=== PATIENT | male | born 1955 | race Caucasian/White ===

== ENCOUNTER 2017-02-11 16:11 | Emergency (ER) | payer SELFPAY ==
[~2017-02-11] VITALS: Ht 182.9 cm; Wt 65.8 kg
[~2017-02-11 16:11] MED LIST: ENOX40DI3 SQ; FOLI1TAB16 PO; HYDR-2762 PO; METO25TA4 PO; THIA100T22 PO
--- NOTE | 2017-02-11 17:16 | PHYS DOC ---
Past Medical History Past Medical History: Hypertension, Other Additional Past Medical Histor: CHRONIC BACK PAIN Past Surgical History: No Surgical History Alcohol Use: Occasionally Drug Use: None Adult General Chief Complaint Chief Complaint: SUTURE/STAPLE REMOVAL HPI HPI Patient is a 61 year old M who presents with staple removal status post left hip surgery. Patient states he was admitted last Saturday for left hip surgery status post fall while helping his dad fix a car. Patient has 2 incisions on his left hip with a total of [address] Patient denies any drainage from incisions. Patient denies any fevers. Patient denies any symptoms. Patient states he is able to ambulate with minimal pain. Patient states she's had no postoperative complications. Review of Systems Review of Systems GEN: Denies fevers, chills, sweats HEENT: Denies blurred vision, sore throat CV: Denies chest pain RESP: Denies shortness of air, cough GI: Denies n/v/d NEURO: Denies confusion, dizziness MSK: Denies weakness, joint pain/swelling Allergies Allergies Allergies Coded Allergies Type Severity Reaction Last Updated Verified lisinopril Allergy Severe Swelling 01/27/17 Yes Physical Exam Physical Exam GEN.: No apparent distress. Alert and oriented. HEENT: Head is normocephalic, atraumatic NECK: Supple. LUNGS: CTAB. HEART: RRR, S1, S2 present. Peripheral pulses intact ABDOMEN: Soft, nontender. Positive bowel sounds. EXTREMITIES: Without any cyanosis. 2 incisions to the left hip with a total of [address], incisions look clean/dry/intact and no signs of infection at this time del are able to be removed NEUROLOGIC: Normal speech, normal tone PSYCHIATRIC: Normal affect, normal mood. SKIN: No ulcerations Current Patient Data Vital Signs Vital Signs Date Time Temp Pulse Resp B/P (MAP) Pulse Ox O2 Delivery O2 Flow Rate FiO2 02/11/17 16:30 98.4 89 18 200/102 (134) 98 Room Air 98.4 EKG EKG [] Radiology/Procedures Radiology/Procedures Total of 7 del removed from 2 incisions of left hip with no Occasions and no signs of infection[] Course & Med Decision Making Course & Med Decision Making Pertinent Labs and Imaging studies reviewed. (See chart for details) MDM: After reviewing the chart, CC/HPI/PMH, physical exam, I do not believe the patient has a severe postop wound infection or wound dehiscence preventing the del being removed. Patient incision has healed enough to have the del removed. Recommended patient follow with PCP and orthopedics for further evaluation and management. Additional verbal discharge instructions were provided to the patient and that if symptoms get worse or any new symptoms arise that are worrisome to the patient he is to return to the emergency room immediately [] Dragon Disclaimer Dragon Disclaimer This electronic medical record was generated, in whole or in part, using a voice recognition dictation system. Departure Departure Impression: Primary Impression: Removal of staple Disposition: HOME, SELF-CARE Condition: IMPROVED Referrals: DIONE ARREDONDO (PCP) Patient Instructions: Wound Care, [id number] Additional Instructions: Please follow up with your family physician in the next one to 2 days ESTELA VARGAS DO Feb 11, 2017 17:16
[2017-02-11 17:23] VITALS: BP 169/106
== END 2017-02-11 17:30 | disposition home or self-care (01) ==
LOC: ER 16:11
DX: Z48.02 Encounter for removal of sutures (principal); I10 Essential (primary) hypertension; G89.29 Other chronic pain; Z88.8 Allergy status to other drugs, medicaments and biological substances
CPT/HCPCS: 99281

== ENCOUNTER 2018-09-10 03:19 | Inpatient (IN) | payer OTHER ==
[~2018-09-10] VITALS: Ht 182.9 cm; Wt 71.5 kg
[2018-09-10] VITALS (7 sets, daily range): BP systolic 108–161; BP diastolic 62–92
[~2018-09-10 03:19] MED LIST changes: -HYDR-2762 PO; +HYDR-2765 PO
[2018-09-10 03:49] LABS: BASO # 0.2 x10^3/uL (0.0-0.2); BASO % 2 % (0-3); EOS % 1 % (0-3); HEMATOCRIT 25.6 % (39.0-53.0); HEMOGLOBIN 7.8 g/dL (13.0-17.5); LYMPH # 1.9 x10^3/uL (1.0-4.8); LYMPH % 25 % (24-48); MEAN CORPUSCULAR HEMOGLOBIN 19 pg (25-35); MEAN CORPUSCULAR HGB CONC 31 g/dL (31-37); MEAN CORPUSCULAR VOLUME 62 fL (79-100); MONO % 14 % (0-9); NEUT # 4.4 x10^3uL (1.8-7.7); NEUT % 58 % (31-73); PLATELET COUNT 229 x10^3/uL (140-400); RED BLOOD COUNT 4.14 x10^6/uL (4.30-5.70); RED CELL DISTRIBUTION WIDTH 21.7 % (11.5-14.5); WHITE BLOOD COUNT 7.5 x10^3/uL (4.0-11.0)
[2018-09-10 03:59] LABS: PROTHROMBIN TIME PATIENT 18.5 SEC (11.7-14.0)
[2018-09-10] MEDS ORDERED: ASPIRIN 325 MG TABLET PO ONE (04:00)
[2018-09-10] MEDS ORDERED: IV NORMAL SALINE 1000ML BAG 1,000 ML IV ONE (04:00)
[2018-09-10 04:10] LABS: ALBUMIN/GLOBULIN RATIO 0.7 (1.0-1.7); CALCIUM 8.7 mg/dL (8.5-10.1); CREATININE 1.3 mg/dL (0.7-1.3); GFR 55.9; MAGNESIUM 1.6 mg/dL (1.8-2.4); TOTAL BILIRUBIN 1.8 mg/dL (0.2-1.0); TOTAL PROTEIN 7.2 g/dL (6.4-8.2)
[2018-09-10] MEDS ORDERED: ONDANSETRON PF 4 MG/2 ML VIAL. IV PRN (04:15)
[2018-09-10 04:18] LABS: CREATINE KINASE 59 U/L (39-308)
[2018-09-10 04:23] LABS: POTASSIUM 2.4 mmol/L (3.5-5.1)
[2018-09-10] MEDS ORDERED: dilTIAZem INJ 125 MG in IV DEXTROSE 5% 100ML 100 ML IV ONE (04:30)
[2018-09-10] MEDS ORDERED: dilTIAZem IV PUSH 25 MG/5 ML VIAL IVP ONE (04:30)
--- NOTE | 2018-09-10 04:40 | PHYS DOC ---
Past Medical History Past Medical History: Hypertension, Other Additional Past Medical Histor: CHRONIC BACK PAIN Past Surgical History: No Surgical History Alcohol Use: Occasionally Drug Use: None Adult General Chief Complaint Chief Complaint: CHEST PAIN HPI HPI Patient is a 63 year old male who presents with palpitations. Patient states the past 2 weeks he has been having sensation of an abnormal heartbeat. He is unsure the exact moment when these palpitations started and has never had similar symptoms before. Nothing has improved his symptoms. Symptoms are worsened with exertion. Patient denies any chest pain, nausea, vomiting, diaphoresis or abdominal pain. [] Review of Systems Review of Systems Constitutional: Denies fever or chills [] Eyes: Denies redness, or eye pain [] HENT: Denies nasal congestion or sore throat [] Respiratory: Reports exertional dyspnea, denies cough[] Cardiovascular: Reports abnormal heartbeat, denies chest pain[] GI: Denies abdominal pain, nausea, vomiting[] : Denies dysuria or hematuria [] Musculoskeletal: Denies back pain or joint pain, denies edema [] Integument: Denies rash or skin lesions [] Neurologic: Denies headache, focal weakness [] Complete systems were reviewed and found to be within normal limits, except as documented in this note. Current Medications Current Medications Current Medications Medications (Trade) Dose Ordered Sig/[facility] Start Time Stop Time Status Last Admin Dose Admin Aspirin (Luc Aspirin) 325 mg 1X ONCE 09/10/18 04:00 09/10/18 04:01 DC 09/10/18 04:13 325 MG Sodium Chloride 1,000 ml @ 1,000 mls/hr 1X ONCE 09/10/18 04:00 09/10/18 04:59 DC 09/10/18 04:15 1,000 MLS/HR Allergies Allergies Allergies Coded Allergies Type Severity Reaction Last Updated Verified lisinopril Allergy Severe Swelling 01/27/17 Yes Physical Exam Physical Exam Constitutional: No acute distress, non-toxic appearance. [] HENT: Normocephalic, atraumatic. [] Eyes: EOMI, conjunctiva normal, no discharge. [] Neck: Normal range of motion, supple. [] Cardiovascular: Irregularly irregular, tachycardic [] Lungs & Thorax: Bilateral breath sounds clear to auscultation [] Abdomen: Soft, no tenderness. [] Skin: Warm, dry, no erythema, no rash, jaundice. [] Back: No tenderness, no CVA tenderness. [] Extremities: No cyanosis, no clubbing, ROM intact, no edema. [] Neurologic: Alert and oriented X 3, no focal deficits noted. [] Psychologic: Affect normal, mood normal. [] Current Patient Data Vital Signs Vital Signs Date Time Temp Pulse Resp B/P (MAP) Pulse Ox O2 Delivery O2 Flow Rate FiO2 09/10/18 03:30 98.7 180 119/93 (102) 100 Room Air 98.7 Lab Values Laboratory Tests Test 09/10/18 03:39 White Blood Count 7.5 x10^3/uL (4.0-11.0) Red Blood Count 4.14 x10^6/uL (4.30-5.70) L Hemoglobin 7.8 g/dL (13.0-17.5) L Hematocrit 25.6 % (39.0-53.0) L Mean Corpuscular Volume 62 fL (79-100) L Mean Corpuscular Hemoglobin 19 pg (25-35) L Mean Corpuscular Hemoglobin Concent 31 g/dL (31-37) Red Cell Distribution Width 21.7 % (11.5-14.5) H Platelet Count 229 x10^3/uL (140-400) Neutrophils (%) (Auto) 58 % (31-73) Lymphocytes (%) (Auto) 25 % (24-48) Monocytes (%) (Auto) 14 % (0-9) H Eosinophils (%) (Auto) 1 % (0-3) Basophils (%) (Auto) 2 % (0-3) Neutrophils # (Auto) 4.4 x10^3uL (1.8-7.7) Lymphocytes # (Auto) 1.9 x10^3/uL (1.0-4.8) Monocytes # (Auto) 1.0 x10^3/uL (0.0-1.1) Eosinophils # (Auto) 0.0 x10^3/uL (0.0-0.7) Basophils # (Auto) 0.2 x10^3/uL (0.0-0.2) Platelet Estimate Adequate (ADEQUATE) Polychromasia Slight Hypochromasia Marked Poikilocytosis Mod Anisocytosis Mod Microcytosis Marked Target Cells Few Ovalocytes Mod Acanthocytes (Spur Cells) Occ Prothrombin Time 18.5 SEC (11.7-14.0) H Prothrombin Time INR 1.6 (0.8-1.1) H Sodium Level 134 mmol/L (136-145) L Potassium Level 2.4 mmol/L (3.5-5.1) *L Chloride Level 89 mmol/L (98-107) L Carbon Dioxide Level 37 mmol/L (21-32) H Anion Gap 8 (6-14) Blood Urea Nitrogen 26 mg/dL (8-26) Creatinine 1.3 mg/dL (0.7-1.3) Estimated GFR (Cockcroft-Gault) 55.9 BUN/Creatinine Ratio 20 (6-20) Glucose Level 115 mg/dL (70-99) H Calcium Level 8.7 mg/dL (8.5-10.1) Magnesium Level 1.6 mg/dL (1.8-2.4) L Total Bilirubin 1.8 mg/dL (0.2-1.0) H Aspartate Amino Transferase (AST) 74 U/L (15-37) H Alanine Aminotransferase (ALT) 103 U/L (16-63) H Alkaline Phosphatase 84 U/L (46-116) Creatine Kinase 59 U/L (39-308) Creatine Kinase MB (Mass) 0.7 ng/mL (0.0-3.6) Creatine Kinase MB Relative Index % (0-4) Troponin I Quantitative 0.034 ng/mL (0.000-0.055) IK-Raq-C-Type Natriuretic Peptide 67895 pg/mL (0-124) H Total Protein 7.2 g/dL (6.4-8.2) Albumin 3.0 g/dL (3.4-5.0) L Albumin/Globulin Ratio 0.7 (1.0-1.7) L Lipase 295 U/L (73-393) Laboratory Tests 09/10/18 03:39 Laboratory Tests 09/10/18 03:39 EKG EKG @0325 Afib RVR at 142, occasional PVC, NO ST elevation, Compared to prior EKG from 01/27/17 which noted sinus tachycardia at 102bpm. Radiology/Procedures Radiology/Procedures Two-view chest x-ray Preliminary read by ER physician: No acute pulmonary process, possible fibrotic changes.[] Course & Med Decision Making Course & Med Decision Making 67-year-old male presented to the hospital for palpitations. Patient states that he has been having these symptoms for 2 weeks. Initial heart rate was in the 140s and irregular. Denies any history of atrial fibrillation in the past. Pertinent Labs and Imaging studies reviewed. Chest x-ray showed no focal pulmonary process. Labs demonstrated hypo-kalemia, hypomagnesemia, anemia. Atraumatic treatment with interval improvement. Patient requiring admission for further evaluation and treatment. Discussed with Dr. Allen who is in agreement with admission. Discussed findings and plan with patient and family, who acknowledge understanding and agreement.(See chart for details) [] Dragon Disclaimer Dragon Disclaimer This electronic medical record was generated, in whole or in part, using a voice recognition dictation system. Departure Departure Impression: Primary Impression: Atrial fibrillation with RVR Additional Impressions: Hypomagnesemia Hypokalemia Anemia Disposition: ADMITTED INPATIENT Admitting Physician: Other (Tiffany) Condition: GUARDED Referrals: DIONE ARREDONDO (PCP) Critical Care Time Critical care time was 30 minutes which includes time at bedside, spent in discussion of patient's care with specialists and/or family members, with interpretation of laboratory and/or radiological studies and is exclusive of procedures. Problem Qualifiers Additional Impressions: Anemia Anemia type: unspecified type Qualified Codes: D64.9 - Anemia, unspecified REJI GUZMAN DO Sep 10, 2018 04:40
[2018-09-10] MEDS ORDERED: POTASSIUM CHLORIDE 20 MEQ TABLET.ER. PO ONE ×3 (05:00→15:00)
[2018-09-10] MEDS ORDERED: MAGNESIUM SULFATE 2GM 50 ML IV ONE (05:00)
--- NOTE | 2018-09-10 05:01 | RAD ---
CHEST PA LATERAL Technique: PA and lateral views of the chest were obtained. Clinical History: palpitations Comparison: None. Findings: The heart is top normal in size. The pulmonary vessels appear normal. There is patchy reticular opacities throughout the lungs. The pleural margins are clear. Impression: Diffuse reticular opacities likely chronic pulmonary fibrosis. Comparison to an old chest x-ray may be helpful. Electronically signed by: Jonathan Gamino III, MD (09/10/2018 4:58 AM) [facility]
[2018-09-10 05:20] LABS: PLT ESTIMATE ADEQUATE (ADEQUATE); POLYCHROMASIA SLIGHT
[2018-09-10 05:21] LABS: ACANTHOCYTES OCC; ANISOCYTOSIS MOD; HYPOCHROMIA MARKED; MICROCYTOSIS MARKED; OVALOCYTES MOD; POIKILOCYTOSIS MOD; TARGET CELLS FEW
[2018-09-10 05:35] LABS: FECAL OB PT NEGATIVE (NEG)
--- NOTE | 2018-09-10 07:48 | EKG ---
[facility] [address] [place] [address] Test Date: 2018-09-10 Test Time: 03:25:27 Pat Name: KEN LYMAN Department: Room: 252 1 Gender: M Chief Cook: : [id number] Requested By: REJI GUZMAN Order Number: [id number] Reading MD: Mike Ahuja MD Measurements Intervals [place] Rate: 142 P: CA: QRS: 26 QRSD: 140 T: 15 QT: 318 QTc: 496 Interpretive Statements ATRIAL FIBRILLATION WITH RVR NON-SPECIFIC ST/T CHANGES PVC'S Electronically Signed On 09-11-2018 9:36:11 CDT by Mike Ahuja MD
[2018-09-10] MEDS: diphenhydrAMINE HCL 25 MG CAPSULE PO PRN ×2 (07:53→22:14)
[2018-09-10 09:27] LABS: BARBITURATES NEG (NEG); BENZODIAZEPINES NEG (NEG); CANNABINOIDS NEG (NEG); COCAINE NEG (NEG); METHADONE NEG (NEG); OPIATES NEG (NEG); PHENCYCLIDINE NEG (NEG)
[2018-09-10 09:28] LABS: AMPHETAMINE/METHAMPHETAMINE NEG (NEG)
--- NOTE | 2018-09-10 10:18 | PDOC2 ---
CARDIAC CONSULT DATE OF CONSULT Date of Consult DATE: 09/10/18 TIME: 10:11 REASON FOR CONSULT Reason for Consult: AFIB with RVR REFERRING PHYSICIAN Referring Physician: Dr. Calhoun SOURCE Source: Chart review, Patient HISTORY OF PRESENT ILLNESS HISTORY OF PRESENT ILLNESS This is a 63 yo male, with a history of hypertension, who presented secondary to itching. Patient reports his entire body has been itching for the last couple of weeks. No rash. Nothing has relieved or improved itching. Was noted in AFIB with RVR upon arrival to the ED. Denies any recent chest pain, palpitations, dizziness, diaphoresis, SOA, or nausea/vomiting. Reports feeling well aside from the itching. No known prior history of AFIB, but does not routinely follow with PCP. Was previously on antiHTN therapy, but ran out and quit taking. PAST MEDICAL HISTORY Cardiovascular: HTN Pulmonary: No pertinent hx CENTRAL NERVOUS SYSTEM: Other (no pertinent positives) GI: No pertinent hx Heme/Onc: No pertinent hx Hepatobiliary: No pertinent hx Psych: No pertinent hx Musculoskeletal: low back pain Rheumatologic: No pertinent hx Infectious disease: No pertinent hx ENT: No pertinent hx Renal/: No pertinent hx Endocrine: No pertinent hx Dermatology: No pertinent hx PAST SURGICAL HISTORY Past Surgical History: Other (Closed reduction and intramedullary nailing of left intertrochanteric hip fracture) FAMILY HISTORY Family History: Other (AFIB- brother ) SOCIAL HISTORY Smoke: 1 pack per day ALCOHOL: other (long-stading h/o ETOH (7-8 beers per day) Quit last year) Drugs: None Lives: with Family CURRENT MEDICATIONS CURRENT MEDICATIONS Current Medications Medications (Trade) Dose Ordered Sig/Debbie Route PRN Reason Start Time Stop Time Status Last Admin Dose Admin Aspirin (Luc Aspirin) 325 mg 1X ONCE PO 09/10/18 04:00 09/10/18 04:01 DC 09/10/18 04:13 Sodium Chloride 1,000 ml @ 1,000 mls/hr 1X ONCE IV 09/10/18 04:00 09/10/18 04:59 DC 09/10/18 04:15 Diltiazem HCl (Cardizem Iv Push) 20 mg 1X ONCE IVP 09/10/18 04:30 09/10/18 04:31 DC 09/10/18 04:14 Diltiazem HCl 125 mg/Dextrose 125 ml @ 5 mls/hr 1X ONCE IV 09/10/18 04:30 09/11/18 05:29 09/10/18 04:15 Potassium Chloride (Klor-Con) 40 meq 1X ONCE PO 09/10/18 05:00 09/10/18 05:01 DC 09/10/18 04:49 Magnesium Sulfate 50 ml @ 25 mls/hr 1X ONCE IV 09/10/18 05:00 09/10/18 06:59 DC 09/10/18 04:50 Diphenhydramine HCl (Benadryl) 25 mg PRN Q6HRS PRN PO ITCHING 09/10/18 07:45 09/10/18 07:53 ALLERGIES ALLERGIES: Coded Allergies: lisinopril (Verified Allergy, Severe, Swelling, 01/27/17) ANGIOEDEMA ROS Review of System 14 point ROS conducted with pertinent positives noted above in HPI. PHYSICAL EXAM General: Alert, Oriented X3, Cooperative, No acute distress HEENT: Atraumatic Lungs: Clear to auscultation Heart: Other (IRR; tele AFIB- rate 85-110) Abdomen: Soft, No tenderness Extremities: No edema, Normal pulses Skin: No breakdown, No significant lesion Neuro: Normal speech, Sensation intact Psych/Mental Status: Mental status NL, Mood NL MUSCULOSKELETAL: Osteoarthritic changes both hands VITALS VITALS Vital Signs Date Time Temp Pulse Resp B/P (MAP) Pulse Ox O2 Delivery O2 Flow Rate FiO2 09/10/18 08:00 Room Air 09/10/18 06:40 104 121/62 (81) 09/10/18 06:10 98.2 16 94 98.2 LABS Lab: Laboratory Tests Test 09/10/18 03:39 09/10/18 05:20 09/10/18 07:00 09/10/18 09:00 White Blood Count 7.5 x10^3/uL (4.0-11.0) Red Blood Count 4.14 x10^6/uL (4.30-5.70) Hemoglobin 7.8 g/dL (13.0-17.5) Hematocrit 25.6 % (39.0-53.0) Mean Corpuscular Volume 62 fL (79-100) Mean Corpuscular Hemoglobin 19 pg (25-35) Mean Corpuscular Hemoglobin Concent 31 g/dL (31-37) Red Cell Distribution Width 21.7 % (11.5-14.5) Platelet Count 229 x10^3/uL (140-400) Neutrophils (%) (Auto) 58 % (31-73) Lymphocytes (%) (Auto) 25 % (24-48) Monocytes (%) (Auto) 14 % (0-9) Eosinophils (%) (Auto) 1 % (0-3) Basophils (%) (Auto) 2 % (0-3) Neutrophils # (Auto) 4.4 x10^3uL (1.8-7.7) Lymphocytes # (Auto) 1.9 x10^3/uL (1.0-4.8) Monocytes # (Auto) 1.0 x10^3/uL (0.0-1.1) Eosinophils # (Auto) 0.0 x10^3/uL (0.0-0.7) Basophils # (Auto) 0.2 x10^3/uL (0.0-0.2) Platelet Estimate Adequate (ADEQUATE) Polychromasia Slight Hypochromasia Marked Poikilocytosis Mod Anisocytosis Mod Microcytosis Marked Target Cells Few Ovalocytes Mod Acanthocytes Occ Prothrombin Time 18.5 SEC (11.7-14.0) Prothromb Time International Ratio 1.6 (0.8-1.1) Sodium Level 134 mmol/L (136-145) Potassium Level 2.4 mmol/L (3.5-5.1) Chloride Level 89 mmol/L (98-107) Carbon Dioxide Level 37 mmol/L (21-32) Anion Gap 8 (6-14) Blood Urea Nitrogen 26 mg/dL (8-26) Creatinine 1.3 mg/dL (0.7-1.3) Estimated GFR (Cockcroft-Gault) 55.9 BUN/Creatinine Ratio 20 (6-20) Glucose Level 115 mg/dL (70-99) Calcium Level 8.7 mg/dL (8.5-10.1) Magnesium Level 1.6 mg/dL (1.8-2.4) Total Bilirubin 1.8 mg/dL (0.2-1.0) Aspartate Amino Transf (AST/SGOT) 74 U/L (15-37) Alanine Aminotransferase (ALT/SGPT) 103 U/L (16-63) Alkaline Phosphatase 84 U/L (46-116) Creatine Kinase 59 U/L (39-308) Creatine Kinase MB (Mass) 0.7 ng/mL (0.0-3.6) Creatine Kinase MB Relative Index % (0-4) Troponin I Quantitative 0.034 ng/mL (0.000-0.055) 0.045 ng/mL (0.000-0.055) UX-Vmj-Z-Type Natriuretic Peptide 39316 pg/mL (0-124) Total Protein 7.2 g/dL (6.4-8.2) Albumin 3.0 g/dL (3.4-5.0) Albumin/Globulin Ratio 0.7 (1.0-1.7) Lipase 295 U/L (73-393) Stool Occult Blood Negative (NEG) Urine Opiates Screen Neg (NEG) Urine Methadone Screen Neg (NEG) Urine Barbiturates Neg (NEG) Urine Phencyclidine Screen Neg (NEG) Urine Amphetamine/Methamphetamine Neg (NEG) Urine Benzodiazepines Screen Neg (NEG) Urine Cocaine Screen Neg (NEG) Urine Cannabinoids Screen Neg (NEG) Urine Ethyl Alcohol Neg (NEG) ASSESSMENT/PLAN ASSESSMENT/PLAN 1. AFIB with RVR; rate fairly well controlled on Cardizem gtt. 2. Hypertension; controlled on CCB 3. Severe hypokalemia; replaced 4. Hypokalemia 5. Anemia; hgb 7.4 6. Elevated LFTs; ? liver disease 7. Persistent itching; no rash 8. Elevated NT Pro BNP; CXR without congestion. No JVD 9. Tobaccoism; discussed and encouraged cessation Recommendations Echo to assess LV systolic function Lipids, TSH. Recheck K and Mg- replace as warranted Covert Cardizem to oral unless significant LV dysfunction is noted on TTE. titrate off gtt. [id number] score 1 correlating with a 0.6% risk for stroke Will add ASA for stroke prevention for now give anemia Further recommendations pending above MAYO BUSTOS APRN Sep 10, 2018 10:18
[2018-09-10 10:56] LABS: CALCIUM 8.2 mg/dL (8.5-10.1); CREATININE 1.3 mg/dL (0.7-1.3); GFR 55.9
[2018-09-10 11:01] LABS: CHOLESTEROL/HDL RATIO 3.3
[2018-09-10 11:01] LABS: POTASSIUM 2.6 mmol/L (3.5-5.1)
--- NOTE | 2018-09-10 11:49 | CARD ---
MR#: [id number] Date of Study: 09/10/2018 Ordering Physician: MAYO BUSTOS, Referring Physician: NNEKA MACIEL Tech: Shelli Juarez RDCS APPROVED REPORT EXAM: Two-dimensional and M-mode echocardiogram with Doppler and color Doppler. Other Information Quality : Good INDICATION Atrial Fibrillation 2D DIMENSIONS RVDd4.0 (2.9-3.5cm)Left Atrium(2D)4.5 (1.6-4.0cm) IVSd1.2 (0.7-1.1cm)Aortic Root(2D)3.4 (2.0-3.7cm) LVDd4.7 (3.9-5.9cm)LVOT Diameter2.1 (1.8-2.4cm) PWd1.1 (0.7-1.1cm)LVDs4.2 (2.5-4.0cm) FS (%) 25.0 %SV25.3 ml Aortic Valve AoV Peak Peyman.140.2cm/sAoV VTI19.3cm AO Peak GR.7.9mmHgLVOT VTI 13.16cm AO Mean GR.4mmHg Mitral Valve MV E Biziglgn67.4cm/sMV DECEL [id number] TDI Lateral E' P. V10.36cm/sMedial E' P. V3.86cm/s E/Lateral E'9.3E/Medial E'25.0 Tricuspid Valve TR P. [id number]/sRAP [id number] TR Peak Gr.[id number] LEFT VENTRICLE The left ventricle is normal size. There is normal left ventricular wall thickness. Left ventricle sy stolic function is low normal. The Ejection Fraction is estimated at 50%. Septal motion consistent wi th conduction abnormality. RIGHT VENTRICLE The right ventricle is normal size. The right ventricular systolic function is normal. ATRIA The left atrium is mildly dilated. The right atrium is mildly dilated. The interatrial septum is inta ct with no evidence for an atrial septal defect or patent foramen ovale as noted on 2-D or Doppler im aging. AORTIC VALVE The aortic valve is calcified but opens well. Doppler and Color Flow revealed no significant aortic r egurgitation. There is no significant aortic valvular stenosis. MITRAL VALVE The mitral valve is calcified but opens well. Mitral annular calcification is mild. There is no evide nce of mitral valve prolapse. There is no mitral valve stenosis. Doppler and Color-flow revealed mild to moderate mitral regurgitation. TRICUSPID VALVE The tricuspid valve is normal in structure and function. Doppler and Color Flow revealed mild tricusp id regurgitation. There is moderate pulmonary hypertension. The PA pressure was estimated at 40 mmHg. There is no tricuspid valve stenosis. PULMONIC VALVE The pulmonary valve is normal in structure and function. Doppler and Color Flow revealed mild pulmoni c valvular regurgitation. There is no pulmonic valvular stenosis. GREAT VESSELS The aortic root is normal in size. The ascending aorta is normal in size. The IVC is dilated and lake apses >50% with inspiration. PERICARDIAL EFFUSION There is no evidence of significant pericardial effusion. Critical Notification Critical Value: No <Conclusion> The left ventricle is normal size. Left ventricle systolic function is low normal. The Ejection Fraction is estimated at 50%. Septal motion consistent with conduction abnormality. There is no significant aortic valvular stenosis. Doppler and Color Flow revealed no significant aortic regurgitation. Doppler and Color-flow revealed mild to moderate mitral regurgitation. Doppler and Color Flow revealed mild tricuspid regurgitation. There is moderate pulmonary hypertension. The PA pressure was estimated at 40 mmHg. Signed by : Robin Adam MD Electronically Approved : 09/10/2018 11:48:42
[2018-09-10] MEDS ORDERED: hydrOXYzine 10 MG TABLET PO PRN (12:15)
--- NOTE | 2018-09-10 12:15 | NUR ---
Paged primary physician who arrived on unit. Advised concern regarding pt wanting to leave AMA. Primary physician went in room to speak to pt at bedside.
[2018-09-10] MEDS: CALCIUM CARBONATE 500 MG TAB.CHEW PO PRN ×2 (12:22→14:14)
[2018-09-10] MEDS: hydrOXYzine PAMOATE 25 MG CAPSULE PO PRN (12:38)
[2018-09-10] MEDS ORDERED: LIDO:MAALOX 1:1 20 ML SINGLE DOSE. PO PRN (14:15)
--- NOTE | 2018-09-10 14:23 | NUR ---
SS following for discharge planning. SS reviewed pt chart. Pt is from home with room air. SS received referral regarding "poor hygiene and lack of resources." Pt has [facility] Plan. Anh from [facility] meeting with pt to discuss home healthcare services at home. SS will continue to follow for discharge planning.
--- NOTE | 2018-09-10 19:44 | PDOC1 ---
History and Physical Date of Admission Date of Admission 09/10/2018 Identification/Chief Complaint Chief Complaint I am itchy and have reflux Source Source: Caregiver, Patient History of Present Illness History of Present Illness Patient is a 63 year old male with past medical history of hypertension who comes to the ER with severe pruritus who was found to have atrial fibrillation with RVR. The patient does not give hsitory fo chest pain no palpitations, no shortness of breath. No recent infections, no pleuritic pain, no chest pain, no fever or chills. Patient does not have history of syncopal episodes he has not had neurolgoical deficits and has not had loss of consciousness. Patient is being admitted for evaluation of new onset atrial fibrillation. Past Medical History Cardiovascular: HTN Pulmonary: No pertinent hx CENTRAL NERVOUS SYSTEM: Other (no pertinent positives) GI: No pertinent hx Heme/Onc: No pertinent hx Hepatobiliary: No pertinent hx Psych: No pertinent hx Rheumatologic: No pertinent hx Infectious disease: No pertinent hx ENT: No pertinent hx Renal/: No pertinent hx Endocrine: No pertinent hx Dermatology: No pertinent hx Past Surgical History Past Surgical History: Other (Closed reduction and intramedullary nailing of left intertrochanteric hip fracture) Family History Family History: Other (AFIB- brother ) Social History Smoke: 1 pack per day ALCOHOL: other (long-stading h/o ETOH (7-8 beers per day) Quit last year) Drugs: None Current Problem List Problem List Problems Medical Problems: (1) Anemia Status: Acute (2) Hypokalemia Status: Acute (3) Hypomagnesemia Status: Acute Current Medications Current Medications Current Medications Medications (Trade) Dose Ordered Sig/Debbie Start Time Stop Time Status Last Admin Dose Admin Aspirin (Luc Aspirin) 325 mg 1X ONCE 09/10/18 04:00 09/10/18 04:01 DC 09/10/18 04:13 325 MG Aspirin (Ecotrin) 81 mg [id number] 09/11/18 08:00 Calcium Carbonate/ Glycine (Tums) 500 mg PRN Q2HRS PRN 09/10/18 12:15 09/10/18 14:14 500 MG Diltiazem HCl (Cardizem 24hr Cd) 240 mg DAILY 09/10/18 12:00 09/10/18 11:33 240 MG Diltiazem HCl (Cardizem Iv Push) 20 mg 1X ONCE 09/10/18 04:30 09/10/18 04:31 DC 09/10/18 04:14 20 MG Diltiazem HCl 125 mg/Dextrose 125 ml @ 5 mls/hr 1X ONCE 09/10/18 04:30 09/11/18 05:29 09/10/18 04:15 5 MLS/HR Diphenhydramine HCl (Benadryl) 25 mg PRN Q6HRS PRN 09/10/18 07:45 09/10/18 07:53 25 MG Hydroxyzine Pamoate (Vistaril) 25 mg PRN Q8HRS PRN 09/10/18 12:22 09/10/18 12:38 25 MG Hydroxyzine HCl (Atarax) 25 mg PRN Q8HRS PRN 09/10/18 12:15 09/10/18 12:22 DC Magnesium Sulfate 50 ml @ 25 mls/hr 1X ONCE 09/10/18 05:00 09/10/18 06:59 DC 09/10/18 04:50 25 MLS/HR Multi-Ingredient Mouthwash/Gargle (Gi Cocktail) 20 ml PRN QID PRN 09/10/18 14:15 09/10/18 15:12 20 ML Ondansetron HCl (Zofran) 4 mg PRN Q8HRS PRN 09/10/18 04:15 09/11/18 04:14 Pantoprazole Sodium (PROTONIX VIAL for IV PUSH) 40 mg BID 09/10/18 21:00 Potassium Chloride (Klor-Con) 40 meq 1X ONCE 09/10/18 15:00 09/10/18 15:01 DC 09/10/18 15:11 40 MEQ Sodium Chloride 1,000 ml @ 1,000 mls/hr 1X ONCE 09/10/18 04:00 09/10/18 04:59 DC 09/10/18 04:15 1,000 MLS/HR Allergies Allergies Allergies Coded Allergies Type Severity Reaction Last Updated Verified lisinopril Allergy Severe Swelling 01/27/17 Yes ROS Review of System CONSTITUTIONAL: No fever or chills EYES: No recent changes SKIN: No rash or itching CARDIOVASCULAR: No chest pain, syncope, palpitations, or edema RESPIRATORY: No SOB or cough GASTROINTESTINAL: No nausea, vomiting or abdominal pain NEUROLOGICAL: No headaches or weakness ENDOCRINE: No cold or heat intolerance + pruritus GENITOURINARY: No urgency or frequency of urination MUSCULOSKELETAL: No back pain or joint pain LYMPHATICS: No enlarged lymph nodes PSYCHIATRIC: No anxiety or depression Physical Exam Physical Exam GEN.: No apparent distress. Alert and oriented. HEENT: Head is normocephalic, atraumatic NECK: Supple. LUNGS: Clear to auscultation. HEART: Irregular RR, S1, S2 present. Peripheral pulses intact ABDOMEN: Soft, nontender. Positive bowel sounds. EXTREMITIES: Without any cyanosis. NEUROLOGIC: Normal speech, normal tone PSYCHIATRIC: Normal affect, normal mood. SKIN: No ulcerations Vitals Vitals Vital Signs Date Time Temp Pulse Resp B/P (MAP) Pulse Ox O2 Delivery O2 Flow Rate FiO2 09/10/18 14:51 97.5 100 16 108/83 (91) 97 Room Air 97.5 Labs Labs Laboratory Tests Test 09/10/18 03:39 09/10/18 05:20 09/10/18 07:00 09/10/18 09:00 White Blood Count 7.5 x10^3/uL (4.0-11.0) Red Blood Count 4.14 x10^6/uL (4.30-5.70) Hemoglobin 7.8 g/dL (13.0-17.5) Hematocrit 25.6 % (39.0-53.0) Mean Corpuscular Volume 62 fL (79-100) Mean Corpuscular Hemoglobin 19 pg (25-35) Mean Corpuscular Hemoglobin Concent 31 g/dL (31-37) Red Cell Distribution Width 21.7 % (11.5-14.5) Platelet Count 229 x10^3/uL (140-400) Neutrophils (%) (Auto) 58 % (31-73) Lymphocytes (%) (Auto) 25 % (24-48) Monocytes (%) (Auto) 14 % (0-9) Eosinophils (%) (Auto) 1 % (0-3) Basophils (%) (Auto) 2 % (0-3) Neutrophils # (Auto) 4.4 x10^3uL (1.8-7.7) Lymphocytes # (Auto) 1.9 x10^3/uL (1.0-4.8) Monocytes # (Auto) 1.0 x10^3/uL (0.0-1.1) Eosinophils # (Auto) 0.0 x10^3/uL (0.0-0.7) Basophils # (Auto) 0.2 x10^3/uL (0.0-0.2) Platelet Estimate Adequate (ADEQUATE) Polychromasia Slight Hypochromasia Marked Poikilocytosis Mod Anisocytosis Mod Microcytosis Marked Target Cells Few Ovalocytes Mod Acanthocytes Occ Prothrombin Time 18.5 SEC (11.7-14.0) Prothromb Time International Ratio 1.6 (0.8-1.1) Sodium Level 134 mmol/L (136-145) Potassium Level 2.4 mmol/L (3.5-5.1) Chloride Level 89 mmol/L (98-107) Carbon Dioxide Level 37 mmol/L (21-32) Anion Gap 8 (6-14) Blood Urea Nitrogen 26 mg/dL (8-26) Creatinine 1.3 mg/dL (0.7-1.3) Estimated GFR (Cockcroft-Gault) 55.9 BUN/Creatinine Ratio 20 (6-20) Glucose Level 115 mg/dL (70-99) Calcium Level 8.7 mg/dL (8.5-10.1) Magnesium Level 1.6 mg/dL (1.8-2.4) Total Bilirubin 1.8 mg/dL (0.2-1.0) Aspartate Amino Transf (AST/SGOT) 74 U/L (15-37) Alanine Aminotransferase (ALT/SGPT) 103 U/L (16-63) Alkaline Phosphatase 84 U/L (46-116) Creatine Kinase 59 U/L (39-308) Creatine Kinase MB (Mass) 0.7 ng/mL (0.0-3.6) Creatine Kinase MB Relative Index % (0-4) Troponin I Quantitative 0.034 ng/mL (0.000-0.055) 0.045 ng/mL (0.000-0.055) SJ-Rey-K-Type Natriuretic Peptide 34315 pg/mL (0-124) Total Protein 7.2 g/dL (6.4-8.2) Albumin 3.0 g/dL (3.4-5.0) Albumin/Globulin Ratio 0.7 (1.0-1.7) Lipase 295 U/L (73-393) Stool Occult Blood Negative (NEG) Triglycerides Level 46 mg/dL (0-150) Cholesterol Level 53 mg/dL (0-200) LDL Cholesterol, Calculated 28 mg/dL (0-100) VLDL Cholesterol, Calculated 9 mg/dL (0-40) Non-HDL Cholesterol Calculated 37 mg/dL (0-129) HDL Cholesterol 16 mg/dL (40-60) Cholesterol/HDL Ratio 3.3 Urine Opiates Screen Neg (NEG) Urine Methadone Screen Neg (NEG) Urine Barbiturates Neg (NEG) Urine Phencyclidine Screen Neg (NEG) Urine Amphetamine/Methamphetamine Neg (NEG) Urine Benzodiazepines Screen Neg (NEG) Urine Cocaine Screen Neg (NEG) Urine Cannabinoids Screen Neg (NEG) Urine Ethyl Alcohol Neg (NEG) Test 09/10/18 09:55 Sodium Level 134 mmol/L (136-145) Potassium Level 2.6 mmol/L (3.5-5.1) Chloride Level 90 mmol/L (98-107) Carbon Dioxide Level 35 mmol/L (21-32) Anion Gap 9 (6-14) Blood Urea Nitrogen 24 mg/dL (8-26) Creatinine 1.3 mg/dL (0.7-1.3) Estimated GFR (Cockcroft-Gault) 55.9 Glucose Level 116 mg/dL (70-99) Calcium Level 8.2 mg/dL (8.5-10.1) Magnesium Level 2.0 mg/dL (1.8-2.4) Troponin I Quantitative 0.040 ng/mL (0.000-0.055) Thyroid Stimulating Hormone (TSH) 0.932 uIU/mL (0.358-3.74) Laboratory Tests Test 09/10/18 03:39 09/10/18 05:20 09/10/18 07:00 09/10/18 09:00 White Blood Count 7.5 x10^3/uL (4.0-11.0) Red Blood Count 4.14 x10^6/uL (4.30-5.70) Hemoglobin 7.8 g/dL (13.0-17.5) Hematocrit 25.6 % (39.0-53.0) Mean Corpuscular Volume 62 fL (79-100) Mean Corpuscular Hemoglobin 19 pg (25-35) Mean Corpuscular Hemoglobin Concent 31 g/dL (31-37) Red Cell Distribution Width 21.7 % (11.5-14.5) Platelet Count 229 x10^3/uL (140-400) Neutrophils (%) (Auto) 58 % (31-73) Lymphocytes (%) (Auto) 25 % (24-48) Monocytes (%) (Auto) 14 % (0-9) Eosinophils (%) (Auto) 1 % (0-3) Basophils (%) (Auto) 2 % (0-3) Neutrophils # (Auto) 4.4 x10^3uL (1.8-7.7) Lymphocytes # (Auto) 1.9 x10^3/uL (1.0-4.8) Monocytes # (Auto) 1.0 x10^3/uL (0.0-1.1) Eosinophils # (Auto) 0.0 x10^3/uL (0.0-0.7) Basophils # (Auto) 0.2 x10^3/uL (0.0-0.2) Platelet Estimate Adequate (ADEQUATE) Polychromasia Slight Hypochromasia Marked Poikilocytosis Mod Anisocytosis Mod Microcytosis Marked Target Cells Few Ovalocytes Mod Acanthocytes Occ Prothrombin Time 18.5 SEC (11.7-14.0) Prothromb Time International Ratio 1.6 (0.8-1.1) Sodium Level 134 mmol/L (136-145) Potassium Level 2.4 mmol/L (3.5-5.1) Chloride Level 89 mmol/L (98-107) Carbon Dioxide Level 37 mmol/L (21-32) Anion Gap 8 (6-14) Blood Urea Nitrogen 26 mg/dL (8-26) Creatinine 1.3 mg/dL (0.7-1.3) Estimated GFR (Cockcroft-Gault) 55.9 BUN/Creatinine Ratio 20 (6-20) Glucose Level 115 mg/dL (70-99) Calcium Level 8.7 mg/dL (8.5-10.1) Magnesium Level 1.6 mg/dL (1.8-2.4) Total Bilirubin 1.8 mg/dL (0.2-1.0) Aspartate Amino Transf (AST/SGOT) 74 U/L (15-37) Alanine Aminotransferase (ALT/SGPT) 103 U/L (16-63) Alkaline Phosphatase 84 U/L (46-116) Creatine Kinase 59 U/L (39-308) Creatine Kinase MB (Mass) 0.7 ng/mL (0.0-3.6) Creatine Kinase MB Relative Index % (0-4) Troponin I Quantitative 0.034 ng/mL (0.000-0.055) 0.045 ng/mL (0.000-0.055) TQ-Quf-F-Type Natriuretic Peptide 99184 pg/mL (0-124) Total Protein 7.2 g/dL (6.4-8.2) Albumin 3.0 g/dL (3.4-5.0) Albumin/Globulin Ratio 0.7 (1.0-1.7) Lipase 295 U/L (73-393) Stool Occult Blood Negative (NEG) Triglycerides Level 46 mg/dL (0-150) Cholesterol Level 53 mg/dL (0-200) LDL Cholesterol, Calculated 28 mg/dL (0-100) VLDL Cholesterol, Calculated 9 mg/dL (0-40) Non-HDL Cholesterol Calculated 37 mg/dL (0-129) HDL Cholesterol 16 mg/dL (40-60) Cholesterol/HDL Ratio 3.3 Urine Opiates Screen Neg (NEG) Urine Methadone Screen Neg (NEG) Urine Barbiturates Neg (NEG) Urine Phencyclidine Screen Neg (NEG) Urine Amphetamine/Methamphetamine Neg (NEG) Urine Benzodiazepines Screen Neg (NEG) Urine Cocaine Screen Neg (NEG) Urine Cannabinoids Screen Neg (NEG) Urine Ethyl Alcohol Neg (NEG) Test 09/10/18 09:55 Sodium Level 134 mmol/L (136-145) Potassium Level 2.6 mmol/L (3.5-5.1) Chloride Level 90 mmol/L (98-107) Carbon Dioxide Level 35 mmol/L (21-32) Anion Gap 9 (6-14) Blood Urea Nitrogen 24 mg/dL (8-26) Creatinine 1.3 mg/dL (0.7-1.3) Estimated GFR (Cockcroft-Gault) 55.9 Glucose Level 116 mg/dL (70-99) Calcium Level 8.2 mg/dL (8.5-10.1) Magnesium Level 2.0 mg/dL (1.8-2.4) Troponin I Quantitative 0.040 ng/mL (0.000-0.055) Thyroid Stimulating Hormone (TSH) 0.932 uIU/mL (0.358-3.74) VTE Prophylaxis Ordered VTE Prophylaxis Devices: No VTE Pharmacological Prophylaxi: Yes Assessment/Plan Assessment/Plan AFIB with RVR; currently on Cardizem drip Generalized pruritus with no evidence of skin lesions History of essential Hypertension patient not taking medication at the present time. elecdtrolyte disturbances with severe hypokalemia; replaced Microcytic anemia, iron deficiency? Gi losses. given his smoking history would not be surprised he may have an underlying malignancy Tobacco abuse greater than 50 pack year history of smoking, counseling done less than 10 minutes. Plan: patient will continue with cardizem will have cardiology evaluation tobacco cessation discussed ppi atarax for pruritus will do iron panel in the am hemoccNNEKA Willingham MD Sep 10, 2018 19:44
[2018-09-10] MEDS: PANTOPRAZOLE IV PUSH 40 MG VIAL. IVP SCH (21:00)
[2018-09-11] VITALS (11 sets, daily range): BP systolic 97–137; BP diastolic 66–83
[2018-09-11 05:12] LABS: BASO # 0.1 x10^3/uL (0.0-0.2); BASO % 1 % (0-3); EOS % 0 % (0-3); HEMATOCRIT 22.5 % (39.0-53.0); LYMPH # 0.8 x10^3/uL (1.0-4.8); LYMPH % 7 % (24-48); MEAN CORPUSCULAR HEMOGLOBIN 19 pg (25-35); MEAN CORPUSCULAR HGB CONC 30 g/dL (31-37); MEAN CORPUSCULAR VOLUME 61 fL (79-100); MONO # 0.3 x10^3/uL (0.0-1.1); MONO % 2 % (0-9); NEUT # 10.7 x10^3uL (1.8-7.7); NEUT % 91 % (31-73); PLATELET COUNT 242 x10^3/uL (140-400); RED BLOOD COUNT 3.68 x10^6/uL (4.30-5.70); RED CELL DISTRIBUTION WIDTH 21.4 % (11.5-14.5); WHITE BLOOD COUNT 11.9 x10^3/uL (4.0-11.0)
[2018-09-11 05:13] LABS: ALBUMIN 2.8 g/dL (3.4-5.0); ALBUMIN/GLOBULIN RATIO 0.8 (1.0-1.7); CALCIUM 8.3 mg/dL (8.5-10.1); CREATININE 1.4 mg/dL (0.7-1.3); GFR 51.4; POTASSIUM 3.3 mmol/L (3.5-5.1); TOTAL BILIRUBIN 2.2 mg/dL (0.2-1.0); TOTAL PROTEIN 6.5 g/dL (6.4-8.2)
[2018-09-11 05:26] LABS: HEMOGLOBIN 6.8 g/dL (13.0-17.5)
--- NOTE | 2018-09-11 05:29 | NUR ---
Pt was disoriented and confused periodically throughout shift, removing telemetry and gown multiple times. Pts HR accelerated up to 160 (Afib RVR), appeared very anxious and non compliant with commands and education. Oxygen at 3L NC was applied, pts respirations reached mid 40's, also removing cannula repeatedly throughout shift. Critical hgb 6.8 called by lab, will page attending physician and await orders.
[2018-09-11] MEDS: CALCIUM CARBONATE 500 MG TAB.CHEW PO PRN (08:57)
[2018-09-11] MEDS: PANTOPRAZOLE IV PUSH 40 MG VIAL. IVP SCH ×2 (08:58→21:29)
[2018-09-11] MEDS: ASPIRIN ENTERIC COATED 81 MG TABLET.DR. PO SCH (08:58)
--- NOTE | 2018-09-11 10:09 | PDOC ---
CARDIO Progress Notes Date and Time Date of Service 09/11/18 Time of Evaluation 0920 Subjective Subjective: No Chest Pain, No shortness of breath, No Palpitations Vitals Vitals Vital Signs Date Time Temp Pulse Resp B/P (MAP) Pulse Ox O2 Delivery O2 Flow Rate FiO2 09/11/18 08:58 121 137/69 09/11/18 08:00 Room Air 09/11/18 07:00 97.8 22 95 97.8 09/11/18 02:05 3.0 Weight Weight [ ] Input and Output Intake and Output Intake and Output 09/11/18 06:59 Intake Total 1356.25 ml Output Total 500 ml Balance 856.25 ml Intake Oral 1280 ml IV Total 76.25 ml Output Urine Total 500 ml # Voids 2 Laboratory Labs Laboratory Tests Test 09/11/18 04:25 White Blood Count 11.9 x10^3/uL (4.0-11.0) Red Blood Count 3.68 x10^6/uL (4.30-5.70) Hemoglobin 6.8 g/dL (13.0-17.5) Hematocrit 22.5 % (39.0-53.0) Mean Corpuscular Volume 61 fL (79-100) Mean Corpuscular Hemoglobin 19 pg (25-35) Mean Corpuscular Hemoglobin Concent 30 g/dL (31-37) Red Cell Distribution Width 21.4 % (11.5-14.5) Platelet Count 242 x10^3/uL (140-400) Neutrophils (%) (Auto) 91 % (31-73) Lymphocytes (%) (Auto) 7 % (24-48) Monocytes (%) (Auto) 2 % (0-9) Eosinophils (%) (Auto) 0 % (0-3) Basophils (%) (Auto) 1 % (0-3) Neutrophils # (Auto) 10.7 x10^3uL (1.8-7.7) Lymphocytes # (Auto) 0.8 x10^3/uL (1.0-4.8) Monocytes # (Auto) 0.3 x10^3/uL (0.0-1.1) Eosinophils # (Auto) 0.0 x10^3/uL (0.0-0.7) Basophils # (Auto) 0.1 x10^3/uL (0.0-0.2) Sodium Level 132 mmol/L (136-145) Potassium Level 3.3 mmol/L (3.5-5.1) Chloride Level 92 mmol/L (98-107) Carbon Dioxide Level 31 mmol/L (21-32) Anion Gap 9 (6-14) Blood Urea Nitrogen 22 mg/dL (8-26) Creatinine 1.4 mg/dL (0.7-1.3) Estimated GFR (Cockcroft-Gault) 51.4 BUN/Creatinine Ratio 16 (6-20) Glucose Level 131 mg/dL (70-99) Calcium Level 8.3 mg/dL (8.5-10.1) Iron Level 16 ug/dL (65-175) Total Iron Binding Capacity 363 ug/dL (250-450) Iron Saturation 4 % (15-34) Total Bilirubin 2.2 mg/dL (0.2-1.0) Aspartate Amino Transf (AST/SGOT) 62 U/L (15-37) Alanine Aminotransferase (ALT/SGPT) 78 U/L (16-63) Alkaline Phosphatase 81 U/L (46-116) Total Protein 6.5 g/dL (6.4-8.2) Albumin 2.8 g/dL (3.4-5.0) Albumin/Globulin Ratio 0.8 (1.0-1.7) Physical Exam HEENT: Neck Supple W Full Motion Chest: Symmetric LUNGS: Clear to Auscultation Heart: S1S2, irregularly irregular (AFIB; rate intermittently elevated) Abdomen: Soft N/T Extremities: No Edema Neurology: alert, oriented, follow commands Assessment Assessment 1. AFIB with RVR; rate better controlled on oral Cardizem. Echo showed low normal LV systolic function with an EF of 50% 2. Hypertension; controlled 3. Hypokalemia 4. Anemia; hgb 6.8 today. transfused as warranted 5. Elevated LFTs, coagulopathy ? liver disease 6. Persistent itching; no rash. resolved 7. Elevated NT Pro BNP; CXR without congestion. No JVD 8. Tobaccoism; reinforced cessation Recommendations Replace K, monitor lytes Increase Cardizem for better rate control ASA for stroke prophylaxis given anemia, coagulopathy Consider further ischemic workup on an outpatient basis. MAYO BUSTOS APRN Sep 11, 2018 10:09
[2018-09-11] MEDS ORDERED: POTASSIUM CHLORIDE 20 MEQ TABLET.ER. PO ONE (11:00)
[2018-09-11] MEDS ORDERED: dilTIAZem HCL 30 MG TABLET PO ONE (11:00)
[2018-09-11] MEDS: hydrOXYzine PAMOATE 25 MG CAPSULE PO PRN (11:53)
--- NOTE | 2018-09-11 14:24 | PDOC ---
PROGRESS NOTES Chief Complaint Chief Complaint AFIB with RVR; currently on Cardizem drip Generalized pruritus with no evidence of skin lesions History of essential Hypertension patient not taking medication at the present time. electrolyte disturbances with severe hypokalemia; replaced Microcytic anemia, iron deficiency? GI losses. given his smoking history would not be surprised he may have an underlying malignancy, will consult GI Tobacco abuse greater than 50 pack year history of smoking, counseling done less than 10 minutes. Plan: continue with rate control will consult GI will transfuse one unti of prbcs History of Present Illness History of Present Illness Patient laying in bed in no apparent distress. The patient denies any dyspnea no chest pain or palpitations have been reported. Patient continues to have uncontrolled rate medications being adjusted by her community health consultant. Today his hemoglobin was less than 7 he will required 1 unit of packed red blood cells. Plan of care Splane detail to the patient and to his brother at bedside Vitals Vitals Vital Signs Date Time Temp Pulse Resp B/P (MAP) Pulse Ox O2 Delivery O2 Flow Rate FiO2 09/11/18 14:01 97.7 83 20 108/67 97.7 09/11/18 11:00 97 09/11/18 08:00 Room Air 09/11/18 02:05 3.0 Physical Exam General: Alert, Oriented X3, Cooperative, No acute distress Heart: Other (IRR; tele AFIB- rate 85-110) Lungs: Clear Abdomen: Soft, No tenderness Extremities: No edema, Normal pulses Skin: No breakdown, No significant lesion Labs LABS Laboratory Tests Test 09/11/18 04:25 White Blood Count 11.9 x10^3/uL (4.0-11.0) Red Blood Count 3.68 x10^6/uL (4.30-5.70) Hemoglobin 6.8 g/dL (13.0-17.5) Hematocrit 22.5 % (39.0-53.0) Mean Corpuscular Volume 61 fL (79-100) Mean Corpuscular Hemoglobin 19 pg (25-35) Mean Corpuscular Hemoglobin Concent 30 g/dL (31-37) Red Cell Distribution Width 21.4 % (11.5-14.5) Platelet Count 242 x10^3/uL (140-400) Neutrophils (%) (Auto) 91 % (31-73) Lymphocytes (%) (Auto) 7 % (24-48) Monocytes (%) (Auto) 2 % (0-9) Eosinophils (%) (Auto) 0 % (0-3) Basophils (%) (Auto) 1 % (0-3) Neutrophils # (Auto) 10.7 x10^3uL (1.8-7.7) Lymphocytes # (Auto) 0.8 x10^3/uL (1.0-4.8) Monocytes # (Auto) 0.3 x10^3/uL (0.0-1.1) Eosinophils # (Auto) 0.0 x10^3/uL (0.0-0.7) Basophils # (Auto) 0.1 x10^3/uL (0.0-0.2) Sodium Level 132 mmol/L (136-145) Potassium Level 3.3 mmol/L (3.5-5.1) Chloride Level 92 mmol/L (98-107) Carbon Dioxide Level 31 mmol/L (21-32) Anion Gap 9 (6-14) Blood Urea Nitrogen 22 mg/dL (8-26) Creatinine 1.4 mg/dL (0.7-1.3) Estimated GFR (Cockcroft-Gault) 51.4 BUN/Creatinine Ratio 16 (6-20) Glucose Level 131 mg/dL (70-99) Calcium Level 8.3 mg/dL (8.5-10.1) Iron Level 16 ug/dL (65-175) Total Iron Binding Capacity 363 ug/dL (250-450) Iron Saturation 4 % (15-34) Total Bilirubin 2.2 mg/dL (0.2-1.0) Aspartate Amino Transf (AST/SGOT) 62 U/L (15-37) Alanine Aminotransferase (ALT/SGPT) 78 U/L (16-63) Alkaline Phosphatase 81 U/L (46-116) Total Protein 6.5 g/dL (6.4-8.2) Albumin 2.8 g/dL (3.4-5.0) Albumin/Globulin Ratio 0.8 (1.0-1.7) Assessment and Plan Assessmemt and Plan Problems Medical Problems: (1) Anemia Status: Acute (2) Hypokalemia Status: Acute (3) Hypomagnesemia Status: Acute Comment Review of Relevant I have reviewed the following items daysi (where applicable) has been applied. Labs Laboratory Tests Test 09/10/18 03:39 09/10/18 05:20 09/10/18 07:00 09/10/18 09:00 White Blood Count 7.5 x10^3/uL (4.0-11.0) Red Blood Count 4.14 x10^6/uL (4.30-5.70) Hemoglobin 7.8 g/dL (13.0-17.5) Hematocrit 25.6 % (39.0-53.0) Mean Corpuscular Volume 62 fL (79-100) Mean Corpuscular Hemoglobin 19 pg (25-35) Mean Corpuscular Hemoglobin Concent 31 g/dL (31-37) Red Cell Distribution Width 21.7 % (11.5-14.5) Platelet Count 229 x10^3/uL (140-400) Neutrophils (%) (Auto) 58 % (31-73) Lymphocytes (%) (Auto) 25 % (24-48) Monocytes (%) (Auto) 14 % (0-9) Eosinophils (%) (Auto) 1 % (0-3) Basophils (%) (Auto) 2 % (0-3) Neutrophils # (Auto) 4.4 x10^3uL (1.8-7.7) Lymphocytes # (Auto) 1.9 x10^3/uL (1.0-4.8) Monocytes # (Auto) 1.0 x10^3/uL (0.0-1.1) Eosinophils # (Auto) 0.0 x10^3/uL (0.0-0.7) Basophils # (Auto) 0.2 x10^3/uL (0.0-0.2) Platelet Estimate Adequate (ADEQUATE) Polychromasia Slight Hypochromasia Marked Poikilocytosis Mod Anisocytosis Mod Microcytosis Marked Target Cells Few Ovalocytes Mod Acanthocytes Occ Prothrombin Time 18.5 SEC (11.7-14.0) Prothromb Time International Ratio 1.6 (0.8-1.1) Sodium Level 134 mmol/L (136-145) Potassium Level 2.4 mmol/L (3.5-5.1) Chloride Level 89 mmol/L (98-107) Carbon Dioxide Level 37 mmol/L (21-32) Anion Gap 8 (6-14) Blood Urea Nitrogen 26 mg/dL (8-26) Creatinine 1.3 mg/dL (0.7-1.3) Estimated GFR (Cockcroft-Gault) 55.9 BUN/Creatinine Ratio 20 (6-20) Glucose Level 115 mg/dL (70-99) Calcium Level 8.7 mg/dL (8.5-10.1) Magnesium Level 1.6 mg/dL (1.8-2.4) Total Bilirubin 1.8 mg/dL (0.2-1.0) Aspartate Amino Transf (AST/SGOT) 74 U/L (15-37) Alanine Aminotransferase (ALT/SGPT) 103 U/L (16-63) Alkaline Phosphatase 84 U/L (46-116) Creatine Kinase 59 U/L (39-308) Creatine Kinase MB (Mass) 0.7 ng/mL (0.0-3.6) Creatine Kinase MB Relative Index % (0-4) Troponin I Quantitative 0.034 ng/mL (0.000-0.055) 0.045 ng/mL (0.000-0.055) AY-Dku-C-Type Natriuretic Peptide 52080 pg/mL (0-124) Total Protein 7.2 g/dL (6.4-8.2) Albumin 3.0 g/dL (3.4-5.0) Albumin/Globulin Ratio 0.7 (1.0-1.7) Lipase 295 U/L (73-393) Stool Occult Blood Negative (NEG) Triglycerides Level 46 mg/dL (0-150) Cholesterol Level 53 mg/dL (0-200) LDL Cholesterol, Calculated 28 mg/dL (0-100) VLDL Cholesterol, Calculated 9 mg/dL (0-40) Non-HDL Cholesterol Calculated 37 mg/dL (0-129) HDL Cholesterol 16 mg/dL (40-60) Cholesterol/HDL Ratio 3.3 Urine Opiates Screen Neg (NEG) Urine Methadone Screen Neg (NEG) Urine Barbiturates Neg (NEG) Urine Phencyclidine Screen Neg (NEG) Urine Amphetamine/Methamphetamine Neg (NEG) Urine Benzodiazepines Screen Neg (NEG) Urine Cocaine Screen Neg (NEG) Urine Cannabinoids Screen Neg (NEG) Urine Ethyl Alcohol Neg (NEG) Test 09/10/18 09:55 09/11/18 04:25 Sodium Level 134 mmol/L (136-145) 132 mmol/L (136-145) Potassium Level 2.6 mmol/L (3.5-5.1) 3.3 mmol/L (3.5-5.1) Chloride Level 90 mmol/L (98-107) 92 mmol/L (98-107) Carbon Dioxide Level 35 mmol/L (21-32) 31 mmol/L (21-32) Anion Gap 9 (6-14) 9 (6-14) Blood Urea Nitrogen 24 mg/dL (8-26) 22 mg/dL (8-26) Creatinine 1.3 mg/dL (0.7-1.3) 1.4 mg/dL (0.7-1.3) Estimated GFR (Cockcroft-Gault) 55.9 51.4 Glucose Level 116 mg/dL (70-99) 131 mg/dL (70-99) Calcium Level 8.2 mg/dL (8.5-10.1) 8.3 mg/dL (8.5-10.1) Magnesium Level 2.0 mg/dL (1.8-2.4) Troponin I Quantitative 0.040 ng/mL (0.000-0.055) Thyroid Stimulating Hormone (TSH) 0.932 uIU/mL (0.358-3.74) White Blood Count 11.9 x10^3/uL (4.0-11.0) Red Blood Count 3.68 x10^6/uL (4.30-5.70) Hemoglobin 6.8 g/dL (13.0-17.5) Hematocrit 22.5 % (39.0-53.0) Mean Corpuscular Volume 61 fL (79-100) Mean Corpuscular Hemoglobin 19 pg (25-35) Mean Corpuscular Hemoglobin Concent 30 g/dL (31-37) Red Cell Distribution Width 21.4 % (11.5-14.5) Platelet Count 242 x10^3/uL (140-400) Neutrophils (%) (Auto) 91 % (31-73) Lymphocytes (%) (Auto) 7 % (24-48) Monocytes (%) (Auto) 2 % (0-9) Eosinophils (%) (Auto) 0 % (0-3) Basophils (%) (Auto) 1 % (0-3) Neutrophils # (Auto) 10.7 x10^3uL (1.8-7.7) Lymphocytes # (Auto) 0.8 x10^3/uL (1.0-4.8) Monocytes # (Auto) 0.3 x10^3/uL (0.0-1.1) Eosinophils # (Auto) 0.0 x10^3/uL (0.0-0.7) Basophils # (Auto) 0.1 x10^3/uL (0.0-0.2) BUN/Creatinine Ratio 16 (6-20) Iron Level 16 ug/dL (65-175) Total Iron Binding Capacity 363 ug/dL (250-450) Iron Saturation 4 % (15-34) Total Bilirubin 2.2 mg/dL (0.2-1.0) Aspartate Amino Transf (AST/SGOT) 62 U/L (15-37) Alanine Aminotransferase (ALT/SGPT) 78 U/L (16-63) Alkaline Phosphatase 81 U/L (46-116) Total Protein 6.5 g/dL (6.4-8.2) Albumin 2.8 g/dL (3.4-5.0) Albumin/Globulin Ratio 0.8 (1.0-1.7) Laboratory Tests Test 09/11/18 04:25 White Blood Count 11.9 x10^3/uL (4.0-11.0) Red Blood Count 3.68 x10^6/uL (4.30-5.70) Hemoglobin 6.8 g/dL (13.0-17.5) Hematocrit 22.5 % (39.0-53.0) Mean Corpuscular Volume 61 fL (79-100) Mean Corpuscular Hemoglobin 19 pg (25-35) Mean Corpuscular Hemoglobin Concent 30 g/dL (31-37) Red Cell Distribution Width 21.4 % (11.5-14.5) Platelet Count 242 x10^3/uL (140-400) Neutrophils (%) (Auto) 91 % (31-73) Lymphocytes (%) (Auto) 7 % (24-48) Monocytes (%) (Auto) 2 % (0-9) Eosinophils (%) (Auto) 0 % (0-3) Basophils (%) (Auto) 1 % (0-3) Neutrophils # (Auto) 10.7 x10^3uL (1.8-7.7) Lymphocytes # (Auto) 0.8 x10^3/uL (1.0-4.8) Monocytes # (Auto) 0.3 x10^3/uL (0.0-1.1) Eosinophils # (Auto) 0.0 x10^3/uL (0.0-0.7) Basophils # (Auto) 0.1 x10^3/uL (0.0-0.2) Sodium Level 132 mmol/L (136-145) Potassium Level 3.3 mmol/L (3.5-5.1) Chloride Level 92 mmol/L (98-107) Carbon Dioxide Level 31 mmol/L (21-32) Anion Gap 9 (6-14) Blood Urea Nitrogen 22 mg/dL (8-26) Creatinine 1.4 mg/dL (0.7-1.3) Estimated GFR (Cockcroft-Gault) 51.4 BUN/Creatinine Ratio 16 (6-20) Glucose Level 131 mg/dL (70-99) Calcium Level 8.3 mg/dL (8.5-10.1) Iron Level 16 ug/dL (65-175) Total Iron Binding Capacity 363 ug/dL (250-450) Iron Saturation 4 % (15-34) Total Bilirubin 2.2 mg/dL (0.2-1.0) Aspartate Amino Transf (AST/SGOT) 62 U/L (15-37) Alanine Aminotransferase (ALT/SGPT) 78 U/L (16-63) Alkaline Phosphatase 81 U/L (46-116) Total Protein 6.5 g/dL (6.4-8.2) Albumin 2.8 g/dL (3.4-5.0) Albumin/Globulin Ratio 0.8 (1.0-1.7) Medications Current Medications Aspirin (Luc Aspirin) 325 mg 1X ONCE PO Last administered on 09/10/18at 04:13 ; Start 09/10/18 at 04:00; Stop 09/10/18 at 04:01; Status DC Sodium Chloride 1,000 ml @ 1,000 mls/hr 1X ONCE IV Last administered on at 04:15; Start 09/10/18 at 04:00; Stop 09/10/18 at 04:59; Status DC Diltiazem HCl (Cardizem Iv Push) 20 mg 1X ONCE IVP Last administered on 04:14; Start 09/10/18 at 04:30; Stop 09/10/18 at 04:31; Status DC Diltiazem HCl 125 mg/Dextrose 125 ml @ 5 mls/hr 1X ONCE IV Last administered on 09/10/18 04:15; Start 09/10/18 at 04:30; Stop 09/11/18 at 05:29; Status DC Ondansetron HCl (Zofran) 4 mg PRN Q8HRS PRN IV NAUSEA/VOMITING 1ST CHOICE; Start 09/10/18 at 04:15; Stop 09/11/18 at 04:15; Status DC Potassium Chloride (Klor-Con) 40 meq 1X ONCE PO Last administered on 09/10/18 04:49; Start 09/10/18 at 05:00; Stop 09/10/18 at 05:01; Status DC Magnesium Sulfate 50 ml @ 25 mls/hr 1X ONCE IV Last administered on 09/10/18at 04:50; Start 09/10/18 at 05:00; Stop 09/10/18 at 06:59; Status DC Diphenhydramine HCl (Benadryl) 25 mg PRN Q6HRS PRN PO ITCHING, 1ST CHOICE Last administered on 09/10/18 22:14; Start 09/10/18 at 07:45 Aspirin (Ecotrin) 81 mg DAILYWBKFT PO Last administered on 09/11/18at 08:58; Start 09/11/18 at 08:00 Diltiazem HCl (Cardizem 24hr Cd) 240 mg DAILY PO Last administered on 09/11/18 08:58; Start 09/10/18 at 12:00; Stop 09/11/18 at 10:07; Status DC Potassium Chloride (Klor-Con) 40 meq 1X ONCE PO Last administered on 09/10/18 11:33; Start 09/10/18 at 11:15; Stop 09/10/18 at 11:16; Status DC Potassium Chloride (Klor-Con) 40 meq 1X ONCE PO Last administered on 09/10/18at 15:11; Start 09/10/18 at 15:00; Stop 09/10/18 at 15:01; Status DC Hydroxyzine HCl (Atarax) 25 mg PRN Q8HRS PRN PO ITCHING; Start 09/10/18 at 12:15 ; Stop 09/10/18 at 12:22; Status DC Calcium Carbonate/ Glycine (Tums) 500 mg PRN Q2HRS PRN PO INDIGESTION Last administered on 09/11/18 08:57; Start 09/10/18 at 12:15 Hydroxyzine Pamoate (Vistaril) 25 mg PRN Q8HRS PRN PO ITCHING, 2ND CHOICE Last administered on 09/11/18at 11:53; Start 09/10/18 at 12:22 Pantoprazole Sodium (PROTONIX VIAL for IV PUSH) 40 mg BID IVP Last administered on 09/11/18 08:58; Start 09/10/18 at 21:00 Multi-Ingredient Mouthwash/Gargle (Gi Cocktail) 20 ml PRN QID PRN PO CHEST PAIN Last administered on 09/10/18at 15:12; Start 09/10/18 at 14:15 Diltiazem HCl (Cardizem) 60 mg 1X ONCE PO Last administered on 09/11/18at 11:17 ; Start 09/11/18 at 11:00; Stop 09/11/18 at 11:01; Status DC Diltiazem HCl (Cardizem 24hr Cd) 300 mg DAILY PO ; Start 09/12/18 at 09:00 Potassium Chloride (Klor-Con) 40 meq 1X ONCE PO Last administered on 09/11/18 11:17; Start 09/11/18 at 11:00; Stop 09/11/18 at 11:01; Status DC Active Scripts Active Enoxaparin Sodium 40 Mg/0.4 Ml Disp.syrin 40 Mg SQ DAILY16 20 Days Vitamin B-1 (Thiamine Mononitrate) 100 Mg Tablet 100 Mg PO DAILY Metoprolol Tartrate 25 Mg Tablet 25 Mg PO BID Hydrocodone-Apap 7.5-325 (Hydrocodone Bit/Acetaminophen) 1 Each Tablet 1 Tab PO PRN Q3HRS PRN Folic Acid 1 Mg Tablet 1 Mg PO DAILY Vitals/I & O Vital Sign - Last 24 Hours 09/10/18 09/10/18 09/10/18 09/10/18 14:51 19:27 20:00 22:14 Temp 97.5 97.7 100.9 97.5 97.7 100.9 Pulse 100 96 131 Resp 16 16 40 B/P (MAP) 108/83 (91) 121/74 (90) 161/92 (115) Pulse Ox 97 92 97 O2 Delivery Room Air Room Air Room Air Nasal Cannula O2 Flow Rate 3.0 09/11/18 09/11/18 09/11/18 09/11/18 02:05 07:00 08:00 08:58 Temp 98.4 97.8 98.4 97.8 Pulse 110 121 121 Resp 28 22 B/P (MAP) 133/81 (98) 137/69 (91) 137/69 Pulse Ox 97 95 O2 Delivery Nasal Cannula Room Air O2 Flow Rate 3.0 09/11/18 09/11/18 09/11/18 09/11/18 11:00 11:17 11:47 12:03 Temp 97.7 98.0 97.5 97.7 98.0 97.5 Pulse 111 109 98 100 Resp 22 B/P (MAP) 126/68 (87) 126/68 120/73 116/79 Pulse Ox 97 09/11/18 09/11/18 13:01 14:01 Temp 98.0 97.7 98.0 97.7 Pulse 85 83 Resp 20 20 B/P (MAP) 97/66 108/67 Intake and Output 09/10/18 09/10/18 09/11/18 15:00 23:00 07:00 Intake Total 14 ml 862.25 ml 480 ml Output Total 300 ml 200 ml Balance -286 ml 662.25 ml 480 ml NNEKA MACIEL MD Sep 11, 2018 14:24
--- NOTE | 2018-09-11 14:51 | PDOC2 ---
GI CONSULT Reason For Consult: ALLI HPI: HPI: 63 y/o male who came to the ER for eval of pruritus, SOA, and dizziness x 2 weeks, admitted for A Fib RVR. D/w Dr. Tiffany AGUILAR asked to see re: ALLI. The patient is watching the [employer] game this afternoon and doesn't offer much history. Denies hematemesis, hematochezia, and melena. No n/v, abd pain, diarrhea, or constipation. No change in appetite or weight loss. Asked about heartburn - he said he had a stomach scope when he was 22 and they told him to take Mylanta but doesn't take anything regularly. No dysphagia. No previous colonoscopy. Reviewed chart - h/o hepatic steatosis and cholelithiasis on US in 2017. Also +Hep C at that time (which he didn't mention). "I take ibuprofen when I have a headache." PMH: PMH: HTN, cholelithiasis, Hep C left hip surgery FH: Family History: Cancer (lung - mother) Social History: Smoke: 1 pack per day ALCOHOL: other (heavy in the past, sober x 1 y ear) Drugs: None ROS: GEN: Denies fevers, chills, sweats HEENT: Denies blurred vision, sore throat CV: Denies chest pain RESP: +SOA GI: Per HPI : Denies hematuria, dysuria ENDO: Denies weight changes NEURO: +dizziness MSK: Denies weakness, joint pain/swelling SKIN: +pruritus Vitals: Vitals: Vital Signs Date Time Temp Pulse Resp B/P (MAP) Pulse Ox O2 Delivery O2 Flow Rate FiO2 09/11/18 14:01 97.7 83 20 108/67 97.7 09/11/18 11:00 97 09/11/18 08:00 Room Air 09/11/18 02:05 3.0 Labs: Labs: Laboratory Tests Test 09/11/18 04:25 White Blood Count 11.9 x10^3/uL (4.0-11.0) Red Blood Count 3.68 x10^6/uL (4.30-5.70) Hemoglobin 6.8 g/dL (13.0-17.5) Hematocrit 22.5 % (39.0-53.0) Mean Corpuscular Volume 61 fL (79-100) Mean Corpuscular Hemoglobin 19 pg (25-35) Mean Corpuscular Hemoglobin Concent 30 g/dL (31-37) Red Cell Distribution Width 21.4 % (11.5-14.5) Platelet Count 242 x10^3/uL (140-400) Neutrophils (%) (Auto) 91 % (31-73) Lymphocytes (%) (Auto) 7 % (24-48) Monocytes (%) (Auto) 2 % (0-9) Eosinophils (%) (Auto) 0 % (0-3) Basophils (%) (Auto) 1 % (0-3) Neutrophils # (Auto) 10.7 x10^3uL (1.8-7.7) Lymphocytes # (Auto) 0.8 x10^3/uL (1.0-4.8) Monocytes # (Auto) 0.3 x10^3/uL (0.0-1.1) Eosinophils # (Auto) 0.0 x10^3/uL (0.0-0.7) Basophils # (Auto) 0.1 x10^3/uL (0.0-0.2) Sodium Level 132 mmol/L (136-145) Potassium Level 3.3 mmol/L (3.5-5.1) Chloride Level 92 mmol/L (98-107) Carbon Dioxide Level 31 mmol/L (21-32) Anion Gap 9 (6-14) Blood Urea Nitrogen 22 mg/dL (8-26) Creatinine 1.4 mg/dL (0.7-1.3) Estimated GFR (Cockcroft-Gault) 51.4 BUN/Creatinine Ratio 16 (6-20) Glucose Level 131 mg/dL (70-99) Calcium Level 8.3 mg/dL (8.5-10.1) Iron Level 16 ug/dL (65-175) Total Iron Binding Capacity 363 ug/dL (250-450) Iron Saturation 4 % (15-34) Total Bilirubin 2.2 mg/dL (0.2-1.0) Aspartate Amino Transf (AST/SGOT) 62 U/L (15-37) Alanine Aminotransferase (ALT/SGPT) 78 U/L (16-63) Alkaline Phosphatase 81 U/L (46-116) Total Protein 6.5 g/dL (6.4-8.2) Albumin 2.8 g/dL (3.4-5.0) Albumin/Globulin Ratio 0.8 (1.0-1.7) Allergies: Coded Allergies: lisinopril (Verified Allergy, Severe, Swelling, 01/27/17) ANGIOEDEMA Medications: Current Medications Medications (Trade) Dose Ordered Sig/Debbie Route PRN Reason Start Time Stop Time Status Last Admin Dose Admin Aspirin (Ecotrin) 81 mg DAILYWBKFT PO 09/11/18 08:00 09/11/18 08:58 Potassium Chloride (Klor-Con) 40 meq 1X ONCE PO 09/10/18 15:00 09/10/18 15:01 DC 09/10/18 15:11 Pantoprazole Sodium (PROTONIX VIAL for IV PUSH) 40 mg BID IVP 09/10/18 21:00 09/11/18 08:58 Diltiazem HCl (Cardizem) 60 mg 1X ONCE PO 09/11/18 11:00 09/11/18 11:01 DC 09/11/18 11:17 Potassium Chloride (Klor-Con) 40 meq 1X ONCE PO 09/11/18 11:00 09/11/18 11:01 DC 09/11/18 11:17 Imaging: Imaging: CXR Impression: Diffuse reticular opacities likely chronic pulmonary fibrosis. Comparison to an old chest x-ray may be helpful. Echo <Conclusion> The left ventricle is normal size. Left ventricle systolic function is low normal. The Ejection Fraction is estimated at 50%. Septal motion consistent with conduction abnormality. There is no significant aortic valvular stenosis. Doppler and Color Flow revealed no significant aortic regurgitation. Doppler and Color-flow revealed mild to moderate mitral regurgitation. Doppler and Color Flow revealed mild tricuspid regurgitation. There is moderate pulmonary hypertension. The PA pressure was estimated at 40 mmHg. PE: GEN: NAD HEENT: Atraumatic, PERRL LUNGS: diminished anteriorly HEART: irregular ABD: NABS, S/ND/NT EXTREMITY: No edema SKIN: No rashes NEURO/PSYCH: A & O 3, distracted by tv A/P: A/P: Pruritus A Fib RVR ALLI - borderline microcytic anemia here in 2017, worse now, transfusing ?GERD - told to take Mylanta after 'scope at age 22 CRC screen - none Abnormal LFTs, coagulopathy Cholelithiasis, hepatic steatosis Hep C H/o alcohol abuse - now sober -- Agree w/ PPI - can change to PO since eating. Add iron. Would benefit from 'scopes - will review timing w/ Dr. Esteban. ?additional liver imaging JASIEL WALSH Sep 11, 2018 14:51
[2018-09-11] MEDS: FERROUS SULFATE ORAL 300 MG/5 ML SOLUTION. PO SCH (17:47)
[2018-09-12 03:55] VITALS: BP 132/87
[2018-09-12 05:07] LABS: BASO # 0.1 x10^3/uL (0.0-0.2); BASO % 1 % (0-3); EOS # 0.1 x10^3/uL (0.0-0.7); EOS % 1 % (0-3); HEMATOCRIT 26.8 % (39.0-53.0); HEMOGLOBIN 8.3 g/dL (13.0-17.5); LYMPH # 1.1 x10^3/uL (1.0-4.8); LYMPH % 13 % (24-48); MEAN CORPUSCULAR HEMOGLOBIN 20 pg (25-35); MEAN CORPUSCULAR HGB CONC 31 g/dL (31-37); MEAN CORPUSCULAR VOLUME 65 fL (79-100); MONO # 0.4 x10^3/uL (0.0-1.1); MONO % 5 % (0-9); NEUT # 6.9 x10^3uL (1.8-7.7); NEUT % 81 % (31-73); PLATELET COUNT 231 x10^3/uL (140-400); RED BLOOD COUNT 4.12 x10^6/uL (4.30-5.70); RED CELL DISTRIBUTION WIDTH 24.7 % (11.5-14.5); WHITE BLOOD COUNT 8.6 x10^3/uL (4.0-11.0)
[2018-09-12] MEDS: hydrOXYzine PAMOATE 25 MG CAPSULE PO PRN (05:47)
[2018-09-12 07:27] VITALS: BP 128/97
[2018-09-12] MEDS: diphenhydrAMINE HCL 25 MG CAPSULE PO PRN (08:06)
[2018-09-12] MEDS: FERROUS SULFATE ORAL 300 MG/5 ML SOLUTION. PO SCH ×2 (08:12→17:44)
[2018-09-12] MEDS: ASPIRIN ENTERIC COATED 81 MG TABLET.DR. PO SCH (08:14)
[2018-09-12] MEDS: PANTOPRAZOLE IV PUSH 40 MG VIAL. IVP SCH (08:15)
--- NOTE | 2018-09-12 08:15 | PDOC ---
PROGRESS NOTES Chief Complaint Chief Complaint AFIB with RVR; currently on Cardizem drip Generalized pruritus with no evidence of skin lesions History of essential Hypertension patient not taking medication at the present time. electrolyte disturbances with severe hypokalemia Microcytic anemia, iron deficiency? GI losses Tobacco abuse greater than 50 pack year history of smoking, counseling done less than 10 minutes. Hep C antibody positive History of Present Illness History of Present Illness Admitted with Afib with RVR, found with large transaminitis and elevated cr. Hep C antibody positive. Required 1 u PRBC 09/11/18. Patient laying in bed in no apparent distress. The patient denies any dyspnea no chest pain or palpitations have been reported. 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 Plan: continue with rate control will consult GI will transfuse one unti of prbcs Vitals Vitals Vital Signs Date Time Temp Pulse Resp B/P (MAP) Pulse Ox O2 Delivery O2 Flow Rate FiO2 09/12/18 07:27 97.9 112 24 128/97 (107) 94 Room Air 97.9 Physical Exam General: Alert, Oriented X3, Cooperative, No acute distress Heart: Other (IRR; tele AFIB- rate 85-110) Lungs: Clear Abdomen: Soft, No tenderness Extremities: No edema, Normal pulses Skin: No breakdown, No significant lesion Labs LABS Laboratory Tests Test 09/12/18 04:30 White Blood Count 8.6 x10^3/uL (4.0-11.0) Red Blood Count 4.12 x10^6/uL (4.30-5.70) Hemoglobin 8.3 g/dL (13.0-17.5) Hematocrit 26.8 % (39.0-53.0) Mean Corpuscular Volume 65 fL (79-100) Mean Corpuscular Hemoglobin 20 pg (25-35) Mean Corpuscular Hemoglobin Concent 31 g/dL (31-37) Red Cell Distribution Width 24.7 % (11.5-14.5) Platelet Count 231 x10^3/uL (140-400) Neutrophils (%) (Auto) 81 % (31-73) Lymphocytes (%) (Auto) 13 % (24-48) Monocytes (%) (Auto) 5 % (0-9) Eosinophils (%) (Auto) 1 % (0-3) Basophils (%) (Auto) 1 % (0-3) Neutrophils # (Auto) 6.9 x10^3uL (1.8-7.7) Lymphocytes # (Auto) 1.1 x10^3/uL (1.0-4.8) Monocytes # (Auto) 0.4 x10^3/uL (0.0-1.1) Eosinophils # (Auto) 0.1 x10^3/uL (0.0-0.7) Basophils # (Auto) 0.1 x10^3/uL (0.0-0.2) Assessment and Plan Assessmemt and Plan Problems Medical Problems: (1) Anemia Status: Acute (2) Hypokalemia Status: Acute (3) Hypomagnesemia Status: Acute Comment Review of Relevant I have reviewed the following items daysi (where applicable) has been applied. Labs Laboratory Tests Test 09/10/18 09:00 09/10/18 09:55 09/11/18 04:25 09/12/18 04:30 Urine Opiates Screen Neg (NEG) Urine Methadone Screen Neg (NEG) Urine Barbiturates Neg (NEG) Urine Phencyclidine Screen Neg (NEG) Urine Amphetamine/Methamphetamine Neg (NEG) Urine Benzodiazepines Screen Neg (NEG) Urine Cocaine Screen Neg (NEG) Urine Cannabinoids Screen Neg (NEG) Urine Ethyl Alcohol Neg (NEG) Sodium Level 134 mmol/L (136-145) 132 mmol/L (136-145) Potassium Level 2.6 mmol/L (3.5-5.1) 3.3 mmol/L (3.5-5.1) Chloride Level 90 mmol/L (98-107) 92 mmol/L (98-107) Carbon Dioxide Level 35 mmol/L (21-32) 31 mmol/L (21-32) Anion Gap 9 (6-14) 9 (6-14) Blood Urea Nitrogen 24 mg/dL (8-26) 22 mg/dL (8-26) Creatinine 1.3 mg/dL (0.7-1.3) 1.4 mg/dL (0.7-1.3) Estimated GFR (Cockcroft-Gault) 55.9 51.4 Glucose Level 116 mg/dL (70-99) 131 mg/dL (70-99) Calcium Level 8.2 mg/dL (8.5-10.1) 8.3 mg/dL (8.5-10.1) Magnesium Level 2.0 mg/dL (1.8-2.4) Troponin I Quantitative 0.040 ng/mL (0.000-0.055) Thyroid Stimulating Hormone (TSH) 0.932 uIU/mL (0.358-3.74) White Blood Count 11.9 x10^3/uL (4.0-11.0) 8.6 x10^3/uL (4.0-11.0) Red Blood Count 3.68 x10^6/uL (4.30-5.70) 4.12 x10^6/uL (4.30-5.70) Hemoglobin 6.8 g/dL (13.0-17.5) 8.3 g/dL (13.0-17.5) Hematocrit 22.5 % (39.0-53.0) 26.8 % (39.0-53.0) Mean Corpuscular Volume 61 fL (79-100) 65 fL (79-100) Mean Corpuscular Hemoglobin 19 pg (25-35) 20 pg (25-35) Mean Corpuscular Hemoglobin Concent 30 g/dL (31-37) 31 g/dL (31-37) Red Cell Distribution Width 21.4 % (11.5-14.5) 24.7 % (11.5-14.5) Platelet Count 242 x10^3/uL (140-400) 231 x10^3/uL (140-400) Neutrophils (%) (Auto) 91 % (31-73) 81 % (31-73) Lymphocytes (%) (Auto) 7 % (24-48) 13 % (24-48) Monocytes (%) (Auto) 2 % (0-9) 5 % (0-9) Eosinophils (%) (Auto) 0 % (0-3) 1 % (0-3) Basophils (%) (Auto) 1 % (0-3) 1 % (0-3) Neutrophils # (Auto) 10.7 x10^3uL (1.8-7.7) 6.9 x10^3uL (1.8-7.7) Lymphocytes # (Auto) 0.8 x10^3/uL (1.0-4.8) 1.1 x10^3/uL (1.0-4.8) Monocytes # (Auto) 0.3 x10^3/uL (0.0-1.1) 0.4 x10^3/uL (0.0-1.1) Eosinophils # (Auto) 0.0 x10^3/uL (0.0-0.7) 0.1 x10^3/uL (0.0-0.7) Basophils # (Auto) 0.1 x10^3/uL (0.0-0.2) 0.1 x10^3/uL (0.0-0.2) BUN/Creatinine Ratio 16 (6-20) Iron Level 16 ug/dL (65-175) Total Iron Binding Capacity 363 ug/dL (250-450) Iron Saturation 4 % (15-34) Total Bilirubin 2.2 mg/dL (0.2-1.0) Aspartate Amino Transf (AST/SGOT) 62 U/L (15-37) Alanine Aminotransferase (ALT/SGPT) 78 U/L (16-63) Alkaline Phosphatase 81 U/L (46-116) Total Protein 6.5 g/dL (6.4-8.2) Albumin 2.8 g/dL (3.4-5.0) Albumin/Globulin Ratio 0.8 (1.0-1.7) Hepatitis C IgG Antibody Reactive (Nonreactive) Laboratory Tests Test 09/12/18 04:30 White Blood Count 8.6 x10^3/uL (4.0-11.0) Red Blood Count 4.12 x10^6/uL (4.30-5.70) Hemoglobin 8.3 g/dL (13.0-17.5) Hematocrit 26.8 % (39.0-53.0) Mean Corpuscular Volume 65 fL (79-100) Mean Corpuscular Hemoglobin 20 pg (25-35) Mean Corpuscular Hemoglobin Concent 31 g/dL (31-37) Red Cell Distribution Width 24.7 % (11.5-14.5) Platelet Count 231 x10^3/uL (140-400) Neutrophils (%) (Auto) 81 % (31-73) Lymphocytes (%) (Auto) 13 % (24-48) Monocytes (%) (Auto) 5 % (0-9) Eosinophils (%) (Auto) 1 % (0-3) Basophils (%) (Auto) 1 % (0-3) Neutrophils # (Auto) 6.9 x10^3uL (1.8-7.7) Lymphocytes # (Auto) 1.1 x10^3/uL (1.0-4.8) Monocytes # (Auto) 0.4 x10^3/uL (0.0-1.1) Eosinophils # (Auto) 0.1 x10^3/uL (0.0-0.7) Basophils # (Auto) 0.1 x10^3/uL (0.0-0.2) Medications Current Medications Aspirin (SafetyPay Aspirin) 325 mg 1X ONCE PO Last administered on 09/10/18at 04:13 ; Start 09/10/18 at 04:00; Stop 09/10/18 at 04:01; Status DC Sodium Chloride 1,000 ml @ 1,000 mls/hr 1X ONCE IV Last administered on at 04:15; Start 09/10/18 at 04:00; Stop 09/10/18 at 04:59; Status DC Diltiazem HCl (Cardizem Iv Push) 20 mg 1X ONCE IVP Last administered on at 04:14; Start 09/10/18 at 04:30; Stop 09/10/18 at 04:31; Status DC Diltiazem HCl 125 mg/Dextrose 125 ml @ 5 mls/hr 1X ONCE IV Last administered on 09/10/18at 04:15; Start 09/10/18 at 04:30; Stop 09/11/18 at 05:29; Status DC Ondansetron HCl (Zofran) 4 mg PRN Q8HRS PRN IV NAUSEA/VOMITING 1ST CHOICE; Start 09/10/18 at 04:15; Stop 09/11/18 at 04:15; Status DC Potassium Chloride (Klor-Con) 40 meq 1X ONCE PO Last administered on 09/10/18at 04:49; Start 09/10/18 at 05:00; Stop 09/10/18 at 05:01; Status DC Magnesium Sulfate 50 ml @ 25 mls/hr 1X ONCE IV Last administered on 09/10/18at 04:50; Start 09/10/18 at 05:00; Stop 09/10/18 at 06:59; Status DC Diphenhydramine HCl (Benadryl) 25 mg PRN Q6HRS PRN PO ITCHING, 1ST CHOICE Last administered on 09/12/18 08:06; Start 09/10/18 at 07:45 Aspirin (Ecotrin) 81 mg DAILYWBKFT PO Last administered on 09/11/18 08:58; Start 09/11/18 at 08:00 Diltiazem HCl (Cardizem 24hr Cd) 240 mg DAILY PO Last administered on 09/11/18 08:58; Start 09/10/18 at 12:00; Stop 09/11/18 at 10:07; Status DC Potassium Chloride (Klor-Con) 40 meq 1X ONCE PO Last administered on 09/10/18 11:33; Start 09/10/18 at 11:15; Stop 09/10/18 at 11:16; Status DC Potassium Chloride (Klor-Con) 40 meq 1X ONCE PO Last administered on 09/10/18 15:11; Start 09/10/18 at 15:00; Stop 09/10/18 at 15:01; Status DC Hydroxyzine HCl (Atarax) 25 mg PRN Q8HRS PRN PO ITCHING; Start 09/10/18 at 12:15 ; Stop 09/10/18 at 12:22; Status DC Calcium Carbonate/ Glycine (Tums) 500 mg PRN Q2HRS PRN PO INDIGESTION Last administered on 09/11/18 08:57; Start 09/10/18 at 12:15 Hydroxyzine Pamoate (Vistaril) 25 mg PRN Q8HRS PRN PO ITCHING, 2ND CHOICE Last administered on 09/12/18 05:47; Start 09/10/18 at 12:22 Pantoprazole Sodium (PROTONIX VIAL for IV PUSH) 40 mg BID IVP Last administered on 09/11/18 21:29; Start 09/10/18 at 21:00 Multi-Ingredient Mouthwash/Gargle (Gi Cocktail) 20 ml PRN QID PRN PO CHEST PAIN Last administered on 09/10/18 15:12; Start 09/10/18 at 14:15 Diltiazem HCl (Cardizem) 60 mg 1X ONCE PO Last administered on 4/4/19at 11:17 ; Start 09/11/18 at 11:00; Stop 09/11/18 at 11:01; Status DC Diltiazem HCl (Cardizem 24hr Cd) 300 mg DAILY PO ; Start 09/12/18 at 09:00 Potassium Chloride (Klor-Con) 40 meq 1X ONCE PO Last administered on 09/11/18at 11:17; Start 09/11/18 at 11:00; Stop 09/11/18 at 11:01; Status DC Ferrous Sulfate (Iron Oral Solution) 300 mg BIDWMEALS PO Last administered on at 17:47; Start 09/11/18 at 17:00 Active Scripts Active Enoxaparin Sodium 40 Mg/0.4 Ml Disp.syrin 40 Mg SQ DAILY16 20 Days Vitamin B-1 (Thiamine Mononitrate) 100 Mg Tablet 100 Mg PO DAILY Metoprolol Tartrate 25 Mg Tablet 25 Mg PO BID Hydrocodone-Apap 7.5-325 (Hydrocodone Bit/Acetaminophen) 1 Each Tablet 1 Tab PO PRN Q3HRS PRN Folic Acid 1 Mg Tablet 1 Mg PO DAILY Vitals/I & O Vital Sign - Last 24 Hours 09/11/18 09/11/18 09/11/18 09/11/18 08:58 11:00 11:17 11:47 Temp 97.7 98.0 97.7 98.0 Pulse 121 111 109 98 Resp 22 B/P (MAP) 137/69 126/68 (87) 126/68 120/73 Pulse Ox 97 09/11/18 09/11/18 09/11/18 09/11/18 12:03 13:01 14:01 15:00 Temp 97.5 98.0 97.7 98.0 97.5 98.0 97.7 98.0 Pulse 100 85 83 83 Resp 22 20 20 20 B/P (MAP) 116/79 97/66 108/67 102/66 (78) Pulse Ox 91 09/11/18 09/11/18 09/11/18 09/11/18 15:38 19:49 20:00 22:49 Temp 98.0 97.9 97.3 98.0 97.9 97.3 Pulse 83 89 84 Resp 20 24 22 B/P (MAP) 102/66 109/78 (88) 131/83 (99) Pulse Ox 96 95 O2 Delivery Room Air Room Air Room Air 09/12/18 09/12/18 03:55 07:27 Temp 97.6 97.9 97.6 97.9 Pulse 94 112 Resp 22 24 B/P (MAP) 132/87 (102) 128/97 (107) Pulse Ox 94 94 O2 Delivery Room Air Room Air Intake and Output 09/11/18 09/11/18 09/12/18 15:00 23:00 07:00 Intake Total 400 ml 240 ml 240 ml Output Total 450 ml Balance 400 ml -210 ml 240 ml Images Echo - The left ventricle is normal size. Left ventricle systolic function is low normal. The Ejection Fraction is estimated at 50%. Septal motion consistent with conduction abnormality. There is no significant aortic valvular stenosis. Doppler and Color Flow revealed no significant aortic regurgitation. Doppler and Color-flow revealed mild to moderate mitral regurgitation. Doppler and Color Flow revealed mild tricuspid regurgitation. There is moderate pulmonary hypertension. The PA pressure was estimated at 40 mmHg. REESE HENAO MD Sep 12, 2018 08:15
[2018-09-12 08:53] LABS: ALBUMIN/GLOBULIN RATIO 0.8 (1.0-1.7); CALCIUM 8.6 mg/dL (8.5-10.1); TOTAL PROTEIN 6.9 g/dL (6.4-8.2)
[2018-09-12 08:54] LABS: CREATININE 1.4 mg/dL (0.7-1.3); GFR 51.4; TOTAL BILIRUBIN 2.2 mg/dL (0.2-1.0)
--- NOTE | 2018-09-12 09:09 | PDOC ---
CARDIO Progress Notes Date and Time Date of Service 09/12/2018 Time of Evaluation 0850 Subjective Subjective: No Chest Pain, No shortness of breath, No Palpitations Vitals Vitals Vital Signs Date Time Temp Pulse Resp B/P (MAP) Pulse Ox O2 Delivery O2 Flow Rate FiO2 09/12/18 08:14 111 128/97 09/12/18 07:27 97.9 24 94 Room Air 97.9 Weight Weight [ ] Input and Output Intake and Output Intake and Output 09/12/18 07:00 Intake Total 880 ml Output Total 450 ml Balance 430 ml Intake Oral 880 ml Output Urine Total 450 ml # Voids 3 Laboratory Labs Laboratory Tests Test 09/12/18 04:30 White Blood Count 8.6 x10^3/uL (4.0-11.0) Red Blood Count 4.12 x10^6/uL (4.30-5.70) Hemoglobin 8.3 g/dL (13.0-17.5) Hematocrit 26.8 % (39.0-53.0) Mean Corpuscular Volume 65 fL (79-100) Mean Corpuscular Hemoglobin 20 pg (25-35) Mean Corpuscular Hemoglobin Concent 31 g/dL (31-37) Red Cell Distribution Width 24.7 % (11.5-14.5) Platelet Count 231 x10^3/uL (140-400) Neutrophils (%) (Auto) 81 % (31-73) Lymphocytes (%) (Auto) 13 % (24-48) Monocytes (%) (Auto) 5 % (0-9) Eosinophils (%) (Auto) 1 % (0-3) Basophils (%) (Auto) 1 % (0-3) Neutrophils # (Auto) 6.9 x10^3uL (1.8-7.7) Lymphocytes # (Auto) 1.1 x10^3/uL (1.0-4.8) Monocytes # (Auto) 0.4 x10^3/uL (0.0-1.1) Eosinophils # (Auto) 0.1 x10^3/uL (0.0-0.7) Basophils # (Auto) 0.1 x10^3/uL (0.0-0.2) Sodium Level 130 mmol/L (136-145) Potassium Level 3.0 mmol/L (3.5-5.1) Chloride Level 93 mmol/L (98-107) Carbon Dioxide Level 27 mmol/L (21-32) Anion Gap 10 (6-14) Blood Urea Nitrogen 17 mg/dL (8-26) Creatinine 1.4 mg/dL (0.7-1.3) Estimated GFR (Cockcroft-Gault) 51.4 BUN/Creatinine Ratio 12 (6-20) Glucose Level 150 mg/dL (70-99) Calcium Level 8.6 mg/dL (8.5-10.1) Total Bilirubin 2.2 mg/dL (0.2-1.0) Aspartate Amino Transf (AST/SGOT) 52 U/L (15-37) Alanine Aminotransferase (ALT/SGPT) 471 U/L (16-63) Alkaline Phosphatase 73 U/L (46-116) Total Protein 6.9 g/dL (6.4-8.2) Albumin 3.0 g/dL (3.4-5.0) Albumin/Globulin Ratio 0.8 (1.0-1.7) Physical Exam HEENT: Neck Supple W Full Motion Chest: Symmetric LUNGS: Clear to Auscultation Heart: S1S2, irregularly irregular (AFIB; rate intermittently elevated) Abdomen: Soft N/T Extremities: No Edema, No Calf Tenderness Neurology: alert, oriented, follow commands Assessment Assessment 1. AFIB with RVR: recurrent RVR 2. Hypertension; controlled 3. Hypokalemia 4. Anemia; hgb 8.3 post transfusion 5. Elevated LFTs, coagulopathy 1.6 with past ETOH use and Hep C 6. Suspect COPD with continued tobaccoism: moderate pulmonary hypertension 7. CKD#? Recommendations Replace K, monitor lytes Dig x1. BP normotensive. Will lower cardizem and introduce metoprolol. ASA for stroke prophylaxis, not a candidate for correction anticoagulation with notable liver disease, anemia and coagulopathy Consider further ischemic workup on an outpatient basis. Smoking cessation Check UA MARY JANE [employer]QU[employer]MENT REPA[employer]ER Sep 12, 2018 09:09
[2018-09-12] MEDS ORDERED: MINERAL OIL/PETROLATUM TOPICAL CREAM 113GM JAR. TP PRN (09:15)
[2018-09-12] MEDS ORDERED: DIGOXIN IV 500 MCG/2 ML AMPUL. IV ONE (09:15)
[2018-09-12] MEDS ORDERED: HYDROCORTISONE 1% TOPICAL OINTMENT 30GM TUBE. TP PRN (09:15)
[2018-09-12] MEDS: METOPROLOL TART IMMED RELEASE 25 MG TABLET. PO SCH ×2 (10:06→21:06)
[2018-09-12] MEDS: POTASSIUM CHLORIDE 20 MEQ TABLET.ER. PO SCH (10:06)
[2018-09-12 10:40] VITALS: BP 144/82
--- NOTE | 2018-09-12 11:13 | PDOC ---
Subjective: Subjective: I asked if he was doing okay and he said "I guess not because they keep telling me things are wrong with me" and puts his head back under the sheet. Objective: Vital Signs: Vital Signs Date Time Temp Pulse Resp B/P (MAP) Pulse Ox O2 Delivery O2 Flow Rate FiO2 09/12/18 10:40 97.4 96 22 144/82 (102) 97 Room Air 97.4 Labs: Laboratory Tests Test 09/12/18 04:30 White Blood Count 8.6 x10^3/uL Red Blood Count 4.12 x10^6/uL Hemoglobin 8.3 g/dL Hematocrit 26.8 % Mean Corpuscular Volume 65 fL Mean Corpuscular Hemoglobin 20 pg Mean Corpuscular Hemoglobin Concent 31 g/dL Red Cell Distribution Width 24.7 % Platelet Count 231 x10^3/uL Neutrophils (%) (Auto) 81 % Lymphocytes (%) (Auto) 13 % Monocytes (%) (Auto) 5 % Eosinophils (%) (Auto) 1 % Basophils (%) (Auto) 1 % Neutrophils # (Auto) 6.9 x10^3uL Lymphocytes # (Auto) 1.1 x10^3/uL Monocytes # (Auto) 0.4 x10^3/uL Eosinophils # (Auto) 0.1 x10^3/uL Basophils # (Auto) 0.1 x10^3/uL Sodium Level 130 mmol/L Potassium Level 3.0 mmol/L Chloride Level 93 mmol/L Carbon Dioxide Level 27 mmol/L Anion Gap 10 Blood Urea Nitrogen 17 mg/dL Creatinine 1.4 mg/dL Estimated GFR (Cockcroft-Gault) 51.4 BUN/Creatinine Ratio 12 Glucose Level 150 mg/dL Calcium Level 8.6 mg/dL Magnesium Level 2.0 mg/dL Total Bilirubin 2.2 mg/dL Aspartate Amino Transf (AST/SGOT) 52 U/L Alanine Aminotransferase (ALT/SGPT) 471 U/L Alkaline Phosphatase 73 U/L Total Protein 6.9 g/dL Albumin 3.0 g/dL Albumin/Globulin Ratio 0.8 PE: GEN: NAD LUNGS: room air HEART: irregular - on the monitor as he remains under the sheets NEURO/PSYCH: A & O 3 A/P: Pruritus, A Fib RVR (on ASA), NATHANIEL ALLI - no obvious bleeding, Hgb improved w/ transfusion, now on PO iron and PPI Abnormal LFTs, coagulopathy, hypoalbuminemia H/o alcohol abuse and +Hep C Ab, hepatic steatosis -- Await Hep C PCR. 'Scopes eventually - can pursue as outpt. JASIEL WALSH Sep 12, 2018 11:13
--- NOTE | 2018-09-12 14:17 | NUR ---
SS following up with discharge planning. SS met with pt and family in room and witnessed signing of living will. SS discussed home healthcare with pt. Pt agreeable to home healthcare at discharge. Pt reported having no preference of company. SS contacted home health agencies and was notified that [facility], ; fax [phone], takes [employer]. SS will await discharge orders for home healthcare and will proceed accordingly.
[2018-09-12 15:00] VITALS: BP 133/79
--- NOTE | 2018-09-12 15:00 | NUR ---
SS following up with discharge planning. SS phoned and faxed clinical to [facility], ; fax [phone]. SS will await discharge orders for home healthcare and will fax once received
[2018-09-12] MEDS: CALCIUM CARBONATE 500 MG TAB.CHEW PO PRN ×2 (16:28→16:29)
[2018-09-12 19:30] VITALS: BP 128/90
[2018-09-12 22:31] VITALS: BP 110/77
[2018-09-13 02:56] VITALS: BP 120/73
[2018-09-13 07:22] VITALS: BP 148/89
[2018-09-13] MEDS ORDERED: PANTOPRAZOLE 40 MG TABLET.DR. PO SCH (07:30)
--- NOTE | 2018-09-13 07:59 | PDOC ---
PROGRESS NOTES Chief Complaint Chief Complaint AFIB with RVR; currently on Cardizem drip Generalized pruritus with no evidence of skin lesions History of essential Hypertension patient not taking medication at the present time. electrolyte disturbances with severe hypokalemia Microcytic anemia, iron deficiency? GI losses Tobacco abuse greater than 50 pack year history of smoking, counseling done less than 10 minutes. Hep C antibody positive History of Present Illness History of Present Illness Admitted with Afib with RVR, found with large transaminitis and elevated cr. Hep C antibody positive. Required 1 u PRBC 09/11/18. Patient laying in bed in no apparent distress. The patient denies any dyspnea no chest pain or palpitations have been reported. Patient continues to have uncontrolled rate medications being adjusted by her internal audit consultant. Had rate down in 80s after restarting metoprolol yesterday, did get digoxin x1. K finally near normal Plan: continue with rate control - dual BB and CCB outpatient GI outpatient - f/u Hep C PCR results Home with home health for gait instability, and meds Vitals Vitals Vital Signs Date Time Temp Pulse Resp B/P (MAP) Pulse Ox O2 Delivery O2 Flow Rate FiO2 09/13/18 07:22 97.5 68 18 148/89 (108) 94 Room Air 97.5 Physical Exam General: Alert, Oriented X3, Cooperative, No acute distress Heart: Other (IRR; tele AFIB- rate 85-110) Lungs: Clear Abdomen: Soft, No tenderness Extremities: No edema, Normal pulses Skin: No breakdown, No significant lesion Assessment and Plan Assessmemt and Plan Problems Medical Problems: (1) Anemia Status: Acute (2) Hypokalemia Status: Acute (3) Hypomagnesemia Status: Acute Comment Review of Relevant I have reviewed the following items daysi (where applicable) has been applied. Labs Laboratory Tests Test 09/12/18 04:30 White Blood Count 8.6 x10^3/uL (4.0-11.0) Red Blood Count 4.12 x10^6/uL (4.30-5.70) Hemoglobin 8.3 g/dL (13.0-17.5) Hematocrit 26.8 % (39.0-53.0) Mean Corpuscular Volume 65 fL (79-100) Mean Corpuscular Hemoglobin 20 pg (25-35) Mean Corpuscular Hemoglobin Concent 31 g/dL (31-37) Red Cell Distribution Width 24.7 % (11.5-14.5) Platelet Count 231 x10^3/uL (140-400) Neutrophils (%) (Auto) 81 % (31-73) Lymphocytes (%) (Auto) 13 % (24-48) Monocytes (%) (Auto) 5 % (0-9) Eosinophils (%) (Auto) 1 % (0-3) Basophils (%) (Auto) 1 % (0-3) Neutrophils # (Auto) 6.9 x10^3uL (1.8-7.7) Lymphocytes # (Auto) 1.1 x10^3/uL (1.0-4.8) Monocytes # (Auto) 0.4 x10^3/uL (0.0-1.1) Eosinophils # (Auto) 0.1 x10^3/uL (0.0-0.7) Basophils # (Auto) 0.1 x10^3/uL (0.0-0.2) Sodium Level 130 mmol/L (136-145) Potassium Level 3.0 mmol/L (3.5-5.1) Chloride Level 93 mmol/L (98-107) Carbon Dioxide Level 27 mmol/L (21-32) Anion Gap 10 (6-14) Blood Urea Nitrogen 17 mg/dL (8-26) Creatinine 1.4 mg/dL (0.7-1.3) Estimated GFR (Cockcroft-Gault) 51.4 BUN/Creatinine Ratio 12 (6-20) Glucose Level 150 mg/dL (70-99) Calcium Level 8.6 mg/dL (8.5-10.1) Magnesium Level 2.0 mg/dL (1.8-2.4) Total Bilirubin 2.2 mg/dL (0.2-1.0) Aspartate Amino Transf (AST/SGOT) 52 U/L (15-37) Alanine Aminotransferase (ALT/SGPT) 471 U/L (16-63) Alkaline Phosphatase 73 U/L (46-116) Total Protein 6.9 g/dL (6.4-8.2) Albumin 3.0 g/dL (3.4-5.0) Albumin/Globulin Ratio 0.8 (1.0-1.7) Medications Current Medications Aspirin (Luc Aspirin) 325 mg 1X ONCE PO Last administered on 4/3/19at 04:13 ; Start 09/10/18 at 04:00; Stop 09/10/18 at 04:01; Status DC Sodium Chloride 1,000 ml @ 1,000 mls/hr 1X ONCE IV Last administered on at 04:15; Start 09/10/18 at 04:00; Stop 09/10/18 at 04:59; Status DC Diltiazem HCl (Cardizem Iv Push) 20 mg 1X ONCE IVP Last administered on at 04:14; Start 09/10/18 at 04:30; Stop 09/10/18 at 04:31; Status DC Diltiazem HCl 125 mg/Dextrose 125 ml @ 5 mls/hr 1X ONCE IV Last administered on 09/10/18at 04:15; Start 09/10/18 at 04:30; Stop 09/11/18 at 05:29; Status DC Ondansetron HCl (Zofran) 4 mg PRN Q8HRS PRN IV NAUSEA/VOMITING 1ST CHOICE; Start 09/10/18 at 04:15; Stop 09/11/18 at 04:15; Status DC Potassium Chloride (Klor-Con) 40 meq 1X ONCE PO Last administered on 09/10/18at 04:49; Start 09/10/18 at 05:00; Stop 09/10/18 at 05:01; Status DC Magnesium Sulfate 50 ml @ 25 mls/hr 1X ONCE IV Last administered on 09/10/18at 04:50; Start 09/10/18 at 05:00; Stop 09/10/18 at 06:59; Status DC Diphenhydramine HCl (Benadryl) 25 mg PRN Q6HRS PRN PO ITCHING, 1ST CHOICE Last administered on 09/12/18 08:06; Start 09/10/18 at 07:45 Aspirin (Ecotrin) 81 mg DAILYWBKFT PO Last administered on 09/12/18at 08:14; Start 09/11/18 at 08:00 Diltiazem HCl (Cardizem 24hr Cd) 240 mg DAILY PO Last administered on 09/11/18at 08:58; Start 09/10/18 at 12:00; Stop 09/11/18 at 10:07; Status DC Potassium Chloride (Klor-Con) 40 meq 1X ONCE PO Last administered on 09/10/18 11:33; Start 09/10/18 at 11:15; Stop 09/10/18 at 11:16; Status DC Potassium Chloride (Klor-Con) 40 meq 1X ONCE PO Last administered on 09/10/18 15:11; Start 09/10/18 at 15:00; Stop 09/10/18 at 15:01; Status DC Hydroxyzine HCl (Atarax) 25 mg PRN Q8HRS PRN PO ITCHING; Start 09/10/18 at 12:15 ; Stop 09/10/18 at 12:22; Status DC Calcium Carbonate/ Glycine (Tums) 500 mg PRN Q2HRS PRN PO INDIGESTION Last administered on 09/12/18 16:29; Start 09/10/18 at 12:15 Hydroxyzine Pamoate (Vistaril) 25 mg PRN Q8HRS PRN PO ITCHING, 2ND CHOICE Last administered on 09/12/18 05:47; Start 09/10/18 at 12:22 Pantoprazole Sodium (PROTONIX VIAL for IV PUSH) 40 mg BID IVP Last administered on 09/12/18 08:15; Start 09/10/18 at 21:00; Stop 09/12/18 at 11:12; Status DC Multi-Ingredient Mouthwash/Gargle (Gi Cocktail) 20 ml PRN QID PRN PO CHEST PAIN Last administered on 09/10/18 15:12; Start 09/10/18 at 14:15 Diltiazem HCl (Cardizem) 60 mg 1X ONCE PO Last administered on 09/11/18 11:17 ; Start 09/11/18 at 11:00; Stop 09/11/18 at 11:01; Status DC Diltiazem HCl (Cardizem 24hr Cd) 300 mg DAILY PO Last administered on 09/12/18 08:14; Start 09/12/18 at 09:00; Stop 09/12/18 at 09:04; Status DC Potassium Chloride (Klor-Con) 40 meq 1X ONCE PO Last administered on 09/11/18 11:17; Start 09/11/18 at 11:00; Stop 09/11/18 at 11:01; Status DC Ferrous Sulfate (Iron Oral Solution) 300 mg BIDWMEALS PO Last administered on at 17:44; Start 09/11/18 at 17:00 Potassium Chloride (Klor-Con) 40 meq DAILY PO Last administered on 09/12/18at 10: 06; Start 09/12/18 at 10:00 Digoxin (Lanoxin) 500 mcg 1X ONCE IV Last administered on 09/12/18at 10:08; Start 09/12/18 at 09:15; Stop 09/12/18 at 09:16; Status DC Metoprolol Tartrate (Lopressor) 25 mg BID PO Last administered on 09/12/18at 21: 06; Start 09/12/18 at 10:00 Diltiazem HCl (Cardizem 24hr Cd) 240 mg DAILY PO ; Start 09/13/18 at 09:00 Multi-Ingred Cream/Lotion/Oil/ Oint (Hydrocerin Cream) 1 suad PRN Q1HR PRN TP DRY SKIN / SCALING; Start 09/12/18 at 09:15 Hydrocortisone (Cortaid) 1 suad PRN DAILY PRN TP itching; Start 09/12/18 at 09:15 Pantoprazole Sodium (Protonix) 40 mg DAILYAC PO ; Start 09/13/18 at 07:30 Active Scripts Active Enoxaparin Sodium 40 Mg/0.4 Ml Disp.syrin 40 Mg SQ DAILY16 20 Days Vitamin B-1 (Thiamine Mononitrate) 100 Mg Tablet 100 Mg PO DAILY Metoprolol Tartrate 25 Mg Tablet 25 Mg PO BID Hydrocodone-Apap 7.5-325 (Hydrocodone Bit/Acetaminophen) 1 Each Tablet 1 Tab PO PRN Q3HRS PRN Folic Acid 1 Mg Tablet 1 Mg PO DAILY Vitals/I & O Vital Sign - Last 24 Hours 09/12/18 09/12/18 09/12/18 09/12/18 08:00 08:14 10:06 10:08 Pulse 111 111 111 B/P (MAP) 128/97 128/97 128/97 O2 Delivery Room Air 09/12/18 09/12/18 09/12/18 09/12/18 10:40 15:00 19:30 19:50 Temp 97.4 97.9 98.1 97.4 97.9 98.1 Pulse 96 85 77 Resp 22 20 20 B/P (MAP) 144/82 (102) 133/79 (97) 128/90 (103) Pulse Ox 97 98 95 O2 Delivery Room Air Room Air Room Air Room Air 09/12/18 09/12/18 09/13/18 09/13/18 21:06 22:31 02:56 07:22 Temp 97.7 97.5 97.5 97.7 97.5 97.5 Pulse 77 74 72 68 Resp 18 18 18 B/P (MAP) 103/73 110/77 (88) 120/73 (89) 148/89 (108) Pulse Ox 98 94 94 O2 Delivery Room Air Room Air Room Air Intake and Output 09/12/18 09/12/18 09/13/18 15:00 23:00 07:00 Intake Total 60 ml 680 ml Output Total 400 ml Balance 60 ml -400 ml 680 ml REESE HENAO MD Sep 13, 2018 07:59
[2018-09-13 08:19] LABS: BILIRUBIN,URINE NEGATIVE (NEG); CLARITY,URINE CLEAR; COLOR,URINE YELLOW; NITRITE,URINE NEGATIVE (NEG); PROTEIN,URINE NEGATIVE (NEG-TRACE)
[2018-09-13] MEDS: ASPIRIN ENTERIC COATED 81 MG TABLET.DR. PO SCH (08:22)
[2018-09-13] MEDS: METOPROLOL TART IMMED RELEASE 25 MG TABLET. PO SCH (08:23)
[2018-09-13 08:24] VITALS: BP 148/89
[2018-09-13] MEDS: POTASSIUM CHLORIDE 20 MEQ TABLET.ER. PO SCH (08:24)
[2018-09-13] MEDS: FERROUS SULFATE ORAL 300 MG/5 ML SOLUTION. PO SCH (08:24)
[2018-09-13 08:27] LABS: BACTERIA,URINE 0 /HPF (0-FEW); RBC,URINE 0 /HPF (0-2); WBC,URINE OCC /HPF (0-4)
[2018-09-13] MEDS: diphenhydrAMINE HCL 25 MG CAPSULE PO PRN (08:27)
[2018-09-13 09:05] LABS: BASO # 0.1 x10^3/uL (0.0-0.2); BASO % 1 % (0-3); EOS # 0.1 x10^3/uL (0.0-0.7); EOS % 2 % (0-3); HEMATOCRIT 27.9 % (39.0-53.0); HEMOGLOBIN 8.6 g/dL (13.0-17.5); LYMPH # 1.6 x10^3/uL (1.0-4.8); LYMPH % 21 % (24-48); MEAN CORPUSCULAR HEMOGLOBIN 20 pg (25-35); MEAN CORPUSCULAR HGB CONC 31 g/dL (31-37); MEAN CORPUSCULAR VOLUME 66 fL (79-100); MONO # 0.7 x10^3/uL (0.0-1.1); MONO % 9 % (0-9); NEUT # 5.1 x10^3uL (1.8-7.7); NEUT % 67 % (31-73); PLATELET COUNT 284 x10^3/uL (140-400); RED BLOOD COUNT 4.22 x10^6/uL (4.30-5.70); RED CELL DISTRIBUTION WIDTH 25.2 % (11.5-14.5); WHITE BLOOD COUNT 7.7 x10^3/uL (4.0-11.0)
[2018-09-13 09:17] LABS: ALBUMIN 3.1 g/dL (3.4-5.0); ALBUMIN/GLOBULIN RATIO 0.7 (1.0-1.7); CALCIUM 8.5 mg/dL (8.5-10.1); CREATININE 1.6 mg/dL (0.7-1.3); POTASSIUM 3.7 mmol/L (3.5-5.1); TOTAL PROTEIN 7.3 g/dL (6.4-8.2)
[2018-09-13] MEDS ORDERED: Pantoprazole PO (11:42)
[2018-09-13] MEDS ORDERED: METO25TA4 PO (11:42)
[2018-09-13] MEDS ORDERED: POTA20TA4 PO (11:42)
[2018-09-13] MEDS ORDERED: DILTIAZEM HCL PO (11:42)
[2018-09-13] MEDS ORDERED: ASPI-612 PO (11:42)
[2018-09-13] MEDS ORDERED: HYDR25CA75 PO (11:42)
--- NOTE | 2018-09-13 11:44 | SNU/HH DC ---
DISCHARGE WITH HOME HEALTH DISCHARGE INFORMATION: Discharge Date: Sep 13, 2018 Final Diagnosis: Problems Medical Problems: (1) Anemia Status: Acute (2) Hypokalemia Status: Acute (3) Hypomagnesemia Status: Acute Condition on Discharge: Stable CODE STATUS: Code Status: Full HOME HEALTH: Face to Face: I certify this patient is under my care and that I, or a nurse practitioner or physician's electrician station assistant working with me, had a face to face encounter that meets the physician face to face encounter requirements with this patient on 09/13/18. Medical Complications: HTN, Other (AFIB, CAD, Liver dz) Assisted For: Assess Cardiopulm Status, Assess & Educate Safety, Bowel/ Bladder Training, Medication Management RN For Eval/Treatment: Yes Physical Therapy For: Evalulation/Treatment Occupational Therapy For: Evaluation/Treatment KIT ASSEMBLER For: Community Resources Pt Meets Homebound Status: Extreme weakness w/ amb. POST DISCHARGE ORDERS: Activity Instructions for Disc: No restrictions, Activity as tolerated Weight Bearing Status after Di: No restrictions DIET AFTER DISCHARGE: Cardiac CHECKS AFTER DISCHARGE: Checks after discharge: Check blood press - daily FOLLOW-UP: Follow up with: Dr. Adam in 4 weeks Follow Up With: PCP 1-2 weeks TREATMENT/EQUIPMENT ORDERS: Adaptive Equipment Issued: None CERTIFICATION STATEMENT: Certification Statement: Certification Statement: Based on the above finding, I certify that this patient is confined to the home and needs intermittent intermediate care, physical therapy and/or speech therapy, or continues to need occupational therapy.~ This patient is under my care, and I have initiated the establishment of the plan of care.~ This patient will be followed by myself or a community physician who will periodically review the plan of care. Home Meds Active Scripts Potassium Chloride (KLOR-CON M20) 20 Meq Tab.er.prt, 40 MEQ PO DAILY for Hypokalemia for 30 Days, #60 TAB.SR 2 Refills Prov:REESE HENAO MD 09/13/18 [Pantoprazole] 40 [address]T.DR [place] Conflict Check, 40 MG PO DAILYAC for GERD for 30 Days, #30 2 Refills Prov:REESE HENAO MD 09/13/18 Hydroxyzine Pamoate (HYDROXYZINE PAMOATE) 25 Mg Capsule, 25 MG PO PRN Q8HRS PRN for ITCHING for 30 Days, #90 CAP 2 Refills Prov:REESE HENAO MD 09/13/18 Aspirin (ASPIRIN EC) 81 Mg Tablet.dr, 81 MG PO DAILYWBKFT for Afib for 30 Days, #30 TAB.SR 11 Refills Prov:REESE HENAO MD 09/13/18 [dilTIAZem HCL] 240 MG CAP.ER.24H No Conflict Check, 240 MG PO DAILY for AFIB for 30 Days, #30 CAP.SR 2 Refills Prov:REESE HENAO MD 09/13/18 Metoprolol Tartrate (METOPROLOL TARTRATE) 25 Mg Tablet, 25 MG PO BID for Afib for 30 Days, #60 TAB 2 Refills Prov:REESE HENAO MD 09/13/18 Thiamine Mononitrate (VITAMIN B-1) 100 Mg Tablet, 100 MG PO DAILY, #30 TAB Prov:DANIEL WOO MD 02/07/17 Hydrocodone Bit/Acetaminophen (HYDROCODONE-APAP 7.5-325 ) 1 Each Tablet, 1 TAB PO PRN Q3HRS PRN for PAIN, #20 TAB Prov:DANIEL WOO MD 02/07/17 Folic Acid (FOLIC ACID) 1 Mg Tablet, 1 MG PO DAILY, #30 TAB Prov:DANIEL WOO MD 02/07/17 Discontinued Scripts Enoxaparin Sodium (ENOXAPARIN SODIUM) 40 Mg/0.4 Ml Disp.syrin, 40 MG SQ DAILY16 for 20 Days, DIS.SYR Prov:DANIEL WOO MD 02/07/17 REESE HENAO MD Sep 13, 2018 11:44
--- NOTE | 2018-09-13 11:51 | PDOC3 ---
Discharge Summary Visit Information Date of Admission: Sep 10, 2018 Date of Discharge: Sep 13, 2018 Admitting Diagnosis: Afib with RVR, symptomatic Anemia Final Diagnosis Problems Medical Problems: (1) Anemia Status: Acute (2) Hypokalemia Status: Acute (3) Hypomagnesemia Status: Acute Brief Hospital Course Allergies Allergies Coded Allergies Type Severity Reaction Last Updated Verified lisinopril Allergy Severe Swelling 01/27/17 Yes Vital Signs Vital Signs Date Time Temp Pulse Resp B/P (MAP) Pulse Ox O2 Delivery O2 Flow Rate FiO2 09/13/18 08:24 68 148/89 09/13/18 08:00 Room Air 3.0 09/13/18 07:22 97.5 18 94 97.5 Lab Results Laboratory Tests Test 09/12/18 04:30 09/13/18 08:00 09/13/18 08:40 White Blood Count 8.6 x10^3/uL (4.0-11.0) 7.7 x10^3/uL (4.0-11.0) Red Blood Count 4.12 x10^6/uL (4.30-5.70) 4.22 x10^6/uL (4.30-5.70) Hemoglobin 8.3 g/dL (13.0-17.5) 8.6 g/dL (13.0-17.5) Hematocrit 26.8 % (39.0-53.0) 27.9 % (39.0-53.0) Mean Corpuscular Volume 65 fL (79-100) 66 fL (79-100) Mean Corpuscular Hemoglobin 20 pg (25-35) 20 pg (25-35) Mean Corpuscular Hemoglobin Concent 31 g/dL (31-37) 31 g/dL (31-37) Red Cell Distribution Width 24.7 % (11.5-14.5) 25.2 % (11.5-14.5) Platelet Count 231 x10^3/uL (140-400) 284 x10^3/uL (140-400) Neutrophils (%) (Auto) 81 % (31-73) 67 % (31-73) Lymphocytes (%) (Auto) 13 % (24-48) 21 % (24-48) Monocytes (%) (Auto) 5 % (0-9) 9 % (0-9) Eosinophils (%) (Auto) 1 % (0-3) 2 % (0-3) Basophils (%) (Auto) 1 % (0-3) 1 % (0-3) Neutrophils # (Auto) 6.9 x10^3uL (1.8-7.7) 5.1 x10^3uL (1.8-7.7) Lymphocytes # (Auto) 1.1 x10^3/uL (1.0-4.8) 1.6 x10^3/uL (1.0-4.8) Monocytes # (Auto) 0.4 x10^3/uL (0.0-1.1) 0.7 x10^3/uL (0.0-1.1) Eosinophils # (Auto) 0.1 x10^3/uL (0.0-0.7) 0.1 x10^3/uL (0.0-0.7) Basophils # (Auto) 0.1 x10^3/uL (0.0-0.2) 0.1 x10^3/uL (0.0-0.2) Sodium Level 130 mmol/L (136-145) 130 mmol/L (136-145) Potassium Level 3.0 mmol/L (3.5-5.1) 3.7 mmol/L (3.5-5.1) Chloride Level 93 mmol/L (98-107) 93 mmol/L (98-107) Carbon Dioxide Level 27 mmol/L (21-32) 27 mmol/L (21-32) Anion Gap 10 (6-14) 10 (6-14) Blood Urea Nitrogen 17 mg/dL (8-26) 17 mg/dL (8-26) Creatinine 1.4 mg/dL (0.7-1.3) 1.6 mg/dL (0.7-1.3) Estimated GFR (Cockcroft-Gault) 51.4 44.0 BUN/Creatinine Ratio 12 (6-20) 11 (6-20) Glucose Level 150 mg/dL (70-99) 116 mg/dL (70-99) Calcium Level 8.6 mg/dL (8.5-10.1) 8.5 mg/dL (8.5-10.1) Magnesium Level 2.0 mg/dL (1.8-2.4) Total Bilirubin 2.2 mg/dL (0.2-1.0) 2.0 mg/dL (0.2-1.0) Aspartate Amino Transf (AST/SGOT) 52 U/L (15-37) 51 U/L (15-37) Alanine Aminotransferase (ALT/SGPT) 471 U/L (16-63) 71 U/L (16-63) Alkaline Phosphatase 73 U/L (46-116) 82 U/L (46-116) Total Protein 6.9 g/dL (6.4-8.2) 7.3 g/dL (6.4-8.2) Albumin 3.0 g/dL (3.4-5.0) 3.1 g/dL (3.4-5.0) Albumin/Globulin Ratio 0.8 (1.0-1.7) 0.7 (1.0-1.7) Urine Collection Type Unknown Urine Color Yellow Urine Clarity Clear Urine pH 8.0 Urine Specific [place] 1.010 Urine Protein Negative mg/dL (NEG-TRACE) Urine Glucose (UA) Negative mg/dL (NEG) Urine Ketones (Stick) Negative mg/dL (NEG) Urine Blood Negative (NEG) Urine Nitrite Negative (NEG) Urine Bilirubin Negative (NEG) Urine Urobilinogen Dipstick 2.0 mg/dL (0.2 mg/dL) Urine Leukocyte Esterase Negative (NEG) Urine RBC 0 /HPF (0-2) Urine WBC Occ /HPF (0-4) Urine Bacteria 0 /HPF (0-FEW) Laboratory Tests Test 09/13/18 08:00 09/13/18 08:40 Urine Collection Type Unknown Urine Color Yellow Urine Clarity Clear Urine pH 8.0 Urine Specific [place] 1.010 Urine Protein Negative mg/dL (NEG-TRACE) Urine Glucose (UA) Negative mg/dL (NEG) Urine Ketones (Stick) Negative mg/dL (NEG) Urine Blood Negative (NEG) Urine Nitrite Negative (NEG) Urine Bilirubin Negative (NEG) Urine Urobilinogen Dipstick 2.0 mg/dL (0.2 mg/dL) Urine Leukocyte Esterase Negative (NEG) Urine RBC 0 /HPF (0-2) Urine WBC Occ /HPF (0-4) Urine Bacteria 0 /HPF (0-FEW) White Blood Count 7.7 x10^3/uL (4.0-11.0) Red Blood Count 4.22 x10^6/uL (4.30-5.70) Hemoglobin 8.6 g/dL (13.0-17.5) Hematocrit 27.9 % (39.0-53.0) Mean Corpuscular Volume 66 fL (79-100) Mean Corpuscular Hemoglobin 20 pg (25-35) Mean Corpuscular Hemoglobin Concent 31 g/dL (31-37) Red Cell Distribution Width 25.2 % (11.5-14.5) Platelet Count 284 x10^3/uL (140-400) Neutrophils (%) (Auto) 67 % (31-73) Lymphocytes (%) (Auto) 21 % (24-48) Monocytes (%) (Auto) 9 % (0-9) Eosinophils (%) (Auto) 2 % (0-3) Basophils (%) (Auto) 1 % (0-3) Neutrophils # (Auto) 5.1 x10^3uL (1.8-7.7) Lymphocytes # (Auto) 1.6 x10^3/uL (1.0-4.8) Monocytes # (Auto) 0.7 x10^3/uL (0.0-1.1) Eosinophils # (Auto) 0.1 x10^3/uL (0.0-0.7) Basophils # (Auto) 0.1 x10^3/uL (0.0-0.2) Sodium Level 130 mmol/L (136-145) Potassium Level 3.7 mmol/L (3.5-5.1) Chloride Level 93 mmol/L (98-107) Carbon Dioxide Level 27 mmol/L (21-32) Anion Gap 10 (6-14) Blood Urea Nitrogen 17 mg/dL (8-26) Creatinine 1.6 mg/dL (0.7-1.3) Estimated GFR (Cockcroft-Gault) 44.0 BUN/Creatinine Ratio 11 (6-20) Glucose Level 116 mg/dL (70-99) Calcium Level 8.5 mg/dL (8.5-10.1) Total Bilirubin 2.0 mg/dL (0.2-1.0) Aspartate Amino Transf (AST/SGOT) 51 U/L (15-37) Alanine Aminotransferase (ALT/SGPT) 71 U/L (16-63) Alkaline Phosphatase 82 U/L (46-116) Total Protein 7.3 g/dL (6.4-8.2) Albumin 3.1 g/dL (3.4-5.0) Albumin/Globulin Ratio 0.7 (1.0-1.7) Brief Hospital Course Mr Whitney is a 63yo M w/ PMHx HTN admitted with Afib with RVR, found with large transaminitis and elevated cr. Hep C antibody positive. Required 1 u PRBC . Patient laying in bed in no apparent distress. The patient denies any dyspnea no chest pain or palpitations have been reported. Patient continues to have uncontrolled rate medications being adjusted by her applications development consultant. Had rate down in 80s after restarting metoprolol yesterday, did get digoxin x1. K finally near normal Assessment: AFIB with RVR; currently on Cardizem drip Generalized pruritus with no evidence of skin lesions History of essential Hypertension patient not taking medication at the present time. electrolyte disturbances with severe hypokalemia Microcytic anemia, iron deficiency? GI losses Tobacco abuse greater than 50 pack year history of smoking, counseling done less than 10 minutes. Hep C antibody positive Plan: continue with rate control - dual BB and CCB outpatient GI outpatient - f/u Hep C PCR results Home with home health for gait instability, and meds Greater than 30 minutes spent on discharge Discharge Information Condition at Discharge: Improved Follow Up: Weeks (2) Disposition/Orders: D/C to Home w/ HH ([facility]) Scheduled Aspirin (Aspirin Ec) 81 Mg Tablet.dr, 81 MG PO DAILYWBK for Afib for 30 Days, #30 Ref 11 Prescribed by: REESE HENAO MD on 09/13/18 1142 Folic Acid (Folic Acid) 1 Mg Tablet, 1 MG PO DAILY, #30 Prescribed by: DANIEL WOO MD on 02/07/17 1141 Metoprolol Tartrate (Metoprolol Tartrate) 25 Mg Tablet, 25 MG PO BID for Afib for 30 Days, #60 Ref 2 Prescribed by: REESE HENAO MD on 09/13/18 1142 Potassium Chloride (Klor-Con M20) 20 Meq Tab.er.prt, 40 MEQ PO DAILY for Hypokalemia for 30 Days, #60 Ref 2 Prescribed by: REESE HENAO MD on 09/13/18 1142 Thiamine Mononitrate (Vitamin B-1) 100 Mg Tablet, 100 MG PO DAILY, #30 Prescribed by: DANIEL WOO MD on 02/07/17 1141 [Diltiazem Hcl] 240 MG CAP.ER.24H, 240 MG PO DAILY for AFIB for 30 Days, #30 Ref 2 Prescribed by: REESE HENAO MD on 09/13/18 1142 [Pantoprazole] 40 MG TABLET.DR, 40 MG PO DAILYAC for GERD for 30 Days, #30 Ref 2 Prescribed by: REESE HENAO MD on 09/13/18 1142 Scheduled PRN Hydrocodone Bit/Acetaminophen (Hydrocodone-Apap 7.5-325 ) 1 Each Tablet, 1 TAB PO PRN Q3HRS PRN for PAIN, #20 Prescribed by: DANIEL WOO MD on 02/07/17 1141 Hydroxyzine Pamoate (Hydroxyzine Pamoate) 25 Mg Capsule, 25 MG PO PRN Q8HRS PRN for ITCHING for 30 Days, #90 Ref 2 Prescribed by: REESE HENAO MD on 09/13/18 1142 Discontinued Medications Enoxaparin Sodium (Enoxaparin Sodium) 40 Mg/0.4 Ml Disp.syrin, 40 MG SQ DAILY16 for 20 Days Prescribed by: DANIEL WOO MD on 02/07/17 1151 REESE HENAO MD Sep 13, 2018 11:51
--- NOTE | 2018-09-13 12:00 | NUR ---
Discharge Instructions reviewed with patient. Patient verbalizes understanding, prescriptions called in to pharmacy.
--- NOTE | 2018-09-13 13:16 | PDOC ---
PROGRESS NOTES Subjective Subjective Patient seen and examined The patient is more comfortable today. Objective Objective Vital Signs Date Time Temp Pulse Resp B/P (MAP) Pulse Ox O2 Delivery O2 Flow Rate FiO2 09/13/18 08:24 68 148/89 09/13/18 08:00 Room Air 3.0 09/13/18 07:22 97.5 18 94 97.5 Intake and Output 09/13/18 07:00 Intake Total 740 ml Output Total 400 ml Balance 340 ml Intake Oral 740 ml Output Urine Total 400 ml # Voids 4 Physical Exam Abdomen: Normal bowel sounds Heart: Other (irregularly irregular) General: No acute distress Lungs: Clear to auscultation Assessment Assessment Problems Medical Problems: (1) Anemia Status: Acute (2) Hypokalemia Status: Acute (3) Hypomagnesemia Status: Acute Atrial fibrillation. The patient aspirated under better control with beta blockers plus calcium channel blockers. Continue aspirin. The patient is a poor candidate for long-term anticoagulation. Hypertension. Controlled. Hypokalemia. Replaced. Anemia. Improved post transfusion. Hemoglobin yesterday of 8.3. Comment Review of Relevant I have reviewed the following items daysi (where applicable) has been applied. Labs Laboratory Tests Test 09/12/18 04:30 09/13/18 08:00 09/13/18 08:40 White Blood Count 8.6 x10^3/uL (4.0-11.0) 7.7 x10^3/uL (4.0-11.0) Red Blood Count 4.12 x10^6/uL (4.30-5.70) 4.22 x10^6/uL (4.30-5.70) Hemoglobin 8.3 g/dL (13.0-17.5) 8.6 g/dL (13.0-17.5) Hematocrit 26.8 % (39.0-53.0) 27.9 % (39.0-53.0) Mean Corpuscular Volume 65 fL (79-100) 66 fL (79-100) Mean Corpuscular Hemoglobin 20 pg (25-35) 20 pg (25-35) Mean Corpuscular Hemoglobin Concent 31 g/dL (31-37) 31 g/dL (31-37) Red Cell Distribution Width 24.7 % (11.5-14.5) 25.2 % (11.5-14.5) Platelet Count 231 x10^3/uL (140-400) 284 x10^3/uL (140-400) Neutrophils (%) (Auto) 81 % (31-73) 67 % (31-73) Lymphocytes (%) (Auto) 13 % (24-48) 21 % (24-48) Monocytes (%) (Auto) 5 % (0-9) 9 % (0-9) Eosinophils (%) (Auto) 1 % (0-3) 2 % (0-3) Basophils (%) (Auto) 1 % (0-3) 1 % (0-3) Neutrophils # (Auto) 6.9 x10^3uL (1.8-7.7) 5.1 x10^3uL (1.8-7.7) Lymphocytes # (Auto) 1.1 x10^3/uL (1.0-4.8) 1.6 x10^3/uL (1.0-4.8) Monocytes # (Auto) 0.4 x10^3/uL (0.0-1.1) 0.7 x10^3/uL (0.0-1.1) Eosinophils # (Auto) 0.1 x10^3/uL (0.0-0.7) 0.1 x10^3/uL (0.0-0.7) Basophils # (Auto) 0.1 x10^3/uL (0.0-0.2) 0.1 x10^3/uL (0.0-0.2) Sodium Level 130 mmol/L (136-145) 130 mmol/L (136-145) Potassium Level 3.0 mmol/L (3.5-5.1) 3.7 mmol/L (3.5-5.1) Chloride Level 93 mmol/L (98-107) 93 mmol/L (98-107) Carbon Dioxide Level 27 mmol/L (21-32) 27 mmol/L (21-32) Anion Gap 10 (6-14) 10 (6-14) Blood Urea Nitrogen 17 mg/dL (8-26) 17 mg/dL (8-26) Creatinine 1.4 mg/dL (0.7-1.3) 1.6 mg/dL (0.7-1.3) Estimated GFR (Cockcroft-Gault) 51.4 44.0 BUN/Creatinine Ratio 12 (6-20) 11 (6-20) Glucose Level 150 mg/dL (70-99) 116 mg/dL (70-99) Calcium Level 8.6 mg/dL (8.5-10.1) 8.5 mg/dL (8.5-10.1) Magnesium Level 2.0 mg/dL (1.8-2.4) Total Bilirubin 2.2 mg/dL (0.2-1.0) 2.0 mg/dL (0.2-1.0) Aspartate Amino Transf (AST/SGOT) 52 U/L (15-37) 51 U/L (15-37) Alanine Aminotransferase (ALT/SGPT) 471 U/L (16-63) 71 U/L (16-63) Alkaline Phosphatase 73 U/L (46-116) 82 U/L (46-116) Total Protein 6.9 g/dL (6.4-8.2) 7.3 g/dL (6.4-8.2) Albumin 3.0 g/dL (3.4-5.0) 3.1 g/dL (3.4-5.0) Albumin/Globulin Ratio 0.8 (1.0-1.7) 0.7 (1.0-1.7) Urine Collection Type Unknown Urine Color Yellow Urine Clarity Clear Urine pH 8.0 Urine Specific [place] 1.010 Urine Protein Negative mg/dL (NEG-TRACE) Urine Glucose (UA) Negative mg/dL (NEG) Urine Ketones (Stick) Negative mg/dL (NEG) Urine Blood Negative (NEG) Urine Nitrite Negative (NEG) Urine Bilirubin Negative (NEG) Urine Urobilinogen Dipstick 2.0 mg/dL (0.2 mg/dL) Urine Leukocyte Esterase Negative (NEG) Urine RBC 0 /HPF (0-2) Urine WBC Occ /HPF (0-4) Urine Bacteria 0 /HPF (0-FEW) Laboratory Tests Test 09/13/18 08:00 09/13/18 08:40 Urine Collection Type Unknown Urine Color Yellow Urine Clarity Clear Urine pH 8.0 Urine Specific [place] 1.010 Urine Protein Negative mg/dL (NEG-TRACE) Urine Glucose (UA) Negative mg/dL (NEG) Urine Ketones (Stick) Negative mg/dL (NEG) Urine Blood Negative (NEG) Urine Nitrite Negative (NEG) Urine Bilirubin Negative (NEG) Urine Urobilinogen Dipstick 2.0 mg/dL (0.2 mg/dL) Urine Leukocyte Esterase Negative (NEG) Urine RBC 0 /HPF (0-2) Urine WBC Occ /HPF (0-4) Urine Bacteria 0 /HPF (0-FEW) White Blood Count 7.7 x10^3/uL (4.0-11.0) Red Blood Count 4.22 x10^6/uL (4.30-5.70) Hemoglobin 8.6 g/dL (13.0-17.5) Hematocrit 27.9 % (39.0-53.0) Mean Corpuscular Volume 66 fL (79-100) Mean Corpuscular Hemoglobin 20 pg (25-35) Mean Corpuscular Hemoglobin Concent 31 g/dL (31-37) Red Cell Distribution Width 25.2 % (11.5-14.5) Platelet Count 284 x10^3/uL (140-400) Neutrophils (%) (Auto) 67 % (31-73) Lymphocytes (%) (Auto) 21 % (24-48) Monocytes (%) (Auto) 9 % (0-9) Eosinophils (%) (Auto) 2 % (0-3) Basophils (%) (Auto) 1 % (0-3) Neutrophils # (Auto) 5.1 x10^3uL (1.8-7.7) Lymphocytes # (Auto) 1.6 x10^3/uL (1.0-4.8) Monocytes # (Auto) 0.7 x10^3/uL (0.0-1.1) Eosinophils # (Auto) 0.1 x10^3/uL (0.0-0.7) Basophils # (Auto) 0.1 x10^3/uL (0.0-0.2) Sodium Level 130 mmol/L (136-145) Potassium Level 3.7 mmol/L (3.5-5.1) Chloride Level 93 mmol/L (98-107) Carbon Dioxide Level 27 mmol/L (21-32) Anion Gap 10 (6-14) Blood Urea Nitrogen 17 mg/dL (8-26) Creatinine 1.6 mg/dL (0.7-1.3) Estimated GFR (Cockcroft-Gault) 44.0 BUN/Creatinine Ratio 11 (6-20) Glucose Level 116 mg/dL (70-99) Calcium Level 8.5 mg/dL (8.5-10.1) Total Bilirubin 2.0 mg/dL (0.2-1.0) Aspartate Amino Transf (AST/SGOT) 51 U/L (15-37) Alanine Aminotransferase (ALT/SGPT) 71 U/L (16-63) Alkaline Phosphatase 82 U/L (46-116) Total Protein 7.3 g/dL (6.4-8.2) Albumin 3.1 g/dL (3.4-5.0) Albumin/Globulin Ratio 0.7 (1.0-1.7) Medications Current Medications Aspirin (Luc Aspirin) 325 mg 1X ONCE PO Last administered on 09/10/18at 04:13 ; Start 09/10/18 at 04:00; Stop 09/10/18 at 04:01; Status DC Sodium Chloride 1,000 ml @ 1,000 mls/hr 1X ONCE IV Last administered on at 04:15; Start 09/10/18 at 04:00; Stop 09/10/18 at 04:59; Status DC Diltiazem HCl (Cardizem Iv Push) 20 mg 1X ONCE IVP Last administered on at 04:14; Start 09/10/18 at 04:30; Stop 09/10/18 at 04:31; Status DC Diltiazem HCl 125 mg/Dextrose 125 ml @ 5 mls/hr 1X ONCE IV Last administered on 09/10/18at 04:15; Start 09/10/18 at 04:30; Stop 09/11/18 at 05:29; Status DC Ondansetron HCl (Zofran) 4 mg PRN Q8HRS PRN IV NAUSEA/VOMITING 1ST CHOICE; Start 09/10/18 at 04:15; Stop 09/11/18 at 04:15; Status DC Potassium Chloride (Klor-Con) 40 meq 1X ONCE PO Last administered on 09/10/18at 04:49; Start 09/10/18 at 05:00; Stop 09/10/18 at 05:01; Status DC Magnesium Sulfate 50 ml @ 25 mls/hr 1X ONCE IV Last administered on 09/10/18 04:50; Start 09/10/18 at 05:00; Stop 09/10/18 at 06:59; Status DC Diphenhydramine HCl (Benadryl) 25 mg PRN Q6HRS PRN PO ITCHING, 1ST CHOICE Last administered on 09/13/18 08:27; Start 09/10/18 at 07:45 Aspirin (Ecotrin) 81 mg DAILYWBKFT PO Last administered on 09/13/18 08:22; Start 09/11/18 at 08:00 Diltiazem HCl (Cardizem 24hr Cd) 240 mg DAILY PO Last administered on 09/11/18 08:58; Start 09/10/18 at 12:00; Stop 09/11/18 at 10:07; Status DC Potassium Chloride (Klor-Con) 40 meq 1X ONCE PO Last administered on 09/10/18 11:33; Start 09/10/18 at 11:15; Stop 09/10/18 at 11:16; Status DC Potassium Chloride (Klor-Con) 40 meq 1X ONCE PO Last administered on 09/10/18 15:11; Start 09/10/18 at 15:00; Stop 09/10/18 at 15:01; Status DC Hydroxyzine HCl (Atarax) 25 mg PRN Q8HRS PRN PO ITCHING; Start 09/10/18 at 12:15 ; Stop 09/10/18 at 12:22; Status DC Calcium Carbonate/ Glycine (Tums) 500 mg PRN Q2HRS PRN PO INDIGESTION Last administered on 09/12/18 16:29; Start 09/10/18 at 12:15 Hydroxyzine Pamoate (Vistaril) 25 mg PRN Q8HRS PRN PO ITCHING, 2ND CHOICE Last administered on 09/12/18 05:47; Start 09/10/18 at 12:22 Pantoprazole Sodium (PROTONIX VIAL for IV PUSH) 40 mg BID IVP Last administered on 09/12/18 08:15; Start 09/10/18 at 21:00; Stop 09/12/18 at 11:12; Status DC Multi-Ingredient Mouthwash/Gargle (Gi Cocktail) 20 ml PRN QID PRN PO CHEST PAIN Last administered on 09/10/18 15:12; Start 09/10/18 at 14:15 Diltiazem HCl (Cardizem) 60 mg 1X ONCE PO Last administered on 09/11/18 11:17 ; Start 09/11/18 at 11:00; Stop 09/11/18 at 11:01; Status DC Diltiazem HCl (Cardizem 24hr Cd) 300 mg DAILY PO Last administered on 09/12/18 08:14; Start 09/12/18 at 09:00; Stop 09/12/18 at 09:04; Status DC Potassium Chloride (Klor-Con) 40 meq 1X ONCE PO Last administered on 09/11/18 11:17; Start 09/11/18 at 11:00; Stop 09/11/18 at 11:01; Status DC Ferrous Sulfate (Iron Oral Solution) 300 mg BIDWMEALS PO Last administered on 08:24; Start 09/11/18 at 17:00 Potassium Chloride (Klor-Con) 40 meq DAILY PO Last administered on 09/13/18 08: 24; Start 09/12/18 at 10:00 Digoxin (Lanoxin) 500 mcg 1X ONCE IV Last administered on 09/12/18 10:08; Start 09/12/18 at 09:15; Stop 09/12/18 at 09:16; Status DC Metoprolol Tartrate (Lopressor) 25 mg BID PO Last administered on 09/13/18 08: 23; Start 09/12/18 at 10:00 Diltiazem HCl (Cardizem 24hr Cd) 240 mg DAILY PO Last administered on 09/13/18at 08:24; Start 09/13/18 at 09:00 Multi-Ingred Cream/Lotion/Oil/ Oint (Hydrocerin Cream) 1 suad PRN Q1HR PRN TP DRY SKIN / SCALING; Start 09/12/18 at 09:15 Hydrocortisone (Cortaid) 1 suad PRN DAILY PRN TP itching; Start 09/12/18 at 09:15 Pantoprazole Sodium (Protonix) 40 mg DAILYAC PO Last administered on 09/13/18at 08:24; Start 09/13/18 at 07:30 Active Scripts Active Klor-Con M20 (Potassium Chloride) 20 Meq Tab.er.prt 40 Meq PO DAILY 30 Days [Pantoprazole] 40 MG Tablet. 40 Mg PO DAILYAC 30 Days Hydroxyzine Pamoate 25 Mg Capsule 25 Mg PO PRN Q8HRS PRN 30 Days Aspirin Ec (Aspirin) 81 Mg Tablet.dr 81 Mg PO DAILYWBKFT 30 Days [Diltiazem Hcl] 240 MG Cap.er.24h 240 Mg PO DAILY 30 Days Metoprolol Tartrate 25 Mg Tablet 25 Mg PO BID 30 Days Vitamin B-1 (Thiamine Mononitrate) 100 Mg Tablet 100 Mg PO DAILY Hydrocodone-Apap 7.5-325 (Hydrocodone Bit/Acetaminophen) 1 Each Tablet 1 Tab PO PRN Q3HRS PRN Folic Acid 1 Mg Tablet 1 Mg PO DAILY Vitals/I & O Vital Sign - Last 24 Hours 09/12/18 09/12/18 09/12/18 09/12/18 15:00 19:30 19:50 21:06 Temp 97.9 98.1 97.9 98.1 Pulse 85 77 77 Resp 20 20 B/P (MAP) 133/79 (97) 128/90 (103) 103/73 Pulse Ox 98 95 O2 Delivery Room Air Room Air Room Air 09/12/18 09/13/18 09/13/18 09/13/18 22:31 02:56 07:22 08:00 Temp 97.7 97.5 97.5 97.7 97.5 97.5 Pulse 74 72 68 Resp 18 18 18 B/P (MAP) 110/77 (88) 120/73 (89) 148/89 (108) Pulse Ox 98 94 94 O2 Delivery Room Air Room Air Room Air Room Air O2 Flow Rate 3.0 09/13/18 09/13/18 08:23 08:24 Pulse 68 68 B/P (MAP) 148/89 148/89 Intake and Output 09/12/18 09/12/18 09/13/18 15:00 23:00 07:00 Intake Total 60 ml 680 ml Output Total 400 ml Balance 60 ml -400 ml 680 ml LULU BOWLES MD Sep 13, 2018 13:16
[2018-09-14 11:08] LABS: HCV ULTRA QUANT PCR 24700 IU/mL (.)
[2018-10-18] MEDS ORDERED: LACT1CAP19 PO (11:39)
[2018-10-18] MEDS ORDERED: AMOX1TAB11 PO (11:39)
[2018-10-18] MEDS ORDERED: ALBU2.5V8 NEB (11:39)
== END 2018-09-13 12:00 | disposition home health service (06) | DRG 309 ==
LOC: ER 03:19 → 2 SOUTH 04:10
PROVIDERS: ADMIT Internal Medicine; ATTEND Internal Medicine
PROC: 30233N1 Transfusion of Nonautologous Red Blood Cells into Peripheral Vein, Percutaneous Approach (ICD-10-PCS; principal; 2018-09-10)
DX: I48.91 Unspecified atrial fibrillation (principal); N17.9 Acute kidney failure, unspecified; D68.9 Coagulation defect, unspecified; E44.0 Moderate protein-calorie malnutrition; E87.6 Hypokalemia; R74.0 Nonspecific elevation of levels of transaminase and lactic acid dehydrogenase [LDH]; J84.10 Pulmonary fibrosis, unspecified; D50.9 Iron deficiency anemia, unspecified; L29.9 Pruritus, unspecified; Z88.8 Allergy status to other drugs, medicaments and biological substances; E83.42 Hypomagnesemia; F17.210 Nicotine dependence, cigarettes, uncomplicated; F10.10 Alcohol abuse, uncomplicated; I10 Essential (primary) hypertension; G89.29 Other chronic pain; K80.20 Calculus of gallbladder without cholecystitis without obstruction; K21.9 Gastro-esophageal reflux disease without esophagitis; K76.0 Fatty (change of) liver, not elsewhere classified; Z80.1 Family history of malignant neoplasm of trachea, bronchus and lung; Z87.81 Personal history of (healed) traumatic fracture; Z71.6 Tobacco abuse counseling
CPT/HCPCS: 36415; 71046; 80048; 80053; 80061; 80307; 81001; 82274; 82553; 83540; 83550; 83690; 83735; 83880; 84443; 84484; 85025; 85610; 86803; 86850; 86900; 86901; 86920; 87521; 93005; 93306; 96365; 96368; 96375; C9113; J1160; J3475; J3490; J7030; P9016; Q0163; Q0177; 99285-25

== ENCOUNTER 2018-10-06 05:54 | Inpatient (IN) | payer OTHER ==
[~2018-10-06] VITALS: Ht 182.9 cm; Wt 69.5 kg
[2018-10-06] VITALS (14 sets, daily range): BP systolic 90–133; BP diastolic 66–100
[~2018-10-06 05:54] MED LIST changes: +ASPI-612 PO; +DILTIAZEM HCL PO; +HYDR25CA75 PO; +POTA20TA4 PO; +Pantoprazole PO
[2018-10-06] MEDS ORDERED: fentaNYL PF VIAL 100 MCG/2 ML VIAL IV PRN (06:15)
[2018-10-06 06:17] LABS: BASO # 0.2 x10^3/uL (0.0-0.2); BASO % 2 % (0-3); EOS # 0.1 x10^3/uL (0.0-0.7); EOS % 1 % (0-3); HEMATOCRIT 31.3 % (39.0-53.0); HEMOGLOBIN 9.6 g/dL (13.0-17.5); LYMPH # 2.2 x10^3/uL (1.0-4.8); LYMPH % 22 % (24-48); MEAN CORPUSCULAR HEMOGLOBIN 20 pg (25-35); MEAN CORPUSCULAR HGB CONC 31 g/dL (31-37); MEAN CORPUSCULAR VOLUME 65 fL (79-100); MONO # 0.7 x10^3/uL (0.0-1.1); MONO % 7 % (0-9); NEUT # 7.1 x10^3uL (1.8-7.7); NEUT % 69 % (31-73); PLATELET COUNT 267 x10^3/uL (140-400); RED BLOOD COUNT 4.82 x10^6/uL (4.30-5.70); RED CELL DISTRIBUTION WIDTH 25.6 % (11.5-14.5); WHITE BLOOD COUNT 10.3 x10^3/uL (4.0-11.0)
--- NOTE | 2018-10-06 06:23 | PHYS DOC ---
Past Medical History Past Medical History: A-Fib, Hypertension, Other Additional Past Medical Histor: CHRONIC BACK PAIN Past Surgical History: No Surgical History Smoking: Cigarettes Alcohol Use: Occasionally Drug Use: None Adult General Chief Complaint Chief Complaint: RAPID HEART RATE HPI HPI 63-year-old male presents with report of generalized malaise and weakness over the last 24 hours. Patient reports some associated nausea early this morning. Patient also reports some dyspnea with exertion. Patient called EMS for transport to [facility] area EMS notes patient's heart rate significantly elevated up into the 160s to 180s. Patient does have a history of recently diagnosed A. fib RVR. Denies leg swelling or calf tenderness. Denies pleuritic pain. Review of Systems Review of Systems Constitutional: Denies fever or chills [] Eyes: Denies change in visual acuity, redness, or eye pain [] HENT: Denies nasal congestion or sore throat [] Respiratory: Denies cough; reports dyspnea with exertion Cardiovascular: Denies chest pain; reports palpitations GI: Denies abdominal pain; Reports nausea and vomiting : Denies dysuria or hematuria [] Musculoskeletal: Denies back pain or joint pain [] Integument: Denies rash or skin lesions [] Neurologic: Denies headache, focal weakness or sensory changes [] Complete systems were reviewed and found to be within normal limits, except as documented in this note. Current Medications Current Medications Allergies Allergies Allergies Coded Allergies Type Severity Reaction Last Updated Verified lisinopril Allergy Severe Swelling 01/27/17 Yes Physical Exam Physical Exam Constitutional: Well developed, well nourished, no acute distress, pallor HENT: Normocephalic, atraumatic, oropharynx moist Eyes: Conjunctiva normal, no discharge. [] Neck: Normal range of motion, no tenderness, supple Cardiovascular: Tachycardia, irregular Lungs & Thorax: Bilateral breath sounds clear to auscultation [] Abdomen: Soft, no tenderness Skin: Warm, dry, no erythema, no rash, pallor Back: No tenderness, no CVA tenderness. [] Extremities: No tenderness, ROM intact, no edema. [] Neurologic: Alert and oriented X 3, no focal deficits noted. [] Psychologic: Affect normal, judgement normal, mood normal. [] Current Patient Data Vital Signs Vital Signs Date Time Temp Pulse Resp B/P (MAP) Pulse Ox O2 Delivery O2 Flow Rate FiO2 10/06/18 06:00 97.8 184 20 147/101 (116) 98 Room Air 97.8 Lab Values Laboratory Tests Test 10/06/18 06:06 White Blood Count 10.3 x10^3/uL (4.0-11.0) Red Blood Count 4.82 x10^6/uL (4.30-5.70) Hemoglobin 9.6 g/dL (13.0-17.5) L Hematocrit 31.3 % (39.0-53.0) L Mean Corpuscular Volume 65 fL (79-100) L Mean Corpuscular Hemoglobin 20 pg (25-35) L Mean Corpuscular Hemoglobin Concent 31 g/dL (31-37) Red Cell Distribution Width 25.6 % (11.5-14.5) H Platelet Count 267 x10^3/uL (140-400) Neutrophils (%) (Auto) 69 % (31-73) Lymphocytes (%) (Auto) 22 % (24-48) L Monocytes (%) (Auto) 7 % (0-9) Eosinophils (%) (Auto) 1 % (0-3) Basophils (%) (Auto) 2 % (0-3) Neutrophils # (Auto) 7.1 x10^3uL (1.8-7.7) Lymphocytes # (Auto) 2.2 x10^3/uL (1.0-4.8) Monocytes # (Auto) 0.7 x10^3/uL (0.0-1.1) Eosinophils # (Auto) 0.1 x10^3/uL (0.0-0.7) Basophils # (Auto) 0.2 x10^3/uL (0.0-0.2) Platelet Estimate Pending Sodium Level 131 mmol/L (136-145) L Potassium Level 3.9 mmol/L (3.5-5.1) Chloride Level 95 mmol/L (98-107) L Carbon Dioxide Level 24 mmol/L (21-32) Anion Gap 12 (6-14) Blood Urea Nitrogen 29 mg/dL (8-26) H Creatinine 1.4 mg/dL (0.7-1.3) H Estimated GFR (Cockcroft-Gault) 51.4 BUN/Creatinine Ratio 21 (6-20) H Glucose Level 126 mg/dL (70-99) H Calcium Level 9.4 mg/dL (8.5-10.1) Magnesium Level 1.8 mg/dL (1.8-2.4) Total Bilirubin 1.6 mg/dL (0.2-1.0) H Aspartate Amino Transferase (AST) 37 U/L (15-37) Alanine Aminotransferase (ALT) 30 U/L (16-63) Alkaline Phosphatase 109 U/L (46-116) Creatine Kinase 47 U/L (39-308) Creatine Kinase MB (Mass) 1.8 ng/mL (0.0-3.6) Creatine Kinase MB Relative Index % (0-4) Troponin I Quantitative < 0.017 ng/mL (0.000-0.055) KO-Rqm-[id number]-Type Natriuretic Peptide 7941 pg/mL (0-124) H Total Protein 8.8 g/dL (6.4-8.2) H Albumin 3.9 g/dL (3.4-5.0) Albumin/Globulin Ratio 0.8 (1.0-1.7) L Lipase 176 U/L (73-393) Laboratory Tests 10/06/18 06:06 Laboratory Tests 10/06/18 06:06 EKG EKG @0605 SVT vs AFib RVR at 172bpm, NO ST elevation, nonspecific t wave inversion aVL Radiology/Procedures Radiology/Procedures PROCEDURE: PORTABLE CHEST 1V Indication:palpitations and chest pain TECHNIQUE:Portable AP chest X-ray COMPARISON:09/10/2018 FINDINGS: Heart is top normal in size. Diffuse bilateral interstitial opacities are seen. No pneumothorax or effusion. Visualized bony thorax within normal limits. IMPRESSION: Bilateral coarse interstitial opacities may secondary to chronic interstitial changes, interstitial pulmonary edema or atypical/viral infection. Electronically signed by: Josué Glover DO (10/06/2018 6:25 AM) [facility] Course & Med Decision Making Course & Med Decision Making Pertinent Labs and Imaging studies reviewed. (See chart for details) Patient presents with report of dyspnea with exertion with associated palpitations. Patient also with some nausea and vomiting. Patient noted to be in A. fib RVR upon arrival. History of similar. Cardizem bolus and drip initiated. Labs obtained and posted to chart. H/H improved from prior. Creat at baseline. Chest x-ray with findings consistent for fibrosis which is likely chronic in nature. Patient requiring admission for further evaluation and treatment. Discussed with Dr. Delatorre (hospitalist) who is in agreement with admission. Discussed findings and plan with patient, who acknowledges understanding and agreement. Dragon Disclaimer Dragon Disclaimer This electronic medical record was generated, in whole or in part, using a voice recognition dictation system. Departure Departure Impression: Primary Impression: Atrial fibrillation with RVR Disposition: ADMITTED INPATIENT Admitting Physician: Sujey Delatorre Condition: GUARDED Referrals: DIONE ARREDONDO (PCP) Critical Care Time Critical care time was 30 minutes which includes time at bedside, spent in discussion of patient's care with specialists and/or family members, with interpretation of laboratory and/or radiological studies and is exclusive of procedures. REJI GUZMAN DO Oct 06, 2018 06:23
--- NOTE | 2018-10-06 06:28 | RAD ---
Indication:palpitations and chest pain TECHNIQUE:Portable AP chest X-ray COMPARISON:09/10/2018 FINDINGS: Heart is top normal in size. Diffuse bilateral interstitial opacities are seen. No pneumothorax or effusion. Visualized bony thorax within normal limits. IMPRESSION: Bilateral coarse interstitial opacities may secondary to chronic interstitial changes, interstitial pulmonary edema or atypical/viral infection. Electronically signed by: Josué Glover DO (10/06/2018 6:25 AM) [facility]
[2018-10-06] MEDS: ONDANSETRON PF 4 MG/2 ML VIAL. IV PRN ×2 (06:29→16:04)
[2018-10-06 06:30] LABS: CALCIUM 9.4 mg/dL (8.5-10.1); CREATININE 1.4 mg/dL (0.7-1.3); GFR 51.4; POTASSIUM 3.9 mmol/L (3.5-5.1)
[2018-10-06] MEDS ORDERED: IV NORMAL SALINE 1000ML BAG 1,000 ML IV ONE (06:30)
[2018-10-06] MEDS ORDERED: dilTIAZem IV PUSH 25 MG/5 ML VIAL IVP ONE (06:30)
[2018-10-06] MEDS ORDERED: ASPIRIN 325 MG TABLET PO ONE (06:30)
[2018-10-06 06:39] LABS: ALBUMIN 3.9 g/dL (3.4-5.0); ALBUMIN/GLOBULIN RATIO 0.8 (1.0-1.7); MAGNESIUM 1.8 mg/dL (1.8-2.4); TOTAL BILIRUBIN 1.6 mg/dL (0.2-1.0); TOTAL PROTEIN 8.8 g/dL (6.4-8.2)
[2018-10-06 06:44] LABS: CREATINE KINASE 47 U/L (39-308)
[2018-10-06] MEDS ORDERED: dilTIAZem INJ 125 MG in IV DEXTROSE 5% 100ML 100 ML IV ONE (07:00)
--- NOTE | 2018-10-06 07:20 | EKG ---
[facility] [address] [place] [id number] Test Date: 2018-10-06 Test Time: 06:05:07 Pat Name: KEN LYMAN Department: Room: 252 1 Gender: M [employer] App[employer]: : [id number] Requested By: REJI GUZMAN Order Number: [id number] Reading MD: Robin Adam Measurements Intervals [place] Rate: 172 P: [place]: QRS: 31 QRSD: 84 T: 83 QT: 290 QTc: 500 Interpretive Statements ATRIAL FIBRILLATION WITH RVR NONSPECIFIC ST-T WAVE CHANGES Electronically Signed On 10-10-2018 9:16:03 CDT by Robin Adam
--- NOTE | 2018-10-06 07:58 | PDOC1 ---
History and Physical Date of Admission: Date of Admission DATE: 10/06/18 TIME: 07:55 Chief Complaint: Chief Complain: Abdominal pain History of Present Illness: HPI: Mr Whitney is a 63yo M w/ PMHx HTN admitted with Afib with RVR report of generalized malaise and weakness over the last 24 hours. Patient reports some associated nausea early this morning. Patient also reports some dyspnea with exertion. Patient called EMS for transport to Hospital area EMS notes patient's heart rate significantly elevated up into the 160s to 180s. Patient does have a history of recently diagnosed A. fib RVR. Found with large transaminitis and elevated cr last visit. Hep C viral titer positive. Required 1 u PRBC 09/11/18. Past Medical/Surgical History: PMH/PSH: PMHx - HTN, afib Past Surgical History: Other (Closed reduction and intramedullary nailing of left intertrochanteric hip fracture) Allergies: Allergies: Coded Allergies: lisinopril (Verified Allergy, Severe, Swelling, 01/27/17) ANGIOEDEMA Family History: Family History: AFIB- brother Social History: Social Hisoty: Smoke: 1 pack per day ALCOHOL: other (long-stading h/o ETOH (7-8 beers per day) Quit last year) Drugs: None Current Medications: Current Medications Current Medications Aspirin (Luc Aspirin) 325 mg 1X ONCE PO Last administered on 10/06/18at 06:30; Start 10/06/18 at 06:30; Stop 10/06/18 at 06:31; Status DC Sodium Chloride 1,000 ml @ 1,000 mls/hr 1X ONCE IV Last administered on 10/06/18at 06:29; Start 10/06/18 at 06:30; Stop 10/06/18 at 07:29; Status DC Diltiazem HCl (Cardizem Iv Push) 20 mg 1X ONCE IVP Last administered on 10/06/18at 06:30; Start 10/06/18 at 06:30; Stop 10/06/18 at 06:31; Status DC Diltiazem HCl 125 mg/Dextrose 125 ml @ 5 mls/hr 1X ONCE IV Last administered on 10/06/18at 06:30; Start 10/06/18 at 07:00; Stop 10/07/18 at 07:59 Ondansetron HCl (Zofran) 4 mg PRN Q8HRS PRN IV NAUSEA/VOMITING 1ST CHOICE Last administered on 10/06/18at 06:29; Start 10/06/18 at 06:15; Stop 10/07/18 at 06:14 Fentanyl Citrate (Fentanyl 2ml Vial) 50 mcg PRN Q2HRS PRN IV SEVERE PAIN; Start 10/06/18 at 06:15 Active Scripts Active Klor-Con M20 (Potassium Chloride) 20 Meq Tab.er.prt 40 Meq PO DAILY 30 Days [Pantoprazole] 40 MG Tablet.dr 40 Mg PO DAILYAC 30 Days Hydroxyzine Pamoate 25 Mg Capsule 25 Mg PO PRN Q8HRS PRN 30 Days Aspirin Ec (Aspirin) 81 Mg Tablet.dr 81 Mg PO DAILYWBKFT 30 Days [Diltiazem Hcl] 240 MG Cap.er.24h 240 Mg PO DAILY 30 Days Metoprolol Tartrate 25 Mg Tablet 25 Mg PO BID 30 Days Vitamin B-1 (Thiamine Mononitrate) 100 Mg Tablet 100 Mg PO DAILY Hydrocodone-Apap 7.5-325 (Hydrocodone Bit/Acetaminophen) 1 Each Tablet 1 Tab PO PRN Q3HRS PRN Folic Acid 1 Mg Tablet 1 Mg PO DAILY ROS: Review of Systems Review of System REVIEW OF SYSTEMS: GENERAL: Denies weakness SKIN: No bruising, hair changes or rashes. EYES: No blurred, double or loss of vision. NOSE AND THROAT: No history of nosebleeds, hoarseness or sore throat. HEART: History of palpitations, chest pain and shortness of breath on exertion. LUNGS: Denies cough, hemoptysis, wheezing or shortness of breath. GASTROINTESTINAL: Denies changes in appetite, nausea, vomiting, diarrhea or constipation. Does have reflux GENITOURINARY: No history of frequency, urgency, hesitancy or nocturia. NEUROLOGIC: Denies history of numbness, tingling, tremor or weakness. PSYCHIATRIC: No history of panic, anxiety or depression. ENDOCRINE: No history of heat or cold intolerance, polyuria or polydipsia. EXTREMITIES: Denies muscle weakness, joint pain, pain on walking or stiffness. Physical Exam: Vital Signs: Vital Signs Date Time Temp Pulse Resp B/P (MAP) Pulse Ox O2 Delivery O2 Flow Rate FiO2 10/06/18 07:07 106 26 134/97 (109) 96 Nasal Cannula 2.0 10/06/18 06:00 97.8 97.8 Physcial Exam: GEN.: No apparent distress. Alert and oriented. HEENT: Head is normocephalic, atraumatic NECK: Supple, no JVD LUNGS: Clear to auscultation without rhonchi or wheezing HEART: RRR, S1, S2 present. Peripheral pulses intact ABDOMEN: Soft, nontender. Positive bowel sounds no organomegaly EXTREMITIES: Without any cyanosis, clubbing, or edema. Pedal pulses intact NEUROLOGIC: Normal speech, normal tone. A&O x 3 PSYCHIATRIC: Normal affect, normal mood. Stable SKIN: No ulcerations or rashes Labs: Labs: Laboratory Tests Test 10/06/18 06:06 White Blood Count 10.3 x10^3/uL (4.0-11.0) Red Blood Count 4.82 x10^6/uL (4.30-5.70) Hemoglobin 9.6 g/dL (13.0-17.5) Hematocrit 31.3 % (39.0-53.0) Mean Corpuscular Volume 65 fL (79-100) Mean Corpuscular Hemoglobin 20 pg (25-35) Mean Corpuscular Hemoglobin Concent 31 g/dL (31-37) Red Cell Distribution Width 25.6 % (11.5-14.5) Platelet Count 267 x10^3/uL (140-400) Neutrophils (%) (Auto) 69 % (31-73) Lymphocytes (%) (Auto) 22 % (24-48) Monocytes (%) (Auto) 7 % (0-9) Eosinophils (%) (Auto) 1 % (0-3) Basophils (%) (Auto) 2 % (0-3) Neutrophils # (Auto) 7.1 x10^3uL (1.8-7.7) Lymphocytes # (Auto) 2.2 x10^3/uL (1.0-4.8) Monocytes # (Auto) 0.7 x10^3/uL (0.0-1.1) Eosinophils # (Auto) 0.1 x10^3/uL (0.0-0.7) Basophils # (Auto) 0.2 x10^3/uL (0.0-0.2) Prothrombin Time 17.0 SEC (11.7-14.0) Prothromb Time International Ratio 1.4 (0.8-1.1) Sodium Level 131 mmol/L (136-145) Potassium Level 3.9 mmol/L (3.5-5.1) Chloride Level 95 mmol/L (98-107) Carbon Dioxide Level 24 mmol/L (21-32) Anion Gap 12 (6-14) Blood Urea Nitrogen 29 mg/dL (8-26) Creatinine 1.4 mg/dL (0.7-1.3) Estimated GFR (Cockcroft-Gault) 51.4 BUN/Creatinine Ratio 21 (6-20) Glucose Level 126 mg/dL (70-99) Calcium Level 9.4 mg/dL (8.5-10.1) Magnesium Level 1.8 mg/dL (1.8-2.4) Total Bilirubin 1.6 mg/dL (0.2-1.0) Aspartate Amino Transf (AST/SGOT) 37 U/L (15-37) Alanine Aminotransferase (ALT/SGPT) 30 U/L (16-63) Alkaline Phosphatase 109 U/L (46-116) Creatine Kinase 47 U/L (39-308) Creatine Kinase MB (Mass) 1.8 ng/mL (0.0-3.6) Creatine Kinase MB Relative Index % (0-4) Troponin I Quantitative < 0.017 ng/mL (0.000-0.055) DS-Nok-K-Type Natriuretic Peptide 7941 pg/mL (0-124) Total Protein 8.8 g/dL (6.4-8.2) Albumin 3.9 g/dL (3.4-5.0) Albumin/Globulin Ratio 0.8 (1.0-1.7) Lipase 176 U/L (73-393) Laboratory Tests Test 10/06/18 06:06 White Blood Count 10.3 x10^3/uL (4.0-11.0) Red Blood Count 4.82 x10^6/uL (4.30-5.70) Hemoglobin 9.6 g/dL (13.0-17.5) Hematocrit 31.3 % (39.0-53.0) Mean Corpuscular Volume 65 fL (79-100) Mean Corpuscular Hemoglobin 20 pg (25-35) Mean Corpuscular Hemoglobin Concent 31 g/dL (31-37) Red Cell Distribution Width 25.6 % (11.5-14.5) Platelet Count 267 x10^3/uL (140-400) Neutrophils (%) (Auto) 69 % (31-73) Lymphocytes (%) (Auto) 22 % (24-48) Monocytes (%) (Auto) 7 % (0-9) Eosinophils (%) (Auto) 1 % (0-3) Basophils (%) (Auto) 2 % (0-3) Neutrophils # (Auto) 7.1 x10^3uL (1.8-7.7) Lymphocytes # (Auto) 2.2 x10^3/uL (1.0-4.8) Monocytes # (Auto) 0.7 x10^3/uL (0.0-1.1) Eosinophils # (Auto) 0.1 x10^3/uL (0.0-0.7) Basophils # (Auto) 0.2 x10^3/uL (0.0-0.2) Prothrombin Time 17.0 SEC (11.7-14.0) Prothromb Time International Ratio 1.4 (0.8-1.1) Sodium Level 131 mmol/L (136-145) Potassium Level 3.9 mmol/L (3.5-5.1) Chloride Level 95 mmol/L (98-107) Carbon Dioxide Level 24 mmol/L (21-32) Anion Gap 12 (6-14) Blood Urea Nitrogen 29 mg/dL (8-26) Creatinine 1.4 mg/dL (0.7-1.3) Estimated GFR (Cockcroft-Gault) 51.4 BUN/Creatinine Ratio 21 (6-20) Glucose Level 126 mg/dL (70-99) Calcium Level 9.4 mg/dL (8.5-10.1) Magnesium Level 1.8 mg/dL (1.8-2.4) Total Bilirubin 1.6 mg/dL (0.2-1.0) Aspartate Amino Transf (AST/SGOT) 37 U/L (15-37) Alanine Aminotransferase (ALT/SGPT) 30 U/L (16-63) Alkaline Phosphatase 109 U/L (46-116) Creatine Kinase 47 U/L (39-308) Creatine Kinase MB (Mass) 1.8 ng/mL (0.0-3.6) Creatine Kinase MB Relative Index % (0-4) Troponin I Quantitative < 0.017 ng/mL (0.000-0.055) IA-Hdl-R-Type Natriuretic Peptide 7941 pg/mL (0-124) Total Protein 8.8 g/dL (6.4-8.2) Albumin 3.9 g/dL (3.4-5.0) Albumin/Globulin Ratio 0.8 (1.0-1.7) Lipase 176 U/L (73-393) Images: Images CXR - Bilateral coarse interstitial opacities may secondary to chronic interstit ial changes, interstitial pulmonary edema or atypical/viral infection. Assessment/Plan Assessment/Plan Assessment/Plan: AFIB with RVR; currently on Cardizem drip - will convert to oral. Consult cardiology Generalized pruritus with no evidence of skin lesions - likely from Hep C History of essential Hypertension - back on meds now Acute encephalopathy - was confused, possibly is hepatic, will give lactulose Microcytic anemia, iron deficiency? GI losses - consult GI Tobacco abuse greater than 50 pack year history of smoking, counseling done less than 10 minutes. Hep C - viral titer 06945 last check, will consult GI FEN - Cardiac diet PPX - protonix, Heparin FULL CODE Inpatient for recurrent afib, now with worsening abdominal pain and confusion, in for at least 2 midnights REESE HENAO MD Oct 06, 2018 07:58
[2018-10-06 08:06] LABS: ANISOCYTOSIS MOD; PLT ESTIMATE ADEQUATE (ADEQUATE)
[2018-10-06 08:07] LABS: OVALOCYTES FEW; POLYCHROMASIA OCCASIONAL; TARGET CELLS OCC
--- NOTE | 2018-10-06 09:22 | PDOC2 ---
CARDIAC CONSULT DATE OF CONSULT Date of Consult DATE: 10/06/18 TIME: 09:14 REASON FOR CONSULT Reason for Consult: AFIB with RVR REFERRING PHYSICIAN Referring Physician: Dr. Calhoun SOURCE Source: Chart review, Patient HISTORY OF PRESENT ILLNESS HISTORY OF PRESENT ILLNESS This is a 63 yo male, with a history of hypertension and newly diagnosed AFIB, who presented secondary to AFIB with RVR. Patient reported generalized weakness/fatigue and nausea the morning of arrival. EMS was called and noted patient's heart rate to be elevated in the 160's. Was brought in for further evaluation and treatment. Patient is a poor historian. Appears somewhat confused. Initially told me that he has been complaint with medications and that has been setting them up for him. Told the RN that his provider told him to stop taking his mediations about a week ago. Went back to further clarify this and patient reports he hasn't been taking any medication whatsoever. HH has been setting up his dad's medications (his dad is in rehab facility and has been for some time). Discussed that he was started and discharged home on multiple medication last admission when he was diagnosed with AFIB. Patient reports he may have taken some medication for a short period of time, but does not take any medications now. He denies any chest pain, palpitations, dizziness, diaphoresis, SOA, or nausea/vomiting. Does c/o itching all over, especially his back. H/o ETOH abuse and hepatitic C. Per chart review, patient was discharged home with last admission, which was earlier this month. PAST MEDICAL HISTORY Past Medical History Cardiovascular: HTN, AFIB Pulmonary: No pertinent hx CENTRAL NERVOUS SYSTEM: Other (no pertinent positives) GI: No pertinent hx Heme/Onc: No pertinent hx Hepatobiliary: Hepatitis C Psych: No pertinent hx Musculoskeletal: low back pain Rheumatologic: No pertinent hx Infectious disease: No pertinent hx ENT: No pertinent hx Renal/: No pertinent hx Endocrine: No pertinent hx Dermatology: No pertinent hx PAST SURGICAL HISTORY Past Surgical History Other (Closed reduction and intramedullary nailing of left intertrochanteric hip fracture) FAMILY HISTORY Family History AFIB (brother) SOCIAL HISTORY Social History Smoke: 1 pack per day ALCOHOL: other (long-standing h/o ETOH (7-8 beers per day) Quit last year) Drugs: None Lives: with Family CURRENT MEDICATIONS CURRENT MEDICATIONS Current Medications Medications (Trade) Dose Ordered Sig/Debbie Route PRN Reason Start Time Stop Time Status Last Admin Dose Admin Aspirin (Luc Aspirin) 325 mg 1X ONCE PO 10/06/18 06:30 10/06/18 06:31 DC 10/06/18 06:30 Sodium Chloride 1,000 ml @ 1,000 mls/hr 1X ONCE IV 10/06/18 06:30 10/06/18 07:29 DC 10/06/18 06:29 Diltiazem HCl (Cardizem Iv Push) 20 mg 1X ONCE IVP 10/06/18 06:30 10/06/18 06:31 DC 10/06/18 06:30 Diltiazem HCl 125 mg/Dextrose 125 ml @ 5 mls/hr 1X ONCE IV 10/06/18 07:00 10/07/18 07:59 10/06/18 06:30 Ondansetron HCl (Zofran) 4 mg PRN Q8HRS PRN IV NAUSEA/VOMITING 1ST CHOICE 10/06/18 06:15 10/07/18 06:14 10/06/18 06:29 ALLERGIES ALLERGIES: Coded Allergies: lisinopril (Verified Allergy, Severe, Swelling, 01/27/17) ANGIOEDEMA ROS Review of System 14 point ROS conducted with pertinent positives noted above in HPI. PHYSICAL EXAM PHYSICAL EXAM General: Alert, Oriented X3, Cooperative, No acute distress HEENT: Atraumatic Lungs: diminished bases Heart: Other (IRR; tele AFIB- rate 90-120) Abdomen: Soft, No tenderness Extremities: No edema, Normal pulses Skin: No breakdown, No significant lesion Neuro: Normal speech, Sensation intact Psych/Mental Status: Mental status NL, Mood NL MUSCULOSKELETAL: Osteoarthritic changes both hands VITALS VITALS Vital Signs Date Time Temp Pulse Resp B/P (MAP) Pulse Ox O2 Delivery O2 Flow Rate FiO2 10/06/18 07:07 106 26 134/97 (109) 96 Nasal Cannula 2.0 10/06/18 06:00 97.8 97.8 LABS Lab: Laboratory Tests Test 10/06/18 06:06 White Blood Count 10.3 x10^3/uL (4.0-11.0) Red Blood Count 4.82 x10^6/uL (4.30-5.70) Hemoglobin 9.6 g/dL (13.0-17.5) Hematocrit 31.3 % (39.0-53.0) Mean Corpuscular Volume 65 fL (79-100) Mean Corpuscular Hemoglobin 20 pg (25-35) Mean Corpuscular Hemoglobin Concent 31 g/dL (31-37) Red Cell Distribution Width 25.6 % (11.5-14.5) Platelet Count 267 x10^3/uL (140-400) Neutrophils (%) (Auto) 69 % (31-73) Lymphocytes (%) (Auto) 22 % (24-48) Monocytes (%) (Auto) 7 % (0-9) Eosinophils (%) (Auto) 1 % (0-3) Basophils (%) (Auto) 2 % (0-3) Neutrophils # (Auto) 7.1 x10^3uL (1.8-7.7) Lymphocytes # (Auto) 2.2 x10^3/uL (1.0-4.8) Monocytes # (Auto) 0.7 x10^3/uL (0.0-1.1) Eosinophils # (Auto) 0.1 x10^3/uL (0.0-0.7) Basophils # (Auto) 0.2 x10^3/uL (0.0-0.2) Platelet Estimate Adequate (ADEQUATE) Polychromasia Occasional Anisocytosis Mod Target Cells Occ Ovalocytes Few Prothrombin Time 17.0 SEC (11.7-14.0) Prothromb Time International Ratio 1.4 (0.8-1.1) Sodium Level 131 mmol/L (136-145) Potassium Level 3.9 mmol/L (3.5-5.1) Chloride Level 95 mmol/L (98-107) Carbon Dioxide Level 24 mmol/L (21-32) Anion Gap 12 (6-14) Blood Urea Nitrogen 29 mg/dL (8-26) Creatinine 1.4 mg/dL (0.7-1.3) Estimated GFR (Cockcroft-Gault) 51.4 BUN/Creatinine Ratio 21 (6-20) Glucose Level 126 mg/dL (70-99) Calcium Level 9.4 mg/dL (8.5-10.1) Magnesium Level 1.8 mg/dL (1.8-2.4) Total Bilirubin 1.6 mg/dL (0.2-1.0) Aspartate Amino Transf (AST/SGOT) 37 U/L (15-37) Alanine Aminotransferase (ALT/SGPT) 30 U/L (16-63) Alkaline Phosphatase 109 U/L (46-116) Creatine Kinase 47 U/L (39-308) Creatine Kinase MB (Mass) 1.8 ng/mL (0.0-3.6) Creatine Kinase MB Relative Index % (0-4) Troponin I Quantitative < 0.017 ng/mL (0.000-0.055) YO-Rvf-F-Type Natriuretic Peptide 7941 pg/mL (0-124) Total Protein 8.8 g/dL (6.4-8.2) Albumin 3.9 g/dL (3.4-5.0) Albumin/Globulin Ratio 0.8 (1.0-1.7) Lipase 176 U/L (73-393) ECHOCARDIOGRAM ECHOCARDIOGRAM <Conclusion> The left ventricle is normal size. Left ventricle systolic function is low normal. The Ejection Fraction is estimated at 50%. Septal motion consistent with conduction abnormality. There is no significant aortic valvular stenosis. Doppler and Color Flow revealed no significant aortic regurgitation. Doppler and Color-flow revealed mild to moderate mitral regurgitation. Doppler and Color Flow revealed mild tricuspid regurgitation. There is moderate pulmonary hypertension. The PA pressure was estimated at 40 mmHg. DATE: 09/10/18 1148 ASSESSMENT/PLAN ASSESSMENT/PLAN 1. AFIB with RVR; rate better controlled on Cardizem gtt 2. Hypertension 3. Anemia 4. Coagulopathy 1.4 with past ETOH use and Hep C 5. Suspect COPD with continued tobaccoism: moderate pulmonary hypertension 6. NATHANIEL on CKD? 7. Metabolic encephalopathy Recommendations Resume metoprolol and Cardizem. Titrate off Cardizem gtt as able ASA for stroke prophylaxis, overall poor candidate for intermediate project manager anticoagulation with notable liver disease, anemia and coagulopathy Consider further ischemic workup on an outpatient basis. Smoking cessation discussed and encouraged MAYO BUSTOS APRN Oct 06, 2018 09:22
[2018-10-06] MEDS ORDERED: GABA300C18 PO (09:46)
[2018-10-06] MEDS ORDERED: CYCL10TA2 PO (09:46)
[2018-10-06] MEDS ORDERED: CALC300T5 PO (09:56)
--- NOTE | 2018-10-06 10:36 | NUR ---
LEIDA reviewed pt's medical chart and evaluated for potential dc needs. Pt is from home with family and was admitted for AFIB RVR. 's note indicated pt will need home health upon dc for gait. LEX will order PT/OT. LEIDA will await PT/OT notes to determine if pt qualifies for home health. If pt qualifies, LEIDA will meet with pt to discuss home health options and arrange services.
[2018-10-06] MEDS ORDERED: LACTULOSE 20 GM/30 ML SOLUTION. PO PRN (11:00)
[2018-10-06] MEDS ORDERED: PANTOPRAZOLE 40 MG TABLET.DR. PO SCH (11:00)
[2018-10-06] MEDS ORDERED: hydrOXYzine PAMOATE 25 MG CAPSULE PO PRN (11:00)
[2018-10-06] MEDS: IPRATRPIUM/ALBUTEROL 0.5/2.5MG 3 ML NEBU. NEB SCH ×3 (12:00→19:21)
[2018-10-06] MEDS: CALCIUM CARBONATE 500 MG TAB.CHEW PO PRN ×2 (12:53→21:58)
[2018-10-06] MEDS: THIAMINE 100 MG TABLET. PO SCH (12:53)
[2018-10-06] MEDS: PANTOPRAZOLE IV PUSH 40 MG VIAL. IVP SCH (12:54)
[2018-10-06] MEDS: FOLIC ACID 1 MG TABLET. PO SCH (12:54)
[2018-10-06] MEDS: METOPROLOL TART IMMED RELEASE 25 MG TABLET. PO SCH ×2 (12:55→20:53)
--- NOTE | 2018-10-06 14:43 | PDOC2 ---
GI CONSULT Reason For Consult: Hepatitis C positive viral titer, pt aware HPI: HPI: 63 y/o male who we saw earlier this month re: ALLI. Was started on PPI and iron (neither continued apparently) and recommended outpt 'scopes. At that time, Hep C confirmed and we are asked to see re: this now. He repeatedly says he doesn't know how he got Hep C. He tells me he came to the hospital with "stomach problems." He can't remember the last time he ate or what he, but probably something on Saturday. On Saturday, he just felt sick. He is tolerating a few sips of liquids today. Denies dysphagia, vomiting, abd pain, diarrhea, constipation, hematochezia, and melena. Assumes weight loss during this time. This time tells me long h/o reflux that is "pretty bad after I eat" - takes Tums or Rolaids PRN. When we saw him before, he said someone told him to take Mylanta when he was 22 after having a stomach scope. Still takes ibuprofen PRN - can't tell me why. Previous imaging (from 2016) shows hepatic steatosis and cholelithiasis. No previous colonoscopy. PMH: PMH: HTN, A Fib, cholelithiasis, Hep C, ALLI, CKD left hip surgery FH: Family History: Cancer Social History: Smoke: 1 pack per day ALCOHOL: other (heavy in the past, ?sober now) Drugs: None ROS: A bit difficult to obtain. GEN: Denies fevers, chills, sweats HEENT: Denies blurred vision, sore throat CV: Denies chest pain RESP: Denies shortness of air, cough GI: Per HPI : Denies hematuria, dysuria ENDO: +weight loss NEURO: Denies confusion, dizziness MSK: Denies weakness, joint pain/swelling SKIN: Denies jaundice, pruritus Vitals: Vitals: Vital Signs Date Time Temp Pulse Resp B/P (MAP) Pulse Ox O2 Delivery O2 Flow Rate FiO2 10/06/18 12:55 110 115/98 10/06/18 11:00 97.4 20 97 Nasal Cannula 2.0 97.4 Labs: Labs: Laboratory Tests Test 10/06/18 06:06 10/06/18 09:10 10/06/18 12:15 White Blood Count 10.3 x10^3/uL (4.0-11.0) Red Blood Count 4.82 x10^6/uL (4.30-5.70) Hemoglobin 9.6 g/dL (13.0-17.5) Hematocrit 31.3 % (39.0-53.0) Mean Corpuscular Volume 65 fL (79-100) Mean Corpuscular Hemoglobin 20 pg (25-35) Mean Corpuscular Hemoglobin Concent 31 g/dL (31-37) Red Cell Distribution Width 25.6 % (11.5-14.5) Platelet Count 267 x10^3/uL (140-400) Neutrophils (%) (Auto) 69 % (31-73) Lymphocytes (%) (Auto) 22 % (24-48) Monocytes (%) (Auto) 7 % (0-9) Eosinophils (%) (Auto) 1 % (0-3) Basophils (%) (Auto) 2 % (0-3) Neutrophils # (Auto) 7.1 x10^3uL (1.8-7.7) Lymphocytes # (Auto) 2.2 x10^3/uL (1.0-4.8) Monocytes # (Auto) 0.7 x10^3/uL (0.0-1.1) Eosinophils # (Auto) 0.1 x10^3/uL (0.0-0.7) Basophils # (Auto) 0.2 x10^3/uL (0.0-0.2) Platelet Estimate Adequate (ADEQUATE) Polychromasia Occasional Anisocytosis Mod Target Cells Occ Ovalocytes Few Prothrombin Time 17.0 SEC (11.7-14.0) Prothromb Time International Ratio 1.4 (0.8-1.1) Sodium Level 131 mmol/L (136-145) Potassium Level 3.9 mmol/L (3.5-5.1) Chloride Level 95 mmol/L (98-107) Carbon Dioxide Level 24 mmol/L (21-32) Anion Gap 12 (6-14) Blood Urea Nitrogen 29 mg/dL (8-26) Creatinine 1.4 mg/dL (0.7-1.3) Estimated GFR (Cockcroft-Gault) 51.4 BUN/Creatinine Ratio 21 (6-20) Glucose Level 126 mg/dL (70-99) Calcium Level 9.4 mg/dL (8.5-10.1) Magnesium Level 1.8 mg/dL (1.8-2.4) Total Bilirubin 1.6 mg/dL (0.2-1.0) Aspartate Amino Transf (AST/SGOT) 37 U/L (15-37) Alanine Aminotransferase (ALT/SGPT) 30 U/L (16-63) Alkaline Phosphatase 109 U/L (46-116) Creatine Kinase 47 U/L (39-308) Creatine Kinase MB (Mass) 1.8 ng/mL (0.0-3.6) Creatine Kinase MB Relative Index % (0-4) Troponin I Quantitative < 0.017 ng/mL (0.000-0.055) 0.019 ng/mL (0.000-0.055) 0.022 ng/mL (0.000-0.055) SK-Xim-C-Type Natriuretic Peptide 7941 pg/mL (0-124) Total Protein 8.8 g/dL (6.4-8.2) Albumin 3.9 g/dL (3.4-5.0) Albumin/Globulin Ratio 0.8 (1.0-1.7) Lipase 176 U/L (73-393) Allergies: Coded Allergies: lisinopril (Verified Allergy, Severe, Swelling, 01/27/17) ANGIOEDEMA Medications: Current Medications Medications (Trade) Dose Ordered Sig/Debbie Route PRN Reason Start Time Stop Time Status Last Admin Dose Admin Aspirin (Luc Aspirin) 325 mg 1X ONCE PO 10/06/18 06:30 10/06/18 06:31 DC 10/06/18 06:30 Sodium Chloride 1,000 ml @ 1,000 mls/hr 1X ONCE IV 10/06/18 06:30 10/06/18 07:29 DC 10/06/18 06:29 Diltiazem HCl (Cardizem Iv Push) 20 mg 1X ONCE IVP 10/06/18 06:30 10/06/18 06:31 DC 10/06/18 06:30 Diltiazem HCl 125 mg/Dextrose 125 ml @ 5 mls/hr 1X ONCE IV 10/06/18 07:00 10/07/18 07:59 10/06/18 06:30 Ondansetron HCl (Zofran) 4 mg PRN Q8HRS PRN IV NAUSEA/VOMITING 1ST CHOICE 10/06/18 06:15 10/07/18 06:14 10/06/18 06:29 Calcium Carbonate/ Glycine (Tums) 500 mg PRN AFTMEALHC PRN PO INDIGESTION 10/06/18 10:15 10/06/18 12:53 Folic Acid (Folic Acid) 1 mg DAILY PO 10/06/18 11:00 10/06/18 12:54 Metoprolol Tartrate (Lopressor) 25 mg BID PO 10/06/18 11:00 10/06/18 12:55 Thiamine Mononitrate (Vitamin B-1) 100 mg DAILY PO 10/06/18 11:00 10/06/18 12:53 Pantoprazole Sodium (PROTONIX VIAL for IV PUSH) 40 mg DAILYAC IVP 10/06/18 11:30 10/06/18 12:54 Diltiazem HCl (Cardizem 24hr Cd) 240 mg DAILY PO 10/06/18 12:00 10/06/18 12:55 Imaging: Imaging: CXR 10/06 IMPRESSION: Bilateral coarse interstitial opacities may secondary to chronic interstitial changes, interstitial pulmonary edema or atypical/viral infection. PE: GEN: NAD HEENT: Atraumatic, PERRL LUNGS: CTAB HEART: tachycardic ABD: NABS, S/ND, epigastric discomfort EXTREMITY: No edema SKIN: No rashes, no jaundice NEURO/PSYCH: maybe some confusion A/P: A/P: Nausea/dyspepsia, A Fib RVR, ?confusion GERD ALLI Hep C, coagulopathy, hepatic steatosis CKD CRC screen - none Cholelithiasis NSAID use -- Did have some epigastric discomfort on exam. Agree w/ PPI - can change to PO as able. Will review further Hep C workup w/ Dr. Esteban - ?repeat US, etc. ?able to order genotype as inpt Outpt 'scopes as discussed last admission. JASIEL WALSH Oct 06, 2018 14:43
[2018-10-06] MEDS ORDERED: METOPROLOL TART IMMED RELEASE 25 MG TABLET. PO SCH (21:00)
[2018-10-07 03:35] VITALS: BP 104/69
[2018-10-07 07:00] VITALS: BP 139/91
[2018-10-07] MEDS: IPRATRPIUM/ALBUTEROL 0.5/2.5MG 3 ML NEBU. NEB SCH ×2 (07:57→11:48)
[2018-10-07] MEDS ORDERED: ASPIRIN ENTERIC COATED 81 MG TABLET.DR. PO SCH (08:00)
[2018-10-07] MEDS: PANTOPRAZOLE IV PUSH 40 MG VIAL. IVP SCH (08:16)
[2018-10-07] MEDS: THIAMINE 100 MG TABLET. PO SCH (08:16)
[2018-10-07] MEDS: METOPROLOL TART IMMED RELEASE 25 MG TABLET. PO SCH (08:18)
[2018-10-07] MEDS: FOLIC ACID 1 MG TABLET. PO SCH (08:18)
--- NOTE | 2018-10-07 09:44 | PDOC ---
Subjective: Subjective: Feels good today - ate pancakes and eggs for breakfast. Objective: Vital Signs: Vital Signs Date Time Temp Pulse Resp B/P (MAP) Pulse Ox O2 Delivery O2 Flow Rate FiO2 10/07/18 08:18 96 139/91 10/07/18 08:00 Room Air 10/07/18 07:58 98 10/07/18 07:00 97.9 20 97.9 10/06/18 11:00 2.0 Labs: Laboratory Tests Test 10/06/18 12:15 Troponin I Quantitative 0.022 ng/mL PE: GEN: NAD - more perky today LUNGS: CTAB HEART: RR ABD: S/ND/NT NEURO/PSYCH: A & O x 3 A/P: Nausea/dyspepsia, h/o GERD - better, tolerating PO, on PPI ALLI Hep C, coagulopathy, hepatic steatosis A Fib -- ?EGD prior to DC - now off IV Cardizem - otherwise pursue outpt 'scopes and follow-up to discuss Hep C treatment (though non-compliant, poor candidate). Continue PPI - change to PO. JASIEL WALSH Oct 07, 2018 09:44
[2018-10-07 11:00] VITALS: BP 131/87
[2018-10-07] MEDS: CALCIUM CARBONATE 500 MG TAB.CHEW PO PRN ×2 (11:54→11:55)
--- NOTE | 2018-10-07 12:25 | PDOC3 ---
Discharge Summary Visit Information Date of Admission: Oct 06, 2018 Date of Discharge: Oct 07, 2018 Admitting Diagnosis: Afib with RVR, Encephalopathy Final Diagnosis Afib with RVR Brief Hospital Course Allergies Allergies Coded Allergies Type Severity Reaction Last Updated Verified lisinopril Allergy Severe Swelling 01/27/17 Yes Vital Signs Vital Signs Date Time Temp Pulse Resp B/P (MAP) Pulse Ox O2 Delivery O2 Flow Rate FiO2 10/07/18 11:48 99 Room Air 10/07/18 08:18 96 139/91 10/07/18 07:00 97.9 20 97.9 10/06/18 11:00 2.0 Lab Results Laboratory Tests Test 10/06/18 06:06 10/06/18 09:10 10/06/18 12:15 White Blood Count 10.3 x10^3/uL (4.0-11.0) Red Blood Count 4.82 x10^6/uL (4.30-5.70) Hemoglobin 9.6 g/dL (13.0-17.5) Hematocrit 31.3 % (39.0-53.0) Mean Corpuscular Volume 65 fL (79-100) Mean Corpuscular Hemoglobin 20 pg (25-35) Mean Corpuscular Hemoglobin Concent 31 g/dL (31-37) Red Cell Distribution Width 25.6 % (11.5-14.5) Platelet Count 267 x10^3/uL (140-400) Neutrophils (%) (Auto) 69 % (31-73) Lymphocytes (%) (Auto) 22 % (24-48) Monocytes (%) (Auto) 7 % (0-9) Eosinophils (%) (Auto) 1 % (0-3) Basophils (%) (Auto) 2 % (0-3) Neutrophils # (Auto) 7.1 x10^3uL (1.8-7.7) Lymphocytes # (Auto) 2.2 x10^3/uL (1.0-4.8) Monocytes # (Auto) 0.7 x10^3/uL (0.0-1.1) Eosinophils # (Auto) 0.1 x10^3/uL (0.0-0.7) Basophils # (Auto) 0.2 x10^3/uL (0.0-0.2) Platelet Estimate Adequate (ADEQUATE) Polychromasia Occasional Anisocytosis Mod Target Cells Occ Ovalocytes Few Prothrombin Time 17.0 SEC (11.7-14.0) Prothromb Time International Ratio 1.4 (0.8-1.1) Sodium Level 131 mmol/L (136-145) Potassium Level 3.9 mmol/L (3.5-5.1) Chloride Level 95 mmol/L (98-107) Carbon Dioxide Level 24 mmol/L (21-32) Anion Gap 12 (6-14) Blood Urea Nitrogen 29 mg/dL (8-26) Creatinine 1.4 mg/dL (0.7-1.3) Estimated GFR (Cockcroft-Gault) 51.4 BUN/Creatinine Ratio 21 (6-20) Glucose Level 126 mg/dL (70-99) Calcium Level 9.4 mg/dL (8.5-10.1) Magnesium Level 1.8 mg/dL (1.8-2.4) Total Bilirubin 1.6 mg/dL (0.2-1.0) Aspartate Amino Transf (AST/SGOT) 37 U/L (15-37) Alanine Aminotransferase (ALT/SGPT) 30 U/L (16-63) Alkaline Phosphatase 109 U/L (46-116) Creatine Kinase 47 U/L (39-308) Creatine Kinase MB (Mass) 1.8 ng/mL (0.0-3.6) Creatine Kinase MB Relative Index % (0-4) Troponin I Quantitative < 0.017 ng/mL (0.000-0.055) 0.019 ng/mL (0.000-0.055) 0.022 ng/mL (0.000-0.055) GF-Fkk-U-Type Natriuretic Peptide 7941 pg/mL (0-124) Total Protein 8.8 g/dL (6.4-8.2) Albumin 3.9 g/dL (3.4-5.0) Albumin/Globulin Ratio 0.8 (1.0-1.7) Lipase 176 U/L (73-393) Brief Hospital Course Mr Whitney is a 63yo M w/ PMHx HTN admitted with Afib with RVR report of generalized malaise and weakness over the last 24 hours. Patient reports some associated nausea early this morning. Patient also reports some dyspnea with exertion. Patient called EMS for transport to Hospital area EMS notes patient's heart rate significantly elevated up into the 160s to 180s. Patient does have a history of recently diagnosed A. fib RVR. He was very confused initially, improved after lactulose dosing and bowel movements. Was seen by GI for his abdominal pain, constipation, hep c positive. Found with large transaminitis and elevated cr last visit. Hep C viral titer positive. Required 1 u PRBC 09/11/18. Seen by cardiology as well and converted back to his oral regimen for afib, rate controlled on BB and CCB, ASA only for stroke PPX as he just had a blood transfusion. Greater than 30 minutes spent on discharge. GEN.: No apparent distress. Alert and oriented. HEENT: Head is normocephalic, atraumatic NECK: Supple, no JVD LUNGS: Clear to auscultation without rhonchi or wheezing HEART: RRR, S1, S2 present. Peripheral pulses intact ABDOMEN: Soft, nontender. Positive bowel sounds no organomegaly EXTREMITIES: Without any cyanosis, clubbing, or edema. Pedal pulses intact NEUROLOGIC: Normal speech, normal tone. A&O x 3 PSYCHIATRIC: Normal affect, normal mood. Stable SKIN: No ulcerations or rashes Discharge Information Condition at Discharge: Improved Follow Up: Weeks (2) Disposition/Orders: D/C to Home w/ HH Scheduled Aspirin (Aspirin Ec) 81 Mg Tablet.dr, 81 MG PO DAILYWBKFT for Afib for 30 Days, #30 Ref 11 Prescribed by: RESEE HENAO MD on 09/13/18 1142 Last Action: Continued on 10/06/18 1032 by SANTOS BORRERO Cyclobenzaprine Hcl (Cyclobenzaprine Hcl) 10 Mg Tablet, 1 TAB PO QHS for pain, #30 (Reported) Entered as Reported by: DOC COPPOLA on 10/06/18 0946 Last Action: New Order on 10/06/18 09 by DOC COPPOLA Folic Acid (Folic Acid) 1 Mg Tablet, 1 MG PO DAILY, #30 Prescribed by: DANIEL WOO MD on 02/07/17 1141 Last Action: Continued on 10/06/18 1048 by REESE HENAO MD Gabapentin (Gabapentin ) 300 Mg Capsule, 300 MG PO TID for NEUROGENIC PAIN, (Reported) Entered as Reported by: DOC COPPOLA on 10/06/18945 Last Action: New Order on 10/06/18945 by DOC COPPOLA Metoprolol Tartrate (Metoprolol Tartrate) 25 Mg Tablet, 25 MG PO BID for Afib for 30 Days, #60 Ref 2 Prescribed by: REESE HENAO MD on 09/13/18 114 Last Action: Continued on 10/06/181047 by REESE HENAO MD Potassium Chloride (Klor-Con M20) 20 Meq Tab.er.prt, 40 MEQ PO DAILY for Hypokalemia for 30 Days, #60 Ref 2 Prescribed by: REESE HENAO MD on 09/13/18 1142 Thiamine Mononitrate (Vitamin B-1) 100 Mg Tablet, 100 MG PO DAILY, #30 Prescribed by: DANIEL WOO MD on 02/07/17 1141 Last Action: Converted on 10/06/181047 by REESE HENAO MD [Diltiazem Hcl] 240 MG CAP.ER.24H, 240 MG PO DAILY for AFIB for 30 Days, #30 Ref 2 Prescribed by: REESE HENAO MD on 09/13/18 1142 [Pantoprazole] 40 MG TABLET.DR, 40 MG PO DAILYAC for GERD for 30 Days, #30 Ref 2 Prescribed by: REESE HENAO MD on 09/13/18 1142 Last Action: Converted on 10/06/181047 by REESE HENAO MD Scheduled PRN Calcium Carbonate (Tums) 300 Mg Tab.chew, 300 MG PO TIDAC PRN for GI SYMPTOMS, (Reported) Entered as Reported by: DOC COPPOLA on 10/06/1856 Last Action: Converted on 10/06/18 1002 by SANTOS BORRERO Hydrocodone Bit/Acetaminophen (Hydrocodone-Apap 7.5-325 ) 1 Each Tablet, 1 TAB PO PRN Q3HRS PRN for PAIN, #20 Prescribed by: DANIEL WOO MD on 02/07/17 1141 Hydroxyzine Pamoate (Hydroxyzine Pamoate) 25 Mg Capsule, 25 MG PO PRN Q8HRS PRN for ITCHING for 30 Days, #90 Ref 2 Prescribed by: REESE HENAO MD on 09/13/18 1142 Last Action: Converted on 10/06/18 1048 by MD JULIANO ATKINS CHRISTOPHER S MD Oct 07, 2018 12:25
[2018-10-07] MEDS ORDERED: LACT20SO PO (12:27)
--- NOTE | 2018-10-07 12:30 | SNU/HH DC ---
DISCHARGE WITH HOME HEALTH DISCHARGE INFORMATION: Condition on Discharge: Stable CODE STATUS: Code Status: Full HOME HEALTH: Face to Face: I certify this patient is under my care and that I, or a nurse practitioner or physician's portfolio assistant working with me, had a face to face encounter that meets the physician face to face encounter requirements with this patient on 10/07/18. Medical Complications: COPD, Other (Afib, cirrhosis) RN For Eval/Treatment: Yes Physical Therapy For: Evalulation/Treatment Occupational Therapy For: Evaluation/Treatment Home Health Aide For: Self-care Pt Meets Homebound Status: Extreme weakness w/ amb., Poor cognition POST DISCHARGE ORDERS: Activity Instructions for Disc: Activity as tolerated Weight Bearing Status after Di: As tolerated DIET AFTER DISCHARGE: Cardiac CHECKS AFTER DISCHARGE: Checks after discharge: Check blood press - daily, Check your Temp as needed FOLLOW-UP: Follow up with: Dr. Dickey in 4 weeks Follow Up With: Primary Care Physician in 1-2 weeks TREATMENT/EQUIPMENT ORDERS: Adaptive Equipment Issued: None CERTIFICATION STATEMENT: Certification Statement: Certification Statement: Based on the above finding, I certify that this patient is confined to the home and needs intermittent prison care, physical therapy and/or speech therapy, or continues to need occupational therapy.~ This patient is under my care, and I have initiated the establishment of the plan of care.~ This patient will be followed by myself or a community physician who will periodically review the plan of care. Home Meds Active Scripts Lactulose (LACTULOSE) 20 Gm/30 Ml Solution, 20 GM PO PRN TID PRN for CONSTIPATION for 30 Days, #1 MISC Prov:REESE HENAO MD 10/07/18 Potassium Chloride (KLOR-CON M20) 20 Meq Tab.er.prt, 40 MEQ PO DAILY for Hypokalemia for 30 Days, #60 TAB.SR 2 Refills Prov:REESE HENAO MD 09/13/18 [Pantoprazole] 40 MG [address]T.DR Harrington Conflict Check, 40 MG PO DAILYAC for GERD for 30 Days, #30 2 Refills Prov:REESE HENAO MD 09/13/18 Hydroxyzine Pamoate (HYDROXYZINE PAMOATE) 25 Mg Capsule, 25 MG PO PRN Q8HRS PRN for ITCHING for 30 Days, #90 CAP 2 Refills Prov:REESE HENAO MD 09/13/18 Aspirin (ASPIRIN EC) 81 Mg Tablet.dr, 81 MG PO DAILYWBKFT for Afib for 30 Days, #30 TAB.SR 11 Refills Prov:REESE HENAO MD 09/13/18 [dilTIAZem HCL] 240 MG CAP.ER.24H No Conflict Check, 240 MG PO DAILY for AFIB for 30 Days, #30 CAP.SR 2 Refills Prov:REESE HENAO MD 09/13/18 Metoprolol Tartrate (METOPROLOL TARTRATE) 25 Mg Tablet, 25 MG PO BID for Afib for 30 Days, #60 TAB 2 Refills Prov:REESE HENAO MD 09/13/18 Thiamine Mononitrate (VITAMIN B-1) 100 Mg Tablet, 100 MG PO DAILY, #30 TAB Prov:DANIEL WOO MD 02/07/17 Hydrocodone Bit/Acetaminophen (HYDROCODONE-APAP 7.5-325 ) 1 Each Tablet, 1 TAB PO PRN Q3HRS PRN for PAIN, #20 TAB Prov:DANIEL WOO MD 02/07/17 Folic Acid (FOLIC ACID) 1 Mg Tablet, 1 MG PO DAILY, #30 TAB Prov:DANIEL WOO MD 02/07/17 Reported Medications Calcium Carbonate (TUMS) 300 Mg Tab.chew, 300 MG PO TIDAC PRN for GI SYMPTOMS, TAB.CHEW 10/06/18 Cyclobenzaprine Hcl (CYCLOBENZAPRINE HCL) 10 Mg Tablet, 1 TAB PO QHS for pain, #30 TAB 10/06/18 Gabapentin (GABAPENTIN ) 300 Mg Capsule, 300 MG PO TID for NEUROGENIC PAIN, CAP 10/06/18 REESE HENAO MD Oct 07, 2018 12:30
--- NOTE | 2018-10-07 13:09 | NUR ---
Discharge Note: KEN LYMAN [address] Discharge instructions and discharge home medications reviewed with Patient and a copy given. All questions have been answered and understanding verbalized.
[2018-10-08] MEDS ORDERED: PANTOPRAZOLE 40 MG TABLET.DR. PO SCH (07:30)
--- NOTE | 2018-10-08 08:12 | NUR ---
Post dc note: LEIDA faxed home health orders to [facility]
[2018-10-18] MEDS ORDERED: AMOX1TAB11 PO (11:39)
[2018-10-18] MEDS ORDERED: ALBU2.5V8 NEB (11:39)
[2018-10-18] MEDS ORDERED: LACT1CAP19 PO (11:39)
== END 2018-10-07 13:00 | disposition home health service (06) | DRG 71 ==
LOC: ER 05:54 → 2 SOUTH 06:13
PROVIDERS: ADMIT Internal Medicine; ATTEND Internal Medicine
DX: G93.41 Metabolic encephalopathy (principal); D68.9 Coagulation defect, unspecified; I48.91 Unspecified atrial fibrillation; I12.9 Hypertensive chronic kidney disease with stage 1 through stage 4 chronic kidney disease, or unspecified chronic kidney disease; J44.9 Chronic obstructive pulmonary disease, unspecified; B19.20 Unspecified viral hepatitis C without hepatic coma; F17.210 Nicotine dependence, cigarettes, uncomplicated; K21.9 Gastro-esophageal reflux disease without esophagitis; K76.0 Fatty (change of) liver, not elsewhere classified; K80.20 Calculus of gallbladder without cholecystitis without obstruction; D64.9 Anemia, unspecified; K59.00 Constipation, unspecified; Z91.19 Patient's noncompliance with other medical treatment and regimen; N18.9 Chronic kidney disease, unspecified; F10.10 Alcohol abuse, uncomplicated; G89.29 Other chronic pain
CPT/HCPCS: 36415; 71045; 80053; 82553; 83690; 83735; 83880; 84484; 85025; 85610; 93005; 94640; 94760; 96361; 96374; C9113; J2405; J3490; J7030; J7620; Q0177; 99285-25

== ENCOUNTER 2018-10-10 21:38 | Inpatient (IN) | payer OTHER ==
[~2018-10-10] VITALS: Ht 177.8 cm; Wt 67.6 kg
[~2018-10-10 21:38] MED LIST changes: +CALC300T5 PO; +CYCL10TA2 PO; +GABA300C18 PO; +LACT20SO PO
[2018-10-10] MEDS ORDERED: IV NORMAL SALINE 1000ML BAG 1,000 ML IV ONE ×2 (22:00)
[2018-10-10] MEDS ORDERED: PIP/TAZO PER PHARMACY MC PRN ×2 (22:00→22:45)
[2018-10-10 22:09] LABS: BASE EXCESS ABG -21 mmol/L (-3-3); HCO3 ABG 5 mmol/L (21-28); PO2 ABG 134 mmHg (65-108); SAT O2 ABG 98 % (92-99)
[2018-10-10] MEDS ORDERED: PIPERACILLIN/TAZOBACTAM 3.375 GM in IV NORMAL SALINE 50ML 50 ML IV ONE (22:15)
[2018-10-10 22:16] LABS: BILIRUBIN,URINE SMALL (NEG); CLARITY,URINE CLEAR; COLOR,URINE AMBER; NITRITE,URINE NEGATIVE (NEG); PH,URINE 5.5; PROTEIN,URINE 100 mg/dL (NEG-TRACE)
[2018-10-10 22:21] LABS: PCO2 ABG < 15 mmHg (35-46)
[2018-10-10 22:22] LABS: BARBITURATES NEG (NEG); BENZODIAZEPINES NEG (NEG); CANNABINOIDS NEG (NEG); COCAINE NEG (NEG); METHADONE NEG (NEG); OPIATES NEG (NEG); PHENCYCLIDINE NEG (NEG)
[2018-10-10 22:23] LABS: AMPHETAMINE/METHAMPHETAMINE NEG (NEG)
[2018-10-10] MEDS ORDERED: CALCIUM GLUCONATE 1,000 MG/10 ML VIAL. IVP ONE (22:30)
[2018-10-10] MEDS ORDERED: SODIUM BICARB ADULT 8.4% 50 MEQ/50 ML DISP.SYRIN. IV ONE (22:30)
[2018-10-10 22:31] LABS: BACTERIA,URINE 0 /HPF (0-FEW); HYALINE CASTS, URINE MANY /HPF; SQUAMOUS EPITHELIAL CELL,UR OCC /LPF; WBC,URINE OCC /HPF (0-4)
[2018-10-10 22:43] LABS: BASO % 0 % (0-3); EOS # 0.1 x10^3/uL (0.0-0.7); EOS % 1 % (0-3); HEMATOCRIT 23.4 % (39.0-53.0); LYMPH % 7 % (24-48); MEAN CORPUSCULAR HEMOGLOBIN 20 pg (25-35); MEAN CORPUSCULAR HGB CONC 28 g/dL (31-37); MEAN CORPUSCULAR VOLUME 72 fL (79-100); MONO # 1.5 x10^3/uL (0.0-1.1); MONO % 11 % (0-9); NEUT # 11.9 x10^3uL (1.8-7.7); NEUT % 81 % (31-73); PLATELET COUNT 141 x10^3/uL (140-400); RED BLOOD COUNT 3.26 x10^6/uL (4.30-5.70); RED CELL DISTRIBUTION WIDTH 27.3 % (11.5-14.5); WHITE BLOOD COUNT 14.7 x10^3/uL (4.0-11.0)
[2018-10-10 22:46] LABS: FECAL OB PT POSITIVE (NEG)
[2018-10-10 22:51] LABS: HEMOGLOBIN 6.5 g/dL (13.0-17.5); PROTHROMBIN TIME PATIENT 52.5 SEC (11.7-14.0)
[2018-10-10 23:09] LABS: ALBUMIN 2.7 g/dL (3.4-5.0); ALBUMIN/GLOBULIN RATIO 0.9 (1.0-1.7); CALCIUM 7.7 mg/dL (8.5-10.1); CREATININE 3.6 mg/dL (0.7-1.3); GFR 17.3; POTASSIUM 5.1 mmol/L (3.5-5.1); TOTAL BILIRUBIN 2.9 mg/dL (0.2-1.0); TOTAL PROTEIN 5.8 g/dL (6.4-8.2)
[2018-10-10] MEDS ORDERED: PHYTONADIONE (VIT K1) IV 10 MG in IV DEXTROSE 5% 50 ML IV ONE (23:30)
[2018-10-10 23:32] LABS: % BANDS 9 % (0-9); % LYMPHS 7 % (24-48); % MONOS 4 % (0-10); % SEGS 80 % (35-66); NUCLEATED RBC 6
[2018-10-10] MEDS: PANTOPRAZOLE SODIUM IV DRIP 80 MG in IV NORMAL SALINE 100ML 100 ML IV SCH (23:33)
[2018-10-10 23:43] LABS: ANISOCYTOSIS MARKED; BURR CELLS MANY; HYPOCHROMIA MOD; MICROCYTOSIS MOD; OVALOCYTES FEW; PLT ESTIMATE ADEQUATE (ADEQUATE); POLYCHROMASIA SLIGHT; SCHISTOCYTES FEW
[2018-10-10] MEDS: OCTREOTIDE 500 MCG in IV NORMAL SALINE 100ML 100 ML IV PRN (23:45)
--- NOTE | 2018-10-10 23:47 | RAD ---
PQRS Compliance statement: One or more of the following individualized dose reduction techniques were utilized for this examination: 1. Automated exposure control. 2. Adjustment of the mA and/or kV according to patient size. 3. Use of iterative reconstruction technique. Indication:,. Head and neck pain. TECHNIQUE: CT head without IV contrast COMPARISON: None FINDINGS: No pathologic extra-axial or intra-axial fluid collection. Moderate diffuse atrophy with ex vacuo dilation of the ventricles. The basal cisterns are within normal limits. No acute intracranial bleed. Confluent low-attenuation is seen in the periventricular and deep white matter. No large scalp hematoma. No acute fractures. Visualized paranasal sinuses and mastoid air cells are clear. Impression: 1. No acute intracranial bleed or acute calvarial fracture. 2. Moderate atrophy with white matter changes likely secondary to chronic microvascular ischemic disease. Indication:Trauma. Head and neck pain. TECHNIQUE: CT of the cervical spine without IV contrast with multiplanar reformats. COMPARISON:None FINDINGS: The cervical spine is in normal anatomic alignment. Atlantoaxial joint interval is preserved. No compression deformity. Facet joints are in normal anatomic alignment with multilevel facet arthropathy. No acute fractures. Intervertebral disc space narrowing is seen in the C5-C6 and C6-7 level. Noncontrast soft tissues through the neck are within normal limits. IMPRESSION: 1. No acute fractures. 2. Degenerative disc disease with associated facet arthropathy. Electronically signed by: Josué Glover DO (10/10/2018 11:44 PM) [facility]
[2018-10-10 23:53] LABS: ACETAMIN 2.7 mcg/ml (10-30)
[2018-10-10] MEDS ORDERED: SODIUM BICARBONATE VIAL 50 MEQ in IV DEXTROSE 5% 1,000 ML IV ONE (23:55)
[2018-10-11] VITALS (32 sets, daily range): BP systolic 92–136; BP diastolic 53–98
--- NOTE | 2018-10-11 00:09 | RAD ---
PQRS Compliance statement: One or more of the following individualized dose reduction techniques were utilized for this examination: 1. Automated exposure control. 2. Adjustment of the mA and/or kV according to patient size. 3. Use of iterative reconstruction technique. Indication:rectal bleed; severe septic shock TECHNIQUE: CT abdomen and pelvis without IV contrast with multiplanar reformats. COMPARISON: None FINDINGS: Limited evaluation of solid abdominal and pelvic organs due to lack of IV contrast. Heart is moderately enlarged in size. Small amount of right lesion. Consolidation is seen in the right lung base. Noncontrast appearance of the liver, spleen, pancreas, adrenals within normal limits. Gallstones noted. No pericholecystic fluid. No nephrolithiasis or hydronephrosis. Couple of low attenuating lesions in the right kidney, the largest measuring 6.2 x 4.7 cm. No enlarged retroperitoneal or pelvic adenopathy. Scattered atherosclerotic plaque in the aorta. No free pelvic fluid or ascites. No bowel obstruction. Significant circumferential wall thickening is seen of the cecum measuring approximately 3 cm. Circumferential wall thickening is seen of the rectum measuring approximately 1.7 cm. Left groin catheter is seen with soft tissue emphysema in the inguinal region. No pneumoperitoneum or pneumatosis intestinalis. Urinary bladder is decompressed with Rodriguez catheter. Prostate is nonenlarged. Most likely a chronic fracture is seen of the left 10th rib. Mildly displaced fractures of the right transverse processes of the L2, L3, L4 vertebral bodies. Small sliding hiatal hernia. IMPRESSION: Limited evaluation of solid abdominal and pelvic organs due to lack of IV contrast. 1. Circumferential wall thickening of the cecum and rectum suggests focal colitis. Underlying mass not ruled out. Colonoscopy recommended. No bowel obstruction. 2. Consolidation in the right lower lobe may be secondary to passive atelectasis from the adjacent small bowel pleural effusion or pneumonia. 3. Bilateral renal lesions most likely simple cysts. Nonemergent ultrasound of the kidneys recommended. 4. Fractures of the right transverse processes of the L2-L4 vertebral bodies, age indeterminate. Clinically correlate with focal tenderness. 5. Left groin emphysema may be secondary to placement of the intravenous catheter. Clinically correlate with signs of infection. 5. Cholelithiasis. Electronically signed by: Josué Glover DO (10/11/2018 12:06 AM) [facility]
[2018-10-11 01:40] LABS: HCO3 ABG 7 mmol/L (21-28); PCO2 ABG 19 mmHg (35-46); PO2 ABG 125 mmHg (65-108)
[2018-10-11 01:41] LABS: BASE EXCESS ABG -19 mmol/L (-3-3); FIO2 ABG 40%; SAT O2 ABG 97 % (92-99)
--- NOTE | 2018-10-11 02:00 | NUR ---
ICU RNs x2 went to get patient from ER. Patient transferred via gurney to room 105. Patient attached to ICU monitors and situated. Patient on 5 L NC, afib on monitor, no complaints of pain, wheezy lungs, bowel movement upon arrival--bloody and small, Central line and [address] and patent. Blood picked up from blood bank and hung--currently running. Attempted to orient patient to unit routines, call light, tv controls, bed controls, activity (BR), and diet (NPO). Will continue to monitor patient.
--- NOTE | 2018-10-11 03:14 | PHYS DOC ---
Past Medical History Past Medical History: A-Fib, Alcoholism, Hypertension, Other Additional Past Medical Histor: CHRONIC BACK PAIN Past Surgical History: No Surgical History Additional Past Surgical Histo: UNABLE TO ASSESS Alcohol Use: Heavy Drug Use: None Adult General Chief Complaint Chief Complaint: SHORTNESS OF BREATH HPI HPI Patient is a 63 year old male who is brought in by any bloods after being found down Call for a lift assist by a neighbor patient was altered hypotensive, HYPOGLYCEMIC COULD NOT RECORD A BLOOD SUGAR, THEY CORRECTED THAT WAS 110 ON REPEAT. Patient states that he has just been feeling weak the last couple of days a little bit nauseous here and there no vomiting denies abdominal pain he was in the hospital for A. fib with RVR a few days ago and actually amazingly his labs actually look pretty good at that time Patient denies chest pain he says he might of hit his head when he fell down he remembers feeling weak He says he last drank about 3 days ago however then later he told me that he last drank several months ago so I don't feel that the history is very reliable Review of Systems Review of Systems Limited by the clinical acuity and mild change in mental status Current Medications Current Medications Current Medications Medications (Trade) Dose Ordered Sig/Debbie Start Time Stop Time Status Last Admin Dose Admin Calcium Gluconate (Calcium Gluconate) 1,000 mg 1X ONCE 10/10/18 22:30 10/10/18 22:31 DC 10/10/18 22:43 1,000 MG Piperacillin Sod/ Tazobactam Sod (Zosyn Per Pharmacy) 1 each PRN DAILY PRN 10/10/18 22:00 10/10/18 22:33 DC Piperacillin Sod/ Tazobactam Sod 3.375 gm/Sodium Chloride 50 ml @ 100 mls/hr 1X ONCE 10/10/18 22:15 10/10/18 22:44 DC 10/10/18 22:44 100 MLS/HR Sodium Bicarbonate (Sodium Bicarb Adult 8.4% Syr) 50 meq 1X ONCE 10/10/18 22:30 10/10/18 22:31 DC 10/10/18 22:43 50 MEQ Sodium Chloride 1,000 ml @ 1,000 mls/hr 1X ONCE 10/10/18 22:00 10/10/18 22:59 DC 10/10/18 22:42 1,000 MLS/HR Allergies Allergies Allergies Coded Allergies Type Severity Reaction Last Updated Verified lisinopril Allergy Severe Swelling 01/27/17 Yes Physical Exam Physical Exam Constitutional: Ill-appearing mottled skin signs HENT: Normocephalic, contusion on the forehead, bilateral external ears normal, oropharynx moist, no oral exudates, nose normal. [] Eyes: PERRLA, EOMI, conjunctiva normal, no discharge. [] Neck: Normal range of motion, no tenderness, supple, no stridor. [] Cardiovascular:Heart rate regular rhythm, difficult to assess for murmurs due to respiratory effort Lungs & Thorax: Bilateral breath sounds clear to auscultation []tachypnea does have some use of accessory muscles however no obvious wheezing was noted some faint rhonchi at the right lung base Abdomen: Bowel sounds normal, soft, no tenderness noted mottled skin signs Back: No tenderness, no CVA tenderness. [] Extremities: No tenderness, no cyanosis, no clubbing, ROM intact, 1+ edema bilaterally Neurologic: Alert and oriented X 2, normal extremities follows commands eyes open to voice pupils are equal round and reactive to light Psychologic: Difficult to assess Current Patient Data Vital Signs Vital Signs Date Time Temp Pulse Resp B/P (MAP) Pulse Ox O2 Delivery O2 Flow Rate FiO2 10/10/18 22:22 53 48 121/63 (82) 92 Nasal Cannula 5.0 10/10/18 21:38 93.6 93.6 Lab Values Laboratory Tests Test 10/10/18 21:07 10/10/18 21:57 10/10/18 22:30 Urine Collection Type Unknown Urine Color Barbara Urine Clarity Clear Urine pH 5.5 Urine Specific [place] 1.020 Urine Protein 100 mg/dL (NEG-TRACE) Urine Glucose (UA) Negative mg/dL (NEG) Urine Ketones (Stick) Trace mg/dL (NEG) Urine Blood Small (NEG) Urine Nitrite Negative (NEG) Urine Bilirubin Small (NEG) Urine Urobilinogen Dipstick 1.0 mg/dL (0.2 mg/dL) Urine Leukocyte Esterase Negative (NEG) Urine RBC 3-5 /HPF (0-2) Urine WBC Occ /HPF (0-4) Urine Squamous Epithelial Cells Occ /LPF Urine Bacteria 0 /HPF (0-FEW) Urine Hyaline Casts Many /HPF Urine Mucus Marked /LPF Urine Opiates Screen Neg (NEG) Urine Methadone Screen Neg (NEG) Urine Barbiturates Neg (NEG) Urine Phencyclidine Screen Neg (NEG) Urine Amphetamine/Methamphetamine Neg (NEG) Urine Benzodiazepines Screen Neg (NEG) Urine Cocaine Screen Neg (NEG) Urine Cannabinoids Screen Neg (NEG) Urine Ethyl Alcohol Neg (NEG) Stool Occult Blood Positive (NEG) O2 Saturation 98 % (92-99) Arterial Blood pH 7.18 (7.35-7.45) *L Arterial Blood pCO2 at Patient Temp < 15 mmHg (35-46) *L Arterial Blood pO2 at Patient Temp 134 mmHg (65-108) H Arterial Blood HCO3 5 mmol/L (21-28) L Arterial Blood Base Excess -21 mmol/L (-3-3) L White Blood Count 14.7 x10^3/uL (4.0-11.0) H Red Blood Count 3.26 x10^6/uL (4.30-5.70) L Hemoglobin 6.5 g/dL (13.0-17.5) *L Hematocrit 23.4 % (39.0-53.0) L Mean Corpuscular Volume 72 fL (79-100) #L Mean Corpuscular Hemoglobin 20 pg (25-35) L Mean Corpuscular Hemoglobin Concent 28 g/dL (31-37) L Red Cell Distribution Width 27.3 % (11.5-14.5) H Platelet Count 141 x10^3/uL (140-400) Neutrophils (%) (Auto) 81 % (31-73) H Lymphocytes (%) (Auto) 7 % (24-48) L Monocytes (%) (Auto) 11 % (0-9) H Eosinophils (%) (Auto) 1 % (0-3) Basophils (%) (Auto) 0 % (0-3) Neutrophils # (Auto) 11.9 x10^3uL (1.8-7.7) H Lymphocytes # (Auto) 1.0 x10^3/uL (1.0-4.8) Monocytes # (Auto) 1.5 x10^3/uL (0.0-1.1) H Eosinophils # (Auto) 0.1 x10^3/uL (0.0-0.7) Basophils # (Auto) 0.0 x10^3/uL (0.0-0.2) Segmented Neutrophils % 80 % (35-66) H Band Neutrophils % 9 % (0-9) Lymphocytes % 7 % (24-48) L Monocytes % 4 % (0-10) Nucleated Red Blood Cells 6 Platelet Estimate Adequate (ADEQUATE) Polychromasia Slight Hypochromasia Mod Anisocytosis Marked Microcytosis Mod Ovalocytes Few Nicol Cells Many Schistocytes Few Prothrombin Time 52.5 SEC (11.7-14.0) H Prothrombin Time INR 5.8 (0.8-1.1) *H Sodium Level 136 mmol/L (136-145) Potassium Level 5.1 mmol/L (3.5-5.1) Chloride Level 101 mmol/L (98-107) Carbon Dioxide Level 10 mmol/L (21-32) *L Anion Gap 25 (6-14) H Blood Urea Nitrogen 49 mg/dL (8-26) H Creatinine 3.6 mg/dL (0.7-1.3) H Estimated GFR (Cockcroft-Gault) 17.3 BUN/Creatinine Ratio 14 (6-20) Glucose Level 129 mg/dL (70-99) H Lactic Acid Level 14.9 mmol/L (0.4-2.0) *H Calcium Level 7.7 mg/dL (8.5-10.1) L Magnesium Level 2.1 mg/dL (1.8-2.4) Total Bilirubin 2.9 mg/dL (0.2-1.0) H Aspartate Amino Transferase (AST) 4514 U/L (15-37) H Alanine Aminotransferase (ALT) 1550 U/L (16-63) H Alkaline Phosphatase 104 U/L (46-116) Creatine Kinase 210 U/L (39-308) Troponin I Quantitative 0.073 ng/mL (0.000-0.055) XY-Rjb-X-Type Natriuretic Peptide 3776 pg/mL (0-124) H Total Protein 5.8 g/dL (6.4-8.2) L Albumin 2.7 g/dL (3.4-5.0) L Albumin/Globulin Ratio 0.9 (1.0-1.7) L Lipase 408 U/L (73-393) H Procalcitonin 0.88 ng/mL (0.00-0.10) H Acetaminophen Level 2.7 mcg/ml (10-30) L Acetaminophen Last Dose Date Unk Acetaminophen Last Dose Time Unk Ethyl Alcohol Level < 10 mg/dL (0-10) Laboratory Tests 10/10/18 22:30 Laboratory Tests 10/10/18 22:30 EKG EKG []EKG shows a normal sinus rhythm rate of 51 there are peaked T waves in the lateral leads also some ST depressions there QT interval was prolonged at [address] elevation was noted. Radiology/Procedures Radiology/Procedures [] COMPARISON: None FINDINGS: No pathologic extra-axial or intra-axial fluid collection. Moderate diffuse atrophy with ex vacuo dilation of the ventricles. The basal cisterns are within normal limits. No acute intracranial bleed. Confluent low-attenuation is seen in the periventricular and deep white matter. No large scalp hematoma. No acute fractures. Visualized paranasal sinuses and mastoid air cells are clear. Impression: 1. No acute intracranial bleed or acute calvarial fracture. 2. Moderate atrophy with white matter changes likely secondary to chronic microvascular ischemic disease. Indication:Trauma. Head and neck pain. TECHNIQUE: CT of the cervical spine without IV contrast with multiplanar reformats. COMPARISON:None FINDINGS: The cervical spine is in normal anatomic alignment. Atlantoaxial joint interval is preserved. No compression deformity. Facet joints are in normal anatomic alignment with multilevel facet arthropathy. No acute fractures. Intervertebral disc space narrowing is seen in the C5-C6 and C6-7 level. Noncontrast soft tissues through the neck are within normal limits. IMPRESSION: 1. No acute fractures. 2. Degenerative disc disease with associated facet arthropathy. Electronically signed by: Josué Glover DO (10/10/2018 11:44 PM) [facility] DICTATED and SIGNED BY: JOSUÉ GLOVER DO DATE: 10/10/18 4060 Impressions: IMPRESSION: Limited evaluation of solid abdominal and pelvic organs due to lack of IV contrast. 1. Circumferential wall thickening of the cecum and rectum suggests focal colitis. Underlying mass not ruled out. Colonoscopy recommended. No bowel obstruction. 2. Consolidation in the right lower lobe may be secondary to passive atelectasis from the adjacent small bowel pleural effusion or pneumonia. 3. Bilateral renal lesions most likely simple cysts. Nonemergent ultrasound of the kidneys recommended. 4. Fractures of the right transverse processes of the L2-L4 vertebral bodies, age indeterminate. Clinically correlate with focal tenderness. 5. Left groin emphysema may be secondary to placement of the intravenous catheter. Clinically correlate with signs of infection. 5. Cholelithiasis. Electronically signed by: Josué Glover DO (10/11/2018 12:06 AM) [facility] My dictation of the chest x-ray: INTERSTITIAL PATTERN V CHF Course & Med Decision Making Course & Med Decision Making Pertinent Labs and Imaging studies reviewed. (See chart for details) []History of A. fib hepatitis C alcoholism hypertension Presenting with acute critical illness initially was hypotensive hypoglycemic hypothermic Found to have severe metabolic acidosis lactic acid 14.9 hemoglobin 6.5 severe elevation of LFTs acute kidney injury bump in the troponin Did have evidence of some GI bleed had some red dark red stool in the emergency room approximately 200 MLS per the nursing staff no vomiting patient denies any abdominal pain. CT scan did show some evidence of basilar pneumonia. Treatment in ER patient receives 30 mL per kilo of fluid resuscitation broad- spectrum antibiotics Vanco and Zosyn, Protonix drip of octreotide drip blood transfusion 1 unit of packed red blood cells with repeat CBC ordered FFP vitamin K ordered for the coagulopathy likely related to the acute hepatic failure. At this point the etiology of the whole picture of the reason for the shock is not entirely clear septic shock is to. There acute hepatic failure is up there is a possibility patient said he has not drink alcohol in a few days. CT scan abdomen and pelvis was performed noted the cecal wall thickening however no other obvious evidence of surgical pathology this was a noncontrast CT due to renal failure I considered mesenteric ischemia however at this point time patient needs fluid resuscitation post monitoring etc. Discussed with Dr. Newell who recommended GI an ID consultation and admission to the ICU etc. Discussed with Dr. DELATORRE and we reviewed the blood gas reviewed the lab results were reviewed the clinical course to date at 12:30 AM, he felt that fluid resuscitation antibiotics blood transfusion, monitoring respiratory status in the ICU all seemed reasonable. ER clinical course: Initially patient was breathing 45-50 times a minute did have mottled skin findings and was presenting with mild altered mental status. After fluid resuscitation is skin findings improved significantly he became more alert. His respiratory rate did go down to approximately 25-30 was looking much better he did have mild increase in respiratory effort overall but it was getting better while he was in the emergency room repeat blood gas was essentia lly unchanged may be trending very slightly in the right direction.. At this point everything is okay to keep him in THE ICU, bicarbonate drip, FIX THE acidosis ETC. Lactic acid could be from septic shock could also be from profound hypovolemia from GI bleeding or other source of ischemia Critical care time was 65 minutes exclusive of procedures. Indication: Vascular access Consent: EMERGENCY PROCEDURE. Procedure: The patient was positioned appropriately and the skin over the LEFT FEMORAL VEIN was prepped and draped in a sterile fashion. Local anesthesia was used. Ultrasound guidance utilized. A large bore needle was used to identify the vein. A guide wire was then inserted into the vein through the needle. A triple lumen catheter was then inserted into the vessel over the guide wire using the Seldinger technique. All ports showed good, free flowing blood return and were flushed with saline solution. The catheter was then securely fastened to the skin with sutures and covered with a sterile dressing. The patient tolerated the procedure well. Complications: none. EMERGENT PROCEDURE initially due to lack of access inpatient severe critical illness Dragon Disclaimer Dragon Disclaimer This electronic medical record was generated, in whole or in part, using a voice recognition dictation system. Departure Departure Impression: Primary Impression: Lactic acidosis Additional Impressions: Liver failure Pneumonia Renal failure Disposition: ADMITTED INPATIENT Admitting Physician: Umberto Garcia Condition: CRITICAL Date and Time of Reassessment Date: October 11, 2018 Time: 00:30 Fluid Challenge Is the fluid challenge complet: Yes (tHANK YOU) Blood Culture TIme: 22:30 Time Antibiotics Given: 22:44 Vital Signs Vital Signs: Vital Signs Date Time Temp Pulse Resp B/P (MAP) Pulse Ox O2 Delivery O2 Flow Rate FiO2 10/10/18 22:22 53 48 121/63 (82) 92 Nasal Cannula 5.0 10/10/18 21:38 93.6 93.6 Temperature Source: Axillary Respirations Respiratory Effort: Accessory muscles, Labored Respiratory Pattern: Tachypnea Cardiovascular Pulse Rhythm: Regular Heart: Nml rate, reg. rhythm Lung Sounds Breath Sounds: Clear Capillary Refil Capillary Refill: Rt Hand < 3 seconds Peripheral Pulse Pulse Location: Radial Pulse Strength: Normal (2+) Pulse Assessment Method: NIBP Integumentary Skin: Warm, Dry (RR DOWN TO 30, IMPROVED SKIN SIGNS NO LONGER MOTTLED. PT IS MORE ALERT. ) Skin Moisture: Dry Problem Qualifiers LILLY GAO MD October 11, 2018 03:14
--- NOTE | 2018-10-11 05:03 | NUR ---
Critical lactic acid of 13.3 called by lab at 0445. Dr. Reece christensend, page returned at [phone]. Updated on patient condition and low u/o. Orders received to consult nephrology and call back after labs result this morning.
[2018-10-11] MEDS ORDERED: PIPERACILLIN/TAZOBACTAM 2.25 GM in IV NORMAL SALINE 50ML 50 ML IV SCH (06:00)
[2018-10-11 06:04] LABS: BASO % 0 % (0-3); EOS # 0.1 x10^3/uL (0.0-0.7); EOS % 1 % (0-3); HEMATOCRIT 28.4 % (39.0-53.0); HEMOGLOBIN 8.4 g/dL (13.0-17.5); LYMPH % 8 % (24-48); MEAN CORPUSCULAR HEMOGLOBIN 21 pg (25-35); MEAN CORPUSCULAR HGB CONC 30 g/dL (31-37); MEAN CORPUSCULAR VOLUME 71 fL (79-100); MONO % 8 % (0-9); NEUT # 9.9 x10^3uL (1.8-7.7); NEUT % 82 % (31-73); PLATELET COUNT 146 x10^3/uL (140-400); RED BLOOD COUNT 4.01 x10^6/uL (4.30-5.70); RED CELL DISTRIBUTION WIDTH 27.6 % (11.5-14.5)
--- NOTE | 2018-10-11 06:31 | PDOC ---
PROGRESS NOTES History of Present Illness History of Present Illness impression critical care progress note========= 1.Severe septic shock 2.Shock liver 3 Circumferential wall thickening of the cecum and rectum suggests focal colitis. Underlying mass not ruled out. Colonoscopy recommended. No bowel obstruction. 4 Consolidation in the right lower lobe may be secondary to passive atelectasis from the adjacent small bowel pleural effusion aspiration pneumonia. 5. Fractures of the right transverse processes of the L2-L4 vertebral bodies, age indeterminate. Clinically correlate with focal tenderness. 6. Left groin emphysema may be secondary to placement of the intravenous catheter. Clinically correlate with signs of infection. 6. Cholelithiasis. 7. hx severe alcohol abuse 8. metabolic acidosis, severe 9. Hep C viral titer positive. Given compliance issues, seems not a good candidate for anti-HCV treatment 10. cardiomegaly, recent echo 09/26 c/w The Ejection Fraction was estimated at 50%. Septal motion consistent with conduction abnormality. There is no significant aortic valvular stenosis. Doppler and Color Flow revealed no significant aortic regurgitation. Doppler and Color-flow revealed mild to moderate mitral regurgitation. 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 anemia, prob GI BLEED 13. hypothermia 14. hypoxic resp failure 15. coagulopathy 16. TOBACCO ABUSE/ COPD 17. Metabolic toxic encephalopathy 18. Afib 19. microcytic anemia 20. Moderate atrophy with white matter changes likely secondary to chronic microvascular ischemic disease.on ct head 21. Interstitial pulmonary edema or atypical/viral infection. plan icu bed nephrology consult GI consult ID consult pulm consult panculture add iv merem pending ID consult abd sono stat iv thiamine, folic acid Protonix drip neurology consult FFP GIVEN IN ER npo until GI SEES levaquin 250 mg iv x 1 cardiology consult overall poor prognosis 105 min cc time, DR Pham to see as well today Vitals Vitals Vital Signs Date Time Temp Pulse Resp B/P (MAP) Pulse Ox O2 Delivery O2 Flow Rate FiO2 10/11/18 06:00 67 30 108/78 (88) 100 Nasal Cannula 5.0 10/11/18 05:32 97.5 97.5 Physical Exam Physical Exam Constitutional: Ill-appearing mottled skin signs improved HENT: Normocephalic, contusion on the forehead, bilateral external ears normal, oropharynx moist, no oral exudates, nose normal. [] Eyes: PERRLA, EOMI, conjunctiva normal, no discharge. [] Neck: Normal range of motion, no tenderness, supple, no stridor. [] Cardiovascular:Heart rate irregular rhythm, difficult to assess for murmurs due to respiratory effort Lungs & Thorax: Bilateral breath sounds clear to auscultation []tachypnea does have some use of accessory muscles however no obvious wheezing was noted some rhonchi at the right lung base Abdomen: Bowel sounds normal, soft, mild tenderness noted mottled skin signs Back: No tenderness, no CVA tenderness. [] Extremities: No tenderness, no cyanosis, no clubbing, ROM intact, 1+ edema bilaterally capillary refill 2 sec Neurologic: Alert and oriented X 2, normal extremities follows commands eyes open to voice pupils are equal round and reactive to light, yells at nurses for needs, knows he is at [facility] General: Cooperative, moderate distress Lungs: Clear, Crackles Extremities: No cyanosis Labs LABS Indication:Shortness of breath TECHNIQUE:Portable AP chest X-ray COMPARISON: 10/06/2018 FINDINGS: Heart is moderately enlarged in size. Diffuse bilateral interstitial opacities. No focal consolidation. No pneumothorax or effusion. Visualized bony thorax within normal limits. IMPRESSION: Interstitial pulmonary edema or atypical/viral infection. Electronically signed by: Josué Glover DO (10/11/2018 6:30 AM) [facility] PROC[facility]: CT HEAD AND CERVICAL SPINE [facility] Compliance statement: One or more of the following individualized dose reduction techniques were utilized for this examination: 1. Automated exposure control. 2. Adjustment of the mA and/or kV according to patient size. 3. Use of iterative reconstruction technique. Indication:,. Head and neck pain. TECHNIQUE: CT head without IV contrast COMPARISON: None FINDINGS: No pathologic extra-axial or intra-axial fluid collection. Moderate diffuse atrophy with ex vacuo dilation of the ventricles. The basal cisterns are within normal limits. No acute intracranial bleed. Confluent low-attenuation is seen in the periventricular and deep white matter. No large scalp hematoma. No acute fractures. Visualized paranasal sinuses and mastoid air cells are clear. Impression: 1. No acute intracranial bleed or acute calvarial fracture. 2. Moderate atrophy with white matter changes likely secondary to chronic microvascular ischemic disease. Indication:Trauma. Head and neck pain. TECHNIQUE: CT of the cervical spine without IV contrast with multiplanar reformats. COMPARISON:None FINDINGS: The cervical spine is in normal anatomic alignment. Atlantoaxial joint interval is preserved. No compression deformity. Facet joints are in normal anatomic alignment with multilevel facet arthropathy. No acute fractures. Intervertebral disc space narrowing is seen in the C5-C6 and C6-7 level. Noncontrast soft tissues through the neck are within normal limits. IMPRESSION: 1. No acute fractures. 2. Degenerative disc disease with associated facet arthropathy. Electronically signed by: Josué Glover DO (10/10/2018 11:44 PM) [facility] DICTATED and SIGNED BY: JOSUÉ GLOVER DO DATE: 10/10/18 1316 LEFT VENTRICLE The left ventricle is normal size. There is normal left ventricular wall t hickness. Left ventricle systolic function is low normal. The Ejection Fraction is estimated at 50%. Septal motion consistent with conduction abnormality. RIGHT VENTRICLE The right ventricle is normal size. The right ventricular systolic function is normal. ATRIA The left atrium is mildly dilated. The right atrium is mildly dilated. The interatrial septum is intact with no evidence for an atrial septal defect or patent foramen ovale as noted on 2-D or Doppler imaging. AORTIC VALVE The aortic valve is calcified but opens well. Doppler and Color Flow revealed no significant aortic regurgitation. There is no significant aortic valvular stenosis. MITRAL VALVE The mitral valve is calcified but opens well. Mitral annular calcification is mild. There is no evidence of mitral valve prolapse. There is no mitral valve stenosis. Doppler and Color-flow revealed mild to moderate mitral regurgitation. TRICUSPID VALVE The tricuspid valve is normal in structure and function. Doppler and Color Flow revealed mild tricuspid regurgitation. There is moderate pulmonary hypertension. The PA pressure was estimated at 40 mmHg. There is no tricuspid valve stenosis. PULMONIC VALVE The pulmonary valve is normal in structure and function. Doppler and Color Flow revealed mild pulmonic valvular regurgitation. There is no pulmonic valvular stenosis. GREAT VESSELS The aortic root is normal in size. The ascending aorta is normal in size. The IVC is dilated and collapses >50% with inspiration. PERICARDIAL EFFUSION There is no evidence of significant pericardial effusion. Critical Notification Critical Value: No <Conclusion> The left ventricle is normal size. Left ventricle systolic function is low normal. The Ejection Fraction is estimated at 50%. Septal motion consistent with conduction abnormality. There is no significant aortic valvular stenosis. Doppler and Color Flow revealed no significant aortic regurgitation. Doppler and Color-flow revealed mild to moderate mitral regurgitation. Doppler and Color Flow revealed mild tricuspid regurgitation. There is moderate pulmonary hypertension. The PA pressure was estimated at 40 mmHg. Signed by : Robin Adam MD Electronically Approved : 09/10/2018 11:48:42 sTATUS: ADM IN ORD. PHYSICIAN: LILLY GAO MD REASON: rectal bleeding, severe septic shock PROCEDURE: CT ABDOMEN PELVIS WO CONTRAST PQRS Compliance statement: One or more of the following individualized dose reduction techniques were utilized for this examination: 1. Automated exposure control. 2. Adjustment of the mA and/or kV according to patient size. 3. Use of iterative reconstruction technique. Indication:rectal bleed; severe septic shock TECHNIQUE: CT abdomen and pelvis without IV contrast with multiplanar reformats. COMPARISON: None FINDINGS: Limited evaluation of solid abdominal and pelvic organs due to lack of IV contrast. Heart is moderately enlarged in size. Small amount of right lesion. Consolidation is seen in the right lung base. Noncontrast appearance of the liver, spleen, pancreas, adrenals within normal limits. Gallstones noted. No pericholecystic fluid. No nephrolithiasis or hydronephrosis. Couple of low attenuating lesions in the right kidney, the largest measuring 6.2 x 4.7 cm. No enlarged retroperitoneal or pelvic adenopathy. Scattered atherosclerotic plaque in the aorta. No free pelvic fluid or ascites. No bowel obstruction. Significant circumferential wall thickening is seen of the cecum measuring approximately 3 cm. Circumferential wall thickening is seen of the rectum measuring approximately 1.7 cm. Left groin catheter is seen with soft tissue emphysema in the inguinal region. No pneumoperitoneum or pneumatosis intestinalis. Urinary bladder is decompressed with Rodriguez catheter. Prostate is nonenlarged. Most likely a chronic fracture is seen of the left 10th rib. Mildly displaced fractures of the right transverse processes of the L2, L3, L4 vertebral bodies. Small sliding hiatal hernia. IMPRESSION: Limited evaluation of solid abdominal and pelvic organs due to lack of IV contrast. 1. Circumferential wall thickening of the cecum and rectum suggests focal colitis. Underlying mass not ruled out. Colonoscopy recommended. No bowel obstruction. 2. Consolidation in the right lower lobe may be secondary to passive atelectasis from the adjacent small bowel pleural effusion or pneumonia. 3. Bilateral renal lesions most likely simple cysts. Nonemergent ultrasound of the kidneys recommended. 4. Fractures of the right transverse processes of the L2-L4 vertebral bodies, age indeterminate. Clinically correlate with focal tenderness. 5. Left groin emphysema may be secondary to placement of the intravenous catheter. Clinically correlate with signs of infection. 5. Cholelithiasis. Electronically signed by: Josué Glover DO (10/11/2018 12:06 AM) [facility] Laboratory Tests Test 10/10/18 21:07 10/10/18 21:45 10/10/18 21:57 10/10/18 22:30 Urine Collection Type Unknown Urine Color Barbara Urine Clarity Clear Urine pH 5.5 Urine Specific [place] 1.020 Urine Protein 100 mg/dL (NEG-TRACE) Urine Glucose (UA) Negative mg/dL (NEG) Urine Ketones (Stick) Trace mg/dL (NEG) Urine Blood Small (NEG) Urine Nitrite Negative (NEG) Urine Bilirubin Small (NEG) Urine Urobilinogen Dipstick 1.0 mg/dL (0.2 mg/dL) Urine Leukocyte Esterase Negative (NEG) Urine RBC 3-5 /HPF (0-2) Urine WBC Occ /HPF (0-4) Urine Squamous Epithelial Cells Occ /LPF Urine Bacteria 0 /HPF (0-FEW) Urine Hyaline Casts Many /HPF Urine Mucus Marked /LPF Urine Opiates Screen Neg (NEG) Urine Methadone Screen Neg (NEG) Urine Barbiturates Neg (NEG) Urine Phencyclidine Screen Neg (NEG) Urine Amphetamine/Methamphetamine Neg (NEG) Urine Benzodiazepines Screen Neg (NEG) Urine Cocaine Screen Neg (NEG) Urine Cannabinoids Screen Neg (NEG) Urine Ethyl Alcohol Neg (NEG) Glucose (Fingerstick) 137 mg/dL (70-99) Stool Occult Blood Positive (NEG) O2 Saturation 98 % (92-99) Arterial Blood pH 7.18 (7.35-7.45) Arterial Blood pCO2 at Patient Temp < 15 mmHg (35-46) Arterial Blood pO2 at Patient Temp 134 mmHg (65-108) Arterial Blood HCO3 5 mmol/L (21-28) Arterial Blood Base Excess -21 mmol/L (-3-3) White Blood Count 14.7 x10^3/uL (4.0-11.0) Red Blood Count 3.26 x10^6/uL (4.30-5.70) Hemoglobin 6.5 g/dL (13.0-17.5) Hematocrit 23.4 % (39.0-53.0) Mean Corpuscular Volume 72 fL (79-100) Mean Corpuscular Hemoglobin 20 pg (25-35) Mean Corpuscular Hemoglobin Concent 28 g/dL (31-37) Red Cell Distribution Width 27.3 % (11.5-14.5) Platelet Count 141 x10^3/uL (140-400) Neutrophils (%) (Auto) 81 % (31-73) Lymphocytes (%) (Auto) 7 % (24-48) Monocytes (%) (Auto) 11 % (0-9) Eosinophils (%) (Auto) 1 % (0-3) Basophils (%) (Auto) 0 % (0-3) Neutrophils # (Auto) 11.9 x10^3uL (1.8-7.7) Lymphocytes # (Auto) 1.0 x10^3/uL (1.0-4.8) Monocytes # (Auto) 1.5 x10^3/uL (0.0-1.1) Eosinophils # (Auto) 0.1 x10^3/uL (0.0-0.7) Basophils # (Auto) 0.0 x10^3/uL (0.0-0.2) Segmented Neutrophils % 80 % (35-66) Band Neutrophils % 9 % (0-9) Lymphocytes % 7 % (24-48) Monocytes % 4 % (0-10) Nucleated Red Blood Cells 6 Platelet Estimate Adequate (ADEQUATE) Polychromasia Slight Hypochromasia Mod Anisocytosis Marked Microcytosis Mod Ovalocytes Few [place] Cells Many Schistocytes Few Prothrombin Time 52.5 SEC (11.7-14.0) Prothromb Time International Ratio 5.8 (0.8-1.1) Sodium Level 136 mmol/L (136-145) Potassium Level 5.1 mmol/L (3.5-5.1) Chloride Level 101 mmol/L (98-107) Carbon Dioxide Level 10 mmol/L (21-32) Anion Gap 25 (6-14) Blood Urea Nitrogen 49 mg/dL (8-26) Creatinine 3.6 mg/dL (0.7-1.3) Estimated GFR (Cockcroft-Gault) 17.3 BUN/Creatinine Ratio 14 (6-20) Glucose Level 129 mg/dL (70-99) Lactic Acid Level 14.9 mmol/L (0.4-2.0) Calcium Level 7.7 mg/dL (8.5-10.1) Magnesium Level 2.1 mg/dL (1.8-2.4) Total Bilirubin 2.9 mg/dL (0.2-1.0) Aspartate Amino Transf (AST/SGOT) 4514 U/L (15-37) Alanine Aminotransferase (ALT/SGPT) 1550 U/L (16-63) Alkaline Phosphatase 104 U/L (46-116) Creatine Kinase 210 U/L (39-308) Troponin I Quantitative 0.073 ng/mL (0.000-0.055) HB-Wai-H-Type Natriuretic Peptide 3776 pg/mL (0-124) Total Protein 5.8 g/dL (6.4-8.2) Albumin 2.7 g/dL (3.4-5.0) Albumin/Globulin Ratio 0.9 (1.0-1.7) Lipase 408 U/L (73-393) Procalcitonin 0.88 ng/mL (0.00-0.10) Acetaminophen Level 2.7 mcg/ml (10-30) Acetaminophen Last Dose Date Unk Acetaminophen Last Dose Time Unk Ethyl Alcohol Level < 10 mg/dL (0-10) Test 10/10/18 22:56 10/10/18 23:41 10/11/18 00:45 10/11/18 02:00 Glucose (Fingerstick) 111 mg/dL (70-99) Ammonia 28 mcmol/L (11-34) O2 Saturation 97 % (92-99) Arterial Blood pH 7.19 (7.35-7.45) Arterial Blood pCO2 at Patient Temp 19 mmHg (35-46) Arterial Blood pO2 at Patient Temp 125 mmHg (65-108) Arterial Blood HCO3 7 mmol/L (21-28) Arterial Blood Base Excess -19 mmol/L (-3-3) FiO2 40% Lactic Acid Level 13.3 mmol/L (0.4-2.0) Test 10/11/18 05:40 White Blood Count 12.0 x10^3/uL (4.0-11.0) Red Blood Count 4.01 x10^6/uL (4.30-5.70) Hemoglobin 8.4 g/dL (13.0-17.5) Hematocrit 28.4 % (39.0-53.0) Mean Corpuscular Volume 71 fL (79-100) Mean Corpuscular Hemoglobin 21 pg (25-35) Mean Corpuscular Hemoglobin Concent 30 g/dL (31-37) Red Cell Distribution Width 27.6 % (11.5-14.5) Platelet Count 146 x10^3/uL (140-400) Neutrophils (%) (Auto) 82 % (31-73) Lymphocytes (%) (Auto) 8 % (24-48) Monocytes (%) (Auto) 8 % (0-9) Eosinophils (%) (Auto) 1 % (0-3) Basophils (%) (Auto) 0 % (0-3) Neutrophils # (Auto) 9.9 x10^3uL (1.8-7.7) Lymphocytes # (Auto) 1.0 x10^3/uL (1.0-4.8) Monocytes # (Auto) 1.0 x10^3/uL (0.0-1.1) Eosinophils # (Auto) 0.1 x10^3/uL (0.0-0.7) Basophils # (Auto) 0.0 x10^3/uL (0.0-0.2) Assessment and Plan Assessmemt and Plan Problems Medical Problems: (1) Lactic acidosis Status: Acute (2) Liver failure Status: Acute (3) Pneumonia Status: Acute (4) Renal failure Status: Acute Past Medical History Past Medical History Past Medical History: A-Fib, Alcoholism, Hypertension, Other Additional Past Medical Histor: CHRONIC BACK PAIN Past Surgical History: No Surgical History Additional Past Surgical Histo: UNABLE TO ASSESS Alcohol Use: Heavy Drug Use: None Past Medical/Surgical History: PMH/PSH: PMHx - HTN, afib Past Surgical History: Other (Closed reduction and intramedullary nailing of left intertrochanteric hip fracture) Allergies: Allergies: Coded Allergies: lisinopril (Verified Allergy, Severe, Swelling, 01/27/17) ANGIOEDEMA Family History: Family History: AFIB- brother Social History: Social Hisoty: Smoke: 1 pack per day ALCOHOL: other (long-stading h/o ETOH (7-8 beers per day) Quit last year) Drugs: None Comment Review of Relevant I have reviewed the following items daysi (where applicable) has been applied. Labs Laboratory Tests Test 10/10/18 21:07 10/10/18 21:45 10/10/18 21:57 10/10/18 22:30 Urine Collection Type Unknown Urine Color Barbara Urine Clarity Clear Urine pH 5.5 Urine Specific [place] 1.020 Urine Protein 100 mg/dL (NEG-TRACE) Urine Glucose (UA) Negative mg/dL (NEG) Urine Ketones (Stick) Trace mg/dL (NEG) Urine Blood Small (NEG) Urine Nitrite Negative (NEG) Urine Bilirubin Small (NEG) Urine Urobilinogen Dipstick 1.0 mg/dL (0.2 mg/dL) Urine Leukocyte Esterase Negative (NEG) Urine RBC 3-5 /HPF (0-2) Urine WBC Occ /HPF (0-4) Urine Squamous Epithelial Cells Occ /LPF Urine Bacteria 0 /HPF (0-FEW) Urine Hyaline Casts Many /HPF Urine Mucus Marked /LPF Urine Opiates Screen Neg (NEG) Urine Methadone Screen Neg (NEG) Urine Barbiturates Neg (NEG) Urine Phencyclidine Screen Neg (NEG) Urine Amphetamine/Methamphetamine Neg (NEG) Urine Benzodiazepines Screen Neg (NEG) Urine Cocaine Screen Neg (NEG) Urine Cannabinoids Screen Neg (NEG) Urine Ethyl Alcohol Neg (NEG) Glucose (Fingerstick) 137 mg/dL (70-99) Stool Occult Blood Positive (NEG) O2 Saturation 98 % (92-99) Arterial Blood pH 7.18 (7.35-7.45) Arterial Blood pCO2 at Patient Temp < 15 mmHg (35-46) Arterial Blood pO2 at Patient Temp 134 mmHg (65-108) Arterial Blood HCO3 5 mmol/L (21-28) Arterial Blood Base Excess -21 mmol/L (-3-3) White Blood Count 14.7 x10^3/uL (4.0-11.0) Red Blood Count 3.26 x10^6/uL (4.30-5.70) Hemoglobin 6.5 g/dL (13.0-17.5) Hematocrit 23.4 % (39.0-53.0) Mean Corpuscular Volume 72 fL (79-100) Mean Corpuscular Hemoglobin 20 pg (25-35) Mean Corpuscular Hemoglobin Concent 28 g/dL (31-37) Red Cell Distribution Width 27.3 % (11.5-14.5) Platelet Count 141 x10^3/uL (140-400) Neutrophils (%) (Auto) 81 % (31-73) Lymphocytes (%) (Auto) 7 % (24-48) Monocytes (%) (Auto) 11 % (0-9) Eosinophils (%) (Auto) 1 % (0-3) Basophils (%) (Auto) 0 % (0-3) Neutrophils # (Auto) 11.9 x10^3uL (1.8-7.7) Lymphocytes # (Auto) 1.0 x10^3/uL (1.0-4.8) Monocytes # (Auto) 1.5 x10^3/uL (0.0-1.1) Eosinophils # (Auto) 0.1 x10^3/uL (0.0-0.7) Basophils # (Auto) 0.0 x10^3/uL (0.0-0.2) Segmented Neutrophils % 80 % (35-66) Band Neutrophils % 9 % (0-9) Lymphocytes % 7 % (24-48) Monocytes % 4 % (0-10) Nucleated Red Blood Cells 6 Platelet Estimate Adequate (ADEQUATE) Polychromasia Slight Hypochromasia Mod Anisocytosis Marked Microcytosis Mod Ovalocytes Few Nicol Cells Many Schistocytes Few Prothrombin Time 52.5 SEC (11.7-14.0) Prothromb Time International Ratio 5.8 (0.8-1.1) Sodium Level 136 mmol/L (136-145) Potassium Level 5.1 mmol/L (3.5-5.1) Chloride Level 101 mmol/L (98-107) Carbon Dioxide Level 10 mmol/L (21-32) Anion Gap 25 (6-14) Blood Urea Nitrogen 49 mg/dL (8-26) Creatinine 3.6 mg/dL (0.7-1.3) Estimated GFR (Cockcroft-Gault) 17.3 BUN/Creatinine Ratio 14 (6-20) Glucose Level 129 mg/dL (70-99) Lactic Acid Level 14.9 mmol/L (0.4-2.0) Calcium Level 7.7 mg/dL (8.5-10.1) Magnesium Level 2.1 mg/dL (1.8-2.4) Total Bilirubin 2.9 mg/dL (0.2-1.0) Aspartate Amino Transf (AST/SGOT) 4514 U/L (15-37) Alanine Aminotransferase (ALT/SGPT) 1550 U/L (16-63) Alkaline Phosphatase 104 U/L (46-116) Creatine Kinase 210 U/L (39-308) Troponin I Quantitative 0.073 ng/mL (0.000-0.055) OA-Cfr-Y-Type Natriuretic Peptide 3776 pg/mL (0-124) Total Protein 5.8 g/dL (6.4-8.2) Albumin 2.7 g/dL (3.4-5.0) Albumin/Globulin Ratio 0.9 (1.0-1.7) Lipase 408 U/L (73-393) Procalcitonin 0.88 ng/mL (0.00-0.10) Acetaminophen Level 2.7 mcg/ml (10-30) Acetaminophen Last Dose Date Unk Acetaminophen Last Dose Time Unk Ethyl Alcohol Level < 10 mg/dL (0-10) Test 10/10/18 22:56 10/10/18 23:41 10/11/18 00:45 10/11/18 02:00 Glucose (Fingerstick) 111 mg/dL (70-99) Ammonia 28 mcmol/L (11-34) O2 Saturation 97 % (92-99) Arterial Blood pH 7.19 (7.35-7.45) Arterial Blood pCO2 at Patient Temp 19 mmHg (35-46) Arterial Blood pO2 at Patient Temp 125 mmHg (65-108) Arterial Blood HCO3 7 mmol/L (21-28) Arterial Blood Base Excess -19 mmol/L (-3-3) FiO2 40% Lactic Acid Level 13.3 mmol/L (0.4-2.0) Test 10/11/18 05:40 White Blood Count 12.0 x10^3/uL (4.0-11.0) Red Blood Count 4.01 x10^6/uL (4.30-5.70) Hemoglobin 8.4 g/dL (13.0-17.5) Hematocrit 28.4 % (39.0-53.0) Mean Corpuscular Volume 71 fL (79-100) Mean Corpuscular Hemoglobin 21 pg (25-35) Mean Corpuscular Hemoglobin Concent 30 g/dL (31-37) Red Cell Distribution Width 27.6 % (11.5-14.5) Platelet Count 146 x10^3/uL (140-400) Neutrophils (%) (Auto) 82 % (31-73) Lymphocytes (%) (Auto) 8 % (24-48) Monocytes (%) (Auto) 8 % (0-9) Eosinophils (%) (Auto) 1 % (0-3) Basophils (%) (Auto) 0 % (0-3) Neutrophils # (Auto) 9.9 x10^3uL (1.8-7.7) Lymphocytes # (Auto) 1.0 x10^3/uL (1.0-4.8) Monocytes # (Auto) 1.0 x10^3/uL (0.0-1.1) Eosinophils # (Auto) 0.1 x10^3/uL (0.0-0.7) Basophils # (Auto) 0.0 x10^3/uL (0.0-0.2) Laboratory Tests Test 10/10/18 21:07 10/10/18 21:45 10/10/18 21:57 10/10/18 22:30 Urine Collection Type Unknown Urine Color Barbara Urine Clarity Clear Urine pH 5.5 Urine Specific [place] 1.020 Urine Protein 100 mg/dL (NEG-TRACE) Urine Glucose (UA) Negative mg/dL (NEG) Urine Ketones (Stick) Trace mg/dL (NEG) Urine Blood Small (NEG) Urine Nitrite Negative (NEG) Urine Bilirubin Small (NEG) Urine Urobilinogen Dipstick 1.0 mg/dL (0.2 mg/dL) Urine Leukocyte Esterase Negative (NEG) Urine RBC 3-5 /HPF (0-2) Urine WBC Occ /HPF (0-4) Urine Squamous Epithelial Cells Occ /LPF Urine Bacteria 0 /HPF (0-FEW) Urine Hyaline Casts Many /HPF Urine Mucus Marked /LPF Urine Opiates Screen Neg (NEG) Urine Methadone Screen Neg (NEG) Urine Barbiturates Neg (NEG) Urine Phencyclidine Screen Neg (NEG) Urine Amphetamine/Methamphetamine Neg (NEG) Urine Benzodiazepines Screen Neg (NEG) Urine Cocaine Screen Neg (NEG) Urine Cannabinoids Screen Neg (NEG) Urine Ethyl Alcohol Neg (NEG) Glucose (Fingerstick) 137 mg/dL (70-99) Stool Occult Blood Positive (NEG) O2 Saturation 98 % (92-99) Arterial Blood pH 7.18 (7.35-7.45) Arterial Blood pCO2 at Patient Temp < 15 mmHg (35-46) Arterial Blood pO2 at Patient Temp 134 mmHg (65-108) Arterial Blood HCO3 5 mmol/L (21-28) Arterial Blood Base Excess -21 mmol/L (-3-3) White Blood Count 14.7 x10^3/uL (4.0-11.0) Red Blood Count 3.26 x10^6/uL (4.30-5.70) Hemoglobin 6.5 g/dL (13.0-17.5) Hematocrit 23.4 % (39.0-53.0) Mean Corpuscular Volume 72 fL (79-100) Mean Corpuscular Hemoglobin 20 pg (25-35) Mean Corpuscular Hemoglobin Concent 28 g/dL (31-37) Red Cell Distribution Width 27.3 % (11.5-14.5) Platelet Count 141 x10^3/uL (140-400) Neutrophils (%) (Auto) 81 % (31-73) Lymphocytes (%) (Auto) 7 % (24-48) Monocytes (%) (Auto) 11 % (0-9) Eosinophils (%) (Auto) 1 % (0-3) Basophils (%) (Auto) 0 % (0-3) Neutrophils # (Auto) 11.9 x10^3uL (1.8-7.7) Lymphocytes # (Auto) 1.0 x10^3/uL (1.0-4.8) Monocytes # (Auto) 1.5 x10^3/uL (0.0-1.1) Eosinophils # (Auto) 0.1 x10^3/uL (0.0-0.7) Basophils # (Auto) 0.0 x10^3/uL (0.0-0.2) Segmented Neutrophils % 80 % (35-66) Band Neutrophils % 9 % (0-9) Lymphocytes % 7 % (24-48) Monocytes % 4 % (0-10) Nucleated Red Blood Cells 6 Platelet Estimate Adequate (ADEQUATE) Polychromasia Slight Hypochromasia Mod Anisocytosis Marked Microcytosis Mod Ovalocytes Few Nicol Cells Many Schistocytes Few Prothrombin Time 52.5 SEC (11.7-14.0) Prothromb Time International Ratio 5.8 (0.8-1.1) Sodium Level 136 mmol/L (136-145) Potassium Level 5.1 mmol/L (3.5-5.1) Chloride Level 101 mmol/L (98-107) Carbon Dioxide Level 10 mmol/L (21-32) Anion Gap 25 (6-14) Blood Urea Nitrogen 49 mg/dL (8-26) Creatinine 3.6 mg/dL (0.7-1.3) Estimated GFR (Cockcroft-Gault) 17.3 BUN/Creatinine Ratio 14 (6-20) Glucose Level 129 mg/dL (70-99) Lactic Acid Level 14.9 mmol/L (0.4-2.0) Calcium Level 7.7 mg/dL (8.5-10.1) Magnesium Level 2.1 mg/dL (1.8-2.4) Total Bilirubin 2.9 mg/dL (0.2-1.0) Aspartate Amino Transf (AST/SGOT) 4514 U/L (15-37) Alanine Aminotransferase (ALT/SGPT) 1550 U/L (16-63) Alkaline Phosphatase 104 U/L (46-116) Creatine Kinase 210 U/L (39-308) Troponin I Quantitative 0.073 ng/mL (0.000-0.055) KQ-Zor-Q-Type Natriuretic Peptide 3776 pg/mL (0-124) Total Protein 5.8 g/dL (6.4-8.2) Albumin 2.7 g/dL (3.4-5.0) Albumin/Globulin Ratio 0.9 (1.0-1.7) Lipase 408 U/L (73-393) Procalcitonin 0.88 ng/mL (0.00-0.10) Acetaminophen Level 2.7 mcg/ml (10-30) Acetaminophen Last Dose Date Unk Acetaminophen Last Dose Time Unk Ethyl Alcohol Level < 10 mg/dL (0-10) Test 10/10/18 22:56 10/10/18 23:41 10/11/18 00:45 10/11/18 02:00 Glucose (Fingerstick) 111 mg/dL (70-99) Ammonia 28 mcmol/L (11-34) O2 Saturation 97 % (92-99) Arterial Blood pH 7.19 (7.35-7.45) Arterial Blood pCO2 at Patient Temp 19 mmHg (35-46) Arterial Blood pO2 at Patient Temp 125 mmHg (65-108) Arterial Blood HCO3 7 mmol/L (21-28) Arterial Blood Base Excess -19 mmol/L (-3-3) FiO2 40% Lactic Acid Level 13.3 mmol/L (0.4-2.0) Test 10/11/18 05:40 White Blood Count 12.0 x10^3/uL (4.0-11.0) Red Blood Count 4.01 x10^6/uL (4.30-5.70) Hemoglobin 8.4 g/dL (13.0-17.5) Hematocrit 28.4 % (39.0-53.0) Mean Corpuscular Volume 71 fL (79-100) Mean Corpuscular Hemoglobin 21 pg (25-35) Mean Corpuscular Hemoglobin Concent 30 g/dL (31-37) Red Cell Distribution Width 27.6 % (11.5-14.5) Platelet Count 146 x10^3/uL (140-400) Neutrophils (%) (Auto) 82 % (31-73) Lymphocytes (%) (Auto) 8 % (24-48) Monocytes (%) (Auto) 8 % (0-9) Eosinophils (%) (Auto) 1 % (0-3) Basophils (%) (Auto) 0 % (0-3) Neutrophils # (Auto) 9.9 x10^3uL (1.8-7.7) Lymphocytes # (Auto) 1.0 x10^3/uL (1.0-4.8) Monocytes # (Auto) 1.0 x10^3/uL (0.0-1.1) Eosinophils # (Auto) 0.1 x10^3/uL (0.0-0.7) Basophils # (Auto) 0.0 x10^3/uL (0.0-0.2) Medications Current Medications Sodium Chloride 1,000 ml @ 1,000 mls/hr 1X ONCE IV Last administered on 10/10/18at 22:43; Start 10/10/18 at 22:00; Stop 10/10/18 at 22:59; Status DC Sodium Chloride 1,000 ml @ 1,000 mls/hr 1X ONCE IV Last administered on 10/10/18at 22:42; Start 10/10/18 at 22:00; Stop 10/10/18 at 22:59; Status DC Piperacillin Sod/ Tazobactam Sod (Zosyn Per Pharmacy) 1 each PRN DAILY PRN MC SEE COMMENTS; Start 10/10/18 at 22:00; Stop 10/10/18 at 22:33; Status DC Piperacillin Sod/ Tazobactam Sod 3.375 gm/Sodium Chloride 50 ml @ 100 mls/hr 1X ONCE IV Last administered on 10/10/18at 22:44; Start 10/10/18 at 22:15; Stop 10/10/18 at 22:44; Status DC Sodium Bicarbonate (Sodium Bicarb Adult 8.4% Syr) 50 meq 1X ONCE IV Last administered on 10/10/18at 22:43; Start 10/10/18 at 22:30; Stop 10/10/18 at 22:31; Status DC Calcium Gluconate (Calcium Gluconate) 1,000 mg 1X ONCE IVP Last administered on 10/10/18at 22:43; Start 10/10/18 at 22:30; Stop 10/10/18 at 22:31; Status DC Piperacillin Sod/ Tazobactam Sod (Zosyn Per Pharmacy) 1 each PRN DAILY PRN MC SEE COMMENTS; Start 10/10/18 at 22:45 Pantoprazole Sodium 80 mg/ Sodium Chloride 100 ml @ 10 mls/hr Q10H IV Last administered on 10/10/18at 23:33; Start 10/10/18 at 23:30 Phytonadione 10 mg/Dextrose 51 ml @ 102 mls/hr 1X ONCE IV Last administered on 10/10/18at 23:46; Start 10/10/18 at 23:30; Stop 10/10/18 at 23:59; Status DC Octreotide Acetate 500 mcg/ Sodium Chloride 101 ml @ 0 mls/hr CONT PRN IV SEE I/O RECORD Last administered on 10/10/18at 23:45; Start 10/10/18 at 23:45 Sodium Bicarbonate 50 meq/Dextrose 1,050 ml @ 125 mls/hr 1X ONCE IV Last administered on 10/11/18at 00:01; Start 10/10/18 at 23:55; Stop 10/11/18 at 08:18 Piperacillin Sod/ Tazobactam Sod 2.25 gm/Sodium Chloride 50 ml @ 100 mls/hr Q6HRS IV Last administered on 10/11/18at 05:30; Start 10/11/18 at 06:00 Active Scripts Active Lactulose 20 Gm/30 Ml Solution 20 Gm PO PRN TID PRN 30 Days Klor-Con M20 (Potassium Chloride) 20 Meq Tab.er.prt 40 Meq PO DAILY 30 Days [Pantoprazole] 40 MG Tablet.dr 40 Mg PO DAILYAC 30 Days Hydroxyzine Pamoate 25 Mg Capsule 25 Mg PO PRN Q8HRS PRN 30 Days Aspirin Ec (Aspirin) 81 Mg Tablet.dr 81 Mg PO DAILYWBKFT 30 Days [Diltiazem Hcl] 240 MG Cap.er.24h 240 Mg PO DAILY 30 Days Metoprolol Tartrate 25 Mg Tablet 25 Mg PO BID 30 Days Vitamin B-1 (Thiamine Mononitrate) 100 Mg Tablet 100 Mg PO DAILY Hydrocodone-Apap 7.5-325 (Hydrocodone Bit/Acetaminophen) 1 Each Tablet 1 Tab PO PRN Q3HRS PRN Folic Acid 1 Mg Tablet 1 Mg PO DAILY Reported Tums (Calcium Carbonate) 300 Mg Tab.chew 300 Mg PO TIDAC PRN Cyclobenzaprine Hcl 10 Mg Tablet 1 Tab PO QHS Gabapentin (Gabapentin) 300 Mg Capsule 300 Mg PO TID Vitals/I & O Vital Sign - Last 24 Hours 10/10/18 10/10/18 10/10/18 10/10/18 21:38 22:02 22:12 22:22 Temp 93.6 93.6 Pulse 49 52 54 53 Resp 48 46 42 48 B/P (MAP) 113/60 (77) 121/64 (83) 127/54 (78) 121/63 (82) Pulse Ox 96 93 94 92 O2 Delivery Nasal Cannula Nasal Cannula Nasal Cannula Nasal Cannula O2 Flow Rate 4.0 5.0 5.0 5.0 10/10/18 10/10/18 10/10/18 10/10/18 22:40 22:49 22:56 23:20 Pulse 54 50 52 54 Resp 46 42 38 36 B/P (MAP) 140/84 (102) 133/65 (87) 140/65 (90) 116/72 (87) Pulse Ox 94 95 94 95 O2 Delivery Nasal Cannula Nasal Cannula Nasal Cannula Nasal Cannula O2 Flow Rate 5.0 5.0 5.0 5.0 10/10/18 10/10/18 10/10/18 10/11/18 23:36 23:51 23:56 00:06 Temp 93.9 93.9 Pulse 54 66 64 Resp 38 34 32 B/P (MAP) 109/55 (73) 112/52 (72) 118/59 (78) Pulse Ox 94 95 94 O2 Delivery Nasal Cannula Nasal Cannula Nasal Cannula O2 Flow Rate 5.0 5.0 5.0 10/11/18 10/11/18 10/11/18 10/11/18 00:16 00:46 01:11 01:42 Temp 97.9 97.9 Pulse 58 70 80 59 Resp 32 30 28 24 B/P (MAP) 117/63 (81) 115/60 (78) 124/60 (81) 118/98 Pulse Ox 94 95 94 O2 Delivery Nasal Cannula Nasal Cannula Nasal Cannula O2 Flow Rate 5.0 5.0 5.0 10/11/18 10/11/18 10/11/18 10/11/18 01:45 01:45 01:57 02:00 Temp 97.9 97.4 97.9 97.4 Pulse 78 74 72 Resp 25 22 25 B/P (MAP) 136/59 (84) 132/61 132/61 (84) Pulse Ox 100 100 O2 Delivery Nasal Cannula Nasal Cannula Nasal Cannula O2 Flow Rate 5.0 5.0 5.0 10/11/18 10/11/18 10/11/18 10/11/18 02:15 02:30 02:45 02:57 Temp 98.4 98.4 Pulse 78 78 74 65 Resp 34 30 28 30 B/P (MAP) 92/66 (75) 100/53 (69) 102/55 (71) 102/55 Pulse Ox 100 99 100 O2 Delivery Nasal Cannula Nasal Cannula Nasal Cannula O2 Flow Rate 5.0 5.0 5.0 10/11/18 10/11/18 10/11/18 10/11/18 03:00 03:55 03:57 04:00 Temp 98.4 98.3 98.3 98.4 98.3 98.3 Pulse 64 66 73 Resp 30 18 25 B/P (MAP) 115/78 (90) 126/95 111/68 (82) Pulse Ox 100 100 O2 Delivery Nasal Cannula Nasal Cannula Nasal Cannula O2 Flow Rate 5.0 5.0 5.0 10/11/18 10/11/18 10/11/18 10/11/18 04:32 05:00 05:32 06:00 Temp 98.6 97.5 98.6 97.5 Pulse 64 68 69 67 Resp 21 25 30 30 B/P (MAP) 110/62 117/64 (81) 108/78 108/78 (88) Pulse Ox 100 100 O2 Delivery Nasal Cannula Nasal Cannula O2 Flow Rate 5.0 5.0 Intake and Output 10/10/18 10/10/18 10/11/18 15:00 23:00 07:00 Intake Total 1000 ml 2338 ml Output Total 260 ml Balance 1000 ml 2078 ml CARMELINA LAMBERT MD October 11, 2018 06:31
[2018-10-11 06:42] LABS: CREATININE 4.2 mg/dL (0.7-1.3); GFR 14.5; POTASSIUM 5.6 mmol/L (3.5-5.1)
[2018-10-11] MEDS ORDERED: ONDANSETRON PF 4 MG/2 ML VIAL. IV ONE (06:45)
[2018-10-11] MEDS ORDERED: THIAMINE INJ 100 MG in IV DEXTROSE 5% 50 ML IV ONE (07:00)
[2018-10-11 07:10] LABS: CALCIUM 8.1 mg/dL (8.5-10.1); CREATININE 4.1 mg/dL (0.7-1.3); GFR 14.9; POTASSIUM 5.6 mmol/L (3.5-5.1)
[2018-10-11] MEDS ORDERED: ALBUTEROL SULFATE 2.5 MG/3 ML NEBU. NEB PRN (07:15)
[2018-10-11 07:26] LABS: ALBUMIN 3.3 g/dL (3.4-5.0); TOTAL BILIRUBIN 3.6 mg/dL (0.2-1.0); TOTAL PROTEIN 6.6 g/dL (6.4-8.2)
--- NOTE | 2018-10-11 07:54 | EKG ---
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
[2018-10-11 08:29] LABS: SALIC < 2.8 mg/dL (2.8-20.0)
--- NOTE | 2018-10-11 08:31 | PDOC ---
Infectious Disease Note Vital Sign Vital Signs Vital Signs Date Time Temp Pulse Resp B/P (MAP) Pulse Ox O2 Delivery O2 Flow Rate FiO2 10/11/18 06:00 67 30 108/78 (88) 100 Nasal Cannula 5.0 10/11/18 05:32 97.5 97.5 Physical Exam PHYSICAL EXAM Labs Lab Laboratory Tests Test 10/10/18 21:07 10/10/18 21:45 10/10/18 21:57 10/10/18 22:30 Urine Collection Type Unknown Urine Color [place] Urine Clarity Clear Urine pH 5.5 Urine Specific [place] 1.020 Urine Protein 100 mg/dL (NEG-TRACE) Urine Glucose (UA) Negative mg/dL (NEG) Urine Ketones (Stick) Trace mg/dL (NEG) Urine Blood Small (NEG) Urine Nitrite Negative (NEG) Urine Bilirubin Small (NEG) Urine Urobilinogen Dipstick 1.0 mg/dL (0.2 mg/dL) Urine Leukocyte Esterase Negative (NEG) Urine RBC 3-5 /HPF (0-2) Urine WBC Occ /HPF (0-4) Urine Squamous Epithelial Cells Occ /LPF Urine Bacteria 0 /HPF (0-FEW) Urine Hyaline Casts Many /HPF Urine Mucus Marked /LPF Urine Opiates Screen Neg (NEG) Urine Methadone Screen Neg (NEG) Urine Barbiturates Neg (NEG) Urine Phencyclidine Screen Neg (NEG) Urine Amphetamine/Methamphetamine Neg (NEG) Urine Benzodiazepines Screen Neg (NEG) Urine Cocaine Screen Neg (NEG) Urine Cannabinoids Screen Neg (NEG) Urine Ethyl Alcohol Neg (NEG) Glucose (Fingerstick) 137 mg/dL (70-99) Stool Occult Blood Positive (NEG) O2 Saturation 98 % (92-99) Arterial Blood pH 7.18 (7.35-7.45) Arterial Blood pCO2 at Patient Temp < 15 mmHg (35-46) Arterial Blood pO2 at Patient Temp 134 mmHg (65-108) Arterial Blood HCO3 5 mmol/L (21-28) Arterial Blood Base Excess -21 mmol/L (-3-3) White Blood Count 14.7 x10^3/uL (4.0-11.0) Red Blood Count 3.26 x10^6/uL (4.30-5.70) Hemoglobin 6.5 g/dL (13.0-17.5) Hematocrit 23.4 % (39.0-53.0) Mean Corpuscular Volume 72 fL (79-100) Mean Corpuscular Hemoglobin 20 pg (25-35) Mean Corpuscular Hemoglobin Concent 28 g/dL (31-37) Red Cell Distribution Width 27.3 % (11.5-14.5) Platelet Count 141 x10^3/uL (140-400) Neutrophils (%) (Auto) 81 % (31-73) Lymphocytes (%) (Auto) 7 % (24-48) Monocytes (%) (Auto) 11 % (0-9) Eosinophils (%) (Auto) 1 % (0-3) Basophils (%) (Auto) 0 % (0-3) Neutrophils # (Auto) 11.9 x10^3uL (1.8-7.7) Lymphocytes # (Auto) 1.0 x10^3/uL (1.0-4.8) Monocytes # (Auto) 1.5 x10^3/uL (0.0-1.1) Eosinophils # (Auto) 0.1 x10^3/uL (0.0-0.7) Basophils # (Auto) 0.0 x10^3/uL (0.0-0.2) Segmented Neutrophils % 80 % (35-66) Band Neutrophils % 9 % (0-9) Lymphocytes % 7 % (24-48) Monocytes % 4 % (0-10) Nucleated Red Blood Cells 6 Platelet Estimate Adequate (ADEQUATE) Polychromasia Slight Hypochromasia Mod Anisocytosis Marked Microcytosis Mod Ovalocytes Few Nicol Cells Many Schistocytes Few Prothrombin Time 52.5 SEC (11.7-14.0) Prothromb Time International Ratio 5.8 (0.8-1.1) Sodium Level 136 mmol/L (136-145) Potassium Level 5.1 mmol/L (3.5-5.1) Chloride Level 101 mmol/L (98-107) Carbon Dioxide Level 10 mmol/L (21-32) Anion Gap 25 (6-14) Blood Urea Nitrogen 49 mg/dL (8-26) Creatinine 3.6 mg/dL (0.7-1.3) Estimated GFR (Cockcroft-Gault) 17.3 BUN/Creatinine Ratio 14 (6-20) Glucose Level 129 mg/dL (70-99) Lactic Acid Level 14.9 mmol/L (0.4-2.0) Calcium Level 7.7 mg/dL (8.5-10.1) Magnesium Level 2.1 mg/dL (1.8-2.4) Total Bilirubin 2.9 mg/dL (0.2-1.0) Aspartate Amino Transf (AST/SGOT) 4514 U/L (15-37) Alanine Aminotransferase (ALT/SGPT) 1550 U/L (16-63) Alkaline Phosphatase 104 U/L (46-116) Creatine Kinase 210 U/L (39-308) Troponin I Quantitative 0.073 ng/mL (0.000-0.055) PV-Swz-S-Type Natriuretic Peptide 3776 pg/mL (0-124) Total Protein 5.8 g/dL (6.4-8.2) Albumin 2.7 g/dL (3.4-5.0) Albumin/Globulin Ratio 0.9 (1.0-1.7) Lipase 408 U/L (73-393) Procalcitonin 0.88 ng/mL (0.00-0.10) Acetaminophen Level 2.7 mcg/ml (10-30) Acetaminophen Last Dose Date Unk Acetaminophen Last Dose Time Unk Ethyl Alcohol Level < 10 mg/dL (0-10) Test 10/10/18 22:56 10/10/18 23:41 10/11/18 00:45 10/11/18 02:00 Glucose (Fingerstick) 111 mg/dL (70-99) Ammonia 28 mcmol/L (11-34) O2 Saturation 97 % (92-99) Arterial Blood pH 7.19 (7.35-7.45) Arterial Blood pCO2 at Patient Temp 19 mmHg (35-46) Arterial Blood pO2 at Patient Temp 125 mmHg (65-108) Arterial Blood HCO3 7 mmol/L (21-28) Arterial Blood Base Excess -19 mmol/L (-3-3) FiO2 40% Lactic Acid Level 13.3 mmol/L (0.4-2.0) Test 10/11/18 05:40 White Blood Count 12.0 x10^3/uL (4.0-11.0) Red Blood Count 4.01 x10^6/uL (4.30-5.70) Hemoglobin 8.4 g/dL (13.0-17.5) Hematocrit 28.4 % (39.0-53.0) Mean Corpuscular Volume 71 fL (79-100) Mean Corpuscular Hemoglobin 21 pg (25-35) Mean Corpuscular Hemoglobin Concent 30 g/dL (31-37) Red Cell Distribution Width 27.6 % (11.5-14.5) Platelet Count 146 x10^3/uL (140-400) Neutrophils (%) (Auto) 82 % (31-73) Lymphocytes (%) (Auto) 8 % (24-48) Monocytes (%) (Auto) 8 % (0-9) Eosinophils (%) (Auto) 1 % (0-3) Basophils (%) (Auto) 0 % (0-3) Neutrophils # (Auto) 9.9 x10^3uL (1.8-7.7) Lymphocytes # (Auto) 1.0 x10^3/uL (1.0-4.8) Monocytes # (Auto) 1.0 x10^3/uL (0.0-1.1) Eosinophils # (Auto) 0.1 x10^3/uL (0.0-0.7) Basophils # (Auto) 0.0 x10^3/uL (0.0-0.2) Sodium Level 134 mmol/L (136-145) Potassium Level 5.6 mmol/L (3.5-5.1) Chloride Level 96 mmol/L (98-107) Carbon Dioxide Level 15 mmol/L (21-32) Anion Gap 23 (6-14) Blood Urea Nitrogen 60 mg/dL (8-26) Creatinine 4.1 mg/dL (0.7-1.3) Estimated GFR (Cockcroft-Gault) 14.9 BUN/Creatinine Ratio 15 (6-20) Glucose Level 114 mg/dL (70-99) Calcium Level 8.1 mg/dL (8.5-10.1) Total Bilirubin 3.6 mg/dL (0.2-1.0) Aspartate Amino Transf (AST/SGOT) 7583 U/L (15-37) Alanine Aminotransferase (ALT/SGPT) 2622 U/L (16-63) Alkaline Phosphatase 124 U/L (46-116) Total Protein 6.6 g/dL (6.4-8.2) Albumin 3.3 g/dL (3.4-5.0) Albumin/Globulin Ratio 1.0 (1.0-1.7) Objective Assessment Sepsis with lactic acidosis Hypothermia, now improved and off Jo-Ann hugger Leukocytosis Acute encephalopathy likely metabolic with hepatic failure NATHANIEL on CKD Acute liver failure ,ammonia wnl Respiratory insufficiency, O2 5L ? colitis on CT A- fib Hep C, VL 24,700 Anemia s/p fall Recent hospitalization Myoclonic movements bue, from hepatic failure Plan Plan of Care continue Zosyn, adjusted for renal function One time dose Levaquin, / d/c meropenem Avoid nephrotoxic agents Abdominal US pending f/u cultures Monitor labs Maintain aspiration precautions Supportive care DNI per staff Critically ill Thank you Patient seen and examined, Records reviewed D/W Nursing staff was agitated earlier arousable but does not answer any questions got ativan If dev diarrhea send for c diff and stool c/s. I agree with above a/p Condition critical Prognosis poor JAKOB SCOTT APRN October 11, 2018 08:31 FIDELIA CASTILLO MD October 11, 2018 11:14
--- NOTE | 2018-10-11 08:35 | PDOC1 ---
History and Physical Date of Admission Date of Admission DATE: 10/11/18 TIME: 07:53 Identification/Chief Complaint Chief Complaint Found down Source Source: Caregiver, Chart review, Patient History of Present Illness History of Present Illness Mr Whitney is a 63yo M w/ PMHx HTN, Afib, Hep C who is brought in by EMS after being found down by a neighbor patient was altered, hypotensive. Patient states that he has just been feeling weak the last couple of days a little bit nauseous here and there no vomiting denies abdominal pain he was in the hospital for A. fib with RVR a few days ago and actually amazingly his labs actually look pretty good at that time Patient denies chest pain he says he might of hit his head when he fell down he remembers feeling weak He says he last drank about 3 days ago however then later he told me that he last drank several months ago. AST 4514, ALT 1550, Lactate 14.9. WBC 14.7, Hb 6.5 with bright red blood per rectum - S/p 1u PRBC in ED. Bilirubin 2.9, INR 5.8. ABG 7.18/15/134, Cr 3.6, BUN 49. CT showed cecal wall thickening, non-contrast. He was hypotensive 92/66 and breathing 48 times per minute with temperature 93.6F rectal, an urgent left groin central line was placed for blood transfusion and fluids and octreotide, protonix, vitamin K administration. Started on empiric zosyn, merrem, levaquin, vancomycin. He was urgently brought to ICU for further stabilization for likely acute liver failure, acute blood loss, severe sepsis, metabolic acidosis, acute encephalopathy. Found with large transaminitis and elevated cr last visit that improved. Hep C viral titer positive, GI consulted and appropriately hep C treatment was not offered as patient admitted he would likely not be compliant. Required 1 u PRBC 09/11/18. MELD score 20 at time of discharge on 10/06/2018 Past Medical History Cardiovascular: AFIB, HTN Pulmonary: No pertinent hx GI: GERD, GI bleed Heme/Onc: No pertinent hx Hepatobiliary: Hep A/B/C (Hep C) Rheumatologic: No pertinent hx Renal/: No pertinent hx Endocrine: No pertinent hx Dermatology: No pertinent hx Past Surgical History Past Surgical History: No pertinent history Family History Family History: Alzheimer's Disease Social History Smoke: Quit ALCOHOL: other Drugs: None Current Problem List Problem List Problems Medical Problems: (1) Lactic acidosis Status: Acute (2) Liver failure Status: Acute (3) Pneumonia Status: Acute (4) Renal failure Status: Acute Current Medications Current Medications Current Medications Sodium Chloride 1,000 ml @ 1,000 mls/hr 1X ONCE IV Last administered on 10/10/18at 22:43; Start 10/10/18 at 22:00; Stop 10/10/18 at 22:59; Status DC Sodium Chloride 1,000 ml @ 1,000 mls/hr 1X ONCE IV Last administered on 10/10/18at 22:42; Start 10/10/18 at 22:00; Stop 10/10/18 at 22:59; Status DC Piperacillin Sod/ Tazobactam Sod (Zosyn Per Pharmacy) 1 each PRN DAILY PRN [facility] SEE COMMENTS; Start 10/10/18 at 22:00; Stop 10/10/18 at 22:33; Status DC Piperacillin Sod/ Tazobactam Sod 3.375 gm/Sodium Chloride 50 ml @ 100 mls/hr 1X ONCE IV Last administered on 10/10/18at 22:44; Start 10/10/18 at 22:15; Stop 10/10/18 at 22:44; Status DC Sodium Bicarbonate (Sodium Bicarb Adult 8.4% Syr) 50 meq 1X ONCE IV Last administered on 10/10/18at 22:43; Start 10/10/18 at 22:30; Stop 10/10/18 at 22:31; Status DC Calcium Gluconate (Calcium Gluconate) 1,000 mg 1X ONCE IVP Last administered on 10/10/18at 22:43; Start 10/10/18 at 22:30; Stop 10/10/18 at 22:31; Status DC Piperacillin Sod/ Tazobactam Sod (Zosyn Per Pharmacy) 1 each PRN DAILY PRN [facility] SEE COMMENTS; Start 10/10/18 at 22:45 Pantoprazole Sodium 80 mg/ Sodium Chloride 100 ml @ 10 mls/hr Q10H IV Last administered on 10/10/18at 23:33; Start 10/10/18 at 23:30 Phytonadione 10 mg/Dextrose 51 ml @ 102 mls/hr 1X ONCE IV Last administered on 10/10/18at 23:46; Start 10/10/18 at 23:30; Stop 10/10/18 at 23:59; Status DC Octreotide Acetate 500 mcg/ Sodium Chloride 101 ml @ 0 mls/hr CONT PRN IV SEE I/O RECORD Last administered on 10/10/18at 23:45; Start 10/10/18 at 23:45 Sodium Bicarbonate 50 meq/Dextrose 1,050 ml @ 125 mls/hr 1X ONCE IV Last administered on 10/11/18at 00:01; Start 10/10/18 at 23:55; Stop 10/11/18 at 08:18 Piperacillin Sod/ Tazobactam Sod 2.25 gm/Sodium Chloride 50 ml @ 100 mls/hr Q6HRS IV Last administered on 10/11/18at 05:30; Start 10/11/18 at 06:00 Meropenem 500 mg/ Sodium Chloride 50 ml @ 100 mls/hr Q8HRS IV ; Start 10/11/18 at 14:00 Ondansetron HCl (Zofran) 4 mg 1X ONCE IV Last administered on 10/11/18at 06:41; Start 10/11/18 at 06:45; Stop 10/11/18 at 06:46; Status DC Thiamine HCl 100 mg/Dextrose 51 ml @ 102 mls/hr 1X ONCE IV Last administered on 10/11/18at 07:40; Start 10/11/18 at 07:00; Stop 10/11/18 at 07:29; Status DC Folic Acid (Folic Acid) 1 mg DAILY PO ; Start 10/11/18 at 09:00 Levofloxacin/ Dextrose 50 ml @ 50 mls/hr 1X ONCE IV Last administered on 10/11/18at 07:42; Start 10/11/18 at 07:00; Stop 10/11/18 at 07:59 Albuterol Sulfate (Ventolin Neb Soln) 2.5 mg PRN Q4HRS PRN NEB SHORTNESS OF BREATH; Start 10/11/18 at 07:15 Lorazepam (Ativan) 1 mg 1X ONCE IV Last administered on 10/11/18at 07:37; Start 10/11/18 at 07:30; Stop 10/11/18 at 07:31; Status DC Active Scripts Active Lactulose 20 Gm/30 Ml Solution 20 Gm PO PRN TID PRN 30 Days Klor-Con M20 (Potassium Chloride) 20 Meq Tab.er.prt 40 Meq PO DAILY 30 Days [Pantoprazole] 40 MG Tablet.dr 40 Mg PO DAILYAC 30 Days Hydroxyzine Pamoate 25 Mg Capsule 25 Mg PO PRN Q8HRS PRN 30 Days Aspirin Ec (Aspirin) 81 Mg Tablet.dr 81 Mg PO DAILYWBKFT 30 Days [Diltiazem Hcl] 240 MG Cap.er.24h 240 Mg PO DAILY 30 Days Metoprolol Tartrate 25 Mg Tablet 25 Mg PO BID 30 Days Vitamin B-1 (Thiamine Mononitrate) 100 Mg Tablet 100 Mg PO DAILY Hydrocodone-Apap 7.5-325 (Hydrocodone Bit/Acetaminophen) 1 Each Tablet 1 Tab PO PRN Q3HRS PRN Folic Acid 1 Mg Tablet 1 Mg PO DAILY Reported Tums (Calcium Carbonate) 300 Mg Tab.chew 300 Mg PO TIDAC PRN Cyclobenzaprine Hcl 10 Mg Tablet 1 Tab PO QHS Gabapentin (Gabapentin) 300 Mg Capsule 300 Mg PO TID Allergies Allergies: Coded Allergies: lisinopril (Verified Allergy, Severe, Swelling, 01/27/17) ANGIOEDEMA ROS Review of System Mostly difficult to obtain due to patient confusion General: YES: Fatigue, Malaise, Appetite PSYCHOLOGICAL ROS: YES: Anxiety, Behavioral Disorder, Disorientation; No: Concentration difficultie, Decreased libido, Depression, Hallucinations, Hostility, Irritablity, Memory difficulties, Mood Swings, Obsessive thoughts, Physical abuse, Sexual abuse, Sleep disturbances, Suicidal ideation, Other Eyes: No Blurry vision, No Decreased vision, No Double vision, No Dry eyes, No Excessive tearing, No Eye Pain, No Itchy Eyes, No Loss of vision, No Photophobia, No Scotomata, No Uses contacts, No Uses glasses, No Other HEENT: No: Heacaches, Visual Changes, Hearing change, Nasal congestion, Nasal discharge, Oral lesions, Sinus pain, Sore Throat, Epistaxis, Sneezing, Snoring, Tinnitus, Vertigo, Vocal changes, Other ALLERGY AND IMMUNOLOGY: No: Hives, Insect Bite Sensitivity, Itchy/Watery Eyes, Nasal Congestion, Post Nasal Drip, Seasonal Allergies, Other Hematological and Lymphatic: YES: Bleeding Problems; No: Blood Clots, Blood Transfusions, Brusing, Night Sweats, Pallor, Swollen Lymph Nodes, Other ENDOCRINE: No: Breast Changes, Galactorrhea, Hair Pattern Changes, Hot Flashes, Malaise/lethargy, Mood Swings, Palpitations, Polydipsia/polyuria, Skin Changes, Temperature Intolerance, Unexpected Weight Changes, Other Breast: No New/Changing Breast Lumps, No Nipple changes, No Nipple discharge, No Other Respiratory: YES: Shortness of breath, Tachypnea; No: Cough, Hemoptysis, Orthopnea, Pleuritic Pain, SOB with excertion, Sputum Changes, Stridor, Wheezing, Other Cardiovascular: yes Palpitations; No Chest Pain, No Orthopnea, No Paroxysmal Noc. Dyspnea, No Edema, No Lt Headedness, No Other Gastrointestinal: Yes Nausea, Yes Abdominal Pain, Yes Melena, Yes Hematochezia; No Vomiting, No Diarrhea, No Constipation, No Other Genitourinary: No Dysuria, No Frequency, No Incontinence, No Hematuria, No R etention, No Discharge, No Urgency, No Pain, No Flank Pain, No Other, No , No , No , No , No , No , No Musculoskeletal: No Gait Disturbance, No Joint Pain, No Joint Stiffness, No Joint Swelling, No Muscle Pain, No Muscular Weakness, No Pain In:, No Swelling In:, No Other Neurological: Yes Behavorial Changes, Yes Confusion, Yes Gait Disturbance, Yes Memory Loss; No Bowel/Bladder ControlChng, No Dizziness, No Headaches, No Impaired Coord/balance, No Numbness/Tingling, No Seizures, No Speech Problems, No Tr emors, No Visual Changes, No Weakness, No Other Skin: No Dry Skin, No Eczema, No Hair Changes, No Lumps, No Mole Changes, No Mottling, No Nail Changes, No Pruritus, No Rash, No Skin Lesion Changes, No Other, No Acne Physical Exam General: moderate distress HEENT: Atraumatic, PERRLA, EOMI, Mucous membr. moist/pink Lungs: Clear to auscultation, Normal air movement Heart: S1S2, RRR, no gallops, no murmurs Abdomen: Normal bowel sounds, Soft, No tenderness, No hepatosplenomegaly, No masses Extremities: No clubbing, No cyanosis, No edema, Normal pulses, No tenderness/swelling Skin: No rashes, No breakdown, No significant lesion Neuro: Normal gait, Normal speech, Strength at 5/5 X4 ext, Normal tone, Sensation intact, Cranial nerves 3-12 NL, Reflexes 2+ Psych/Mental Status: Mental status NL, Mood NL Vitals Vitals Vital Signs Date Time Temp Pulse Resp B/P (MAP) Pulse Ox O2 Delivery O2 Flow Rate FiO2 10/11/18 06:00 67 30 108/78 (88) 100 Nasal Cannula 5.0 10/11/18 05:32 97.5 97.5 Labs Labs Laboratory Tests Test 10/10/18 21:07 10/10/18 21:45 10/10/18 21:57 10/10/18 22:30 Urine Collection Type Unknown Urine Color Barbara Urine Clarity Clear Urine pH 5.5 Urine Specific [place] 1.020 Urine Protein 100 mg/dL (NEG-TRACE) Urine Glucose (UA) Negative mg/dL (NEG) Urine Ketones (Stick) Trace mg/dL (NEG) Urine Blood Small (NEG) Urine Nitrite Negative (NEG) Urine Bilirubin Small (NEG) Urine Urobilinogen Dipstick 1.0 mg/dL (0.2 mg/dL) Urine Leukocyte Esterase Negative (NEG) Urine RBC 3-5 /HPF (0-2) Urine WBC Occ /HPF (0-4) Urine Squamous Epithelial Cells Occ /LPF Urine Bacteria 0 /HPF (0-FEW) Urine Hyaline Casts Many /HPF Urine Mucus Marked /LPF Urine Opiates Screen Neg (NEG) Urine Methadone Screen Neg (NEG) Urine Barbiturates Neg (NEG) Urine Phencyclidine Screen Neg (NEG) Urine Amphetamine/Methamphetamine Neg (NEG) Urine Benzodiazepines Screen Neg (NEG) Urine Cocaine Screen Neg (NEG) Urine Cannabinoids Screen Neg (NEG) Urine Ethyl Alcohol Neg (NEG) Glucose (Fingerstick) 137 mg/dL (70-99) Stool Occult Blood Positive (NEG) O2 Saturation 98 % (92-99) Arterial Blood pH 7.18 (7.35-7.45) Arterial Blood pCO2 at Patient Temp < 15 mmHg (35-46) Arterial Blood pO2 at Patient Temp 134 mmHg (65-108) Arterial Blood HCO3 5 mmol/L (21-28) Arterial Blood Base Excess -21 mmol/L (-3-3) White Blood Count 14.7 x10^3/uL (4.0-11.0) Red Blood Count 3.26 x10^6/uL (4.30-5.70) Hemoglobin 6.5 g/dL (13.0-17.5) Hematocrit 23.4 % (39.0-53.0) Mean Corpuscular Volume 72 fL (79-100) Mean Corpuscular Hemoglobin 20 pg (25-35) Mean Corpuscular Hemoglobin Concent 28 g/dL (31-37) Red Cell Distribution Width 27.3 % (11.5-14.5) Platelet Count 141 x10^3/uL (140-400) Neutrophils (%) (Auto) 81 % (31-73) Lymphocytes (%) (Auto) 7 % (24-48) Monocytes (%) (Auto) 11 % (0-9) Eosinophils (%) (Auto) 1 % (0-3) Basophils (%) (Auto) 0 % (0-3) Neutrophils # (Auto) 11.9 x10^3uL (1.8-7.7) Lymphocytes # (Auto) 1.0 x10^3/uL (1.0-4.8) Monocytes # (Auto) 1.5 x10^3/uL (0.0-1.1) Eosinophils # (Auto) 0.1 x10^3/uL (0.0-0.7) Basophils # (Auto) 0.0 x10^3/uL (0.0-0.2) Segmented Neutrophils % 80 % (35-66) Band Neutrophils % 9 % (0-9) Lymphocytes % 7 % (24-48) Monocytes % 4 % (0-10) Nucleated Red Blood Cells 6 Platelet Estimate Adequate (ADEQUATE) Polychromasia Slight Hypochromasia Mod Anisocytosis Marked Microcytosis Mod Ovalocytes Few Balm Cells Many Schistocytes Few Prothrombin Time 52.5 SEC (11.7-14.0) Prothromb Time International Ratio 5.8 (0.8-1.1) Sodium Level 136 mmol/L (136-145) Potassium Level 5.1 mmol/L (3.5-5.1) Chloride Level 101 mmol/L (98-107) Carbon Dioxide Level 10 mmol/L (21-32) Anion Gap 25 (6-14) Blood Urea Nitrogen 49 mg/dL (8-26) Creatinine 3.6 mg/dL (0.7-1.3) Estimated GFR (Cockcroft-Gault) 17.3 BUN/Creatinine Ratio 14 (6-20) Glucose Level 129 mg/dL (70-99) Lactic Acid Level 14.9 mmol/L (0.4-2.0) Calcium Level 7.7 mg/dL (8.5-10.1) Magnesium Level 2.1 mg/dL (1.8-2.4) Total Bilirubin 2.9 mg/dL (0.2-1.0) Aspartate Amino Transf (AST/SGOT) 4514 U/L (15-37) Alanine Aminotransferase (ALT/SGPT) 1550 U/L (16-63) Alkaline Phosphatase 104 U/L (46-116) Creatine Kinase 210 U/L (39-308) Troponin I Quantitative 0.073 ng/mL (0.000-0.055) YE-Cnp-X-Type Natriuretic Peptide 3776 pg/mL (0-124) Total Protein 5.8 g/dL (6.4-8.2) Albumin 2.7 g/dL (3.4-5.0) Albumin/Globulin Ratio 0.9 (1.0-1.7) Lipase 408 U/L (73-393) Procalcitonin 0.88 ng/mL (0.00-0.10) Acetaminophen Level 2.7 mcg/ml (10-30) Acetaminophen Last Dose Date Unk Acetaminophen Last Dose Time Unk Ethyl Alcohol Level < 10 mg/dL (0-10) Test 10/10/18 22:56 10/10/18 23:41 10/11/18 00:45 10/11/18 02:00 Glucose (Fingerstick) 111 mg/dL (70-99) Ammonia 28 mcmol/L (11-34) O2 Saturation 97 % (92-99) Arterial Blood pH 7.19 (7.35-7.45) Arterial Blood pCO2 at Patient Temp 19 mmHg (35-46) Arterial Blood pO2 at Patient Temp 125 mmHg (65-108) Arterial Blood HCO3 7 mmol/L (21-28) Arterial Blood Base Excess -19 mmol/L (-3-3) FiO2 40% Lactic Acid Level 13.3 mmol/L (0.4-2.0) Test 10/11/18 05:40 White Blood Count 12.0 x10^3/uL (4.0-11.0) Red Blood Count 4.01 x10^6/uL (4.30-5.70) Hemoglobin 8.4 g/dL (13.0-17.5) Hematocrit 28.4 % (39.0-53.0) Mean Corpuscular Volume 71 fL (79-100) Mean Corpuscular Hemoglobin 21 pg (25-35) Mean Corpuscular Hemoglobin Concent 30 g/dL (31-37) Red Cell Distribution Width 27.6 % (11.5-14.5) Platelet Count 146 x10^3/uL (140-400) Neutrophils (%) (Auto) 82 % (31-73) Lymphocytes (%) (Auto) 8 % (24-48) Monocytes (%) (Auto) 8 % (0-9) Eosinophils (%) (Auto) 1 % (0-3) Basophils (%) (Auto) 0 % (0-3) Neutrophils # (Auto) 9.9 x10^3uL (1.8-7.7) Lymphocytes # (Auto) 1.0 x10^3/uL (1.0-4.8) Monocytes # (Auto) 1.0 x10^3/uL (0.0-1.1) Eosinophils # (Auto) 0.1 x10^3/uL (0.0-0.7) Basophils # (Auto) 0.0 x10^3/uL (0.0-0.2) Sodium Level 134 mmol/L (136-145) Potassium Level 5.6 mmol/L (3.5-5.1) Chloride Level 96 mmol/L (98-107) Carbon Dioxide Level 15 mmol/L (21-32) Anion Gap 23 (6-14) Blood Urea Nitrogen 60 mg/dL (8-26) Creatinine 4.1 mg/dL (0.7-1.3) Estimated GFR (Cockcroft-Gault) 14.9 BUN/Creatinine Ratio 15 (6-20) Glucose Level 114 mg/dL (70-99) Calcium Level 8.1 mg/dL (8.5-10.1) Laboratory Tests Test 10/10/18 21:07 10/10/18 21:45 10/10/18 21:57 10/10/18 22:30 Urine Collection Type Unknown Urine Color Barbara Urine Clarity Clear Urine pH 5.5 Urine Specific [place] 1.020 Urine Protein 100 mg/dL (NEG-TRACE) Urine Glucose (UA) Negative mg/dL (NEG) Urine Ketones (Stick) Trace mg/dL (NEG) Urine Blood Small (NEG) Urine Nitrite Negative (NEG) Urine Bilirubin Small (NEG) Urine Urobilinogen Dipstick 1.0 mg/dL (0.2 mg/dL) Urine Leukocyte Esterase Negative (NEG) Urine RBC 3-5 /HPF (0-2) Urine WBC Occ /HPF (0-4) Urine Squamous Epithelial Cells Occ /LPF Urine Bacteria 0 /HPF (0-FEW) Urine Hyaline Casts Many /HPF Urine Mucus Marked /LPF Urine Opiates Screen Neg (NEG) Urine Methadone Screen Neg (NEG) Urine Barbiturates Neg (NEG) Urine Phencyclidine Screen Neg (NEG) Urine Amphetamine/Methamphetamine Neg (NEG) Urine Benzodiazepines Screen Neg (NEG) Urine Cocaine Screen Neg (NEG) Urine Cannabinoids Screen Neg (NEG) Urine Ethyl Alcohol Neg (NEG) Glucose (Fingerstick) 137 mg/dL (70-99) Stool Occult Blood Positive (NEG) O2 Saturation 98 % (92-99) Arterial Blood pH 7.18 (7.35-7.45) Arterial Blood pCO2 at Patient Temp < 15 mmHg (35-46) Arterial Blood pO2 at Patient Temp 134 mmHg (65-108) Arterial Blood HCO3 5 mmol/L (21-28) Arterial Blood Base Excess -21 mmol/L (-3-3) White Blood Count 14.7 x10^3/uL (4.0-11.0) Red Blood Count 3.26 x10^6/uL (4.30-5.70) Hemoglobin 6.5 g/dL (13.0-17.5) Hematocrit 23.4 % (39.0-53.0) Mean Corpuscular Volume 72 fL (79-100) Mean Corpuscular Hemoglobin 20 pg (25-35) Mean Corpuscular Hemoglobin Concent 28 g/dL (31-37) Red Cell Distribution Width 27.3 % (11.5-14.5) Platelet Count 141 x10^3/uL (140-400) Neutrophils (%) (Auto) 81 % (31-73) Lymphocytes (%) (Auto) 7 % (24-48) Monocytes (%) (Auto) 11 % (0-9) Eosinophils (%) (Auto) 1 % (0-3) Basophils (%) (Auto) 0 % (0-3) Neutrophils # (Auto) 11.9 x10^3uL (1.8-7.7) Lymphocytes # (Auto) 1.0 x10^3/uL (1.0-4.8) Monocytes # (Auto) 1.5 x10^3/uL (0.0-1.1) Eosinophils # (Auto) 0.1 x10^3/uL (0.0-0.7) Basophils # (Auto) 0.0 x10^3/uL (0.0-0.2) Segmented Neutrophils % 80 % (35-66) Band Neutrophils % 9 % (0-9) Lymphocytes % 7 % (24-48) Monocytes % 4 % (0-10) Nucleated Red Blood Cells 6 Platelet Estimate Adequate (ADEQUATE) Polychromasia Slight Hypochromasia Mod Anisocytosis Marked Microcytosis Mod Ovalocytes Few Nicol Cells Many Schistocytes Few Prothrombin Time 52.5 SEC (11.7-14.0) Prothromb Time International Ratio 5.8 (0.8-1.1) Sodium Level 136 mmol/L (136-145) Potassium Level 5.1 mmol/L (3.5-5.1) Chloride Level 101 mmol/L (98-107) Carbon Dioxide Level 10 mmol/L (21-32) Anion Gap 25 (6-14) Blood Urea Nitrogen 49 mg/dL (8-26) Creatinine 3.6 mg/dL (0.7-1.3) Estimated GFR (Cockcroft-Gault) 17.3 BUN/Creatinine Ratio 14 (6-20) Glucose Level 129 mg/dL (70-99) Lactic Acid Level 14.9 mmol/L (0.4-2.0) Calcium Level 7.7 mg/dL (8.5-10.1) Magnesium Level 2.1 mg/dL (1.8-2.4) Total Bilirubin 2.9 mg/dL (0.2-1.0) Aspartate Amino Transf (AST/SGOT) 4514 U/L (15-37) Alanine Aminotransferase (ALT/SGPT) 1550 U/L (16-63) Alkaline Phosphatase 104 U/L (46-116) Creatine Kinase 210 U/L (39-308) Troponin I Quantitative 0.073 ng/mL (0.000-0.055) WM-Lon-Y-Type Natriuretic Peptide 3776 pg/mL (0-124) Total Protein 5.8 g/dL (6.4-8.2) Albumin 2.7 g/dL (3.4-5.0) Albumin/Globulin Ratio 0.9 (1.0-1.7) Lipase 408 U/L (73-393) Procalcitonin 0.88 ng/mL (0.00-0.10) Acetaminophen Level 2.7 mcg/ml (10-30) Acetaminophen Last Dose Date Unk Acetaminophen Last Dose Time Unk Ethyl Alcohol Level < 10 mg/dL (0-10) Test 10/10/18 22:56 10/10/18 23:41 10/11/18 00:45 10/11/18 02:00 Glucose (Fingerstick) 111 mg/dL (70-99) Ammonia 28 mcmol/L (11-34) O2 Saturation 97 % (92-99) Arterial Blood pH 7.19 (7.35-7.45) Arterial Blood pCO2 at Patient Temp 19 mmHg (35-46) Arterial Blood pO2 at Patient Temp 125 mmHg (65-108) Arterial Blood HCO3 7 mmol/L (21-28) Arterial Blood Base Excess -19 mmol/L (-3-3) FiO2 40% Lactic Acid Level 13.3 mmol/L (0.4-2.0) Test 10/11/18 05:40 White Blood Count 12.0 x10^3/uL (4.0-11.0) Red Blood Count 4.01 x10^6/uL (4.30-5.70) Hemoglobin 8.4 g/dL (13.0-17.5) Hematocrit 28.4 % (39.0-53.0) Mean Corpuscular Volume 71 fL (79-100) Mean Corpuscular Hemoglobin 21 pg (25-35) Mean Corpuscular Hemoglobin Concent 30 g/dL (31-37) Red Cell Distribution Width 27.6 % (11.5-14.5) Platelet Count 146 x10^3/uL (140-400) Neutrophils (%) (Auto) 82 % (31-73) Lymphocytes (%) (Auto) 8 % (24-48) Monocytes (%) (Auto) 8 % (0-9) Eosinophils (%) (Auto) 1 % (0-3) Basophils (%) (Auto) 0 % (0-3) Neutrophils # (Auto) 9.9 x10^3uL (1.8-7.7) Lymphocytes # (Auto) 1.0 x10^3/uL (1.0-4.8) Monocytes # (Auto) 1.0 x10^3/uL (0.0-1.1) Eosinophils # (Auto) 0.1 x10^3/uL (0.0-0.7) Basophils # (Auto) 0.0 x10^3/uL (0.0-0.2) Sodium Level 134 mmol/L (136-145) Potassium Level 5.6 mmol/L (3.5-5.1) Chloride Level 96 mmol/L (98-107) Carbon Dioxide Level 15 mmol/L (21-32) Anion Gap 23 (6-14) Blood Urea Nitrogen 60 mg/dL (8-26) Creatinine 4.1 mg/dL (0.7-1.3) Estimated GFR (Cockcroft-Gault) 14.9 BUN/Creatinine Ratio 15 (6-20) Glucose Level 114 mg/dL (70-99) Calcium Level 8.1 mg/dL (8.5-10.1) Images Images CT head and neck - no significant findings CT abdomen/pelvis - 1. Circumferential wall thickening of the cecum and rectum suggests focal colitis. Underlying mass not ruled out. Colonoscopy recommended. No bowel obstruction. 2. Consolidation in the right lower lobe may be secondary to passive atelectasis from the adjacent small bowel pleural effusion or pneumonia. 3. Bilateral renal lesions most likely simple cysts. Nonemergent ultrasound of the kidneys recommended. 4. Fractures of the right transverse processes of the L2-L4 vertebral bodies, age indeterminate. Clinically correlate with focal tenderness. 5. Left groin emphysema may be secondary to placement of the intravenous catheter. Clinically correlate with signs of infection. 5. Cholelithiasis. VTE Prophylaxis Ordered VTE Prophylaxis Devices: Contraindicated VTE Pharmacological Prophylaxi: Yes Assessment/Plan Assessment/Plan A/P: Acute encephalopathy - was confused, possibly is hepatic, will give lactulose Metabolic acidosis - large anion gap - looks to be mostly lactic acidosis, mesenteric ischemia is a strong possibility as primary etiology based on his CT results, though contrast dye is relatively contraindicated based on his Cr level, he is being aggressively treated for sepsis. ETOH use denied and negative on labs, negative acetaminophen, BUN 49, salicylates pending NATHANIEL - unfortunately this may be secondary to liver failure. There is definitely a vasomotor component as well. Based on his severe acidosis he does need urgent dialysis. Will consult nephrology. Severe sepsis - on levaquin, zosyn, merrem Acute hepatitis - will check aPTT, may benefit from corticosteroids. Looking like this is acute liver failure considering his MELD jumped from 20 on discharge on 10/06/18 to 40 today. He denies ETOH and his Hep C titers were on the lower end. Will consult GI to assist. Cont octreotide and protonix for acute bleed Acute blood loss anemia - likely 2/2 varices, could be 2/2 mesenteric ischemia. s/p 1 u PRBC, cont octreotide and protonix. Microcytic by history, was advised to take iron on last visit AFIB - on Cardizem. Previously seen by cardiology Generalized pruritus with no evidence of skin lesions - likely from Hep C History of essential Hypertension - monitor Tobacco abuse greater than 50 pack year history of smoking, counseling done Hep C - viral titer 51981 last check, will consult GI FEN - Cardiac diet PPX - Protonix. SCDs FULL CODE Dispo - ICU for severe sepsis, encephalopathy, multi-organ system failure, in for at least 2 midnights. Overall grim prognosis with his liver disease and lactic acidosis REESE HENAO MD October 11, 2018 08:35
[2018-10-11] MEDS ORDERED: ONDANSETRON PF 4 MG/2 ML VIAL. IV PRN (08:45)
[2018-10-11] MEDS ORDERED: FOLIC ACID 1 MG TABLET. PO SCH (09:00)
[2018-10-11 09:12] LABS: PROTHROMBIN TIME PATIENT 48.2 SEC (11.7-14.0)
[2018-10-11] MEDS: SODIUM BICARBONATE VIAL 50 MEQ in IV DEXTROSE 5% 1,000 ML IV SCH ×2 (09:21→18:05)
[2018-10-11] MEDS ORDERED: LACTULOSE 20 GM/30 ML SOLUTION. PO SCH (09:30)
[2018-10-11] MEDS ORDERED: SODIUM BICARB ADULT 8.4% 50 MEQ/50 ML DISP.SYRIN. ONE (09:42)
[2018-10-11] MEDS ORDERED: IV NORMAL SALINE 500ML BAG 500 ML IV PRN (09:45)
[2018-10-11] MEDS ORDERED: ATROPINE 0.5 MG/5 ML DISP.SYRINGE. IV PRN (09:45)
[2018-10-11] MEDS ORDERED: SODIUM BICARB ADULT 8.4% 50 MEQ/50 ML DISP.SYRIN. IV ONE (10:00)
--- NOTE | 2018-10-11 10:01 | CONS ---
DATE OF CONSULTATION: ATTENDING PHYSICIAN: Dr. Newell. REASON FOR CONSULTATION: Sepsis, acute liver failure, respiratory failure, encephalopathy. HISTORY OF PRESENT ILLNESS: The patient is a 63-year-old male with history of hepatitis C. He was last hospitalized not too long ago for atrial fibrillation with RVR. The patient was subsequently discharged home. He last drank alcohol 3 days prior to admission. He was brought into the hospital with lethargy, weakness and shortness of breath. He had a markedly elevated AST and ALT with a lactate of 14.9 and a white cell count of 14.7, with a hemoglobin of 6.5 and had bright red blood per rectum. He has also had a bilirubin of 2.9. CT abdomen showed cecal wall thickening, and there was also concern about the possibility of mass. The patient had severe metabolic acidosis. His bicarbonate was only 7. His ABG showed a pH of 7.18, pCO2 of 19 and a pO2 of 134 and a bicarbonate of between 5-7 on multiple ABGs. He received 2 amps of bicarbonate and was placed on a bicarbonate drip. He also had an echocardiogram done in the beginning of September, and it showed witk-[id number]-jyxbrpuy mitral regurgitation and EF of 50%. He is very lethargic. He was agitated and restless. As a result, he received Ativan. At this time, he is not following any commands. His chest x-ray was reviewed. It shows infiltrates, interstitial type, more on the right than on the left. His CT abdomen showed the right lower lobe effusion with associated atelectasis. The patient is hemodynamically stable. Did not require any pressors. I have been asked to see him for further evaluation. PAST MEDICAL HISTORY: History of atrial fibrillation, now in sinus. Hypertension, history of hepatitis C, history of GI bleed. PAST SURGICAL HISTORY: No recent surgeries. FAMILY HISTORY: Alzheimer's. SOCIAL HISTORY: Quit tobacco. Has history of alcoholism. ALLERGIES: LISINOPRIL. CURRENT MEDICATIONS: Reviewed including broad-spectrum antibiotics. REVIEW OF SYSTEMS: Cannot be obtained from the patient due to his altered mental status. PHYSICAL EXAMINATION: VITAL SIGNS: Blood pressure latest 108-130 systolic, afebrile; however, he was hypothermic on arrival with a temperature of 93.9. His pulse ox 100% on 5 liters. EYES: His sclerae icteric. NECK: Supple. LUNGS: With crackles minimally at the bases. CARDIOVASCULAR: Regular rate and rhythm. ABDOMEN: Soft. EXTREMITIES: With venous stasis and trace edema. LABORATORY DATA: Reviewed. Sodium 134, potassium 5.6. BUN is 60 and a creatinine of 4.1. Bicarbonate is 15 on the chemistries. Calcium 8.1. AST is 7583 and ALT 2622. They both have increased since admission. Lactic acid is still high at 13.3. Bilirubin has gone up to 3.6. Albumin 3.3. INR was 5.8 and is still 5.2. Toxicology screen negative. IMPRESSION: 1. Acute hypoxic respiratory failure with multisystem organ involvement. The etiology of respiratory failure secondary to sepsis and acute liver failure. 2. Significantly abnormal liver function tests related to acute hepatic failure in a patient who has hepatitis C. 3. Acute blood loss anemia secondary to gastrointestinal bleed. 4. Coagulopathy with high INR of 5.2 related to liver disease and sepsis. 5. Thrombocytopenia. 6. Abnormal chest x-ray consistent with pneumonia. 7. Recently abnormal echo with [id number]-[id number] mitral regurgitation and ejection fraction of 50%. 8. Severe metabolic acidosis secondary to lactic acidosis resulting from sepsis along with underlying liver failure. 9. Possible underlying COPD/tobaccoism. 10. Hyperkalemia. 11. NATHANIEL. ? Hepato-renal syndrome. RECOMMENDATIONS: 1. The patient is critically ill. At this time, I would continue with present oxygen along with p.r.n. BiPAP if needed. 2. Continue broad-spectrum antibiotics and follow ID recommendation. 3. Follow liver function tests and follow GI recommendations. 4. Correct coagulopathy. 5. Status post packed RBCs and follow hemoglobin closely. 6. Follow GI recommendations. 7. The patient is in acute renal failure and could be hepatorenal syndrome. Needs a renal recommendation and follow. We will need dialysis. 8. Severe coagulopathy. 9. Likely pneumonia. 10. Continued broad-spectrum antibiotic. 11. Prognosis is extremely grim. We have discussed with Dr. Pham and the ER physician, and we will discuss with family about advanced directives as well. Continue current aggressive supportive care. Addend: d/w brother. explained critical illness and grave prognosis. He agrees for DNR/DNI. This has been patients wishes as well. Critical care time 40 minutes. RAMIREZ RIVERS MD DR: Anupama JOB#: [id number] / [id number] [place]
[2018-10-11] MEDS: PANTOPRAZOLE SODIUM IV DRIP 80 MG in IV NORMAL SALINE 100ML 100 ML IV SCH ×2 (10:39→20:54)
--- NOTE | 2018-10-11 10:49 | RAD ---
EXAM: Abdomen sonogram. HISTORY: Abnormal liver enzymes laboratory values. TECHNIQUE: Sonographic imaging of the abdomen was performed. COMPARISON: CT dated 10/10/2018. FINDINGS: The exam is limited due to patient mental status and inability to maintain a breath-hold. The liver is normal in size. No focal hepatic lesion is seen. There is cholelithiasis. There is gallbladder wall thickening. The common bile duct is obscured. The kidneys are normal in size. There is a 6.0 cm right renal cyst. There is also a suspected right parapelvic cyst. The pancreas, aorta and inferior vena cava are predominantly obscured due to bowel gas. The spleen is normal in size. The right pleural effusion. The stomach is distended with echogenic bolus. IMPRESSION: 1. Limited exam due to patient mental status. 2. Cholelithiasis. There is superimposed gallbladder wall thickening which may be due to cholecystitis or intrinsic liver disease. The common bile duct is obscured. 3. 6.0 cm right renal cyst and prominent right renal pelvis likely due to a parapelvic cyst rather than hydronephrosis. There is an additional hypodense lesion within the right kidney on the prior CT which demonstrates no clear sonographic correlate. This remains indeterminant. 4. Distended stomach containing echogenic bolus. 5. Right pleural effusion. Electronically signed by: Alyssia Sweeney MD (10/11/2018 10:45 AM) [facility]
--- NOTE | 2018-10-11 11:27 | PDOC2 ---
CONSULT Date of Consult Date of Consult DATE: 10/11/18 TIME: 11:16 Reason for Consult Reason for Consult: NATHANIEL Referring Physician Referring Physician: FAUSTO Identification/Chief Complaint Chief Complaint SOB AND CONFUSION Source Source: Chart review History of Present Illness Reason for Visit: THIS IS A 63 YR OLD PT WITH CONFUSION AND FOUND DOWN BY NEIGHBORS. NOTED TO HAVE PROGRESSIVE INCREASE IN LFTS AND SEVERE MET ACIDOSIS WITH NATHANIEL AND ELECTROLYTE ABNORMALITIES. NO CKD NOTED ALTHOUGH HE HAS HAD MILD NATHANIEL DURING PREVIOUS ADMITS. HAS DX OF HEP C. ALSO NOTED TO HAVE SEPSIS AND LEUCOCYTOSIS. CONFUSED PROB DUE TO MET ENCEPHALOPATHY. SONOGRAM SHOWED A RIGHT PARAPELVIC CYST Past Medical History Cardiovascular: AFIB, HTN Pulmonary: No pertinent hx GI: GERD, GI bleed Heme/Onc: No pertinent hx Hepatobiliary: Hep A/B/C (Hep C) Rheumatologic: No pertinent hx Renal/: No pertinent hx Endocrine: No pertinent hx Dermatology: No pertinent hx Past Surgical History Past Surgical History: No pertinent history Family History Family History: Alzheimer's Disease Social History Quit ALCOHOL: other Drugs: None Current Problem List Problem List Problems Medical Problems: (1) Lactic acidosis Status: Acute (2) Liver failure Status: Acute (3) Pneumonia Status: Acute (4) Renal failure Status: Acute Current Medications Current Medications Current Medications Sodium Chloride 1,000 ml @ 1,000 mls/hr 1X ONCE IV Last administered on 10/10/18at 22:43; Start 10/10/18 at 22:00; Stop 10/10/18 at 22:59; Status DC Sodium Chloride 1,000 ml @ 1,000 mls/hr 1X ONCE IV Last administered on at 22:42; Start 10/10/18 at 22:00; Stop 10/10/18 at 22:59; Status DC Piperacillin Sod/ Tazobactam Sod (Zosyn Per Pharmacy) 1 each PRN DAILY PRN MC SEE COMMENTS; Start 10/10/18 at 22:00; Stop 10/10/18 at 22:33; Status DC Piperacillin Sod/ Tazobactam Sod 3.375 gm/Sodium Chloride 50 ml @ 100 mls/hr 1X ONCE IV Last administered on 10/10/18at 22:44; Start 10/10/18 at 22:15; Stop 10/10/18 at 22:44; Status DC Sodium Bicarbonate (Sodium Bicarb Adult 8.4% Syr) 50 meq 1X ONCE IV Last administered on 10/10/18at 22:43; Start 10/10/18 at 22:30; Stop 10/10/18 at 22:31; Status DC Calcium Gluconate (Calcium Gluconate) 1,000 mg 1X ONCE IVP Last administered on 10/10/18at 22:43; Start 10/10/18 at 22:30; Stop 10/10/18 at 22:31; Status DC Piperacillin Sod/ Tazobactam Sod (Zosyn Per Pharmacy) 1 each PRN DAILY PRN MC SEE COMMENTS; Start 10/10/18 at 22:45 Pantoprazole Sodium 80 mg/ Sodium Chloride 100 ml @ 10 mls/hr Q10H IV Last administered on 10/11/18at 10:39; Start 10/10/18 at 23:30 Phytonadione 10 mg/Dextrose 51 ml @ 102 mls/hr 1X ONCE IV Last administered on 10/10/18at 23:46; Start 10/10/18 at 23:30; Stop 10/10/18 at 23:59; Status DC Octreotide Acetate 500 mcg/ Sodium Chloride 101 ml @ 0 mls/hr CONT PRN IV SEE I/O RECORD Last administered on 10/10/18at 23:45; Start 10/10/18 at 23:45 Sodium Bicarbonate 50 meq/Dextrose 1,050 ml @ 125 mls/hr 1X ONCE IV Last administered on 10/11/18at 00:01; Start 10/10/18 at 23:55; Stop 10/11/18 at 08:18; Status DC Piperacillin Sod/ Tazobactam Sod 2.25 gm/Sodium Chloride 50 ml @ 100 mls/hr Q6HRS IV Last administered on 10/11/18at 05:30; Start 10/11/18 at 06:00; Stop 10/11/18 at 08:25; Status DC Meropenem 500 mg/ Sodium Chloride 50 ml @ 100 mls/hr Q8HRS IV ; Start 10/11/18 at 14:00; Stop 10/11/18 at 14:00; Status DC Ondansetron HCl (Zofran) 4 mg 1X ONCE IV Last administered on 10/11/18at 06:41; Start 10/11/18 at 06:45; Stop 10/11/18 at 06:46; Status DC Thiamine HCl 100 mg/Dextrose 51 ml @ 102 mls/hr 1X ONCE IV Last administered on 10/11/18at 07:40; Start 10/11/18 at 07:00; Stop 10/11/18 at 07:29; Status DC Folic Acid (Folic Acid) 1 mg DAILY PO ; Start 10/11/18 at 09:00 Levofloxacin/ Dextrose 50 ml @ 50 mls/hr 1X ONCE IV Last administered on 10/11/18at 07:42; Start 10/11/18 at 07:00; Stop 10/11/18 at 07:59; Status DC Albuterol Sulfate (Ventolin Neb Soln) 2.5 mg PRN Q4HRS PRN NEB SHORTNESS OF BREATH; Start 10/11/18 at 07:15 Lorazepam (Ativan) 1 mg 1X ONCE IV Last administered on 10/11/18at 07:37; Start 10/11/18 at 07:30; Stop 10/11/18 at 09:35; Status DC Lorazepam (Ativan) 1 mg PRN Q3HRS PRN IV ANXIETY / AGITATION; Start 10/11/18 at 08:00; Stop 10/11/18 at 09:35; Status DC Piperacillin Sod/ Tazobactam Sod 2.25 gm/Sodium Chloride 50 ml @ 100 mls/hr Q8HRS IV ; Start 10/11/18 at 14:00 Ondansetron HCl (Zofran) 4 mg PRN Q6HRS PRN IV NAUSEA/VOMITING; Start 10/11/18 at 08:45 Lactulose (Lactulose) 30 gm TID PO ; Start 10/11/18 at 09:30 Sodium Bicarbonate 50 meq/Dextrose 1,050 ml @ 125 mls/hr Q8H24M IV Last administered on 10/11/18at 09:21; Start 10/11/18 at 10:00 Dexmedetomidine HCl 200 mcg/ Sodium Chloride 50 ml @ 0 mls/hr CONT PRN IV PER PROTOCOL; Start 10/11/18 at 09:45 Sodium Chloride 500 ml @ 500 mls/hr 1X PRN PRN IV SEE COMMENTS; Start 10/11/18 at 09:45 Atropine Sulfate (ATROPINE 0.5mg SYRINGE) 0.5 mg PRN Q5MIN PRN IV SEE COMMENTS; Start 5/4/19 at 09:45 Sodium Bicarbonate (Sodium Bicarb Adult 8.4% Syr) 50 meq STK-MED ONCE .ROUTE ; Start 10/11/18 at 09:42; Stop 10/11/18 at 09:43; Status DC Sodium Bicarbonate (Sodium Bicarb Adult 8.4% Syr) 100 meq 1X ONCE IV Last administered on 10/11/18at 10:00; Start 10/11/18 at 10:00; Stop 10/11/18 at 10:01; Status DC Active Scripts Active Lactulose 20 Gm/30 Ml Solution 20 Gm PO PRN TID PRN 30 Days Klor-Con M20 (Potassium Chloride) 20 Meq Tab.er.prt 40 Meq PO DAILY 30 Days [Pantoprazole] 40 MG Tablet.dr 40 Mg PO DAILYAC 30 Days Hydroxyzine Pamoate 25 Mg Capsule 25 Mg PO PRN Q8HRS PRN 30 Days Aspirin Ec (Aspirin) 81 Mg Tablet.dr 81 Mg PO DAILYWBKFT 30 Days [Diltiazem Hcl] 240 MG Cap.er.24h 240 Mg PO DAILY 30 Days Metoprolol Tartrate 25 Mg Tablet 25 Mg PO BID 30 Days Vitamin B-1 (Thiamine Mononitrate) 100 Mg Tablet 100 Mg PO DAILY Hydrocodone-Apap 7.5-325 (Hydrocodone Bit/Acetaminophen) 1 Each Tablet 1 Tab PO PRN Q3HRS PRN Folic Acid 1 Mg Tablet 1 Mg PO DAILY Reported Tums (Calcium Carbonate) 300 Mg Tab.chew 300 Mg PO TIDAC PRN Cyclobenzaprine Hcl 10 Mg Tablet 1 Tab PO QHS Gabapentin (Gabapentin) 300 Mg Capsule 300 Mg PO TID Allergies Allergies: Coded Allergies: lisinopril (Verified Allergy, Severe, Swelling, 01/27/17) ANGIOEDEMA ROS Review of System UNABLE TO OBTAIN Physical Exam General: Cooperative, mild distress HEENT: Atraumatic, PERRLA, EOMI, Mucous membr. moist/pink Lungs: Clear to auscultation Heart: Regular rate, Normal S2 Abdomen: Normal bowel sounds, Soft, No tenderness Extremities: No clubbing Skin: No breakdown, No significant lesion Neuro: Other (CONFUSED) Psych/Mental Status: Other (CONFUSED) MUSCULOSKELETAL: No joint tenderness, No deformity Vitals VITALS Vital Signs Date Time Temp Pulse Resp B/P (MAP) Pulse Ox O2 Delivery O2 Flow Rate FiO2 10/11/18 06:00 67 30 108/78 (88) 100 Nasal Cannula 5.0 10/11/18 05:32 97.5 97.5 Labs Labs Laboratory Tests Test 10/10/18 21:07 10/10/18 21:45 10/10/18 21:57 10/10/18 22:30 Urine Collection Type Unknown Urine Color Barbara Urine Clarity Clear Urine pH 5.5 Urine Specific [place] 1.020 Urine Protein 100 mg/dL (NEG-TRACE) Urine Glucose (UA) Negative mg/dL (NEG) Urine Ketones (Stick) Trace mg/dL (NEG) Urine Blood Small (NEG) Urine Nitrite Negative (NEG) Urine Bilirubin Small (NEG) Urine Urobilinogen Dipstick 1.0 mg/dL (0.2 mg/dL) Urine Leukocyte Esterase Negative (NEG) Urine RBC 3-5 /HPF (0-2) Urine WBC Occ /HPF (0-4) Urine Squamous Epithelial Cells Occ /LPF Urine Bacteria 0 /HPF (0-FEW) Urine Hyaline Casts Many /HPF Urine Mucus Marked /LPF Urine Opiates Screen Neg (NEG) Urine Methadone Screen Neg (NEG) Urine Barbiturates Neg (NEG) Urine Phencyclidine Screen Neg (NEG) Urine Amphetamine/Methamphetamine Neg (NEG) Urine Benzodiazepines Screen Neg (NEG) Urine Cocaine Screen Neg (NEG) Urine Cannabinoids Screen Neg (NEG) Urine Ethyl Alcohol Neg (NEG) Glucose (Fingerstick) 137 mg/dL (70-99) Stool Occult Blood Positive (NEG) O2 Saturation 98 % (92-99) Arterial Blood pH 7.18 (7.35-7.45) Arterial Blood pCO2 at Patient Temp < 15 mmHg (35-46) Arterial Blood pO2 at Patient Temp 134 mmHg (65-108) Arterial Blood HCO3 5 mmol/L (21-28) Arterial Blood Base Excess -21 mmol/L (-3-3) White Blood Count 14.7 x10^3/uL (4.0-11.0) Red Blood Count 3.26 x10^6/uL (4.30-5.70) Hemoglobin 6.5 g/dL (13.0-17.5) Hematocrit 23.4 % (39.0-53.0) Mean Corpuscular Volume 72 fL (79-100) Mean Corpuscular Hemoglobin 20 pg (25-35) Mean Corpuscular Hemoglobin Concent 28 g/dL (31-37) Red Cell Distribution Width 27.3 % (11.5-14.5) Platelet Count 141 x10^3/uL (140-400) Neutrophils (%) (Auto) 81 % (31-73) Lymphocytes (%) (Auto) 7 % (24-48) Monocytes (%) (Auto) 11 % (0-9) Eosinophils (%) (Auto) 1 % (0-3) Basophils (%) (Auto) 0 % (0-3) Neutrophils # (Auto) 11.9 x10^3uL (1.8-7.7) Lymphocytes # (Auto) 1.0 x10^3/uL (1.0-4.8) Monocytes # (Auto) 1.5 x10^3/uL (0.0-1.1) Eosinophils # (Auto) 0.1 x10^3/uL (0.0-0.7) Basophils # (Auto) 0.0 x10^3/uL (0.0-0.2) Segmented Neutrophils % 80 % (35-66) Band Neutrophils % 9 % (0-9) Lymphocytes % 7 % (24-48) Monocytes % 4 % (0-10) Nucleated Red Blood Cells 6 Platelet Estimate Adequate (ADEQUATE) Polychromasia Slight Hypochromasia Mod Anisocytosis Marked Microcytosis Mod Ovalocytes Few [place] Cells Many Schistocytes Few Prothrombin Time 52.5 SEC (11.7-14.0) Prothromb Time International Ratio 5.8 (0.8-1.1) Sodium Level 136 mmol/L (136-145) Potassium Level 5.1 mmol/L (3.5-5.1) Chloride Level 101 mmol/L (98-107) Carbon Dioxide Level 10 mmol/L (21-32) Anion Gap 25 (6-14) Blood Urea Nitrogen 49 mg/dL (8-26) Creatinine 3.6 mg/dL (0.7-1.3) Estimated GFR (Cockcroft-Gault) 17.3 BUN/Creatinine Ratio 14 (6-20) Glucose Level 129 mg/dL (70-99) Lactic Acid Level 14.9 mmol/L (0.4-2.0) Calcium Level 7.7 mg/dL (8.5-10.1) Magnesium Level 2.1 mg/dL (1.8-2.4) Total Bilirubin 2.9 mg/dL (0.2-1.0) Aspartate Amino Transf (AST/SGOT) 4514 U/L (15-37) Alanine Aminotransferase (ALT/SGPT) 1550 U/L (16-63) Alkaline Phosphatase 104 U/L (46-116) Creatine Kinase 210 U/L (39-308) Troponin I Quantitative 0.073 ng/mL (0.000-0.055) MU-Idd-E-Type Natriuretic Peptide 3776 pg/mL (0-124) Total Protein 5.8 g/dL (6.4-8.2) Albumin 2.7 g/dL (3.4-5.0) Albumin/Globulin Ratio 0.9 (1.0-1.7) Lipase 408 U/L (73-393) Procalcitonin 0.88 ng/mL (0.00-0.10) Acetaminophen Level 2.7 mcg/ml (10-30) Acetaminophen Last Dose Date Unk Acetaminophen Last Dose Time Unk Ethyl Alcohol Level < 10 mg/dL (0-10) Test 10/10/18 22:56 10/10/18 23:41 10/11/18 00:45 10/11/18 02:00 Glucose (Fingerstick) 111 mg/dL (70-99) Ammonia 28 mcmol/L (11-34) O2 Saturation 97 % (92-99) Arterial Blood pH 7.19 (7.35-7.45) Arterial Blood pCO2 at Patient Temp 19 mmHg (35-46) Arterial Blood pO2 at Patient Temp 125 mmHg (65-108) Arterial Blood HCO3 7 mmol/L (21-28) Arterial Blood Base Excess -19 mmol/L (-3-3) FiO2 40% Lactic Acid Level 13.3 mmol/L (0.4-2.0) Test 10/11/18 05:40 10/11/18 08:00 10/11/18 08:10 White Blood Count 12.0 x10^3/uL (4.0-11.0) Red Blood Count 4.01 x10^6/uL (4.30-5.70) Hemoglobin 8.4 g/dL (13.0-17.5) Hematocrit 28.4 % (39.0-53.0) Mean Corpuscular Volume 71 fL (79-100) Mean Corpuscular Hemoglobin 21 pg (25-35) Mean Corpuscular Hemoglobin Concent 30 g/dL (31-37) Red Cell Distribution Width 27.6 % (11.5-14.5) Platelet Count 146 x10^3/uL (140-400) Neutrophils (%) (Auto) 82 % (31-73) Lymphocytes (%) (Auto) 8 % (24-48) Monocytes (%) (Auto) 8 % (0-9) Eosinophils (%) (Auto) 1 % (0-3) Basophils (%) (Auto) 0 % (0-3) Neutrophils # (Auto) 9.9 x10^3uL (1.8-7.7) Lymphocytes # (Auto) 1.0 x10^3/uL (1.0-4.8) Monocytes # (Auto) 1.0 x10^3/uL (0.0-1.1) Eosinophils # (Auto) 0.1 x10^3/uL (0.0-0.7) Basophils # (Auto) 0.0 x10^3/uL (0.0-0.2) Sodium Level 134 mmol/L (136-145) Potassium Level 5.6 mmol/L (3.5-5.1) Chloride Level 96 mmol/L (98-107) Carbon Dioxide Level 15 mmol/L (21-32) Anion Gap 23 (6-14) Blood Urea Nitrogen 60 mg/dL (8-26) Creatinine 4.1 mg/dL (0.7-1.3) Estimated GFR (Cockcroft-Gault) 14.9 BUN/Creatinine Ratio 15 (6-20) Glucose Level 114 mg/dL (70-99) Calcium Level 8.1 mg/dL (8.5-10.1) Total Bilirubin 3.6 mg/dL (0.2-1.0) Aspartate Amino Transf (AST/SGOT) 7583 U/L (15-37) Alanine Aminotransferase (ALT/SGPT) 2622 U/L (16-63) Alkaline Phosphatase 124 U/L (46-116) Total Protein 6.6 g/dL (6.4-8.2) Albumin 3.3 g/dL (3.4-5.0) Albumin/Globulin Ratio 1.0 (1.0-1.7) Salicylates Level < 2.8 mg/dL (2.8-20.0) Salicylate Last Dose Date 10/10/18 Salicylate Last Dose Time 1130 Prothrombin Time 48.2 SEC (11.7-14.0) Prothromb Time International Ratio 5.2 (0.8-1.1) Activated Partial Thromboplast Time 41 SEC (24-38) Laboratory Tests Test 10/10/18 21:07 10/10/18 21:45 10/10/18 21:57 10/10/18 22:30 Urine Collection Type Unknown Urine Color Barbara Urine Clarity Clear Urine pH 5.5 Urine Specific [place] 1.020 Urine Protein 100 mg/dL (NEG-TRACE) Urine Glucose (UA) Negative mg/dL (NEG) Urine Ketones (Stick) Trace mg/dL (NEG) Urine Blood Small (NEG) Urine Nitrite Negative (NEG) Urine Bilirubin Small (NEG) Urine Urobilinogen Dipstick 1.0 mg/dL (0.2 mg/dL) Urine Leukocyte Esterase Negative (NEG) Urine RBC 3-5 /HPF (0-2) Urine WBC Occ /HPF (0-4) Urine Squamous Epithelial Cells Occ /LPF Urine Bacteria 0 /HPF (0-FEW) Urine Hyaline Casts Many /HPF Urine Mucus Marked /LPF Urine Opiates Screen Neg (NEG) Urine Methadone Screen Neg (NEG) Urine Barbiturates Neg (NEG) Urine Phencyclidine Screen Neg (NEG) Urine Amphetamine/Methamphetamine Neg (NEG) Urine Benzodiazepines Screen Neg (NEG) Urine Cocaine Screen Neg (NEG) Urine Cannabinoids Screen Neg (NEG) Urine Ethyl Alcohol Neg (NEG) Glucose (Fingerstick) 137 mg/dL (70-99) Stool Occult Blood Positive (NEG) O2 Saturation 98 % (92-99) Arterial Blood pH 7.18 (7.35-7.45) Arterial Blood pCO2 at Patient Temp < 15 mmHg (35-46) Arterial Blood pO2 at Patient Temp 134 mmHg (65-108) Arterial Blood HCO3 5 mmol/L (21-28) Arterial Blood Base Excess -21 mmol/L (-3-3) White Blood Count 14.7 x10^3/uL (4.0-11.0) Red Blood Count 3.26 x10^6/uL (4.30-5.70) Hemoglobin 6.5 g/dL (13.0-17.5) Hematocrit 23.4 % (39.0-53.0) Mean Corpuscular Volume 72 fL (79-100) Mean Corpuscular Hemoglobin 20 pg (25-35) Mean Corpuscular Hemoglobin Concent 28 g/dL (31-37) Red Cell Distribution Width 27.3 % (11.5-14.5) Platelet Count 141 x10^3/uL (140-400) Neutrophils (%) (Auto) 81 % (31-73) Lymphocytes (%) (Auto) 7 % (24-48) Monocytes (%) (Auto) 11 % (0-9) Eosinophils (%) (Auto) 1 % (0-3) Basophils (%) (Auto) 0 % (0-3) Neutrophils # (Auto) 11.9 x10^3uL (1.8-7.7) Lymphocytes # (Auto) 1.0 x10^3/uL (1.0-4.8) Monocytes # (Auto) 1.5 x10^3/uL (0.0-1.1) Eosinophils # (Auto) 0.1 x10^3/uL (0.0-0.7) Basophils # (Auto) 0.0 x10^3/uL (0.0-0.2) Segmented Neutrophils % 80 % (35-66) Band Neutrophils % 9 % (0-9) Lymphocytes % 7 % (24-48) Monocytes % 4 % (0-10) Nucleated Red Blood Cells 6 Platelet Estimate Adequate (ADEQUATE) Polychromasia Slight Hypochromasia Mod Anisocytosis Marked Microcytosis Mod Ovalocytes Few [place] Cells Many Schistocytes Few Prothrombin Time 52.5 SEC (11.7-14.0) Prothromb Time International Ratio 5.8 (0.8-1.1) Sodium Level 136 mmol/L (136-145) Potassium Level 5.1 mmol/L (3.5-5.1) Chloride Level 101 mmol/L (98-107) Carbon Dioxide Level 10 mmol/L (21-32) Anion Gap 25 (6-14) Blood Urea Nitrogen 49 mg/dL (8-26) Creatinine 3.6 mg/dL (0.7-1.3) Estimated GFR (Cockcroft-Gault) 17.3 BUN/Creatinine Ratio 14 (6-20) Glucose Level 129 mg/dL (70-99) Lactic Acid Level 14.9 mmol/L (0.4-2.0) Calcium Level 7.7 mg/dL (8.5-10.1) Magnesium Level 2.1 mg/dL (1.8-2.4) Total Bilirubin 2.9 mg/dL (0.2-1.0) Aspartate Amino Transf (AST/SGOT) 4514 U/L (15-37) Alanine Aminotransferase (ALT/SGPT) 1550 U/L (16-63) Alkaline Phosphatase 104 U/L (46-116) Creatine Kinase 210 U/L (39-308) Troponin I Quantitative 0.073 ng/mL (0.000-0.055) ON-Mnl-R-Type Natriuretic Peptide 3776 pg/mL (0-124) Total Protein 5.8 g/dL (6.4-8.2) Albumin 2.7 g/dL (3.4-5.0) Albumin/Globulin Ratio 0.9 (1.0-1.7) Lipase 408 U/L (73-393) Procalcitonin 0.88 ng/mL (0.00-0.10) Acetaminophen Level 2.7 mcg/ml (10-30) Acetaminophen Last Dose Date Unk Acetaminophen Last Dose Time Unk Ethyl Alcohol Level < 10 mg/dL (0-10) Test 10/10/18 22:56 10/10/18 23:41 10/11/18 00:45 10/11/18 02:00 Glucose (Fingerstick) 111 mg/dL (70-99) Ammonia 28 mcmol/L (11-34) O2 Saturation 97 % (92-99) Arterial Blood pH 7.19 (7.35-7.45) Arterial Blood pCO2 at Patient Temp 19 mmHg (35-46) Arterial Blood pO2 at Patient Temp 125 mmHg (65-108) Arterial Blood HCO3 7 mmol/L (21-28) Arterial Blood Base Excess -19 mmol/L (-3-3) FiO2 40% Lactic Acid Level 13.3 mmol/L (0.4-2.0) Test 10/11/18 05:40 10/11/18 08:00 10/11/18 08:10 White Blood Count 12.0 x10^3/uL (4.0-11.0) Red Blood Count 4.01 x10^6/uL (4.30-5.70) Hemoglobin 8.4 g/dL (13.0-17.5) Hematocrit 28.4 % (39.0-53.0) Mean Corpuscular Volume 71 fL (79-100) Mean Corpuscular Hemoglobin 21 pg (25-35) Mean Corpuscular Hemoglobin Concent 30 g/dL (31-37) Red Cell Distribution Width 27.6 % (11.5-14.5) Platelet Count 146 x10^3/uL (140-400) Neutrophils (%) (Auto) 82 % (31-73) Lymphocytes (%) (Auto) 8 % (24-48) Monocytes (%) (Auto) 8 % (0-9) Eosinophils (%) (Auto) 1 % (0-3) Basophils (%) (Auto) 0 % (0-3) Neutrophils # (Auto) 9.9 x10^3uL (1.8-7.7) Lymphocytes # (Auto) 1.0 x10^3/uL (1.0-4.8) Monocytes # (Auto) 1.0 x10^3/uL (0.0-1.1) Eosinophils # (Auto) 0.1 x10^3/uL (0.0-0.7) Basophils # (Auto) 0.0 x10^3/uL (0.0-0.2) Sodium Level 134 mmol/L (136-145) Potassium Level 5.6 mmol/L (3.5-5.1) Chloride Level 96 mmol/L (98-107) Carbon Dioxide Level 15 mmol/L (21-32) Anion Gap 23 (6-14) Blood Urea Nitrogen 60 mg/dL (8-26) Creatinine 4.1 mg/dL (0.7-1.3) Estimated GFR (Cockcroft-Gault) 14.9 BUN/Creatinine Ratio 15 (6-20) Glucose Level 114 mg/dL (70-99) Calcium Level 8.1 mg/dL (8.5-10.1) Total Bilirubin 3.6 mg/dL (0.2-1.0) Aspartate Amino Transf (AST/SGOT) 7583 U/L (15-37) Alanine Aminotransferase (ALT/SGPT) 2622 U/L (16-63) Alkaline Phosphatase 124 U/L (46-116) Total Protein 6.6 g/dL (6.4-8.2) Albumin 3.3 g/dL (3.4-5.0) Albumin/Globulin Ratio 1.0 (1.0-1.7) Salicylates Level < 2.8 mg/dL (2.8-20.0) Salicylate Last Dose Date 10/10/18 Salicylate Last Dose Time 1130 Prothrombin Time 48.2 SEC (11.7-14.0) Prothromb Time International Ratio 5.2 (0.8-1.1) Activated Partial Thromboplast Time 41 SEC (24-38) Images Images IMPRESSION: 1. Limited exam due to patient mental status. 2. Cholelithiasis. There is superimposed gallbladder wall thickening which may be due to cholecystitis or intrinsic liver disease. The common bile duct is obscured. 3. 6.0 cm right renal cyst and prominent right renal pelvis likely due to a parapelvic cyst rather than hydronephrosis. There is an additional hypodense lesion within the right kidney on the prior CT which demonstrates no clear sonographic correlate. This remains indeterminant. 4. Distended stomach containing echogenic bolus. 5. Right pleural effusion. Impression: 1. No acute intracranial bleed or acute calvarial fracture. 2. Moderate atrophy with white matter changes likely secondary to chronic microvascular ischemic disease. Indication:Trauma. Head and neck pain. TECHNIQUE: CT of the cervical spine without IV contrast with multiplanar reformats. COMPARISON:None FINDINGS: The cervical spine is in normal anatomic alignment. Atlantoaxial joint interval is preserved. No compression deformity. Facet joints are in normal anatomic alignment with multilevel facet arthropathy. No acute fractures. Intervertebral disc space narrowing is seen in the C5-C6 and C6-7 level. Noncontrast soft tissues through the neck are within normal limits. IMPRESSION: 1. No acute fractures. 2. Degenerative disc disease with associated facet arthropathy. Assessment/Plan Assessment/Plan IMP NATHANIEL MET ACIDOSIS-SEVERE AND LIFE THREATENING MET ENCEPHALOPATHY SEPSIS ANEMIA AFIB RVR LIVER FAILURE WITH HEP C COAGULOPATHY HYPERKALEMIA HYPONATREMIA PLAN HYDRATION HCO3 GI EVALUATION ANTIBIOTICS PRESSORS NEEDED WILL HAVE IR PLACE TEMP HD CATHETER WILL THEN PROCEED WITH EMERGENT HD WILL USE HIGH HCO3 DIALYSATE WITH NO ANTICOAGULATION MINIMAL UF TOLERATED SUJATHA VOSS MD October 11, 2018 11:27
[2018-10-11 11:41] LABS: BASO % 0 % (0-3); EOS % 0 % (0-3); HEMATOCRIT 26.8 % (39.0-53.0); HEMOGLOBIN 8.2 g/dL (13.0-17.5); LYMPH # 0.7 x10^3/uL (1.0-4.8); LYMPH % 8 % (24-48); MEAN CORPUSCULAR HEMOGLOBIN 21 pg (25-35); MEAN CORPUSCULAR HGB CONC 31 g/dL (31-37); MEAN CORPUSCULAR VOLUME 68 fL (79-100); MONO # 0.5 x10^3/uL (0.0-1.1); MONO % 5 % (0-9); NEUT # 8.5 x10^3uL (1.8-7.7); NEUT % 87 % (31-73); PLATELET COUNT 123 x10^3/uL (140-400); RED BLOOD COUNT 3.96 x10^6/uL (4.30-5.70); RED CELL DISTRIBUTION WIDTH 27.2 % (11.5-14.5); WHITE BLOOD COUNT 9.7 x10^3/uL (4.0-11.0)
--- NOTE | 2018-10-11 11:41 | PDOC2 ---
NEUROLOGY CONSULT Date of Admission Date of Admission DATE: 10/11/18 TIME: 11:29 Reason for Consult Reason for Consult: Encephalopathy Referring Physician Referring Physician: Dr. Newell Source Source: Chart review History of Present Illness History of Present Illness The patient is a 63-year-old right-handed male with known alcoholic liver disease and encephalopathy who presents with weakness. He was just discharged a week ago for atrial fibrillation with rapid ventricular response. We are not sure when his last alcoholic beverage was. He is unable to give history as he is sedated. I see no history of seizure or stroke. Past Medical History Cardiovascular: AFIB, HTN Hepatobiliary: Hep A/B/C (C) Past Surgical History Past Surgical History: No pertinent history Family History Family History: Other (Alzheimer's) Social History Social History Alcoholic, we don't know his last drink, no tobacco Current Medications Current Medications Current Medications Sodium Chloride 1,000 ml @ 1,000 mls/hr 1X ONCE IV Last administered on 10/10/18at 22:43; Start 10/10/18 at 22:00; Stop 10/10/18 at 22:59; Status DC Sodium Chloride 1,000 ml @ 1,000 mls/hr 1X ONCE IV Last administered on 10/10/18at 22:42; Start 10/10/18 at 22:00; Stop 10/10/18 at 22:59; Status DC Piperacillin Sod/ Tazobactam Sod (Zosyn Per Pharmacy) 1 each PRN DAILY PRN MC SEE COMMENTS; Start 10/10/18 at 22:00; Stop 10/10/18 at 22:33; Status DC Piperacillin Sod/ Tazobactam Sod 3.375 gm/Sodium Chloride 50 ml @ 100 mls/hr 1X ONCE IV Last administered on 10/10/18at 22:44; Start 10/10/18 at 22:15; Stop 10/10/18 at 22:44; Status DC Sodium Bicarbonate (Sodium Bicarb Adult 8.4% Syr) 50 meq 1X ONCE IV Last administered on 10/10/18at 22:43; Start 10/10/18 at 22:30; Stop 10/10/18 at 22:31; Status DC Calcium Gluconate (Calcium Gluconate) 1,000 mg 1X ONCE IVP Last administered on 10/10/18at 22:43; Start 10/10/18 at 22:30; Stop 10/10/18 at 22:31; Status DC Piperacillin Sod/ Tazobactam Sod (Zosyn Per Pharmacy) 1 each PRN DAILY PRN MC SEE COMMENTS; Start 10/10/18 at 22:45 Pantoprazole Sodium 80 mg/ Sodium Chloride 100 ml @ 10 mls/hr Q10H IV Last administered on 10/11/18at 10:39; Start 10/10/18 at 23:30 Phytonadione 10 mg/Dextrose 51 ml @ 102 mls/hr 1X ONCE IV Last administered on 10/10/18at 23:46; Start 10/10/18 at 23:30; Stop 10/10/18 at 23:59; Status DC Octreotide Acetate 500 mcg/ Sodium Chloride 101 ml @ 0 mls/hr CONT PRN IV SEE I/O RECORD Last administered on 10/10/18at 23:45; Start 10/10/18 at 23:45 Sodium Bicarbonate 50 meq/Dextrose 1,050 ml @ 125 mls/hr 1X ONCE IV Last a dministered on 10/11/18at 00:01; Start 10/10/18 at 23:55; Stop 10/11/18 at 08:18; Status DC Piperacillin Sod/ Tazobactam Sod 2.25 gm/Sodium Chloride 50 ml @ 100 mls/hr Q6HRS IV Last administered on 10/11/18at 05:30; Start 10/11/18 at 06:00; Stop 10/11/18 at 08:25; Status DC Meropenem 500 mg/ Sodium Chloride 50 ml @ 100 mls/hr Q8HRS IV ; Start 10/11/18 at 14:00; Stop 10/11/18 at 14:00; Status DC Ondansetron HCl (Zofran) 4 mg 1X ONCE IV Last administered on 10/11/18at 06:41; Start 10/11/18 at 06:45; Stop 10/11/18 at 06:46; Status DC Thiamine HCl 100 mg/Dextrose 51 ml @ 102 mls/hr 1X ONCE IV Last administered on 10/11/18at 07:40; Start 10/11/18 at 07:00; Stop 10/11/18 at 07:29; Status DC Folic Acid (Folic Acid) 1 mg DAILY PO ; Start 10/11/18 at 09:00 Levofloxacin/ Dextrose 50 ml @ 50 mls/hr 1X ONCE IV Last administered on 10/11/18at 07:42; Start 10/11/18 at 07:00; Stop 10/11/18 at 07:59; Status DC Albuterol Sulfate (Ventolin Neb Soln) 2.5 mg PRN Q4HRS PRN NEB SHORTNESS OF BREATH; Start 10/11/18 at 07:15 Lorazepam (Ativan) 1 mg 1X ONCE IV Last administered on 10/11/18at 07:37; Start 10/11/18 at 07:30; Stop 10/11/18 at 09:35; Status DC Lorazepam (Ativan) 1 mg PRN Q3HRS PRN IV ANXIETY / AGITATION; Start 10/11/18 at 08:00; Stop 10/11/18 at 09:35; Status DC Piperacillin Sod/ Tazobactam Sod 2.25 gm/Sodium Chloride 50 ml @ 100 mls/hr Q8HRS IV ; Start 10/11/18 at 14:00 Ondansetron HCl (Zofran) 4 mg PRN Q6HRS PRN IV NAUSEA/VOMITING; Start 10/11/18 at 08:45 Lactulose (Lactulose) 30 gm TID PO ; Start 10/11/18 at 09:30; Stop 10/11/18 at 11:25; Status DC Sodium Bicarbonate 50 meq/Dextrose 1,050 ml @ 125 mls/hr Q8H24M IV Last administered on 10/11/18at 09:21; Start 10/11/18 at 10:00 Dexmedetomidine HCl 200 mcg/ Sodium Chloride 50 ml @ 0 mls/hr CONT PRN IV PER PROTOCOL; Start 10/11/18 at 09:45 Sodium Chloride 500 ml @ 500 mls/hr 1X PRN PRN IV SEE COMMENTS; Start 10/11/18 at 09:45 Atropine Sulfate (ATROPINE 0.5mg SYRINGE) 0.5 mg PRN Q5MIN PRN IV SEE COMMENTS; Start 10/11/18 at 09:45 Sodium Bicarbonate (Sodium Bicarb Adult 8.4% Syr) 50 meq STK-MED ONCE .ROUTE ; Start 10/11/18 at 09:42; Stop 10/11/18 at 09:43; Status DC Sodium Bicarbonate (Sodium Bicarb Adult 8.4% Syr) 100 meq 1X ONCE IV Last administered on 10/11/18at 10:00; Start 10/11/18 at 10:00; Stop 10/11/18 at 10:01; Status DC Lactulose (Lactulose) 30 gm TID TN ; Start 10/11/18 at 12:00; Status UNV Active Scripts Active Lactulose 20 Gm/30 Ml Solution 20 Gm PO PRN TID PRN 30 Days Klor-Con M20 (Potassium Chloride) 20 Meq Tab.er.prt 40 Meq PO DAILY 30 Days [Pantoprazole] 40 MG Tablet.dr 40 Mg PO DAILYAC 30 Days Hydroxyzine Pamoate 25 Mg Capsule 25 Mg PO PRN Q8HRS PRN 30 Days Aspirin Ec (Aspirin) 81 Mg Tablet.dr 81 Mg PO DAILYWBKFT 30 Days [Diltiazem Hcl] 240 MG Cap.er.24h 240 Mg PO DAILY 30 Days Metoprolol Tartrate 25 Mg Tablet 25 Mg PO BID 30 Days Vitamin B-1 (Thiamine Mononitrate) 100 Mg Tablet 100 Mg PO DAILY Hydrocodone-Apap 7.5-325 (Hydrocodone Bit/Acetaminophen) 1 Each Tablet 1 Tab PO PRN Q3HRS PRN Folic Acid 1 Mg Tablet 1 Mg PO DAILY Reported Tums (Calcium Carbonate) 300 Mg Tab.chew 300 Mg PO TIDAC PRN Cyclobenzaprine Hcl 10 Mg Tablet 1 Tab PO QHS Gabapentin (Gabapentin) 300 Mg Capsule 300 Mg PO TID Allergies Allergies: Coded Allergies: lisinopril (Verified Allergy, Severe, Swelling, 01/27/17) ANGIOEDEMA ROS Review of System Unobtainable, patient sedated Physical Exam Physical Examination General: Well-developed, well-nourished white male in no acute distress HEENT:Tympanic membranes clear.Temporal arteriespulsatile and nontender. Neck: Supple without bruit, no meningismus Musculoskeletal: Stability:see neurologic. Gait exam:see neurologic. Tone:see neurologic. Strength:see neurologic. Neurological: Mental Status:orientation, memory, attention span/concentration, language, fund of knowledge: He just received some Ativan, he is sedated, does not respond to voice or follow commands. Cranial Nerves:Pupils equal and reactive to light, extraocular movements areintact, There is no facial asymmetry. All other cranial related problems are negative except as mentioned before.Reflexes:2+ and symmetric with flexor plantar responses. Motor:Moves all extremities sponta neously. I do note some asterixis with extension of the hands. Coordination: Not cooperative. Gait:Not tested. Sensory:Not cooperative. Vitals VITALS Vital Signs Date Time Temp Pulse Resp B/P (MAP) Pulse Ox O2 Delivery O2 Flow Rate FiO2 10/11/18 06:00 67 30 108/78 (88) 100 Nasal Cannula 5.0 10/11/18 05:32 97.5 97.5 Labs Labs Laboratory Tests Test 10/10/18 21:07 10/10/18 21:45 10/10/18 21:57 10/10/18 22:30 Urine Collection Type Unknown Urine Color Barbara Urine Clarity Clear Urine pH 5.5 Urine Specific [place] 1.020 Urine Protein 100 mg/dL (NEG-TRACE) Urine Glucose (UA) Negative mg/dL (NEG) Urine Ketones (Stick) Trace mg/dL (NEG) Urine Blood Small (NEG) Urine Nitrite Negative (NEG) Urine Bilirubin Small (NEG) Urine Urobilinogen Dipstick 1.0 mg/dL (0.2 mg/dL) Urine Leukocyte Esterase Negative (NEG) Urine RBC 3-5 /HPF (0-2) Urine WBC Occ /HPF (0-4) Urine Squamous Epithelial Cells Occ /LPF Urine Bacteria 0 /HPF (0-FEW) Urine Hyaline Casts Many /HPF Urine Mucus Marked /LPF Urine Opiates Screen Neg (NEG) Urine Methadone Screen Neg (NEG) Urine Barbiturates Neg (NEG) Urine Phencyclidine Screen Neg (NEG) Urine Amphetamine/Methamphetamine Neg (NEG) Urine Benzodiazepines Screen Neg (NEG) Urine Cocaine Screen Neg (NEG) Urine Cannabinoids Screen Neg (NEG) Urine Ethyl Alcohol Neg (NEG) Glucose (Fingerstick) 137 mg/dL (70-99) Stool Occult Blood Positive (NEG) O2 Saturation 98 % (92-99) Arterial Blood pH 7.18 (7.35-7.45) Arterial Blood pCO2 at Patient Temp < 15 mmHg (35-46) Arterial Blood pO2 at Patient Temp 134 mmHg (65-108) Arterial Blood HCO3 5 mmol/L (21-28) Arterial Blood Base Excess -21 mmol/L (-3-3) White Blood Count 14.7 x10^3/uL (4.0-11.0) Red Blood Count 3.26 x10^6/uL (4.30-5.70) Hemoglobin 6.5 g/dL (13.0-17.5) Hematocrit 23.4 % (39.0-53.0) Mean Corpuscular Volume 72 fL (79-100) Mean Corpuscular Hemoglobin 20 pg (25-35) Mean Corpuscular Hemoglobin Concent 28 g/dL (31-37) Red Cell Distribution Width 27.3 % (11.5-14.5) Platelet Count 141 x10^3/uL (140-400) Neutrophils (%) (Auto) 81 % (31-73) Lymphocytes (%) (Auto) 7 % (24-48) Monocytes (%) (Auto) 11 % (0-9) Eosinophils (%) (Auto) 1 % (0-3) Basophils (%) (Auto) 0 % (0-3) Neutrophils # (Auto) 11.9 x10^3uL (1.8-7.7) Lymphocytes # (Auto) 1.0 x10^3/uL (1.0-4.8) Monocytes # (Auto) 1.5 x10^3/uL (0.0-1.1) Eosinophils # (Auto) 0.1 x10^3/uL (0.0-0.7) Basophils # (Auto) 0.0 x10^3/uL (0.0-0.2) Segmented Neutrophils % 80 % (35-66) Band Neutrophils % 9 % (0-9) Lymphocytes % 7 % (24-48) Monocytes % 4 % (0-10) Nucleated Red Blood Cells 6 Platelet Estimate Adequate (ADEQUATE) Polychromasia Slight Hypochromasia Mod Anisocytosis Marked Microcytosis Mod Ovalocytes Few [place] Cells Many Schistocytes Few Prothrombin Time 52.5 SEC (11.7-14.0) Prothromb Time International Ratio 5.8 (0.8-1.1) Sodium Level 136 mmol/L (136-145) Potassium Level 5.1 mmol/L (3.5-5.1) Chloride Level 101 mmol/L (98-107) Carbon Dioxide Level 10 mmol/L (21-32) Anion Gap 25 (6-14) Blood Urea Nitrogen 49 mg/dL (8-26) Creatinine 3.6 mg/dL (0.7-1.3) Estimated GFR (Cockcroft-Gault) 17.3 BUN/Creatinine Ratio 14 (6-20) Glucose Level 129 mg/dL (70-99) Lactic Acid Level 14.9 mmol/L (0.4-2.0) Calcium Level 7.7 mg/dL (8.5-10.1) Magnesium Level 2.1 mg/dL (1.8-2.4) Total Bilirubin 2.9 mg/dL (0.2-1.0) Aspartate Amino Transf (AST/SGOT) 4514 U/L (15-37) Alanine Aminotransferase (ALT/SGPT) 1550 U/L (16-63) Alkaline Phosphatase 104 U/L (46-116) Creatine Kinase 210 U/L (39-308) Troponin I Quantitative 0.073 ng/mL (0.000-0.055) ZG-Rex-N-Type Natriuretic Peptide 3776 pg/mL (0-124) Total Protein 5.8 g/dL (6.4-8.2) Albumin 2.7 g/dL (3.4-5.0) Albumin/Globulin Ratio 0.9 (1.0-1.7) Lipase 408 U/L (73-393) Procalcitonin 0.88 ng/mL (0.00-0.10) Acetaminophen Level 2.7 mcg/ml (10-30) Acetaminophen Last Dose Date Unk Acetaminophen Last Dose Time Unk Ethyl Alcohol Level < 10 mg/dL (0-10) Test 10/10/18 22:56 10/10/18 23:41 10/11/18 00:45 10/11/18 02:00 Glucose (Fingerstick) 111 mg/dL (70-99) Ammonia 28 mcmol/L (11-34) O2 Saturation 97 % (92-99) Arterial Blood pH 7.19 (7.35-7.45) Arterial Blood pCO2 at Patient Temp 19 mmHg (35-46) Arterial Blood pO2 at Patient Temp 125 mmHg (65-108) Arterial Blood HCO3 7 mmol/L (21-28) Arterial Blood Base Excess -19 mmol/L (-3-3) FiO2 40% Lactic Acid Level 13.3 mmol/L (0.4-2.0) Test 10/11/18 05:40 10/11/18 08:00 10/11/18 08:10 White Blood Count 12.0 x10^3/uL (4.0-11.0) Red Blood Count 4.01 x10^6/uL (4.30-5.70) Hemoglobin 8.4 g/dL (13.0-17.5) Hematocrit 28.4 % (39.0-53.0) Mean Corpuscular Volume 71 fL (79-100) Mean Corpuscular Hemoglobin 21 pg (25-35) Mean Corpuscular Hemoglobin Concent 30 g/dL (31-37) Red Cell Distribution Width 27.6 % (11.5-14.5) Platelet Count 146 x10^3/uL (140-400) Neutrophils (%) (Auto) 82 % (31-73) Lymphocytes (%) (Auto) 8 % (24-48) Monocytes (%) (Auto) 8 % (0-9) Eosinophils (%) (Auto) 1 % (0-3) Basophils (%) (Auto) 0 % (0-3) Neutrophils # (Auto) 9.9 x10^3uL (1.8-7.7) Lymphocytes # (Auto) 1.0 x10^3/uL (1.0-4.8) Monocytes # (Auto) 1.0 x10^3/uL (0.0-1.1) Eosinophils # (Auto) 0.1 x10^3/uL (0.0-0.7) Basophils # (Auto) 0.0 x10^3/uL (0.0-0.2) Sodium Level 134 mmol/L (136-145) Potassium Level 5.6 mmol/L (3.5-5.1) Chloride Level 96 mmol/L (98-107) Carbon Dioxide Level 15 mmol/L (21-32) Anion Gap 23 (6-14) Blood Urea Nitrogen 60 mg/dL (8-26) Creatinine 4.1 mg/dL (0.7-1.3) Estimated GFR (Cockcroft-Gault) 14.9 BUN/Creatinine Ratio 15 (6-20) Glucose Level 114 mg/dL (70-99) Calcium Level 8.1 mg/dL (8.5-10.1) Total Bilirubin 3.6 mg/dL (0.2-1.0) Aspartate Amino Transf (AST/SGOT) 7583 U/L (15-37) Alanine Aminotransferase (ALT/SGPT) 2622 U/L (16-63) Alkaline Phosphatase 124 U/L (46-116) Total Protein 6.6 g/dL (6.4-8.2) Albumin 3.3 g/dL (3.4-5.0) Albumin/Globulin Ratio 1.0 (1.0-1.7) Salicylates Level < 2.8 mg/dL (2.8-20.0) Salicylate Last Dose Date 10/10/18 Salicylate Last Dose Time 1130 Prothrombin Time 48.2 SEC (11.7-14.0) Prothromb Time International Ratio 5.2 (0.8-1.1) Activated Partial Thromboplast Time 41 SEC (24-38) Laboratory Tests Test 10/10/18 21:07 10/10/18 21:45 10/10/18 21:57 10/10/18 22:30 Urine Collection Type Unknown Urine Color Barbara Urine Clarity Clear Urine pH 5.5 Urine Specific [place] 1.020 Urine Protein 100 mg/dL (NEG-TRACE) Urine Glucose (UA) Negative mg/dL (NEG) Urine Ketones (Stick) Trace mg/dL (NEG) Urine Blood Small (NEG) Urine Nitrite Negative (NEG) Urine Bilirubin Small (NEG) Urine Urobilinogen Dipstick 1.0 mg/dL (0.2 mg/dL) Urine Leukocyte Esterase Negative (NEG) Urine RBC 3-5 /HPF (0-2) Urine WBC Occ /HPF (0-4) Urine Squamous Epithelial Cells Occ /LPF Urine Bacteria 0 /HPF (0-FEW) Urine Hyaline Casts Many /HPF Urine Mucus Marked /LPF Urine Opiates Screen Neg (NEG) Urine Methadone Screen Neg (NEG) Urine Barbiturates Neg (NEG) Urine Phencyclidine Screen Neg (NEG) Urine Amphetamine/Methamphetamine Neg (NEG) Urine Benzodiazepines Screen Neg (NEG) Urine Cocaine Screen Neg (NEG) Urine Cannabinoids Screen Neg (NEG) Urine Ethyl Alcohol Neg (NEG) Glucose (Fingerstick) 137 mg/dL (70-99) Stool Occult Blood Positive (NEG) O2 Saturation 98 % (92-99) Arterial Blood pH 7.18 (7.35-7.45) Arterial Blood pCO2 at Patient Temp < 15 mmHg (35-46) Arterial Blood pO2 at Patient Temp 134 mmHg (65-108) Arterial Blood HCO3 5 mmol/L (21-28) Arterial Blood Base Excess -21 mmol/L (-3-3) White Blood Count 14.7 x10^3/uL (4.0-11.0) Red Blood Count 3.26 x10^6/uL (4.30-5.70) Hemoglobin 6.5 g/dL (13.0-17.5) Hematocrit 23.4 % (39.0-53.0) Mean Corpuscular Volume 72 fL (79-100) Mean Corpuscular Hemoglobin 20 pg (25-35) Mean Corpuscular Hemoglobin Concent 28 g/dL (31-37) Red Cell Distribution Width 27.3 % (11.5-14.5) Platelet Count 141 x10^3/uL (140-400) Neutrophils (%) (Auto) 81 % (31-73) Lymphocytes (%) (Auto) 7 % (24-48) Monocytes (%) (Auto) 11 % (0-9) Eosinophils (%) (Auto) 1 % (0-3) Basophils (%) (Auto) 0 % (0-3) Neutrophils # (Auto) 11.9 x10^3uL (1.8-7.7) Lymphocytes # (Auto) 1.0 x10^3/uL (1.0-4.8) Monocytes # (Auto) 1.5 x10^3/uL (0.0-1.1) Eosinophils # (Auto) 0.1 x10^3/uL (0.0-0.7) Basophils # (Auto) 0.0 x10^3/uL (0.0-0.2) Segmented Neutrophils % 80 % (35-66) Band Neutrophils % 9 % (0-9) Lymphocytes % 7 % (24-48) Monocytes % 4 % (0-10) Nucleated Red Blood Cells 6 Platelet Estimate Adequate (ADEQUATE) Polychromasia Slight Hypochromasia Mod Anisocytosis Marked Microcytosis Mod Ovalocytes Few Nicol Cells Many Schistocytes Few Prothrombin Time 52.5 SEC (11.7-14.0) Prothromb Time International Ratio 5.8 (0.8-1.1) Sodium Level 136 mmol/L (136-145) Potassium Level 5.1 mmol/L (3.5-5.1) Chloride Level 101 mmol/L (98-107) Carbon Dioxide Level 10 mmol/L (21-32) Anion Gap 25 (6-14) Blood Urea Nitrogen 49 mg/dL (8-26) Creatinine 3.6 mg/dL (0.7-1.3) Estimated GFR (Cockcroft-Gault) 17.3 BUN/Creatinine Ratio 14 (6-20) Glucose Level 129 mg/dL (70-99) Lactic Acid Level 14.9 mmol/L (0.4-2.0) Calcium Level 7.7 mg/dL (8.5-10.1) Magnesium Level 2.1 mg/dL (1.8-2.4) Total Bilirubin 2.9 mg/dL (0.2-1.0) Aspartate Amino Transf (AST/SGOT) 4514 U/L (15-37) Alanine Aminotransferase (ALT/SGPT) 1550 U/L (16-63) Alkaline Phosphatase 104 U/L (46-116) Creatine Kinase 210 U/L (39-308) Troponin I Quantitative 0.073 ng/mL (0.000-0.055) ND-Dgb-H-Type Natriuretic Peptide 3776 pg/mL (0-124) Total Protein 5.8 g/dL (6.4-8.2) Albumin 2.7 g/dL (3.4-5.0) Albumin/Globulin Ratio 0.9 (1.0-1.7) Lipase 408 U/L (73-393) Procalcitonin 0.88 ng/mL (0.00-0.10) Acetaminophen Level 2.7 mcg/ml (10-30) Acetaminophen Last Dose Date Unk Acetaminophen Last Dose Time Unk Ethyl Alcohol Level < 10 mg/dL (0-10) Test 10/10/18 22:56 10/10/18 23:41 10/11/18 00:45 10/11/18 02:00 Glucose (Fingerstick) 111 mg/dL (70-99) Ammonia 28 mcmol/L (11-34) O2 Saturation 97 % (92-99) Arterial Blood pH 7.19 (7.35-7.45) Arterial Blood pCO2 at Patient Temp 19 mmHg (35-46) Arterial Blood pO2 at Patient Temp 125 mmHg (65-108) Arterial Blood HCO3 7 mmol/L (21-28) Arterial Blood Base Excess -19 mmol/L (-3-3) FiO2 40% Lactic Acid Level 13.3 mmol/L (0.4-2.0) Test 10/11/18 05:40 10/11/18 08:00 10/11/18 08:10 White Blood Count 12.0 x10^3/uL (4.0-11.0) Red Blood Count 4.01 x10^6/uL (4.30-5.70) Hemoglobin 8.4 g/dL (13.0-17.5) Hematocrit 28.4 % (39.0-53.0) Mean Corpuscular Volume 71 fL (79-100) Mean Corpuscular Hemoglobin 21 pg (25-35) Mean Corpuscular Hemoglobin Concent 30 g/dL (31-37) Red Cell Distribution Width 27.6 % (11.5-14.5) Platelet Count 146 x10^3/uL (140-400) Neutrophils (%) (Auto) 82 % (31-73) Lymphocytes (%) (Auto) 8 % (24-48) Monocytes (%) (Auto) 8 % (0-9) Eosinophils (%) (Auto) 1 % (0-3) Basophils (%) (Auto) 0 % (0-3) Neutrophils # (Auto) 9.9 x10^3uL (1.8-7.7) Lymphocytes # (Auto) 1.0 x10^3/uL (1.0-4.8) Monocytes # (Auto) 1.0 x10^3/uL (0.0-1.1) Eosinophils # (Auto) 0.1 x10^3/uL (0.0-0.7) Basophils # (Auto) 0.0 x10^3/uL (0.0-0.2) Sodium Level 134 mmol/L (136-145) Potassium Level 5.6 mmol/L (3.5-5.1) Chloride Level 96 mmol/L (98-107) Carbon Dioxide Level 15 mmol/L (21-32) Anion Gap 23 (6-14) Blood Urea Nitrogen 60 mg/dL (8-26) Creatinine 4.1 mg/dL (0.7-1.3) Estimated GFR (Cockcroft-Gault) 14.9 BUN/Creatinine Ratio 15 (6-20) Glucose Level 114 mg/dL (70-99) Calcium Level 8.1 mg/dL (8.5-10.1) Total Bilirubin 3.6 mg/dL (0.2-1.0) Aspartate Amino Transf (AST/SGOT) 7583 U/L (15-37) Alanine Aminotransferase (ALT/SGPT) 2622 U/L (16-63) Alkaline Phosphatase 124 U/L (46-116) Total Protein 6.6 g/dL (6.4-8.2) Albumin 3.3 g/dL (3.4-5.0) Albumin/Globulin Ratio 1.0 (1.0-1.7) Salicylates Level < 2.8 mg/dL (2.8-20.0) Salicylate Last Dose Date 10/10/18 Salicylate Last Dose Time 1130 Prothrombin Time 48.2 SEC (11.7-14.0) Prothromb Time International Ratio 5.2 (0.8-1.1) Activated Partial Thromboplast Time 41 SEC (24-38) Images Images CT head without IV contrast COMPARISON: None FINDINGS: No pathologic extra-axial or intra-axial fluid collection. Moderate diffuse atrophy with ex vacuo dilation of the ventricles. The basal cisterns are within normal limits. No acute intracranial bleed. Confluent low-attenuation is seen in the periventricular and deep white matter. No large scalp hematoma. No acute fractures. Visualized paranasal sinuses and mastoid air cells are clear. Impression: 1. No acute intracranial bleed or acute calvarial fracture. 2. Moderate atrophy with white matter changes likely secondary to chronic microvascular ischemic disease. Indication:Trauma. Head and neck pain. TECHNIQUE: CT of the cervical spine without IV contrast with multiplanar reformats. COMPARISON:None FINDINGS: The cervical spine is in normal anatomic alignment. Atlantoaxial joint interval is preserved. No compression deformity. Facet joints are in normal anatomic alignment with multilevel facet arthropathy. No acute fractures. Intervertebral disc space narrowing is seen in the C5-C6 and C6-7 level. Noncontrast soft tissues through the neck are within normal limits. IMPRESSION: 1. No acute fractures. 2. Degenerative disc disease with associated facet arthropathy. Assessment/Plan Assessment/Plan Impression: Metabolic encephalopathy in patient with respiratory failure, sepsis, acute liver failure with transaminitis and coagulopathy, gastrointestinal bleed, thrombocytopenia, pneumonia, metabolic acidosis secondary to lactic acidosis, hyperkalemia. Recommendation: * Risks outweigh benefits of placing an NG tube to administer rifaximin. * Continue current supportive medical care. * I note that he is now DO NOT RESUSCITATE, DO NOT INTUBATE. Thank you for letting me help with the patient's care. JESU MORENO MD October 11, 2018 11:41
[2018-10-11] MEDS ORDERED: LACTULOSE 20 GM/30 ML SOLUTION. PR SCH (12:00)
[2018-10-11] MEDS: DEXMEDETOMIDINE 200 MCG in IV NORMAL SALINE 50ML 48 ML IV PRN ×2 (12:10→19:56)
[2018-10-11] MEDS ORDERED: LIDOCAINE WITH 8.4% SOD BICARB 3 ML DISP.SYRIN. ONE (12:34)
[2018-10-11] MEDS ORDERED: HEPARIN for IV BOLUS 10,000 UNIT/10 ML VIAL. ONE (12:34)
[2018-10-11] MEDS ORDERED: IV NORMAL SALINE 1000ML BAG 1,000 ML IV PRN ×2 (13:06)
--- NOTE | 2018-10-11 13:09 | PDOC2 ---
CONSULT Date of Consult Date of Consult DATE: 10/11/18 TIME: 13:04 Reason for Consult Reason for Consult: Rapid atrial fibrillation Referring Physician Referring Physician: Dr. Newell Identification/Chief Complaint Chief Complaint Weakness and decreased level of consciousness. Source Source: Chart review, Patient History of Present Illness Reason for Visit: The patient is a 63-year-old male who reports progressive weakness and was found down by a neighbor. He was then brought to the emergency room by paramedics and was found to have a hemoglobin of 6.6 lactic acid of 13.3. Patient was treated for sepsis, hepatitis and acute blood loss. From a cardiac viewpoint he has a history of atrial fibrillation and was in rapid atrial fibrillation on admission which is significantly improved with a rate of 90 after treatment. He was just recently discharged from the hospital for similar problems. Past Medical History Cardiovascular: AFIB, HTN Pulmonary: No pertinent hx GI: GERD, GI bleed Heme/Onc: No pertinent hx Hepatobiliary: Hep A/B/C (C) Rheumatologic: No pertinent hx Renal/: No pertinent hx Endocrine: No pertinent hx Dermatology: No pertinent hx Past Surgical History Past Surgical History: No pertinent history Family History Family History: Alzheimer's Disease Social History Quit ALCOHOL: occassional Drugs: None Current Problem List Problem List Problems Medical Problems: (1) Lactic acidosis Status: Acute (2) Liver failure Status: Acute (3) Pneumonia Status: Acute (4) Renal failure Status: Acute Current Medications Current Medications Current Medications Sodium Chloride 1,000 ml @ 1,000 mls/hr 1X ONCE IV Last administered on 10/10/18at 22:43; Start 10/10/18 at 22:00; Stop 10/10/18 at 22:59; Status DC Sodium Chloride 1,000 ml @ 1,000 mls/hr 1X ONCE IV Last administered on 10/10/18at 22:42; Start 10/10/18 at 22:00; Stop 10/10/18 at 22:59; Status DC Piperacillin Sod/ Tazobactam Sod (Zosyn Per Pharmacy) 1 each PRN DAILY PRN MC SEE COMMENTS; Start 10/10/18 at 22:00; Stop 10/10/18 at 22:33; Status DC Piperacillin Sod/ Tazobactam Sod 3.375 gm/Sodium Chloride 50 ml @ 100 mls/hr 1X ONCE IV Last administered on 10/10/18at 22:44; Start 10/10/18 at 22:15; Stop 10/10/18 at 22:44; Status DC Sodium Bicarbonate (Sodium Bicarb Adult 8.4% Syr) 50 meq 1X ONCE IV Last administered on 10/10/18at 22:43; Start 10/10/18 at 22:30; Stop 10/10/18 at 22:31; Status DC Calcium Gluconate (Calcium Gluconate) 1,000 mg 1X ONCE IVP Last administered on 10/10/18at 22:43; Start 10/10/18 at 22:30; Stop 10/10/18 at 22:31; Status DC Piperacillin Sod/ Tazobactam Sod (Zosyn Per Pharmacy) 1 each PRN DAILY PRN MC SEE COMMENTS; Start 10/10/18 at 22:45 Pantoprazole Sodium 80 mg/ Sodium Chloride 100 ml @ 10 mls/hr Q10H IV Last administered on 10/11/18at 10:39; Start 10/10/18 at 23:30 Phytonadione 10 mg/Dextrose 51 ml @ 102 mls/hr 1X ONCE IV Last administered on 10/10/18at 23:46; Start 10/10/18 at 23:30; Stop 10/10/18 at 23:59; Status DC Octreotide Acetate 500 mcg/ Sodium Chloride 101 ml @ 0 mls/hr CONT PRN IV SEE I/O RECORD Last administered on 10/10/18at 23:45; Start 10/10/18 at 23:45 Sodium Bicarbonate 50 meq/Dextrose 1,050 ml @ 125 mls/hr 1X ONCE IV Last administered on 10/11/18at 00:01; Start 10/10/18 at 23:55; Stop 10/11/18 at 08:18; Status DC Piperacillin Sod/ Tazobactam Sod 2.25 gm/Sodium Chloride 50 ml @ 100 mls/hr Q6HRS IV Last administered on 10/11/18at 05:30; Start 10/11/18 at 06:00; Stop 10/11/18 at 08:25; Status DC Meropenem 500 mg/ Sodium Chloride 50 ml @ 100 mls/hr Q8HRS IV ; Start 10/11/18 at 14:00; Stop 10/11/18 at 14:00; Status DC Ondansetron HCl (Zofran) 4 mg 1X ONCE IV Last administered on 10/11/18at 06:41; Start 10/11/18 at 06:45; Stop 10/11/18 at 06:46; Status DC Thiamine HCl 100 mg/Dextrose 51 ml @ 102 mls/hr 1X ONCE IV Last administered on 10/11/18at 07:40; Start 10/11/18 at 07:00; Stop 10/11/18 at 07:29; Status DC Folic Acid (Folic Acid) 1 mg DAILY PO ; Start 10/11/18 at 09:00 Levofloxacin/ Dextrose 50 ml @ 50 mls/hr 1X ONCE IV Last administered on 10/11/18at 07:42; Start 10/11/18 at 07:00; Stop 10/11/18 at 07:59; Status DC Albuterol Sulfate (Ventolin Neb Soln) 2.5 mg PRN Q4HRS PRN NEB SHORTNESS OF B REATH; Start 10/11/18 at 07:15 Lorazepam (Ativan) 1 mg 1X ONCE IV Last administered on 10/11/18at 07:37; Start 10/11/18 at 07:30; Stop 10/11/18 at 09:35; Status DC Lorazepam (Ativan) 1 mg PRN Q3HRS PRN IV ANXIETY / AGITATION; Start 10/11/18 at 08:00; Stop 10/11/18 at 09:35; Status DC Piperacillin Sod/ Tazobactam Sod 2.25 gm/Sodium Chloride 50 ml @ 100 mls/hr Q8HRS IV ; Start 10/11/18 at 14:00 Ondansetron HCl (Zofran) 4 mg PRN Q6HRS PRN IV NAUSEA/VOMITING; Start 10/11/18 at 08:45 Lactulose (Lactulose) 30 gm TID PO ; Start 10/11/18 at 09:30; Stop 10/11/18 at 11:25; Status DC Sodium Bicarbonate 50 meq/Dextrose 1,050 ml @ 125 mls/hr Q8H24M IV Last administered on 10/11/18at 09:21; Start 10/11/18 at 10:00 Dexmedetomidine HCl 200 mcg/ Sodium Chloride 50 ml @ 0 mls/hr CONT PRN IV PER PROTOCOL Last administered on 10/11/18at 12:10; Start 10/11/18 at 09:45 Sodium Chloride 500 ml @ 500 mls/hr 1X PRN PRN IV SEE COMMENTS; Start 10/11/18 at 09:45 Atropine Sulfate (ATROPINE 0.5mg SYRINGE) 0.5 mg PRN Q5MIN PRN IV SEE COMMENTS; Start 10/11/18 at 09:45 Sodium Bicarbonate (Sodium Bicarb Adult 8.4% Syr) 50 meq STK-MED ONCE .ROUTE ; Start 10/11/18 at 09:42; Stop 10/11/18 at 09:43; Status DC Sodium Bicarbonate (Sodium Bicarb Adult 8.4% Syr) 100 meq 1X ONCE IV Last administered on 10/11/18at 10:00; Start 10/11/18 at 10:00; Stop 10/11/18 at 10:01; Status DC Lactulose (Lactulose) 30 gm TID [place] ; Start 10/11/18 at 12:00 Lidocaine/Sodium Bicarbonate (Buffered Lidocaine 1%) 3 ml STK-MED ONCE .ROUTE ; Start 10/11/18 at 12:34; Stop 10/11/18 at 12:35; Status DC Heparin Sodium (Porcine) (Heparin Sodium) 10,000 unit STK-MED ONCE .ROUTE ; Start 10/11/18 at 12:34; Stop 10/11/18 at 12:35; Status DC Active Scripts Active Lactulose 20 Gm/30 Ml Solution 20 Gm PO PRN TID PRN 30 Days Klor-Con M20 (Potassium Chloride) 20 Meq Tab.er.prt 40 Meq PO DAILY 30 Days [Pantoprazole] 40 MG Tablet.dr 40 Mg PO DAILYAC 30 Days Hydroxyzine Pamoate 25 Mg Capsule 25 Mg PO PRN Q8HRS PRN 30 Days Aspirin Ec (Aspirin) 81 Mg Tablet.dr 81 Mg PO DAILYWBKFT 30 Days [Diltiazem Hcl] 240 MG Cap.er.24h 240 Mg PO DAILY 30 Days Metoprolol Tartrate 25 Mg Tablet 25 Mg PO BID 30 Days Vitamin B-1 (Thiamine Mononitrate) 100 Mg Tablet 100 Mg PO DAILY Hydrocodone-Apap 7.5-325 (Hydrocodone Bit/Acetaminophen) 1 Each Tablet 1 Tab PO PRN Q3HRS PRN Folic Acid 1 Mg Tablet 1 Mg PO DAILY Reported Tums (Calcium Carbonate) 300 Mg Tab.chew 300 Mg PO TIDAC PRN Cyclobenzaprine Hcl 10 Mg Tablet 1 Tab PO QHS Gabapentin (Gabapentin) 300 Mg Capsule 300 Mg PO TID Allergies Allergies: Coded Allergies: lisinopril (Verified Allergy, Severe, Swelling, 01/27/17) ANGIOEDEMA ROS General: YES: Fatigue Respiratory: YES: Shortness of breath, SOB with excertion Gastrointestinal: Yes Abdominal Pain Physical Exam General: mild distress HEENT: Atraumatic Lungs: Other (decreased breath sounds) Heart: Other (irregularly irregular with a rate of 90) Abdomen: Other (generalized tenderness) Vitals VITALS Vital Signs Date Time Temp Pulse Resp B/P (MAP) Pulse Ox O2 Delivery O2 Flow Rate FiO2 10/11/18 12:04 99.1 87 25 123/59 (80) 95 Nasal Cannula 2.0 99.1 Labs Labs Laboratory Tests Test 10/10/18 21:07 10/10/18 21:45 10/10/18 21:57 10/10/18 22:30 Urine Collection Type Unknown Urine Color Barbara Urine Clarity Clear Urine pH 5.5 Urine Specific [place] 1.020 Urine Protein 100 mg/dL (NEG-TRACE) Urine Glucose (UA) Negative mg/dL (NEG) Urine Ketones (Stick) Trace mg/dL (NEG) Urine Blood Small (NEG) Urine Nitrite Negative (NEG) Urine Bilirubin Small (NEG) Urine Urobilinogen Dipstick 1.0 mg/dL (0.2 mg/dL) Urine Leukocyte Esterase Negative (NEG) Urine RBC 3-5 /HPF (0-2) Urine WBC Occ /HPF (0-4) Urine Squamous Epithelial Cells Occ /LPF Urine Bacteria 0 /HPF (0-FEW) Urine Hyaline Casts Many /HPF Urine Mucus Marked /LPF Urine Opiates Screen Neg (NEG) Urine Methadone Screen Neg (NEG) Urine Barbiturates Neg (NEG) Urine Phencyclidine Screen Neg (NEG) Urine Amphetamine/Methamphetamine Neg (NEG) Urine Benzodiazepines Screen Neg (NEG) Urine Cocaine Screen Neg (NEG) Urine Cannabinoids Screen Neg (NEG) Urine Ethyl Alcohol Neg (NEG) Glucose (Fingerstick) 137 mg/dL (70-99) Stool Occult Blood Positive (NEG) O2 Saturation 98 % (92-99) Arterial Blood pH 7.18 (7.35-7.45) Arterial Blood pCO2 at Patient Temp < 15 mmHg (35-46) Arterial Blood pO2 at Patient Temp 134 mmHg (65-108) Arterial Blood HCO3 5 mmol/L (21-28) Arterial Blood Base Excess -21 mmol/L (-3-3) White Blood Count 14.7 x10^3/uL (4.0-11.0) Red Blood Count 3.26 x10^6/uL (4.30-5.70) Hemoglobin 6.5 g/dL (13.0-17.5) Hematocrit 23.4 % (39.0-53.0) Mean Corpuscular Volume 72 fL (79-100) Mean Corpuscular Hemoglobin 20 pg (25-35) Mean Corpuscular Hemoglobin Concent 28 g/dL (31-37) Red Cell Distribution Width 27.3 % (11.5-14.5) Platelet Count 141 x10^3/uL (140-400) Neutrophils (%) (Auto) 81 % (31-73) Lymphocytes (%) (Auto) 7 % (24-48) Monocytes (%) (Auto) 11 % (0-9) Eosinophils (%) (Auto) 1 % (0-3) Basophils (%) (Auto) 0 % (0-3) Neutrophils # (Auto) 11.9 x10^3uL (1.8-7.7) Lymphocytes # (Auto) 1.0 x10^3/uL (1.0-4.8) Monocytes # (Auto) 1.5 x10^3/uL (0.0-1.1) Eosinophils # (Auto) 0.1 x10^3/uL (0.0-0.7) Basophils # (Auto) 0.0 x10^3/uL (0.0-0.2) Segmented Neutrophils % 80 % (35-66) Band Neutrophils % 9 % (0-9) Lymphocytes % 7 % (24-48) Monocytes % 4 % (0-10) Nucleated Red Blood Cells 6 Platelet Estimate Adequate (ADEQUATE) Polychromasia Slight Hypochromasia Mod Anisocytosis Marked Microcytosis Mod Ovalocytes Few Nicol Cells Many Schistocytes Few Prothrombin Time 52.5 SEC (11.7-14.0) Prothromb Time International Ratio 5.8 (0.8-1.1) Sodium Level 136 mmol/L (136-145) Potassium Level 5.1 mmol/L (3.5-5.1) Chloride Level 101 mmol/L (98-107) Carbon Dioxide Level 10 mmol/L (21-32) Anion Gap 25 (6-14) Blood Urea Nitrogen 49 mg/dL (8-26) Creatinine 3.6 mg/dL (0.7-1.3) Estimated GFR (Cockcroft-Gault) 17.3 BUN/Creatinine Ratio 14 (6-20) Glucose Level 129 mg/dL (70-99) Lactic Acid Level 14.9 mmol/L (0.4-2.0) Calcium Level 7.7 mg/dL (8.5-10.1) Magnesium Level 2.1 mg/dL (1.8-2.4) Total Bilirubin 2.9 mg/dL (0.2-1.0) Aspartate Amino Transf (AST/SGOT) 4514 U/L (15-37) Alanine Aminotransferase (ALT/SGPT) 1550 U/L (16-63) Alkaline Phosphatase 104 U/L (46-116) Creatine Kinase 210 U/L (39-308) Troponin I Quantitative 0.073 ng/mL (0.000-0.055) RT-Byq-X-Type Natriuretic Peptide 3776 pg/mL (0-124) Total Protein 5.8 g/dL (6.4-8.2) Albumin 2.7 g/dL (3.4-5.0) Albumin/Globulin Ratio 0.9 (1.0-1.7) Lipase 408 U/L (73-393) Procalcitonin 0.88 ng/mL (0.00-0.10) Acetaminophen Level 2.7 mcg/ml (10-30) Acetaminophen Last Dose Date Unk Acetaminophen Last Dose Time Unk Ethyl Alcohol Level < 10 mg/dL (0-10) Test 10/10/18 22:56 10/10/18 23:41 10/11/18 00:45 10/11/18 02:00 Glucose (Fingerstick) 111 mg/dL (70-99) Ammonia 28 mcmol/L (11-34) O2 Saturation 97 % (92-99) Arterial Blood pH 7.19 (7.35-7.45) Arterial Blood pCO2 at Patient Temp 19 mmHg (35-46) Arterial Blood pO2 at Patient Temp 125 mmHg (65-108) Arterial Blood HCO3 7 mmol/L (21-28) Arterial Blood Base Excess -19 mmol/L (-3-3) FiO2 40% Lactic Acid Level 13.3 mmol/L (0.4-2.0) Test 10/11/18 05:40 10/11/18 08:00 10/11/18 08:10 10/11/18 11:25 White Blood Count 12.0 x10^3/uL (4.0-11.0) 9.7 x10^3/uL (4.0-11.0) Red Blood Count 4.01 x10^6/uL (4.30-5.70) 3.96 x10^6/uL (4.30-5.70) Hemoglobin 8.4 g/dL (13.0-17.5) 8.2 g/dL (13.0-17.5) Hematocrit 28.4 % (39.0-53.0) 26.8 % (39.0-53.0) Mean Corpuscular Volume 71 fL (79-100) 68 fL (79-100) Mean Corpuscular Hemoglobin 21 pg (25-35) 21 pg (25-35) Mean Corpuscular Hemoglobin Concent 30 g/dL (31-37) 31 g/dL (31-37) Red Cell Distribution Width 27.6 % (11.5-14.5) 27.2 % (11.5-14.5) Platelet Count 146 x10^3/uL (140-400) 123 x10^3/uL (140-400) Neutrophils (%) (Auto) 82 % (31-73) 87 % (31-73) Lymphocytes (%) (Auto) 8 % (24-48) 8 % (24-48) Monocytes (%) (Auto) 8 % (0-9) 5 % (0-9) Eosinophils (%) (Auto) 1 % (0-3) 0 % (0-3) Basophils (%) (Auto) 0 % (0-3) 0 % (0-3) Neutrophils # (Auto) 9.9 x10^3uL (1.8-7.7) 8.5 x10^3uL (1.8-7.7) Lymphocytes # (Auto) 1.0 x10^3/uL (1.0-4.8) 0.7 x10^3/uL (1.0-4.8) Monocytes # (Auto) 1.0 x10^3/uL (0.0-1.1) 0.5 x10^3/uL (0.0-1.1) Eosinophils # (Auto) 0.1 x10^3/uL (0.0-0.7) 0.0 x10^3/uL (0.0-0.7) Basophils # (Auto) 0.0 x10^3/uL (0.0-0.2) 0.0 x10^3/uL (0.0-0.2) Sodium Level 134 mmol/L (136-145) Potassium Level 5.6 mmol/L (3.5-5.1) Chloride Level 96 mmol/L (98-107) Carbon Dioxide Level 15 mmol/L (21-32) Anion Gap 23 (6-14) Blood Urea Nitrogen 60 mg/dL (8-26) Creatinine 4.1 mg/dL (0.7-1.3) Estimated GFR (Cockcroft-Gault) 14.9 BUN/Creatinine Ratio 15 (6-20) Glucose Level 114 mg/dL (70-99) Calcium Level 8.1 mg/dL (8.5-10.1) Total Bilirubin 3.6 mg/dL (0.2-1.0) Aspartate Amino Transf (AST/SGOT) 7583 U/L (15-37) Alanine Aminotransferase (ALT/SGPT) 2622 U/L (16-63) Alkaline Phosphatase 124 U/L (46-116) Total Protein 6.6 g/dL (6.4-8.2) Albumin 3.3 g/dL (3.4-5.0) Albumin/Globulin Ratio 1.0 (1.0-1.7) Salicylates Level < 2.8 mg/dL (2.8-20.0) Salicylate Last Dose Date 10/10/18 Salicylate Last Dose Time 1130 Prothrombin Time 48.2 SEC (11.7-14.0) Prothromb Time International Ratio 5.2 (0.8-1.1) Activated Partial Thromboplast Time 41 SEC (24-38) Lactic Acid Level 4.5 mmol/L (0.4-2.0) Laboratory Tests Test 5/3/19 21:07 10/10/18 21:45 10/10/18 21:57 10/10/18 22:30 Urine Collection Type Unknown Urine Color Barbara Urine Clarity Clear Urine pH 5.5 Urine Specific [place] 1.020 Urine Protein 100 mg/dL (NEG-TRACE) Urine Glucose (UA) Negative mg/dL (NEG) Urine Ketones (Stick) Trace mg/dL (NEG) Urine Blood Small (NEG) Urine Nitrite Negative (NEG) Urine Bilirubin Small (NEG) Urine Urobilinogen Dipstick 1.0 mg/dL (0.2 mg/dL) Urine Leukocyte Esterase Negative (NEG) Urine RBC 3-5 /HPF (0-2) Urine WBC Occ /HPF (0-4) Urine Squamous Epithelial Cells Occ /LPF Urine Bacteria 0 /HPF (0-FEW) Urine Hyaline Casts Many /HPF Urine Mucus Marked /LPF Urine Opiates Screen Neg (NEG) Urine Methadone Screen Neg (NEG) Urine Barbiturates Neg (NEG) Urine Phencyclidine Screen Neg (NEG) Urine Amphetamine/Methamphetamine Neg (NEG) Urine Benzodiazepines Screen Neg (NEG) Urine Cocaine Screen Neg (NEG) Urine Cannabinoids Screen Neg (NEG) Urine Ethyl Alcohol Neg (NEG) Glucose (Fingerstick) 137 mg/dL (70-99) Stool Occult Blood Positive (NEG) O2 Saturation 98 % (92-99) Arterial Blood pH 7.18 (7.35-7.45) Arterial Blood pCO2 at Patient Temp < 15 mmHg (35-46) Arterial Blood pO2 at Patient Temp 134 mmHg (65-108) Arterial Blood HCO3 5 mmol/L (21-28) Arterial Blood Base Excess -21 mmol/L (-3-3) White Blood Count 14.7 x10^3/uL (4.0-11.0) Red Blood Count 3.26 x10^6/uL (4.30-5.70) Hemoglobin 6.5 g/dL (13.0-17.5) Hematocrit 23.4 % (39.0-53.0) Mean Corpuscular Volume 72 fL (79-100) Mean Corpuscular Hemoglobin 20 pg (25-35) Mean Corpuscular Hemoglobin Concent 28 g/dL (31-37) Red Cell Distribution Width 27.3 % (11.5-14.5) Platelet Count 141 x10^3/uL (140-400) Neutrophils (%) (Auto) 81 % (31-73) Lymphocytes (%) (Auto) 7 % (24-48) Monocytes (%) (Auto) 11 % (0-9) Eosinophils (%) (Auto) 1 % (0-3) Basophils (%) (Auto) 0 % (0-3) Neutrophils # (Auto) 11.9 x10^3uL (1.8-7.7) Lymphocytes # (Auto) 1.0 x10^3/uL (1.0-4.8) Monocytes # (Auto) 1.5 x10^3/uL (0.0-1.1) Eosinophils # (Auto) 0.1 x10^3/uL (0.0-0.7) Basophils # (Auto) 0.0 x10^3/uL (0.0-0.2) Segmented Neutrophils % 80 % (35-66) Band Neutrophils % 9 % (0-9) Lymphocytes % 7 % (24-48) Monocytes % 4 % (0-10) Nucleated Red Blood Cells 6 Platelet Estimate Adequate (ADEQUATE) Polychromasia Slight Hypochromasia Mod Anisocytosis Marked Microcytosis Mod Ovalocytes Few Mcgregor Cells Many Schistocytes Few Prothrombin Time 52.5 SEC (11.7-14.0) Prothromb Time International Ratio 5.8 (0.8-1.1) Sodium Level 136 mmol/L (136-145) Potassium Level 5.1 mmol/L (3.5-5.1) Chloride Level 101 mmol/L (98-107) Carbon Dioxide Level 10 mmol/L (21-32) Anion Gap 25 (6-14) Blood Urea Nitrogen 49 mg/dL (8-26) Creatinine 3.6 mg/dL (0.7-1.3) Estimated GFR (Cockcroft-Gault) 17.3 BUN/Creatinine Ratio 14 (6-20) Glucose Level 129 mg/dL (70-99) Lactic Acid Level 14.9 mmol/L (0.4-2.0) Calcium Level 7.7 mg/dL (8.5-10.1) Magnesium Level 2.1 mg/dL (1.8-2.4) Total Bilirubin 2.9 mg/dL (0.2-1.0) Aspartate Amino Transf (AST/SGOT) 4514 U/L (15-37) Alanine Aminotransferase (ALT/SGPT) 1550 U/L (16-63) Alkaline Phosphatase 104 U/L (46-116) Creatine Kinase 210 U/L (39-308) Troponin I Quantitative 0.073 ng/mL (0.000-0.055) PP-[id number]-[id number]-Type Natriuretic Peptide 3776 pg/mL (0-124) Total Protein 5.8 g/dL (6.4-8.2) Albumin 2.7 g/dL (3.4-5.0) Albumin/Globulin Ratio 0.9 (1.0-1.7) Lipase 408 U/L (73-393) Procalcitonin 0.88 ng/mL (0.00-0.10) Acetaminophen Level 2.7 mcg/ml (10-30) Acetaminophen Last Dose Date Unk Acetaminophen Last Dose Time Unk Ethyl Alcohol Level < 10 mg/dL (0-10) Test 10/10/18 22:56 10/10/18 23:41 10/11/18 00:45 10/11/18 02:00 Glucose (Fingerstick) 111 mg/dL (70-99) Ammonia 28 mcmol/L (11-34) O2 Saturation 97 % (92-99) Arterial Blood pH 7.19 (7.35-7.45) Arterial Blood pCO2 at Patient Temp 19 mmHg (35-46) Arterial Blood pO2 at Patient Temp 125 mmHg (65-108) Arterial Blood HCO3 7 mmol/L (21-28) Arterial Blood Base Excess -19 mmol/L (-3-3) FiO2 40% Lactic Acid Level 13.3 mmol/L (0.4-2.0) Test 10/11/18 05:40 10/11/18 08:00 10/11/18 08:10 10/11/18 11:25 White Blood Count 12.0 x10^3/uL (4.0-11.0) 9.7 x10^3/uL (4.0-11.0) Red Blood Count 4.01 x10^6/uL (4.30-5.70) 3.96 x10^6/uL (4.30-5.70) Hemoglobin 8.4 g/dL (13.0-17.5) 8.2 g/dL (13.0-17.5) Hematocrit 28.4 % (39.0-53.0) 26.8 % (39.0-53.0) Mean Corpuscular Volume 71 fL (79-100) 68 fL (79-100) Mean Corpuscular Hemoglobin 21 pg (25-35) 21 pg (25-35) Mean Corpuscular Hemoglobin Concent 30 g/dL (31-37) 31 g/dL (31-37) Red Cell Distribution Width 27.6 % (11.5-14.5) 27.2 % (11.5-14.5) Platelet Count 146 x10^3/uL (140-400) 123 x10^3/uL (140-400) Neutrophils (%) (Auto) 82 % (31-73) 87 % (31-73) Lymphocytes (%) (Auto) 8 % (24-48) 8 % (24-48) Monocytes (%) (Auto) 8 % (0-9) 5 % (0-9) Eosinophils (%) (Auto) 1 % (0-3) 0 % (0-3) Basophils (%) (Auto) 0 % (0-3) 0 % (0-3) Neutrophils # (Auto) 9.9 x10^3uL (1.8-7.7) 8.5 x10^3uL (1.8-7.7) Lymphocytes # (Auto) 1.0 x10^3/uL (1.0-4.8) 0.7 x10^3/uL (1.0-4.8) Monocytes # (Auto) 1.0 x10^3/uL (0.0-1.1) 0.5 x10^3/uL (0.0-1.1) Eosinophils # (Auto) 0.1 x10^3/uL (0.0-0.7) 0.0 x10^3/uL (0.0-0.7) Basophils # (Auto) 0.0 x10^3/uL (0.0-0.2) 0.0 x10^3/uL (0.0-0.2) Sodium Level 134 mmol/L (136-145) Potassium Level 5.6 mmol/L (3.5-5.1) Chloride Level 96 mmol/L (98-107) Carbon Dioxide Level 15 mmol/L (21-32) Anion Gap 23 (6-14) Blood Urea Nitrogen 60 mg/dL (8-26) Creatinine 4.1 mg/dL (0.7-1.3) Estimated GFR (Cockcroft-Gault) 14.9 BUN/Creatinine Ratio 15 (6-20) Glucose Level 114 mg/dL (70-99) Calcium Level 8.1 mg/dL (8.5-10.1) Total Bilirubin 3.6 mg/dL (0.2-1.0) Aspartate Amino Transf (AST/SGOT) 7583 U/L (15-37) Alanine Aminotransferase (ALT/SGPT) 2622 U/L (16-63) Alkaline Phosphatase 124 U/L (46-116) Total Protein 6.6 g/dL (6.4-8.2) Albumin 3.3 g/dL (3.4-5.0) Albumin/Globulin Ratio 1.0 (1.0-1.7) Salicylates Level < 2.8 mg/dL (2.8-20.0) Salicylate Last Dose Date 10/10/18 Salicylate Last Dose Time 1130 Prothrombin Time 48.2 SEC (11.7-14.0) Prothromb Time International Ratio 5.2 (0.8-1.1) Activated Partial Thromboplast Time 41 SEC (24-38) Lactic Acid Level 4.5 mmol/L (0.4-2.0) Images Images Echo from 09/10/18 showed an ejection fraction of 50%, mild to moderate mitral regurgitation and a pulmonary artery pressure 40 mmHg. Assessment/Plan Assessment/Plan 1. Sepsis. Probable pneumonia. Elevated lactic acid. On antibiotics as per the ID service. Pressor support as needed. 2. Acute renal failure. Fluid has been administered the patient. Renal consult is pending. 3. Hepatitis. Liver failure. Discussion as above. 4. Acute blood loss. Possible GI bleed. Blood transfusions as needed. 5. Atrial fibrillation. Rate is under better control with treatment of underlying disease process. Echo showed intact LV systolic function approxim ately one month ago. We'll continue monitoring. Continue supportive care. Thank you for allowing us to participate in the care of your patient. LULU BOWLES MD October 11, 2018 13:09
--- NOTE | 2018-10-11 13:14 | PDOC ---
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
[2018-10-11] MEDS ORDERED: 0.9 % SODIUM CHLORIDE 10 ML DISP.SYRIN. IV PRN ×2 (13:15)
[2018-10-11] MEDS ORDERED: DIALYSIS PATIENT. MC PRN ×2 (13:15)
[2018-10-11] MEDS ORDERED: ALBUMIN HUMAN 25% 200 ML IV PRN (13:15)
--- NOTE | 2018-10-11 13:33 | RAD ---
Ultrasound-guided vascular access, non tunnelled hemodialysis catheter placement History: Renal failure. Procedure: Written informed consent was obtained. The targeted vein was reviewed sonographically and shown to be widely patent. Sterile ultrasound technique was used. Patent vein was documented in the patient's permanent record in PACS. The area was draped and prepped in normal sterile fashion. Local anesthesia with 1% Lidocaine was made. Under real-time ultrasound guidance a 21-gauge needle was advanced into the targeted vein. Needle placement was confirmed by return of venous blood flow. A 0.018 wire was placed through the needle and the needle was exchanged over the wire after dermatotomy for a 4 Egyptian transitional sheath. This was used to introduce a stiff guidewire. The transitional sheath was then exchanged over the wire for fascial dilators to enlarge the venotomy site. A temporary hemolysis catheter was then placed over the wire. Clinical function of the catheter was tested with good results. The catheter was secured in place. The patient tolerated tolerated the procedure with local anesthesia. A chest radiograph was performed in followup. Impression: Placement of temporary hemodialysis catheter via right internal jugular vein approach.
[2018-10-11] MEDS ORDERED: LIDOCAINE WITH 8.4% SOD BICARB 3 ML DISP.SYRIN. INJ ONE (13:45)
--- NOTE | 2018-10-11 13:55 | RAD ---
Chest one view History: Line placement Comparison: 1 day prior Findings: The heart appears mildly enlarged. There is a new right IJ hemodialysis catheter in place its tip is in the right atrium just below the cavoatrial junction. No pneumothorax. Bilateral pulmonary venous congestion again noted. No effusions. Impression: Right IJ hemodialysis catheter tip in the right atrium ready to use. No pneumothorax Unchanged pulmonary venous congestion and mild cardiomegaly
[2018-10-11] MEDS ORDERED: MEROPENEM 500 MG in IV NORMAL SALINE 50ML 50 ML IV SCH (14:00)
[2018-10-11] MEDS: LACTULOSE 20 GM/30 ML SOLUTION. PR SCH ×2 (14:04→20:55)
[2018-10-11] MEDS: PIPERACILLIN/TAZOBACTAM 2.25 GM in IV NORMAL SALINE 50ML 50 ML IV SCH ×2 (14:10→21:39)
[2018-10-11 19:42] LABS: BASO % 0 % (0-3); EOS % 1 % (0-3); HEMATOCRIT 25.9 % (39.0-53.0); HEMOGLOBIN 8.2 g/dL (13.0-17.5); LYMPH # 0.7 x10^3/uL (1.0-4.8); LYMPH % 11 % (24-48); MEAN CORPUSCULAR HEMOGLOBIN 21 pg (25-35); MEAN CORPUSCULAR HGB CONC 32 g/dL (31-37); MEAN CORPUSCULAR VOLUME 66 fL (79-100); MONO # 0.2 x10^3/uL (0.0-1.1); MONO % 3 % (0-9); NEUT # 5.6 x10^3uL (1.8-7.7); NEUT % 85 % (31-73); PLATELET COUNT 98 x10^3/uL (140-400); RED BLOOD COUNT 3.89 x10^6/uL (4.30-5.70); RED CELL DISTRIBUTION WIDTH 28.1 % (11.5-14.5); WHITE BLOOD COUNT 6.6 x10^3/uL (4.0-11.0)
[2018-10-12] VITALS (24 sets, daily range): BP systolic 99–140; BP diastolic 61–106
[2018-10-12 00:39] LABS: BASO % 0 % (0-3); EOS % 0 % (0-3); HEMOGLOBIN 8.3 g/dL (13.0-17.5); LYMPH # 0.8 x10^3/uL (1.0-4.8); LYMPH % 10 % (24-48); MEAN CORPUSCULAR HEMOGLOBIN 21 pg (25-35); MEAN CORPUSCULAR HGB CONC 31 g/dL (31-37); MEAN CORPUSCULAR VOLUME 67 fL (79-100); MONO # 0.3 x10^3/uL (0.0-1.1); MONO % 4 % (0-9); NEUT # 6.8 x10^3uL (1.8-7.7); NEUT % 86 % (31-73); PLATELET COUNT 96 x10^3/uL (140-400); RED BLOOD COUNT 4.03 x10^6/uL (4.30-5.70); RED CELL DISTRIBUTION WIDTH 27.7 % (11.5-14.5); WHITE BLOOD COUNT 7.9 x10^3/uL (4.0-11.0)
[2018-10-12] MEDS: DEXMEDETOMIDINE 200 MCG in IV NORMAL SALINE 50ML 48 ML IV PRN ×6 (01:21→20:22)
[2018-10-12] MEDS: SODIUM BICARBONATE VIAL 50 MEQ in IV DEXTROSE 5% 1,000 ML IV SCH (02:21)
[2018-10-12 05:26] LABS: BASO % 0 % (0-3); EOS % 0 % (0-3); HEMATOCRIT 25.8 % (39.0-53.0); HEMOGLOBIN 8.2 g/dL (13.0-17.5); LYMPH # 0.8 x10^3/uL (1.0-4.8); LYMPH % 10 % (24-48); MEAN CORPUSCULAR HEMOGLOBIN 21 pg (25-35); MEAN CORPUSCULAR HGB CONC 32 g/dL (31-37); MEAN CORPUSCULAR VOLUME 67 fL (79-100); MONO # 0.3 x10^3/uL (0.0-1.1); MONO % 4 % (0-9); NEUT # 6.9 x10^3uL (1.8-7.7); NEUT % 86 % (31-73); PLATELET COUNT 90 x10^3/uL (140-400); RED BLOOD COUNT 3.87 x10^6/uL (4.30-5.70); RED CELL DISTRIBUTION WIDTH 27.3 % (11.5-14.5)
[2018-10-12 05:40] LABS: PROTHROMBIN TIME PATIENT 40.4 SEC (11.7-14.0)
[2018-10-12] MEDS: PIPERACILLIN/TAZOBACTAM 2.25 GM in IV NORMAL SALINE 50ML 50 ML IV SCH ×2 (06:08→15:46)
[2018-10-12 06:14] LABS: ALBUMIN 2.4 g/dL (3.4-5.0); ALBUMIN/GLOBULIN RATIO 0.9 (1.0-1.7); CALCIUM 7.7 mg/dL (8.5-10.1); POTASSIUM 3.1 mmol/L (3.5-5.1); TOTAL BILIRUBIN 3.2 mg/dL (0.2-1.0); TOTAL PROTEIN 5.2 g/dL (6.4-8.2)
--- NOTE | 2018-10-12 08:09 | PDOC ---
Infectious Disease Note Subjective Subjective Sedated Bicarb gtt O2 Normothermic, BP stable ROS ROS unobtainable Vital Sign Vital Signs Vital Signs Date Time Temp Pulse Resp B/P (MAP) Pulse Ox O2 Delivery O2 Flow Rate FiO2 10/12/18 07:00 83 10 106/61 (76) 93 Nasal Cannula 2.0 10/12/18 04:00 97.7 97.7 Physical Exam PHYSICAL EXAM GENERAL: Lying down, unresponsive to verbal stimuli HENT: PERRL. Oral cavity dry LUNGS: Clear CV: S1 S2 irregular ABD: Soft, no grimace to palpation : Rodriguez EXT: No gross edema or cyanosis SKIN: No generalized rash BANQUET ATTENDANT: Sedated Nontunneled RIJ/HDC (10/11) clean Labs Lab Laboratory Tests Test 10/11/18 08:00 10/11/18 08:10 10/11/18 11:25 10/11/18 19:30 Prothrombin Time 48.2 SEC (11.7-14.0) Prothromb Time International Ratio 5.2 (0.8-1.1) Activated Partial Thromboplast Time 41 SEC (24-38) White Blood Count 9.7 x10^3/uL (4.0-11.0) 6.6 x10^3/uL (4.0-11.0) Red Blood Count 3.96 x10^6/uL (4.30-5.70) 3.89 x10^6/uL (4.30-5.70) Hemoglobin 8.2 g/dL (13.0-17.5) 8.2 g/dL (13.0-17.5) Hematocrit 26.8 % (39.0-53.0) 25.9 % (39.0-53.0) Mean Corpuscular Volume 68 fL (79-100) 66 fL (79-100) Mean Corpuscular Hemoglobin 21 pg (25-35) 21 pg (25-35) Mean Corpuscular Hemoglobin Concent 31 g/dL (31-37) 32 g/dL (31-37) Red Cell Distribution Width 27.2 % (11.5-14.5) 28.1 % (11.5-14.5) Platelet Count 123 x10^3/uL (140-400) 98 x10^3/uL (140-400) Neutrophils (%) (Auto) 87 % (31-73) 85 % (31-73) Lymphocytes (%) (Auto) 8 % (24-48) 11 % (24-48) Monocytes (%) (Auto) 5 % (0-9) 3 % (0-9) Eosinophils (%) (Auto) 0 % (0-3) 1 % (0-3) Basophils (%) (Auto) 0 % (0-3) 0 % (0-3) Neutrophils # (Auto) 8.5 x10^3uL (1.8-7.7) 5.6 x10^3uL (1.8-7.7) Lymphocytes # (Auto) 0.7 x10^3/uL (1.0-4.8) 0.7 x10^3/uL (1.0-4.8) Monocytes # (Auto) 0.5 x10^3/uL (0.0-1.1) 0.2 x10^3/uL (0.0-1.1) Eosinophils # (Auto) 0.0 x10^3/uL (0.0-0.7) 0.0 x10^3/uL (0.0-0.7) Basophils # (Auto) 0.0 x10^3/uL (0.0-0.2) 0.0 x10^3/uL (0.0-0.2) Lactic Acid Level 4.5 mmol/L (0.4-2.0) Test 10/12/18 00:05 10/12/18 05:00 White Blood Count 7.9 x10^3/uL (4.0-11.0) 8.0 x10^3/uL (4.0-11.0) Red Blood Count 4.03 x10^6/uL (4.30-5.70) 3.87 x10^6/uL (4.30-5.70) Hemoglobin 8.3 g/dL (13.0-17.5) 8.2 g/dL (13.0-17.5) Hematocrit 27.0 % (39.0-53.0) 25.8 % (39.0-53.0) Mean Corpuscular Volume 67 fL (79-100) 67 fL (79-100) Mean Corpuscular Hemoglobin 21 pg (25-35) 21 pg (25-35) Mean Corpuscular Hemoglobin Concent 31 g/dL (31-37) 32 g/dL (31-37) Red Cell Distribution Width 27.7 % (11.5-14.5) 27.3 % (11.5-14.5) Platelet Count 96 x10^3/uL (140-400) 90 x10^3/uL (140-400) Neutrophils (%) (Auto) 86 % (31-73) 86 % (31-73) Lymphocytes (%) (Auto) 10 % (24-48) 10 % (24-48) Monocytes (%) (Auto) 4 % (0-9) 4 % (0-9) Eosinophils (%) (Auto) 0 % (0-3) 0 % (0-3) Basophils (%) (Auto) 0 % (0-3) 0 % (0-3) Neutrophils # (Auto) 6.8 x10^3uL (1.8-7.7) 6.9 x10^3uL (1.8-7.7) Lymphocytes # (Auto) 0.8 x10^3/uL (1.0-4.8) 0.8 x10^3/uL (1.0-4.8) Monocytes # (Auto) 0.3 x10^3/uL (0.0-1.1) 0.3 x10^3/uL (0.0-1.1) Eosinophils # (Auto) 0.0 x10^3/uL (0.0-0.7) 0.0 x10^3/uL (0.0-0.7) Basophils # (Auto) 0.0 x10^3/uL (0.0-0.2) 0.0 x10^3/uL (0.0-0.2) Prothrombin Time 40.4 SEC (11.7-14.0) Prothromb Time International Ratio 4.2 (0.8-1.1) Sodium Level 137 mmol/L (136-145) Potassium Level 3.1 mmol/L (3.5-5.1) Chloride Level 98 mmol/L (98-107) Carbon Dioxide Level 32 mmol/L (21-32) Anion Gap 7 (6-14) Blood Urea Nitrogen 35 mg/dL (8-26) Creatinine 2.0 mg/dL (0.7-1.3) Estimated GFR (Cockcroft-Gault) 34.0 BUN/Creatinine Ratio 18 (6-20) Glucose Level 177 mg/dL (70-99) Calcium Level 7.7 mg/dL (8.5-10.1) Total Bilirubin 3.2 mg/dL (0.2-1.0) Aspartate Amino Transf (AST/SGOT) 3722 U/L (15-37) Alanine Aminotransferase (ALT/SGPT) 2141 U/L (16-63) Alkaline Phosphatase 106 U/L (46-116) Total Protein 5.2 g/dL (6.4-8.2) Albumin 2.4 g/dL (3.4-5.0) Albumin/Globulin Ratio 0.9 (1.0-1.7) US 1. Limited exam due to patient mental status. 2. Cholelithiasis. There is superimposed gallbladder wall thickening which may be due to cholecystitis or intrinsic liver disease. The common bile duct is obscured. 3. 6.0 cm right renal cyst and prominent right renal pelvis likely due to a parapelvic cyst rather than hydronephrosis. There is an additional hypodense lesion within the right kidney on the prior CT which demonstrates no clear sonographic correlate. This remains indeterminant. 4. Distended stomach containing echogenic bolus. 5. Right pleural effusion. Micro 5/3. BLOOD CULTURE Preliminary NO GROWTH AFTER 1 DAY Objective Assessment Sepsis with lactic acidosis Hypothermia, now improved and off Jo-Ann hugger Leukocytosis, better Acute encephalopathy likely metabolic with hepatic failure NATHANIEL on CKD, now on dialysis Acute liver failure ,ammonia wnl Respiratory insufficiency, O2 5L ? colitis on CT A- fib Hep C, VL 24,700 Anemia s/p fall Recent hospitalization Myoclonic movements from hepatic failure Plan Plan of Care continue Zosyn, adjusted for renal function One time dose Levaquin, 5/4 Avoid nephrotoxic agents f/u cultures Monitor labs If dev diarrhea send for c diff and stool c/s. DNR Critically ill Prognosis poor Patient seen, examined, I agree with above Assessment and plan formulated by [facility]. JAKOB SCOTT APRN October 12, 2018 08:09 FIDELIA CASTILLO MD October 12, 2018 14:03
[2018-10-12] MEDS: PANTOPRAZOLE SODIUM IV DRIP 80 MG in IV NORMAL SALINE 100ML 100 ML IV SCH (08:31)
[2018-10-12] MEDS: OCTREOTIDE 500 MCG in IV NORMAL SALINE 100ML 100 ML IV PRN (08:32)
[2018-10-12] MEDS ORDERED: POTASSIUM CHL 20MEQ PREMIX 50 ML IV ONE (09:00)
--- NOTE | 2018-10-12 09:22 | CONS ---
DATE OF CONSULTATION: 10/11/2018 DICTATED BY: This is Rachid Parmar, nurse practitioner, dictating for Dr. Rayray Castillo, Infectious Disease. REFERRING PHYSICIAN: Dr. Cash. REASON FOR CONSULTATION: Septic shock. HISTORY OF PRESENT ILLNESS: This patient is a 63-year-old male with a history of alcoholism, hepatitis C, and atrial fibrillation who was brought to the ER after he was found down by his neighbors. He had elevated white blood cell count of 14,700. Lactic acid 14.9 and the hemoglobin to 6.5. His LFTs were markedly abnormal. He was in acute renal failure and severely acidotic. He was hypothermic, requiring a Jo-Ann Hugger. Blood cultures were ordered. Chest x-ray showed diffuse bilateral interstitial opacities. No focal consolidation, pneumothorax or effusion. Abdominal/pelvis CT without IV contrast revealed a circumferential wall thickening of the cecum and rectum suggesting focal colitis. Underlying mass not ruled out; consolidation in the right lower lobe; bilateral renal lesions, most likely simple cyst; cholelithiasis. He has been admitted to the intensive care unit on bicarbonate drip. He got one-time dose of levofloxacin and is currently on meropenem and Zosyn. ID has been asked to consult for further evaluation and antibiotic management. The patient is lethargic, unable to provide additional history of present illness, past medical history or review of systems. He was recently hospitalized for atrial fibrillation with rapid ventricular response and was newly diagnosed with hepatitis C. His viral load on 09/11/2018 was 24,700. He is normotensive and off the Jo-Ann Hugger. His blood pressure remains stable. PAST MEDICAL HISTORY: Alcoholism, hepatitis C, atrial fibrillation, hypertension, chronic back pain, GERD, iron deficiency anemia and chronic kidney disease. PAST SURGICAL HISTORY: Tonsillectomy, adenoidectomy, left femur fracture surgery. SOCIAL HISTORY: The patient lives at home. He has a 44-year smoking history. History of alcoholism. FAMILY HISTORY: Positive for lung cancer and hypertension. ALLERGIES: LISINOPRIL. MEDICATIONS: Meropenem, Zosyn, one-time dose of levofloxacin. Other medications are available and have been reviewed on the AUG. REVIEW OF SYSTEMS: Unobtainable as the patient is encephalopathic. PHYSICAL EXAMINATION: VITAL SIGNS: Temperature is 97.5, blood pressure 108/78, heart rate 67, respiratory rate 30, pulse oximetry is 100% on 5 liters oxygen. GENERAL: The patient is slightly propped up in bed, ill appearing. HEENT: Pupils equally round. Normal conjunctivae. Oral cavity dry. NECK: Supple. LUNGS: Diminished aeration. HEART: S1, S2, irregular. ABDOMEN: Soft. No grimace or guarding to palpation, bowel sounds present. EXTREMITIES: No gross edema or cyanosis. SKIN: Warm without generalized rash. NEUROLOGIC: Arouses on to verbal stimuli. He is confused. LINES: Left femoral IV catheter oozing. LABORATORY DATA: Today's WBC 12.0 from 14.7 on admission, hemoglobin 8.4, platelets 146,000, creatinine 4.1, BUN 60, bicarbonate 15 from 10. Sodium 134, potassium 5.6. Lactic acid 4.5 from 14.9, total bilirubin 3.6, AST 7583, ALT 2622, ammonia 28, albumin 3.3. Troponin 0.073. Procalcitonin 0.88, lipase 408. Hemoccult stool positive. Urinalysis is unremarkable for infection. Blood cultures are pending. IMAGING: Per HPI. In addition, the abdominal/pelvis CT did show fractures of the right transverse processes at the L2-L4 vertebral bodies, age indeterminate. Ultrasound is pending. IMPRESSION: 1. Sepsis with lactic acidosis. 2. Hypothermia. 3. Leukocytosis. 4. Acute encephalopathy, likely metabolic with hepatic failure. 5. Acute kidney injury on chronic kidney disease. 6. Acute hepatic failure with a normal ammonia level. 7. Respiratory insufficiency. 8. Questionable colitis on CT scan. 9. Atrial fibrillation. 10. Hepatitis C. Last viral load 24,700. 11. Anemia. 12. Status post fall. PLAN: Continue the Zosyn adjusted for renal function. He received a one-time dose of levofloxacin earlier. We will discontinue the meropenem. Avoid nephrotoxic agents. Abdominal ultrasound is pending. We will follow up on culture results. Continue to monitor laboratory values and response. Maintain aspiration precautions. Supportive care. The patient is critically ill with a poor prognosis. Thank you, Dr. Cash, for asking us to participate in this patient's care. Should you have further questions or concerns, please call. The patient is seen, examined and plan of care implemented by Dr. Rayray Castillo. RAYRAY CASTILLO MD DR: Carter JOB#: [id number] / [id number]
--- NOTE | 2018-10-12 09:26 | PDOC ---
PROGRESS NOTES Chief Complaint Chief Complaint A/P: Acute encephalopathy - was confused, possibly is hepatic, will cont lactulose to 3-5 BM per day, can back off. Precedex for agitation, will stop ativan Metabolic acidosis - large anion gap - looks to be mostly lactic acidosis, mesenteric ischemia is a strong possibility as primary etiology based on his CT results, though contrast dye is relatively contraindicated based on his Cr level, he is being aggressively treated for sepsis. ETOH use denied and negative on labs, negative acetaminophen, underwent dialysis 10/11/18 NATHANIEL - unfortunately this may be secondary to liver failure. There is definitely a vasomotor component as well. Based on his severe acidosis he improved with dialysis. Will consult nephrology. Severe sepsis - on levaquin, zosyn, merrem Acute hepatitis -Maddreys score > 32, but corticosteroids relatively contraindicated 2/2 active Hep C infection. Looking like this is acute liver failure considering his MELD jumped from 20 on discharge on 10/06/18 to 40 on 10/11/18. ETOH and Hep C. GI to assist. Cont octreotide and protonix Acute blood loss anemia - likely 2/2 varices, could be 2/2 mesenteric ischemia. s/p 1 u PRBC, cont octreotide and protonix. Microcytic by history, was advised to take iron on last visit AFIB - on Cardizem. Previously seen by cardiology Generalized pruritus with no evidence of skin lesions - likely from Hep C History of essential Hypertension - monitor Tobacco abuse greater than 50 pack year history of smoking, counseling done Hep C - viral titer [id number] last check, will consult GI FEN - NPO PPX - Protonix. SCDs FULL CODE Dispo - ICU for severe sepsis, encephalopathy, multi-organ system failure, in for at least 2 midnights. Overall grim prognosis with his liver disease and lactic acidosis plan icu bed nephrology consult GI consult ID consult pulm consult panculture add iv merem pending ID consult iv thiamine, folic acid Protonix drip FFP GIVEN IN ER npo until GI SEES levaquin 250 mg iv cardiology consult overall poor prognosis 105 min cc time, DR Henao to see as well today History of Present Illness History of Present Illness Mr Whitney is a 63yo M w/ PMHx HTN, Afib, Hep C who is brought in by EMS after carloz solorio found down by a neighbor patient was altered, hypotensive. Discharged for A. fib with RVR 10/06/18 and actually amazingly his labs actually look pretty good at that time He says he last drank about 3 days ago however then later he told me that he last drank several months ago. Required 1 u PRBC 09/11/18. MELD score 20 at time of discharge on 10/06/2018. AST 4514, ALT 1550, Lactate 14.9. WBC 14.7, Hb 6.5 with bright red blood per rectum - S/p 1u PRBC in ED. Bilirubin 2.9, INR 5.8. ABG 7.18/15/134, Cr 3.6, BUN 49. CT showed cecal wall thickening, non-contrast. He was hypotensive 92/66 and breathing 48 times per minute with temperature 93.6F rectal, an urgent left groin central line was placed for blood transfusion and fluids and octreotide, protonix, vitamin K administration. Started on empiric zosyn, merrem, levaquin, vancomycin. He was urgently brought to ICU for further stabilization for likely acute liver failure, acute blood loss, severe sepsis, metabolic acidosis, acute encephalopathy. 10/11: S/P 1u PRBC. RIJ trialysis catheter placed by IR. Dialysis session x1 Overnight required precedex for agitation. Multiple BM overnight after lactulose enemas. Hemodynamically stable this morning. UOP 150cc/hr. K 3.1 this morning. INR 4.2, Bili 3.2. AST, ALT coming down a bit Vitals Vitals Vital Signs Date Time Temp Pulse Resp B/P (MAP) Pulse Ox O2 Delivery O2 Flow Rate FiO2 10/12/18 08:00 Nasal Cannula 2.0 10/12/18 08:00 97.5 83 10 119/79 (92) 94 97.5 Physical Exam Physical Exam GENERAL: Lying down, unresponsive to verbal stimuli HENT: PERRL. Oral cavity dry LUNGS: Clear CV: S1 S2 irregular ABD: Soft, no grimace to palpation : Rodriguez EXT: No gross edema or cyanosis SKIN: No generalized rash [employer]: Sedated Nontunneled RIJ/HDC (10/11) clean Left groin CVC General: mild distress Heart: Other (irregularly irregular with a rate of 90) Lungs: Clear, Crackles Abdomen: Other (generalized tenderness) Extremities: No clubbing Skin: No breakdown, No significant lesion Labs LABS Laboratory Tests Test 10/11/18 11:25 10/11/18 19:30 10/12/18 00:05 10/12/18 05:00 White Blood Count 9.7 x10^3/uL (4.0-11.0) 6.6 x10^3/uL (4.0-11.0) 7.9 x10^3/uL (4.0-11.0) 8.0 x10^3/uL (4.0-11.0) Red Blood Count 3.96 x10^6/uL (4.30-5.70) 3.89 x10^6/uL (4.30-5.70) 4.03 x10^6/uL (4.30-5.70) 3.87 x10^6/uL (4.30-5.70) Hemoglobin 8.2 g/dL (13.0-17.5) 8.2 g/dL (13.0-17.5) 8.3 g/dL (13.0-17.5) 8.2 g/dL (13.0-17.5) Hematocrit 26.8 % (39.0-53.0) 25.9 % (39.0-53.0) 27.0 % (39.0-53.0) 25.8 % (39.0-53.0) Mean Corpuscular Volume 68 fL (79-100) 66 fL (79-100) 67 fL (79-100) 67 fL (79-100) Mean Corpuscular Hemoglobin 21 pg (25-35) 21 pg (25-35) 21 pg (25-35) 21 pg (25-35) Mean Corpuscular Hemoglobin Concent 31 g/dL (31-37) 32 g/dL (31-37) 31 g/dL (31-37) 32 g/dL (31-37) Red Cell Distribution Width 27.2 % (11.5-14.5) 28.1 % (11.5-14.5) 27.7 % (11.5-14.5) 27.3 % (11.5-14.5) Platelet Count 123 x10^3/uL (140-400) 98 x10^3/uL (140-400) 96 x10^3/uL (140-400) 90 x10^3/uL (140-400) Neutrophils (%) (Auto) 87 % (31-73) 85 % (31-73) 86 % (31-73) 86 % (31-73) Lymphocytes (%) (Auto) 8 % (24-48) 11 % (24-48) 10 % (24-48) 10 % (24-48) Monocytes (%) (Auto) 5 % (0-9) 3 % (0-9) 4 % (0-9) 4 % (0-9) Eosinophils (%) (Auto) 0 % (0-3) 1 % (0-3) 0 % (0-3) 0 % (0-3) Basophils (%) (Auto) 0 % (0-3) 0 % (0-3) 0 % (0-3) 0 % (0-3) Neutrophils # (Auto) 8.5 x10^3uL (1.8-7.7) 5.6 x10^3uL (1.8-7.7) 6.8 x10^3uL (1.8-7.7) 6.9 x10^3uL (1.8-7.7) Lymphocytes # (Auto) 0.7 x10^3/uL (1.0-4.8) 0.7 x10^3/uL (1.0-4.8) 0.8 x10^3/uL (1.0-4.8) 0.8 x10^3/uL (1.0-4.8) Monocytes # (Auto) 0.5 x10^3/uL (0.0-1.1) 0.2 x10^3/uL (0.0-1.1) 0.3 x10^3/uL (0.0-1.1) 0.3 x10^3/uL (0.0-1.1) Eosinophils # (Auto) 0.0 x10^3/uL (0.0-0.7) 0.0 x10^3/uL (0.0-0.7) 0.0 x10^3/uL (0.0-0.7) 0.0 x10^3/uL (0.0-0.7) Basophils # (Auto) 0.0 x10^3/uL (0.0-0.2) 0.0 x10^3/uL (0.0-0.2) 0.0 x10^3/uL (0.0-0.2) 0.0 x10^3/uL (0.0-0.2) Lactic Acid Level 4.5 mmol/L (0.4-2.0) Prothrombin Time 40.4 SEC (11.7-14.0) Prothromb Time International Ratio 4.2 (0.8-1.1) Sodium Level 137 mmol/L (136-145) Potassium Level 3.1 mmol/L (3.5-5.1) Chloride Level 98 mmol/L (98-107) Carbon Dioxide Level 32 mmol/L (21-32) Anion Gap 7 (6-14) Blood Urea Nitrogen 35 mg/dL (8-26) Creatinine 2.0 mg/dL (0.7-1.3) Estimated GFR (Cockcroft-Gault) 34.0 BUN/Creatinine Ratio 18 (6-20) Glucose Level 177 mg/dL (70-99) Calcium Level 7.7 mg/dL (8.5-10.1) Total Bilirubin 3.2 mg/dL (0.2-1.0) Aspartate Amino Transf (AST/SGOT) 3722 U/L (15-37) Alanine Aminotransferase (ALT/SGPT) 2141 U/L (16-63) Alkaline Phosphatase 106 U/L (46-116) Total Protein 5.2 g/dL (6.4-8.2) Albumin 2.4 g/dL (3.4-5.0) Albumin/Globulin Ratio 0.9 (1.0-1.7) Assessment and Plan Assessmemt and Plan Problems Medical Problems: (1) Lactic acidosis Status: Acute (2) Liver failure Status: Acute (3) Pneumonia Status: Acute (4) Renal failure Status: Acute Comment Review of Relevant I have reviewed the following items daysi (where applicable) has been applied. Labs Laboratory Tests Test 10/10/18 21:07 10/10/18 21:45 10/10/18 21:57 10/10/18 22:30 Urine Collection Type Unknown Urine Color Barbara Urine Clarity Clear Urine pH 5.5 Urine Specific [place] 1.020 Urine Protein 100 mg/dL (NEG-TRACE) Urine Glucose (UA) Negative mg/dL (NEG) Urine Ketones (Stick) Trace mg/dL (NEG) Urine Blood Small (NEG) Urine Nitrite Negative (NEG) Urine Bilirubin Small (NEG) Urine Urobilinogen Dipstick 1.0 mg/dL (0.2 mg/dL) Urine Leukocyte Esterase Negative (NEG) Urine RBC 3-5 /HPF (0-2) Urine WBC Occ /HPF (0-4) Urine Squamous Epithelial Cells Occ /LPF Urine Bacteria 0 /HPF (0-FEW) Urine Hyaline Casts Many /HPF Urine Mucus Marked /LPF Urine Opiates Screen Neg (NEG) Urine Methadone Screen Neg (NEG) Urine Barbiturates Neg (NEG) Urine Phencyclidine Screen Neg (NEG) Urine Amphetamine/Methamphetamine Neg (NEG) Urine Benzodiazepines Screen Neg (NEG) Urine Cocaine Screen Neg (NEG) Urine Cannabinoids Screen Neg (NEG) Urine Ethyl Alcohol Neg (NEG) Glucose (Fingerstick) 137 mg/dL (70-99) Stool Occult Blood Positive (NEG) O2 Saturation 98 % (92-99) Arterial Blood pH 7.18 (7.35-7.45) Arterial Blood pCO2 at Patient Temp < 15 mmHg (35-46) Arterial Blood pO2 at Patient Temp 134 mmHg (65-108) Arterial Blood HCO3 5 mmol/L (21-28) Arterial Blood Base Excess -21 mmol/L (-3-3) White Blood Count 14.7 x10^3/uL (4.0-11.0) Red Blood Count 3.26 x10^6/uL (4.30-5.70) Hemoglobin 6.5 g/dL (13.0-17.5) Hematocrit 23.4 % (39.0-53.0) Mean Corpuscular Volume 72 fL (79-100) Mean Corpuscular Hemoglobin 20 pg (25-35) Mean Corpuscular Hemoglobin Concent 28 g/dL (31-37) Red Cell Distribution Width 27.3 % (11.5-14.5) Platelet Count 141 x10^3/uL (140-400) Neutrophils (%) (Auto) 81 % (31-73) Lymphocytes (%) (Auto) 7 % (24-48) Monocytes (%) (Auto) 11 % (0-9) Eosinophils (%) (Auto) 1 % (0-3) Basophils (%) (Auto) 0 % (0-3) Neutrophils # (Auto) 11.9 x10^3uL (1.8-7.7) Lymphocytes # (Auto) 1.0 x10^3/uL (1.0-4.8) Monocytes # (Auto) 1.5 x10^3/uL (0.0-1.1) Eosinophils # (Auto) 0.1 x10^3/uL (0.0-0.7) Basophils # (Auto) 0.0 x10^3/uL (0.0-0.2) Segmented Neutrophils % 80 % (35-66) Band Neutrophils % 9 % (0-9) Lymphocytes % 7 % (24-48) Monocytes % 4 % (0-10) Nucleated Red Blood Cells 6 Platelet Estimate Adequate (ADEQUATE) Polychromasia Slight Hypochromasia Mod Anisocytosis Marked Microcytosis Mod Ovalocytes Few Nicol Cells Many Schistocytes Few Prothrombin Time 52.5 SEC (11.7-14.0) Prothromb Time International Ratio 5.8 (0.8-1.1) Sodium Level 136 mmol/L (136-145) Potassium Level 5.1 mmol/L (3.5-5.1) Chloride Level 101 mmol/L (98-107) Carbon Dioxide Level 10 mmol/L (21-32) Anion Gap 25 (6-14) Blood Urea Nitrogen 49 mg/dL (8-26) Creatinine 3.6 mg/dL (0.7-1.3) Estimated GFR (Cockcroft-Gault) 17.3 BUN/Creatinine Ratio 14 (6-20) Glucose Level 129 mg/dL (70-99) Lactic Acid Level 14.9 mmol/L (0.4-2.0) Calcium Level 7.7 mg/dL (8.5-10.1) Magnesium Level 2.1 mg/dL (1.8-2.4) Total Bilirubin 2.9 mg/dL (0.2-1.0) Aspartate Amino Transf (AST/SGOT) 4514 U/L (15-37) Alanine Aminotransferase (ALT/SGPT) 1550 U/L (16-63) Alkaline Phosphatase 104 U/L (46-116) Creatine Kinase 210 U/L (39-308) Troponin I Quantitative 0.073 ng/mL (0.000-0.055) NK-Jqj-S-Type Natriuretic Peptide 3776 pg/mL (0-124) Total Protein 5.8 g/dL (6.4-8.2) Albumin 2.7 g/dL (3.4-5.0) Albumin/Globulin Ratio 0.9 (1.0-1.7) Lipase 408 U/L (73-393) Procalcitonin 0.88 ng/mL (0.00-0.10) Acetaminophen Level 2.7 mcg/ml (10-30) Acetaminophen Last Dose Date Unk Acetaminophen Last Dose Time Unk Ethyl Alcohol Level < 10 mg/dL (0-10) Test 10/10/18 22:56 10/10/18 23:41 10/11/18 00:45 10/11/18 02:00 Glucose (Fingerstick) 111 mg/dL (70-99) Ammonia 28 mcmol/L (11-34) O2 Saturation 97 % (92-99) Arterial Blood pH 7.19 (7.35-7.45) Arterial Blood pCO2 at Patient Temp 19 mmHg (35-46) Arterial Blood pO2 at Patient Temp 125 mmHg (65-108) Arterial Blood HCO3 7 mmol/L (21-28) Arterial Blood Base Excess -19 mmol/L (-3-3) FiO2 40% Lactic Acid Level 13.3 mmol/L (0.4-2.0) Test 10/11/18 05:40 10/11/18 08:00 10/11/18 08:10 10/11/18 11:25 White Blood Count 12.0 x10^3/uL (4.0-11.0) 9.7 x10^3/uL (4.0-11.0) Red Blood Count 4.01 x10^6/uL (4.30-5.70) 3.96 x10^6/uL (4.30-5.70) Hemoglobin 8.4 g/dL (13.0-17.5) 8.2 g/dL (13.0-17.5) Hematocrit 28.4 % (39.0-53.0) 26.8 % (39.0-53.0) Mean Corpuscular Volume 71 fL (79-100) 68 fL (79-100) Mean Corpuscular Hemoglobin 21 pg (25-35) 21 pg (25-35) Mean Corpuscular Hemoglobin Concent 30 g/dL (31-37) 31 g/dL (31-37) Red Cell Distribution Width 27.6 % (11.5-14.5) 27.2 % (11.5-14.5) Platelet Count 146 x10^3/uL (140-400) 123 x10^3/uL (140-400) Neutrophils (%) (Auto) 82 % (31-73) 87 % (31-73) Lymphocytes (%) (Auto) 8 % (24-48) 8 % (24-48) Monocytes (%) (Auto) 8 % (0-9) 5 % (0-9) Eosinophils (%) (Auto) 1 % (0-3) 0 % (0-3) Basophils (%) (Auto) 0 % (0-3) 0 % (0-3) Neutrophils # (Auto) 9.9 x10^3uL (1.8-7.7) 8.5 x10^3uL (1.8-7.7) Lymphocytes # (Auto) 1.0 x10^3/uL (1.0-4.8) 0.7 x10^3/uL (1.0-4.8) Monocytes # (Auto) 1.0 x10^3/uL (0.0-1.1) 0.5 x10^3/uL (0.0-1.1) Eosinophils # (Auto) 0.1 x10^3/uL (0.0-0.7) 0.0 x10^3/uL (0.0-0.7) Basophils # (Auto) 0.0 x10^3/uL (0.0-0.2) 0.0 x10^3/uL (0.0-0.2) Sodium Level 134 mmol/L (136-145) Potassium Level 5.6 mmol/L (3.5-5.1) Chloride Level 96 mmol/L (98-107) Carbon Dioxide Level 15 mmol/L (21-32) Anion Gap 23 (6-14) Blood Urea Nitrogen 60 mg/dL (8-26) Creatinine 4.1 mg/dL (0.7-1.3) Estimated GFR (Cockcroft-Gault) 14.9 BUN/Creatinine Ratio 15 (6-20) Glucose Level 114 mg/dL (70-99) Calcium Level 8.1 mg/dL (8.5-10.1) Total Bilirubin 3.6 mg/dL (0.2-1.0) Aspartate Amino Transf (AST/SGOT) 7583 U/L (15-37) Alanine Aminotransferase (ALT/SGPT) 2622 U/L (16-63) Alkaline Phosphatase 124 U/L (46-116) Total Protein 6.6 g/dL (6.4-8.2) Albumin 3.3 g/dL (3.4-5.0) Albumin/Globulin Ratio 1.0 (1.0-1.7) Salicylates Level < 2.8 mg/dL (2.8-20.0) Salicylate Last Dose Date 10/10/18 Salicylate Last Dose Time 1130 Prothrombin Time 48.2 SEC (11.7-14.0) Prothromb Time International Ratio 5.2 (0.8-1.1) Activated Partial Thromboplast Time 41 SEC (24-38) Lactic Acid Level 4.5 mmol/L (0.4-2.0) Test 10/11/18 19:30 10/12/18 00:05 10/12/18 05:00 White Blood Count 6.6 x10^3/uL (4.0-11.0) 7.9 x10^3/uL (4.0-11.0) 8.0 x10^3/uL (4.0-11.0) Red Blood Count 3.89 x10^6/uL (4.30-5.70) 4.03 x10^6/uL (4.30-5.70) 3.87 x10^6/uL (4.30-5.70) Hemoglobin 8.2 g/dL (13.0-17.5) 8.3 g/dL (13.0-17.5) 8.2 g/dL (13.0-17.5) Hematocrit 25.9 % (39.0-53.0) 27.0 % (39.0-53.0) 25.8 % (39.0-53.0) Mean Corpuscular Volume 66 fL (79-100) 67 fL (79-100) 67 fL (79-100) Mean Corpuscular Hemoglobin 21 pg (25-35) 21 pg (25-35) 21 pg (25-35) Mean Corpuscular Hemoglobin Concent 32 g/dL (31-37) 31 g/dL (31-37) 32 g/dL (31-37) Red Cell Distribution Width 28.1 % (11.5-14.5) 27.7 % (11.5-14.5) 27.3 % (11.5-14.5) Platelet Count 98 x10^3/uL (140-400) 96 x10^3/uL (140-400) 90 x10^3/uL (140-400) Neutrophils (%) (Auto) 85 % (31-73) 86 % (31-73) 86 % (31-73) Lymphocytes (%) (Auto) 11 % (24-48) 10 % (24-48) 10 % (24-48) Monocytes (%) (Auto) 3 % (0-9) 4 % (0-9) 4 % (0-9) Eosinophils (%) (Auto) 1 % (0-3) 0 % (0-3) 0 % (0-3) Basophils (%) (Auto) 0 % (0-3) 0 % (0-3) 0 % (0-3) Neutrophils # (Auto) 5.6 x10^3uL (1.8-7.7) 6.8 x10^3uL (1.8-7.7) 6.9 x10^3uL (1.8-7.7) Lymphocytes # (Auto) 0.7 x10^3/uL (1.0-4.8) 0.8 x10^3/uL (1.0-4.8) 0.8 x10^3/uL (1.0-4.8) Monocytes # (Auto) 0.2 x10^3/uL (0.0-1.1) 0.3 x10^3/uL (0.0-1.1) 0.3 x10^3/uL (0.0-1.1) Eosinophils # (Auto) 0.0 x10^3/uL (0.0-0.7) 0.0 x10^3/uL (0.0-0.7) 0.0 x10^3/uL (0.0-0.7) Basophils # (Auto) 0.0 x10^3/uL (0.0-0.2) 0.0 x10^3/uL (0.0-0.2) 0.0 x10^3/uL (0.0-0.2) Prothrombin Time 40.4 SEC (11.7-14.0) Prothromb Time International Ratio 4.2 (0.8-1.1) Sodium Level 137 mmol/L (136-145) Potassium Level 3.1 mmol/L (3.5-5.1) Chloride Level 98 mmol/L (98-107) Carbon Dioxide Level 32 mmol/L (21-32) Anion Gap 7 (6-14) Blood Urea Nitrogen 35 mg/dL (8-26) Creatinine 2.0 mg/dL (0.7-1.3) Estimated GFR (Cockcroft-Gault) 34.0 BUN/Creatinine Ratio 18 (6-20) Glucose Level 177 mg/dL (70-99) Calcium Level 7.7 mg/dL (8.5-10.1) Total Bilirubin 3.2 mg/dL (0.2-1.0) Aspartate Amino Transf (AST/SGOT) 3722 U/L (15-37) Alanine Aminotransferase (ALT/SGPT) 2141 U/L (16-63) Alkaline Phosphatase 106 U/L (46-116) Total Protein 5.2 g/dL (6.4-8.2) Albumin 2.4 g/dL (3.4-5.0) Albumin/Globulin Ratio 0.9 (1.0-1.7) Laboratory Tests Test 10/11/18 11:25 10/11/18 19:30 10/12/18 00:05 10/12/18 05:00 White Blood Count 9.7 x10^3/uL (4.0-11.0) 6.6 x10^3/uL (4.0-11.0) 7.9 x10^3/uL (4.0-11.0) 8.0 x10^3/uL (4.0-11.0) Red Blood Count 3.96 x10^6/uL (4.30-5.70) 3.89 x10^6/uL (4.30-5.70) 4.03 x10^6/uL (4.30-5.70) 3.87 x10^6/uL (4.30-5.70) Hemoglobin 8.2 g/dL (13.0-17.5) 8.2 g/dL (13.0-17.5) 8.3 g/dL (13.0-17.5) 8.2 g/dL (13.0-17.5) Hematocrit 26.8 % (39.0-53.0) 25.9 % (39.0-53.0) 27.0 % (39.0-53.0) 25.8 % (39.0-53.0) Mean Corpuscular Volume 68 fL (79-100) 66 fL (79-100) 67 fL (79-100) 67 fL (79-100) Mean Corpuscular Hemoglobin 21 pg (25-35) 21 pg (25-35) 21 pg (25-35) 21 pg (25-35) Mean Corpuscular Hemoglobin Concent 31 g/dL (31-37) 32 g/dL (31-37) 31 g/dL (31-37) 32 g/dL (31-37) Red Cell Distribution Width 27.2 % (11.5-14.5) 28.1 % (11.5-14.5) 27.7 % (11.5-14.5) 27.3 % (11.5-14.5) Platelet Count 123 x10^3/uL (140-400) 98 x10^3/uL (140-400) 96 x10^3/uL (140-400) 90 x10^3/uL (140-400) Neutrophils (%) (Auto) 87 % (31-73) 85 % (31-73) 86 % (31-73) 86 % (31-73) Lymphocytes (%) (Auto) 8 % (24-48) 11 % (24-48) 10 % (24-48) 10 % (24-48) Monocytes (%) (Auto) 5 % (0-9) 3 % (0-9) 4 % (0-9) 4 % (0-9) Eosinophils (%) (Auto) 0 % (0-3) 1 % (0-3) 0 % (0-3) 0 % (0-3) Basophils (%) (Auto) 0 % (0-3) 0 % (0-3) 0 % (0-3) 0 % (0-3) Neutrophils # (Auto) 8.5 x10^3uL (1.8-7.7) 5.6 x10^3uL (1.8-7.7) 6.8 x10^3uL (1.8-7.7) 6.9 x10^3uL (1.8-7.7) Lymphocytes # (Auto) 0.7 x10^3/uL (1.0-4.8) 0.7 x10^3/uL (1.0-4.8) 0.8 x10^3/uL (1.0-4.8) 0.8 x10^3/uL (1.0-4.8) Monocytes # (Auto) 0.5 x10^3/uL (0.0-1.1) 0.2 x10^3/uL (0.0-1.1) 0.3 x10^3/uL (0.0-1.1) 0.3 x10^3/uL (0.0-1.1) Eosinophils # (Auto) 0.0 x10^3/uL (0.0-0.7) 0.0 x10^3/uL (0.0-0.7) 0.0 x10^3/uL (0.0-0.7) 0.0 x10^3/uL (0.0-0.7) Basophils # (Auto) 0.0 x10^3/uL (0.0-0.2) 0.0 x10^3/uL (0.0-0.2) 0.0 x10^3/uL (0.0-0.2) 0.0 x10^3/uL (0.0-0.2) Lactic Acid Level 4.5 mmol/L (0.4-2.0) Prothrombin Time 40.4 SEC (11.7-14.0) Prothromb Time International Ratio 4.2 (0.8-1.1) Sodium Level 137 mmol/L (136-145) Potassium Level 3.1 mmol/L (3.5-5.1) Chloride Level 98 mmol/L (98-107) Carbon Dioxide Level 32 mmol/L (21-32) Anion Gap 7 (6-14) Blood Urea Nitrogen 35 mg/dL (8-26) Creatinine 2.0 mg/dL (0.7-1.3) Estimated GFR (Cockcroft-Gault) 34.0 BUN/Creatinine Ratio 18 (6-20) Glucose Level 177 mg/dL (70-99) Calcium Level 7.7 mg/dL (8.5-10.1) Total Bilirubin 3.2 mg/dL (0.2-1.0) Aspartate Amino Transf (AST/SGOT) 3722 U/L (15-37) Alanine Aminotransferase (ALT/SGPT) 2141 U/L (16-63) Alkaline Phosphatase 106 U/L (46-116) Total Protein 5.2 g/dL (6.4-8.2) Albumin 2.4 g/dL (3.4-5.0) Albumin/Globulin Ratio 0.9 (1.0-1.7) Microbiology 10/10/18 Blood Culture - Preliminary, Resulted NO GROWTH AFTER 1 DAY Medications Current Medications Sodium Chloride 1,000 ml @ 1,000 mls/hr 1X ONCE IV Last administered on 10/10/18at 22:43; Start 10/10/18 at 22:00; Stop 10/10/18 at 22:59; Status DC Sodium Chloride 1,000 ml @ 1,000 mls/hr 1X ONCE IV Last administered on 10/10/18at 22:42; Start 10/10/18 at 22:00; Stop 10/10/18 at 22:59; Status DC Piperacillin Sod/ Tazobactam Sod (Zosyn Per Pharmacy) 1 each PRN DAILY PRN MC SEE COMMENTS; Start 10/10/18 at 22:00; Stop 10/10/18 at 22:33; Status DC Piperacillin Sod/ Tazobactam Sod 3.375 gm/Sodium Chloride 50 ml @ 100 mls/hr 1X ONCE IV Last administered on 10/10/18at 22:44; Start 10/10/18 at 22:15; Stop at 22:44; Status DC Sodium Bicarbonate (Sodium Bicarb Adult 8.4% Syr) 50 meq 1X ONCE IV Last administered on 10/10/18at 22:43; Start 10/10/18 at 22:30; Stop 10/10/18 at 22:31; Status DC Calcium Gluconate (Calcium Gluconate) 1,000 mg 1X ONCE IVP Last administered on 10/10/18at 22:43; Start 10/10/18 at 22:30; Stop 10/10/18 at 22:31; Status DC Piperacillin Sod/ Tazobactam Sod (Zosyn Per Pharmacy) 1 each PRN DAILY PRN MC SEE COMMENTS; Start 10/10/18 at 22:45 Pantoprazole Sodium 80 mg/ Sodium Chloride 100 ml @ 10 mls/hr Q10H IV Last administered on 10/12/18at 08:31; Start 10/10/18 at 23:30 Phytonadione 10 mg/Dextrose 51 ml @ 102 mls/hr 1X ONCE IV Last administered on 10/10/18at 23:46; Start 10/10/18 at 23:30; Stop 10/10/18 at 23:59; Status DC Octreotide Acetate 500 mcg/ Sodium Chloride 101 ml @ 0 mls/hr CONT PRN IV SEE I/O RECORD Last administered on 10/12/18at 08:32; Start 10/10/18 at 23:45 Sodium Bicarbonate 50 meq/Dextrose 1,050 ml @ 125 mls/hr 1X ONCE IV Last administered on 10/11/18at 00:01; Start 10/10/18 at 23:55; Stop 10/11/18 at 08:18; Status DC Piperacillin Sod/ Tazobactam Sod 2.25 gm/Sodium Chloride 50 ml @ 100 mls/hr Q6HRS IV Last administered on 10/11/18at 05:30; Start 10/11/18 at 06:00; Stop 10/11/18 at 08:25; Status DC Meropenem 500 mg/ Sodium Chloride 50 ml @ 100 mls/hr Q8HRS IV ; Start 10/11/18 at 14:00; Stop 10/11/18 at 14:00; Status DC Ondansetron HCl (Zofran) 4 mg 1X ONCE IV Last administered on 10/11/18at 06:41; Start 10/11/18 at 06:45; Stop 10/11/18 at 06:46; Status DC Thiamine HCl 100 mg/Dextrose 51 ml @ 102 mls/hr 1X ONCE IV Last administered on 10/11/18at 07:40; Start 10/11/18 at 07:00; Stop 10/11/18 at 07:29; Status DC Folic Acid (Folic Acid) 1 mg DAILY PO ; Start 10/11/18 at 09:00 Levofloxacin/ Dextrose 50 ml @ 50 mls/hr 1X ONCE IV Last administered on 10/11/18at 07:42; Start 10/11/18 at 07:00; Stop 10/11/18 at 07:59; Status DC Albuterol Sulfate (Ventolin Neb Soln) 2.5 mg PRN Q4HRS PRN NEB SHORTNESS OF BREATH; Start 10/11/18 at 07:15 Lorazepam (Ativan) 1 mg 1X ONCE IV Last administered on 10/11/18at 07:37; Start 10/11/18 at 07:30; Stop 10/11/18 at 09:35; Status DC Lorazepam (Ativan) 1 mg PRN Q3HRS PRN IV ANXIETY / AGITATION; Start 10/11/18 at 08:00; Stop 10/11/18 at 09:35; Status DC Piperacillin Sod/ Tazobactam Sod 2.25 gm/Sodium Chloride 50 ml @ 100 mls/hr Q8HRS IV Last administered on 10/12/18at 06:08; Start 10/11/18 at 14:00 Ondansetron HCl (Zofran) 4 mg PRN Q6HRS PRN IV NAUSEA/VOMITING; Start 10/11/18 at 08:45 Lactulose (Lactulose) 30 gm TID PO ; Start 10/11/18 at 09:30; Stop 10/11/18 at 11:25; Status DC Sodium Bicarbonate 50 meq/Dextrose 1,050 ml @ 125 mls/hr Q8H24M IV Last administered on 10/12/18at 02:21; Start 10/11/18 at 10:00 Dexmedetomidine HCl 200 mcg/ Sodium Chloride 50 ml @ 0 mls/hr CONT PRN IV PER PROTOCOL Last administered on 10/12/18at 06:09; Start 10/11/18 at 09:45 Sodium Chloride 500 ml @ 500 mls/hr 1X PRN PRN IV SEE COMMENTS; Start 10/11/18 at 09:45 Atropine Sulfate (ATROPINE 0.5mg SYRINGE) 0.5 mg PRN Q5MIN PRN IV SEE COMMENTS; Start 10/11/18 at 09:45 Sodium Bicarbonate (Sodium Bicarb Adult 8.4% Syr) 50 meq STK-MED ONCE .ROUTE ; Start 10/11/18 at 09:42; Stop 10/11/18 at 09:43; Status DC Sodium Bicarbonate (Sodium Bicarb Adult 8.4% Syr) 100 meq 1X ONCE IV Last administered on 10/11/18at 10:00; Start 10/11/18 at 10:00; Stop 10/11/18 at 10:01; Status DC Lactulose (Lactulose) 30 gm TID WI ; Start 10/11/18 at 12:00; Stop 10/11/18 at 13:06; Status DC Lidocaine/Sodium Bicarbonate (Buffered Lidocaine 1%) 3 ml STK-MED ONCE .ROUTE ; Start 10/11/18 at 12:34; Stop 10/11/18 at 12:35; Status DC Heparin Sodium (Porcine) (Heparin Sodium) 10,000 unit STK-MED ONCE .ROUTE ; Start 10/11/18 at 12:34; Stop 10/11/18 at 12:35; Status DC Lactulose (Lactulose) 200 gm TID WI Last administered on 10/11/18at 20:55; Start 10/11/18 at 14:00 Sodium Chloride 1,000 ml @ 1,000 mls/hr Q1H PRN IV hypotension; Start 10/11/18 at 13:06; Stop 10/11/18 at 19:05; Status DC Albumin Human 200 ml @ 200 mls/hr 1X PRN PRN IV Hypotension; Start 10/11/18 at 13:15; Stop 10/11/18 at 19:14; Status DC Sodium Chloride (Normal Saline Flush) 10 ml 1X PRN PRN IV AP catheter pack; Start 10/11/18 at 13:15; Stop 10/12/18 at 13:14 Sodium Chloride (Normal Saline Flush) 10 ml 1X PRN PRN IV M[employer] catheter pack; Start 10/11/18 at 13:15; Stop 10/12/18 at 13:14 Sodium Chloride 1,000 ml @ 400 mls/hr Q2H30M PRN IV PATENCY; Start 10/11/18 at 13:06; Stop 10/12/18 at 01:05; Status DC Info (PHARMACY MONITORING -- do not chart) 1 each PRN DAILY PRN MC SEE COMMENTS; Start 10/11/18 at 13:15; Status UNV Info (PHARMACY MONITORING -- do not chart) 1 each PRN DAILY PRN MC SEE COMMENTS; Start 10/11/18 at 13:15 Lidocaine/Sodium Bicarbonate (Buffered Lidocaine 1%) 6 ml 1X ONCE INJ Last administered on 10/11/18at 13:42; Start 10/11/18 at 13:45; Stop 10/11/18 at 13:46; Status DC Active Scripts Active Lactulose 20 Gm/30 Ml Solution 20 Gm PO PRN TID PRN 30 Days Klor-Con M20 (Potassium Chloride) 20 Meq Tab.er.prt 40 Meq PO DAILY 30 Days [Pantoprazole] 40 MG Tablet.dr 40 Mg PO DAILYAC 30 Days Hydroxyzine Pamoate 25 Mg Capsule 25 Mg PO PRN Q8HRS PRN 30 Days Aspirin Ec (Aspirin) 81 Mg Tablet.dr 81 Mg PO DAILYWBKFT 30 Days [Diltiazem Hcl] 240 MG Cap.er.24h 240 Mg PO DAILY 30 Days Metoprolol Tartrate 25 Mg Tablet 25 Mg PO BID 30 Days Vitamin B-1 (Thiamine Mononitrate) 100 Mg Tablet 100 Mg PO DAILY Hydrocodone-Apap 7.5-325 (Hydrocodone Bit/Acetaminophen) 1 Each Tablet 1 Tab PO PRN Q3HRS PRN Folic Acid 1 Mg Tablet 1 Mg PO DAILY Reported Tums (Calcium Carbonate) 300 Mg Tab.chew 300 Mg PO TIDAC PRN Cyclobenzaprine Hcl 10 Mg Tablet 1 Tab PO QHS Gabapentin (Gabapentin) 300 Mg Capsule 300 Mg PO TID Vitals/I & O Vital Sign - Last 24 Hours 10/11/18 10/11/18 10/11/18 10/11/18 10:00 11:00 12:00 12:04 Temp 99.1 99.1 Pulse 86 85 87 Resp 21 19 25 B/P (MAP) 118/66 (83) 116/63 (80) 123/59 (80) Pulse Ox 99 100 95 O2 Delivery Nasal Cannula Nasal Cannula Nasal Cannula Nasal Cannula O2 Flow Rate 2.0 2.0 5.0 2.0 10/11/18 10/11/18 10/11/18 10/11/18 13:00 13:20 14:00 15:00 Pulse 84 82 80 Resp 22 19 16 B/P (MAP) 109/57 (74) 96/60 (72) 99/64 (76) Pulse Ox 95 95 96 99 O2 Delivery Nasal Cannula Nasal Cannula Nasal Cannula Nasal Cannula O2 Flow Rate 2.0 3.0 2.0 2.0 10/11/18 10/11/18 10/11/18 10/11/18 16:00 16:00 17:00 18:00 Temp 98.4 98.4 Pulse 84 87 102 Resp 14 14 13 B/P (MAP) 109/66 (80) 115/56 (75) 103/58 (73) Pulse Ox 100 100 98 O2 Delivery Nasal Cannula Nasal Cannula Nasal Cannula Nasal Cannula O2 Flow Rate 2.0 2.0 2.0 2.0 10/11/18 10/11/18 10/11/18 10/11/18 19:00 20:00 20:00 21:00 Temp 98.6 98.6 Pulse 82 104 108 Resp 12 14 13 B/P (MAP) 95/62 (73) 117/63 (81) 118/72 (87) Pulse Ox 95 95 99 O2 Delivery Nasal Cannula Nasal Cannula Nasal Cannula Nasal Cannula O2 Flow Rate 2.0 2.0 2.0 2.0 10/11/18 10/11/18 10/12/18 10/12/18 22:00 23:00 00:00 00:00 Temp 98.1 98.1 Pulse 96 91 88 Resp 12 10 11 B/P (MAP) 103/67 (79) 109/67 (81) 99/77 (84) Pulse Ox 99 97 98 O2 Delivery Nasal Cannula Nasal Cannula Nasal Cannula Nasal Cannula O2 Flow Rate 2.0 2.0 2.0 2.0 10/12/18 10/12/18 10/12/18 10/12/18 01:00 02:00 03:00 03:45 Pulse 89 79 89 Resp 19 10 10 B/P (MAP) 123/72 (89) 122/74 (90) 119/79 (92) Pulse Ox 98 98 98 O2 Delivery Nasal Cannula Nasal Cannula Nasal Cannula Nasal Cannula O2 Flow Rate 2.0 2.0 2.0 2.0 10/12/18 10/12/18 10/12/18 10/12/18 04:00 05:00 06:00 07:00 Temp 97.7 97.7 Pulse 94 83 98 83 Resp 10 10 12 10 B/P (MAP) 103/72 (82) 117/75 (89) 123/83 (96) 106/61 (76) Pulse Ox 97 95 93 93 O2 Delivery Nasal Cannula Nasal Cannula Nasal Cannula Nasal Cannula O2 Flow Rate 2.0 2.0 2.0 2.0 10/12/18 10/12/18 08:00 08:00 Temp 97.5 97.5 Pulse 83 Resp 10 B/P (MAP) 119/79 (92) Pulse Ox 94 O2 Delivery Nasal Cannula Nasal Cannula O2 Flow Rate 2.0 2.0 Intake and Output 10/11/18 10/11/18 10/12/18 15:00 23:00 07:00 Intake Total 1892 ml 1879 ml Output Total 735 ml 1100 ml 1295 ml Balance -735 ml 792 ml 584 ml REESE HENAO MD October 12, 2018 09:26
[2018-10-12] MEDS ORDERED: LACTULOSE 20 GM/30 ML SOLUTION. PR PRN (09:30)
[2018-10-12] MEDS ORDERED: AMINO AC 3%/ELECTROLYTE/GLYCER 1,000 ML IV ONE (09:58)
[2018-10-12] MEDS: AMINO AC 3%/ELECTROLYTE/GLYCER 1,000 ML IV SCH (10:00)
--- NOTE | 2018-10-12 10:24 | PDOC ---
PULMONARY PROGRESS NOTES Subjective remains lethargic, on precedex drip Vitals Vital Signs Date Time Temp Pulse Resp B/P (MAP) Pulse Ox O2 Delivery O2 Flow Rate FiO2 10/12/18 10:00 80 9 135/83 (100) 94 Nasal Cannula 5.0 10/12/18 08:00 97.5 97.5 General: Lethargic Lungs: Other (decrease bs) Cardiovascular: S1 Abdomen: Soft Extremities: No Edema Skin: Warm Labs Laboratory Tests Test 10/10/18 21:07 10/10/18 21:45 10/10/18 21:57 10/10/18 22:30 Urine Collection Type Unknown Urine Color [place] Urine Clarity Clear Urine pH 5.5 Urine Specific [place] 1.020 Urine Protein 100 mg/dL (NEG-TRACE) Urine Glucose (UA) Negative mg/dL (NEG) Urine Ketones (Stick) Trace mg/dL (NEG) Urine Blood Small (NEG) Urine Nitrite Negative (NEG) Urine Bilirubin Small (NEG) Urine Urobilinogen Dipstick 1.0 mg/dL (0.2 mg/dL) Urine Leukocyte Esterase Negative (NEG) Urine RBC 3-5 /HPF (0-2) Urine WBC Occ /HPF (0-4) Urine Squamous Epithelial Cells Occ /LPF Urine Bacteria 0 /HPF (0-FEW) Urine Hyaline Casts Many /HPF Urine Mucus Marked /LPF Urine Opiates Screen Neg (NEG) Urine Methadone Screen Neg (NEG) Urine Barbiturates Neg (NEG) Urine Phencyclidine Screen Neg (NEG) Urine Amphetamine/Methamphetamine Neg (NEG) Urine Benzodiazepines Screen Neg (NEG) Urine Cocaine Screen Neg (NEG) Urine Cannabinoids Screen Neg (NEG) Urine Ethyl Alcohol Neg (NEG) Glucose (Fingerstick) 137 mg/dL (70-99) Stool Occult Blood Positive (NEG) O2 Saturation 98 % (92-99) Arterial Blood pH 7.18 (7.35-7.45) Arterial Blood pCO2 at Patient Temp < 15 mmHg (35-46) Arterial Blood pO2 at Patient Temp 134 mmHg (65-108) Arterial Blood HCO3 5 mmol/L (21-28) Arterial Blood Base Excess -21 mmol/L (-3-3) White Blood Count 14.7 x10^3/uL (4.0-11.0) Red Blood Count 3.26 x10^6/uL (4.30-5.70) Hemoglobin 6.5 g/dL (13.0-17.5) Hematocrit 23.4 % (39.0-53.0) Mean Corpuscular Volume 72 fL (79-100) Mean Corpuscular Hemoglobin 20 pg (25-35) Mean Corpuscular Hemoglobin Concent 28 g/dL (31-37) Red Cell Distribution Width 27.3 % (11.5-14.5) Platelet Count 141 x10^3/uL (140-400) Neutrophils (%) (Auto) 81 % (31-73) Lymphocytes (%) (Auto) 7 % (24-48) Monocytes (%) (Auto) 11 % (0-9) Eosinophils (%) (Auto) 1 % (0-3) Basophils (%) (Auto) 0 % (0-3) Neutrophils # (Auto) 11.9 x10^3uL (1.8-7.7) Lymphocytes # (Auto) 1.0 x10^3/uL (1.0-4.8) Monocytes # (Auto) 1.5 x10^3/uL (0.0-1.1) Eosinophils # (Auto) 0.1 x10^3/uL (0.0-0.7) Basophils # (Auto) 0.0 x10^3/uL (0.0-0.2) Segmented Neutrophils % 80 % (35-66) Band Neutrophils % 9 % (0-9) Lymphocytes % 7 % (24-48) Monocytes % 4 % (0-10) Nucleated Red Blood Cells 6 Platelet Estimate Adequate (ADEQUATE) Polychromasia Slight Hypochromasia Mod Anisocytosis Marked Microcytosis Mod Ovalocytes Few [place] Cells Many Schistocytes Few Prothrombin Time 52.5 SEC (11.7-14.0) Prothromb Time International Ratio 5.8 (0.8-1.1) Sodium Level 136 mmol/L (136-145) Potassium Level 5.1 mmol/L (3.5-5.1) Chloride Level 101 mmol/L (98-107) Carbon Dioxide Level 10 mmol/L (21-32) Anion Gap 25 (6-14) Blood Urea Nitrogen 49 mg/dL (8-26) Creatinine 3.6 mg/dL (0.7-1.3) Estimated GFR (Cockcroft-Gault) 17.3 BUN/Creatinine Ratio 14 (6-20) Glucose Level 129 mg/dL (70-99) Lactic Acid Level 14.9 mmol/L (0.4-2.0) Calcium Level 7.7 mg/dL (8.5-10.1) Magnesium Level 2.1 mg/dL (1.8-2.4) Total Bilirubin 2.9 mg/dL (0.2-1.0) Aspartate Amino Transf (AST/SGOT) 4514 U/L (15-37) Alanine Aminotransferase (ALT/SGPT) 1550 U/L (16-63) Alkaline Phosphatase 104 U/L (46-116) Creatine Kinase 210 U/L (39-308) Troponin I Quantitative 0.073 ng/mL (0.000-0.055) NQ-Wnl-B-Type Natriuretic Peptide 3776 pg/mL (0-124) Total Protein 5.8 g/dL (6.4-8.2) Albumin 2.7 g/dL (3.4-5.0) Albumin/Globulin Ratio 0.9 (1.0-1.7) Lipase 408 U/L (73-393) Procalcitonin 0.88 ng/mL (0.00-0.10) Acetaminophen Level 2.7 mcg/ml (10-30) Acetaminophen Last Dose Date Unk Acetaminophen Last Dose Time Unk Ethyl Alcohol Level < 10 mg/dL (0-10) Test 10/10/18 22:56 10/10/18 23:41 10/11/18 00:45 10/11/18 02:00 Glucose (Fingerstick) 111 mg/dL (70-99) Ammonia 28 mcmol/L (11-34) O2 Saturation 97 % (92-99) Arterial Blood pH 7.19 (7.35-7.45) Arterial Blood pCO2 at Patient Temp 19 mmHg (35-46) Arterial Blood pO2 at Patient Temp 125 mmHg (65-108) Arterial Blood HCO3 7 mmol/L (21-28) Arterial Blood Base Excess -19 mmol/L (-3-3) FiO2 40% Lactic Acid Level 13.3 mmol/L (0.4-2.0) Test 10/11/18 05:40 10/11/18 08:00 10/11/18 08:10 10/11/18 11:25 White Blood Count 12.0 x10^3/uL (4.0-11.0) 9.7 x10^3/uL (4.0-11.0) Red Blood Count 4.01 x10^6/uL (4.30-5.70) 3.96 x10^6/uL (4.30-5.70) Hemoglobin 8.4 g/dL (13.0-17.5) 8.2 g/dL (13.0-17.5) Hematocrit 28.4 % (39.0-53.0) 26.8 % (39.0-53.0) Mean Corpuscular Volume 71 fL (79-100) 68 fL (79-100) Mean Corpuscular Hemoglobin 21 pg (25-35) 21 pg (25-35) Mean Corpuscular Hemoglobin Concent 30 g/dL (31-37) 31 g/dL (31-37) Red Cell Distribution Width 27.6 % (11.5-14.5) 27.2 % (11.5-14.5) Platelet Count 146 x10^3/uL (140-400) 123 x10^3/uL (140-400) Neutrophils (%) (Auto) 82 % (31-73) 87 % (31-73) Lymphocytes (%) (Auto) 8 % (24-48) 8 % (24-48) Monocytes (%) (Auto) 8 % (0-9) 5 % (0-9) Eosinophils (%) (Auto) 1 % (0-3) 0 % (0-3) Basophils (%) (Auto) 0 % (0-3) 0 % (0-3) Neutrophils # (Auto) 9.9 x10^3uL (1.8-7.7) 8.5 x10^3uL (1.8-7.7) Lymphocytes # (Auto) 1.0 x10^3/uL (1.0-4.8) 0.7 x10^3/uL (1.0-4.8) Monocytes # (Auto) 1.0 x10^3/uL (0.0-1.1) 0.5 x10^3/uL (0.0-1.1) Eosinophils # (Auto) 0.1 x10^3/uL (0.0-0.7) 0.0 x10^3/uL (0.0-0.7) Basophils # (Auto) 0.0 x10^3/uL (0.0-0.2) 0.0 x10^3/uL (0.0-0.2) Sodium Level 134 mmol/L (136-145) Potassium Level 5.6 mmol/L (3.5-5.1) Chloride Level 96 mmol/L (98-107) Carbon Dioxide Level 15 mmol/L (21-32) Anion Gap 23 (6-14) Blood Urea Nitrogen 60 mg/dL (8-26) Creatinine 4.1 mg/dL (0.7-1.3) Estimated GFR (Cockcroft-Gault) 14.9 BUN/Creatinine Ratio 15 (6-20) Glucose Level 114 mg/dL (70-99) Calcium Level 8.1 mg/dL (8.5-10.1) Total Bilirubin 3.6 mg/dL (0.2-1.0) Aspartate Amino Transf (AST/SGOT) 7583 U/L (15-37) Alanine Aminotransferase (ALT/SGPT) 2622 U/L (16-63) Alkaline Phosphatase 124 U/L (46-116) Total Protein 6.6 g/dL (6.4-8.2) Albumin 3.3 g/dL (3.4-5.0) Albumin/Globulin Ratio 1.0 (1.0-1.7) Salicylates Level < 2.8 mg/dL (2.8-20.0) Salicylate Last Dose Date 10/10/18 Salicylate Last Dose Time 1130 Prothrombin Time 48.2 SEC (11.7-14.0) Prothromb Time International Ratio 5.2 (0.8-1.1) Activated Partial Thromboplast Time 41 SEC (24-38) Lactic Acid Level 4.5 mmol/L (0.4-2.0) Test 10/11/18 19:30 10/12/18 00:05 10/12/18 05:00 White Blood Count 6.6 x10^3/uL (4.0-11.0) 7.9 x10^3/uL (4.0-11.0) 8.0 x10^3/uL (4.0-11.0) Red Blood Count 3.89 x10^6/uL (4.30-5.70) 4.03 x10^6/uL (4.30-5.70) 3.87 x10^6/uL (4.30-5.70) Hemoglobin 8.2 g/dL (13.0-17.5) 8.3 g/dL (13.0-17.5) 8.2 g/dL (13.0-17.5) Hematocrit 25.9 % (39.0-53.0) 27.0 % (39.0-53.0) 25.8 % (39.0-53.0) Mean Corpuscular Volume 66 fL (79-100) 67 fL (79-100) 67 fL (79-100) Mean Corpuscular Hemoglobin 21 pg (25-35) 21 pg (25-35) 21 pg (25-35) Mean Corpuscular Hemoglobin Concent 32 g/dL (31-37) 31 g/dL (31-37) 32 g/dL (31-37) Red Cell Distribution Width 28.1 % (11.5-14.5) 27.7 % (11.5-14.5) 27.3 % (11.5-14.5) Platelet Count 98 x10^3/uL (140-400) 96 x10^3/uL (140-400) 90 x10^3/uL (140-400) Neutrophils (%) (Auto) 85 % (31-73) 86 % (31-73) 86 % (31-73) Lymphocytes (%) (Auto) 11 % (24-48) 10 % (24-48) 10 % (24-48) Monocytes (%) (Auto) 3 % (0-9) 4 % (0-9) 4 % (0-9) Eosinophils (%) (Auto) 1 % (0-3) 0 % (0-3) 0 % (0-3) Basophils (%) (Auto) 0 % (0-3) 0 % (0-3) 0 % (0-3) Neutrophils # (Auto) 5.6 x10^3uL (1.8-7.7) 6.8 x10^3uL (1.8-7.7) 6.9 x10^3uL (1.8-7.7) Lymphocytes # (Auto) 0.7 x10^3/uL (1.0-4.8) 0.8 x10^3/uL (1.0-4.8) 0.8 x10^3/uL (1.0-4.8) Monocytes # (Auto) 0.2 x10^3/uL (0.0-1.1) 0.3 x10^3/uL (0.0-1.1) 0.3 x10^3/uL (0.0-1.1) Eosinophils # (Auto) 0.0 x10^3/uL (0.0-0.7) 0.0 x10^3/uL (0.0-0.7) 0.0 x10^3/uL (0.0-0.7) Basophils # (Auto) 0.0 x10^3/uL (0.0-0.2) 0.0 x10^3/uL (0.0-0.2) 0.0 x10^3/uL (0.0-0.2) Prothrombin Time 40.4 SEC (11.7-14.0) Prothromb Time International Ratio 4.2 (0.8-1.1) Sodium Level 137 mmol/L (136-145) Potassium Level 3.1 mmol/L (3.5-5.1) Chloride Level 98 mmol/L (98-107) Carbon Dioxide Level 32 mmol/L (21-32) Anion Gap 7 (6-14) Blood Urea Nitrogen 35 mg/dL (8-26) Creatinine 2.0 mg/dL (0.7-1.3) Estimated GFR (Cockcroft-Gault) 34.0 BUN/Creatinine Ratio 18 (6-20) Glucose Level 177 mg/dL (70-99) Calcium Level 7.7 mg/dL (8.5-10.1) Total Bilirubin 3.2 mg/dL (0.2-1.0) Aspartate Amino Transf (AST/SGOT) 3722 U/L (15-37) Alanine Aminotransferase (ALT/SGPT) 2141 U/L (16-63) Alkaline Phosphatase 106 U/L (46-116) Total Protein 5.2 g/dL (6.4-8.2) Albumin 2.4 g/dL (3.4-5.0) Albumin/Globulin Ratio 0.9 (1.0-1.7) Laboratory Tests Test 10/11/18 11:25 10/11/18 19:30 10/12/18 00:05 10/12/18 05:00 White Blood Count 9.7 x10^3/uL (4.0-11.0) 6.6 x10^3/uL (4.0-11.0) 7.9 x10^3/uL (4.0-11.0) 8.0 x10^3/uL (4.0-11.0) Red Blood Count 3.96 x10^6/uL (4.30-5.70) 3.89 x10^6/uL (4.30-5.70) 4.03 x10^6/uL (4.30-5.70) 3.87 x10^6/uL (4.30-5.70) Hemoglobin 8.2 g/dL (13.0-17.5) 8.2 g/dL (13.0-17.5) 8.3 g/dL (13.0-17.5) 8.2 g/dL (13.0-17.5) Hematocrit 26.8 % (39.0-53.0) 25.9 % (39.0-53.0) 27.0 % (39.0-53.0) 25.8 % (39.0-53.0) Mean Corpuscular Volume 68 fL (79-100) 66 fL (79-100) 67 fL (79-100) 67 fL (79-100) Mean Corpuscular Hemoglobin 21 pg (25-35) 21 pg (25-35) 21 pg (25-35) 21 pg (25-35) Mean Corpuscular Hemoglobin Concent 31 g/dL (31-37) 32 g/dL (31-37) 31 g/dL (31-37) 32 g/dL (31-37) Red Cell Distribution Width 27.2 % (11.5-14.5) 28.1 % (11.5-14.5) 27.7 % (11.5-14.5) 27.3 % (11.5-14.5) Platelet Count 123 x10^3/uL (140-400) 98 x10^3/uL (140-400) 96 x10^3/uL (140-400) 90 x10^3/uL (140-400) Neutrophils (%) (Auto) 87 % (31-73) 85 % (31-73) 86 % (31-73) 86 % (31-73) Lymphocytes (%) (Auto) 8 % (24-48) 11 % (24-48) 10 % (24-48) 10 % (24-48) Monocytes (%) (Auto) 5 % (0-9) 3 % (0-9) 4 % (0-9) 4 % (0-9) Eosinophils (%) (Auto) 0 % (0-3) 1 % (0-3) 0 % (0-3) 0 % (0-3) Basophils (%) (Auto) 0 % (0-3) 0 % (0-3) 0 % (0-3) 0 % (0-3) Neutrophils # (Auto) 8.5 x10^3uL (1.8-7.7) 5.6 x10^3uL (1.8-7.7) 6.8 x10^3uL (1.8-7.7) 6.9 x10^3uL (1.8-7.7) Lymphocytes # (Auto) 0.7 x10^3/uL (1.0-4.8) 0.7 x10^3/uL (1.0-4.8) 0.8 x10^3/uL (1.0-4.8) 0.8 x10^3/uL (1.0-4.8) Monocytes # (Auto) 0.5 x10^3/uL (0.0-1.1) 0.2 x10^3/uL (0.0-1.1) 0.3 x10^3/uL (0.0-1.1) 0.3 x10^3/uL (0.0-1.1) Eosinophils # (Auto) 0.0 x10^3/uL (0.0-0.7) 0.0 x10^3/uL (0.0-0.7) 0.0 x10^3/uL (0.0-0.7) 0.0 x10^3/uL (0.0-0.7) Basophils # (Auto) 0.0 x10^3/uL (0.0-0.2) 0.0 x10^3/uL (0.0-0.2) 0.0 x10^3/uL (0.0-0.2) 0.0 x10^3/uL (0.0-0.2) Lactic Acid Level 4.5 mmol/L (0.4-2.0) Prothrombin Time 40.4 SEC (11.7-14.0) Prothromb Time International Ratio 4.2 (0.8-1.1) Sodium Level 137 mmol/L (136-145) Potassium Level 3.1 mmol/L (3.5-5.1) Chloride Level 98 mmol/L (98-107) Carbon Dioxide Level 32 mmol/L (21-32) Anion Gap 7 (6-14) Blood Urea Nitrogen 35 mg/dL (8-26) Creatinine 2.0 mg/dL (0.7-1.3) Estimated GFR (Cockcroft-Gault) 34.0 BUN/Creatinine Ratio 18 (6-20) Glucose Level 177 mg/dL (70-99) Calcium Level 7.7 mg/dL (8.5-10.1) Total Bilirubin 3.2 mg/dL (0.2-1.0) Aspartate Amino Transf (AST/SGOT) 3722 U/L (15-37) Alanine Aminotransferase (ALT/SGPT) 2141 U/L (16-63) Alkaline Phosphatase 106 U/L (46-116) Total Protein 5.2 g/dL (6.4-8.2) Albumin 2.4 g/dL (3.4-5.0) Albumin/Globulin Ratio 0.9 (1.0-1.7) Medications Active Scripts Medications Dose Route/Sig Max Daily Dose Days Date Category Lactulose 20 Gm/30 Ml Solution 20 Gm PO PRN TID PRN 30 10/07/18 Rx Tums (Calcium Carbonate) 300 Mg Tab.chew 300 Mg PO TIDAC PRN 10/06/18 Reported Cyclobenzaprine Hcl 10 Mg Tablet 1 Tab PO QHS 10/06/18 Reported Gabapentin (Gabapentin) 300 Mg Capsule 300 Mg PO TID 10/06/18 Reported Klor-Con M20 (Potassium Chloride) 20 Meq Tab.er.prt 40 Meq PO DAILY 09/13/18 Rx [Pantoprazole] 40 MG Tablet.dr 40 Mg PO DAILYAC 09/13/18 Rx Hydroxyzine Pamoate 25 Mg Capsule 25 Mg PO PRN Q8HRS PRN 09/13/18 Rx Aspirin Ec (Aspirin) 81 Mg Tablet.dr 81 Mg PO DAILYWBKFT 09/13/18 Rx [Diltiazem Hcl] 240 MG Cap.er.24h 240 Mg PO DAILY 09/13/18 Rx Metoprolol Tartrate 25 Mg Tablet 25 Mg PO BID 09/13/18 Rx Vitamin B-1 (Thiamine Mononitrate) 100 Mg Tablet 100 Mg PO DAILY 02/07/17 Rx Hydrocodone-Apap 7.5-325 (Hydrocodone Bit/Acetaminophen) 1 Each Tablet 1 Tab PO PRN Q3HRS PRN 02/07/17 Rx Folic Acid 1 Mg Tablet 1 Mg PO DAILY 02/07/17 Rx Impression . 1. Acute hypoxic respiratory failure with multisystem organ involvement. The etiology of respiratory failure secondary to sepsis and acute liver failure. 2. Significantly abnormal liver function tests related to acute hepatic failure in a patient who has hepatitis C. 3. Acute blood loss anemia secondary to gastrointestinal bleed. 4. Coagulopathy with high INR of 5.2 related to liver disease and sepsis. 5. Thrombocytopenia. 6. Abnormal chest x-ray consistent with pneumonia. 7. Recently abnormal echo with [id number] mitral regurgitation and ejection fraction of 50%. 8. Severe metabolic acidosis secondary to lactic acidosis resulting from sepsis along with underlying liver failure. 9. Possible underlying COPD/tobaccoism. 10. Hyperkalemia. 11. NATHANIEL. ? Hepato-renal syndrome. Plan . 1. The patient is critically ill. At this time, I would continue with present oxygen along with p.r.n. BiPAP if needed. 2. Continue broad-spectrum antibiotics and follow ID recommendation. 3. Follow liver function tests and follow GI recommendations. 4. Correct coagulopathy.improving 5. Status post packed RBCs and follow hemoglobin closely. 6. Follow GI recommendations. 7. The patient is in acute renal failure and could be hepatorenal syndrome. follow renal recommendation . making urine ,may not need dialysis. 8. Severe coagulopathy. 9. Likely pneumonia. 10. Continued broad-spectrum antibiotic. 11. DNR/DNI 12. DC bicarb drip 13. start PPN 14. dc femoral line Addend: d/w brother. explained critical illness and grave prognosis. He agrees for DNR/DNI. This has been patients wishes as well. d/w DR Naranjo/ PCP Critical care time 30 minutes. RAMIREZ RIVERS MD October 12, 2018 10:24
--- NOTE | 2018-10-12 11:50 | PDOC ---
Renal-Progress Notes Subjective Notes Notes CONFUSED History of Present Illness Hx of present illness IMPROVED Vitals Vitals Vital Signs Date Time Temp Pulse Resp B/P (MAP) Pulse Ox O2 Delivery O2 Flow Rate FiO2 10/12/18 11:00 77 10 106/87 (93) 95 Nasal Cannula 5.0 10/12/18 08:00 97.5 97.5 Weight Weight [ ] I.O. Intake and Output Intake and Output 10/12/18 07:00 Intake Total 3771 ml Output Total 3130 ml Balance 641 ml Intake IV Total 1929 ml Other 1842 ml Output Urine Total 3130 ml # Bowel Movements 3 Labs Labs Laboratory Tests Test 10/11/18 19:30 10/12/18 00:05 10/12/18 05:00 White Blood Count 6.6 x10^3/uL (4.0-11.0) 7.9 x10^3/uL (4.0-11.0) 8.0 x10^3/uL (4.0-11.0) Red Blood Count 3.89 x10^6/uL (4.30-5.70) 4.03 x10^6/uL (4.30-5.70) 3.87 x10^6/uL (4.30-5.70) Hemoglobin 8.2 g/dL (13.0-17.5) 8.3 g/dL (13.0-17.5) 8.2 g/dL (13.0-17.5) Hematocrit 25.9 % (39.0-53.0) 27.0 % (39.0-53.0) 25.8 % (39.0-53.0) Mean Corpuscular Volume 66 fL (79-100) 67 fL (79-100) 67 fL (79-100) Mean Corpuscular Hemoglobin 21 pg (25-35) 21 pg (25-35) 21 pg (25-35) Mean Corpuscular Hemoglobin Concent 32 g/dL (31-37) 31 g/dL (31-37) 32 g/dL (31-37) Red Cell Distribution Width 28.1 % (11.5-14.5) 27.7 % (11.5-14.5) 27.3 % (11.5-14.5) Platelet Count 98 x10^3/uL (140-400) 96 x10^3/uL (140-400) 90 x10^3/uL (140-400) Neutrophils (%) (Auto) 85 % (31-73) 86 % (31-73) 86 % (31-73) Lymphocytes (%) (Auto) 11 % (24-48) 10 % (24-48) 10 % (24-48) Monocytes (%) (Auto) 3 % (0-9) 4 % (0-9) 4 % (0-9) Eosinophils (%) (Auto) 1 % (0-3) 0 % (0-3) 0 % (0-3) Basophils (%) (Auto) 0 % (0-3) 0 % (0-3) 0 % (0-3) Neutrophils # (Auto) 5.6 x10^3uL (1.8-7.7) 6.8 x10^3uL (1.8-7.7) 6.9 x10^3uL (1.8-7.7) Lymphocytes # (Auto) 0.7 x10^3/uL (1.0-4.8) 0.8 x10^3/uL (1.0-4.8) 0.8 x10^3/uL (1.0-4.8) Monocytes # (Auto) 0.2 x10^3/uL (0.0-1.1) 0.3 x10^3/uL (0.0-1.1) 0.3 x10^3/uL (0.0-1.1) Eosinophils # (Auto) 0.0 x10^3/uL (0.0-0.7) 0.0 x10^3/uL (0.0-0.7) 0.0 x10^3/uL (0.0-0.7) Basophils # (Auto) 0.0 x10^3/uL (0.0-0.2) 0.0 x10^3/uL (0.0-0.2) 0.0 x10^3/uL (0.0-0.2) Prothrombin Time 40.4 SEC (11.7-14.0) Prothromb Time International Ratio 4.2 (0.8-1.1) Sodium Level 137 mmol/L (136-145) Potassium Level 3.1 mmol/L (3.5-5.1) Chloride Level 98 mmol/L (98-107) Carbon Dioxide Level 32 mmol/L (21-32) Anion Gap 7 (6-14) Blood Urea Nitrogen 35 mg/dL (8-26) Creatinine 2.0 mg/dL (0.7-1.3) Estimated GFR (Cockcroft-Gault) 34.0 BUN/Creatinine Ratio 18 (6-20) Glucose Level 177 mg/dL (70-99) Calcium Level 7.7 mg/dL (8.5-10.1) Total Bilirubin 3.2 mg/dL (0.2-1.0) Aspartate Amino Transf (AST/SGOT) 3722 U/L (15-37) Alanine Aminotransferase (ALT/SGPT) 2141 U/L (16-63) Alkaline Phosphatase 106 U/L (46-116) Total Protein 5.2 g/dL (6.4-8.2) Albumin 2.4 g/dL (3.4-5.0) Albumin/Globulin Ratio 0.9 (1.0-1.7) Micro Micro Microbiology 10/10/18 Blood Culture - Preliminary, Resulted NO GROWTH AFTER 1 DAY Review of Systems Constitutional: yes: other (CONFUSED) Physical Exam General Appearance: no apparent distress Skin: warm Respiratory: decreased breath sounds Heart: S1S2 Abdomen: soft, bowel sounds present Genitourinary: bladder flat Extremities: pulses present Assessment Assessment IMP NATHANIEL-IMPROVING UO AND CLEARANCE MET ACIDOSIS-RESOLVED MET ENCEPHALOPATHY SEPSIS ANEMIA AFIB RVR LIVER FAILURE WITH HEP C COAGULOPATHY HYPERKALEMIA-BETTER HYPONATREMIA-BETTER PLAN CONT HYDRATION GI EVALUATION ANTIBIOTICS PRESSORS NEEDED HOLD OFF HD TODAY SUJATHA VOSS MD October 12, 2018 11:50
--- NOTE | 2018-10-12 12:03 | PDOC2 ---
GI CONSULT Reason For Consult: Acute Liver Failure HPI: HPI: Willard Whitney is a 63 years old male patient with past medical history of hypertension, atrial fibrillation, chronic obstructive pulmonary disease and Hep C i( unknown Genotype) induced advanced liver disease. He was admitted to the hospital after he was found down for hours. There was a report that patient has been drinking alcohol lateley. Patient was sedated Precedex at time of exam and information was gathered through discussion with primary team and chart reviews. At presentation, patient was reported to be encephalopathic and combative. His labs at presentation were notable for metabolic acidosis with anion gap with hyponatremia (133), hyperkalemia (5.6), and elevated Cr (4.2). He had also evidence of microcytic anemia with Hgb 6.5 and leucocytosis 14.7 and coagulopathy with INR 4.2. Patient underwent emergent HD with improvement of the metabolic acidosis and electrolytes abnormalities. As per discussion with nursing staff, patient is now producing 150cc an hour . He has also few brown colored bowel movement with lactulose enema. FH: Family History: Other (Alzheimer's) Social History: Smoke: Quit ALCOHOL: occassional Drugs: None ROS: GEN: Denies fevers, chills, sweats HEENT: Denies blurred vision, sore throat CV: Denies chest pain RESP: Denies shortness of air, cough GI: Per HPI : Denies hematuria, dysuria ENDO: Denies weight changes NEURO: Denies confusion, dizziness MSK: Denies weakness, joint pain/swelling SKIN: Denies jaundice, pruritus Vitals: Vitals: Vital Signs Date Time Temp Pulse Resp B/P (MAP) Pulse Ox O2 Delivery O2 Flow Rate FiO2 10/12/18 10:00 80 9 135/83 (100) 94 Nasal Cannula 5.0 10/12/18 08:00 97.5 97.5 Labs: Labs: Laboratory Tests Test 10/11/18 19:30 10/12/18 00:05 10/12/18 05:00 White Blood Count 6.6 x10^3/uL (4.0-11.0) 7.9 x10^3/uL (4.0-11.0) 8.0 x10^3/uL (4.0-11.0) Red Blood Count 3.89 x10^6/uL (4.30-5.70) 4.03 x10^6/uL (4.30-5.70) 3.87 x10^6/uL (4.30-5.70) Hemoglobin 8.2 g/dL (13.0-17.5) 8.3 g/dL (13.0-17.5) 8.2 g/dL (13.0-17.5) Hematocrit 25.9 % (39.0-53.0) 27.0 % (39.0-53.0) 25.8 % (39.0-53.0) Mean Corpuscular Volume 66 fL (79-100) 67 fL (79-100) 67 fL (79-100) Mean Corpuscular Hemoglobin 21 pg (25-35) 21 pg (25-35) 21 pg (25-35) Mean Corpuscular Hemoglobin Concent 32 g/dL (31-37) 31 g/dL (31-37) 32 g/dL (31-37) Red Cell Distribution Width 28.1 % (11.5-14.5) 27.7 % (11.5-14.5) 27.3 % (11.5-14.5) Platelet Count 98 x10^3/uL (140-400) 96 x10^3/uL (140-400) 90 x10^3/uL (140-400) Neutrophils (%) (Auto) 85 % (31-73) 86 % (31-73) 86 % (31-73) Lymphocytes (%) (Auto) 11 % (24-48) 10 % (24-48) 10 % (24-48) Monocytes (%) (Auto) 3 % (0-9) 4 % (0-9) 4 % (0-9) Eosinophils (%) (Auto) 1 % (0-3) 0 % (0-3) 0 % (0-3) Basophils (%) (Auto) 0 % (0-3) 0 % (0-3) 0 % (0-3) Neutrophils # (Auto) 5.6 x10^3uL (1.8-7.7) 6.8 x10^3uL (1.8-7.7) 6.9 x10^3uL (1.8-7.7) Lymphocytes # (Auto) 0.7 x10^3/uL (1.0-4.8) 0.8 x10^3/uL (1.0-4.8) 0.8 x10^3/uL (1.0-4.8) Monocytes # (Auto) 0.2 x10^3/uL (0.0-1.1) 0.3 x10^3/uL (0.0-1.1) 0.3 x10^3/uL (0.0-1.1) Eosinophils # (Auto) 0.0 x10^3/uL (0.0-0.7) 0.0 x10^3/uL (0.0-0.7) 0.0 x10^3/uL (0.0-0.7) Basophils # (Auto) 0.0 x10^3/uL (0.0-0.2) 0.0 x10^3/uL (0.0-0.2) 0.0 x10^3/uL (0.0-0.2) Prothrombin Time 40.4 SEC (11.7-14.0) Prothromb Time International Ratio 4.2 (0.8-1.1) Sodium Level 137 mmol/L (136-145) Potassium Level 3.1 mmol/L (3.5-5.1) Chloride Level 98 mmol/L (98-107) Carbon Dioxide Level 32 mmol/L (21-32) Anion Gap 7 (6-14) Blood Urea Nitrogen 35 mg/dL (8-26) Creatinine 2.0 mg/dL (0.7-1.3) Estimated GFR (Cockcroft-Gault) 34.0 BUN/Creatinine Ratio 18 (6-20) Glucose Level 177 mg/dL (70-99) Calcium Level 7.7 mg/dL (8.5-10.1) Total Bilirubin 3.2 mg/dL (0.2-1.0) Aspartate Amino Transf (AST/SGOT) 3722 U/L (15-37) Alanine Aminotransferase (ALT/SGPT) 2141 U/L (16-63) Alkaline Phosphatase 106 U/L (46-116) Total Protein 5.2 g/dL (6.4-8.2) Albumin 2.4 g/dL (3.4-5.0) Albumin/Globulin Ratio 0.9 (1.0-1.7) Allergies: Coded Allergies: lisinopril (Verified Allergy, Severe, Swelling, 01/27/17) ANGIOEDEMA Medications: Current Medications Medications (Trade) Dose Ordered Sig/Debbie Route PRN Reason Start Time Stop Time Status Last Admin Dose Admin Piperacillin Sod/ Tazobactam Sod 2.25 gm/Sodium Chloride 50 ml @ 100 mls/hr Q8HRS IV 10/11/18 14:00 10/12/18 06:08 Lactulose (Lactulose) 200 gm TID ND 10/11/18 14:00 10/12/18 09:22 DC 10/11/18 20:55 Lidocaine/Sodium Bicarbonate (Buffered Lidocaine 1%) 6 ml 1X ONCE INJ 10/11/18 13:45 10/11/18 13:46 DC 10/11/18 13:42 Potassium Chloride/Water 50 ml @ 50 mls/hr 1X ONCE IV 10/12/18 09:00 10/12/18 09:59 DC 10/12/18 09:30 Amino Acids/ Glycerin/ Electrolytes 1,000 ml @ 60 mls/hr [id number] IV 10/12/18 10:00 10/12/18 10:00 Imaging: Imaging: [facility] [address] [place], [place] [id number] IMAGING REPORT Signed PATIENT: WILLARD WHITNEY ACCOUNT: [id number] : 1955 LOCATION: [address] [place] [address] AGE: 63 SEX: M EXAM STATUS: ADM IN ORD. PHYSICIAN: LILLY GAO MD REASON: rectal bleeding, severe septic shock PROCEDURE: CT ABDOMEN PELVIS WO CONTRAST PQRS Compliance statement: One or more of the following individualized dose reduction techniques were utilized for this examination: 1. Automated exposure control. 2. Adjustment of the mA and/or kV according to patient size. 3. Use of iterative reconstruction technique. Indication:rectal bleed; severe septic shock TECHNIQUE: CT abdomen and pelvis without IV contrast with multiplanar reformats. COMPARISON: None FINDINGS: Limited evaluation of solid abdominal and pelvic organs due to lack of IV contrast. Heart is moderately enlarged in size. Small amount of right lesion. Consolidation is seen in the right lung base. Noncontrast appearance of the liver, spleen, pancreas, adrenals within normal limits. Gallstones noted. No pericholecystic fluid. No nephrolithiasis or hydronephrosis. Couple of low attenuating lesions in the right kidney, the largest measuring 6.2 x 4.7 cm. No enlarged retroperitoneal or pelvic adenopathy. Scattered atherosclerotic plaque in the aorta. No free pelvic fluid or ascites. No bowel obstruction. Significant circumferential wall thickening is seen of the cecum measuring approximately 3 cm. Circumferential wall thickening is seen of the rectum measuring approximately 1.7 cm. Left groin catheter is seen with soft tissue emphysema in the inguinal region. No pneumoperitoneum or pneumatosis intestinalis. Urinary bladder is decompressed with Rodriguez catheter. Prostate is nonenlarged. Most likely a chronic fracture is seen of the left 10th rib. Mildly displaced fractures of the right transverse processes of the L2, L3, L4 vertebral bodies. Small sliding hiatal hernia. IMPRESSION: Limited evaluation of solid abdominal and pelvic organs due to lack of IV contrast. 1. Circumferential wall thickening of the cecum and rectum suggests focal colitis. Underlying mass not ruled out. Colonoscopy recommended. No bowel obstruction. 2. Consolidation in the right lower lobe may be secondary to passive atelectasis from the adjacent small bowel pleural effusion or pneumonia. 3. Bilateral renal lesions most likely simple cysts. Nonemergent ultrasound of the kidneys recommended. 4. Fractures of the right transverse processes of the L2-L4 vertebral bodies, age indeterminate. Clinically correlate with focal tenderness. 5. Left groin emphysema may be secondary to placement of the intravenous catheter. Clinically correlate with signs of infection. 5. Cholelithiasis. Electronically signed by: Josué Glover DO (10/11/2018 12:06 AM) [facility] DICTATED and SIGNED BY: JOSUÉ GLOVER DO DATE: 10/11/18 0006 PE: GEN: Sedated male patient. HEENT: Icteric sclera. LUNGS: CTAB HEART: RRR, no murmurs ABD: NABS, S/ND/NT, no masses. No SD or FT. Rectal exam no evidence of melena or hematochezia. EXTREMITY: No edema NEURO/PSYCH: A & O 3 A/P: A/P: A 63 years old male patient with past medical history of hypertension, atrial fibrillation, chronic obstructive pulmonary disease and Hep C ( unknown Genotype) induced advanced liver disease. He was admitted to the hospital after he was found down for hours. Patient was reported to be encephalopathic and combative. His labs at presentation were notable for metabolic acidosis with anion gap with hyponatremia (133), hyperkalemia (5.6), and elevated Cr (4.2). He had also evidence of microcytic anemia with Hgb 6.5 and leucocytosis 14.7 and coagulopathy with INR 4.2. Patient underwent emergent HD with improvement of the metabolic acidosis and electrolytes abnormalities Overall, patient is critically sick with high MELD score (40). * Decompensated Advanced Liver Disease: In setting of underlying chronic Hep C infection ( unknown Genotype). Concern patient might have also been drinking with elevated aminotransferases in thousands with 2:1 ratio of AST/ALT. Unable to do EtG to confirm recent alcohol ingestion. Needs to send U/A and blood cultures to rule out underlying sepsis. * Chronic Hep C infection: Unknown etiology.He also needs to follow up with or me to manage underlying Hep C. * Hepatic Encephalopathy: Agree with lactulose enema. If he has no improvement this afternoon, I would recommend to start Golytely via NG tube with goal of 500 cc stool a day..Please initiate sepsis bundle and send U/A and blood cultures, if not sent already to rule out underlying infectious process. Patient has no clinically significant ascites on exam . * Esophageal Varices Screening: Patient has no overt bleeding at this time with unremarkable digital exam with no melena or hematochezia. Follow up with regarding timing of EGD. * Fluid Management; No evidence of third spacing at this time. Low sodium diets ( <2 gram a day). * Microcytic Anemia: No overt bleeding. Follow up with regarding the timing. * Nutrition: May start enteral feeding via NG tube if patient continues to have altered mental status GI avilable for any Q's. Thank you for allowing me to participate in the care of this interesting patient.. ANGELICA IBRAHIM MD October 12, 2018 12:02
--- NOTE | 2018-10-12 14:34 | PDOC ---
PROGRESS NOTES Assessment Problems Medical Problems: (1) Lactic acidosis Status: Acute (2) Liver failure Status: Acute (3) Pneumonia Status: Acute (4) Renal failure Status: Acute Impression: Metabolic encephalopathy in patient with respiratory failure, sepsis, acute liver failure with transaminitis and coagulopathy, gastrointestinal bleed, thrombocytopenia, pneumonia, metabolic acidosis secondary to lactic acidosis, hyperkalemia. Note he is now on Precedex Plan Continue current supportive medical care. Subjective None Objective Vital Signs Date Time Temp Pulse Resp B/P (MAP) Pulse Ox O2 Delivery O2 Flow Rate FiO2 10/12/18 12:00 Nasal Cannula 5.0 10/12/18 12:00 97.7 72 10 111/78 (89) 96 97.7 Intake and Output 10/12/18 07:00 Intake Total 3771 ml Output Total 3130 ml Balance 641 ml Intake IV Total 1929 ml Other 1842 ml Output Urine Total 3130 ml # Bowel Movements 3 PHYSICAL EXAM Eyes closed, no response to voice, does not follow commands or vocalize PERRL. EOMI. CN: no focal findings. Muscle tone: normal. Muscle strength: Right movement of all 4 extremities, asterixis DTR: 0+ Plantar reflex: flexor Gait: not examined in bed. Sensory exam: not cooperative. Cerebellar: Not cooperative Review of Relevant I have reviewed the following items daysi (where applicable) has been applied. Labs Laboratory Tests Test 10/10/18 21:07 10/10/18 21:45 10/10/18 21:57 10/10/18 22:30 Urine Collection Type Unknown Urine Color [place] Urine Clarity Clear Urine pH 5.5 Urine Specific [place] 1.020 Urine Protein 100 mg/dL (NEG-TRACE) Urine Glucose (UA) Negative mg/dL (NEG) Urine Ketones (Stick) Trace mg/dL (NEG) Urine Blood Small (NEG) Urine Nitrite Negative (NEG) Urine Bilirubin Small (NEG) Urine Urobilinogen Dipstick 1.0 mg/dL (0.2 mg/dL) Urine Leukocyte Esterase Negative (NEG) Urine RBC 3-5 /HPF (0-2) Urine WBC Occ /HPF (0-4) Urine Squamous Epithelial Cells Occ /LPF Urine Bacteria 0 /HPF (0-FEW) Urine Hyaline Casts Many /HPF Urine Mucus Marked /LPF Urine Opiates Screen Neg (NEG) Urine Methadone Screen Neg (NEG) Urine Barbiturates Neg (NEG) Urine Phencyclidine Screen Neg (NEG) Urine Amphetamine/Methamphetamine Neg (NEG) Urine Benzodiazepines Screen Neg (NEG) Urine Cocaine Screen Neg (NEG) Urine Cannabinoids Screen Neg (NEG) Urine Ethyl Alcohol Neg (NEG) Glucose (Fingerstick) 137 mg/dL (70-99) Stool Occult Blood Positive (NEG) O2 Saturation 98 % (92-99) Arterial Blood pH 7.18 (7.35-7.45) Arterial Blood pCO2 at Patient Temp < 15 mmHg (35-46) Arterial Blood pO2 at Patient Temp 134 mmHg (65-108) Arterial Blood HCO3 5 mmol/L (21-28) Arterial Blood Base Excess -21 mmol/L (-3-3) White Blood Count 14.7 x10^3/uL (4.0-11.0) Red Blood Count 3.26 x10^6/uL (4.30-5.70) Hemoglobin 6.5 g/dL (13.0-17.5) Hematocrit 23.4 % (39.0-53.0) Mean Corpuscular Volume 72 fL (79-100) Mean Corpuscular Hemoglobin 20 pg (25-35) Mean Corpuscular Hemoglobin Concent 28 g/dL (31-37) Red Cell Distribution Width 27.3 % (11.5-14.5) Platelet Count 141 x10^3/uL (140-400) Neutrophils (%) (Auto) 81 % (31-73) Lymphocytes (%) (Auto) 7 % (24-48) Monocytes (%) (Auto) 11 % (0-9) Eosinophils (%) (Auto) 1 % (0-3) Basophils (%) (Auto) 0 % (0-3) Neutrophils # (Auto) 11.9 x10^3uL (1.8-7.7) Lymphocytes # (Auto) 1.0 x10^3/uL (1.0-4.8) Monocytes # (Auto) 1.5 x10^3/uL (0.0-1.1) Eosinophils # (Auto) 0.1 x10^3/uL (0.0-0.7) Basophils # (Auto) 0.0 x10^3/uL (0.0-0.2) Segmented Neutrophils % 80 % (35-66) Band Neutrophils % 9 % (0-9) Lymphocytes % 7 % (24-48) Monocytes % 4 % (0-10) Nucleated Red Blood Cells 6 Platelet Estimate Adequate (ADEQUATE) Polychromasia Slight Hypochromasia Mod Anisocytosis Marked Microcytosis Mod Ovalocytes Few Nicol Cells Many Schistocytes Few Prothrombin Time 52.5 SEC (11.7-14.0) Prothromb Time International Ratio 5.8 (0.8-1.1) Sodium Level 136 mmol/L (136-145) Potassium Level 5.1 mmol/L (3.5-5.1) Chloride Level 101 mmol/L (98-107) Carbon Dioxide Level 10 mmol/L (21-32) Anion Gap 25 (6-14) Blood Urea Nitrogen 49 mg/dL (8-26) Creatinine 3.6 mg/dL (0.7-1.3) Estimated GFR (Cockcroft-Gault) 17.3 BUN/Creatinine Ratio 14 (6-20) Glucose Level 129 mg/dL (70-99) Lactic Acid Level 14.9 mmol/L (0.4-2.0) Calcium Level 7.7 mg/dL (8.5-10.1) Magnesium Level 2.1 mg/dL (1.8-2.4) Total Bilirubin 2.9 mg/dL (0.2-1.0) Aspartate Amino Transf (AST/SGOT) 4514 U/L (15-37) Alanine Aminotransferase (ALT/SGPT) 1550 U/L (16-63) Alkaline Phosphatase 104 U/L (46-116) Creatine Kinase 210 U/L (39-308) Troponin I Quantitative 0.073 ng/mL (0.000-0.055) QV-Lhb-C-Type Natriuretic Peptide 3776 pg/mL (0-124) Total Protein 5.8 g/dL (6.4-8.2) Albumin 2.7 g/dL (3.4-5.0) Albumin/Globulin Ratio 0.9 (1.0-1.7) Lipase 408 U/L (73-393) Procalcitonin 0.88 ng/mL (0.00-0.10) Acetaminophen Level 2.7 mcg/ml (10-30) Acetaminophen Last Dose Date Unk Acetaminophen Last Dose Time Unk Ethyl Alcohol Level < 10 mg/dL (0-10) Test 10/10/18 22:56 10/10/18 23:41 10/11/18 00:45 10/11/18 02:00 Glucose (Fingerstick) 111 mg/dL (70-99) Ammonia 28 mcmol/L (11-34) O2 Saturation 97 % (92-99) Arterial Blood pH 7.19 (7.35-7.45) Arterial Blood pCO2 at Patient Temp 19 mmHg (35-46) Arterial Blood pO2 at Patient Temp 125 mmHg (65-108) Arterial Blood HCO3 7 mmol/L (21-28) Arterial Blood Base Excess -19 mmol/L (-3-3) FiO2 40% Lactic Acid Level 13.3 mmol/L (0.4-2.0) Test 10/11/18 05:40 10/11/18 08:00 10/11/18 08:10 10/11/18 11:25 White Blood Count 12.0 x10^3/uL (4.0-11.0) 9.7 x10^3/uL (4.0-11.0) Red Blood Count 4.01 x10^6/uL (4.30-5.70) 3.96 x10^6/uL (4.30-5.70) Hemoglobin 8.4 g/dL (13.0-17.5) 8.2 g/dL (13.0-17.5) Hematocrit 28.4 % (39.0-53.0) 26.8 % (39.0-53.0) Mean Corpuscular Volume 71 fL (79-100) 68 fL (79-100) Mean Corpuscular Hemoglobin 21 pg (25-35) 21 pg (25-35) Mean Corpuscular Hemoglobin Concent 30 g/dL (31-37) 31 g/dL (31-37) Red Cell Distribution Width 27.6 % (11.5-14.5) 27.2 % (11.5-14.5) Platelet Count 146 x10^3/uL (140-400) 123 x10^3/uL (140-400) Neutrophils (%) (Auto) 82 % (31-73) 87 % (31-73) Lymphocytes (%) (Auto) 8 % (24-48) 8 % (24-48) Monocytes (%) (Auto) 8 % (0-9) 5 % (0-9) Eosinophils (%) (Auto) 1 % (0-3) 0 % (0-3) Basophils (%) (Auto) 0 % (0-3) 0 % (0-3) Neutrophils # (Auto) 9.9 x10^3uL (1.8-7.7) 8.5 x10^3uL (1.8-7.7) Lymphocytes # (Auto) 1.0 x10^3/uL (1.0-4.8) 0.7 x10^3/uL (1.0-4.8) Monocytes # (Auto) 1.0 x10^3/uL (0.0-1.1) 0.5 x10^3/uL (0.0-1.1) Eosinophils # (Auto) 0.1 x10^3/uL (0.0-0.7) 0.0 x10^3/uL (0.0-0.7) Basophils # (Auto) 0.0 x10^3/uL (0.0-0.2) 0.0 x10^3/uL (0.0-0.2) Sodium Level 134 mmol/L (136-145) Potassium Level 5.6 mmol/L (3.5-5.1) Chloride Level 96 mmol/L (98-107) Carbon Dioxide Level 15 mmol/L (21-32) Anion Gap 23 (6-14) Blood Urea Nitrogen 60 mg/dL (8-26) Creatinine 4.1 mg/dL (0.7-1.3) Estimated GFR (Cockcroft-Gault) 14.9 BUN/Creatinine Ratio 15 (6-20) Glucose Level 114 mg/dL (70-99) Calcium Level 8.1 mg/dL (8.5-10.1) Total Bilirubin 3.6 mg/dL (0.2-1.0) Aspartate Amino Transf (AST/SGOT) 7583 U/L (15-37) Alanine Aminotransferase (ALT/SGPT) 2622 U/L (16-63) Alkaline Phosphatase 124 U/L (46-116) Total Protein 6.6 g/dL (6.4-8.2) Albumin 3.3 g/dL (3.4-5.0) Albumin/Globulin Ratio 1.0 (1.0-1.7) Salicylates Level < 2.8 mg/dL (2.8-20.0) Salicylate Last Dose Date 10/10/18 Salicylate Last Dose Time 1130 Prothrombin Time 48.2 SEC (11.7-14.0) Prothromb Time International Ratio 5.2 (0.8-1.1) Activated Partial Thromboplast Time 41 SEC (24-38) Lactic Acid Level 4.5 mmol/L (0.4-2.0) Test 10/11/18 19:30 10/12/18 00:05 10/12/18 05:00 White Blood Count 6.6 x10^3/uL (4.0-11.0) 7.9 x10^3/uL (4.0-11.0) 8.0 x10^3/uL (4.0-11.0) Red Blood Count 3.89 x10^6/uL (4.30-5.70) 4.03 x10^6/uL (4.30-5.70) 3.87 x10^6/uL (4.30-5.70) Hemoglobin 8.2 g/dL (13.0-17.5) 8.3 g/dL (13.0-17.5) 8.2 g/dL (13.0-17.5) Hematocrit 25.9 % (39.0-53.0) 27.0 % (39.0-53.0) 25.8 % (39.0-53.0) Mean Corpuscular Volume 66 fL (79-100) 67 fL (79-100) 67 fL (79-100) Mean Corpuscular Hemoglobin 21 pg (25-35) 21 pg (25-35) 21 pg (25-35) Mean Corpuscular Hemoglobin Concent 32 g/dL (31-37) 31 g/dL (31-37) 32 g/dL (31-37) Red Cell Distribution Width 28.1 % (11.5-14.5) 27.7 % (11.5-14.5) 27.3 % (11.5-14.5) Platelet Count 98 x10^3/uL (140-400) 96 x10^3/uL (140-400) 90 x10^3/uL (140-400) Neutrophils (%) (Auto) 85 % (31-73) 86 % (31-73) 86 % (31-73) Lymphocytes (%) (Auto) 11 % (24-48) 10 % (24-48) 10 % (24-48) Monocytes (%) (Auto) 3 % (0-9) 4 % (0-9) 4 % (0-9) Eosinophils (%) (Auto) 1 % (0-3) 0 % (0-3) 0 % (0-3) Basophils (%) (Auto) 0 % (0-3) 0 % (0-3) 0 % (0-3) Neutrophils # (Auto) 5.6 x10^3uL (1.8-7.7) 6.8 x10^3uL (1.8-7.7) 6.9 x10^3uL (1.8-7.7) Lymphocytes # (Auto) 0.7 x10^3/uL (1.0-4.8) 0.8 x10^3/uL (1.0-4.8) 0.8 x10^3/uL (1.0-4.8) Monocytes # (Auto) 0.2 x10^3/uL (0.0-1.1) 0.3 x10^3/uL (0.0-1.1) 0.3 x10^3/uL (0.0-1.1) Eosinophils # (Auto) 0.0 x10^3/uL (0.0-0.7) 0.0 x10^3/uL (0.0-0.7) 0.0 x10^3/uL (0.0-0.7) Basophils # (Auto) 0.0 x10^3/uL (0.0-0.2) 0.0 x10^3/uL (0.0-0.2) 0.0 x10^3/uL (0.0-0.2) Prothrombin Time 40.4 SEC (11.7-14.0) Prothromb Time International Ratio 4.2 (0.8-1.1) Sodium Level 137 mmol/L (136-145) Potassium Level 3.1 mmol/L (3.5-5.1) Chloride Level 98 mmol/L (98-107) Carbon Dioxide Level 32 mmol/L (21-32) Anion Gap 7 (6-14) Blood Urea Nitrogen 35 mg/dL (8-26) Creatinine 2.0 mg/dL (0.7-1.3) Estimated GFR (Cockcroft-Gault) 34.0 BUN/Creatinine Ratio 18 (6-20) Glucose Level 177 mg/dL (70-99) Calcium Level 7.7 mg/dL (8.5-10.1) Total Bilirubin 3.2 mg/dL (0.2-1.0) Aspartate Amino Transf (AST/SGOT) 3722 U/L (15-37) Alanine Aminotransferase (ALT/SGPT) 2141 U/L (16-63) Alkaline Phosphatase 106 U/L (46-116) Total Protein 5.2 g/dL (6.4-8.2) Albumin 2.4 g/dL (3.4-5.0) Albumin/Globulin Ratio 0.9 (1.0-1.7) Laboratory Tests Test 10/11/18 19:30 10/12/18 00:05 10/12/18 05:00 White Blood Count 6.6 x10^3/uL (4.0-11.0) 7.9 x10^3/uL (4.0-11.0) 8.0 x10^3/uL (4.0-11.0) Red Blood Count 3.89 x10^6/uL (4.30-5.70) 4.03 x10^6/uL (4.30-5.70) 3.87 x10^6/uL (4.30-5.70) Hemoglobin 8.2 g/dL (13.0-17.5) 8.3 g/dL (13.0-17.5) 8.2 g/dL (13.0-17.5) Hematocrit 25.9 % (39.0-53.0) 27.0 % (39.0-53.0) 25.8 % (39.0-53.0) Mean Corpuscular Volume 66 fL (79-100) 67 fL (79-100) 67 fL (79-100) Mean Corpuscular Hemoglobin 21 pg (25-35) 21 pg (25-35) 21 pg (25-35) Mean Corpuscular Hemoglobin Concent 32 g/dL (31-37) 31 g/dL (31-37) 32 g/dL (31-37) Red Cell Distribution Width 28.1 % (11.5-14.5) 27.7 % (11.5-14.5) 27.3 % (11.5-14.5) Platelet Count 98 x10^3/uL (140-400) 96 x10^3/uL (140-400) 90 x10^3/uL (140-400) Neutrophils (%) (Auto) 85 % (31-73) 86 % (31-73) 86 % (31-73) Lymphocytes (%) (Auto) 11 % (24-48) 10 % (24-48) 10 % (24-48) Monocytes (%) (Auto) 3 % (0-9) 4 % (0-9) 4 % (0-9) Eosinophils (%) (Auto) 1 % (0-3) 0 % (0-3) 0 % (0-3) Basophils (%) (Auto) 0 % (0-3) 0 % (0-3) 0 % (0-3) Neutrophils # (Auto) 5.6 x10^3uL (1.8-7.7) 6.8 x10^3uL (1.8-7.7) 6.9 x10^3uL (1.8-7.7) Lymphocytes # (Auto) 0.7 x10^3/uL (1.0-4.8) 0.8 x10^3/uL (1.0-4.8) 0.8 x10^3/uL (1.0-4.8) Monocytes # (Auto) 0.2 x10^3/uL (0.0-1.1) 0.3 x10^3/uL (0.0-1.1) 0.3 x10^3/uL (0.0-1.1) Eosinophils # (Auto) 0.0 x10^3/uL (0.0-0.7) 0.0 x10^3/uL (0.0-0.7) 0.0 x10^3/uL (0.0-0.7) Basophils # (Auto) 0.0 x10^3/uL (0.0-0.2) 0.0 x10^3/uL (0.0-0.2) 0.0 x10^3/uL (0.0-0.2) Prothrombin Time 40.4 SEC (11.7-14.0) Prothromb Time International Ratio 4.2 (0.8-1.1) Sodium Level 137 mmol/L (136-145) Potassium Level 3.1 mmol/L (3.5-5.1) Chloride Level 98 mmol/L (98-107) Carbon Dioxide Level 32 mmol/L (21-32) Anion Gap 7 (6-14) Blood Urea Nitrogen 35 mg/dL (8-26) Creatinine 2.0 mg/dL (0.7-1.3) Estimated GFR (Cockcroft-Gault) 34.0 BUN/Creatinine Ratio 18 (6-20) Glucose Level 177 mg/dL (70-99) Calcium Level 7.7 mg/dL (8.5-10.1) Total Bilirubin 3.2 mg/dL (0.2-1.0) Aspartate Amino Transf (AST/SGOT) 3722 U/L (15-37) Alanine Aminotransferase (ALT/SGPT) 2141 U/L (16-63) Alkaline Phosphatase 106 U/L (46-116) Total Protein 5.2 g/dL (6.4-8.2) Albumin 2.4 g/dL (3.4-5.0) Albumin/Globulin Ratio 0.9 (1.0-1.7) Microbiology 10/10/18 Blood Culture - Preliminary, Resulted NO GROWTH AFTER 1 DAY Medications Current Medications Sodium Chloride 1,000 ml @ 1,000 mls/hr 1X ONCE IV Last administered on 10/10/18at 22:43; Start 10/10/18 at 22:00; Stop 10/10/18 at 22:59; Status DC Sodium Chloride 1,000 ml @ 1,000 mls/hr 1X ONCE IV Last administered on 10/10/18at 22:42; Start 10/10/18 at 22:00; Stop 10/10/18 at 22:59; Status DC Piperacillin Sod/ Tazobactam Sod (Zosyn Per Pharmacy) 1 each PRN DAILY PRN MC SEE COMMENTS; Start 10/10/18 at 22:00; Stop 10/10/18 at 22:33; Status DC Piperacillin Sod/ Tazobactam Sod 3.375 gm/Sodium Chloride 50 ml @ 100 mls/hr 1X ONCE IV Last administered on 10/10/18at 22:44; Start 10/10/18 at 22:15; Stop 10/10/18 at 22:44; Status DC Sodium Bicarbonate (Sodium Bicarb Adult 8.4% Syr) 50 meq 1X ONCE IV Last administered on 10/10/18at 22:43; Start 10/10/18 at 22:30; Stop 10/10/18 at 22:31; Status DC Calcium Gluconate (Calcium Gluconate) 1,000 mg 1X ONCE IVP Last administered on 10/10/18at 22:43; Start 10/10/18 at 22:30; Stop 10/10/18 at 22:31; Status DC Piperacillin Sod/ Tazobactam Sod (Zosyn Per Pharmacy) 1 each PRN DAILY PRN MC SEE COMMENTS; Start 10/10/18 at 22:45 Pantoprazole Sodium 80 mg/ Sodium Chloride 100 ml @ 10 mls/hr Q10H IV Last administered on 10/12/18at 08:31; Start 10/10/18 at 23:30 Phytonadione 10 mg/Dextrose 51 ml @ 102 mls/hr 1X ONCE IV Last administered on 10/10/18at 23:46; Start 10/10/18 at 23:30; Stop 10/10/18 at 23:59; Status DC Octreotide Acetate 500 mcg/ Sodium Chloride 101 ml @ 0 mls/hr CONT PRN IV SEE I/O RECORD Last administered on 10/12/18at 08:32; Start 10/10/18 at 23:45 Sodium Bicarbonate 50 meq/Dextrose 1,050 ml @ 125 mls/hr 1X ONCE IV Last administered on 10/11/18at 00:01; Start 10/10/18 at 23:55; Stop 10/11/18 at 08:18; Status DC Piperacillin Sod/ Tazobactam Sod 2.25 gm/Sodium Chloride 50 ml @ 100 mls/hr Q6HRS IV Last administered on 10/11/18at 05:30; Start 10/11/18 at 06:00; Stop 10/11/18 at 08:25; Status DC Meropenem 500 mg/ Sodium Chloride 50 ml @ 100 mls/hr Q8HRS IV ; Start 10/11/18 at 14:00; Stop 10/11/18 at 14:00; Status DC Ondansetron HCl (Zofran) 4 mg 1X ONCE IV Last administered on 10/11/18at 06:41; Start 10/11/18 at 06:45; Stop 10/11/18 at 06:46; Status DC Thiamine HCl 100 mg/Dextrose 51 ml @ 102 mls/hr 1X ONCE IV Last administered on 10/11/18at 07:40; Start 10/11/18 at 07:00; Stop 10/11/18 at 07:29; Status DC Folic Acid (Folic Acid) 1 mg DAILY PO ; Start 10/11/18 at 09:00; Stop 10/12/18 at 09:03; Status DC Levofloxacin/ Dextrose 50 ml @ 50 mls/hr 1X ONCE IV Last administered on 10/11/18at 07:42; Start 10/11/18 at 07:00; Stop 10/11/18 at 07:59; Status DC Albuterol Sulfate (Ventolin Neb Soln) 2.5 mg PRN Q4HRS PRN NEB SHORTNESS OF BREATH; Start 10/11/18 at 07:15 Lorazepam (Ativan) 1 mg 1X ONCE IV Last administered on 10/11/18at 07:37; Start 10/11/18 at 07:30; Stop 10/11/18 at 09:35; Status DC Lorazepam (Ativan) 1 mg PRN Q3HRS PRN IV ANXIETY / AGITATION; Start 10/11/18 at 08:00; Stop 10/11/18 at 09:35; Status DC Piperacillin Sod/ Tazobactam Sod 2.25 gm/Sodium Chloride 50 ml @ 100 mls/hr Q8HRS IV Last administered on 10/12/18at 06:08; Start 10/11/18 at 14:00 Ondansetron HCl (Zofran) 4 mg PRN Q6HRS PRN IV NAUSEA/VOMITING; Start 10/11/18 at 08:45 Lactulose (Lactulose) 30 gm TID PO ; Start 10/11/18 at 09:30; Stop 10/11/18 at 11:25; Status DC Sodium Bicarbonate 50 meq/Dextrose 1,050 ml @ 60 mls/hr [id number] IV Last administered on 10/12/18at 02:21; Start 10/11/18 at 10:00; Stop 10/12/18 at 10:58; Status DC Dexmedetomidine HCl 200 mcg/ Sodium Chloride 50 ml @ 0 mls/hr CONT PRN IV PER PROTOCOL Last administered on 10/12/18at 13:00; Start 10/11/18 at 09:45 Sodium Chloride 500 ml @ 500 mls/hr 1X PRN PRN IV SEE COMMENTS; Start 10/11/18 at 09:45 Atropine Sulfate (ATROPINE 0.5mg SYRINGE) 0.5 mg PRN Q5MIN PRN IV SEE COMMENTS; Start 10/11/18 at 09:45 Sodium Bicarbonate (Sodium Bicarb Adult 8.4% Syr) 50 meq STK-MED ONCE .ROUTE ; Start 10/11/18 at 09:42; Stop 10/11/18 at 09:43; Status DC Sodium Bicarbonate (Sodium Bicarb Adult 8.4% Syr) 100 meq 1X ONCE IV Last administered on 10/11/18at 10:00; Start 10/11/18 at 10:00; Stop 10/11/18 at 10:01; Status DC Lactulose (Lactulose) 30 gm TID AR ; Start 10/11/18 at 12:00; Stop 10/11/18 at 13:06; Status DC Lidocaine/Sodium Bicarbonate (Buffered Lidocaine 1%) 3 ml STK-MED ONCE .ROUTE ; Start 10/11/18 at 12:34; Stop 10/11/18 at 12:35; Status DC Heparin Sodium (Porcine) (Heparin Sodium) 10,000 unit STK-MED ONCE .ROUTE ; Start 10/11/18 at 12:34; Stop 10/11/18 at 12:35; Status DC Lactulose (Lactulose) 200 gm TID AR Last administered on 10/11/18at 20:55; Start 10/11/18 at 14:00; Stop 10/12/18 at 09:22; Status DC Sodium Chloride 1,000 ml @ 1,000 mls/hr Q1H PRN IV hypotension; Start 10/11/18 at 13:06; Stop 10/11/18 at 19:05; Status DC Albumin Human 200 ml @ 200 mls/hr 1X PRN PRN IV Hypotension; Start 10/11/18 at 13:15; Stop 10/11/18 at 19:14; Status DC Sodium Chloride (Normal Saline Flush) 10 ml 1X PRN PRN IV AP catheter pack; Start 10/11/18 at 13:15; Stop 10/12/18 at 13:14; Status DC Sodium Chloride (Normal Saline Flush) 10 ml 1X PRN PRN IV HAT LINING PASTER catheter pack; Start 10/11/18 at 13:15; Stop 10/12/18 at 13:14; Status DC Sodium Chloride 1,000 ml @ 400 mls/hr Q2H30M PRN IV PATENCY; Start 10/11/18 at 13:06; Stop 10/12/18 at 01:05; Status DC Info (PHARMACY MONITORING -- do not chart) 1 each PRN DAILY PRN MC SEE COMMENTS; Start 10/11/18 at 13:15; Status UNV Info (PHARMACY MONITORING -- do not chart) 1 each PRN DAILY PRN MC SEE COMMENTS; Start 10/11/18 at 13:15 Lidocaine/Sodium Bicarbonate (Buffered Lidocaine 1%) 6 ml 1X ONCE INJ Last administered on 10/11/18at 13:42; Start 10/11/18 at 13:45; Stop 10/11/18 at 13:46; Status DC Potassium Chloride/Water 50 ml @ 50 mls/hr 1X ONCE IV Last administered on 10/12/18at 09:30; Start 10/12/18 at 09:00; Stop 10/12/18 at 09:59; Status DC Lactulose (Lactulose) 200 gm PRN TID PRN AR CONFUSION Last administered on 10/12/18at 11:37; Start 10/12/18 at 09:30 Amino Acids/ Glycerin/ Electrolytes 1,000 ml @ 60 mls/hr [id number] IV Last administered on 10/12/18at 10:00; Start 10/12/18 at 10:00 Amino Acids/ Glycerin/ Electrolytes 1,000 ml @ As Directed STK-MED ONCE IV ; Start 10/12/18 at 09:58; Stop 10/12/18 at 09:59; Status DC Active Scripts Active Lactulose 20 Gm/30 Ml Solution 20 Gm PO PRN TID PRN 30 Days Klor-Con M20 (Potassium Chloride) 20 Meq Tab.er.prt 40 Meq PO DAILY 30 Days [Pantoprazole] 40 MG Tablet.dr 40 Mg PO DAILYAC 30 Days Hydroxyzine Pamoate 25 Mg Capsule 25 Mg PO PRN Q8HRS PRN 30 Days Aspirin Ec (Aspirin) 81 Mg Tablet.dr 81 Mg PO DAILYWBKFT 30 Days [Diltiazem Hcl] 240 MG Cap.er.24h 240 Mg PO DAILY 30 Days Metoprolol Tartrate 25 Mg Tablet 25 Mg PO BID 30 Days Vitamin B-1 (Thiamine Mononitrate) 100 Mg Tablet 100 Mg PO DAILY Hydrocodone-Apap 7.5-325 (Hydrocodone Bit/Acetaminophen) 1 Each Tablet 1 Tab PO PRN Q3HRS PRN Folic Acid 1 Mg Tablet 1 Mg PO DAILY Reported Tums (Calcium Carbonate) 300 Mg Tab.chew 300 Mg PO TIDAC PRN Cyclobenzaprine Hcl 10 Mg Tablet 1 Tab PO QHS Gabapentin (Gabapentin) 300 Mg Capsule 300 Mg PO TID Vitals/I & O Vital Sign - Last 24 Hours 10/11/18 10/11/18 10/11/18 10/11/18 15:00 16:00 16:00 17:00 Temp 98.4 98.4 Pulse 80 84 87 Resp 16 14 14 B/P (MAP) 99/64 (76) 109/66 (80) 115/56 (75) Pulse Ox 99 100 100 O2 Delivery Nasal Cannula Nasal Cannula Nasal Cannula Nasal Cannula O2 Flow Rate 2.0 2.0 2.0 2.0 10/11/18 10/11/18 10/11/18 10/11/18 18:00 19:00 20:00 20:00 Temp 98.6 98.6 Pulse 102 82 104 Resp 13 12 14 B/P (MAP) 103/58 (73) 95/62 (73) 117/63 (81) Pulse Ox 98 95 95 O2 Delivery Nasal Cannula Nasal Cannula Nasal Cannula Nasal Cannula O2 Flow Rate 2.0 2.0 2.0 2.0 10/11/18 10/11/18 10/11/18 10/12/18 21:00 22:00 23:00 00:00 Pulse 108 96 91 Resp 13 12 10 B/P (MAP) 118/72 (87) 103/67 (79) 109/67 (81) Pulse Ox 99 99 97 O2 Delivery Nasal Cannula Nasal Cannula Nasal Cannula Nasal Cannula O2 Flow Rate 2.0 2.0 2.0 2.0 10/12/18 10/12/18 10/12/18 10/12/18 00:00 01:00 02:00 03:00 Temp 98.1 98.1 Pulse 88 89 79 89 Resp 11 19 10 10 B/P (MAP) 99/77 (84) 123/72 (89) 122/74 (90) 119/79 (92) Pulse Ox 98 98 98 98 O2 Delivery Nasal Cannula Nasal Cannula Nasal Cannula Nasal Cannula O2 Flow Rate 2.0 2.0 2.0 2.0 10/12/18 10/12/18 10/12/18 10/12/18 03:45 04:00 05:00 06:00 Temp 97.7 97.7 Pulse 94 83 98 Resp 10 10 12 B/P (MAP) 103/72 (82) 117/75 (89) 123/83 (96) Pulse Ox 97 95 93 O2 Delivery Nasal Cannula Nasal Cannula Nasal Cannula Nasal Cannula O2 Flow Rate 2.0 2.0 2.0 2.0 10/12/18 10/12/18 10/12/18 10/12/18 07:00 08:00 08:00 09:00 Temp 97.5 97.5 Pulse 83 83 80 Resp 10 10 10 B/P (MAP) 106/61 (76) 119/79 (92) 123/74 (90) Pulse Ox 93 94 95 O2 Delivery Nasal Cannula Nasal Cannula Nasal Cannula Nasal Cannula O2 Flow Rate 2.0 2.0 2.0 2.0 10/12/18 10/12/18 10/12/18 10/12/18 10:00 11:00 12:00 12:00 Temp 97.7 97.7 Pulse 80 77 72 Resp 9 10 10 B/P (MAP) 135/83 (100) 106/87 (93) 111/78 (89) Pulse Ox 94 95 96 O2 Delivery Nasal Cannula Nasal Cannula Nasal Cannula Nasal Cannula O2 Flow Rate 5.0 5.0 5.0 5.0 Intake and Output 10/11/18 10/11/18 10/12/18 15:00 23:00 07:00 Intake Total 1892 ml 1879 ml Output Total 735 ml 1100 ml 1295 ml Balance -735 ml 792 ml 584 ml JESU MORENO MD October 12, 2018 14:34
--- NOTE | 2018-10-12 15:22 | RAD ---
EXAM: Juarez scale and color Doppler abdomen sonogram. HISTORY: Liver disease. TECHNIQUE: Juarez scale and color Doppler sonographic imaging of the abdominal vascular structures was performed. COMPARISON: Juarez scale sonographic imaging of the abdomen dated 10/11/2018. FINDINGS: The right and middle hepatic veins are patent with normal spectral flow. The left hepatic vein is not seen. The main and right portal veins are patent with normal junctional flow. The left portal vein is not seen. There is color flow within the splenic vein. No splenic venous waveform could be obtained. The aorta is obscured. IMPRESSION: 1. Limited evaluation due to unresponsive patient status post an inability to maintain a breath-hold. The left hepatic and portal veins and aorta are not seen there is limited evaluation of the splenic vein. 2. Patent right hepatic and middle hepatic veins and main and right portal veins with normal directional flow. 3. Please refer the separate report for the abdomen sonogram dated 10/11/2018 for nonvascular findings. Electronically signed by: Alyssia Sweeney MD (10/12/2018 3:19 PM) [facility]
--- NOTE | 2018-10-12 16:04 | PDOC ---
PROGRESS NOTES Subjective Subjective Patient seen and examined Objective Objective Vital Signs Date Time Temp Pulse Resp B/P (MAP) Pulse Ox O2 Delivery O2 Flow Rate FiO2 10/12/18 15:00 87 10 119/88 (98) 98 Nasal Cannula 5.0 10/12/18 12:00 97.7 97.7 Intake and Output 10/12/18 06:59 Intake Total 3771 ml Output Total 3010 ml Balance 761 ml Intake IV Total 1929 ml Other 1842 ml Output Urine Total 3010 ml # Bowel Movements 3 Physical Exam Abdomen: Normal bowel sounds Heart: Other (irregularly irregular) General: mild distress Lungs: Other (mildly decreased breath sounds) Assessment Assessment Problems Medical Problems: (1) Lactic acidosis Status: Acute (2) Liver failure Status: Acute (3) Pneumonia Status: Acute (4) Renal failure Status: Acute 1. Sepsis. Probable pneumonia. Elevated lactic acid. On antibiotics as per the ID service. Pressor support as needed. Patient improving slowly. 2. Acute renal failure. As per the renal service. 3. Hepatitis. Liver failure. Discussion as above. 4. Acute blood loss. Possible GI bleed. Blood transfusions as needed. 5. Atrial fibrillation. Rate is under better control with treatment of underlying disease process. Echo showed intact LV systolic function approximately one month ago. We'll continue monitoring. Continue supportive care. Comment Review of Relevant I have reviewed the following items daysi (where applicable) has been applied. Labs Laboratory Tests Test 10/10/18 21:07 10/10/18 21:45 10/10/18 21:57 10/10/18 22:30 Urine Collection Type Unknown Urine Color [place] Urine Clarity Clear Urine pH 5.5 Urine Specific [place] 1.020 Urine Protein 100 mg/dL (NEG-TRACE) Urine Glucose (UA) Negative mg/dL (NEG) Urine Ketones (Stick) Trace mg/dL (NEG) Urine Blood Small (NEG) Urine Nitrite Negative (NEG) Urine Bilirubin Small (NEG) Urine Urobilinogen Dipstick 1.0 mg/dL (0.2 mg/dL) Urine Leukocyte Esterase Negative (NEG) Urine RBC 3-5 /HPF (0-2) Urine WBC Occ /HPF (0-4) Urine Squamous Epithelial Cells Occ /LPF Urine Bacteria 0 /HPF (0-FEW) Urine Hyaline Casts Many /HPF Urine Mucus Marked /LPF Urine Opiates Screen Neg (NEG) Urine Methadone Screen Neg (NEG) Urine Barbiturates Neg (NEG) Urine Phencyclidine Screen Neg (NEG) Urine Amphetamine/Methamphetamine Neg (NEG) Urine Benzodiazepines Screen Neg (NEG) Urine Cocaine Screen Neg (NEG) Urine Cannabinoids Screen Neg (NEG) Urine Ethyl Alcohol Neg (NEG) Glucose (Fingerstick) 137 mg/dL (70-99) Stool Occult Blood Positive (NEG) O2 Saturation 98 % (92-99) Arterial Blood pH 7.18 (7.35-7.45) Arterial Blood pCO2 at Patient Temp < 15 mmHg (35-46) Arterial Blood pO2 at Patient Temp 134 mmHg (65-108) Arterial Blood HCO3 5 mmol/L (21-28) Arterial Blood Base Excess -21 mmol/L (-3-3) White Blood Count 14.7 x10^3/uL (4.0-11.0) Red Blood Count 3.26 x10^6/uL (4.30-5.70) Hemoglobin 6.5 g/dL (13.0-17.5) Hematocrit 23.4 % (39.0-53.0) Mean Corpuscular Volume 72 fL (79-100) Mean Corpuscular Hemoglobin 20 pg (25-35) Mean Corpuscular Hemoglobin Concent 28 g/dL (31-37) Red Cell Distribution Width 27.3 % (11.5-14.5) Platelet Count 141 x10^3/uL (140-400) Neutrophils (%) (Auto) 81 % (31-73) Lymphocytes (%) (Auto) 7 % (24-48) Monocytes (%) (Auto) 11 % (0-9) Eosinophils (%) (Auto) 1 % (0-3) Basophils (%) (Auto) 0 % (0-3) Neutrophils # (Auto) 11.9 x10^3uL (1.8-7.7) Lymphocytes # (Auto) 1.0 x10^3/uL (1.0-4.8) Monocytes # (Auto) 1.5 x10^3/uL (0.0-1.1) Eosinophils # (Auto) 0.1 x10^3/uL (0.0-0.7) Basophils # (Auto) 0.0 x10^3/uL (0.0-0.2) Segmented Neutrophils % 80 % (35-66) Band Neutrophils % 9 % (0-9) Lymphocytes % 7 % (24-48) Monocytes % 4 % (0-10) Nucleated Red Blood Cells 6 Platelet Estimate Adequate (ADEQUATE) Polychromasia Slight Hypochromasia Mod Anisocytosis Marked Microcytosis Mod Ovalocytes Few Nicol Cells Many Schistocytes Few Prothrombin Time 52.5 SEC (11.7-14.0) Prothromb Time International Ratio 5.8 (0.8-1.1) Sodium Level 136 mmol/L (136-145) Potassium Level 5.1 mmol/L (3.5-5.1) Chloride Level 101 mmol/L (98-107) Carbon Dioxide Level 10 mmol/L (21-32) Anion Gap 25 (6-14) Blood Urea Nitrogen 49 mg/dL (8-26) Creatinine 3.6 mg/dL (0.7-1.3) Estimated GFR (Cockcroft-Gault) 17.3 BUN/Creatinine Ratio 14 (6-20) Glucose Level 129 mg/dL (70-99) Lactic Acid Level 14.9 mmol/L (0.4-2.0) Calcium Level 7.7 mg/dL (8.5-10.1) Magnesium Level 2.1 mg/dL (1.8-2.4) Total Bilirubin 2.9 mg/dL (0.2-1.0) Aspartate Amino Transf (AST/SGOT) 4514 U/L (15-37) Alanine Aminotransferase (ALT/SGPT) 1550 U/L (16-63) Alkaline Phosphatase 104 U/L (46-116) Creatine Kinase 210 U/L (39-308) Troponin I Quantitative 0.073 ng/mL (0.000-0.055) VG-Noo-N-Type Natriuretic Peptide 3776 pg/mL (0-124) Total Protein 5.8 g/dL (6.4-8.2) Albumin 2.7 g/dL (3.4-5.0) Albumin/Globulin Ratio 0.9 (1.0-1.7) Lipase 408 U/L (73-393) Procalcitonin 0.88 ng/mL (0.00-0.10) Acetaminophen Level 2.7 mcg/ml (10-30) Acetaminophen Last Dose Date Unk Acetaminophen Last Dose Time Unk Ethyl Alcohol Level < 10 mg/dL (0-10) Test 10/10/18 22:56 10/10/18 23:41 10/11/18 00:45 10/11/18 02:00 Glucose (Fingerstick) 111 mg/dL (70-99) Ammonia 28 mcmol/L (11-34) O2 Saturation 97 % (92-99) Arterial Blood pH 7.19 (7.35-7.45) Arterial Blood pCO2 at Patient Temp 19 mmHg (35-46) Arterial Blood pO2 at Patient Temp 125 mmHg (65-108) Arterial Blood HCO3 7 mmol/L (21-28) Arterial Blood Base Excess -19 mmol/L (-3-3) FiO2 40% Lactic Acid Level 13.3 mmol/L (0.4-2.0) Test 10/11/18 05:40 10/11/18 08:00 10/11/18 08:10 10/11/18 11:25 White Blood Count 12.0 x10^3/uL (4.0-11.0) 9.7 x10^3/uL (4.0-11.0) Red Blood Count 4.01 x10^6/uL (4.30-5.70) 3.96 x10^6/uL (4.30-5.70) Hemoglobin 8.4 g/dL (13.0-17.5) 8.2 g/dL (13.0-17.5) Hematocrit 28.4 % (39.0-53.0) 26.8 % (39.0-53.0) Mean Corpuscular Volume 71 fL (79-100) 68 fL (79-100) Mean Corpuscular Hemoglobin 21 pg (25-35) 21 pg (25-35) Mean Corpuscular Hemoglobin Concent 30 g/dL (31-37) 31 g/dL (31-37) Red Cell Distribution Width 27.6 % (11.5-14.5) 27.2 % (11.5-14.5) Platelet Count 146 x10^3/uL (140-400) 123 x10^3/uL (140-400) Neutrophils (%) (Auto) 82 % (31-73) 87 % (31-73) Lymphocytes (%) (Auto) 8 % (24-48) 8 % (24-48) Monocytes (%) (Auto) 8 % (0-9) 5 % (0-9) Eosinophils (%) (Auto) 1 % (0-3) 0 % (0-3) Basophils (%) (Auto) 0 % (0-3) 0 % (0-3) Neutrophils # (Auto) 9.9 x10^3uL (1.8-7.7) 8.5 x10^3uL (1.8-7.7) Lymphocytes # (Auto) 1.0 x10^3/uL (1.0-4.8) 0.7 x10^3/uL (1.0-4.8) Monocytes # (Auto) 1.0 x10^3/uL (0.0-1.1) 0.5 x10^3/uL (0.0-1.1) Eosinophils # (Auto) 0.1 x10^3/uL (0.0-0.7) 0.0 x10^3/uL (0.0-0.7) Basophils # (Auto) 0.0 x10^3/uL (0.0-0.2) 0.0 x10^3/uL (0.0-0.2) Sodium Level 134 mmol/L (136-145) Potassium Level 5.6 mmol/L (3.5-5.1) Chloride Level 96 mmol/L (98-107) Carbon Dioxide Level 15 mmol/L (21-32) Anion Gap 23 (6-14) Blood Urea Nitrogen 60 mg/dL (8-26) Creatinine 4.1 mg/dL (0.7-1.3) Estimated GFR (Cockcroft-Gault) 14.9 BUN/Creatinine Ratio 15 (6-20) Glucose Level 114 mg/dL (70-99) Calcium Level 8.1 mg/dL (8.5-10.1) Total Bilirubin 3.6 mg/dL (0.2-1.0) Aspartate Amino Transf (AST/SGOT) 7583 U/L (15-37) Alanine Aminotransferase (ALT/SGPT) 2622 U/L (16-63) Alkaline Phosphatase 124 U/L (46-116) Total Protein 6.6 g/dL (6.4-8.2) Albumin 3.3 g/dL (3.4-5.0) Albumin/Globulin Ratio 1.0 (1.0-1.7) Salicylates Level < 2.8 mg/dL (2.8-20.0) Salicylate Last Dose Date 10/10/18 Salicylate Last Dose Time 1130 Prothrombin Time 48.2 SEC (11.7-14.0) Prothromb Time International Ratio 5.2 (0.8-1.1) Activated Partial Thromboplast Time 41 SEC (24-38) Lactic Acid Level 4.5 mmol/L (0.4-2.0) Test 10/11/18 19:30 10/12/18 00:05 10/12/18 05:00 White Blood Count 6.6 x10^3/uL (4.0-11.0) 7.9 x10^3/uL (4.0-11.0) 8.0 x10^3/uL (4.0-11.0) Red Blood Count 3.89 x10^6/uL (4.30-5.70) 4.03 x10^6/uL (4.30-5.70) 3.87 x10^6/uL (4.30-5.70) Hemoglobin 8.2 g/dL (13.0-17.5) 8.3 g/dL (13.0-17.5) 8.2 g/dL (13.0-17.5) Hematocrit 25.9 % (39.0-53.0) 27.0 % (39.0-53.0) 25.8 % (39.0-53.0) Mean Corpuscular Volume 66 fL (79-100) 67 fL (79-100) 67 fL (79-100) Mean Corpuscular Hemoglobin 21 pg (25-35) 21 pg (25-35) 21 pg (25-35) Mean Corpuscular Hemoglobin Concent 32 g/dL (31-37) 31 g/dL (31-37) 32 g/dL (31-37) Red Cell Distribution Width 28.1 % (11.5-14.5) 27.7 % (11.5-14.5) 27.3 % (11.5-14.5) Platelet Count 98 x10^3/uL (140-400) 96 x10^3/uL (140-400) 90 x10^3/uL (140-400) Neutrophils (%) (Auto) 85 % (31-73) 86 % (31-73) 86 % (31-73) Lymphocytes (%) (Auto) 11 % (24-48) 10 % (24-48) 10 % (24-48) Monocytes (%) (Auto) 3 % (0-9) 4 % (0-9) 4 % (0-9) Eosinophils (%) (Auto) 1 % (0-3) 0 % (0-3) 0 % (0-3) Basophils (%) (Auto) 0 % (0-3) 0 % (0-3) 0 % (0-3) Neutrophils # (Auto) 5.6 x10^3uL (1.8-7.7) 6.8 x10^3uL (1.8-7.7) 6.9 x10^3uL (1.8-7.7) Lymphocytes # (Auto) 0.7 x10^3/uL (1.0-4.8) 0.8 x10^3/uL (1.0-4.8) 0.8 x10^3/uL (1.0-4.8) Monocytes # (Auto) 0.2 x10^3/uL (0.0-1.1) 0.3 x10^3/uL (0.0-1.1) 0.3 x10^3/uL (0.0-1.1) Eosinophils # (Auto) 0.0 x10^3/uL (0.0-0.7) 0.0 x10^3/uL (0.0-0.7) 0.0 x10^3/uL (0.0-0.7) Basophils # (Auto) 0.0 x10^3/uL (0.0-0.2) 0.0 x10^3/uL (0.0-0.2) 0.0 x10^3/uL (0.0-0.2) Prothrombin Time 40.4 SEC (11.7-14.0) Prothromb Time International Ratio 4.2 (0.8-1.1) Sodium Level 137 mmol/L (136-145) Potassium Level 3.1 mmol/L (3.5-5.1) Chloride Level 98 mmol/L (98-107) Carbon Dioxide Level 32 mmol/L (21-32) Anion Gap 7 (6-14) Blood Urea Nitrogen 35 mg/dL (8-26) Creatinine 2.0 mg/dL (0.7-1.3) Estimated GFR (Cockcroft-Gault) 34.0 BUN/Creatinine Ratio 18 (6-20) Glucose Level 177 mg/dL (70-99) Calcium Level 7.7 mg/dL (8.5-10.1) Total Bilirubin 3.2 mg/dL (0.2-1.0) Aspartate Amino Transf (AST/SGOT) 3722 U/L (15-37) Alanine Aminotransferase (ALT/SGPT) 2141 U/L (16-63) Alkaline Phosphatase 106 U/L (46-116) Total Protein 5.2 g/dL (6.4-8.2) Albumin 2.4 g/dL (3.4-5.0) Albumin/Globulin Ratio 0.9 (1.0-1.7) Laboratory Tests Test 10/11/18 19:30 10/12/18 00:05 10/12/18 05:00 White Blood Count 6.6 x10^3/uL (4.0-11.0) 7.9 x10^3/uL (4.0-11.0) 8.0 x10^3/uL (4.0-11.0) Red Blood Count 3.89 x10^6/uL (4.30-5.70) 4.03 x10^6/uL (4.30-5.70) 3.87 x10^6/uL (4.30-5.70) Hemoglobin 8.2 g/dL (13.0-17.5) 8.3 g/dL (13.0-17.5) 8.2 g/dL (13.0-17.5) Hematocrit 25.9 % (39.0-53.0) 27.0 % (39.0-53.0) 25.8 % (39.0-53.0) Mean Corpuscular Volume 66 fL (79-100) 67 fL (79-100) 67 fL (79-100) Mean Corpuscular Hemoglobin 21 pg (25-35) 21 pg (25-35) 21 pg (25-35) Mean Corpuscular Hemoglobin Concent 32 g/dL (31-37) 31 g/dL (31-37) 32 g/dL (31-37) Red Cell Distribution Width 28.1 % (11.5-14.5) 27.7 % (11.5-14.5) 27.3 % (11.5-14.5) Platelet Count 98 x10^3/uL (140-400) 96 x10^3/uL (140-400) 90 x10^3/uL (140-400) Neutrophils (%) (Auto) 85 % (31-73) 86 % (31-73) 86 % (31-73) Lymphocytes (%) (Auto) 11 % (24-48) 10 % (24-48) 10 % (24-48) Monocytes (%) (Auto) 3 % (0-9) 4 % (0-9) 4 % (0-9) Eosinophils (%) (Auto) 1 % (0-3) 0 % (0-3) 0 % (0-3) Basophils (%) (Auto) 0 % (0-3) 0 % (0-3) 0 % (0-3) Neutrophils # (Auto) 5.6 x10^3uL (1.8-7.7) 6.8 x10^3uL (1.8-7.7) 6.9 x10^3uL (1.8-7.7) Lymphocytes # (Auto) 0.7 x10^3/uL (1.0-4.8) 0.8 x10^3/uL (1.0-4.8) 0.8 x10^3/uL (1.0-4.8) Monocytes # (Auto) 0.2 x10^3/uL (0.0-1.1) 0.3 x10^3/uL (0.0-1.1) 0.3 x10^3/uL (0.0-1.1) Eosinophils # (Auto) 0.0 x10^3/uL (0.0-0.7) 0.0 x10^3/uL (0.0-0.7) 0.0 x10^3/uL (0.0-0.7) Basophils # (Auto) 0.0 x10^3/uL (0.0-0.2) 0.0 x10^3/uL (0.0-0.2) 0.0 x10^3/uL (0.0-0.2) Prothrombin Time 40.4 SEC (11.7-14.0) Prothromb Time International Ratio 4.2 (0.8-1.1) Sodium Level 137 mmol/L (136-145) Potassium Level 3.1 mmol/L (3.5-5.1) Chloride Level 98 mmol/L (98-107) Carbon Dioxide Level 32 mmol/L (21-32) Anion Gap 7 (6-14) Blood Urea Nitrogen 35 mg/dL (8-26) Creatinine 2.0 mg/dL (0.7-1.3) Estimated GFR (Cockcroft-Gault) 34.0 BUN/Creatinine Ratio 18 (6-20) Glucose Level 177 mg/dL (70-99) Calcium Level 7.7 mg/dL (8.5-10.1) Total Bilirubin 3.2 mg/dL (0.2-1.0) Aspartate Amino Transf (AST/SGOT) 3722 U/L (15-37) Alanine Aminotransferase (ALT/SGPT) 2141 U/L (16-63) Alkaline Phosphatase 106 U/L (46-116) Total Protein 5.2 g/dL (6.4-8.2) Albumin 2.4 g/dL (3.4-5.0) Albumin/Globulin Ratio 0.9 (1.0-1.7) Microbiology 10/10/18 Blood Culture - Preliminary, Resulted NO GROWTH AFTER 1 DAY Medications Current Medications Sodium Chloride 1,000 ml @ 1,000 mls/hr 1X ONCE IV Last administered on 10/10/18at 22:43; Start 10/10/18 at 22:00; Stop 10/10/18 at 22:59; Status DC Sodium Chloride 1,000 ml @ 1,000 mls/hr 1X ONCE IV Last administered on 10/10/18at 22:42; Start 10/10/18 at 22:00; Stop 10/10/18 at 22:59; Status DC Piperacillin Sod/ Tazobactam Sod (Zosyn Per Pharmacy) 1 each PRN DAILY PRN MC SEE COMMENTS; Start 10/10/18 at 22:00; Stop 10/10/18 at 22:33; Status DC Piperacillin Sod/ Tazobactam Sod 3.375 gm/Sodium Chloride 50 ml @ 100 mls/hr 1X ONCE IV Last administered on 10/10/18at 22:44; Start 10/10/18 at 22:15; Stop 10/10/18 at 22:44; Status DC Sodium Bicarbonate (Sodium Bicarb Adult 8.4% Syr) 50 meq 1X ONCE IV Last administered on 10/10/18at 22:43; Start 10/10/18 at 22:30; Stop 10/10/18 at 22:31; Status DC Calcium Gluconate (Calcium Gluconate) 1,000 mg 1X ONCE IVP Last administered on 10/10/18at 22:43; Start 10/10/18 at 22:30; Stop 10/10/18 at 22:31; Status DC Piperacillin Sod/ Tazobactam Sod (Zosyn Per Pharmacy) 1 each PRN DAILY PRN MC SEE COMMENTS; Start 10/10/18 at 22:45 Pantoprazole Sodium 80 mg/ Sodium Chloride 100 ml @ 10 mls/hr Q10H IV Last administered on 10/12/18at 08:31; Start 10/10/18 at 23:30; Stop 10/12/18 at 14:57; Status DC Phytonadione 10 mg/Dextrose 51 ml @ 102 mls/hr 1X ONCE IV Last administered on 10/10/18at 23:46; Start 10/10/18 at 23:30; Stop 10/10/18 at 23:59; Status DC Octreotide Acetate 500 mcg/ Sodium Chloride 101 ml @ 0 mls/hr CONT PRN IV SEE I/O RECORD Last administered on 10/12/18at 08:32; Start 10/10/18 at 23:45; Stop 10/12/18 at 14:57; Status DC Sodium Bicarbonate 50 meq/Dextrose 1,050 ml @ 125 mls/hr 1X ONCE IV Last administered on 10/11/18at 00:01; Start 10/10/18 at 23:55; Stop 10/11/18 at 08:18; Status DC Piperacillin Sod/ Tazobactam Sod 2.25 gm/Sodium Chloride 50 ml @ 100 mls/hr Q6HRS IV Last administered on 10/11/18at 05:30; Start 10/11/18 at 06:00; Stop 10/11/18 at 08:25; Status DC Meropenem 500 mg/ Sodium Chloride 50 ml @ 100 mls/hr Q8HRS IV ; Start 10/11/18 at 14:00; Stop 10/11/18 at 14:00; Status DC Ondansetron HCl (Zofran) 4 mg 1X ONCE IV Last administered on 10/11/18at 06:41; Start 10/11/18 at 06:45; Stop 10/11/18 at 06:46; Status DC Thiamine HCl 100 mg/Dextrose 51 ml @ 102 mls/hr 1X ONCE IV Last administered on 10/11/18at 07:40; Start 10/11/18 at 07:00; Stop 10/11/18 at 07:29; Status DC Folic Acid (Folic Acid) 1 mg DAILY PO ; Start 10/11/18 at 09:00; Stop 10/12/18 at 09:03; Status DC Levofloxacin/ Dextrose 50 ml @ 50 mls/hr 1X ONCE IV Last administered on 10/11/18at 07:42; Start 10/11/18 at 07:00; Stop 10/11/18 at 07:59; Status DC Albuterol Sulfate (Ventolin Neb Soln) 2.5 mg PRN Q4HRS PRN NEB SHORTNESS OF BREATH; Start 10/11/18 at 07:15 Lorazepam (Ativan) 1 mg 1X ONCE IV Last administered on 10/11/18at 07:37; Start 10/11/18 at 07:30; Stop 10/11/18 at 09:35; Status DC Lorazepam (Ativan) 1 mg PRN Q3HRS PRN IV ANXIETY / AGITATION; Start 10/11/18 at 08:00; Stop 10/11/18 at 09:35; Status DC Piperacillin Sod/ Tazobactam Sod 2.25 gm/Sodium Chloride 50 ml @ 100 mls/hr Q8HRS IV Last administered on 10/12/18at 15:46; Start 10/11/18 at 14:00 Ondansetron HCl (Zofran) 4 mg PRN Q6HRS PRN IV NAUSEA/VOMITING; Start 10/11/18 at 08:45 Lactulose (Lactulose) 30 gm TID PO ; Start 10/11/18 at 09:30; Stop 10/11/18 at 11:25; Status DC Sodium Bicarbonate 50 meq/Dextrose 1,050 ml @ 60 mls/hr [id number] IV Last administered on 10/12/18at 02:21; Start 10/11/18 at 10:00; Stop 10/12/18 at 10:58; Status DC Dexmedetomidine HCl 200 mcg/ Sodium Chloride 50 ml @ 0 mls/hr CONT PRN IV PER PROTOCOL Last administered on 10/12/18at 13:00; Start 10/11/18 at 09:45 Sodium Chloride 500 ml @ 500 mls/hr 1X PRN PRN IV SEE COMMENTS; Start 10/11/18 at 09:45 Atropine Sulfate (ATROPINE 0.5mg SYRINGE) 0.5 mg PRN Q5MIN PRN IV SEE COMMENTS; Start 10/11/18 at 09:45 Sodium Bicarbonate (Sodium Bicarb Adult 8.4% Syr) 50 meq STK-MED ONCE .ROUTE ; Start 10/11/18 at 09:42; Stop 10/11/18 at 09:43; Status DC Sodium Bicarbonate (Sodium Bicarb Adult 8.4% Syr) 100 meq 1X ONCE IV Last administered on 10/11/18at 10:00; Start 10/11/18 at 10:00; Stop 10/11/18 at 10:01; Status DC Lactulose (Lactulose) 30 gm TID HI ; Start 10/11/18 at 12:00; Stop 10/11/18 at 13:06; Status DC Lidocaine/Sodium Bicarbonate (Buffered Lidocaine 1%) 3 ml STK-MED ONCE .ROUTE ; Start 10/11/18 at 12:34; Stop 10/11/18 at 12:35; Status DC Heparin Sodium (Porcine) (Heparin Sodium) 10,000 unit STK-MED ONCE .ROUTE ; Start 10/11/18 at 12:34; Stop 10/11/18 at 12:35; Status DC Lactulose (Lactulose) 200 gm TID HI Last administered on 10/11/18at 20:55; Start 10/11/18 at 14:00; Stop 10/12/18 at 09:22; Status DC Sodium Chloride 1,000 ml @ 1,000 mls/hr Q1H PRN IV hypotension; Start 10/11/18 at 13:06; Stop 10/11/18 at 19:05; Status DC Albumin Human 200 ml @ 200 mls/hr 1X PRN PRN IV Hypotension; Start 10/11/18 at 13:15; Stop 10/11/18 at 19:14; Status DC Sodium Chloride (Normal Saline Flush) 10 ml 1X PRN PRN IV AP catheter pack; Start 10/11/18 at 13:15; Stop 10/12/18 at 13:14; Status DC Sodium Chloride (Normal Saline Flush) 10 ml 1X PRN PRN 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; Start 10/11/18 at 13:15; Stop 10/12/18 at 13:14; Status DC Sodium Chloride 1,000 ml @ 400 mls/hr Q2H30M PRN IV PATENCY; Start 10/11/18 at 13:06; Stop 10/12/18 at 01:05; Status DC Info (PHARMACY MONITORING -- do not chart) 1 each PRN DAILY PRN MC SEE COMMENTS; Start 10/11/18 at 13:15; Status UNV Info (PHARMACY MONITORING -- do not chart) 1 each PRN DAILY PRN MC SEE COMMENTS; Start 10/11/18 at 13:15 Lidocaine/Sodium Bicarbonate (Buffered Lidocaine 1%) 6 ml 1X ONCE INJ Last administered on 10/11/18at 13:42; Start 10/11/18 at 13:45; Stop 10/11/18 at 13:46; Status DC Potassium Chloride/Water 50 ml @ 50 mls/hr 1X ONCE IV Last administered on 10/12/18at 09:30; Start 10/12/18 at 09:00; Stop 10/12/18 at 09:59; Status DC Lactulose (Lactulose) 200 gm PRN TID PRN HI CONFUSION Last administered on 10/12/18at 11:37; Start 10/12/18 at 09:30 Amino Acids/ Glycerin/ Electrolytes 1,000 ml @ 60 mls/hr [id number] IV Last administered on 10/12/18at 10:00; Start 10/12/18 at 10:00 Amino Acids/ Glycerin/ Electrolytes 1,000 ml @ As Directed STK-MED ONCE IV ; Start 10/12/18 at 09:58; Stop 10/12/18 at 09:59; Status DC Pantoprazole Sodium (PROTONIX VIAL for IV PUSH) 40 mg BID IVP ; Start 10/12/18 at 21:00 Active Scripts Active Lactulose 20 Gm/30 Ml Solution 20 Gm PO PRN TID PRN 30 Days Klor-Con M20 (Potassium Chloride) 20 Meq Tab.er.prt 40 Meq PO DAILY 30 Days [Pantoprazole] 40 MG Tablet.dr 40 Mg PO DAILYAC 30 Days Hydroxyzine Pamoate 25 Mg Capsule 25 Mg PO PRN Q8HRS PRN 30 Days Aspirin Ec (Aspirin) 81 Mg Tablet.dr 81 Mg PO DAILYWBKFT 30 Days [Diltiazem Hcl] 240 MG Cap.er.24h 240 Mg PO DAILY 30 Days Metoprolol Tartrate 25 Mg Tablet 25 Mg PO BID 30 Days Vitamin B-1 (Thiamine Mononitrate) 100 Mg Tablet 100 Mg PO DAILY Hydrocodone-Apap 7.5-325 (Hydrocodone Bit/Acetaminophen) 1 Each Tablet 1 Tab PO PRN Q3HRS PRN Folic Acid 1 Mg Tablet 1 Mg PO DAILY Reported Tums (Calcium Carbonate) 300 Mg Tab.chew 300 Mg PO TIDAC PRN Cyclobenzaprine Hcl 10 Mg Tablet 1 Tab PO QHS Gabapentin (Gabapentin) 300 Mg Capsule 300 Mg PO TID Vitals/I & O Vital Sign - Last 24 Hours 10/11/18 10/11/18 10/11/18 10/11/18 17:00 18:00 19:00 20:00 Pulse 87 102 82 Resp 14 13 12 B/P (MAP) 115/56 (75) 103/58 (73) 95/62 (73) Pulse Ox 100 98 95 O2 Delivery Nasal Cannula Nasal Cannula Nasal Cannula Nasal Cannula O2 Flow Rate 2.0 2.0 2.0 2.0 10/11/18 10/11/18 10/11/18 10/11/18 20:00 21:00 22:00 23:00 Temp 98.6 98.6 Pulse 104 108 96 91 Resp 14 13 12 10 B/P (MAP) 117/63 (81) 118/72 (87) 103/67 (79) 109/67 (81) Pulse Ox 95 99 99 97 O2 Delivery Nasal Cannula Nasal Cannula Nasal Cannula Nasal Cannula O2 Flow Rate 2.0 2.0 2.0 2.0 10/12/18 10/12/18 10/12/18 10/12/18 00:00 00:00 01:00 02:00 Temp 98.1 98.1 Pulse 88 89 79 Resp 11 19 10 B/P (MAP) 99/77 (84) 123/72 (89) 122/74 (90) Pulse Ox 98 98 98 O2 Delivery Nasal Cannula Nasal Cannula Nasal Cannula Nasal Cannula O2 Flow Rate 2.0 2.0 2.0 2.0 10/12/18 10/12/18 10/12/18 10/12/18 03:00 03:45 04:00 05:00 Temp 97.7 97.7 Pulse 89 94 83 Resp 10 10 10 B/P (MAP) 119/79 (92) 103/72 (82) 117/75 (89) Pulse Ox 98 97 95 O2 Delivery Nasal Cannula Nasal Cannula Nasal Cannula Nasal Cannula O2 Flow Rate 2.0 2.0 2.0 2.0 10/12/18 10/12/18 10/12/18 10/12/18 06:00 07:00 08:00 08:00 Temp 97.5 97.5 Pulse 98 83 83 Resp 12 10 10 B/P (MAP) 123/83 (96) 106/61 (76) 119/79 (92) Pulse Ox 93 93 94 O2 Delivery Nasal Cannula Nasal Cannula Nasal Cannula Nasal Cannula O2 Flow Rate 2.0 2.0 2.0 2.0 10/12/18 10/12/18 10/12/18 10/12/18 09:00 10:00 11:00 12:00 Temp 97.7 97.7 Pulse 80 80 77 72 Resp 10 9 10 10 B/P (MAP) 123/74 (90) 135/83 (100) 106/87 (93) 111/78 (89) Pulse Ox 95 94 95 96 O2 Delivery Nasal Cannula Nasal Cannula Nasal Cannula Nasal Cannula O2 Flow Rate 2.0 5.0 5.0 5.0 10/12/18 10/12/18 10/12/18 10/12/18 12:00 13:00 14:00 15:00 Pulse 68 83 87 Resp 10 9 10 B/P (MAP) 124/75 (91) 114/91 (99) 119/88 (98) Pulse Ox 95 97 98 O2 Delivery Nasal Cannula Nasal Cannula Nasal Cannula Nasal Cannula O2 Flow Rate 5.0 5.0 5.0 5.0 Intake and Output 10/11/18 10/11/18 10/12/18 14:59 22:59 06:59 Intake Total 1892 ml 1879 ml Output Total 565 ml 1165 ml 1280 ml Balance -565 ml 727 ml 599 ml LULU BOWLES MD October 12, 2018 16:04
[2018-10-12] MEDS ORDERED: ALBUMIN HUMAN 25% 50 ML IV ONE (18:00)
[2018-10-13] VITALS (24 sets, daily range): BP systolic 92–139; BP diastolic 64–100
[2018-10-13] MEDS: PIPERACILLIN/TAZOBACTAM 2.25 GM in IV NORMAL SALINE 50ML 50 ML IV SCH ×4 (00:12→17:39)
[2018-10-13] MEDS: DEXMEDETOMIDINE 200 MCG in IV NORMAL SALINE 50ML 48 ML IV PRN ×3 (00:12→07:33)
[2018-10-13] MEDS: AMINO AC 3%/ELECTROLYTE/GLYCER 1,000 ML IV SCH ×2 (00:16→21:03)
[2018-10-13] MEDS: PANTOPRAZOLE IV PUSH 40 MG VIAL. IVP SCH ×3 (00:16→22:00)
[2018-10-13 06:15] LABS: CALCIUM 7.8 mg/dL (8.5-10.1); CREATININE 1.6 mg/dL (0.7-1.3)
[2018-10-13 06:18] LABS: POTASSIUM 2.9 mmol/L (3.5-5.1)
[2018-10-13 07:14] LABS: PROTHROMBIN TIME PATIENT 24.2 SEC (11.7-14.0)
[2018-10-13] MEDS: POTASSIUM CHLORIDE 10MEQ 100 ML IV SCH ×4 (07:31→11:33)
--- NOTE | 2018-10-13 08:15 | PDOC ---
Infectious Disease Note Subjective: Subjective Sedated but arousable off bicar drip ROS: ROS unable to obtain d/w RN Vital Signs: Vital Signs Vital Signs Date Time Temp Pulse Resp B/P (MAP) Pulse Ox O2 Delivery O2 Flow Rate FiO2 10/13/18 06:00 105 12 112/84 (93) 98 Nasal Cannula 5.0 10/13/18 04:00 97.8 97.8 Physical Exam: PHYSICAL EXAM GENERAL: Lying down, unresponsive to verbal stimuli HENT: PERRL. Oral cavity dry LUNGS: Clear CV: S1 S2 irregular ABD: Soft, no grimace to palpation : Rodriguez EXT: No gross edema or cyanosis SKIN: No generalized rash [employer]: Sedated Nontunneled RIJ/HDC (10/11) clean Left groin CVC Medications: Inpatient Meds: Current Medications Medications (Trade) Dose Ordered Sig/Debbie Start Time Stop Time Status Last Admin Dose Admin Albumin Human 50 ml @ 50 mls/hr 1X ONCE 10/12/18 18:00 10/12/18 18:59 DC 10/12/18 18:04 50 MLS/HR Albuterol Sulfate (Ventolin Neb Soln) 2.5 mg PRN Q4HRS PRN 10/11/18 07:15 Amino Acids/ Glycerin/ Electrolytes 1,000 ml @ As Directed STK-MED ONCE 10/12/18 09:58 10/12/18 09:59 DC Atropine Sulfate (ATROPINE 0.5mg SYRINGE) 0.5 mg PRN Q5MIN PRN 10/11/18 09:45 Calcium Gluconate (Calcium Gluconate) 1,000 mg 1X ONCE 10/10/18 22:30 10/10/18 22:31 DC 10/10/18 22:43 1,000 MG Dexmedetomidine HCl 200 mcg/ Sodium Chloride 50 ml @ 0 mls/hr CONT PRN 10/11/18 09:45 10/13/18 07:33 13.3 MLS/HR Folic Acid (Folic Acid) 1 mg DAILY 10/11/18 09:00 10/12/18 09:03 DC Heparin Sodium (Porcine) (Heparin Sodium) 10,000 unit STK-MED ONCE 10/11/18 12:34 10/11/18 12:35 DC Info (PHARMACY MONITORING -- do not chart) 1 each PRN DAILY PRN 10/11/18 13:15 Lactulose (Lactulose) 200 gm PRN TID PRN 10/12/18 09:30 10/12/18 11:37 200 GM Levofloxacin/ Dextrose 50 ml @ 50 mls/hr 1X ONCE 10/11/18 07:00 10/11/18 07:59 DC 10/11/18 07:42 50 MLS/HR Lidocaine/Sodium Bicarbonate (Buffered Lidocaine 1%) 6 ml 1X ONCE 10/11/18 13:45 10/11/18 13:46 DC 10/11/18 13:42 4 ML Lorazepam (Ativan) 1 mg PRN Q3HRS PRN 10/11/18 08:00 10/11/18 09:35 DC Meropenem 500 mg/ Sodium Chloride 50 ml @ 100 mls/hr Q8HRS 10/11/18 14:00 10/11/18 14:00 DC Octreotide Acetate 500 mcg/ Sodium Chloride 101 ml @ 0 mls/hr CONT PRN 10/10/18 23:45 10/12/18 14:57 DC 10/12/18 08:32 5 MLS/HR Ondansetron HCl (Zofran) 4 mg PRN Q6HRS PRN 10/11/18 08:45 Pantoprazole Sodium (PROTONIX VIAL for IV PUSH) 40 mg BID 10/12/18 21:00 10/13/18 00:16 40 MG Pantoprazole Sodium 80 mg/ Sodium Chloride 100 ml @ 10 mls/hr Q10H 10/10/18 23:30 10/12/18 14:57 DC 10/12/18 08:31 10 MLS/HR Phytonadione 10 mg/Dextrose 51 ml @ 102 mls/hr 1X ONCE 10/10/18 23:30 10/10/18 23:59 DC 10/10/18 23:46 102 MLS/HR Piperacillin Sod/ Tazobactam Sod (Zosyn Per Pharmacy) 1 each PRN DAILY PRN 10/10/18 22:45 Piperacillin Sod/ Tazobactam Sod 2.25 gm/Sodium Chloride 50 ml @ 100 mls/hr Q8HRS 10/11/18 14:00 10/13/18 05:34 100 MLS/HR Piperacillin Sod/ Tazobactam Sod 3.375 gm/Sodium Chloride 50 ml @ 100 mls/hr 1X ONCE 10/10/18 22:15 10/10/18 22:44 DC 10/10/18 22:44 100 MLS/HR Potassium Chloride/Water 100 ml @ 100 mls/hr Q1H 10/13/18 07:00 10/13/18 10:59 10/13/18 07:31 100 MLS/HR Sodium Bicarbonate 50 meq/Dextrose 1,050 ml @ 60 mls/hr [id number] 10/11/18 10:00 10/12/18 10:58 DC 10/12/18 02:21 125 MLS/HR Sodium Bicarbonate (Sodium Bicarb Adult 8.4% Syr) 100 meq 1X ONCE 10/11/18 10:00 10/11/18 10:01 DC 10/11/18 10:00 100 MEQ Sodium Chloride 1,000 ml @ 400 mls/hr Q2H30M PRN 10/11/18 13:06 10/12/18 01:05 DC Sodium Chloride (Normal Saline Flush) 10 ml 1X PRN PRN 10/11/18 13:15 10/12/18 13:14 DC Thiamine HCl 100 mg/Dextrose 51 ml @ 102 mls/hr 1X ONCE 10/11/18 07:00 10/11/18 07:29 DC 10/11/18 07:40 102 MLS/HR Labs: Lab Laboratory Tests Test 10/13/18 05:35 Prothrombin Time 24.2 SEC (11.7-14.0) Prothromb Time International Ratio 2.2 (0.8-1.1) Sodium Level 135 mmol/L (136-145) Potassium Level 2.9 mmol/L (3.5-5.1) Chloride Level 96 mmol/L (98-107) Carbon Dioxide Level 32 mmol/L (21-32) Anion Gap 7 (6-14) Blood Urea Nitrogen 36 mg/dL (8-26) Creatinine 1.6 mg/dL (0.7-1.3) Estimated GFR (Cockcroft-Gault) 44.0 Glucose Level 127 mg/dL (70-99) Calcium Level 7.8 mg/dL (8.5-10.1) Objective: Assessment: Sepsis with lactic acidosis Hypothermia, now improved and off Jo-Ann hugger Leukocytosis Acute encephalopathy likely metabolic with hepatic failure NATHANIEL on CKD Acute liver failure ,ammonia wnl Respiratory insufficiency, O2 5L ? colitis on CT A- fib Hep C, VL 24,700 Anemia s/p fall Recent hospitalization Myoclonic movements bue, from hepatic failure improved Plan: Plan of Care continue Zosyn, adjusted for renal function One time dose Levaquin, 5/4 Avoid nephrotoxic agents f/u cultures Monitor labs DNR Critically ill Prognosis poor D/W FIDELIA HERNANDEZ MD October 13, 2018 08:15
--- NOTE | 2018-10-13 09:52 | PDOC ---
PROGRESS NOTES Assessment Problems Medical Problems: (1) Lactic acidosis Status: Acute (2) Liver failure Status: Acute (3) Pneumonia Status: Acute (4) Renal failure Status: Acute Metabolic encephalopathy in patient with respiratory failure, sepsis, acute liver failure with transaminitis and coagulopathy, gastrointestinal bleed, thrombocytopenia, pneumonia, metabolic acidosis secondary to lactic acidosis, hyperkalemia. On Precedex Plan Continue current supportive medical care. Subjective None Objective Vital Signs Date Time Temp Pulse Resp B/P (MAP) Pulse Ox O2 Delivery O2 Flow Rate FiO2 10/13/18 06:00 105 12 112/84 (93) 98 Nasal Cannula 5.0 10/13/18 04:00 97.8 97.8 Intake and Output 10/13/18 07:00 Intake Total 1021 ml Output Total 3065 ml Balance -2044 ml Intake IV Total 1021 ml Output Urine Total 3065 ml # Bowel Movements 3 PHYSICAL EXAM Eyes closed, opens eyes to voice, follow some commands, murmurs replies PERRL. EOMI. CN: no focal findings. Muscle tone: normal. Muscle strength: Movement of all 4 extremities, asterixis (negative tone) DTR: 0+ Plantar reflex: flexor Gait: not examined in bed. Sensory exam: not cooperative. Cerebellar: Not cooperative Review of Relevant I have reviewed the following items daysi (where applicable) has been applied. Labs Laboratory Tests Test 10/11/18 11:25 10/11/18 19:30 10/12/18 00:05 10/12/18 05:00 White Blood Count 9.7 x10^3/uL (4.0-11.0) 6.6 x10^3/uL (4.0-11.0) 7.9 x10^3/uL (4.0-11.0) 8.0 x10^3/uL (4.0-11.0) Red Blood Count 3.96 x10^6/uL (4.30-5.70) 3.89 x10^6/uL (4.30-5.70) 4.03 x10^6/uL (4.30-5.70) 3.87 x10^6/uL (4.30-5.70) Hemoglobin 8.2 g/dL (13.0-17.5) 8.2 g/dL (13.0-17.5) 8.3 g/dL (13.0-17.5) 8.2 g/dL (13.0-17.5) Hematocrit 26.8 % (39.0-53.0) 25.9 % (39.0-53.0) 27.0 % (39.0-53.0) 25.8 % (39.0-53.0) Mean Corpuscular Volume 68 fL (79-100) 66 fL (79-100) 67 fL (79-100) 67 fL (79-100) Mean Corpuscular Hemoglobin 21 pg (25-35) 21 pg (25-35) 21 pg (25-35) 21 pg (25-35) Mean Corpuscular Hemoglobin Concent 31 g/dL (31-37) 32 g/dL (31-37) 31 g/dL (31-37) 32 g/dL (31-37) Red Cell Distribution Width 27.2 % (11.5-14.5) 28.1 % (11.5-14.5) 27.7 % (11.5-14.5) 27.3 % (11.5-14.5) Platelet Count 123 x10^3/uL (140-400) 98 x10^3/uL (140-400) 96 x10^3/uL (140-400) 90 x10^3/uL (140-400) Neutrophils (%) (Auto) 87 % (31-73) 85 % (31-73) 86 % (31-73) 86 % (31-73) Lymphocytes (%) (Auto) 8 % (24-48) 11 % (24-48) 10 % (24-48) 10 % (24-48) Monocytes (%) (Auto) 5 % (0-9) 3 % (0-9) 4 % (0-9) 4 % (0-9) Eosinophils (%) (Auto) 0 % (0-3) 1 % (0-3) 0 % (0-3) 0 % (0-3) Basophils (%) (Auto) 0 % (0-3) 0 % (0-3) 0 % (0-3) 0 % (0-3) Neutrophils # (Auto) 8.5 x10^3uL (1.8-7.7) 5.6 x10^3uL (1.8-7.7) 6.8 x10^3uL (1.8-7.7) 6.9 x10^3uL (1.8-7.7) Lymphocytes # (Auto) 0.7 x10^3/uL (1.0-4.8) 0.7 x10^3/uL (1.0-4.8) 0.8 x10^3/uL (1.0-4.8) 0.8 x10^3/uL (1.0-4.8) Monocytes # (Auto) 0.5 x10^3/uL (0.0-1.1) 0.2 x10^3/uL (0.0-1.1) 0.3 x10^3/uL (0.0-1.1) 0.3 x10^3/uL (0.0-1.1) Eosinophils # (Auto) 0.0 x10^3/uL (0.0-0.7) 0.0 x10^3/uL (0.0-0.7) 0.0 x10^3/uL (0.0-0.7) 0.0 x10^3/uL (0.0-0.7) Basophils # (Auto) 0.0 x10^3/uL (0.0-0.2) 0.0 x10^3/uL (0.0-0.2) 0.0 x10^3/uL (0.0-0.2) 0.0 x10^3/uL (0.0-0.2) Lactic Acid Level 4.5 mmol/L (0.4-2.0) Prothrombin Time 40.4 SEC (11.7-14.0) Prothromb Time International Ratio 4.2 (0.8-1.1) Sodium Level 137 mmol/L (136-145) Potassium Level 3.1 mmol/L (3.5-5.1) Chloride Level 98 mmol/L (98-107) Carbon Dioxide Level 32 mmol/L (21-32) Anion Gap 7 (6-14) Blood Urea Nitrogen 35 mg/dL (8-26) Creatinine 2.0 mg/dL (0.7-1.3) Estimated GFR (Cockcroft-Gault) 34.0 BUN/Creatinine Ratio 18 (6-20) Glucose Level 177 mg/dL (70-99) Calcium Level 7.7 mg/dL (8.5-10.1) Total Bilirubin 3.2 mg/dL (0.2-1.0) Aspartate Amino Transf (AST/SGOT) 3722 U/L (15-37) Alanine Aminotransferase (ALT/SGPT) 2141 U/L (16-63) Alkaline Phosphatase 106 U/L (46-116) Total Protein 5.2 g/dL (6.4-8.2) Albumin 2.4 g/dL (3.4-5.0) Albumin/Globulin Ratio 0.9 (1.0-1.7) Test 10/13/18 05:35 Prothrombin Time 24.2 SEC (11.7-14.0) Prothromb Time International Ratio 2.2 (0.8-1.1) Fibrinogen 193 mg/dL (200-440) Sodium Level 135 mmol/L (136-145) Potassium Level 2.9 mmol/L (3.5-5.1) Chloride Level 96 mmol/L (98-107) Carbon Dioxide Level 32 mmol/L (21-32) Anion Gap 7 (6-14) Blood Urea Nitrogen 36 mg/dL (8-26) Creatinine 1.6 mg/dL (0.7-1.3) Estimated GFR (Cockcroft-Gault) 44.0 Glucose Level 127 mg/dL (70-99) Calcium Level 7.8 mg/dL (8.5-10.1) Laboratory Tests Test 10/13/18 05:35 Prothrombin Time 24.2 SEC (11.7-14.0) Prothromb Time International Ratio 2.2 (0.8-1.1) Fibrinogen 193 mg/dL (200-440) Sodium Level 135 mmol/L (136-145) Potassium Level 2.9 mmol/L (3.5-5.1) Chloride Level 96 mmol/L (98-107) Carbon Dioxide Level 32 mmol/L (21-32) Anion Gap 7 (6-14) Blood Urea Nitrogen 36 mg/dL (8-26) Creatinine 1.6 mg/dL (0.7-1.3) Estimated GFR (Cockcroft-Gault) 44.0 Glucose Level 127 mg/dL (70-99) Calcium Level 7.8 mg/dL (8.5-10.1) Microbiology 10/10/18 Blood Culture - Preliminary, Resulted NO GROWTH AFTER 2 DAYS Medications Current Medications Sodium Chloride 1,000 ml @ 1,000 mls/hr 1X ONCE IV Last administered on 10/10/18at 22:43; Start 10/10/18 at 22:00; Stop 10/10/18 at 22:59; Status DC Sodium Chloride 1,000 ml @ 1,000 mls/hr 1X ONCE IV Last administered on 10/10/18at 22:42; Start 10/10/18 at 22:00; Stop 10/10/18 at 22:59; Status DC Piperacillin Sod/ Tazobactam Sod (Zosyn Per Pharmacy) 1 each PRN DAILY PRN MC SEE COMMENTS; Start 10/10/18 at 22:00; Stop 10/10/18 at 22:33; Status DC Piperacillin Sod/ Tazobactam Sod 3.375 gm/Sodium Chloride 50 ml @ 100 mls/hr 1X ONCE IV Last administered on 10/10/18at 22:44; Start 10/10/18 at 22:15; Stop 10/10/18 at 22:44; Status DC Sodium Bicarbonate (Sodium Bicarb Adult 8.4% Syr) 50 meq 1X ONCE IV Last administered on 10/10/18at 22:43; Start 10/10/18 at 22:30; Stop 10/10/18 at 22:31; Status DC Calcium Gluconate (Calcium Gluconate) 1,000 mg 1X ONCE IVP Last administered on 10/10/18at 22:43; Start 10/10/18 at 22:30; Stop 10/10/18 at 22:31; Status DC Piperacillin Sod/ Tazobactam Sod (Zosyn Per Pharmacy) 1 each PRN DAILY PRN MC SEE COMMENTS; Start 10/10/18 at 22:45 Pantoprazole Sodium 80 mg/ Sodium Chloride 100 ml @ 10 mls/hr Q10H IV Last a dministered on 10/12/18at 08:31; Start 10/10/18 at 23:30; Stop 10/12/18 at 14:57; Status DC Phytonadione 10 mg/Dextrose 51 ml @ 102 mls/hr 1X ONCE IV Last administered on 10/10/18at 23:46; Start 10/10/18 at 23:30; Stop 10/10/18 at 23:59; Status DC Octreotide Acetate 500 mcg/ Sodium Chloride 101 ml @ 0 mls/hr CONT PRN IV SEE I/O RECORD Last administered on 10/12/18at 08:32; Start 10/10/18 at 23:45; Stop 10/12/18 at 14:57; Status DC Sodium Bicarbonate 50 meq/Dextrose 1,050 ml @ 125 mls/hr 1X ONCE IV Last administered on 10/11/18at 00:01; Start 10/10/18 at 23:55; Stop 10/11/18 at 08:18; Status DC Piperacillin Sod/ Tazobactam Sod 2.25 gm/Sodium Chloride 50 ml @ 100 mls/hr Q6HRS IV Last administered on 10/11/18at 05:30; Start 10/11/18 at 06:00; Stop 10/11/18 at 08:25; Status DC Meropenem 500 mg/ Sodium Chloride 50 ml @ 100 mls/hr Q8HRS IV ; Start 10/11/18 at 14:00; Stop 10/11/18 at 14:00; Status DC Ondansetron HCl (Zofran) 4 mg 1X ONCE IV Last administered on 10/11/18at 06:41; Start 10/11/18 at 06:45; Stop 10/11/18 at 06:46; Status DC Thiamine HCl 100 mg/Dextrose 51 ml @ 102 mls/hr 1X ONCE IV Last administered on 10/11/18at 07:40; Start 10/11/18 at 07:00; Stop 10/11/18 at 07:29; Status DC Folic Acid (Folic Acid) 1 mg DAILY PO ; Start 10/11/18 at 09:00; Stop 10/12/18 at 09:03; Status DC Levofloxacin/ Dextrose 50 ml @ 50 mls/hr 1X ONCE IV Last administered on 10/11/18at 07:42; Start 10/11/18 at 07:00; Stop 10/11/18 at 07:59; Status DC Albuterol Sulfate (Ventolin Neb Soln) 2.5 mg PRN Q4HRS PRN NEB SHORTNESS OF BREATH; Start 10/11/18 at 07:15 Lorazepam (Ativan) 1 mg 1X ONCE IV Last administered on 10/11/18at 07:37; Start 10/11/18 at 07:30; Stop 10/11/18 at 09:35; Status DC Lorazepam (Ativan) 1 mg PRN Q3HRS PRN IV ANXIETY / AGITATION; Start 10/11/18 at 08:00; Stop 10/11/18 at 09:35; Status DC Piperacillin Sod/ Tazobactam Sod 2.25 gm/Sodium Chloride 50 ml @ 100 mls/hr Q8HRS IV Last administered on 10/13/18at 05:34; Start 10/11/18 at 14:00; Stop 10/13/18 at 08:15; Status DC Ondansetron HCl (Zofran) 4 mg PRN Q6HRS PRN IV NAUSEA/VOMITING; Start 10/11/18 at 08:45 Lactulose (Lactulose) 30 gm TID PO ; Start 10/11/18 at 09:30; Stop 10/11/18 at 11:25; Status DC Sodium Bicarbonate 50 meq/Dextrose 1,050 ml @ 60 mls/hr [id number] IV Last administered on 10/12/18at 02:21; Start 10/11/18 at 10:00; Stop 10/12/18 at 10:58; Status DC Dexmedetomidine HCl 200 mcg/ Sodium Chloride 50 ml @ 0 mls/hr CONT PRN IV PER PROTOCOL Last administered on 10/13/18at 07:33; Start 10/11/18 at 09:45 Sodium Chloride 500 ml @ 500 mls/hr 1X PRN PRN IV SEE COMMENTS; Start 10/11/18 at 09:45 Atropine Sulfate (ATROPINE 0.5mg SYRINGE) 0.5 mg PRN Q5MIN PRN IV SEE COMMENTS; Start 10/11/18 at 09:45 Sodium Bicarbonate (Sodium Bicarb Adult 8.4% Syr) 50 meq STK-MED ONCE .ROUTE ; Start 10/11/18 at 09:42; Stop 10/11/18 at 09:43; Status DC Sodium Bicarbonate (Sodium Bicarb Adult 8.4% Syr) 100 meq 1X ONCE IV Last administered on 10/11/18at 10:00; Start 10/11/18 at 10:00; Stop 10/11/18 at 10:01; Status DC Lactulose (Lactulose) 30 gm TID NE ; Start 10/11/18 at 12:00; Stop 10/11/18 at 13:06; Status DC Lidocaine/Sodium Bicarbonate (Buffered Lidocaine 1%) 3 ml STK-MED ONCE .ROUTE ; Start 10/11/18 at 12:34; Stop 10/11/18 at 12:35; Status DC Heparin Sodium (Porcine) (Heparin Sodium) 10,000 unit STK-MED ONCE .ROUTE ; Start 10/11/18 at 12:34; Stop 10/11/18 at 12:35; Status DC Lactulose (Lactulose) 200 gm TID NE Last administered on 10/11/18at 20:55; Start 10/11/18 at 14:00; Stop 10/12/18 at 09:22; Status DC Sodium Chloride 1,000 ml @ 1,000 mls/hr Q1H PRN IV hypotension; Start 10/11/18 at 13:06; Stop 10/11/18 at 19:05; Status DC Albumin Human 200 ml @ 200 mls/hr 1X PRN PRN IV Hypotension; Start 10/11/18 at 13:15; Stop 10/11/18 at 19:14; Status DC Sodium Chloride (Normal Saline Flush) 10 ml 1X PRN PRN IV AP catheter pack; Start 10/11/18 at 13:15; Stop 10/12/18 at 13:14; Status DC Sodium Chloride (Normal Saline Flush) 10 ml 1X PRN PRN IV LABORER HOISTING catheter pack; Start 10/11/18 at 13:15; Stop 10/12/18 at 13:14; Status DC Sodium Chloride 1,000 ml @ 400 mls/hr Q2H30M PRN IV PATENCY; Start 10/11/18 at 13:06; Stop 10/12/18 at 01:05; Status DC Info (PHARMACY MONITORING -- do not chart) 1 each PRN DAILY PRN MC SEE COMMENTS; Start 10/11/18 at 13:15; Status UNV Info (PHARMACY MONITORING -- do not chart) 1 each PRN DAILY PRN MC SEE COMMENTS; Start 10/11/18 at 13:15 Lidocaine/Sodium Bicarbonate (Buffered Lidocaine 1%) 6 ml 1X ONCE INJ Last administered on 10/11/18at 13:42; Start 10/11/18 at 13:45; Stop 10/11/18 at 13:46; Status DC Potassium Chloride/Water 50 ml @ 50 mls/hr 1X ONCE IV Last administered on 10/12/18at 09:30; Start 10/12/18 at 09:00; Stop 10/12/18 at 09:59; Status DC Lactulose (Lactulose) 200 gm PRN TID PRN NE CONFUSION Last administered on 10/12/18at 11:37; Start 10/12/18 at 09:30 Amino Acids/ Glycerin/ Electrolytes 1,000 ml @ 60 mls/hr [id number] IV Last administered on 10/13/18at 00:16; Start 10/12/18 at 10:00 Amino Acids/ Glycerin/ Electrolytes 1,000 ml @ As Directed STK-MED ONCE IV ; Start 10/12/18 at 09:58; Stop 10/12/18 at 09:59; Status DC Pantoprazole Sodium (PROTONIX VIAL for IV PUSH) 40 mg BID IVP Last administered on 10/13/18at 00:16; Start 10/12/18 at 21:00 Albumin Human 50 ml @ 50 mls/hr 1X ONCE IV Last administered on 10/12/18at 18:04; Start 10/12/18 at 18:00; Stop 10/12/18 at 18:59; Status DC Potassium Chloride/Water 100 ml @ 100 mls/hr Q1H IV Last administered on 10/13/18at 08:26; Start 10/13/18 at 07:00; Stop 10/13/18 at 10:59 Piperacillin Sod/ Tazobactam Sod 2.25 gm/Sodium Chloride 50 ml @ 100 mls/hr Q6HRS IV ; Start 10/13/18 at 12:00 Active Scripts Active Lactulose 20 Gm/30 Ml Solution 20 Gm PO PRN TID PRN 30 Days Klor-Con M20 (Potassium Chloride) 20 Meq Tab.er.prt 40 Meq PO DAILY 30 Days [Pantoprazole] 40 MG Tablet.dr 40 Mg PO DAILYAC 30 Days Hydroxyzine Pamoate 25 Mg Capsule 25 Mg PO PRN Q8HRS PRN 30 Days Aspirin Ec (Aspirin) 81 Mg Tablet.dr 81 Mg PO [id number] 30 Days [Diltiazem Hcl] 240 MG Cap.er.24h 240 Mg PO DAILY 30 Days Metoprolol Tartrate 25 Mg Tablet 25 Mg PO BID 30 Days Vitamin B-1 (Thiamine Mononitrate) 100 Mg Tablet 100 Mg PO DAILY Hydrocodone-Apap 7.5-325 (Hydrocodone Bit/Acetaminophen) 1 Each Tablet 1 Tab PO PRN Q3HRS PRN Folic Acid 1 Mg Tablet 1 Mg PO DAILY Reported Tums (Calcium Carbonate) 300 Mg Tab.chew 300 Mg PO TIDAC PRN Cyclobenzaprine Hcl 10 Mg Tablet 1 Tab PO QHS Gabapentin (Gabapentin) 300 Mg Capsule 300 Mg PO TID Vitals/I & O Vital Sign - Last 24 Hours 10/12/18 10/12/18 10/12/18 10/12/18 10:00 11:00 12:00 12:00 Temp 97.7 97.7 Pulse 80 77 72 Resp 9 10 10 B/P (MAP) 135/83 (100) 106/87 (93) 111/78 (89) Pulse Ox 94 95 96 O2 Delivery Nasal Cannula Nasal Cannula Nasal Cannula Nasal Cannula O2 Flow Rate 5.0 5.0 5.0 5.0 10/12/18 10/12/18 10/12/18 10/12/18 13:00 14:00 15:00 16:00 Pulse 68 83 87 Resp 10 9 10 B/P (MAP) 124/75 (91) 114/91 (99) 119/88 (98) Pulse Ox 95 97 98 O2 Delivery Nasal Cannula Nasal Cannula Nasal Cannula Nasal Cannula O2 Flow Rate 5.0 5.0 5.0 5.0 10/12/18 10/12/18 10/12/18 10/12/18 16:00 17:00 18:00 19:00 Temp 97.7 97.7 Pulse 75 102 99 79 Resp 10 11 9 10 B/P (MAP) 140/82 (101) 140/64 (89) 124/87 (99) 135/106 (116) Pulse Ox 97 97 95 95 O2 Delivery Nasal Cannula Nasal Cannula Nasal Cannula Nasal Cannula O2 Flow Rate 5.0 4.0 4.0 4.0 10/12/18 10/12/18 10/12/18 10/12/18 20:00 20:00 21:00 22:00 Temp 97.0 97.0 Pulse 99 111 96 Resp 10 12 12 B/P (MAP) 129/95 (106) 112/73 (86) 113/76 (88) Pulse Ox 85 95 95 O2 Delivery Nasal Cannula Nasal Cannula Venturi Mask Venturi Mask O2 Flow Rate 5.0 4.0 15.0 15.0 10/12/18 10/12/18 10/13/18 10/13/18 23:00 23:59 00:01 01:00 Temp 97.4 97.4 Pulse 96 96 96 Resp 14 12 14 B/P (MAP) 107/82 (90) 126/95 (105) 107/82 (90) Pulse Ox 95 95 95 O2 Delivery Venturi Mask Venturi Mask Venturi Mask Venturi Mask O2 Flow Rate 15.0 15.0 15.0 15.0 10/13/18 10/13/18 10/13/18 10/13/18 02:00 03:00 04:00 04:00 Temp 97.8 97.8 Pulse 88 82 85 Resp 12 11 12 B/P (MAP) 131/83 (99) 104/75 (85) 118/76 (90) Pulse Ox 95 98 95 O2 Delivery Venturi Mask Venturi Mask Venturi Mask Venturi Mask O2 Flow Rate 15.0 15.0 15.0 15.0 10/13/18 10/13/18 05:00 06:00 Pulse 93 105 Resp 12 12 B/P (MAP) 120/80 (93) 112/84 (93) Pulse Ox 98 98 O2 Delivery Venturi Mask Nasal Cannula O2 Flow Rate 15.0 5.0 Intake and Output 10/12/18 10/12/18 10/13/18 15:00 23:00 07:00 Intake Total 1021 ml Output Total 1200 ml 1200 ml 665 ml Balance -1200 ml -179 ml -665 ml JESU MORENO MD October 13, 2018 09:52
--- NOTE | 2018-10-13 09:56 | PDOC ---
PULMONARY PROGRESS NOTES Subjective starting to have some improvement in mental status Vitals Vital Signs Date Time Temp Pulse Resp B/P (MAP) Pulse Ox O2 Delivery O2 Flow Rate FiO2 10/13/18 06:00 105 12 112/84 (93) 98 Nasal Cannula 5.0 10/13/18 04:00 97.8 97.8 General: Lethargic Lungs: Other (decrease bs) Cardiovascular: S1 Abdomen: Soft Extremities: No Edema Skin: Warm Labs Laboratory Tests Test 10/11/18 11:25 10/11/18 19:30 10/12/18 00:05 10/12/18 05:00 White Blood Count 9.7 x10^3/uL (4.0-11.0) 6.6 x10^3/uL (4.0-11.0) 7.9 x10^3/uL (4.0-11.0) 8.0 x10^3/uL (4.0-11.0) Red Blood Count 3.96 x10^6/uL (4.30-5.70) 3.89 x10^6/uL (4.30-5.70) 4.03 x10^6/uL (4.30-5.70) 3.87 x10^6/uL (4.30-5.70) Hemoglobin 8.2 g/dL (13.0-17.5) 8.2 g/dL (13.0-17.5) 8.3 g/dL (13.0-17.5) 8.2 g/dL (13.0-17.5) Hematocrit 26.8 % (39.0-53.0) 25.9 % (39.0-53.0) 27.0 % (39.0-53.0) 25.8 % (39.0-53.0) Mean Corpuscular Volume 68 fL (79-100) 66 fL (79-100) 67 fL (79-100) 67 fL (79-100) Mean Corpuscular Hemoglobin 21 pg (25-35) 21 pg (25-35) 21 pg (25-35) 21 pg (25-35) Mean Corpuscular Hemoglobin Concent 31 g/dL (31-37) 32 g/dL (31-37) 31 g/dL (31-37) 32 g/dL (31-37) Red Cell Distribution Width 27.2 % (11.5-14.5) 28.1 % (11.5-14.5) 27.7 % (11.5-14.5) 27.3 % (11.5-14.5) Platelet Count 123 x10^3/uL (140-400) 98 x10^3/uL (140-400) 96 x10^3/uL (140-400) 90 x10^3/uL (140-400) Neutrophils (%) (Auto) 87 % (31-73) 85 % (31-73) 86 % (31-73) 86 % (31-73) Lymphocytes (%) (Auto) 8 % (24-48) 11 % (24-48) 10 % (24-48) 10 % (24-48) Monocytes (%) (Auto) 5 % (0-9) 3 % (0-9) 4 % (0-9) 4 % (0-9) Eosinophils (%) (Auto) 0 % (0-3) 1 % (0-3) 0 % (0-3) 0 % (0-3) Basophils (%) (Auto) 0 % (0-3) 0 % (0-3) 0 % (0-3) 0 % (0-3) Neutrophils # (Auto) 8.5 x10^3uL (1.8-7.7) 5.6 x10^3uL (1.8-7.7) 6.8 x10^3uL (1.8-7.7) 6.9 x10^3uL (1.8-7.7) Lymphocytes # (Auto) 0.7 x10^3/uL (1.0-4.8) 0.7 x10^3/uL (1.0-4.8) 0.8 x10^3/uL (1.0-4.8) 0.8 x10^3/uL (1.0-4.8) Monocytes # (Auto) 0.5 x10^3/uL (0.0-1.1) 0.2 x10^3/uL (0.0-1.1) 0.3 x10^3/uL (0.0-1.1) 0.3 x10^3/uL (0.0-1.1) Eosinophils # (Auto) 0.0 x10^3/uL (0.0-0.7) 0.0 x10^3/uL (0.0-0.7) 0.0 x10^3/uL (0.0-0.7) 0.0 x10^3/uL (0.0-0.7) Basophils # (Auto) 0.0 x10^3/uL (0.0-0.2) 0.0 x10^3/uL (0.0-0.2) 0.0 x10^3/uL (0.0-0.2) 0.0 x10^3/uL (0.0-0.2) Lactic Acid Level 4.5 mmol/L (0.4-2.0) Prothrombin Time 40.4 SEC (11.7-14.0) Prothromb Time International Ratio 4.2 (0.8-1.1) Sodium Level 137 mmol/L (136-145) Potassium Level 3.1 mmol/L (3.5-5.1) Chloride Level 98 mmol/L (98-107) Carbon Dioxide Level 32 mmol/L (21-32) Anion Gap 7 (6-14) Blood Urea Nitrogen 35 mg/dL (8-26) Creatinine 2.0 mg/dL (0.7-1.3) Estimated GFR (Cockcroft-Gault) 34.0 BUN/Creatinine Ratio 18 (6-20) Glucose Level 177 mg/dL (70-99) Calcium Level 7.7 mg/dL (8.5-10.1) Total Bilirubin 3.2 mg/dL (0.2-1.0) Aspartate Amino Transf (AST/SGOT) 3722 U/L (15-37) Alanine Aminotransferase (ALT/SGPT) 2141 U/L (16-63) Alkaline Phosphatase 106 U/L (46-116) Total Protein 5.2 g/dL (6.4-8.2) Albumin 2.4 g/dL (3.4-5.0) Albumin/Globulin Ratio 0.9 (1.0-1.7) Test 10/13/18 05:35 Prothrombin Time 24.2 SEC (11.7-14.0) Prothromb Time International Ratio 2.2 (0.8-1.1) Fibrinogen 193 mg/dL (200-440) Sodium Level 135 mmol/L (136-145) Potassium Level 2.9 mmol/L (3.5-5.1) Chloride Level 96 mmol/L (98-107) Carbon Dioxide Level 32 mmol/L (21-32) Anion Gap 7 (6-14) Blood Urea Nitrogen 36 mg/dL (8-26) Creatinine 1.6 mg/dL (0.7-1.3) Estimated GFR (Cockcroft-Gault) 44.0 Glucose Level 127 mg/dL (70-99) Calcium Level 7.8 mg/dL (8.5-10.1) Laboratory Tests Test 10/13/18 05:35 Prothrombin Time 24.2 SEC (11.7-14.0) Prothromb Time International Ratio 2.2 (0.8-1.1) Fibrinogen 193 mg/dL (200-440) Sodium Level 135 mmol/L (136-145) Potassium Level 2.9 mmol/L (3.5-5.1) Chloride Level 96 mmol/L (98-107) Carbon Dioxide Level 32 mmol/L (21-32) Anion Gap 7 (6-14) Blood Urea Nitrogen 36 mg/dL (8-26) Creatinine 1.6 mg/dL (0.7-1.3) Estimated GFR (Cockcroft-Gault) 44.0 Glucose Level 127 mg/dL (70-99) Calcium Level 7.8 mg/dL (8.5-10.1) Medications Active Scripts Medications Dose Route/Sig Max Daily Dose Days Date Category Lactulose 20 Gm/30 Ml Solution 20 Gm PO PRN TID PRN 30 10/07/18 Rx Tums (Calcium Carbonate) 300 Mg Tab.chew 300 Mg PO TIDAC PRN 10/06/18 Reported Cyclobenzaprine Hcl 10 Mg Tablet 1 Tab PO QHS 10/06/18 Reported Gabapentin (Gabapentin) 300 Mg Capsule 300 Mg PO TID 10/06/18 Reported Klor-Con M20 (Potassium Chloride) 20 Meq Tab.er.prt 40 Meq PO DAILY 30 09/13/18 Rx [Pantoprazole] 40 MG Tablet.dr 40 Mg PO DAILYAC 30 09/13/18 Rx Hydroxyzine Pamoate 25 Mg Capsule 25 Mg PO PRN Q8HRS PRN 30 09/13/18 Rx Aspirin Ec (Aspirin) 81 Mg Tablet.dr 81 Mg PO DAILYWBKFT 30 09/13/18 Rx [Diltiazem Hcl] 240 MG Cap.er.24h 240 Mg PO DAILY 30 09/13/18 Rx Metoprolol Tartrate 25 Mg Tablet 25 Mg PO BID 30 09/13/18 Rx Vitamin B-1 (Thiamine Mononitrate) 100 Mg Tablet 100 Mg PO DAILY 02/07/17 Rx Hydrocodone-Apap 7.5-325 (Hydrocodone Bit/Acetaminophen) 1 Each Tablet 1 Tab PO PRN Q3HRS PRN 02/07/17 Rx Folic Acid 1 Mg Tablet 1 Mg PO DAILY 02/07/17 Rx Impression . 1. Acute hypoxic respiratory failure with multisystem organ involvement. The etiology of respiratory failure secondary to sepsis and acute liver failure. 2. Significantly abnormal liver function tests related to acute hepatic failure in a patient who has hepatitis C. 3. Acute blood loss anemia secondary to gastrointestinal bleed. 4. Coagulopathy with high INR of 5.2 related to liver disease and sepsis. 5. Thrombocytopenia. 6. Abnormal chest x-ray consistent with pneumonia. 7. Recently abnormal echo with [id number] mitral regurgitation and ejection fraction of 50%. 8. Severe metabolic acidosis secondary to lactic acidosis resulting from sepsis along with underlying liver failure. 9. Possible underlying COPD/tobaccoism. 10. Hyperkalemia. 11. NATHANIEL. ? Hepato-renal syndrome.improving Plan . 1. The patient remains critically ill but improving. At this time, I would continue with present oxygen along with p.r.n. BiPAP if needed. 2. Continue broad-spectrum antibiotics and follow ID recommendation. 3. Follow liver function tests and follow GI recommendations. 4. Correct coagulopathy.improving 5. Status post packed RBCs and follow hemoglobin closely. 6. Follow GI recommendations. 7. making urine ,may not need dialysis. 8. Severe coagulopathy.improving 9. Likely pneumonia. 10. Continued broad-spectrum antibiotic. 11. DNR/DNI 12. off bicarb drip 13. PPN 14. dc femoral line DNR/DNI. RAMIREZ RIVERS MD October 13, 2018 09:56
--- NOTE | 2018-10-13 10:31 | PDOC ---
Renal-Progress Notes Subjective Notes Notes CONFUSED History of Present Illness Hx of present illness STABLE Vitals Vitals Vital Signs Date Time Temp Pulse Resp B/P (MAP) Pulse Ox O2 Delivery O2 Flow Rate FiO2 10/13/18 06:00 105 12 112/84 (93) 98 Nasal Cannula 5.0 10/13/18 04:00 97.8 97.8 Weight Weight [ ] I.O. Intake and Output Intake and Output 10/13/18 07:00 Intake Total 1071 ml Output Total 3065 ml Balance -1994 ml Intake IV Total 1071 ml Output Urine Total 3065 ml # Bowel Movements 3 Labs Labs Laboratory Tests Test 10/13/18 05:35 Prothrombin Time 24.2 SEC (11.7-14.0) Prothromb Time International Ratio 2.2 (0.8-1.1) Fibrinogen 193 mg/dL (200-440) Sodium Level 135 mmol/L (136-145) Potassium Level 2.9 mmol/L (3.5-5.1) Chloride Level 96 mmol/L (98-107) Carbon Dioxide Level 32 mmol/L (21-32) Anion Gap 7 (6-14) Blood Urea Nitrogen 36 mg/dL (8-26) Creatinine 1.6 mg/dL (0.7-1.3) Estimated GFR (Cockcroft-Gault) 44.0 Glucose Level 127 mg/dL (70-99) Calcium Level 7.8 mg/dL (8.5-10.1) Micro Micro Microbiology 10/10/18 Blood Culture - Preliminary, Resulted NO GROWTH AFTER 2 DAYS Review of Systems Constitutional: yes: other (CONFUSED) Physical Exam General Appearance: no apparent distress Skin: warm Respiratory: decreased breath sounds Heart: S1S2 Abdomen: soft, bowel sounds present Genitourinary: bladder flat Extremities: pulses present Assessment Assessment IMP NATHANIEL-IMPROVING UO AND CLEARANCE MET ACIDOSIS-RESOLVED MET ENCEPHALOPATHY SEPSIS ANEMIA AFIB RVR LIVER FAILURE WITH HEP C COAGULOPATHY HYPOKALEMIA PLAN CONT HYDRATION PPN ANTIBIOTICS PRESSORS NEEDED NO MORE DIALYSIS PLANNED REPLACE SUJATHA STEELE MD October 13, 2018 10:31
--- NOTE | 2018-10-13 10:40 | PDOC ---
[employer] PROGRESS NOTE Chief Complaint Chief Complaint Found down by a neighbor with Transaminaseitis and mental status change (AST 4514, ALT 1550, Lactate 14.9. WBC 14.7, Hb 6.5 with bright red blood per rectum ) History of Present Illness History of Present Illness Patient seen and examined in the intensive care unit He is a sedated with Precedex I discussed the case with his nurse I reviewed the chart Vitals Vitals Vital Signs Date Time Temp Pulse Resp B/P (MAP) Pulse Ox O2 Delivery O2 Flow Rate FiO2 10/13/18 06:00 105 12 112/84 (93) 98 Nasal Cannula 5.0 10/13/18 04:00 97.8 97.8 Physical Exam Physical Exam GENERAL: Sedated HENT: PERRL. 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 Nontunneled RIJ/HDC (10/11) clean Left groin CVC General: Other (sedated with Precedex) Heart: Regular rate, Normal S1, Other (irregularly irregular) Lungs: Clear, Other (decrease bs) Abdomen: Normal bowel sounds Extremities: No clubbing Skin: No breakdown, No significant lesion Labs LABS Laboratory Tests Test 10/13/18 05:35 Prothrombin Time 24.2 SEC (11.7-14.0) Prothromb Time International Ratio 2.2 (0.8-1.1) Fibrinogen 193 mg/dL (200-440) Sodium Level 135 mmol/L (136-145) Potassium Level 2.9 mmol/L (3.5-5.1) Chloride Level 96 mmol/L (98-107) Carbon Dioxide Level 32 mmol/L (21-32) Anion Gap 7 (6-14) Blood Urea Nitrogen 36 mg/dL (8-26) Creatinine 1.6 mg/dL (0.7-1.3) Estimated GFR (Cockcroft-Gault) 44.0 Glucose Level 127 mg/dL (70-99) Calcium Level 7.8 mg/dL (8.5-10.1) Review of Systems Review of Systems Unable to obtain Assessment and Plan Assessmemt and Plan Problems Medical Problems: (1) Lactic acidosis Status: Acute (2) Liver failure Status: Acute (3) Pneumonia Status: Acute (4) Renal failure Status: Acute -Multifactorial acute hypoxic respiratory failure with multisystem organ involvement. - Abnormal liver function tests related to acute hepatic failure -Hep C -EtOH -Acute blood loss anemia secondary to gastrointestinal bleed. - Coagulopathy with high INR of 5.2 related to liver disease and sepsis. -Thrombocytopenia. -Pneumonia. -Elective right disturbance -Probable COPD -Possible hepatorenal syndrome Plan Plan . ICU monitoring Broad-spectrum antibiotics and follow ID recommendation. Follow liver function tests and follow GI recommendations. Status post packed RBCs and follow hemoglobin closely. DNR/DNI Frequent labs Home meds when possible Prognosis guarded Will follow device sales consultant's recommendations including infectious disease cardiology nephrology pulmonary and neurology Comment Review of Relevant I have reviewed the following items daysi (where applicable) has been applied. Labs Laboratory Tests Test 10/11/18 11:25 10/11/18 19:30 10/12/18 00:05 10/12/18 05:00 White Blood Count 9.7 x10^3/uL (4.0-11.0) 6.6 x10^3/uL (4.0-11.0) 7.9 x10^3/uL (4.0-11.0) 8.0 x10^3/uL (4.0-11.0) Red Blood Count 3.96 x10^6/uL (4.30-5.70) 3.89 x10^6/uL (4.30-5.70) 4.03 x10^6/uL (4.30-5.70) 3.87 x10^6/uL (4.30-5.70) Hemoglobin 8.2 g/dL (13.0-17.5) 8.2 g/dL (13.0-17.5) 8.3 g/dL (13.0-17.5) 8.2 g/dL (13.0-17.5) Hematocrit 26.8 % (39.0-53.0) 25.9 % (39.0-53.0) 27.0 % (39.0-53.0) 25.8 % (39.0-53.0) Mean Corpuscular Volume 68 fL (79-100) 66 fL (79-100) 67 fL (79-100) 67 fL (79-100) Mean Corpuscular Hemoglobin 21 pg (25-35) 21 pg (25-35) 21 pg (25-35) 21 pg (25-35) Mean Corpuscular Hemoglobin Concent 31 g/dL (31-37) 32 g/dL (31-37) 31 g/dL (31-37) 32 g/dL (31-37) Red Cell Distribution Width 27.2 % (11.5-14.5) 28.1 % (11.5-14.5) 27.7 % (11.5-14.5) 27.3 % (11.5-14.5) Platelet Count 123 x10^3/uL (140-400) 98 x10^3/uL (140-400) 96 x10^3/uL (140-400) 90 x10^3/uL (140-400) Neutrophils (%) (Auto) 87 % (31-73) 85 % (31-73) 86 % (31-73) 86 % (31-73) Lymphocytes (%) (Auto) 8 % (24-48) 11 % (24-48) 10 % (24-48) 10 % (24-48) Monocytes (%) (Auto) 5 % (0-9) 3 % (0-9) 4 % (0-9) 4 % (0-9) Eosinophils (%) (Auto) 0 % (0-3) 1 % (0-3) 0 % (0-3) 0 % (0-3) Basophils (%) (Auto) 0 % (0-3) 0 % (0-3) 0 % (0-3) 0 % (0-3) Neutrophils # (Auto) 8.5 x10^3uL (1.8-7.7) 5.6 x10^3uL (1.8-7.7) 6.8 x10^3uL (1.8-7.7) 6.9 x10^3uL (1.8-7.7) Lymphocytes # (Auto) 0.7 x10^3/uL (1.0-4.8) 0.7 x10^3/uL (1.0-4.8) 0.8 x10^3/uL (1.0-4.8) 0.8 x10^3/uL (1.0-4.8) Monocytes # (Auto) 0.5 x10^3/uL (0.0-1.1) 0.2 x10^3/uL (0.0-1.1) 0.3 x10^3/uL (0.0-1.1) 0.3 x10^3/uL (0.0-1.1) Eosinophils # (Auto) 0.0 x10^3/uL (0.0-0.7) 0.0 x10^3/uL (0.0-0.7) 0.0 x10^3/uL (0.0-0.7) 0.0 x10^3/uL (0.0-0.7) Basophils # (Auto) 0.0 x10^3/uL (0.0-0.2) 0.0 x10^3/uL (0.0-0.2) 0.0 x10^3/uL (0.0-0.2) 0.0 x10^3/uL (0.0-0.2) Lactic Acid Level 4.5 mmol/L (0.4-2.0) Plasma/Serum Osmolality 293 mOsmol/kg (280-301) Prothrombin Time 40.4 SEC (11.7-14.0) Prothromb Time International Ratio 4.2 (0.8-1.1) Sodium Level 137 mmol/L (136-145) Potassium Level 3.1 mmol/L (3.5-5.1) Chloride Level 98 mmol/L (98-107) Carbon Dioxide Level 32 mmol/L (21-32) Anion Gap 7 (6-14) Blood Urea Nitrogen 35 mg/dL (8-26) Creatinine 2.0 mg/dL (0.7-1.3) Estimated GFR (Cockcroft-Gault) 34.0 BUN/Creatinine Ratio 18 (6-20) Glucose Level 177 mg/dL (70-99) Calcium Level 7.7 mg/dL (8.5-10.1) Total Bilirubin 3.2 mg/dL (0.2-1.0) Aspartate Amino Transf (AST/SGOT) 3722 U/L (15-37) Alanine Aminotransferase (ALT/SGPT) 2141 U/L (16-63) Alkaline Phosphatase 106 U/L (46-116) Total Protein 5.2 g/dL (6.4-8.2) Albumin 2.4 g/dL (3.4-5.0) Albumin/Globulin Ratio 0.9 (1.0-1.7) Test 10/13/18 05:35 Prothrombin Time 24.2 SEC (11.7-14.0) Prothromb Time International Ratio 2.2 (0.8-1.1) Fibrinogen 193 mg/dL (200-440) Sodium Level 135 mmol/L (136-145) Potassium Level 2.9 mmol/L (3.5-5.1) Chloride Level 96 mmol/L (98-107) Carbon Dioxide Level 32 mmol/L (21-32) Anion Gap 7 (6-14) Blood Urea Nitrogen 36 mg/dL (8-26) Creatinine 1.6 mg/dL (0.7-1.3) Estimated GFR (Cockcroft-Gault) 44.0 Glucose Level 127 mg/dL (70-99) Calcium Level 7.8 mg/dL (8.5-10.1) Laboratory Tests Test 10/13/18 05:35 Prothrombin Time 24.2 SEC (11.7-14.0) Prothromb Time International Ratio 2.2 (0.8-1.1) Fibrinogen 193 mg/dL (200-440) Sodium Level 135 mmol/L (136-145) Potassium Level 2.9 mmol/L (3.5-5.1) Chloride Level 96 mmol/L (98-107) Carbon Dioxide Level 32 mmol/L (21-32) Anion Gap 7 (6-14) Blood Urea Nitrogen 36 mg/dL (8-26) Creatinine 1.6 mg/dL (0.7-1.3) Estimated GFR (Cockcroft-Gault) 44.0 Glucose Level 127 mg/dL (70-99) Calcium Level 7.8 mg/dL (8.5-10.1) Microbiology 10/10/18 Blood Culture - Preliminary, Resulted NO GROWTH AFTER 2 DAYS Medications Current Medications Sodium Chloride 1,000 ml @ 1,000 mls/hr 1X ONCE IV Last administered on 10/10/18at 22:43; Start 10/10/18 at 22:00; Stop 10/10/18 at 22:59; Status DC Sodium Chloride 1,000 ml @ 1,000 mls/hr 1X ONCE IV Last administered on 10/10/18at 22:42; Start 10/10/18 at 22:00; Stop 10/10/18 at 22:59; Status DC Piperacillin Sod/ Tazobactam Sod (Zosyn Per Pharmacy) 1 each PRN DAILY PRN MC SEE COMMENTS; Start 10/10/18 at 22:00; Stop 10/10/18 at 22:33; Status DC Piperacillin Sod/ Tazobactam Sod 3.375 gm/Sodium Chloride 50 ml @ 100 mls/hr 1X ONCE IV Last administered on 10/10/18at 22:44; Start 10/10/18 at 22:15; Stop 10/10/18 at 22:44; Status DC Sodium Bicarbonate (Sodium Bicarb Adult 8.4% Syr) 50 meq 1X ONCE IV Last administered on 10/10/18at 22:43; Start 10/10/18 at 22:30; Stop 10/10/18 at 22:31; Status DC Calcium Gluconate (Calcium Gluconate) 1,000 mg 1X ONCE IVP Last administered on 10/10/18at 22:43; Start 10/10/18 at 22:30; Stop 10/10/18 at 22:31; Status DC Piperacillin Sod/ Tazobactam Sod (Zosyn Per Pharmacy) 1 each PRN DAILY PRN MC SEE COMMENTS; Start 10/10/18 at 22:45 Pantoprazole Sodium 80 mg/ Sodium Chloride 100 ml @ 10 mls/hr Q10H IV Last administered on 10/12/18at 08:31; Start 10/10/18 at 23:30; Stop 10/12/18 at 14:57; Status DC Phytonadione 10 mg/Dextrose 51 ml @ 102 mls/hr 1X ONCE IV Last administered on 10/10/18at 23:46; Start 10/10/18 at 23:30; Stop 10/10/18 at 23:59; Status DC Octreotide Acetate 500 mcg/ Sodium Chloride 101 ml @ 0 mls/hr CONT PRN IV SEE I/O RECORD Last administered on 10/12/18at 08:32; Start 10/10/18 at 23:45; Stop 10/12/18 at 14:57; Status DC Sodium Bicarbonate 50 meq/Dextrose 1,050 ml @ 125 mls/hr 1X ONCE IV Last administered on 10/11/18at 00:01; Start 10/10/18 at 23:55; Stop 10/11/18 at 08:18; Status DC Piperacillin Sod/ Tazobactam Sod 2.25 gm/Sodium Chloride 50 ml @ 100 mls/hr Q6HRS IV Last administered on 10/11/18at 05:30; Start 10/11/18 at 06:00; Stop 10/11/18 at 08:25; Status DC Meropenem 500 mg/ Sodium Chloride 50 ml @ 100 mls/hr Q8HRS IV ; Start 10/11/18 at 14:00; Stop 10/11/18 at 14:00; Status DC Ondansetron HCl (Zofran) 4 mg 1X ONCE IV Last administered on 10/11/18at 06:41; Start 10/11/18 at 06:45; Stop 10/11/18 at 06:46; Status DC Thiamine HCl 100 mg/Dextrose 51 ml @ 102 mls/hr 1X ONCE IV Last administered on 10/11/18at 07:40; Start 10/11/18 at 07:00; Stop 10/11/18 at 07:29; Status DC Folic Acid (Folic Acid) 1 mg DAILY PO ; Start 10/11/18 at 09:00; Stop 10/12/18 at 09:03; Status DC Levofloxacin/ Dextrose 50 ml @ 50 mls/hr 1X ONCE IV Last administered on 10/11at 07:42; Start 10/11/18 at 07:00; Stop 10/11/18 at 07:59; Status DC Albuterol Sulfate (Ventolin Neb Soln) 2.5 mg PRN Q4HRS PRN NEB SHORTNESS OF BREATH; Start 10/11/18 at 07:15 Lorazepam (Ativan) 1 mg 1X ONCE IV Last administered on 10/11/18at 07:37; Start 10/11/18 at 07:30; Stop 10/11/18 at 09:35; Status DC Lorazepam (Ativan) 1 mg PRN Q3HRS PRN IV ANXIETY / AGITATION; Start 10/11/18 at 08:00; Stop 10/11/18 at 09:35; Status DC Piperacillin Sod/ Tazobactam Sod 2.25 gm/Sodium Chloride 50 ml @ 100 mls/hr Q8H RS IV Last administered on 10/13/18at 05:34; Start 10/11/18 at 14:00; Stop 10/13/18 at 08:15; Status DC Ondansetron HCl (Zofran) 4 mg PRN Q6HRS PRN IV NAUSEA/VOMITING; Start 10/11/18 at 08:45 Lactulose (Lactulose) 30 gm TID PO ; Start 10/11/18 at 09:30; Stop 10/11/18 at 11:25; Status DC Sodium Bicarbonate 50 meq/Dextrose 1,050 ml @ 60 mls/hr [id number] IV Last administered on 10/12/18at 02:21; Start 10/11/18 at 10:00; Stop 10/12/18 at 10:58; Status DC Dexmedetomidine HCl 200 mcg/ Sodium Chloride 50 ml @ 0 mls/hr CONT PRN IV PER PROTOCOL Last administered on 10/13/18at 07:33; Start 10/11/18 at 09:45 Sodium Chloride 500 ml @ 500 mls/hr 1X PRN PRN IV SEE COMMENTS; Start 10/11/18 at 09:45 Atropine Sulfate (ATROPINE 0.5mg SYRINGE) 0.5 mg PRN Q5MIN PRN IV SEE COMMENTS; Start 10/11/18 at 09:45 Sodium Bicarbonate (Sodium Bicarb Adult 8.4% Syr) 50 meq STK-MED ONCE .ROUTE ; Start 10/11/18 at 09:42; Stop 10/11/18 at 09:43; Status DC Sodium Bicarbonate (Sodium Bicarb Adult 8.4% Syr) 100 meq 1X ONCE IV Last administered on 10/11/18at 10:00; Start 10/11/18 at 10:00; Stop 10/11/18 at 10:01; Status DC Lactulose (Lactulose) 30 gm TID NC ; Start 10/11/18 at 12:00; Stop 10/11/18 at 13:06; Status DC Lidocaine/Sodium Bicarbonate (Buffered Lidocaine 1%) 3 ml STK-MED ONCE .ROUTE ; Start 10/11/18 at 12:34; Stop 10/11/18 at 12:35; Status DC Heparin Sodium (Porcine) (Heparin Sodium) 10,000 unit STK-MED ONCE .ROUTE ; Start 10/11/18 at 12:34; Stop 10/11/18 at 12:35; Status DC Lactulose (Lactulose) 200 gm TID NC Last administered on 10/11/18at 20:55; Start 10/11/18 at 14:00; Stop 10/12/18 at 09:22; Status DC Sodium Chloride 1,000 ml @ 1,000 mls/hr Q1H PRN IV hypotension; Start 10/11/18 at 13:06; Stop 10/11/18 at 19:05; Status DC Albumin Human 200 ml @ 200 mls/hr 1X PRN PRN IV Hypotension; Start 10/11/18 at 13:15; Stop 10/11/18 at 19:14; Status DC Sodium Chloride (Normal Saline Flush) 10 ml 1X PRN PRN IV AP catheter pack; Start 10/11/18 at 13:15; Stop 10/12/18 at 13:14; Status DC Sodium Chloride (Normal Saline Flush) 10 ml 1X PRN PRN IV BANQUET STEWARDESS catheter pack; Start 10/11/18 at 13:15; Stop 10/12/18 at 13:14; Status DC Sodium Chloride 1,000 ml @ 400 mls/hr Q2H30M PRN IV PATENCY; Start 10/11/18 at 13:06; Stop 10/12/18 at 01:05; Status DC Info (PHARMACY MONITORING -- do not chart) 1 each PRN DAILY PRN MC SEE DEEPAK TS; Start 10/11/18 at 13:15; Status UNV Info (PHARMACY MONITORING -- do not chart) 1 each PRN DAILY PRN MC SEE COMMENTS; Start 10/11/18 at 13:15 Lidocaine/Sodium Bicarbonate (Buffered Lidocaine 1%) 6 ml 1X ONCE INJ Last administered on 10/11/18at 13:42; Start 10/11/18 at 13:45; Stop 10/11/18 at 13:46; Status DC Potassium Chloride/Water 50 ml @ 50 mls/hr 1X ONCE IV Last administered on 10/12/18at 09:30; Start 10/12/18 at 09:00; Stop 10/12/18 at 09:59; Status DC Lactulose (Lactulose) 200 gm PRN TID PRN NC CONFUSION Last administered on 10/12/18at 11:37; Start 10/12/18 at 09:30 Amino Acids/ Glycerin/ Electrolytes 1,000 ml @ 60 mls/hr [id number] IV Last administered on 10/13/18at 00:16; Start 10/12/18 at 10:00 Amino Acids/ Glycerin/ Electrolytes 1,000 ml @ As Directed STK-MED ONCE IV ; Start 10/12/18 at 09:58; Stop 10/12/18 at 09:59; Status DC Pantoprazole Sodium (PROTONIX VIAL for IV PUSH) 40 mg BID IVP Last administered on 10/13/18at 09:50; Start 10/12/18 at 21:00 Albumin Human 50 ml @ 50 mls/hr 1X ONCE IV Last administered on 10/12/18at 18:04; Start 10/12/18 at 18:00; Stop 10/12/18 at 18:59; Status DC Potassium Chloride/Water 100 ml @ 100 mls/hr Q1H IV Last administered on 10/13/18at 09:48; Start 10/13/18 at 07:00; Stop 10/13/18 at 10:59 Piperacillin Sod/ Tazobactam Sod 2.25 gm/Sodium Chloride 50 ml @ 100 mls/hr Q6HRS IV ; Start 10/13/18 at 12:00 Active Scripts Active Lactulose 20 Gm/30 Ml Solution 20 Gm PO PRN TID PRN 30 Days Klor-Con M20 (Potassium Chloride) 20 Meq Tab.er.prt 40 Meq PO DAILY 30 Days [Pantoprazole] 40 MG Tablet.dr 40 Mg PO DAILYAC 30 Days Hydroxyzine Pamoate 25 Mg Capsule 25 Mg PO PRN Q8HRS PRN 30 Days Aspirin Ec (Aspirin) 81 Mg Tablet.dr 81 Mg PO DAILYWBKFT 30 Days [Diltiazem Hcl] 240 MG Cap.er.24h 240 Mg PO DAILY 30 Days Metoprolol Tartrate 25 Mg Tablet 25 Mg PO BID 30 Days Vitamin B-1 (Thiamine Mononitrate) 100 Mg Tablet 100 Mg PO DAILY Hydrocodone-Apap 7.5-325 (Hydrocodone Bit/Acetaminophen) 1 Each Tablet 1 Tab PO PRN Q3HRS PRN Folic Acid 1 Mg Tablet 1 Mg PO DAILY Reported Tums (Calcium Carbonate) 300 Mg Tab.chew 300 Mg PO TIDAC PRN Cyclobenzaprine Hcl 10 Mg Tablet 1 Tab PO QHS Gabapentin (Gabapentin) 300 Mg Capsule 300 Mg PO TID Vitals/I & O Vital Sign - Last 24 Hours 10/12/18 10/12/18 10/12/18 10/12/18 11:00 12:00 12:00 13:00 Temp 97.7 97.7 Pulse 77 72 68 Resp 10 10 10 B/P (MAP) 106/87 (93) 111/78 (89) 124/75 (91) Pulse Ox 95 96 95 O2 Delivery Nasal Cannula Nasal Cannula Nasal Cannula Nasal Cannula O2 Flow Rate 5.0 5.0 5.0 5.0 10/12/18 10/12/18 10/12/18 10/12/18 14:00 15:00 16:00 16:00 Temp 97.7 97.7 Pulse 83 87 75 Resp 9 10 10 B/P (MAP) 114/91 (99) 119/88 (98) 140/82 (101) Pulse Ox 97 98 97 O2 Delivery Nasal Cannula Nasal Cannula Nasal Cannula Nasal Cannula O2 Flow Rate 5.0 5.0 5.0 5.0 10/12/18 10/12/18 10/12/18 10/12/18 17:00 18:00 19:00 20:00 Pulse 102 99 79 Resp 11 9 10 B/P (MAP) 140/64 (89) 124/87 (99) 135/106 (116) Pulse Ox 97 95 95 O2 Delivery Nasal Cannula Nasal Cannula Nasal Cannula Nasal Cannula O2 Flow Rate 4.0 4.0 4.0 5.0 10/12/18 10/12/18 10/12/18 10/12/18 20:00 21:00 22:00 23:00 Temp 97.0 97.0 Pulse 99 111 96 96 Resp 10 12 12 14 B/P (MAP) 129/95 (106) 112/73 (86) 113/76 (88) 107/82 (90) Pulse Ox 85 95 95 95 O2 Delivery Nasal Cannula Venturi Mask Venturi Mask Venturi Mask O2 Flow Rate 4.0 15.0 15.0 15.0 10/12/18 10/13/18 10/13/18 10/13/18 23:59 00:01 01:00 02:00 Temp 97.4 97.4 Pulse 96 96 88 Resp 12 14 12 B/P (MAP) 126/95 (105) 107/82 (90) 131/83 (99) Pulse Ox 95 95 95 O2 Delivery Venturi Mask Venturi Mask Venturi Mask Venturi Mask O2 Flow Rate 15.0 15.0 15.0 15.0 10/13/18 10/13/18 10/13/18 10/13/18 03:00 04:00 04:00 05:00 Temp 97.8 97.8 Pulse 82 85 93 Resp 11 12 12 B/P (MAP) 104/75 (85) 118/76 (90) 120/80 (93) Pulse Ox 98 95 98 O2 Delivery Venturi Mask Venturi Mask Venturi Mask Venturi Mask O2 Flow Rate 15.0 15.0 15.0 15.0 10/13/18 06:00 Pulse 105 Resp 12 B/P (MAP) 112/84 (93) Pulse Ox 98 O2 Delivery Nasal Cannula O2 Flow Rate 5.0 Intake and Output 10/12/18 10/12/18 10/13/18 15:00 23:00 07:00 Intake Total 1021 ml 50 ml Output Total 1200 ml 1200 ml 665 ml Balance -1200 ml -179 ml -615 ml JENNIFER WHITE III DO October 13, 2018 10:40
[2018-10-13] MEDS ORDERED: POTASSIUM CHL 20MEQ PREMIX 50 ML IV PRN ×3 (10:45→11:00)
--- NOTE | 2018-10-13 14:26 | PDOC ---
CARDIO Progress Notes Date and Time Date of Service 10/13/18 Time of Evaluation 1340 Subjective Subjective: No Chest Pain, No shortness of breath Vitals Vitals Vital Signs Date Time Temp Pulse Resp B/P (MAP) Pulse Ox O2 Delivery O2 Flow Rate FiO2 10/13/18 08:00 Nasal Cannula 5.0 10/13/18 06:00 105 12 112/84 (93) 98 10/13/18 04:00 97.8 97.8 Weight Weight [ ] Input and Output Intake and Output Intake and Output 10/13/18 07:00 Intake Total 1071 ml Output Total 3065 ml Balance -1994 ml Intake IV Total 1071 ml Output Urine Total 3065 ml # Bowel Movements 3 Laboratory Labs Laboratory Tests Test 10/13/18 05:35 Prothrombin Time 24.2 SEC (11.7-14.0) Prothromb Time International Ratio 2.2 (0.8-1.1) Fibrinogen 193 mg/dL (200-440) Sodium Level 135 mmol/L (136-145) Potassium Level 2.9 mmol/L (3.5-5.1) Chloride Level 96 mmol/L (98-107) Carbon Dioxide Level 32 mmol/L (21-32) Anion Gap 7 (6-14) Blood Urea Nitrogen 36 mg/dL (8-26) Creatinine 1.6 mg/dL (0.7-1.3) Estimated GFR (Cockcroft-Gault) 44.0 Glucose Level 127 mg/dL (70-99) Calcium Level 7.8 mg/dL (8.5-10.1) Microbiology Micro Microbiology 10/10/18 Blood Culture - Preliminary, Resulted NO GROWTH AFTER 2 DAYS Review of Systems Constitutional: yes: other (CONFUSED) Physical Exam HEENT: Neck Supple W Full Motion Chest: Symmetric LUNGS: Other (diminished bases) Heart: S1S2, irregularly irregular (AFIB- rate 95) Extremities: No Edema Neurology: alert, confused Assessment Assessment 1. Acute respiratory failure 2. AFIB, persistent; rate fairly well controlled 3. Leukocytosis, lactic acidosis, sepsis 4. GI bleed; s/p 1 unit PRBCs. hgb stable 5. Coagulopathy with past ETOH use and Hep C. s/p FFP 6. Transaminitis, cirrhosis, hepatitis C 7. Hypertension; low-normotensive 8. Suspect COPD with continued tobaccoism: moderate pulmonary hypertension 9. NATHANIEL on CKD 10. Metabolic encephalopathy 12. Hypokalemia Recommendations Resume metoprolol and Cardizem when able to take oral and BP consistently adequate Metoprolol IV q6 while NPO as BP allows. No ASA or NOAC given coagulopathy Supportive care MAYO BUSTOS APRN October 13, 2018 14:26
[2018-10-13] MEDS: METOPROLOL TARTRATE 5 MG/5 ML VIAL. IVP SCH ×3 (14:39→17:38)
--- NOTE | 2018-10-13 14:51 | NUR ---
SS following for discharge planning. SS reviewed pt chart. Pt is from home and currently requiring oxygen. Pt will need PT/OT when medically stable to participate. Case management notified. SS will continue to follow for discharge planning.
--- NOTE | 2018-10-13 16:13 | PDOC ---
G I PROGRESS NOTE Subjective Says abdominal pain. Unclear stooling per him. 3 charted. Objective No mention of any further blood in stool. Physical Exam Lungs clear. IRRR Abdomen tender, mostly LQ's, maybe worse on left. Not many bowel sounds. Review of Relevant I have reviewed the following items daysi (where applicable) has been applied. Labs Laboratory Tests Test 10/11/18 19:30 10/12/18 00:05 10/12/18 02:40 10/12/18 05:00 White Blood Count 6.6 x10^3/uL (4.0-11.0) 7.9 x10^3/uL (4.0-11.0) 8.0 x10^3/uL (4.0-11.0) Red Blood Count 3.89 x10^6/uL (4.30-5.70) 4.03 x10^6/uL (4.30-5.70) 3.87 x10^6/uL (4.30-5.70) Hemoglobin 8.2 g/dL (13.0-17.5) 8.3 g/dL (13.0-17.5) 8.2 g/dL (13.0-17.5) Hematocrit 25.9 % (39.0-53.0) 27.0 % (39.0-53.0) 25.8 % (39.0-53.0) Mean Corpuscular Volume 66 fL (79-100) 67 fL (79-100) 67 fL (79-100) Mean Corpuscular Hemoglobin 21 pg (25-35) 21 pg (25-35) 21 pg (25-35) Mean Corpuscular Hemoglobin Concent 32 g/dL (31-37) 31 g/dL (31-37) 32 g/dL (31-37) Red Cell Distribution Width 28.1 % (11.5-14.5) 27.7 % (11.5-14.5) 27.3 % (11.5-14.5) Platelet Count 98 x10^3/uL (140-400) 96 x10^3/uL (140-400) 90 x10^3/uL (140-400) Neutrophils (%) (Auto) 85 % (31-73) 86 % (31-73) 86 % (31-73) Lymphocytes (%) (Auto) 11 % (24-48) 10 % (24-48) 10 % (24-48) Monocytes (%) (Auto) 3 % (0-9) 4 % (0-9) 4 % (0-9) Eosinophils (%) (Auto) 1 % (0-3) 0 % (0-3) 0 % (0-3) Basophils (%) (Auto) 0 % (0-3) 0 % (0-3) 0 % (0-3) Neutrophils # (Auto) 5.6 x10^3uL (1.8-7.7) 6.8 x10^3uL (1.8-7.7) 6.9 x10^3uL (1.8-7.7) Lymphocytes # (Auto) 0.7 x10^3/uL (1.0-4.8) 0.8 x10^3/uL (1.0-4.8) 0.8 x10^3/uL (1.0-4.8) Monocytes # (Auto) 0.2 x10^3/uL (0.0-1.1) 0.3 x10^3/uL (0.0-1.1) 0.3 x10^3/uL (0.0-1.1) Eosinophils # (Auto) 0.0 x10^3/uL (0.0-0.7) 0.0 x10^3/uL (0.0-0.7) 0.0 x10^3/uL (0.0-0.7) Basophils # (Auto) 0.0 x10^3/uL (0.0-0.2) 0.0 x10^3/uL (0.0-0.2) 0.0 x10^3/uL (0.0-0.2) Plasma/Serum Osmolality 293 mOsmol/kg (280-301) Clostridium difficile Toxin B Gene Negative (Negative) Prothrombin Time 40.4 SEC (11.7-14.0) Prothromb Time International Ratio 4.2 (0.8-1.1) Sodium Level 137 mmol/L (136-145) Potassium Level 3.1 mmol/L (3.5-5.1) Chloride Level 98 mmol/L (98-107) Carbon Dioxide Level 32 mmol/L (21-32) Anion Gap 7 (6-14) Blood Urea Nitrogen 35 mg/dL (8-26) Creatinine 2.0 mg/dL (0.7-1.3) Estimated GFR (Cockcroft-Gault) 34.0 BUN/Creatinine Ratio 18 (6-20) Glucose Level 177 mg/dL (70-99) Calcium Level 7.7 mg/dL (8.5-10.1) Total Bilirubin 3.2 mg/dL (0.2-1.0) Aspartate Amino Transf (AST/SGOT) 3722 U/L (15-37) Alanine Aminotransferase (ALT/SGPT) 2141 U/L (16-63) Alkaline Phosphatase 106 U/L (46-116) Total Protein 5.2 g/dL (6.4-8.2) Albumin 2.4 g/dL (3.4-5.0) Albumin/Globulin Ratio 0.9 (1.0-1.7) Test 10/13/18 05:35 Prothrombin Time 24.2 SEC (11.7-14.0) Prothromb Time International Ratio 2.2 (0.8-1.1) Fibrinogen 193 mg/dL (200-440) Sodium Level 135 mmol/L (136-145) Potassium Level 2.9 mmol/L (3.5-5.1) Chloride Level 96 mmol/L (98-107) Carbon Dioxide Level 32 mmol/L (21-32) Anion Gap 7 (6-14) Blood Urea Nitrogen 36 mg/dL (8-26) Creatinine 1.6 mg/dL (0.7-1.3) Estimated GFR (Cockcroft-Gault) 44.0 Glucose Level 127 mg/dL (70-99) Calcium Level 7.8 mg/dL (8.5-10.1) Magnesium Level 1.9 mg/dL (1.8-2.4) Laboratory Tests Test 10/13/18 05:35 Prothrombin Time 24.2 SEC (11.7-14.0) Prothromb Time International Ratio 2.2 (0.8-1.1) Fibrinogen 193 mg/dL (200-440) Sodium Level 135 mmol/L (136-145) Potassium Level 2.9 mmol/L (3.5-5.1) Chloride Level 96 mmol/L (98-107) Carbon Dioxide Level 32 mmol/L (21-32) Anion Gap 7 (6-14) Blood Urea Nitrogen 36 mg/dL (8-26) Creatinine 1.6 mg/dL (0.7-1.3) Estimated GFR (Cockcroft-Gault) 44.0 Glucose Level 127 mg/dL (70-99) Calcium Level 7.8 mg/dL (8.5-10.1) Magnesium Level 1.9 mg/dL (1.8-2.4) Microbiology 10/10/18 Blood Culture - Preliminary, Resulted NO GROWTH AFTER 2 DAYS Presenting hemoglobin about where he was a month ago. Currently stable. LFT's falling. Fibrinogen just below lower limits of normal (on the way up?). Ammonia normal when checked. Platelets fell since presentation, stabilizing. Vitals/I & O Vital Sign - Last 24 Hours 10/12/18 10/12/18 10/12/18 10/12/18 17:00 18:00 19:00 20:00 Pulse 102 99 79 Resp 11 9 10 B/P (MAP) 140/64 (89) 124/87 (99) 135/106 (116) Pulse Ox 97 95 95 O2 Delivery Nasal Cannula Nasal Cannula Nasal Cannula Nasal Cannula O2 Flow Rate 4.0 4.0 4.0 5.0 10/12/18 10/12/18 10/12/18 10/12/18 20:00 21:00 22:00 23:00 Temp 97.0 97.0 Pulse 99 111 96 96 Resp 10 12 12 14 B/P (MAP) 129/95 (106) 112/73 (86) 113/76 (88) 107/82 (90) Pulse Ox 85 95 95 95 O2 Delivery Nasal Cannula Venturi Mask Venturi Mask Venturi Mask O2 Flow Rate 4.0 15.0 15.0 15.0 10/12/18 10/13/18 10/13/18 10/13/18 23:59 00:01 01:00 02:00 Temp 97.4 97.4 Pulse 96 96 88 Resp 12 14 12 B/P (MAP) 126/95 (105) 107/82 (90) 131/83 (99) Pulse Ox 95 95 95 O2 Delivery Venturi Mask Venturi Mask Venturi Mask Venturi Mask O2 Flow Rate 15.0 15.0 15.0 15.0 10/13/18 10/13/18 10/13/18 10/13/18 03:00 04:00 04:00 05:00 Temp 97.8 97.8 Pulse 82 85 93 Resp 11 12 12 B/P (MAP) 104/75 (85) 118/76 (90) 120/80 (93) Pulse Ox 98 95 98 O2 Delivery Venturi Mask Venturi Mask Venturi Mask Venturi Mask O2 Flow Rate 15.0 15.0 15.0 15.0 10/13/18 10/13/18 10/13/18 10/13/18 06:00 07:00 08:00 08:00 Temp 98.8 98.8 Pulse 105 94 94 Resp 12 12 14 B/P (MAP) 112/84 (93) 119/80 (93) 112/84 (93) Pulse Ox 98 99 96 O2 Delivery Nasal Cannula Nasal Cannula Nasal Cannula Nasal Cannula O2 Flow Rate 5.0 5.0 5.0 5.0 10/13/18 10/13/18 10/13/18 10/13/18 09:00 10:00 11:00 12:00 Temp 98.8 98.8 Pulse 104 106 110 112 Resp 13 17 15 18 B/P (MAP) 107/76 (86) 98/81 (87) 106/78 (87) 108/96 (100) Pulse Ox 95 94 95 96 O2 Delivery Nasal Cannula Nasal Cannula Nasal Cannula Nasal Cannula O2 Flow Rate 5.0 5.0 5.0 5.0 10/13/18 10/13/18 10/13/18 10/13/18 12:00 13:00 14:00 14:39 Pulse 105 110 122 Resp 16 20 B/P (MAP) 112/83 (93) 95/80 (85) 107/74 Pulse Ox 96 95 O2 Delivery Nasal Cannula Nasal Cannula Nasal Cannula O2 Flow Rate 5.0 5.0 5.0 Intake and Output 10/12/18 10/12/18 10/13/18 14:59 22:59 06:59 Intake Total 1021 ml 50 ml Output Total 1210 ml 1180 ml 815 ml Balance -1210 ml -159 ml -[address] reviewed. Problem List Problems Medical Problems: (1) Lactic acidosis Status: Acute (2) Liver failure Status: Acute (3) Pneumonia Status: Acute (4) Renal failure Status: Acute Assessment I think more the picture of shock liver and consumption coagulopathy than fulminant liver failure; why the profound issues at presentation unclear. Sonogram w/o signs of portal vein thrombosis. Abdominal pain/abnormal cecum on CT; concerned for ischemic insult. No longer overt blood in stool. Chronic HCV. Underlying ALLI. Cause of this unclear. Plan of Care Note Contnue support. Would not feed above ice chips for not. Follow abdominal exam; if worsens, repeat CT. Monitor LFT's, coags. REJI FANG MD October 13, 2018 16:13
[2018-10-13 17:07] LABS: ALBUMIN 2.3 g/dL (3.4-5.0); DIRECT BILIRUBIN 1.9 mg/dL (0.0-0.2); TOTAL BILIRUBIN 3.1 mg/dL (0.2-1.0); TOTAL PROTEIN 5.2 g/dL (6.4-8.2)
[2018-10-13] MEDS ORDERED: DIGOXIN IV 500 MCG/2 ML AMPUL. IV ONE (17:30)
[2018-10-14] VITALS (14 sets, daily range): BP systolic 131–175; BP diastolic 71–111
[2018-10-14] MEDS: METOPROLOL TARTRATE 5 MG/5 ML VIAL. IVP SCH ×2 (00:15→05:25)
[2018-10-14] MEDS: PIPERACILLIN/TAZOBACTAM 2.25 GM in IV NORMAL SALINE 50ML 50 ML IV SCH ×2 (00:16→05:59)
[2018-10-14 06:25] LABS: PROTHROMBIN TIME PATIENT 20.1 SEC (11.7-14.0)
[2018-10-14 06:35] LABS: CALCIUM 8.1 mg/dL (8.5-10.1); CREATININE 1.2 mg/dL (0.7-1.3); GFR 61.3; MAGNESIUM 1.8 mg/dL (1.8-2.4); PHOSPHORUS 2.2 mg/dL (2.6-4.7)
--- NOTE | 2018-10-14 08:12 | PDOC ---
Infectious Disease Note Subjective: Subjective pt is more alert today says has some abdo discomfort no nausea/f/c ROS: ROS Negative except for above. Vital Signs: Vital Signs Vital Signs Date Time Temp Pulse Resp B/P (MAP) Pulse Ox O2 Delivery O2 Flow Rate FiO2 10/14/18 06:00 138 20 156/85 (108) 96 Room Air 10/14/18 04:00 98.1 98.1 10/14/18 04:00 2.0 Physical Exam: PHYSICAL EXAM GENERAL: Sedated HENT: PERRL. Oral cavity dry LUNGS: Clear CV: S1 S2 irregular ABD: Soft, no grimace to palpation : Rodriguez EXT: No gross edema or cyanosis SKIN: No generalized rash RECOVERY ASSISTANT: Sedated Nontunneled RIJ/HDC (10/11) clean Left groin CVC Medications: Inpatient Meds: Current Medications Medications (Trade) Dose Ordered Sig/Debbie Start Time Stop Time Status Last Admin Dose Admin Albumin Human 50 ml @ 50 mls/hr 1X ONCE 10/12/18 18:00 10/12/18 18:59 DC 10/12/18 18:04 50 MLS/HR Albuterol Sulfate (Ventolin Neb Soln) 2.5 mg PRN Q4HRS PRN 10/11/18 07:15 10/14/18 03:05 2.5 MG Amino Acids/ Glycerin/ Electrolytes 1,000 ml @ As Directed STK-MED ONCE 10/12/18 09:58 10/12/18 09:59 DC Atropine Sulfate (ATROPINE 0.5mg SYRINGE) 0.5 mg PRN Q5MIN PRN 10/11/18 09:45 Calcium Gluconate (Calcium Gluconate) 1,000 mg 1X ONCE 10/10/18 22:30 10/10/18 22:31 DC 10/10/18 22:43 1,000 MG Dexmedetomidine HCl 200 mcg/ Sodium Chloride 50 ml @ 0 mls/hr CONT PRN 10/11/18 09:45 10/13/18 07:33 13.3 MLS/HR Digoxin (Lanoxin) 500 mcg 1X ONCE 10/13/18 17:30 10/13/18 17:31 DC 10/13/18 17:37 500 MCG Folic Acid (Folic Acid) 1 mg DAILY 10/11/18 09:00 10/12/18 09:03 DC Heparin Sodium (Porcine) (Heparin Sodium) 10,000 unit STK-MED ONCE 10/11/18 12:34 10/11/18 12:35 DC Info (PHARMACY MONITORING -- do not chart) 1 each PRN DAILY PRN 10/11/18 13:15 Lactulose (Lactulose) 200 gm PRN TID PRN 10/12/18 09:30 10/12/18 11:37 200 GM Levofloxacin/ Dextrose 50 ml @ 50 mls/hr 1X ONCE 10/11/18 07:00 10/11/18 07:59 DC 10/11/18 07:42 50 MLS/HR Lidocaine/Sodium Bicarbonate (Buffered Lidocaine 1%) 6 ml 1X ONCE 10/11/18 13:45 10/11/18 13:46 DC 10/11/18 13:42 4 ML Lorazepam (Ativan) 1 mg PRN Q3HRS PRN 10/11/18 08:00 10/11/18 09:35 DC Meropenem 500 mg/ Sodium Chloride 50 ml @ 100 mls/hr Q8HRS 10/11/18 14:00 10/11/18 14:00 DC Metoprolol Tartrate (Lopressor Vial) 5 mg Q6HRS 10/13/18 18:00 10/14/18 05:25 5 MG Octreotide Acetate 500 mcg/ Sodium Chloride 101 ml @ 0 mls/hr CONT PRN 10/10/18 23:45 10/12/18 14:57 DC 10/12/18 08:32 5 MLS/HR Ondansetron HCl (Zofran) 4 mg PRN Q6HRS PRN 10/11/18 08:45 Pantoprazole Sodium (PROTONIX VIAL for IV PUSH) 40 mg BID 10/12/18 21:00 10/13/18 22:00 40 MG Pantoprazole Sodium 80 mg/ Sodium Chloride 100 ml @ 10 mls/hr Q10H 10/10/18 23:30 10/12/18 14:57 DC 10/12/18 08:31 10 MLS/HR Phytonadione 10 mg/Dextrose 51 ml @ 102 mls/hr 1X ONCE 10/10/18 23:30 10/10/18 23:59 DC 10/10/18 23:46 102 MLS/HR Piperacillin Sod/ Tazobactam Sod (Zosyn Per Pharmacy) 1 each PRN DAILY PRN 10/10/18 22:45 Piperacillin Sod/ Tazobactam Sod 2.25 gm/Sodium Chloride 50 ml @ 100 mls/hr Q6HRS 10/13/18 12:00 10/14/18 05:59 100 MLS/HR Piperacillin Sod/ Tazobactam Sod 3.375 gm/Sodium Chloride 50 ml @ 100 mls/hr 1X ONCE 10/10/18 22:15 10/10/18 22:44 DC 10/10/18 22:44 100 MLS/HR Potassium Chloride/Water 50 ml @ 50 mls/hr PRN Q1HR PRN 10/13/18 11:00 Sodium Bicarbonate 50 meq/Dextrose 1,050 ml @ 60 mls/hr [id number] 10/11/18 10:00 10/12/18 10:58 DC 10/12/18 02:21 125 MLS/HR Sodium Bicarbonate (Sodium Bicarb Adult 8.4% Syr) 100 meq 1X ONCE 10/11/18 10:00 10/11/18 10:01 DC 10/11/18 10:00 100 MEQ Sodium Chloride 1,000 ml @ 400 mls/hr Q2H30M PRN 10/11/18 13:06 10/12/18 01:05 DC Sodium Chloride (Normal Saline Flush) 10 ml 1X PRN PRN 10/11/18 13:15 10/12/18 13:14 DC Thiamine HCl 100 mg/Dextrose 51 ml @ 102 mls/hr 1X ONCE 10/11/18 07:00 10/11/18 07:29 DC 10/11/18 07:40 102 MLS/HR Labs: Lab Laboratory Tests Test 10/14/18 06:00 Prothrombin Time 20.1 SEC (11.7-14.0) Prothromb Time International Ratio 1.7 (0.8-1.1) Sodium Level 134 mmol/L (136-145) Potassium Level 3.0 mmol/L (3.5-5.1) Chloride Level 99 mmol/L (98-107) Carbon Dioxide Level 29 mmol/L (21-32) Anion Gap 6 (6-14) Blood Urea Nitrogen 29 mg/dL (8-26) Creatinine 1.2 mg/dL (0.7-1.3) Estimated GFR (Cockcroft-Gault) 61.3 Glucose Level 97 mg/dL (70-99) Calcium Level 8.1 mg/dL (8.5-10.1) Phosphorus Level 2.2 mg/dL (2.6-4.7) Magnesium Level 1.8 mg/dL (1.8-2.4) Objective: Assessment: Sepsis with lactic acidosis Hypothermia, now improved and off Jo-Ann hugger Leukocytosis Acute encephalopathy likely metabolic with hepatic failure,improved NATHANIEL on CKD Acute liver failure ,ammonia wnl Respiratory insufficiency, O2 5L ? colitis on CT A- fib Hep C, VL 24,700 Anemia s/p fall Recent hospitalization Myoclonic movements bue, from hepatic failure improved Plan: Plan of Care LYLA Hilariosyneri Observe off antibiotics One time dose Levaquin, 5/4 f/u cultures Monitor labs DNR FIDELIA CASTILLO MD October 14, 2018 08:12
--- NOTE | 2018-10-14 08:56 | PDOC ---
CARDIO Progress Notes Date and Time Date of Service 10/14/2018 Time of Evaluation 0830 Subjective Subjective: No Chest Pain, No shortness of breath, No Palpitations Vitals Vitals Vital Signs Date Time Temp Pulse Resp B/P (MAP) Pulse Ox O2 Delivery O2 Flow Rate FiO2 10/14/18 06:00 138 20 156/85 (108) 96 Room Air 10/14/18 04:00 98.1 98.1 10/14/18 04:00 2.0 Weight Weight [ ] Input and Output Intake and Output Intake and Output 10/14/18 06:59 Intake Total 1244.3 ml Output Total 2395 ml Balance -1150.7 ml Intake Oral 200 ml IV Total 1044.3 ml Output Urine Total 2395 ml Laboratory Labs Laboratory Tests Test 10/14/18 06:00 Prothrombin Time 20.1 SEC (11.7-14.0) Prothromb Time International Ratio 1.7 (0.8-1.1) Sodium Level 134 mmol/L (136-145) Potassium Level 3.0 mmol/L (3.5-5.1) Chloride Level 99 mmol/L (98-107) Carbon Dioxide Level 29 mmol/L (21-32) Anion Gap 6 (6-14) Blood Urea Nitrogen 29 mg/dL (8-26) Creatinine 1.2 mg/dL (0.7-1.3) Estimated GFR (Cockcroft-Gault) 61.3 Glucose Level 97 mg/dL (70-99) Calcium Level 8.1 mg/dL (8.5-10.1) Phosphorus Level 2.2 mg/dL (2.6-4.7) Magnesium Level 1.8 mg/dL (1.8-2.4) Microbiology Micro Microbiology 10/10/18 Blood Culture - Preliminary, Resulted NO GROWTH AFTER 3 DAYS Review of Systems Constitutional: yes: other (CONFUSED) Physical Exam HEENT: Neck Supple W Full Motion Chest: Symmetric LUNGS: Other (basilar wheeze) Heart: irregularly irregular (AFIB RVR) Abdomen: Soft N/T Extremities: Other (2+ bilateral LE pitting edema) Neurology: alert, oriented, follow commands, confused Assessment Assessment 1. Acute respiratory failure 2. Persistent AFIB: currently with sustained RVR. BP adequate. 3. Leukocytosis, lactic acidosis, sepsis 4. GI bleed; s/p 1 unit PRBCs. pending Hgb 5. Coagulopathy with past ETOH use and Hep C. s/p FFP. GI following 6. Transaminitis, cirrhosis, hepatitis C 7. Hypertension; low-normotensive 8. Suspect COPD with continued tobaccoism: moderate pulmonary hypertension 9. NATHANIEL on CKD: improved 10. Metabolic encephalopathy 12. Hypokalemia Recommendations IV lopressor change to PRN. Start Cardizem with bolus and drip. Pt is still NPO ASA MT or PO once GI allows for stroke prevention. Obtain CBC. Bo Ramos Supportive care MARY JANE POTTER D[employer] MARKETING EXECUTIVE October 14, 2018 08:56
--- NOTE | 2018-10-14 08:59 | PDOC ---
PULMONARY PROGRESS NOTES Subjective OFF 02 COMPLAINING OF ABD PAIN Vitals Vital Signs Date Time Temp Pulse Resp B/P (MAP) Pulse Ox O2 Delivery O2 Flow Rate FiO2 10/14/18 06:00 138 20 156/85 (108) 96 Room Air 10/14/18 04:00 98.1 98.1 10/14/18 04:00 2.0 General: Alert Lungs: Clear, Other (decrease bs) Cardiovascular: S1 Abdomen: Soft Neuro Exam: Alert Extremities: No Edema Skin: Warm Labs Laboratory Tests Test 10/13/18 05:35 10/14/18 06:00 Prothrombin Time 24.2 SEC (11.7-14.0) 20.1 SEC (11.7-14.0) Prothromb Time International Ratio 2.2 (0.8-1.1) 1.7 (0.8-1.1) Fibrinogen 193 mg/dL (200-440) Miscellaneous Test Comment (.) Sodium Level 135 mmol/L (136-145) 134 mmol/L (136-145) Potassium Level 2.9 mmol/L (3.5-5.1) 3.0 mmol/L (3.5-5.1) Chloride Level 96 mmol/L (98-107) 99 mmol/L (98-107) Carbon Dioxide Level 32 mmol/L (21-32) 29 mmol/L (21-32) Anion Gap 7 (6-14) 6 (6-14) Blood Urea Nitrogen 36 mg/dL (8-26) 29 mg/dL (8-26) Creatinine 1.6 mg/dL (0.7-1.3) 1.2 mg/dL (0.7-1.3) Estimated GFR (Cockcroft-Gault) 44.0 61.3 Glucose Level 127 mg/dL (70-99) 97 mg/dL (70-99) Calcium Level 7.8 mg/dL (8.5-10.1) 8.1 mg/dL (8.5-10.1) Magnesium Level 1.9 mg/dL (1.8-2.4) 1.8 mg/dL (1.8-2.4) Total Bilirubin 3.1 mg/dL (0.2-1.0) Direct Bilirubin 1.9 mg/dL (0.0-0.2) Aspartate Amino Transf (AST/SGOT) 1188 U/L (15-37) Alanine Aminotransferase (ALT/SGPT) 1380 U/L (16-63) Alkaline Phosphatase 92 U/L (46-116) Total Protein 5.2 g/dL (6.4-8.2) Albumin 2.3 g/dL (3.4-5.0) Phosphorus Level 2.2 mg/dL (2.6-4.7) Laboratory Tests Test 10/14/18 06:00 Prothrombin Time 20.1 SEC (11.7-14.0) Prothromb Time International Ratio 1.7 (0.8-1.1) Sodium Level 134 mmol/L (136-145) Potassium Level 3.0 mmol/L (3.5-5.1) Chloride Level 99 mmol/L (98-107) Carbon Dioxide Level 29 mmol/L (21-32) Anion Gap 6 (6-14) Blood Urea Nitrogen 29 mg/dL (8-26) Creatinine 1.2 mg/dL (0.7-1.3) Estimated GFR (Cockcroft-Gault) 61.3 Glucose Level 97 mg/dL (70-99) Calcium Level 8.1 mg/dL (8.5-10.1) Phosphorus Level 2.2 mg/dL (2.6-4.7) Magnesium Level 1.8 mg/dL (1.8-2.4) Medications Active Scripts Medications Dose Route/Sig Max Daily Dose Days Date Category Lactulose 20 Gm/30 Ml Solution 20 Gm PO PRN TID PRN 30 10/07/18 Rx Tums (Calcium Carbonate) 300 Mg Tab.chew 300 Mg PO TIDAC PRN 10/06/18 Reported Cyclobenzaprine Hcl 10 Mg Tablet 1 Tab PO QHS 10/06/18 Reported Gabapentin (Gabapentin) 300 Mg Capsule 300 Mg PO TID 10/06/18 Reported Klor-Con M20 (Potassium Chloride) 20 Meq Tab.er.prt 40 Meq PO DAILY 30 09/13/18 Rx [Pantoprazole] 40 MG Tablet.dr 40 Mg PO DAILYAC 09/13/18 Rx Hydroxyzine Pamoate 25 Mg Capsule 25 Mg PO PRN Q8HRS PRN 30 09/13/18 Rx Aspirin Ec (Aspirin) 81 Mg Tablet.dr 81 Mg PO [id number] 09/13/18 Rx [Diltiazem Hcl] 240 MG Cap.er.24h 240 Mg PO DAILY 30 09/13/18 Rx Metoprolol Tartrate 25 Mg Tablet 25 Mg PO BID 30 09/13/18 Rx Vitamin B-1 (Thiamine Mononitrate) 100 Mg Tablet 100 Mg PO DAILY 02/07/17 Rx Hydrocodone-Apap 7.5-325 (Hydrocodone Bit/Acetaminophen) 1 Each Tablet 1 Tab PO PRN Q3HRS PRN 02/07/17 Rx Folic Acid 1 Mg Tablet 1 Mg PO DAILY 02/07/17 Rx Impression . 1. Acute hypoxic respiratory failure with multisystem organ involvement. The etiology of respiratory failure secondary to sepsis and acute liver failure. 2. Significantly abnormal liver function tests related to acute hepatic failure in a patient who has hepatitis C. 3. Acute blood loss anemia secondary to gastrointestinal bleed. 4. Coagulopathy with high INR of 5.2 related to liver disease and sepsis. 5. Thrombocytopenia. 6. Abnormal chest x-ray consistent with pneumonia. 7. Recently abnormal echo with [id number] mitral regurgitation and ejection fraction of 50%. 8. Severe metabolic acidosis secondary to lactic acidosis resulting from sepsis along with underlying liver failure. 9. Possible underlying COPD/tobaccoism. 10. Hyperkalemia. 11. AK 12. ABDOMINAL PAIN Plan . IMPROVING OFF 02 CT ABD PENDING ANTIBX PER ID FOLLOW GI RECOMMENDATION 02 NEEDED PARESH FONSECA MD October 14, 2018 08:59
[2018-10-14] MEDS ORDERED: dilTIAZem IV PUSH 25 MG/5 ML VIAL IVP ONE (09:00)
[2018-10-14] MEDS ORDERED: METOPROLOL TARTRATE 5 MG/5 ML VIAL. IVP PRN (09:00)
[2018-10-14] MEDS: PANTOPRAZOLE IV PUSH 40 MG VIAL. IVP SCH ×2 (09:04→20:49)
[2018-10-14] MEDS: POTASSIUM CHL 20MEQ PREMIX 50 ML IV SCH ×4 (09:06→11:50)
[2018-10-14 09:33] LABS: HEMATOCRIT 28.8 % (39.0-53.0); HEMOGLOBIN 8.8 g/dL (13.0-17.5); RED BLOOD COUNT 4.32 x10^6/uL (4.30-5.70); RED CELL DISTRIBUTION WIDTH 28.4 % (11.5-14.5); WHITE BLOOD COUNT 15.8 x10^3/uL (4.0-11.0)
[2018-10-14] MEDS: dilTIAZem INJ 125 MG in IV DEXTROSE 5% 100ML 100 ML IV PRN ×2 (10:05→18:12)
--- NOTE | 2018-10-14 10:10 | PDOC ---
PROGRESS NOTES Assessment Problems Medical Problems: (1) Lactic acidosis Status: Acute (2) Liver failure Status: Acute (3) Pneumonia Status: Acute (4) Renal failure Status: Acute Metabolic encephalopathy in patient with respiratory failure, sepsis, acute liver failure with transaminitis and coagulopathy, gastrointestinal bleed, thrombocytopenia, pneumonia, metabolic acidosis secondary to lactic acidosis, hyperkalemia. He is much better today Plan Okay to transfer the floor No additional neurological studies needed especially given marked improvement. Subjective He wants to go home Objective Vital Signs Date Time Temp Pulse Resp B/P (MAP) Pulse Ox O2 Delivery O2 Flow Rate FiO2 10/14/18 09:06 142 149/111 10/14/18 09:00 20 94 Room Air 10/14/18 08:00 97.9 97.9 10/14/18 04:00 2.0 Intake and Output 10/14/18 06:59 Intake Total 1244.3 ml Output Total 2395 ml Balance -1150.7 ml Intake Oral 200 ml IV Total 1044.3 ml Output Urine Total 2395 ml PHYSICAL EXAM Alert. Oriented to time, place and person. Speech is dysarthric, this is his normal speech according to the brother SUSAN. EOMI. CN: no focal findings. Muscle tone: normal. Muscle strength: 4/5 DTR: 1+ Plantar reflex: flexor Gait: not examined in bed. Sensory exam: no abnormal findings. No cerebellar signs elicited. No asterixis Review of Relevant I have reviewed the following items dayis (where applicable) has been applied. Labs Laboratory Tests Test 10/13/18 05:35 10/14/18 06:00 Prothrombin Time 24.2 SEC (11.7-14.0) 20.1 SEC (11.7-14.0) Prothromb Time International Ratio 2.2 (0.8-1.1) 1.7 (0.8-1.1) Fibrinogen 193 mg/dL (200-440) Miscellaneous Test Comment (.) Sodium Level 135 mmol/L (136-145) 134 mmol/L (136-145) Potassium Level 2.9 mmol/L (3.5-5.1) 3.0 mmol/L (3.5-5.1) Chloride Level 96 mmol/L (98-107) 99 mmol/L (98-107) Carbon Dioxide Level 32 mmol/L (21-32) 29 mmol/L (21-32) Anion Gap 7 (6-14) 6 (6-14) Blood Urea Nitrogen 36 mg/dL (8-26) 29 mg/dL (8-26) Creatinine 1.6 mg/dL (0.7-1.3) 1.2 mg/dL (0.7-1.3) Estimated GFR (Cockcroft-Gault) 44.0 61.3 Glucose Level 127 mg/dL (70-99) 97 mg/dL (70-99) Calcium Level 7.8 mg/dL (8.5-10.1) 8.1 mg/dL (8.5-10.1) Magnesium Level 1.9 mg/dL (1.8-2.4) 1.8 mg/dL (1.8-2.4) Total Bilirubin 3.1 mg/dL (0.2-1.0) Direct Bilirubin 1.9 mg/dL (0.0-0.2) Aspartate Amino Transf (AST/SGOT) 1188 U/L (15-37) Alanine Aminotransferase (ALT/SGPT) 1380 U/L (16-63) Alkaline Phosphatase 92 U/L (46-116) Total Protein 5.2 g/dL (6.4-8.2) Albumin 2.3 g/dL (3.4-5.0) White Blood Count 15.8 x10^3/uL (4.0-11.0) Red Blood Count 4.32 x10^6/uL (4.30-5.70) Hemoglobin 8.8 g/dL (13.0-17.5) Hematocrit 28.8 % (39.0-53.0) Mean Corpuscular Volume 67 fL (79-100) Mean Corpuscular Hemoglobin 20 pg (25-35) Mean Corpuscular Hemoglobin Concent 30 g/dL (31-37) Red Cell Distribution Width 28.4 % (11.5-14.5) Platelet Count 83 x10^3/uL (140-400) Phosphorus Level 2.2 mg/dL (2.6-4.7) Laboratory Tests Test 10/14/18 06:00 White Blood Count 15.8 x10^3/uL (4.0-11.0) Red Blood Count 4.32 x10^6/uL (4.30-5.70) Hemoglobin 8.8 g/dL (13.0-17.5) Hematocrit 28.8 % (39.0-53.0) Mean Corpuscular Volume 67 fL (79-100) Mean Corpuscular Hemoglobin 20 pg (25-35) Mean Corpuscular Hemoglobin Concent 30 g/dL (31-37) Red Cell Distribution Width 28.4 % (11.5-14.5) Platelet Count 83 x10^3/uL (140-400) Prothrombin Time 20.1 SEC (11.7-14.0) Prothromb Time International Ratio 1.7 (0.8-1.1) Sodium Level 134 mmol/L (136-145) Potassium Level 3.0 mmol/L (3.5-5.1) Chloride Level 99 mmol/L (98-107) Carbon Dioxide Level 29 mmol/L (21-32) Anion Gap 6 (6-14) Blood Urea Nitrogen 29 mg/dL (8-26) Creatinine 1.2 mg/dL (0.7-1.3) Estimated GFR (Cockcroft-Gault) 61.3 Glucose Level 97 mg/dL (70-99) Calcium Level 8.1 mg/dL (8.5-10.1) Phosphorus Level 2.2 mg/dL (2.6-4.7) Magnesium Level 1.8 mg/dL (1.8-2.4) Microbiology 10/10/18 Blood Culture - Preliminary, Resulted NO GROWTH AFTER 3 DAYS Medications Current Medications Sodium Chloride 1,000 ml @ 1,000 mls/hr 1X ONCE IV Last administered on 10/10/18at 22:43; Start 10/10/18 at 22:00; Stop 10/10/18 at 22:59; Status DC Sodium Chloride 1,000 ml @ 1,000 mls/hr 1X ONCE IV Last administered on 10/10/18at 22:42; Start 10/10/18 at 22:00; Stop 10/10/18 at 22:59; Status DC Piperacillin Sod/ Tazobactam Sod (Zosyn Per Pharmacy) 1 each PRN DAILY PRN MC SEE COMMENTS; Start 10/10/18 at 22:00; Stop 10/10/18 at 22:33; Status DC Piperacillin Sod/ Tazobactam Sod 3.375 gm/Sodium Chloride 50 ml @ 100 mls/hr 1X ONCE IV Last administered on 10/10/18at 22:44; Start 10/10/18 at 22:15; Stop 10/10/18 at 22:44; Status DC Sodium Bicarbonate (Sodium Bicarb Adult 8.4% Syr) 50 meq 1X ONCE IV Last administered on 10/10/18at 22:43; Start 10/10/18 at 22:30; Stop 10/10/18 at 22:31; Status DC Calcium Gluconate (Calcium Gluconate) 1,000 mg 1X ONCE IVP Last administered on 10/10/18at 22:43; Start 10/10/18 at 22:30; Stop 10/10/18 at 22:31; Status DC Piperacillin Sod/ Tazobactam Sod (Zosyn Per Pharmacy) 1 each PRN DAILY PRN MC SEE COMMENTS; Start 10/10/18 at 22:45; Stop 10/14/18 at 08:32; Status DC Pantoprazole Sodium 80 mg/ Sodium Chloride 100 ml @ 10 mls/hr Q10H IV Last administered on 10/12/18at 08:31; Start 10/10/18 at 23:30; Stop 10/12/18 at 14:57; Status DC Phytonadione 10 mg/Dextrose 51 ml @ 102 mls/hr 1X ONCE IV Last administered on 10/10/18at 23:46; Start 10/10/18 at 23:30; Stop 10/10/18 at 23:59; Status DC Octreotide Acetate 500 mcg/ Sodium Chloride 101 ml @ 0 mls/hr CONT PRN IV SEE I/O RECORD Last administered on 10/12/18at 08:32; Start 10/10/18 at 23:45; Stop 10/12/18 at 14:57; Status DC Sodium Bicarbonate 50 meq/Dextrose 1,050 ml @ 125 mls/hr 1X ONCE IV Last administered on 10/11/18at 00:01; Start 10/10/18 at 23:55; Stop 10/11/18 at 08:18; Status DC Piperacillin Sod/ Tazobactam Sod 2.25 gm/Sodium Chloride 50 ml @ 100 mls/hr Q6HRS IV Last administered on 10/11/18at 05:30; Start 10/11/18 at 06:00; Stop 10/11/18 at 08:25; Status DC Meropenem 500 mg/ Sodium Chloride 50 ml @ 100 mls/hr Q8HRS IV ; Start 10/11/18 at 14:00; Stop 10/11/18 at 14:00; Status DC Ondansetron HCl (Zofran) 4 mg 1X ONCE IV Last administered on 10/11/18at 06:41; Start 10/11/18 at 06:45; Stop 10/11/18 at 06:46; Status DC Thiamine HCl 100 mg/Dextrose 51 ml @ 102 mls/hr 1X ONCE IV Last administered on 10/11/18at 07:40; Start 10/11/18 at 07:00; Stop 10/11/18 at 07:29; Status DC Folic Acid (Folic Acid) 1 mg DAILY PO ; Start 10/11/18 at 09:00; Stop 10/12/18 at 09:03; Status DC Levofloxacin/ Dextrose 50 ml @ 50 mls/hr 1X ONCE IV Last administered on 10/11/18at 07:42; Start 10/11/18 at 07:00; Stop 10/11/18 at 07:59; Status DC Albuterol Sulfate (Ventolin Neb Soln) 2.5 mg PRN Q4HRS PRN NEB SHORTNESS OF BREATH Last administered on 10/14/18at 03:05; Start 10/11/18 at 07:15 Lorazepam (Ativan) 1 mg 1X ONCE IV Last administered on 10/11/18at 07:37; Start 10/11/18 at 07:30; Stop 10/11/18 at 09:35; Status DC Lorazepam (Ativan) 1 mg PRN Q3HRS PRN IV ANXIETY / AGITATION; Start 10/11/18 at 08:00; Stop 10/11/18 at 09:35; Status DC Piperacillin Sod/ Tazobactam Sod 2.25 gm/Sodium Chloride 50 ml @ 100 mls/hr Q8HRS IV Last administered on 10/13/18at 05:34; Start 10/11/18 at 14:00; Stop 10/13/18 at 08:15; Status DC Ondansetron HCl (Zofran) 4 mg PRN Q6HRS PRN IV NAUSEA/VOMITING; Start 10/11/18 at 08:45 Lactulose (Lactulose) 30 gm TID PO ; Start 10/11/18 at 09:30; Stop 10/11/18 at 11:25; Status DC Sodium Bicarbonate 50 meq/Dextrose 1,050 ml @ 60 mls/hr [id number] IV Last administered on 10/12/18at 02:21; Start 10/11/18 at 10:00; Stop 10/12/18 at 10:58; Status DC Dexmedetomidine HCl 200 mcg/ Sodium Chloride 50 ml @ 0 mls/hr CONT PRN IV PER PROTOCOL Last administered on 10/13/18at 07:33; Start 10/11/18 at 09:45 Sodium Chloride 500 ml @ 500 mls/hr 1X PRN PRN IV SEE COMMENTS; Start 10/11/18 at 09:45 Atropine Sulfate (ATROPINE 0.5mg SYRINGE) 0.5 mg PRN Q5MIN PRN IV SEE COMMENTS; Start 10/11/18 at 09:45 Sodium Bicarbonate (Sodium Bicarb Adult 8.4% Syr) 50 meq STK-MED ONCE .ROUTE ; Start 10/11/18 at 09:42; Stop 10/11/18 at 09:43; Status DC Sodium Bicarbonate (Sodium Bicarb Adult 8.4% Syr) 100 meq 1X ONCE IV Last administered on 10/11/18at 10:00; Start 10/11/18 at 10:00; Stop 10/11/18 at 10:01; Status DC Lactulose (Lactulose) 30 gm TID IN ; Start 10/11/18 at 12:00; Stop 10/11/18 at 13:06; Status DC Lidocaine/Sodium Bicarbonate (Buffered Lidocaine 1%) 3 ml STK-MED ONCE .ROUTE ; Start 10/11/18 at 12:34; Stop 10/11/18 at 12:35; Status DC Heparin Sodium (Porcine) (Heparin Sodium) 10,000 unit STK-MED ONCE .ROUTE ; Start 10/11/18 at 12:34; Stop 10/11/18 at 12:35; Status DC Lactulose (Lactulose) 200 gm TID IN Last administered on 10/11/18at 20:55; Start 10/11/18 at 14:00; Stop 10/12/18 at 09:22; Status DC Sodium Chloride 1,000 ml @ 1,000 mls/hr Q1H PRN IV hypotension; Start 10/11/18 at 13:06; Stop 10/11/18 at 19:05; Status DC Albumin Human 200 ml @ 200 mls/hr 1X PRN PRN IV Hypotension; Start 10/11/18 at 13:15; Stop 10/11/18 at 19:14; Status DC Sodium Chloride (Normal Saline Flush) 10 ml 1X PRN PRN IV AP catheter pack; Start 10/11/18 at 13:15; Stop 10/12/18 at 13:14; Status DC Sodium Chloride (Normal Saline Flush) 10 ml 1X PRN PRN IV PERL DEVELOPER catheter pack; Start 10/11/18 at 13:15; Stop 10/12/18 at 13:14; Status DC Sodium Chloride 1,000 ml @ 400 mls/hr Q2H30M PRN IV PATENCY; Start 10/11/18 at 13:06; Stop 10/12/18 at 01:05; Status DC Info (PHARMACY MONITORING -- do not chart) 1 each PRN DAILY PRN MC SEE COMMENTS; Start 10/11/18 at 13:15; Status UNV Info (PHARMACY MONITORING -- do not chart) 1 each PRN DAILY PRN MC SEE COMM ENTS; Start 10/11/18 at 13:15 Lidocaine/Sodium Bicarbonate (Buffered Lidocaine 1%) 6 ml 1X ONCE INJ Last administered on 10/11/18at 13:42; Start 10/11/18 at 13:45; Stop 10/11/18 at 13:46; Status DC Potassium Chloride/Water 50 ml @ 50 mls/hr 1X ONCE IV Last administered on 10/12/18at 09:30; Start 10/12/18 at 09:00; Stop 10/12/18 at 09:59; Status DC Lactulose (Lactulose) 200 gm PRN TID PRN IN CONFUSION Last administered on 10/12/18at 11:37; Start 10/12/18 at 09:30 Amino Acids/ Glycerin/ Electrolytes 1,000 ml @ 60 mls/hr [id number] IV Last administered on 10/13/18at 21:03; Start 10/12/18 at 10:00 Amino Acids/ Glycerin/ Electrolytes 1,000 ml @ As Directed STK-MED ONCE IV ; Start 10/12/18 at 09:58; Stop 10/12/18 at 09:59; Status DC Pantoprazole Sodium (PROTONIX VIAL for IV PUSH) 40 mg BID IVP Last administered on 10/14/18at 09:04; Start 10/12/18 at 21:00 Albumin Human 50 ml @ 50 mls/hr 1X ONCE IV Last administered on 10/12/18at 18:04; Start 10/12/18 at 18:00; Stop 10/12/18 at 18:59; Status DC Potassium Chloride/Water 100 ml @ 100 mls/hr Q1H IV Last administered on 10/13/18at 11:33; Start 10/13/18 at 07:00; Stop 10/13/18 at 10:59; Status DC Piperacillin Sod/ Tazobactam Sod 2.25 gm/Sodium Chloride 50 ml @ 100 mls/hr Q6HRS IV Last administered on 10/14/18at 05:59; Start 10/13/18 at 12:00; Stop 10/14/18 at 08:32; Status DC Potassium Chloride/Water 50 ml @ 50 mls/hr PRN Q1HR PRN IV SEE ORDER COMMENTS; Start 10/13/18 at 10:45 Potassium Chloride/Water 50 ml @ 50 mls/hr PRN Q1HR PRN IV SEE ORDER COMMENTS; Start 10/13/18 at 10:45 Potassium Chloride/Water 50 ml @ 50 mls/hr PRN Q1HR PRN IV SEE ORDER COMMENTS; Start 10/13/18 at 11:00 Metoprolol Tartrate (Lopressor Vial) 2.5 mg Q6HRS IVP Last administered on 10/13/18at 16:51; Start 10/13/18 at 15:00; Stop 10/13/18 at 17:22; Status DC Metoprolol Tartrate (Lopressor Vial) 5 mg Q6HRS IVP Last administered on 10/14/18at 05:25; Start 10/13/18 at 18:00; Stop 10/14/18 at 08:54; Status DC Digoxin (Lanoxin) 500 mcg 1X ONCE IV Last administered on 10/13/18at 17:37; Start 10/13/18 at 17:30; Stop 10/13/18 at 17:31; Status DC Potassium Chloride/Water 50 ml @ 0 mls/hr Q1H IV Last administered on 10/14/18at 10:05; Start 10/14/18 at 09:00; Stop 10/14/18 at 12:01 Diltiazem HCl 125 mg/Dextrose 125 ml @ 5 mls/hr CONT PRN IV SEE I/O RECORD Last administered on 10/14/18at 10:05; Start 10/14/18 at 09:00 Diltiazem HCl (Cardizem Iv Push) 10 mg 1X ONCE IVP Last administered on 10/14/18at 09:06; Start 10/14/18 at 09:00; Stop 10/14/18 at 09:01; Status DC Metoprolol Tartrate (Lopressor Vial) 5 mg PRN Q6HRS PRN IVP HYPERTENSION, SEE C OMMENTS; Start 10/14/18 at 09:00 Active Scripts Active Lactulose 20 Gm/30 Ml Solution 20 Gm PO PRN TID PRN 30 Days Klor-Con M20 (Potassium Chloride) 20 Meq Tab.er.prt 40 Meq PO DAILY 30 Days [Pantoprazole] 40 MG Tablet. 40 Mg PO DAILYAC 30 Days Hydroxyzine Pamoate 25 Mg Capsule 25 Mg PO PRN Q8HRS PRN 30 Days Aspirin Ec (Aspirin) 81 Mg Tablet.dr 81 Mg PO [id number] 30 Days [Diltiazem Hcl] 240 MG Cap.er.24h 240 Mg PO DAILY 30 Days Metoprolol Tartrate 25 Mg Tablet 25 Mg PO BID 30 Days Vitamin B-1 (Thiamine Mononitrate) 100 Mg Tablet 100 Mg PO DAILY Hydrocodone-Apap 7.5-325 (Hydrocodone Bit/Acetaminophen) 1 Each Tablet 1 Tab PO PRN Q3HRS PRN Folic Acid 1 Mg Tablet 1 Mg PO DAILY Reported Tums (Calcium Carbonate) 300 Mg Tab.chew 300 Mg PO TIDAC PRN Cyclobenzaprine Hcl 10 Mg Tablet 1 Tab PO QHS Gabapentin (Gabapentin) 300 Mg Capsule 300 Mg PO TID Vitals/I & O Vital Sign - Last 24 Hours 10/13/18 10/13/18 10/13/18 10/13/18 11:00 12:00 12:00 13:00 Temp 98.8 98.8 Pulse 110 112 105 Resp 15 18 16 B/P (MAP) 106/78 (87) 108/96 (100) 112/83 (93) Pulse Ox 95 96 96 O2 Delivery Nasal Cannula Nasal Cannula Nasal Cannula Nasal Cannula O2 Flow Rate 5.0 5.0 5.0 5.0 10/13/18 10/13/18 10/13/18 10/13/18 14:00 14:39 15:00 16:00 Pulse 110 122 111 Resp 20 20 B/P (MAP) 95/80 (85) 107/74 92/64 (73) Pulse Ox 95 95 O2 Delivery Nasal Cannula Nasal Cannula Nasal Cannula O2 Flow Rate 5.0 2.0 2.0 10/13/18 10/13/18 10/13/18 10/13/18 16:00 16:51 17:00 17:37 Temp 99.7 99.7 Pulse 134 145 136 135 Resp 20 18 B/P (MAP) 100/84 (89) 112/79 98/81 (87) Pulse Ox 94 95 O2 Delivery Nasal Cannula Nasal Cannula O2 Flow Rate 2.0 5.0 10/13/18 10/13/18 10/13/18 10/13/18 17:38 18:00 19:00 20:00 Temp 98.7 98.7 Pulse 128 104 104 104 Resp 16 16 17 B/P (MAP) 104/90 139/92 (108) 100/69 (79) 130/81 (97) Pulse Ox 94 98 90 O2 Delivery Nasal Cannula Nasal Cannula Nasal Cannula O2 Flow Rate 5.0 5.0 5.0 10/13/18 10/13/18 10/13/18 10/13/18 20:00 21:00 22:00 23:00 Pulse 104 117 118 Resp 20 19 20 B/P (MAP) 124/100 (108) 123/87 (99) 125/83 (97) Pulse Ox 91 100 99 O2 Delivery Nasal Cannula Nasal Cannula Nasal Cannula Nasal Cannula O2 Flow Rate 2.0 5.0 5.0 5.0 10/13/18 10/14/18 10/14/18 10/14/18 23:59 00:01 00:15 01:00 Temp 97.9 97.9 Pulse 122 118 124 Resp 18 24 B/P (MAP) 155/85 (108) 155/85 140/96 (111) Pulse Ox 97 93 O2 Delivery Nasal Cannula Nasal Cannula Nasal Cannula O2 Flow Rate 2.0 5.0 5.0 10/14/18 10/14/18 10/14/18 10/14/18 02:00 03:00 03:05 04:00 Pulse 124 109 Resp 24 17 B/P (MAP) 140/81 (100) 152/94 (113) Pulse Ox 93 98 100 O2 Delivery Nasal Cannula Room Air Venturi Mask Nasal Cannula O2 Flow Rate 5.0 15.0 2.0 10/14/18 10/14/18 10/14/18 10/14/18 04:00 05:00 05:25 06:00 Temp 98.1 98.1 Pulse 115 151 151 138 Resp 26 23 20 B/P (MAP) 159/90 (113) 175/94 (121) 175/94 156/85 (108) Pulse Ox 98 98 96 O2 Delivery Room Air Room Air Room Air 10/14/18 10/14/18 10/14/18 10/14/18 07:00 08:00 08:00 09:00 Temp 97.9 97.9 Pulse 128 140 130 Resp 22 22 20 B/P (MAP) 150/94 (112) 149/111 (124) 131/87 (102) Pulse Ox 93 95 94 O2 Delivery Room Air Room Air Room Air Room Air 10/14/18 09:06 Pulse 142 B/P (MAP) 149/111 Intake and Output 10/13/18 10/13/18 10/14/18 14:59 22:59 06:59 Intake Total 695 ml 50 ml 499.3 ml Output Total 735 ml 875 ml 785 ml Balance -40 ml -825 ml -285.7 ml JESU MORENO MD October 14, 2018 10:10
--- NOTE | 2018-10-14 10:22 | PDOC ---
Subjective: Subjective: "Stomach hurts," feels the same. Objective: Objective: RN asking about diet. Vital Signs: Vital Signs Date Time Temp Pulse Resp B/P (MAP) Pulse Ox O2 Delivery O2 Flow Rate FiO2 10/14/18 09:06 142 149/111 10/14/18 09:00 20 94 Room Air 10/14/18 08:00 97.9 97.9 10/14/18 04:00 2.0 Labs: Laboratory Tests Test 10/14/18 06:00 White Blood Count 15.8 x10^3/uL Red Blood Count 4.32 x10^6/uL Hemoglobin 8.8 g/dL Hematocrit 28.8 % Mean Corpuscular Volume 67 fL Mean Corpuscular Hemoglobin 20 pg Mean Corpuscular Hemoglobin Concent 30 g/dL Red Cell Distribution Width 28.4 % Platelet Count 83 x10^3/uL Prothrombin Time 20.1 SEC Prothromb Time International Ratio 1.7 Sodium Level 134 mmol/L Potassium Level 3.0 mmol/L Chloride Level 99 mmol/L Carbon Dioxide Level 29 mmol/L Anion Gap 6 Blood Urea Nitrogen 29 mg/dL Creatinine 1.2 mg/dL Estimated GFR (Cockcroft-Gault) 61.3 Glucose Level 97 mg/dL Calcium Level 8.1 mg/dL Phosphorus Level 2.2 mg/dL Magnesium Level 1.8 mg/dL BLOOD CULTURE Preliminary NO GROWTH AFTER 3 DAYS PE: GEN: NAD LUNGS: room air HEART: tachycardic, irregular ABD: quiet, soft, suprapubic/lower periumbilical to RLQ tenderness NEURO/PSYCH: A & O 3 A/P: Abd pain, abnormal cecum on CT Hep C, shock liver ALLI A Fib -- Will review questions about diet w/ Dr. Esteban. INR better, Hgb stable, can recheck LFTs. JASIEL WALSH October 14, 2018 10:22
--- NOTE | 2018-10-14 10:39 | PDOC ---
[facility] [facility] PROGRESS NOTE Chief Complaint Chief Complaint Found down by a neighbor with Transaminaseitis and mental status change (AST 4514, ALT 1550, Lactate 14.9. WBC 14.7, Hb 6.5 with bright red blood per rectum ) Abd pain, abnormal cecum on CT Hep C, shock liver ALLI A Fib Severe metabolic encephalopathy History of Present Illness History of Present Illness Patient seen and examined in the intensive care unit He is slightly more alert lying on his right side opens his eyes one-word sentence I discussed the case with his nurse I reviewed the chart Vitals Vitals Vital Signs Date Time Temp Pulse Resp B/P (MAP) Pulse Ox O2 Delivery O2 Flow Rate FiO2 10/14/18 09:06 142 149/111 10/14/18 09:00 20 94 Room Air 10/14/18 08:00 97.9 97.9 10/14/18 04:00 2.0 Physical Exam Physical Exam GENERAL: Sleepy but wakes up with one-word sentences and goes back to sleep HENT: PERRL. Oral cavity dry LUNGS: Clear CV: S1 S2 irregular ABD: Soft, no grimace to palpation : Rodriguez EXT: No gross edema or cyanosis SKIN: No generalized rash PROGRAM DEVELOPMENT MANAGER: Sleepy Nontunneled RIJ/HDC (10/11) clean Left groin CVC General: Other (sleepy) Heart: Regular rate, Normal S1, Other (irregularly irregular) Lungs: Clear, Other (decrease bs) Abdomen: Normal bowel sounds Extremities: No clubbing Skin: No breakdown, No significant lesion Labs LABS Laboratory Tests Test 10/14/18 06:00 White Blood Count 15.8 x10^3/uL (4.0-11.0) Red Blood Count 4.32 x10^6/uL (4.30-5.70) Hemoglobin 8.8 g/dL (13.0-17.5) Hematocrit 28.8 % (39.0-53.0) Mean Corpuscular Volume 67 fL (79-100) Mean Corpuscular Hemoglobin 20 pg (25-35) Mean Corpuscular Hemoglobin Concent 30 g/dL (31-37) Red Cell Distribution Width 28.4 % (11.5-14.5) Platelet Count 83 x10^3/uL (140-400) Prothrombin Time 20.1 SEC (11.7-14.0) Prothromb Time International Ratio 1.7 (0.8-1.1) Sodium Level 134 mmol/L (136-145) Potassium Level 3.0 mmol/L (3.5-5.1) Chloride Level 99 mmol/L (98-107) Carbon Dioxide Level 29 mmol/L (21-32) Anion Gap 6 (6-14) Blood Urea Nitrogen 29 mg/dL (8-26) Creatinine 1.2 mg/dL (0.7-1.3) Estimated GFR (Cockcroft-Gault) 61.3 Glucose Level 97 mg/dL (70-99) Calcium Level 8.1 mg/dL (8.5-10.1) Phosphorus Level 2.2 mg/dL (2.6-4.7) Magnesium Level 1.8 mg/dL (1.8-2.4) Review of Systems Review of Systems Unable to obtain Assessment and Plan Assessmemt and Plan Problems Medical Problems: (1) Lactic acidosis Status: Acute (2) Liver failure Status: Acute (3) Pneumonia Status: Acute (4) Renal failure Status: Acute Found down by a neighbor with Transaminaseitis and mental status change (AST 4514, ALT 1550, Lactate 14.9. WBC 14.7, Hb 6.5 with bright red blood per rectum ) Abd pain, abnormal cecum on CT Hep C, shock liver ALLI A Fib Severe metabolic encephalopathy Plan ICU monitoring Frequent labs DVT prophylaxis Full code IV fluids Home meds Appreciate subspecialist input Prognosis guarded Comment Review of Relevant I have reviewed the following items daysi (where applicable) has been applied. Labs Laboratory Tests Test 10/13/18 05:35 10/14/18 06:00 Prothrombin Time 24.2 SEC (11.7-14.0) 20.1 SEC (11.7-14.0) Prothromb Time International Ratio 2.2 (0.8-1.1) 1.7 (0.8-1.1) Fibrinogen 193 mg/dL (200-440) Miscellaneous Test Comment (.) Sodium Level 135 mmol/L (136-145) 134 mmol/L (136-145) Potassium Level 2.9 mmol/L (3.5-5.1) 3.0 mmol/L (3.5-5.1) Chloride Level 96 mmol/L (98-107) 99 mmol/L (98-107) Carbon Dioxide Level 32 mmol/L (21-32) 29 mmol/L (21-32) Anion Gap 7 (6-14) 6 (6-14) Blood Urea Nitrogen 36 mg/dL (8-26) 29 mg/dL (8-26) Creatinine 1.6 mg/dL (0.7-1.3) 1.2 mg/dL (0.7-1.3) Estimated GFR (Cockcroft-Gault) 44.0 61.3 Glucose Level 127 mg/dL (70-99) 97 mg/dL (70-99) Calcium Level 7.8 mg/dL (8.5-10.1) 8.1 mg/dL (8.5-10.1) Magnesium Level 1.9 mg/dL (1.8-2.4) 1.8 mg/dL (1.8-2.4) Total Bilirubin 3.1 mg/dL (0.2-1.0) Direct Bilirubin 1.9 mg/dL (0.0-0.2) Aspartate Amino Transf (AST/SGOT) 1188 U/L (15-37) Alanine Aminotransferase (ALT/SGPT) 1380 U/L (16-63) Alkaline Phosphatase 92 U/L (46-116) Total Protein 5.2 g/dL (6.4-8.2) Albumin 2.3 g/dL (3.4-5.0) White Blood Count 15.8 x10^3/uL (4.0-11.0) Red Blood Count 4.32 x10^6/uL (4.30-5.70) Hemoglobin 8.8 g/dL (13.0-17.5) Hematocrit 28.8 % (39.0-53.0) Mean Corpuscular Volume 67 fL (79-100) Mean Corpuscular Hemoglobin 20 pg (25-35) Mean Corpuscular Hemoglobin Concent 30 g/dL (31-37) Red Cell Distribution Width 28.4 % (11.5-14.5) Platelet Count 83 x10^3/uL (140-400) Phosphorus Level 2.2 mg/dL (2.6-4.7) Laboratory Tests Test 10/14/18 06:00 White Blood Count 15.8 x10^3/uL (4.0-11.0) Red Blood Count 4.32 x10^6/uL (4.30-5.70) Hemoglobin 8.8 g/dL (13.0-17.5) Hematocrit 28.8 % (39.0-53.0) Mean Corpuscular Volume 67 fL (79-100) Mean Corpuscular Hemoglobin 20 pg (25-35) Mean Corpuscular Hemoglobin Concent 30 g/dL (31-37) Red Cell Distribution Width 28.4 % (11.5-14.5) Platelet Count 83 x10^3/uL (140-400) Prothrombin Time 20.1 SEC (11.7-14.0) Prothromb Time International Ratio 1.7 (0.8-1.1) Sodium Level 134 mmol/L (136-145) Potassium Level 3.0 mmol/L (3.5-5.1) Chloride Level 99 mmol/L (98-107) Carbon Dioxide Level 29 mmol/L (21-32) Anion Gap 6 (6-14) Blood Urea Nitrogen 29 mg/dL (8-26) Creatinine 1.2 mg/dL (0.7-1.3) Estimated GFR (Cockcroft-Gault) 61.3 Glucose Level 97 mg/dL (70-99) Calcium Level 8.1 mg/dL (8.5-10.1) Phosphorus Level 2.2 mg/dL (2.6-4.7) Magnesium Level 1.8 mg/dL (1.8-2.4) Microbiology 10/10/18 Blood Culture - Preliminary, Resulted NO GROWTH AFTER 3 DAYS Medications Current Medications Sodium Chloride 1,000 ml @ 1,000 mls/hr 1X ONCE IV Last administered on 10/10/18at 22:43; Start 10/10/18 at 22:00; Stop 10/10/18 at 22:59; Status DC Sodium Chloride 1,000 ml @ 1,000 mls/hr 1X ONCE IV Last administered on 10/10/18at 22:42; Start 10/10/18 at 22:00; Stop 10/10/18 at 22:59; Status DC Piperacillin Sod/ Tazobactam Sod (Zosyn Per Pharmacy) 1 each PRN DAILY PRN MC SEE COMMENTS; Start 10/10/18 at 22:00; Stop 10/10/18 at 22:33; Status DC Piperacillin Sod/ Tazobactam Sod 3.375 gm/Sodium Chloride 50 ml @ 100 mls/hr 1X ONCE IV Last administered on 10/10/18at 22:44; Start 10/10/18 at 22:15; Stop 10/10/18 at 22:44; Status DC Sodium Bicarbonate (Sodium Bicarb Adult 8.4% Syr) 50 meq 1X ONCE IV Last administered on 10/10/18at 22:43; Start 10/10/18 at 22:30; Stop 10/10/18 at 22:31; Status DC Calcium Gluconate (Calcium Gluconate) 1,000 mg 1X ONCE IVP Last administered on 10/10/18at 22:43; Start 10/10/18 at 22:30; Stop 10/10/18 at 22:31; Status DC Piperacillin Sod/ Tazobactam Sod (Zosyn Per Pharmacy) 1 each PRN DAILY PRN MC SEE COMMENTS; Start 10/10/18 at 22:45; Stop 10/14/18 at 08:32; Status DC Pantoprazole Sodium 80 mg/ Sodium Chloride 100 ml @ 10 mls/hr Q10H IV Last administered on 10/12/18at 08:31; Start 10/10/18 at 23:30; Stop 10/12/18 at 14:57; Status DC Phytonadione 10 mg/Dextrose 51 ml @ 102 mls/hr 1X ONCE IV Last administered on 10/10/18at 23:46; Start 10/10/18 at 23:30; Stop 10/10/18 at 23:59; Status DC Octreotide Acetate 500 mcg/ Sodium Chloride 101 ml @ 0 mls/hr CONT PRN IV SEE I/O RECORD Last administered on 10/12/18at 08:32; Start 10/10/18 at 23:45; Stop 10/12/18 at 14:57; Status DC Sodium Bicarbonate 50 meq/Dextrose 1,050 ml @ 125 mls/hr 1X ONCE IV Last administered on 10/11/18at 00:01; Start 10/10/18 at 23:55; Stop 10/11/18 at 08:18; Status DC Piperacillin Sod/ Tazobactam Sod 2.25 gm/Sodium Chloride 50 ml @ 100 mls/hr Q6HRS IV Last administered on 10/11/18at 05:30; Start 10/11/18 at 06:00; Stop 10/11/18 at 08:25; Status DC Meropenem 500 mg/ Sodium Chloride 50 ml @ 100 mls/hr Q8HRS IV ; Start 10/11/18 at 14:00; Stop 10/11/18 at 14:00; Status DC Ondansetron HCl (Zofran) 4 mg 1X ONCE IV Last administered on 10/11/18at 06:41; Start 10/11/18 at 06:45; Stop 10/11/18 at 06:46; Status DC Thiamine HCl 100 mg/Dextrose 51 ml @ 102 mls/hr 1X ONCE IV Last administered on 10/11/18at 07:40; Start 10/11/18 at 07:00; Stop 10/11/18 at 07:29; Status DC Folic Acid (Folic Acid) 1 mg DAILY PO ; Start 10/11/18 at 09:00; Stop 10/12/18 at 09:03; Status DC Levofloxacin/ Dextrose 50 ml @ 50 mls/hr 1X ONCE IV Last administered on 10/11/18at 07:42; Start 10/11/18 at 07:00; Stop 10/11/18 at 07:59; Status DC Albuterol Sulfate (Ventolin Neb Soln) 2.5 mg PRN Q4HRS PRN NEB SHORTNESS OF BREATH Last administered on 10/14/18at 03:05; Start 10/11/18 at 07:15 Lorazepam (Ativan) 1 mg 1X ONCE IV Last administered on 10/11/18at 07:37; Start 10/11/18 at 07:30; Stop 10/11/18 at 09:35; Status DC Lorazepam (Ativan) 1 mg PRN Q3HRS PRN IV ANXIETY / AGITATION; Start 10/11/18 at 08:00; Stop 10/11/18 at 09:35; Status DC Piperacillin Sod/ Tazobactam Sod 2.25 gm/Sodium Chloride 50 ml @ 100 mls/hr Q8HRS IV Last administered on 10/13/18at 05:34; Start 10/11/18 at 14:00; Stop 10/13/18 at 08:15; Status DC Ondansetron HCl (Zofran) 4 mg PRN Q6HRS PRN IV NAUSEA/VOMITING; Start 10/11/18 at 08:45 Lactulose (Lactulose) 30 gm TID PO ; Start 10/11/18 at 09:30; Stop 10/11/18 at 11:25; Status DC Sodium Bicarbonate 50 meq/Dextrose 1,050 ml @ 60 mls/hr [id number] IV Last administered on 10/12/18at 02:21; Start 10/11/18 at 10:00; Stop 10/12/18 at 10:58; Status DC Dexmedetomidine HCl 200 mcg/ Sodium Chloride 50 ml @ 0 mls/hr CONT PRN IV PER PROTOCOL Last administered on 10/13/18at 07:33; Start 10/11/18 at 09:45 Sodium Chloride 500 ml @ 500 mls/hr 1X PRN PRN IV SEE COMMENTS; Start 10/11/18 at 09:45 Atropine Sulfate (ATROPINE 0.5mg SYRINGE) 0.5 mg PRN Q5MIN PRN IV SEE COMMENTS; Start 10/11/18 at 09:45 Sodium Bicarbonate (Sodium Bicarb Adult 8.4% Syr) 50 meq STK-MED ONCE .ROUTE ; Start 10/11/18 at 09:42; Stop 10/11/18 at 09:43; Status DC Sodium Bicarbonate (Sodium Bicarb Adult 8.4% Syr) 100 meq 1X ONCE IV Last administered on 10/11/18at 10:00; Start 10/11/18 at 10:00; Stop 10/11/18 at 10:01; Status DC Lactulose (Lactulose) 30 gm TID CO ; Start 10/11/18 at 12:00; Stop 10/11/18 at 13:06; Status DC Lidocaine/Sodium Bicarbonate (Buffered Lidocaine 1%) 3 ml STK-MED ONCE .ROUTE ; Start 10/11/18 at 12:34; Stop 10/11/18 at 12:35; Status DC Heparin Sodium (Porcine) (Heparin Sodium) 10,000 unit STK-MED ONCE .ROUTE ; Start 10/11/18 at 12:34; Stop 10/11/18 at 12:35; Status DC Lactulose (Lactulose) 200 gm TID CO Last administered on 10/11/18at 20:55; Start 10/11/18 at 14:00; Stop 10/12/18 at 09:22; Status DC Sodium Chloride 1,000 ml @ 1,000 mls/hr Q1H PRN IV hypotension; Start 10/11/18 at 13:06; Stop 10/11/18 at 19:05; Status DC Albumin Human 200 ml @ 200 mls/hr 1X PRN PRN IV Hypotension; Start 10/11/18 at 13:15; Stop 10/11/18 at 19:14; Status DC Sodium Chloride (Normal Saline Flush) 10 ml 1X PRN PRN IV AP catheter pack; Start 10/11/18 at 13:15; Stop 10/12/18 at 13:14; Status DC Sodium Chloride (Normal Saline Flush) 10 ml 1X PRN PRN IV PATIENT SERVICE TECHNICIAN PST catheter pack; Start 10/11/18 at 13:15; Stop 10/12/18 at 13:14; Status DC Sodium Chloride 1,000 ml @ 400 mls/hr Q2H30M PRN IV PATENCY; Start 10/11/18 at 13:06; Stop 10/12/18 at 01:05; Status DC Info (PHARMACY MONITORING -- do not chart) 1 each PRN DAILY PRN MC SEE COMMENTS; Start 10/11/18 at 13:15; Status UNV Info (PHARMACY MONITORING -- do not chart) 1 each PRN DAILY PRN MC SEE COMMENTS; Start 10/11/18 at 13:15 Lidocaine/Sodium Bicarbonate (Buffered Lidocaine 1%) 6 ml 1X ONCE INJ Last administered on 10/11/18at 13:42; Start 10/11/18 at 13:45; Stop 10/11/18 at 13:46; Status DC Potassium Chloride/Water 50 ml @ 50 mls/hr 1X ONCE IV Last administered on 10/12/18at 09:30; Start 10/12/18 at 09:00; Stop 10/12/18 at 09:59; Status DC Lactulose (Lactulose) 200 gm PRN TID PRN CO CONFUSION Last administered on 10/12/18at 11:37; Start 10/12/18 at 09:30 Amino Acids/ Glycerin/ Electrolytes 1,000 ml @ 60 mls/hr [id number] IV Last administered on 10/13/18at 21:03; Start 10/12/18 at 10:00 Amino Acids/ Glycerin/ Electrolytes 1,000 ml @ As Directed STK-MED ONCE IV ; Start 10/12/18 at 09:58; Stop 10/12/18 at 09:59; Status DC Pantoprazole Sodium (PROTONIX VIAL for IV PUSH) 40 mg BID IVP Last administered on 10/14/18at 09:04; Start 10/12/18 at 21:00 Albumin Human 50 ml @ 50 mls/hr 1X ONCE IV Last administered on 10/12/18at 18:04; Start 10/12/18 at 18:00; Stop 10/12/18 at 18:59; Status DC Potassium Chloride/Water 100 ml @ 100 mls/hr Q1H IV Last administered on 10/13/18at 11:33; Start 10/13/18 at 07:00; Stop 10/13/18 at 10:59; Status DC Piperacillin Sod/ Tazobactam Sod 2.25 gm/Sodium Chloride 50 ml @ 100 mls/hr Q6HRS IV Last administered on 10/14/18at 05:59; Start 10/13/18 at 12:00; Stop 10/14/18 at 08:32; Status DC Potassium Chloride/Water 50 ml @ 50 mls/hr PRN Q1HR PRN IV SEE ORDER COMMENTS; Start 10/13/18 at 10:45 Potassium Chloride/Water 50 ml @ 50 mls/hr PRN Q1HR PRN IV SEE ORDER COMMENTS; Start 10/13/18 at 10:45 Potassium Chloride/Water 50 ml @ 50 mls/hr PRN Q1HR PRN IV SEE ORDER COMMENTS; Start 10/13/18 at 11:00 Metoprolol Tartrate (Lopressor Vial) 2.5 mg Q6HRS IVP Last administered on 10/13/18at 16:51; Start 10/13/18 at 15:00; Stop 10/13/18 at 17:22; Status DC Metoprolol Tartrate (Lopressor Vial) 5 mg Q6HRS IVP Last administered on 10/14/18at 05:25; Start 10/13/18 at 18:00; Stop 10/14/18 at 08:54; Status DC Digoxin (Lanoxin) 500 mcg 1X ONCE IV Last administered on 10/13/18at 17:37; Start 10/13/18 at 17:30; Stop 10/13/18 at 17:31; Status DC Potassium Chloride/Water 50 ml @ 0 mls/hr Q1H IV Last administered on 10/14/18at 10:05; Start 10/14/18 at 09:00; Stop 10/14/18 at 12:01 Diltiazem HCl 125 mg/Dextrose 125 ml @ 5 mls/hr CONT PRN IV SEE I/O RECORD Last administered on 10/14/18at 10:05; Start 10/14/18 at 09:00 Diltiazem HCl (Cardizem Iv Push) 10 mg 1X ONCE IVP Last administered on 10/14/18at 09:06; Start 10/14/18 at 09:00; Stop 10/14/18 at 09:01; Status DC Metoprolol Tartrate (Lopressor Vial) 5 mg PRN Q6HRS PRN IVP HYPERTENSION, SEE COMMENTS; Start 10/14/18 at 09:00 Active Scripts Active Lactulose 20 Gm/30 Ml Solution 20 Gm PO PRN TID PRN 30 Days Klor-Con M20 (Potassium Chloride) 20 Meq Tab.er.prt 40 Meq PO DAILY 30 Days [Pantoprazole] 40 MG Tablet. 40 Mg PO DAILYAC 30 Days Hydroxyzine Pamoate 25 Mg Capsule 25 Mg PO PRN Q8HRS PRN 30 Days Aspirin Ec (Aspirin) 81 Mg Tablet. 81 Mg PO [id number] 30 Days [Diltiazem Hcl] 240 MG Cap.er.24h 240 Mg PO DAILY 30 Days Metoprolol Tartrate 25 Mg Tablet 25 Mg PO BID 30 Days Vitamin B-1 (Thiamine Mononitrate) 100 Mg Tablet 100 Mg PO DAILY Hydrocodone-Apap 7.5-325 (Hydrocodone Bit/Acetaminophen) 1 Each Tablet 1 Tab PO PRN Q3HRS PRN Folic Acid 1 Mg Tablet 1 Mg PO DAILY Reported Tums (Calcium Carbonate) 300 Mg Tab.chew 300 Mg PO TIDAC PRN Cyclobenzaprine Hcl 10 Mg Tablet 1 Tab PO QHS Gabapentin (Gabapentin) 300 Mg Capsule 300 Mg PO TID Vitals/I & O Vital Sign - Last 24 Hours 10/13/18 10/13/18 10/13/18 10/13/18 11:00 12:00 12:00 13:00 Temp 98.8 98.8 Pulse 110 112 105 Resp 15 18 16 B/P (MAP) 106/78 (87) 108/96 (100) 112/83 (93) Pulse Ox 95 96 96 O2 Delivery Nasal Cannula Nasal Cannula Nasal Cannula Nasal Cannula O2 Flow Rate 5.0 5.0 5.0 5.0 10/13/18 10/13/18 10/13/18 10/13/18 14:00 14:39 15:00 16:00 Pulse 110 122 111 Resp 20 20 B/P (MAP) 95/80 (85) 107/74 92/64 (73) Pulse Ox 95 95 O2 Delivery Nasal Cannula Nasal Cannula Nasal Cannula O2 Flow Rate 5.0 2.0 2.0 10/13/18 10/13/18 10/13/18 10/13/18 16:00 16:51 17:00 17:37 Temp 99.7 99.7 Pulse 134 145 136 135 Resp 20 18 B/P (MAP) 100/84 (89) 112/79 98/81 (87) Pulse Ox 94 95 O2 Delivery Nasal Cannula Nasal Cannula O2 Flow Rate 2.0 5.0 10/13/18 10/13/18 10/13/18 10/13/18 17:38 18:00 19:00 20:00 Temp 98.7 98.7 Pulse 128 104 104 104 Resp 16 16 17 B/P (MAP) 104/90 139/92 (108) 100/69 (79) 130/81 (97) Pulse Ox 94 98 90 O2 Delivery Nasal Cannula Nasal Cannula Nasal Cannula O2 Flow Rate 5.0 5.0 5.0 10/13/18 10/13/18 10/13/18 10/13/18 20:00 21:00 22:00 23:00 Pulse 104 117 118 Resp 20 19 20 B/P (MAP) 124/100 (108) 123/87 (99) 125/83 (97) Pulse Ox 91 100 99 O2 Delivery Nasal Cannula Nasal Cannula Nasal Cannula Nasal Cannula O2 Flow Rate 2.0 5.0 5.0 5.0 10/13/18 10/14/18 10/14/18 10/14/18 23:59 00:01 00:15 01:00 Temp 97.9 97.9 Pulse 122 118 124 Resp 18 24 B/P (MAP) 155/85 (108) 155/85 140/96 (111) Pulse Ox 97 93 O2 Delivery Nasal Cannula Nasal Cannula Nasal Cannula O2 Flow Rate 2.0 5.0 5.0 10/14/18 10/14/18 10/14/18 10/14/18 02:00 03:00 03:05 04:00 Pulse 124 109 Resp 24 17 B/P (MAP) 140/81 (100) 152/94 (113) Pulse Ox 93 98 100 O2 Delivery Nasal Cannula Room Air Venturi Mask Nasal Cannula O2 Flow Rate 5.0 15.0 2.0 10/14/18 10/14/18 10/14/18 10/14/18 04:00 05:00 05:25 06:00 Temp 98.1 98.1 Pulse 115 151 151 138 Resp 26 23 20 B/P (MAP) 159/90 (113) 175/94 (121) 175/94 156/85 (108) Pulse Ox 98 98 96 O2 Delivery Room Air Room Air Room Air 10/14/18 10/14/18 10/14/18 10/14/18 07:00 08:00 08:00 09:00 Temp 97.9 97.9 Pulse 128 140 130 Resp 22 22 20 B/P (MAP) 150/94 (112) 149/111 (124) 131/87 (102) Pulse Ox 93 95 94 O2 Delivery Room Air Room Air Room Air Room Air 10/14/18 09:06 Pulse 142 B/P (MAP) 149/111 Intake and Output 10/13/18 10/13/18 10/14/18 15:00 23:00 07:00 Intake Total 695 ml 50 ml 499.3 ml Output Total 675 ml 925 ml 810 ml Balance 20 ml -875 ml -310.7 ml JENNIFER WHITE III DO October 14, 2018 10:39
--- NOTE | 2018-10-14 10:50 | PDOC ---
Renal-Progress Notes Subjective Notes Notes LESS CONFUSED History of Present Illness Hx of present illness BETTER Vitals Vitals Vital Signs Date Time Temp Pulse Resp B/P (MAP) Pulse Ox O2 Delivery O2 Flow Rate FiO2 10/14/18 09:06 142 149/111 10/14/18 09:00 20 94 Room Air 10/14/18 08:00 97.9 97.9 10/14/18 04:00 2.0 Weight Weight [ ] I.O. Intake and Output Intake and Output 10/14/18 07:00 Intake Total 1244.3 ml Output Total 2410 ml Balance -1165.7 ml Intake Oral 200 ml IV Total 1044.3 ml Output Urine Total 2410 ml Labs Labs Laboratory Tests Test 10/14/18 06:00 White Blood Count 15.8 x10^3/uL (4.0-11.0) Red Blood Count 4.32 x10^6/uL (4.30-5.70) Hemoglobin 8.8 g/dL (13.0-17.5) Hematocrit 28.8 % (39.0-53.0) Mean Corpuscular Volume 67 fL (79-100) Mean Corpuscular Hemoglobin 20 pg (25-35) Mean Corpuscular Hemoglobin Concent 30 g/dL (31-37) Red Cell Distribution Width 28.4 % (11.5-14.5) Platelet Count 83 x10^3/uL (140-400) Prothrombin Time 20.1 SEC (11.7-14.0) Prothromb Time International Ratio 1.7 (0.8-1.1) Sodium Level 134 mmol/L (136-145) Potassium Level 3.0 mmol/L (3.5-5.1) Chloride Level 99 mmol/L (98-107) Carbon Dioxide Level 29 mmol/L (21-32) Anion Gap 6 (6-14) Blood Urea Nitrogen 29 mg/dL (8-26) Creatinine 1.2 mg/dL (0.7-1.3) Estimated GFR (Cockcroft-Gault) 61.3 Glucose Level 97 mg/dL (70-99) Calcium Level 8.1 mg/dL (8.5-10.1) Phosphorus Level 2.2 mg/dL (2.6-4.7) Magnesium Level 1.8 mg/dL (1.8-2.4) Micro Micro Microbiology 5/3/19 Blood Culture - Preliminary, Resulted NO GROWTH AFTER 3 DAYS Review of Systems Constitutional: yes: other (CONFUSED) Physical Exam General Appearance: no apparent distress Skin: warm Respiratory: decreased breath sounds Heart: S1S2 Abdomen: soft, bowel sounds present Genitourinary: bladder flat Extremities: pulses present Neurology: alert, oriented, follow commands, confused Assessment Assessment IMP NATHANIEL-IMPROVING UO AND CLEARANCE MET ACIDOSIS-RESOLVED MET ENCEPHALOPATHY SEPSIS ANEMIA AFIB RVR LIVER FAILURE WITH HEP C-IMPROVING LFT'S COAGULOPATHY HYPOKALEMIA LOW PO4 LEUCOCYTOSIS PLAN CONT HYDRATION PPN ANTIBIOTICS PRESSORS NEEDED NO MORE DIALYSIS PLANNED REPLACE K AND PO4 SUJATHA VOSS MD October 14, 2018 10:50
[2018-10-14] MEDS ORDERED: POTASSIUM PHOSPHATE DIBASIC 15 MMOL in IV NORMAL SALINE 250ML 250 ML IV ONE (11:00)
[2018-10-14] MEDS: AMINO AC 3%/ELECTROLYTE/GLYCER 1,000 ML IV SCH (12:00)
--- NOTE | 2018-10-14 12:49 | RAD ---
CT of the abdomen and pelvis without contrast, 10/14/2018: HISTORY: Worsening abdominal pain, abnormal cecum, possible ischemia No oral or IV contrast was administered for this study as requested. This limits evaluation of the abdominal structures. Comparison is made to a study from 10/10/2018. The small right pleural effusion has increased slightly in size while a small amount of left-sided pleural fluid has developed since 10/10/2018. There is mild underlying atelectasis posteriorly in both lung bases. The unopacified liver is unremarkable. Numerous gallstones are present in the gallbladder. The gallbladder is not distended. The pancreas is unremarkable. The spleen is of normal size. Left renal cysts are again noted. The kidneys show no evidence of obstruction. There is moderate aortoiliac calcific plaquing. No abdominal or pelvic adenopathy is evident. A Rodriguez catheter is present within the urinary bladder. The unopacified stomach is unremarkable. Gas is present in large and small bowel without evidence of obstruction. There appears to be mural thickening involving the cecum. No pneumatosis is evident in the bowel schafer. A small amount of free fluid is now evident in the abdomen and pelvis. There is mild streaky increased density in the mesenteric fat compatible with nonspecific inflammation. No free air is evident in the abdomen or pelvis. Several right transverse process fractures are again noted in the lumbar spine, most likely old. IMPRESSION: 1. Persistent mural thickening involving the cecum raising the possibility of neoplasm versus nonspecific colitis. 2. A small amount of free fluid has developed in the abdomen and pelvis. 3. Mild generalized mesenteric edema. 4. Increasing small right pleural effusion and new small left pleural effusion with mild bibasilar atelectasis. 5. Cholelithiasis. PQRS Compliance Statement: One or more of the following individualized dose reduction techniques were utilized for this examination: 1. Automated exposure control 2. Adjustment of the mA and/or kV according to patient size 3. Use of iterative reconstruction technique Electronically signed by: Brayan Fountain MD (10/14/2018 12:46 PM) [facility]
[2018-10-14] MEDS: fentaNYL PF VIAL 100 MCG/2 ML VIAL IV PRN ×2 (12:57→18:06)
[2018-10-14 21:40] LABS: ALBUMIN 2.3 g/dL (3.4-5.0); DIRECT BILIRUBIN 2.8 mg/dL (0.0-0.2); TOTAL BILIRUBIN 3.9 mg/dL (0.2-1.0); TOTAL PROTEIN 5.1 g/dL (6.4-8.2)
[2018-10-15] VITALS (7 sets, daily range): BP systolic 138–154; BP diastolic 72–90
[2018-10-15 07:05] LABS: CALCIUM 8.2 mg/dL (8.5-10.1); GFR 75.7; MAGNESIUM 1.7 mg/dL (1.8-2.4); PHOSPHORUS 2.4 mg/dL (2.6-4.7); POTASSIUM 3.2 mmol/L (3.5-5.1)
--- NOTE | 2018-10-15 07:25 | PDOC ---
Infectious Disease Note Subjective: Subjective pt complaints of abdo discomfort no nausea/f/c no bm since last 10/13 ROS: ROS Negative except for above. Vital Signs: Vital Signs Vital Signs Date Time Temp Pulse Resp B/P (MAP) Pulse Ox O2 Delivery O2 Flow Rate FiO2 10/15/18 04:00 97.9 96 25 144/72 (96) 95 Room Air 97.9 Physical Exam: PHYSICAL EXAM GENERAL: alert awake HENT: PERRL. 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 ,nonfocal Nontunneled RIJ/HDC (10/11) clean Medications: Inpatient Meds: Current Medications Medications (Trade) Dose Ordered Sig/Debbie Start Time Stop Time Status Last Admin Dose Admin Albumin Human 50 ml @ 50 mls/hr 1X ONCE 10/12/18 18:00 10/12/18 18:59 DC 10/12/18 18:04 Albuterol Sulfate (Ventolin Neb Soln) 2.5 mg PRN Q4HRS PRN 10/11/18 07:15 10/14/18 03:05 Amino Acids/ Glycerin/ Electrolytes 1,000 ml @ As Directed STK-MED ONCE 10/12/18 09:58 10/12/18 09:59 DC Atropine Sulfate (ATROPINE 0.5mg SYRINGE) 0.5 mg PRN Q5MIN PRN 10/11/18 09:45 Calcium Gluconate (Calcium Gluconate) 1,000 mg 1X ONCE 10/10/18 22:30 10/10/18 22:31 DC 10/10/18 22:43 Dexmedetomidine HCl 200 mcg/ Sodium Chloride 50 ml @ 0 mls/hr CONT PRN 10/11/18 09:45 10/13/18 07:33 Digoxin (Lanoxin) 500 mcg 1X ONCE 10/13/18 17:30 10/13/18 17:31 DC 10/13/18 17:37 Diltiazem HCl (Cardizem Iv Push) 10 mg 1X ONCE 10/14/18 09:00 10/14/18 09:01 DC 10/14/18 09:06 Diltiazem HCl 125 mg/Dextrose 125 ml @ 5 mls/hr CONT PRN 10/14/18 09:00 10/14/18 18:12 Fentanyl Citrate (Fentanyl 2ml Vial) 50 mcg PRN Q2HR PRN 10/14/18 13:00 10/14/18 18:06 Folic Acid (Folic Acid) 1 mg DAILY 10/11/18 09:00 10/12/18 09:03 DC Heparin Sodium (Porcine) (Heparin Sodium) 10,000 unit STK-MED ONCE 10/11/18 12:34 10/11/18 12:35 DC Info (PHARMACY MONITORING -- do not chart) 1 each PRN DAILY PRN 10/11/18 13:15 Lactulose (Lactulose) 200 gm PRN TID PRN 10/12/18 09:30 10/12/18 11:37 Levofloxacin/ Dextrose 50 ml @ 50 mls/hr 1X ONCE 10/11/18 07:00 10/11/18 07:59 DC 10/11/18 07:42 Lidocaine/Sodium Bicarbonate (Buffered Lidocaine 1%) 6 ml 1X ONCE 10/11/18 13:45 10/11/18 13:46 DC 10/11/18 13:42 Lorazepam (Ativan) 1 mg PRN Q3HRS PRN 10/11/18 08:00 10/11/18 09:35 DC Meropenem 500 mg/ Sodium Chloride 50 ml @ 100 mls/hr Q8HRS 10/11/18 14:00 10/11/18 14:00 DC Metoprolol Tartrate (Lopressor Vial) 5 mg PRN Q6HRS PRN 10/14/18 09:00 Octreotide Acetate 500 mcg/ Sodium Chloride 101 ml @ 0 mls/hr CONT PRN 10/10/18 23:45 10/12/18 14:57 DC 10/12/18 08:32 Ondansetron HCl (Zofran) 4 mg PRN Q6HRS PRN 10/11/18 08:45 Pantoprazole Sodium (PROTONIX VIAL for IV PUSH) 40 mg BID 10/12/18 21:00 10/14/18 20:49 Pantoprazole Sodium 80 mg/ Sodium Chloride 100 ml @ 10 mls/hr Q10H 10/10/18 23:30 10/12/18 14:57 DC 10/12/18 08:31 Phytonadione 10 mg/Dextrose 51 ml @ 102 mls/hr 1X ONCE 10/10/18 23:30 10/10/18 23:59 DC 10/10/18 23:46 Piperacillin Sod/ Tazobactam Sod (Zosyn Per Pharmacy) 1 each PRN DAILY PRN 10/10/18 22:45 10/14/18 08:32 DC Piperacillin Sod/ Tazobactam Sod 2.25 gm/Sodium Chloride 50 ml @ 100 mls/hr Q6HRS 10/13/18 12:00 10/14/18 08:32 DC 10/14/18 05:59 Piperacillin Sod/ Tazobactam Sod 3.375 gm/Sodium Chloride 50 ml @ 100 mls/hr 1X ONCE 10/10/18 22:15 10/10/18 22:44 DC 10/10/18 22:44 Potassium Chloride/Water 50 ml @ 0 mls/hr Q1H 10/14/18 09:00 10/14/18 12:01 DC 10/14/18 11:50 Potassium Phosphate 15 mmol/ Sodium Chloride 255 ml @ 127.5 mls/ hr 1X ONCE 10/14/18 11:00 10/14/18 12:59 DC 10/14/18 11:17 Sodium Bicarbonate 50 meq/Dextrose 1,050 ml @ 60 mls/hr [id number] 10/11/18 10:00 10/12/18 10:58 DC 10/12/18 02:21 Sodium Bicarbonate (Sodium Bicarb Adult 8.4% Syr) 100 meq 1X ONCE 10/11/18 10:00 10/11/18 10:01 DC 10/11/18 10:00 Sodium Chloride 1,000 ml @ 400 mls/hr Q2H30M PRN 10/11/18 13:06 10/12/18 01:05 DC Sodium Chloride (Normal Saline Flush) 10 ml 1X PRN PRN 10/11/18 13:15 10/12/18 13:14 DC Thiamine HCl 100 mg/Dextrose 51 ml @ 102 mls/hr 1X ONCE 10/11/18 07:00 10/11/18 07:29 DC 10/11/18 07:40 Labs: Lab Laboratory Tests Test 10/15/18 05:35 Sodium Level 134 mmol/L (136-145) Potassium Level 3.2 mmol/L (3.5-5.1) Chloride Level 100 mmol/L (98-107) Carbon Dioxide Level 24 mmol/L (21-32) Anion Gap 10 (6-14) Blood Urea Nitrogen 21 mg/dL (8-26) Creatinine 1.0 mg/dL (0.7-1.3) Estimated GFR (Cockcroft-Gault) 75.7 Glucose Level 111 mg/dL (70-99) Calcium Level 8.2 mg/dL (8.5-10.1) Phosphorus Level 2.4 mg/dL (2.6-4.7) Magnesium Level 1.7 mg/dL (1.8-2.4) Micro CT A/P IMPRESSION: 1. Persistent mural thickening involving the cecum raising the possibility of neoplasm versus nonspecific colitis. 2. A small amount of free fluid has developed in the abdomen and pelvis. 3. Mild generalized mesenteric edema. 4. Increasing small right pleural effusion and new small left pleural effusion with mild bibasilar atelectasis. 5. Cholelithiasis. Objective: Assessment: Sepsis with lactic acidosis source GI Hypothermia, now improved and off Jo-Ann hugger Leukocytosis trending upwards Acute encephalopathy likely metabolic with hepatic failure,improved NATHANIEL on CKD Acute liver failure ,ammonia wnl Respiratory insufficiency, O2 5L Abdo pain CT showsing Persistent mural thickening involving the cecum raising the possibility of neoplasm versus nonspecific colitis. Mild generalized mesenteric edema. Cholelithiasis A- fib Hep C, VL 24,700 Anemia s/p fall Recent hospitalization Myoclonic movements bue, from hepatic failure improved pleural effusion with mild bibasilar atelectasis. Plan: Plan of Care oscar, was on Zosyn,DC due to thrombocytopenia One time dose Levaquin, 5/4 f/u cultures Monitor labs DNR D/W FIDELIA HERNANDEZ MD October 15, 2018 07:25
[2018-10-15] MEDS: AMINO AC 3%/ELECTROLYTE/GLYCER 1,000 ML IV SCH ×2 (08:19→21:01)
[2018-10-15] MEDS: fentaNYL PF VIAL 100 MCG/2 ML VIAL IV PRN (08:20)
[2018-10-15] MEDS: PANTOPRAZOLE IV PUSH 40 MG VIAL. IVP SCH ×2 (08:20→21:00)
[2018-10-15] MEDS: MEROPENEM 500 MG in IV NORMAL SALINE 50ML 50 ML IV SCH ×4 (08:20→23:33)
--- NOTE | 2018-10-15 09:06 | PDOC ---
PULMONARY PROGRESS NOTES Subjective NOT MORE SOA Vitals Vital Signs Date Time Temp Pulse Resp B/P (MAP) Pulse Ox O2 Delivery O2 Flow Rate FiO2 10/15/18 08:00 98.2 94 24 154/83 (106) 94 Room Air 98.2 ROS: No Nausea, No Chest Pain, No Abdominal Pain, No Increase Cough General: Alert Lungs: Clear, Other (decrease bs) Cardiovascular: S1 Abdomen: Soft Neuro Exam: Alert Extremities: No Edema Skin: Warm Labs Laboratory Tests Test 10/14/18 06:00 10/15/18 05:35 White Blood Count 15.8 x10^3/uL (4.0-11.0) Red Blood Count 4.32 x10^6/uL (4.30-5.70) Hemoglobin 8.8 g/dL (13.0-17.5) Hematocrit 28.8 % (39.0-53.0) Mean Corpuscular Volume 67 fL (79-100) Mean Corpuscular Hemoglobin 20 pg (25-35) Mean Corpuscular Hemoglobin Concent 30 g/dL (31-37) Red Cell Distribution Width 28.4 % (11.5-14.5) Platelet Count 83 x10^3/uL (140-400) Prothrombin Time 20.1 SEC (11.7-14.0) Prothromb Time International Ratio 1.7 (0.8-1.1) Sodium Level 134 mmol/L (136-145) 134 mmol/L (136-145) Potassium Level 3.0 mmol/L (3.5-5.1) 3.2 mmol/L (3.5-5.1) Chloride Level 99 mmol/L (98-107) 100 mmol/L (98-107) Carbon Dioxide Level 29 mmol/L (21-32) 24 mmol/L (21-32) Anion Gap 6 (6-14) 10 (6-14) Blood Urea Nitrogen 29 mg/dL (8-26) 21 mg/dL (8-26) Creatinine 1.2 mg/dL (0.7-1.3) 1.0 mg/dL (0.7-1.3) Estimated GFR (Cockcroft-Gault) 61.3 75.7 Glucose Level 97 mg/dL (70-99) 111 mg/dL (70-99) Calcium Level 8.1 mg/dL (8.5-10.1) 8.2 mg/dL (8.5-10.1) Phosphorus Level 2.2 mg/dL (2.6-4.7) 2.4 mg/dL (2.6-4.7) Magnesium Level 1.8 mg/dL (1.8-2.4) 1.7 mg/dL (1.8-2.4) Total Bilirubin 3.9 mg/dL (0.2-1.0) Direct Bilirubin 2.8 mg/dL (0.0-0.2) Aspartate Amino Transf (AST/SGOT) 448 U/L (15-37) Alanine Aminotransferase (ALT/SGPT) 908 U/L (16-63) Alkaline Phosphatase 101 U/L (46-116) Total Protein 5.1 g/dL (6.4-8.2) Albumin 2.3 g/dL (3.4-5.0) Laboratory Tests Test 10/15/18 05:35 Sodium Level 134 mmol/L (136-145) Potassium Level 3.2 mmol/L (3.5-5.1) Chloride Level 100 mmol/L (98-107) Carbon Dioxide Level 24 mmol/L (21-32) Anion Gap 10 (6-14) Blood Urea Nitrogen 21 mg/dL (8-26) Creatinine 1.0 mg/dL (0.7-1.3) Estimated GFR (Cockcroft-Gault) 75.7 Glucose Level 111 mg/dL (70-99) Calcium Level 8.2 mg/dL (8.5-10.1) Phosphorus Level 2.4 mg/dL (2.6-4.7) Magnesium Level 1.7 mg/dL (1.8-2.4) Medications Active Scripts Medications Dose Route/Sig Max Daily Dose Days Date Category Lactulose 20 Gm/30 Ml Solution 20 Gm PO PRN TID PRN 30 10/07/18 Rx Tums (Calcium Carbonate) 300 Mg Tab.chew 300 Mg PO TIDAC PRN 10/06/18 Reported Cyclobenzaprine Hcl 10 Mg Tablet 1 Tab PO QHS 10/06/18 Reported Gabapentin (Gabapentin) 300 Mg Capsule 300 Mg PO TID 10/06/18 Reported Klor-Con M20 (Potassium Chloride) 20 Meq Tab.er.prt 40 Meq PO DAILY 30 19 Rx [Pantoprazole] 40 MG Tablet.dr 40 Mg PO DAILYAC 30 09/13/18 Rx Hydroxyzine Pamoate 25 Mg Capsule 25 Mg PO PRN Q8HRS PRN 30 09/13/18 Rx Aspirin Ec (Aspirin) 81 Mg Tablet.dr 81 Mg PO [id number] 09/13/18 Rx [Diltiazem Hcl] 240 MG Cap.er.24h 240 Mg PO DAILY 09/13/18 Rx Metoprolol Tartrate 25 Mg Tablet 25 Mg PO BID 09/13/18 Rx Vitamin B-1 (Thiamine Mononitrate) 100 Mg Tablet 100 Mg PO DAILY 02/07/17 Rx Hydrocodone-Apap 7.5-325 (Hydrocodone Bit/Acetaminophen) 1 Each Tablet 1 Tab PO PRN Q3HRS PRN 02/07/17 Rx Folic Acid 1 Mg Tablet 1 Mg PO DAILY 02/07/17 Rx Impression . 1. Acute hypoxic respiratory failure with multisystem organ involvement. The etiology of respiratory failure secondary to sepsis and acute liver failure. 2. Significantly abnormal liver function tests related to acute hepatic failure in a patient who has hepatitis C. 3. Acute blood loss anemia secondary to gastrointestinal bleed. 4. Coagulopathy with high INR of 5.2 related to liver disease and sepsis. 5. Thrombocytopenia. 6. Abnormal chest x-ray consistent with pneumonia. 7. Recently abnormal echo with [id number] mitral regurgitation and ejection fraction of 50%. 8. Severe metabolic acidosis secondary to lactic acidosis resulting from sepsis along with underlying liver failure. 9. Possible underlying COPD/tobaccoism. 10. Hyperkalemia. 11. NATHANIEL 12. ABDOMINAL PAIN Plan . TRANSFER TO FLOOR IMPROVING OFF 02 IS ANTIBX PER ID FOLLOW GI RECOMMENDATION 02 NEEDED PARESH FONSECA MD October 15, 2018 09:06
--- NOTE | 2018-10-15 09:27 | PDOC ---
PROGRESS NOTES Assessment Problems Medical Problems: (1) Lactic acidosis Status: Acute (2) Liver failure Status: Acute (3) Pneumonia Status: Acute (4) Renal failure Status: Acute Metabolic encephalopathy in patient with respiratory failure, sepsis, acute liver failure with transaminitis and coagulopathy, gastrointestinal bleed, thrombocytopenia, pneumonia, metabolic acidosis secondary to lactic acidosis, hyperkalemia. He remains much better Plan Okay to transfer the floor No additional neurological studies needed especially given marked improvement. Subjective No complaints Objective Vital Signs Date Time Temp Pulse Resp B/P (MAP) Pulse Ox O2 Delivery O2 Flow Rate FiO2 10/15/18 08:00 98.2 94 24 154/83 (106) 94 Room Air 98.2 Intake and Output 10/15/18 07:00 Intake Total 706.57 ml Output Total 2500 ml Balance -1793.43 ml IV Total 706.57 ml Output Urine Total 2500 ml PHYSICAL EXAM Alert. Oriented to time, place and person. Does not know name of President, uses a gastroenterologic anatomic reference to describe him. Speech is dysarthric, this is his normal speech according to the brother SUSAN. EOMI. CN: no focal findings. Muscle tone: normal. Muscle strength: 4/5 DTR: 1+ Plantar reflex: flexor Gait: not examined in bed. Sensory exam: no abnormal findings. No cerebellar signs elicited. No asterixis Review of Relevant I have reviewed the following items daysi (where applicable) has been applied. Labs Laboratory Tests Test 10/14/18 06:00 10/15/18 05:35 White Blood Count 15.8 x10^3/uL (4.0-11.0) Red Blood Count 4.32 x10^6/uL (4.30-5.70) Hemoglobin 8.8 g/dL (13.0-17.5) Hematocrit 28.8 % (39.0-53.0) Mean Corpuscular Volume 67 fL (79-100) Mean Corpuscular Hemoglobin 20 pg (25-35) Mean Corpuscular Hemoglobin Concent 30 g/dL (31-37) Red Cell Distribution Width 28.4 % (11.5-14.5) Platelet Count 83 x10^3/uL (140-400) Prothrombin Time 20.1 SEC (11.7-14.0) Prothromb Time International Ratio 1.7 (0.8-1.1) Sodium Level 134 mmol/L (136-145) 134 mmol/L (136-145) Potassium Level 3.0 mmol/L (3.5-5.1) 3.2 mmol/L (3.5-5.1) Chloride Level 99 mmol/L (98-107) 100 mmol/L (98-107) Carbon Dioxide Level 29 mmol/L (21-32) 24 mmol/L (21-32) Anion Gap 6 (6-14) 10 (6-14) Blood Urea Nitrogen 29 mg/dL (8-26) 21 mg/dL (8-26) Creatinine 1.2 mg/dL (0.7-1.3) 1.0 mg/dL (0.7-1.3) Estimated GFR (Cockcroft-Gault) 61.3 75.7 Glucose Level 97 mg/dL (70-99) 111 mg/dL (70-99) Calcium Level 8.1 mg/dL (8.5-10.1) 8.2 mg/dL (8.5-10.1) Phosphorus Level 2.2 mg/dL (2.6-4.7) 2.4 mg/dL (2.6-4.7) Magnesium Level 1.8 mg/dL (1.8-2.4) 1.7 mg/dL (1.8-2.4) Total Bilirubin 3.9 mg/dL (0.2-1.0) Direct Bilirubin 2.8 mg/dL (0.0-0.2) Aspartate Amino Transf (AST/SGOT) 448 U/L (15-37) Alanine Aminotransferase (ALT/SGPT) 908 U/L (16-63) Alkaline Phosphatase 101 U/L (46-116) Total Protein 5.1 g/dL (6.4-8.2) Albumin 2.3 g/dL (3.4-5.0) Laboratory Tests Test 10/15/18 05:35 Sodium Level 134 mmol/L (136-145) Potassium Level 3.2 mmol/L (3.5-5.1) Chloride Level 100 mmol/L (98-107) Carbon Dioxide Level 24 mmol/L (21-32) Anion Gap 10 (6-14) Blood Urea Nitrogen 21 mg/dL (8-26) Creatinine 1.0 mg/dL (0.7-1.3) Estimated GFR (Cockcroft-Gault) 75.7 Glucose Level 111 mg/dL (70-99) Calcium Level 8.2 mg/dL (8.5-10.1) Phosphorus Level 2.4 mg/dL (2.6-4.7) Magnesium Level 1.7 mg/dL (1.8-2.4) Microbiology 10/10/18 Blood Culture - Preliminary, Resulted NO GROWTH AFTER 4 DAYS 10/12/18 Stool Culture - Final, Resulted 10/12/18 Stool Culture Result 1 (JABIER) - Final, Resulted 10/12/18 Campylobacter Antigen Assay - Preliminary, Resulted 10/12/18 Campylobactor Result 1 - Preliminary, Resulted 10/12/18 Shiga Toxin Test - Final, Resulted Medications Current Medications Sodium Chloride 1,000 ml @ 1,000 mls/hr 1X ONCE IV Last administered on 10/10/18at 22:43; Start 10/10/18 at 22:00; Stop 10/10/18 at 22:59; Status DC Sodium Chloride 1,000 ml @ 1,000 mls/hr 1X ONCE IV Last administered on 10/10/18at 22:42; Start 10/10/18 at 22:00; Stop 10/10/18 at 22:59; Status DC Piperacillin Sod/ Tazobactam Sod (Zosyn Per Pharmacy) 1 each PRN DAILY PRN MC SEE COMMENTS; Start 10/10/18 at 22:00; Stop 10/10/18 at 22:33; Status DC Piperacillin Sod/ Tazobactam Sod 3.375 gm/Sodium Chloride 50 ml @ 100 mls/hr 1X ONCE IV Last administered on 10/10/18at 22:44; Start 10/10/18 at 22:15; Stop 10/10/18 at 22:44; Status DC Sodium Bicarbonate (Sodium Bicarb Adult 8.4% Syr) 50 meq 1X ONCE IV Last administered on 10/10/18at 22:43; Start 10/10/18 at 22:30; Stop 10/10/18 at 22:31; Status DC Calcium Gluconate (Calcium Gluconate) 1,000 mg 1X ONCE IVP Last administered on 10/10/18at 22:43; Start 10/10/18 at 22:30; Stop 10/10/18 at 22:31; Status DC Piperacillin Sod/ Tazobactam Sod (Zosyn Per Pharmacy) 1 each PRN DAILY PRN MC SEE COMMENTS; Start 10/10/18 at 22:45; Stop 10/14/18 at 08:32; Status DC Pantoprazole Sodium 80 mg/ Sodium Chloride 100 ml @ 10 mls/hr Q10H IV Last administered on 10/12/18at 08:31; Start 10/10/18 at 23:30; Stop 10/12/18 at 14:57; Status DC Phytonadione 10 mg/Dextrose 51 ml @ 102 mls/hr 1X ONCE IV Last administered on 10/10/18at 23:46; Start 10/10/18 at 23:30; Stop 10/10/18 at 23:59; Status DC Octreotide Acetate 500 mcg/ Sodium Chloride 101 ml @ 0 mls/hr CONT PRN IV SEE I/O RECORD Last administered on 10/12/18at 08:32; Start 10/10/18 at 23:45; Stop 10/12/18 at 14:57; Status DC Sodium Bicarbonate 50 meq/Dextrose 1,050 ml @ 125 mls/hr 1X ONCE IV Last administered on 10/11/18at 00:01; Start 10/10/18 at 23:55; Stop 10/11/18 at 08:18; Status DC Piperacillin Sod/ Tazobactam Sod 2.25 gm/Sodium Chloride 50 ml @ 100 mls/hr Q6HRS IV Last administered on 10/11/18at 05:30; Start 10/11/18 at 06:00; Stop 10/11/18 at 08:25; Status DC Meropenem 500 mg/ Sodium Chloride 50 ml @ 100 mls/hr Q8HRS IV ; Start 10/11/18 at 14:00; Stop 10/11/18 at 14:00; Status DC Ondansetron HCl (Zofran) 4 mg 1X ONCE IV Last administered on 10/11/18at 06:41; Start 10/11/18 at 06:45; Stop 10/11/18 at 06:46; Status DC Thiamine HCl 100 mg/Dextrose 51 ml @ 102 mls/hr 1X ONCE IV Last administered on 10/11/18at 07:40; Start 10/11/18 at 07:00; Stop 10/11/18 at 07:29; Status DC Folic Acid (Folic Acid) 1 mg DAILY PO ; Start 10/11/18 at 09:00; Stop 10/12/18 at 09:03; Status DC Levofloxacin/ Dextrose 50 ml @ 50 mls/hr 1X ONCE IV Last administered on 10/11/18at 07:42; Start 10/11/18 at 07:00; Stop 10/11/18 at 07:59; Status DC Albuterol Sulfate (Ventolin Neb Soln) 2.5 mg PRN Q4HRS PRN NEB SHORTNESS OF BREATH Last administered on 10/14/18at 03:05; Start 10/11/18 at 07:15 Lorazepam (Ativan) 1 mg 1X ONCE IV Last administered on 10/11/18at 07:37; Start 10/11/18 at 07:30; Stop 10/11/18 at 09:35; Status DC Lorazepam (Ativan) 1 mg PRN Q3HRS PRN IV ANXIETY / AGITATION; Start 10/11/18 at 08:00; Stop 10/11/18 at 09:35; Status DC Piperacillin Sod/ Tazobactam Sod 2.25 gm/Sodium Chloride 50 ml @ 100 mls/hr Q8HRS IV Last administered on 10/13/18at 05:34; Start 10/11/18 at 14:00; Stop 10/13/18 at 08:15; Status DC Ondansetron HCl (Zofran) 4 mg PRN Q6HRS PRN IV NAUSEA/VOMITING; Start 10/11/18 at 08:45 Lactulose (Lactulose) 30 gm TID PO ; Start 10/11/18 at 09:30; Stop 10/11/18 at 11:25; Status DC Sodium Bicarbonate 50 meq/Dextrose 1,050 ml @ 60 mls/hr [id number] IV Last administered on 10/12/18at 02:21; Start 10/11/18 at 10:00; Stop 10/12/18 at 10:58; Status DC Dexmedetomidine HCl 200 mcg/ Sodium Chloride 50 ml @ 0 mls/hr CONT PRN IV PER PROTOCOL Last administered on 10/13/18at 07:33; Start 10/11/18 at 09:45 Sodium Chloride 500 ml @ 500 mls/hr 1X PRN PRN IV SEE COMMENTS; Start 10/11/18 at 09:45 Atropine Sulfate (ATROPINE 0.5mg SYRINGE) 0.5 mg PRN Q5MIN PRN IV SEE COMMENTS; Start 10/11/18 at 09:45 Sodium Bicarbonate (Sodium Bicarb Adult 8.4% Syr) 50 meq STK-MED ONCE .ROUTE ; Start 10/11/18 at 09:42; Stop 10/11/18 at 09:43; Status DC Sodium Bicarbonate (Sodium Bicarb Adult 8.4% Syr) 100 meq 1X ONCE IV Last administered on 10/11/18at 10:00; Start 10/11/18 at 10:00; Stop 10/11/18 at 10:01; Status DC Lactulose (Lactulose) 30 gm TID SC ; Start 10/11/18 at 12:00; Stop 10/11/18 at 13:06; Status DC Lidocaine/Sodium Bicarbonate (Buffered Lidocaine 1%) 3 ml STK-MED ONCE .ROUTE ; Start 10/11/18 at 12:34; Stop 10/11/18 at 12:35; Status DC Heparin Sodium (Porcine) (Heparin Sodium) 10,000 unit STK-MED ONCE .ROUTE ; Start 10/11/18 at 12:34; Stop 10/11/18 at 12:35; Status DC Lactulose (Lactulose) 200 gm TID SC Last administered on 10/11/18at 20:55; Start 10/11/18 at 14:00; Stop 10/12/18 at 09:22; Status DC Sodium Chloride 1,000 ml @ 1,000 mls/hr Q1H PRN IV hypotension; Start 10/11/18 at 13:06; Stop 10/11/18 at 19:05; Status DC Albumin Human 200 ml @ 200 mls/hr 1X PRN PRN IV Hypotension; Start 10/11/18 at 13:15; Stop 10/11/18 at 19:14; Status DC Sodium Chloride (Normal Saline Flush) 10 ml 1X PRN PRN IV AP catheter pack; Start 10/11/18 at 13:15; Stop 10/12/18 at 13:14; Status DC Sodium Chloride (Normal Saline Flush) 10 ml 1X PRN PRN IV CODE ENFORCEMENT INSPECTOR catheter pack; Start 10/11/18 at 13:15; Stop 10/12/18 at 13:14; Status DC Sodium Chloride 1,000 ml @ 400 mls/hr Q2H30M PRN IV PATENCY; Start 10/11/18 at 13:06; Stop 10/12/18 at 01:05; Status DC Info (PHARMACY MONITORING -- do not chart) 1 each PRN DAILY PRN MC SEE COMMENTS; Start 10/11/18 at 13:15; Status UNV Info (PHARMACY MONITORING -- do not chart) 1 each PRN DAILY PRN MC SEE COMMENTS; Start 10/11/18 at 13:15 Lidocaine/Sodium Bicarbonate (Buffered Lidocaine 1%) 6 ml 1X ONCE INJ Last administered on 10/11/18at 13:42; Start 10/11/18 at 13:45; Stop 10/11/18 at 13:46; Status DC Potassium Chloride/Water 50 ml @ 50 mls/hr 1X ONCE IV Last administered on 10/12/18at 09:30; Start 10/12/18 at 09:00; Stop 10/12/18 at 09:59; Status DC Lactulose (Lactulose) 200 gm PRN TID PRN SC CONFUSION Last administered on 10/12/18at 11:37; Start 10/12/18 at 09:30 Amino Acids/ Glycerin/ Electrolytes 1,000 ml @ 60 mls/hr [id number] IV Last administered on 10/15/18at 08:19; Start 10/12/18 at 10:00 Amino Acids/ Glycerin/ Electrolytes 1,000 ml @ As Directed STK-MED ONCE IV ; Start 10/12/18 at 09:58; Stop 10/12/18 at 09:59; Status DC Pantoprazole Sodium (PROTONIX VIAL for IV PUSH) 40 mg BID IVP Last administered on 10/15/18at 08:20; Start 10/12/18 at 21:00 Albumin Human 50 ml @ 50 mls/hr 1X ONCE IV Last administered on 10/12/18at 18:04; Start 10/12/18 at 18:00; Stop 10/12/18 at 18:59; Status DC Potassium Chloride/Water 100 ml @ 100 mls/hr Q1H IV Last administered on 10/13/18at 11:33; Start 10/13/18 at 07:00; Stop 10/13/18 at 10:59; Status DC Piperacillin Sod/ Tazobactam Sod 2.25 gm/Sodium Chloride 50 ml @ 100 mls/hr Q6HRS IV Last administered on 10/14/18at 05:59; Start 10/13/18 at 12:00; Stop 10/14/18 at 08:32; Status DC Potassium Chloride/Water 50 ml @ 50 mls/hr PRN Q1HR PRN IV SEE ORDER COMMENTS; Start 10/13/18 at 10:45 Potassium Chloride/Water 50 ml @ 50 mls/hr PRN Q1HR PRN IV SEE ORDER COMMENTS; Start 10/13/18 at 10:45 Potassium Chloride/Water 50 ml @ 50 mls/hr PRN Q1HR PRN IV SEE ORDER COMMENTS; Start 10/13/18 at 11:00 Metoprolol Tartrate (Lopressor Vial) 2.5 mg Q6HRS IVP Last administered on 10/13/18at 16:51; Start 10/13/18 at 15:00; Stop 10/13/18 at 17:22; Status DC Metoprolol Tartrate (Lopressor Vial) 5 mg Q6HRS IVP Last administered on 10/14/18at 05:25; Start 10/13/18 at 18:00; Stop 10/14/18 at 08:54; Status DC Digoxin (Lanoxin) 500 mcg 1X ONCE IV Last administered on 10/13/18at 17:37; Start 10/13/18 at 17:30; Stop 10/13/18 at 17:31; Status DC Potassium Chloride/Water 50 ml @ 0 mls/hr Q1H IV Last administered on 10/14/18at 11:50; Start 10/14/18 at 09:00; Stop 10/14/18 at 12:01; Status DC Diltiazem HCl 125 mg/Dextrose 125 ml @ 5 mls/hr CONT PRN IV SEE I/O RECORD Last administered on 10/14/18at 18:12; Start 10/14/18 at 09:00 Diltiazem HCl (Cardizem Iv Push) 10 mg 1X ONCE IVP Last administered on 10/14/18at 09:06; Start 10/14/18 at 09:00; Stop 10/14/18 at 09:01; Status DC Metoprolol Tartrate (Lopressor Vial) 5 mg PRN Q6HRS PRN IVP HYPERTENSION, SEE COMMENTS; Start 10/14/18 at 09:00 Potassium Phosphate 15 mmol/ Sodium Chloride 255 ml @ 127.5 mls/ hr 1X ONCE IV Last administered on 10/14/18 11:17; Start 10/14/18 at 11:00; Stop 10/14/18 at 12:59; Status DC Fentanyl Citrate (Fentanyl 2ml Vial) 50 mcg PRN Q2HR PRN IV PAIN Last administered on 10/15/18 08:20; Start 10/14/18 at 13:00 Meropenem 500 mg/ Sodium Chloride 50 ml @ 100 mls/hr Q6HRS IV Last administered on 10/15/18at 08:20; Start 10/15/18 at 08:00 Active Scripts Active Lactulose 20 Gm/30 Ml Solution 20 Gm PO PRN TID PRN 30 Days Klor-Con M20 (Potassium Chloride) 20 Meq Tab.er.prt 40 Meq PO DAILY 30 Days [Pantoprazole] 40 MG Tablet.dr 40 Mg PO DAILYAC 30 Days Hydroxyzine Pamoate 25 Mg Capsule 25 Mg PO PRN Q8HRS PRN 30 Days Aspirin Ec (Aspirin) 81 Mg Tablet.dr 81 Mg PO DAILYWBKFT 30 Days [Diltiazem Hcl] 240 MG Cap.er.24h 240 Mg PO DAILY 30 Days Metoprolol Tartrate 25 Mg Tablet 25 Mg PO BID 30 Days Vitamin B-1 (Thiamine Mononitrate) 100 Mg Tablet 100 Mg PO DAILY Hydrocodone-Apap 7.5-325 (Hydrocodone Bit/Acetaminophen) 1 Each Tablet 1 Tab PO PRN Q3HRS PRN Folic Acid 1 Mg Tablet 1 Mg PO DAILY Reported Tums (Calcium Carbonate) 300 Mg Tab.chew 300 Mg PO TIDAC PRN Cyclobenzaprine Hcl 10 Mg Tablet 1 Tab PO QHS Gabapentin (Gabapentin) 300 Mg Capsule 300 Mg PO TID Vitals/I & O Vital Sign - Last 24 Hours 10/14/18 10/14/18 10/14/18 10/14/18 12:00 12:57 16:00 20:00 Temp 97.9 98.0 97.9 98.0 Pulse 103 94 Resp 22 22 B/P (MAP) 133/88 (103) 143/71 (95) Pulse Ox 94 95 95 O2 Delivery Room Air Room Air Room Air Room Air 10/14/18 10/14/18 10/15/18 10/15/18 20:00 23:59 04:00 08:00 Temp 98.0 97.9 97.9 98.0 97.9 97.9 Pulse 86 92 96 Resp 22 22 25 B/P (MAP) 131/88 (102) 160/81 (107) 144/72 (96) Pulse Ox 95 95 95 O2 Delivery Room Air Room Air Room Air Room Air 10/15/18 08:00 Temp 98.2 98.2 Pulse 94 Resp 24 B/P (MAP) 154/83 (106) Pulse Ox 94 O2 Delivery Room Air Intake and Output 10/14/18 10/14/18 10/15/18 15:00 23:00 07:00 Intake Total 706.57 ml Output Total 500 ml 500 ml 1500 ml Balance -500 ml 206.57 ml -1500 ml JESU MORENO MD October 15, 2018 09:27
--- NOTE | 2018-10-15 09:58 | PDOC ---
Subjective: Subjective: Feels the same. Objective: Objective: Reviewed w/ RN - more calm today, on Fentanyl and PPN, no stools/bleeding, asks about diet. D/w Dr. Burgos - back on atbx considering increasing WBC yesterday. Vital Signs: Vital Signs Date Time Temp Pulse Resp B/P (MAP) Pulse Ox O2 Delivery O2 Flow Rate FiO2 10/15/18 08:00 98.2 94 24 154/83 (106) 94 Room Air 98.2 Labs: Laboratory Tests Test 10/15/18 05:35 Sodium Level 134 mmol/L Potassium Level 3.2 mmol/L Chloride Level 100 mmol/L Carbon Dioxide Level 24 mmol/L Anion Gap 10 Blood Urea Nitrogen 21 mg/dL Creatinine 1.0 mg/dL Estimated GFR (Cockcroft-Gault) 75.7 Glucose Level 111 mg/dL Calcium Level 8.2 mg/dL Phosphorus Level 2.4 mg/dL Magnesium Level 1.7 mg/dL Imaging: CT A/P 10/14 IMPRESSION: 1. Persistent mural thickening involving the cecum raising the possibility of neoplasm versus nonspecific colitis. 2. A small amount of free fluid has developed in the abdomen and pelvis. 3. Mild generalized mesenteric edema. 4. Increasing small right pleural effusion and new small left pleural effusion with mild bibasilar atelectasis. 5. Cholelithiasis. PE: GEN: NAD LUNGS: CTAB HEART: RR ABD: quiet with occasional groan, still quite tender RLQ NEURO/PSYCH: appropriate A/P: Abd pain, abnormal cecum on CT - interval CT as above Hep C, shock liver, hepatic steatosis - AST, ALT, and INR improved, bili remains elevated ALLI - stable A Fib -- Will review w/ Dr. Esteban. JASIEL WALSH October 15, 2018 09:58
[2018-10-15] MEDS: POTASSIUM CHL 20MEQ PREMIX 50 ML IV SCH ×2 (10:06→11:01)
--- NOTE | 2018-10-15 10:16 | PDOC ---
Renal-Progress Notes Subjective Notes Notes LESS CONFUSED History of Present Illness Hx of present illness BETTER Vitals Vitals Vital Signs Date Time Temp Pulse Resp B/P (MAP) Pulse Ox O2 Delivery O2 Flow Rate FiO2 10/15/18 08:00 98.2 94 24 154/83 (106) 94 Room Air 98.2 Weight Weight [ ] I.O. Intake and Output Intake and Output 10/15/18 06:59 Intake Total 706.57 ml Output Total 2575 ml Balance -1868.43 ml IV Total 706.57 ml Output Urine Total 2575 ml Labs Labs Laboratory Tests Test 10/15/18 05:35 Sodium Level 134 mmol/L (136-145) Potassium Level 3.2 mmol/L (3.5-5.1) Chloride Level 100 mmol/L (98-107) Carbon Dioxide Level 24 mmol/L (21-32) Anion Gap 10 (6-14) Blood Urea Nitrogen 21 mg/dL (8-26) Creatinine 1.0 mg/dL (0.7-1.3) Estimated GFR (Cockcroft-Gault) 75.7 Glucose Level 111 mg/dL (70-99) Calcium Level 8.2 mg/dL (8.5-10.1) Phosphorus Level 2.4 mg/dL (2.6-4.7) Magnesium Level 1.7 mg/dL (1.8-2.4) Micro Micro Microbiology 10/10/18 Blood Culture - Preliminary, Resulted NO GROWTH AFTER 4 DAYS 10/12/18 Stool Culture - Final, Resulted 10/12/18 Stool Culture Result 1 (JABIER) - Final, Resulted 10/12/18 Campylobacter Antigen Assay - Preliminary, Resulted 10/12/18 Campylobactor Result 1 - Preliminary, Resulted 10/12/18 Shiga Toxin Test - Final, Resulted Review of Systems Constitutional: yes: other (CONFUSED) Physical Exam General Appearance: no apparent distress Skin: warm Respiratory: decreased breath sounds Heart: S1S2 Abdomen: soft, bowel sounds present Genitourinary: bladder flat Extremities: pulses present Neurology: alert, oriented, follow commands, confused Assessment Assessment IMP NATHANIEL-IMPROVING UO AND CLEARANCE MET ACIDOSIS-RESOLVED MET ENCEPHALOPATHY SEPSIS ANEMIA AFIB RVR LIVER FAILURE WITH HEP C-IMPROVING LFT'S COAGULOPATHY HYPOKALEMIA LOW PO4, LOW MAG LEUCOCYTOSIS PLAN CONT HYDRATION PPN ANTIBIOTICS PRESSORS NEEDED NO MORE DIALYSIS PLANNED REPLACE K AND PO4 AND MAG SUJATHA VOSS MD October 15, 2018 10:16
[2018-10-15] MEDS ORDERED: MAGNESIUM SULFATE 2GM 50 ML IV ONE (10:30)
[2018-10-15] MEDS ORDERED: SODIUM PHOSPHATE 20 MMOL in IV DEXTROSE 5% 250 ML IV ONE (10:30)
[2018-10-15] MEDS: dilTIAZem INJ 125 MG in IV DEXTROSE 5% 100ML 100 ML IV PRN ×2 (11:13→18:33)
--- NOTE | 2018-10-15 11:52 | PDOC ---
CARDIO Progress Notes Date and Time Date of Service 10/15/2018 Time of Evaluation 1130 Subjective Subjective: No Chest Pain, No shortness of breath, No Palpitations, Other (abdominal pain when moving) Vitals Vitals Vital Signs Date Time Temp Pulse Resp B/P (MAP) Pulse Ox O2 Delivery O2 Flow Rate FiO2 10/15/18 08:00 98.2 94 24 154/83 (106) 94 Room Air 98.2 Weight Weight [ ] Input and Output Intake and Output Intake and Output 10/15/18 07:00 Intake Total 706.57 ml Output Total 2500 ml Balance -1793.43 ml IV Total 706.57 ml Output Urine Total 2500 ml Laboratory Labs Laboratory Tests Test 10/15/18 05:35 Sodium Level 134 mmol/L (136-145) Potassium Level 3.2 mmol/L (3.5-5.1) Chloride Level 100 mmol/L (98-107) Carbon Dioxide Level 24 mmol/L (21-32) Anion Gap 10 (6-14) Blood Urea Nitrogen 21 mg/dL (8-26) Creatinine 1.0 mg/dL (0.7-1.3) Estimated GFR (Cockcroft-Gault) 75.7 Glucose Level 111 mg/dL (70-99) Calcium Level 8.2 mg/dL (8.5-10.1) Phosphorus Level 2.4 mg/dL (2.6-4.7) Magnesium Level 1.7 mg/dL (1.8-2.4) Microbiology Micro Microbiology 10/10/18 Blood Culture - Preliminary, Resulted NO GROWTH AFTER 4 DAYS 10/12/18 Stool Culture - Final, Resulted 10/12/18 Stool Culture Result 1 (JABIER) - Final, Resulted 10/12/18 Campylobacter Antigen Assay - Preliminary, Resulted 10/12/18 Campylobactor Result 1 - Preliminary, Resulted 10/12/18 Shiga Toxin Test - Final, Resulted Review of Systems Constitutional: yes: other (CONFUSED) Physical Exam HEENT: Neck Supple W Full Motion Chest: Symmetric LUNGS: Other (diminished bases) Heart: irregularly irregular (AFIB ) Abdomen: Soft N/T Extremities: No Edema, Other (2+ bilateral LE pitting edema) Neurology: alert, oriented, follow commands, confused Assessment Assessment 1. Acute respiratory failure 2. Persistent AFIB: rate controlled 3. Sepsis: ID following 4. GI bleed; s/p 1 unit PRBCs. Hgb 8.8 5. Coagulopathy with past ETOH use and Hep C, cirrhosis. s/p FFP. INR 1.7 GI following 6. Shock liver/Cirrhosis/cholelithiasis with possible colitis: General surgery consult pending 7. Hypertension; adequate 8. Suspect COPD with continued tobaccoism: moderate pulmonary hypertension 9. NATHANIEL on CKD: improved 10. Metabolic encephalopathy 12. Hypokalemia Recommendations IV lopressor change to PRN. Continue cardizem drip. Remains NPO ASA VT or PO once GI allows for stroke prevention. Replace K and Mg as warranted. Supportive care MARY JANE POTTER [employer]UC[employer] October 15, 2018 11:52
--- NOTE | 2018-10-15 12:42 | NUR ---
SS following up with discharge planning. PT/OT ordered. SS will await PT/OT evaluations and recommendations and will proceed accordingly with discharge planning.
--- NOTE | 2018-10-15 13:41 | PDOC ---
[facility] PROGRESS NOTE Chief Complaint Chief Complaint Found down by a neighbor with Transaminaseitis and mental status change (AST 4514, ALT 1550, Lactate 14.9. WBC 14.7, Hb 6.5 with bright red blood per rectum ) Abd pain, abnormal cecum on CT Hep C, shock liver ALLI A Fib Severe metabolic encephalopathy History of Present Illness History of Present Illness Patient seen and examined in the intensive care unit He is slightly more alert. Actually able to talk today I discussed the case with his nurse I reviewed the chart Vitals Vitals Vital Signs Date Time Temp Pulse Resp B/P (MAP) Pulse Ox O2 Delivery O2 Flow Rate FiO2 10/15/18 12:00 98.3 88 25 150/88 (108) 95 Room Air 98.3 Physical Exam Physical Exam GENERAL: alert awake HENT: PERRL. Oral cavity dry LUNGS: Clear CV: S1 S2 irregular ABD: Soft, tenderness in RLQ , no rebound or guarding : Rodriguez EXT: No gross edema or cyanosis SKIN: No generalized rash COUNTER HOP:awake , alert ,nonfocal Nontunneled RIJ/HDC (10/11) clean General: Other (sleepy) Heart: Regular rate, Normal S1, Other (irregularly irregular) Lungs: Clear, Other (decrease bs) Abdomen: Normal bowel sounds Extremities: No clubbing Skin: No breakdown, No significant lesion Labs LABS Laboratory Tests Test 10/15/18 05:35 Sodium Level 134 mmol/L (136-145) Potassium Level 3.2 mmol/L (3.5-5.1) Chloride Level 100 mmol/L (98-107) Carbon Dioxide Level 24 mmol/L (21-32) Anion Gap 10 (6-14) Blood Urea Nitrogen 21 mg/dL (8-26) Creatinine 1.0 mg/dL (0.7-1.3) Estimated GFR (Cockcroft-Gault) 75.7 Glucose Level 111 mg/dL (70-99) Calcium Level 8.2 mg/dL (8.5-10.1) Phosphorus Level 2.4 mg/dL (2.6-4.7) Magnesium Level 1.7 mg/dL (1.8-2.4) Review of Systems Review of Systems Complains of hunger complains of pain Assessment and Plan Assessmemt and Plan Problems Medical Problems: (1) Lactic acidosis Status: Acute (2) Liver failure Status: Acute (3) Pneumonia Status: Acute (4) Renal failure Status: Acute Sepsis Metabolic encephalopathy Respiratory failure Alcoholism Shock liver Hypokalemia Hep C Coagulopathy Possible ischemic bowel Plan ICU monitoring GI has consult surgery and I agree EtOH withdrawal protocol when necessary IV lopressor PRN. Cardizem drip. NPO Monitor labs Full code DVT prophylaxis Total time 31 minutes Comment Review of Relevant I have reviewed the following items daysi (where applicable) has been applied. Labs Laboratory Tests Test 10/14/18 06:00 10/15/18 05:35 White Blood Count 15.8 x10^3/uL (4.0-11.0) Red Blood Count 4.32 x10^6/uL (4.30-5.70) Hemoglobin 8.8 g/dL (13.0-17.5) Hematocrit 28.8 % (39.0-53.0) Mean Corpuscular Volume 67 fL (79-100) Mean Corpuscular Hemoglobin 20 pg (25-35) Mean Corpuscular Hemoglobin Concent 30 g/dL (31-37) Red Cell Distribution Width 28.4 % (11.5-14.5) Platelet Count 83 x10^3/uL (140-400) Prothrombin Time 20.1 SEC (11.7-14.0) Prothromb Time International Ratio 1.7 (0.8-1.1) Sodium Level 134 mmol/L (136-145) 134 mmol/L (136-145) Potassium Level 3.0 mmol/L (3.5-5.1) 3.2 mmol/L (3.5-5.1) Chloride Level 99 mmol/L (98-107) 100 mmol/L (98-107) Carbon Dioxide Level 29 mmol/L (21-32) 24 mmol/L (21-32) Anion Gap 6 (6-14) 10 (6-14) Blood Urea Nitrogen 29 mg/dL (8-26) 21 mg/dL (8-26) Creatinine 1.2 mg/dL (0.7-1.3) 1.0 mg/dL (0.7-1.3) Estimated GFR (Cockcroft-Gault) 61.3 75.7 Glucose Level 97 mg/dL (70-99) 111 mg/dL (70-99) Calcium Level 8.1 mg/dL (8.5-10.1) 8.2 mg/dL (8.5-10.1) Phosphorus Level 2.2 mg/dL (2.6-4.7) 2.4 mg/dL (2.6-4.7) Magnesium Level 1.8 mg/dL (1.8-2.4) 1.7 mg/dL (1.8-2.4) Total Bilirubin 3.9 mg/dL (0.2-1.0) Direct Bilirubin 2.8 mg/dL (0.0-0.2) Aspartate Amino Transf (AST/SGOT) 448 U/L (15-37) Alanine Aminotransferase (ALT/SGPT) 908 U/L (16-63) Alkaline Phosphatase 101 U/L (46-116) Total Protein 5.1 g/dL (6.4-8.2) Albumin 2.3 g/dL (3.4-5.0) Laboratory Tests Test 10/15/18 05:35 Sodium Level 134 mmol/L (136-145) Potassium Level 3.2 mmol/L (3.5-5.1) Chloride Level 100 mmol/L (98-107) Carbon Dioxide Level 24 mmol/L (21-32) Anion Gap 10 (6-14) Blood Urea Nitrogen 21 mg/dL (8-26) Creatinine 1.0 mg/dL (0.7-1.3) Estimated GFR (Cockcroft-Gault) 75.7 Glucose Level 111 mg/dL (70-99) Calcium Level 8.2 mg/dL (8.5-10.1) Phosphorus Level 2.4 mg/dL (2.6-4.7) Magnesium Level 1.7 mg/dL (1.8-2.4) Microbiology 10/10/18 Blood Culture - Preliminary, Resulted NO GROWTH AFTER 4 DAYS 10/12/18 Stool Culture - Final, Resulted 10/12/18 Stool Culture Result 1 (JABIER) - Final, Resulted 10/12/18 Campylobacter Antigen Assay - Preliminary, Resulted 10/12/18 Campylobactor Result 1 - Preliminary, Resulted 10/12/18 Shiga Toxin Test - Final, Resulted Medications Current Medications Sodium Chloride 1,000 ml @ 1,000 mls/hr 1X ONCE IV Last administered on 10/10/18at 22:43; Start 10/10/18 at 22:00; Stop 10/10/18 at 22:59; Status DC Sodium Chloride 1,000 ml @ 1,000 mls/hr 1X ONCE IV Last administered on 10/10/18at 22:42; Start 10/10/18 at 22:00; Stop 10/10/18 at 22:59; Status DC Piperacillin Sod/ Tazobactam Sod (Zosyn Per Pharmacy) 1 each PRN DAILY PRN MC SEE COMMENTS; Start 10/10/18 at 22:00; Stop 10/10/18 at 22:33; Status DC Piperacillin Sod/ Tazobactam Sod 3.375 gm/Sodium Chloride 50 ml @ 100 mls/hr 1X ONCE IV Last administered on 10/10/18at 22:44; Start 10/10/18 at 22:15; Stop 10/10/18 at 22:44; Status DC Sodium Bicarbonate (Sodium Bicarb Adult 8.4% Syr) 50 meq 1X ONCE IV Last administered on 10/10/18at 22:43; Start 10/10/18 at 22:30; Stop 10/10/18 at 22:31; Status DC Calcium Gluconate (Calcium Gluconate) 1,000 mg 1X ONCE IVP Last administered on 10/10/18at 22:43; Start 10/10/18 at 22:30; Stop 10/10/18 at 22:31; Status DC Piperacillin Sod/ Tazobactam Sod (Zosyn Per Pharmacy) 1 each PRN DAILY PRN MC SEE COMMENTS; Start 10/10/18 at 22:45; Stop 10/14/18 at 08:32; Status DC Pantoprazole Sodium 80 mg/ Sodium Chloride 100 ml @ 10 mls/hr Q10H IV Last administered on 10/12/18at 08:31; Start 10/10/18 at 23:30; Stop 10/12/18 at 14:57; Status DC Phytonadione 10 mg/Dextrose 51 ml @ 102 mls/hr 1X ONCE IV Last administered on 10/10/18at 23:46; Start 10/10/18 at 23:30; Stop 10/10/18 at 23:59; Status DC Octreotide Acetate 500 mcg/ Sodium Chloride 101 ml @ 0 mls/hr CONT PRN IV SEE I/O RECORD Last administered on 10/12/18at 08:32; Start 10/10/18 at 23:45; Stop 10/12/18 at 14:57; Status DC Sodium Bicarbonate 50 meq/Dextrose 1,050 ml @ 125 mls/hr 1X ONCE IV Last administered on 10/11/18at 00:01; Start 10/10/18 at 23:55; Stop 10/11/18 at 08:18; Status DC Piperacillin Sod/ Tazobactam Sod 2.25 gm/Sodium Chloride 50 ml @ 100 mls/hr Q6HRS IV Last administered on 10/11/18at 05:30; Start 10/11/18 at 06:00; Stop 10/11/18 at 08:25; Status DC Meropenem 500 mg/ Sodium Chloride 50 ml @ 100 mls/hr Q8HRS IV ; Start 10/11/18 at 14:00; Stop 10/11/18 at 14:00; Status DC Ondansetron HCl (Zofran) 4 mg 1X ONCE IV Last administered on 10/11/18at 06:41; Start 10/11/18 at 06:45; Stop 10/11/18 at 06:46; Status DC Thiamine HCl 100 mg/Dextrose 51 ml @ 102 mls/hr 1X ONCE IV Last administered on 10/11/18at 07:40; Start 10/11/18 at 07:00; Stop 10/11/18 at 07:29; Status DC Folic Acid (Folic Acid) 1 mg DAILY PO ; Start 10/11/18 at 09:00; Stop 10/12/18 at 09:03; Status DC Levofloxacin/ Dextrose 50 ml @ 50 mls/hr 1X ONCE IV Last administered on 10/11at 07:42; Start 10/11/18 at 07:00; Stop 10/11/18 at 07:59; Status DC Albuterol Sulfate (Ventolin Neb Soln) 2.5 mg PRN Q4HRS PRN NEB SHORTNESS OF BREATH Last administered on 10/14/18at 03:05; Start 10/11/18 at 07:15 Lorazepam (Ativan) 1 mg 1X ONCE IV Last administered on 10/11/18at 07:37; Start 10/11/18 at 07:30; Stop 10/11/18 at 09:35; Status DC Lorazepam (Ativan) 1 mg PRN Q3HRS PRN IV ANXIETY / AGITATION; Start 10/11/18 at 08:00; Stop 10/11/18 at 09:35; Status DC Piperacillin Sod/ Tazobactam Sod 2.25 gm/Sodium Chloride 50 ml @ 100 mls/hr Q8HRS IV Last administered on 10/13/18at 05:34; Start 10/11/18 at 14:00; Stop 10/13/18 at 08:15; Status DC Ondansetron HCl (Zofran) 4 mg PRN Q6HRS PRN IV NAUSEA/VOMITING; Start 10/11/18 at 08:45 Lactulose (Lactulose) 30 gm TID PO ; Start 10/11/18 at 09:30; Stop 10/11/18 at 11:25; Status DC Sodium Bicarbonate 50 meq/Dextrose 1,050 ml @ 60 mls/hr [id number] IV Last administered on 10/12/18at 02:21; Start 10/11/18 at 10:00; Stop 10/12/18 at 10:58; Status DC Dexmedetomidine HCl 200 mcg/ Sodium Chloride 50 ml @ 0 mls/hr CONT PRN IV PER PROTOCOL Last administered on 10/13/18at 07:33; Start 10/11/18 at 09:45 Sodium Chloride 500 ml @ 500 mls/hr 1X PRN PRN IV SEE COMMENTS; Start 10/11/18 at 09:45 Atropine Sulfate (ATROPINE 0.5mg SYRINGE) 0.5 mg PRN Q5MIN PRN IV SEE COMMENTS; Start 10/11/18 at 09:45 Sodium Bicarbonate (Sodium Bicarb Adult 8.4% Syr) 50 meq STK-MED ONCE .ROUTE ; Start 10/11/18 at 09:42; Stop 10/11/18 at 09:43; Status DC Sodium Bicarbonate (Sodium Bicarb Adult 8.4% Syr) 100 meq 1X ONCE IV Last administered on 10/11/18at 10:00; Start 10/11/18 at 10:00; Stop 10/11/18 at 10:01; Status DC Lactulose (Lactulose) 30 gm TID SD ; Start 10/11/18 at 12:00; Stop 10/11/18 at 13:06; Status DC Lidocaine/Sodium Bicarbonate (Buffered Lidocaine 1%) 3 ml STK-MED ONCE .ROUTE ; Start 10/11/18 at 12:34; Stop 10/11/18 at 12:35; Status DC Heparin Sodium (Porcine) (Heparin Sodium) 10,000 unit STK-MED ONCE .ROUTE ; Start 10/11/18 at 12:34; Stop 10/11/18 at 12:35; Status DC Lactulose (Lactulose) 200 gm TID SD Last administered on 10/11/18at 20:55; Start 10/11/18 at 14:00; Stop 10/12/18 at 09:22; Status DC Sodium Chloride 1,000 ml @ 1,000 mls/hr Q1H PRN IV hypotension; Start 10/11/18 at 13:06; Stop 10/11/18 at 19:05; Status DC Albumin Human 200 ml @ 200 mls/hr 1X PRN PRN IV Hypotension; Start 10/11/18 at 13:15; Stop 10/11/18 at 19:14; Status DC Sodium Chloride (Normal Saline Flush) 10 ml 1X PRN PRN IV AP catheter pack; Start 10/11/18 at 13:15; Stop 10/12/18 at 13:14; Status DC Sodium Chloride (Normal Saline Flush) 10 ml 1X PRN PRN IV PACKER DRIED BEEF catheter pack; Start 10/11/18 at 13:15; Stop 10/12/18 at 13:14; Status DC Sodium Chloride 1,000 ml @ 400 mls/hr Q2H30M PRN IV PATENCY; Start 10/11/18 at 13:06; Stop 10/12/18 at 01:05; Status DC Info (PHARMACY MONITORING -- do not chart) 1 each PRN DAILY PRN MC SEE COMMENTS; Start 10/11/18 at 13:15; Status UNV Info (PHARMACY MONITORING -- do not chart) 1 each PRN DAILY PRN MC SEE COMMENTS; Start 10/11/18 at 13:15 Lidocaine/Sodium Bicarbonate (Buffered Lidocaine 1%) 6 ml 1X ONCE INJ Last administered on 10/11/18at 13:42; Start 10/11/18 at 13:45; Stop 10/11/18 at 13:46; Status DC Potassium Chloride/Water 50 ml @ 50 mls/hr 1X ONCE IV Last administered on 10/12/18at 09:30; Start 10/12/18 at 09:00; Stop 10/12/18 at 09:59; Status DC Lactulose (Lactulose) 200 gm PRN TID PRN SD CONFUSION Last administered on 10/12/18at 11:37; Start 10/12/18 at 09:30 Amino Acids/ Glycerin/ Electrolytes 1,000 ml @ 60 mls/hr [id number] IV Last administered on 10/15/18at 08:19; Start 10/12/18 at 10:00 Amino Acids/ Glycerin/ Electrolytes 1,000 ml @ As Directed STK-MED ONCE IV ; Start 10/12/18 at 09:58; Stop 10/12/18 at 09:59; Status DC Pantoprazole Sodium (PROTONIX VIAL for IV PUSH) 40 mg BID IVP Last administered on 10/15/18at 08:20; Start 10/12/18 at 21:00 Albumin Human 50 ml @ 50 mls/hr 1X ONCE IV Last administered on 10/12/18at 18:04; Start 10/12/18 at 18:00; Stop 10/12/18 at 18:59; Status DC Potassium Chloride/Water 100 ml @ 100 mls/hr Q1H IV Last administered on 10/13/18at 11:33; Start 10/13/18 at 07:00; Stop 10/13/18 at 10:59; Status DC Piperacillin Sod/ Tazobactam Sod 2.25 gm/Sodium Chloride 50 ml @ 100 mls/hr Q6HRS IV Last administered on 10/14/18at 05:59; Start 10/13/18 at 12:00; Stop 10/14/18 at 08:32; Status DC Potassium Chloride/Water 50 ml @ 50 mls/hr PRN Q1HR PRN IV SEE ORDER COMMENTS; Start 10/13/18 at 10:45 Potassium Chloride/Water 50 ml @ 50 mls/hr PRN Q1HR PRN IV SEE ORDER COMMENTS; Start 10/13/18 at 10:45 Potassium Chloride/Water 50 ml @ 50 mls/hr PRN Q1HR PRN IV SEE ORDER COMMENTS; Start 10/13/18 at 11:00 Metoprolol Tartrate (Lopressor Vial) 2.5 mg Q6HRS IVP Last administered on 10/13/18at 16:51; Start 10/13/18 at 15:00; Stop 10/13/18 at 17:22; Status DC Metoprolol Tartrate (Lopressor Vial) 5 mg Q6HRS IVP Last administered on 10/14/18 05:25; Start 10/13/18 at 18:00; Stop 10/14/18 at 08:54; Status DC Digoxin (Lanoxin) 500 mcg 1X ONCE IV Last administered on 10/13/18 17:37; Start 10/13/18 at 17:30; Stop 10/13/18 at 17:31; Status DC Potassium Chloride/Water 50 ml @ 0 mls/hr Q1H IV Last administered on 10/14/18at 11:50; Start 10/14/18 at 09:00; Stop 10/14/18 at 12:01; Status DC Diltiazem HCl 125 mg/Dextrose 125 ml @ 5 mls/hr CONT PRN IV SEE I/O RECORD Last administered on 10/15/18 11:13; Start 10/14/18 at 09:00 Diltiazem HCl (Cardizem Iv Push) 10 mg 1X ONCE IVP Last administered on 10/14/18 09:06; Start 10/14/18 at 09:00; Stop 10/14/18 at 09:01; Status DC Metoprolol Tartrate (Lopressor Vial) 5 mg PRN Q6HRS PRN IVP HYPERTENSION, SEE COMMENTS; Start 10/14/18 at 09:00 Potassium Phosphate 15 mmol/ Sodium Chloride 255 ml @ 127.5 mls/ hr 1X ONCE IV Last administered on 10/14/18 11:17; Start 10/14/18 at 11:00; Stop 10/14/18 at 12:59; Status DC Fentanyl Citrate (Fentanyl 2ml Vial) 50 mcg PRN Q2HR PRN IV PAIN Last administered on 10/15/18 08:20; Start 10/14/18 at 13:00 Meropenem 500 mg/ Sodium Chloride 50 ml @ 100 mls/hr Q6HRS IV Last administered on 10/15/18 13:31; Start 10/15/18 at 08:00 Potassium Chloride/Water 50 ml @ 50 mls/hr Q1H IV Last administered on 10/15/18 11:01; Start 10/15/18 at 10:30; Stop 10/15/18 at 12:29; Status DC Magnesium Sulfate 50 ml @ 25 mls/hr 1X ONCE IV Last administered on 10/15/18at 12:22; Start 10/15/18 at 10:30; Stop 10/15/18 at 12:29; Status DC Sodium Phosphate 20 mmol/Dextrose 256.6667 ml @ 64.167 m... 1X ONCE IV Last administered on 10/15/18at 11:01; Start 10/15/18 at 10:30; Stop 10/15/18 at 14:29 Active Scripts Active Lactulose 20 Gm/30 Ml Solution 20 Gm PO PRN TID PRN 30 Days Klor-Con M20 (Potassium Chloride) 20 Meq Tab.er.prt 40 Meq PO DAILY 30 Days [Pantoprazole] 40 MG Tablet.dr 40 Mg PO DAILYAC 30 Days Hydroxyzine Pamoate 25 Mg Capsule 25 Mg PO PRN Q8HRS PRN 30 Days Aspirin Ec (Aspirin) 81 Mg Tablet.dr 81 Mg PO [id number] 30 Days [Diltiazem Hcl] 240 MG Cap.er.24h 240 Mg PO DAILY 30 Days Metoprolol Tartrate 25 Mg Tablet 25 Mg PO BID 30 Days Vitamin B-1 (Thiamine Mononitrate) 100 Mg Tablet 100 Mg PO DAILY Hydrocodone-Apap 7.5-325 (Hydrocodone Bit/Acetaminophen) 1 Each Tablet 1 Tab PO PRN Q3HRS PRN Folic Acid 1 Mg Tablet 1 Mg PO DAILY Reported Tums (Calcium Carbonate) 300 Mg Tab.chew 300 Mg PO TIDAC PRN Cyclobenzaprine Hcl 10 Mg Tablet 1 Tab PO QHS Gabapentin (Gabapentin) 300 Mg Capsule 300 Mg PO TID Vitals/I & O Vital Sign - Last 24 Hours 10/14/18 10/14/18 10/14/18 10/14/18 16:00 20:00 20:00 23:59 Temp 98.0 98.0 97.9 98.0 98.0 97.9 Pulse 94 86 92 Resp 22 22 22 B/P (MAP) 143/71 (95) 131/88 (102) 160/81 (107) Pulse Ox 95 95 95 O2 Delivery Room Air Room Air Room Air Room Air 10/15/18 10/15/18 10/15/18 10/15/18 04:00 08:00 08:00 12:00 Temp 97.9 98.2 98.3 97.9 98.2 98.3 Pulse 96 94 88 Resp 25 24 25 B/P (MAP) 144/72 (96) 154/83 (106) 150/88 (108) Pulse Ox 95 94 95 O2 Delivery Room Air Room Air Room Air Room Air Intake and Output 10/14/18 10/14/18 10/15/18 15:00 23:00 07:00 Intake Total 706.57 ml Output Total 500 ml 500 ml 1500 ml Balance -500 ml 206.57 ml -1500 ml JENNIFER WHITE III DO October 15, 2018 13:41
--- NOTE | 2018-10-15 15:02 | PDOC2 ---
CONSULT Date of Consult Date of Consult DATE: 10/15/18 TIME: 14:53 Reason for Consult Reason for Consult: RLQ abd pain Referring Physician Referring Physician: Katy Identification/Chief Complaint Chief Complaint RLQ pain Source Source: Chart review, Patient History of Present Illness Reason for Visit: 63 yo M found down at home. Critically ill upon admission, but is currently awake and alert. C/o RLQ abd pain, and then pain diffusely. Pt noted previously to have have thickening in sigmoid and rectum and cecum. Thickening in right colon persists on repeat CT with some free fluid, but no pneumoperitoneum. Pt has been asking about food. Past Medical History Cardiovascular: AFIB, HTN Pulmonary: No pertinent hx GI: GERD, GI bleed Heme/Onc: No pertinent hx Hepatobiliary: Hep A/B/C (C) Rheumatologic: No pertinent hx Renal/: No pertinent hx Endocrine: No pertinent hx Dermatology: No pertinent hx Past Surgical History Past Surgical History: No pertinent history Family History Family History: Alzheimer's Disease Social History Quit ALCOHOL: occassional Drugs: None Current Problem List Problem List Problems Medical Problems: (1) Lactic acidosis Status: Acute (2) Liver failure Status: Acute (3) Pneumonia Status: Acute (4) Renal failure Status: Acute Current Medications Current Medications Current Medications Sodium Chloride 1,000 ml @ 1,000 mls/hr 1X ONCE IV Last administered on 10/10/18at 22:43; Start 10/10/18 at 22:00; Stop 10/10/18 at 22:59; Status DC Sodium Chloride 1,000 ml @ 1,000 mls/hr 1X ONCE IV Last administered on 10/10/18at 22:42; Start 10/10/18 at 22:00; Stop 10/10/18 at 22:59; Status DC Piperacillin Sod/ Tazobactam Sod (Zosyn Per Pharmacy) 1 each PRN DAILY PRN MC SEE COMMENTS; Start 10/10/18 at 22:00; Stop 10/10/18 at 22:33; Status DC Piperacillin Sod/ Tazobactam Sod 3.375 gm/Sodium Chloride 50 ml @ 100 mls/hr 1X ONCE IV Last administered on 10/10/18at 22:44; Start 10/10/18 at 22:15; Stop 10/10/18 at 22:44; Status DC Sodium Bicarbonate (Sodium Bicarb Adult 8.4% Syr) 50 meq 1X ONCE IV Last administered on 10/10/18at 22:43; Start 10/10/18 at 22:30; Stop 10/10/18 at 22:31; Status DC Calcium Gluconate (Calcium Gluconate) 1,000 mg 1X ONCE IVP Last administered on 10/10/18at 22:43; Start 10/10/18 at 22:30; Stop 10/10/18 at 22:31; Status DC Piperacillin Sod/ Tazobactam Sod (Zosyn Per Pharmacy) 1 each PRN DAILY PRN MC SEE COMMENTS; Start 10/10/18 at 22:45; Stop 10/14/18 at 08:32; Status DC Pantoprazole Sodium 80 mg/ Sodium Chloride 100 ml @ 10 mls/hr Q10H IV Last administered on 10/12/18at 08:31; Start 10/10/18 at 23:30; Stop 10/12/18 at 14:57; Status DC Phytonadione 10 mg/Dextrose 51 ml @ 102 mls/hr 1X ONCE IV Last administered on 10/10/18at 23:46; Start 10/10/18 at 23:30; Stop 10/10/18 at 23:59; Status DC Octreotide Acetate 500 mcg/ Sodium Chloride 101 ml @ 0 mls/hr CONT PRN IV SEE I/O RECORD Last administered on 10/12/18at 08:32; Start 10/10/18 at 23:45; Stop 10/12/18 at 14:57; Status DC Sodium Bicarbonate 50 meq/Dextrose 1,050 ml @ 125 mls/hr 1X ONCE IV Last administered on 10/11/18at 00:01; Start 10/10/18 at 23:55; Stop 10/11/18 at 08:18; Status DC Piperacillin Sod/ Tazobactam Sod 2.25 gm/Sodium Chloride 50 ml @ 100 mls/hr Q6HRS IV Last administered on 10/11/18at 05:30; Start 10/11/18 at 06:00; Stop 10/11/18 at 08:25; Status DC Meropenem 500 mg/ Sodium Chloride 50 ml @ 100 mls/hr Q8HRS IV ; Start 10/11/18 at 14:00; Stop 10/11/18 at 14:00; Status DC Ondansetron HCl (Zofran) 4 mg 1X ONCE IV Last administered on 10/11/18at 06:41; Start 10/11/18 at 06:45; Stop 10/11/18 at 06:46; Status DC Thiamine HCl 100 mg/Dextrose 51 ml @ 102 mls/hr 1X ONCE IV Last administered on 10/11/18at 07:40; Start 10/11/18 at 07:00; Stop 10/11/18 at 07:29; Status DC Folic Acid (Folic Acid) 1 mg DAILY PO ; Start 10/11/18 at 09:00; Stop 10/12/18 at 09:03; Status DC Levofloxacin/ Dextrose 50 ml @ 50 mls/hr 1X ONCE IV Last administered on 10/11/18at 07:42; Start 10/11/18 at 07:00; Stop 10/11/18 at 07:59; Status DC Albuterol Sulfate (Ventolin Neb Soln) 2.5 mg PRN Q4HRS PRN NEB SHORTNESS OF BREATH Last administered on 10/14/18at 03:05; Start 10/11/18 at 07:15 Lorazepam (Ativan) 1 mg 1X ONCE IV Last administered on 10/11/18at 07:37; Start 10/11/18 at 07:30; Stop 10/11/18 at 09:35; Status DC Lorazepam (Ativan) 1 mg PRN Q3HRS PRN IV ANXIETY / AGITATION; Start 10/11/18 at 08:00; Stop 10/11/18 at 09:35; Status DC Piperacillin Sod/ Tazobactam Sod 2.25 gm/Sodium Chloride 50 ml @ 100 mls/hr Q8HRS IV Last administered on 10/13/18at 05:34; Start 10/11/18 at 14:00; Stop 10/13/18 at 08:15; Status DC Ondansetron HCl (Zofran) 4 mg PRN Q6HRS PRN IV NAUSEA/VOMITING; Start 10/11/18 at 08:45 Lactulose (Lactulose) 30 gm TID PO ; Start 10/11/18 at 09:30; Stop 10/11/18 at 11:25; Status DC Sodium Bicarbonate 50 meq/Dextrose 1,050 ml @ 60 mls/hr [id number] IV Last administered on 10/12/18at 02:21; Start 10/11/18 at 10:00; Stop 10/12/18 at 10:58; Status DC Dexmedetomidine HCl 200 mcg/ Sodium Chloride 50 ml @ 0 mls/hr CONT PRN IV PER PROTOCOL Last administered on 10/13/18at 07:33; Start 10/11/18 at 09:45 Sodium Chloride 500 ml @ 500 mls/hr 1X PRN PRN IV SEE COMMENTS; Start 10/11/18 at 09:45 Atropine Sulfate (ATROPINE 0.5mg SYRINGE) 0.5 mg PRN Q5MIN PRN IV SEE COMMENTS; Start 10/11/18 at 09:45 Sodium Bicarbonate (Sodium Bicarb Adult 8.4% Syr) 50 meq STK-MED ONCE .ROUTE ; Start 10/11/18 at 09:42; Stop 10/11/18 at 09:43; Status DC Sodium Bicarbonate (Sodium Bicarb Adult 8.4% Syr) 100 meq 1X ONCE IV Last administered on 10/11/18at 10:00; Start 10/11/18 at 10:00; Stop 10/11/18 at 10:01; Status DC Lactulose (Lactulose) 30 gm TID CA ; Start 10/11/18 at 12:00; Stop 10/11/18 at 13:06; Status DC Lidocaine/Sodium Bicarbonate (Buffered Lidocaine 1%) 3 ml STK-MED ONCE .ROUTE ; Start 10/11/18 at 12:34; Stop 10/11/18 at 12:35; Status DC Heparin Sodium (Porcine) (Heparin Sodium) 10,000 unit STK-MED ONCE .ROUTE ; Start 10/11/18 at 12:34; Stop 10/11/18 at 12:35; Status DC Lactulose (Lactulose) 200 gm TID CA Last administered on 10/11/18at 20:55; Start 10/11/18 at 14:00; Stop 10/12/18 at 09:22; Status DC Sodium Chloride 1,000 ml @ 1,000 mls/hr Q1H PRN IV hypotension; Start 10/11/18 at 13:06; Stop 10/11/18 at 19:05; Status DC Albumin Human 200 ml @ 200 mls/hr 1X PRN PRN IV Hypotension; Start 10/11/18 at 13:15; Stop 10/11/18 at 19:14; Status DC Sodium Chloride (Normal Saline Flush) 10 ml 1X PRN PRN IV AP catheter pack; Start 10/11/18 at 13:15; Stop 10/12/18 at 13:14; Status DC Sodium Chloride (Normal Saline Flush) 10 ml 1X PRN PRN IV INOCULATOR catheter pack; Start 10/11/18 at 13:15; Stop 10/12/18 at 13:14; Status DC Sodium Chloride 1,000 ml @ 400 mls/hr Q2H30M PRN IV PATENCY; Start 10/11/18 at 13:06; Stop 10/12/18 at 01:05; Status DC Info (PHARMACY MONITORING -- do not chart) 1 each PRN DAILY PRN MC SEE COMMENTS; Start 10/11/18 at 13:15; Status UNV Info (PHARMACY MONITORING -- do not chart) 1 each PRN DAILY PRN MC SEE COMMENTS; Start 10/11/18 at 13:15; Stop 10/15/18 at 13:41; Status DC Lidocaine/Sodium Bicarbonate (Buffered Lidocaine 1%) 6 ml 1X ONCE INJ Last administered on 10/11/18at 13:42; Start 10/11/18 at 13:45; Stop 10/11/18 at 13:46; Status DC Potassium Chloride/Water 50 ml @ 50 mls/hr 1X ONCE IV Last administered on 10/12/18at 09:30; Start 10/12/18 at 09:00; Stop 10/12/18 at 09:59; Status DC Lactulose (Lactulose) 200 gm PRN TID PRN CA CONFUSION Last administered on 10/12/18at 11:37; Start 10/12/18 at 09:30 Amino Acids/ Glycerin/ Electrolytes 1,000 ml @ 60 mls/hr [id number] IV Last administered on 10/15/18at 08:19; Start 10/12/18 at 10:00 Amino Acids/ Glycerin/ Electrolytes 1,000 ml @ As Directed STK-MED ONCE IV ; Start 10/12/18 at 09:58; Stop 10/12/18 at 09:59; Status DC Pantoprazole Sodium (PROTONIX VIAL for IV PUSH) 40 mg BID IVP Last administered on 10/15/18at 08:20; Start 10/12/18 at 21:00 Albumin Human 50 ml @ 50 mls/hr 1X ONCE IV Last administered on 10/12/18at 18:04; Start 10/12/18 at 18:00; Stop 10/12/18 at 18:59; Status DC Potassium Chloride/Water 100 ml @ 100 mls/hr Q1H IV Last administered on 10/13/18at 11:33; Start 10/13/18 at 07:00; Stop 10/13/18 at 10:59; Status DC Piperacillin Sod/ Tazobactam Sod 2.25 gm/Sodium Chloride 50 ml @ 100 mls/hr Q6HRS IV Last administered on 10/14/18at 05:59; Start 10/13/18 at 12:00; Stop 10/14/18 at 08:32; Status DC Potassium Chloride/Water 50 ml @ 50 mls/hr PRN Q1HR PRN IV SEE ORDER COMMENTS; Start 10/13/18 at 10:45 Potassium Chloride/Water 50 ml @ 50 mls/hr PRN Q1HR PRN IV SEE ORDER COMMENTS; Start 10/13/18 at 10:45 Potassium Chloride/Water 50 ml @ 50 mls/hr PRN Q1HR PRN IV SEE ORDER COMMENTS; Start 10/13/18 at 11:00 Metoprolol Tartrate (Lopressor Vial) 2.5 mg Q6HRS IVP Last administered on 10/13/18at 16:51; Start 10/13/18 at 15:00; Stop 10/13/18 at 17:22; Status DC Metoprolol Tartrate (Lopressor Vial) 5 mg Q6HRS IVP Last administered on 10/14/18at 05:25; Start 10/13/18 at 18:00; Stop 10/14/18 at 08:54; Status DC Digoxin (Lanoxin) 500 mcg 1X ONCE IV Last administered on 10/13/18at 17:37; Start 10/13/18 at 17:30; Stop 10/13/18 at 17:31; Status DC Potassium Chloride/Water 50 ml @ 0 mls/hr Q1H IV Last administered on 10/14/18at 11:50; Start 10/14/18 at 09:00; Stop 10/14/18 at 12:01; Status DC Diltiazem HCl 125 mg/Dextrose 125 ml @ 5 mls/hr CONT PRN IV SEE I/O RECORD Last administered on 10/15/18at 11:13; Start 10/14/18 at 09:00 Diltiazem HCl (Cardizem Iv Push) 10 mg 1X ONCE IVP Last administered on 10/14/18 09:06; Start 10/14/18 at 09:00; Stop 10/14/18 at 09:01; Status DC Metoprolol Tartrate (Lopressor Vial) 5 mg PRN Q6HRS PRN IVP HYPERTENSION, SEE COMMENTS; Start 10/14/18 at 09:00 Potassium Phosphate 15 mmol/ Sodium Chloride 255 ml @ 127.5 mls/ hr 1X ONCE IV Last administered on 10/14/18at 11:17; Start 10/14/18 at 11:00; Stop 10/14/18 at 12:59; Status DC Fentanyl Citrate (Fentanyl 2ml Vial) 50 mcg PRN Q2HR PRN IV PAIN Last administered on 10/15/18 08:20; Start 10/14/18 at 13:00 Meropenem 500 mg/ Sodium Chloride 50 ml @ 100 mls/hr Q6HRS IV Last administered on 10/15/18 13:31; Start 10/15/18 at 08:00 Potassium Chloride/Water 50 ml @ 50 mls/hr Q1H IV Last administered on 10/15/18 11:01; Start 10/15/18 at 10:30; Stop 10/15/18 at 12:29; Status DC Magnesium Sulfate 50 ml @ 25 mls/hr 1X ONCE IV Last administered on 10/15/18 12:22; Start 10/15/18 at 10:30; Stop 10/15/18 at 12:29; Status DC Sodium Phosphate 20 mmol/Dextrose 256.6667 ml @ 64.167 m... 1X ONCE IV Last administered on 10/15/18 11:01; Start 10/15/18 at 10:30; Stop 10/15/18 at 14:29; Status DC Active Scripts Active Lactulose 20 Gm/30 Ml Solution 20 Gm PO PRN TID PRN 30 Days Klor-Con M20 (Potassium Chloride) 20 Meq Tab.er.prt 40 Meq PO DAILY 30 Days [Pantoprazole] 40 MG Tablet. 40 Mg PO DAILYAC 30 Days Hydroxyzine Pamoate 25 Mg Capsule 25 Mg PO PRN Q8HRS PRN 30 Days Aspirin Ec (Aspirin) 81 Mg Tablet.dr 81 Mg PO DAILYWBKFT 30 Days [Diltiazem Hcl] 240 MG Cap.er.24h 240 Mg PO DAILY 30 Days Metoprolol Tartrate 25 Mg Tablet 25 Mg PO BID 30 Days Vitamin B-1 (Thiamine Mononitrate) 100 Mg Tablet 100 Mg PO DAILY Hydrocodone-Apap 7.5-325 (Hydrocodone Bit/Acetaminophen) 1 Each Tablet 1 Tab PO PRN Q3HRS PRN Folic Acid 1 Mg Tablet 1 Mg PO DAILY Reported Tums (Calcium Carbonate) 300 Mg Tab.chew 300 Mg PO TIDAC PRN Cyclobenzaprine Hcl 10 Mg Tablet 1 Tab PO QHS Gabapentin (Gabapentin) 300 Mg Capsule 300 Mg PO TID Allergies Allergies: Coded Allergies: lisinopril (Verified Allergy, Severe, Swelling, 01/27/17) ANGIOEDEMA ROS General: YES: Fatigue Gastrointestinal: Yes Abdominal Pain Physical Exam General: Alert, Cooperative, No acute distress HEENT: Atraumatic Lungs: Normal air movement Abdomen: Soft, Other (TTP diffusely, but especially RLQ, no masses, or hernias) Extremities: No clubbing, No cyanosis Skin: No rashes, No breakdown Neuro: Normal speech, Sensation intact Psych/Mental Status: Mental status NL, Mood NL Vitals VITALS Vital Signs Date Time Temp Pulse Resp B/P (MAP) Pulse Ox O2 Delivery O2 Flow Rate FiO2 10/15/18 12:00 98.3 88 25 150/88 (108) 95 Room Air 98.3 Labs Labs Laboratory Tests Test 10/14/18 06:00 10/15/18 05:35 White Blood Count 15.8 x10^3/uL (4.0-11.0) Red Blood Count 4.32 x10^6/uL (4.30-5.70) Hemoglobin 8.8 g/dL (13.0-17.5) Hematocrit 28.8 % (39.0-53.0) Mean Corpuscular Volume 67 fL (79-100) Mean Corpuscular Hemoglobin 20 pg (25-35) Mean Corpuscular Hemoglobin Concent 30 g/dL (31-37) Red Cell Distribution Width 28.4 % (11.5-14.5) Platelet Count 83 x10^3/uL (140-400) Prothrombin Time 20.1 SEC (11.7-14.0) Prothromb Time International Ratio 1.7 (0.8-1.1) Sodium Level 134 mmol/L (136-145) 134 mmol/L (136-145) Potassium Level 3.0 mmol/L (3.5-5.1) 3.2 mmol/L (3.5-5.1) Chloride Level 99 mmol/L (98-107) 100 mmol/L (98-107) Carbon Dioxide Level 29 mmol/L (21-32) 24 mmol/L (21-32) Anion Gap 6 (6-14) 10 (6-14) Blood Urea Nitrogen 29 mg/dL (8-26) 21 mg/dL (8-26) Creatinine 1.2 mg/dL (0.7-1.3) 1.0 mg/dL (0.7-1.3) Estimated GFR (Cockcroft-Gault) 61.3 75.7 Glucose Level 97 mg/dL (70-99) 111 mg/dL (70-99) Calcium Level 8.1 mg/dL (8.5-10.1) 8.2 mg/dL (8.5-10.1) Phosphorus Level 2.2 mg/dL (2.6-4.7) 2.4 mg/dL (2.6-4.7) Magnesium Level 1.8 mg/dL (1.8-2.4) 1.7 mg/dL (1.8-2.4) Total Bilirubin 3.9 mg/dL (0.2-1.0) Direct Bilirubin 2.8 mg/dL (0.0-0.2) Aspartate Amino Transf (AST/SGOT) 448 U/L (15-37) Alanine Aminotransferase (ALT/SGPT) 908 U/L (16-63) Alkaline Phosphatase 101 U/L (46-116) Total Protein 5.1 g/dL (6.4-8.2) Albumin 2.3 g/dL (3.4-5.0) Laboratory Tests Test 10/15/18 05:35 Sodium Level 134 mmol/L (136-145) Potassium Level 3.2 mmol/L (3.5-5.1) Chloride Level 100 mmol/L (98-107) Carbon Dioxide Level 24 mmol/L (21-32) Anion Gap 10 (6-14) Blood Urea Nitrogen 21 mg/dL (8-26) Creatinine 1.0 mg/dL (0.7-1.3) Estimated GFR (Cockcroft-Gault) 75.7 Glucose Level 111 mg/dL (70-99) Calcium Level 8.2 mg/dL (8.5-10.1) Phosphorus Level 2.4 mg/dL (2.6-4.7) Magnesium Level 1.7 mg/dL (1.8-2.4) Images Images CT as above Assessment/Plan Assessment/Plan RLQ abd pain agree with GI evaluation that this may be a component of ischemia. Pt is poor surgical candidate given renal disease, but especially EtOHism and liver disease with significantly elevated INR on presentation, but now down to 1.7. Pt appears to have improved a great deal seen admission with current management. At this time, would continue current care, with close f/u. If pt develops signs of perforation, will need to proceed with emergent operation, despite significant risk. If pt's pain does not continue to improve, may also need to proceed with laparoscopic exploration, but even this remains high risk. Thanks for consult! MARJ GUTIERREZ MD October 15, 2018 15:02
--- NOTE | 2018-10-15 15:53 | NUR ---
Pt arrived to unit via transportation in stable condition. Cardizem and PPN infusing. Pt transferred to bed and monitoring and evaluation advisor placed. Pt complaining that they left his teeth in a blue clear container downstairs. ICU contacted and stated they had never seen any teeth and that the room had been cleaned. Pt very upset and continues to state that he cannot afford another set of teeth and that we better find them. Pt brought up from ICU with one bag. Staff looked in bag and no teeth were found.
[2018-10-16 03:00] VITALS: BP 146/87
--- NOTE | 2018-10-16 03:10 | NUR ---
Change of care note: Pt awake watching television assessment completed vs obtained pt without c/o pain agree with previous assessment will resume care and continue to monitor pt. Call light in reach ,
[2018-10-16] MEDS: MEROPENEM 500 MG in IV NORMAL SALINE 50ML 50 ML IV SCH ×4 (06:13→23:23)
[2018-10-16 06:44] LABS: CREATININE 0.9 mg/dL (0.7-1.3); GFR 85.5; PHOSPHORUS 2.7 mg/dL (2.6-4.7); POTASSIUM 3.7 mmol/L (3.5-5.1)
[2018-10-16 07:00] VITALS: BP 159/85
--- NOTE | 2018-10-16 07:37 | PDOC ---
Infectious Disease Note Subjective: Subjective pt tx out of icu says feels a little better abdo pain is improving no nausea/f/c no diarrhea d/w rn ROS: ROS Negative except for above. Vital Signs: Vital Signs Vital Signs Date Time Temp Pulse Resp B/P (MAP) Pulse Ox O2 Delivery O2 Flow Rate FiO2 10/16/18 03:00 98.3 93 18 146/87 (106) 95 Room Air 98.3 Physical Exam: PHYSICAL EXAM GENERAL: alert awake HENT: PERRL. Oral cavity dry LUNGS: Clear CV: S1 S2 irregular ABD: Soft, tenderness in RLQ improving, no rebound or guarding : Rodriguez out EXT: No gross edema or cyanosis SKIN: No generalized rash DRAFTER REFRIGERATION:awake , alert ,nonfocal Nontunneled RIJ/HDC (10/11) clean Medications: Inpatient Meds: Current Medications Medications (Trade) Dose Ordered Sig/Debbie Start Time Stop Time Status Last Admin Dose Admin Albumin Human 50 ml @ 50 mls/hr 1X ONCE 10/12/18 18:00 10/12/18 18:59 DC 10/12/18 18:04 50 MLS/HR Albuterol Sulfate (Ventolin Neb Soln) 2.5 mg PRN Q4HRS PRN 10/11/18 07:15 10/14/18 03:05 2.5 MG Amino Acids/ Glycerin/ Electrolytes 1,000 ml @ As Directed STK-MED ONCE 10/12/18 09:58 10/12/18 09:59 DC Atropine Sulfate (ATROPINE 0.5mg SYRINGE) 0.5 mg PRN Q5MIN PRN 10/11/18 09:45 Calcium Gluconate (Calcium Gluconate) 1,000 mg 1X ONCE 10/10/18 22:30 10/10/18 22:31 DC 10/10/18 22:43 1,000 MG Dexmedetomidine HCl 200 mcg/ Sodium Chloride 50 ml @ 0 mls/hr CONT PRN 10/11/18 09:45 10/13/18 07:33 13.3 MLS/HR Digoxin (Lanoxin) 500 mcg 1X ONCE 10/13/18 17:30 10/13/18 17:31 DC 10/13/18 17:37 500 MCG Diltiazem HCl (Cardizem Iv Push) 10 mg 1X ONCE 10/14/18 09:00 10/14/18 09:01 DC 10/14/18 09:06 10 MG Diltiazem HCl 125 mg/Dextrose 125 ml @ 5 mls/hr CONT PRN 10/14/18 09:00 10/15/18 18:33 15 MLS/HR Fentanyl Citrate (Fentanyl 2ml Vial) 50 mcg PRN Q2HR PRN 10/14/18 13:00 10/15/18 08:20 50 MCG Folic Acid (Folic Acid) 1 mg DAILY 10/11/18 09:00 10/12/18 09:03 DC Heparin Sodium (Porcine) (Heparin Sodium) 10,000 unit STK-MED ONCE 10/11/18 12:34 10/11/18 12:35 DC Info (PHARMACY MONITORING -- do not chart) 1 each PRN DAILY PRN 10/11/18 13:15 10/15/18 13:41 DC Lactulose (Lactulose) 200 gm PRN TID PRN 10/12/18 09:30 10/12/18 11:37 200 GM Levofloxacin/ Dextrose 50 ml @ 50 mls/hr 1X ONCE 10/11/18 07:00 10/11/18 07:59 DC 10/11/18 07:42 50 MLS/HR Lidocaine/Sodium Bicarbonate (Buffered Lidocaine 1%) 6 ml 1X ONCE 10/11/18 13:45 10/11/18 13:46 DC 10/11/18 13:42 4 ML Lorazepam (Ativan) 1 mg PRN Q3HRS PRN 10/11/18 08:00 10/11/18 09:35 DC Magnesium Sulfate 50 ml @ 25 mls/hr 1X ONCE 10/15/18 10:30 10/15/18 12:29 DC 10/15/18 12:22 25 MLS/HR Meropenem 500 mg/ Sodium Chloride 50 ml @ 100 mls/hr Q6HRS 10/15/18 08:00 10/16/18 06:13 100 MLS/HR Metoprolol Tartrate (Lopressor Vial) 5 mg PRN Q6HRS PRN 10/14/18 09:00 Octreotide Acetate 500 mcg/ Sodium Chloride 101 ml @ 0 mls/hr CONT PRN 10/10/18 23:45 10/12/18 14:57 DC 10/12/18 08:32 5 MLS/HR Ondansetron HCl (Zofran) 4 mg PRN Q6HRS PRN 10/11/18 08:45 Pantoprazole Sodium (PROTONIX VIAL for IV PUSH) 40 mg BID 10/12/18 21:00 10/15/18 21:00 40 MG Pantoprazole Sodium 80 mg/ Sodium Chloride 100 ml @ 10 mls/hr Q10H 10/10/18 23:30 10/12/18 14:57 DC 10/12/18 08:31 10 MLS/HR Phytonadione 10 mg/Dextrose 51 ml @ 102 mls/hr 1X ONCE 10/10/18 23:30 10/10/18 23:59 DC 10/10/18 23:46 102 MLS/HR Piperacillin Sod/ Tazobactam Sod (Zosyn Per Pharmacy) 1 each PRN DAILY PRN 10/10/18 22:45 10/14/18 08:32 DC Piperacillin Sod/ Tazobactam Sod 2.25 gm/Sodium Chloride 50 ml @ 100 mls/hr Q6HRS 10/13/18 12:00 10/14/18 08:32 DC 10/14/18 05:59 100 MLS/HR Piperacillin Sod/ Tazobactam Sod 3.375 gm/Sodium Chloride 50 ml @ 100 mls/hr 1X ONCE 10/10/18 22:15 10/10/18 22:44 DC 10/10/18 22:44 100 MLS/HR Potassium Chloride/Water 50 ml @ 50 mls/hr Q1H 10/15/18 10:30 10/15/18 12:29 DC 10/15/18 11:01 50 MLS/HR Potassium Phosphate 15 mmol/ Sodium Chloride 255 ml @ 127.5 mls/ hr 1X ONCE 10/14/18 11:00 10/14/18 12:59 DC 10/14/18 11:17 127.5 MLS/HR Sodium Bicarbonate 50 meq/Dextrose 1,050 ml @ 60 mls/hr [id number] 10/11/18 10:00 10/12/18 10:58 DC 10/12/18 02:21 125 MLS/HR Sodium Bicarbonate (Sodium Bicarb Adult 8.4% Syr) 100 meq 1X ONCE 10/11/18 10:00 10/11/18 10:01 DC 10/11/18 10:00 100 MEQ Sodium Chloride 1,000 ml @ 400 mls/hr Q2H30M PRN 10/11/18 13:06 10/12/18 01:05 DC Sodium Chloride (Normal Saline Flush) 10 ml 1X PRN PRN 10/11/18 13:15 10/12/18 13:14 DC Sodium Phosphate 20 mmol/Dextrose 256.6667 ml @ 64.167 m... 1X ONCE 10/15/18 10:30 10/15/18 14:29 DC 10/15/18 11:01 64.167 MLS/HR Thiamine HCl 100 mg/Dextrose 51 ml @ 102 mls/hr 1X ONCE 10/11/18 07:00 10/11/18 07:29 DC 10/11/18 07:40 102 MLS/HR Labs: Lab Laboratory Tests Test 10/16/18 06:20 Sodium Level 136 mmol/L (136-145) Potassium Level 3.7 mmol/L (3.5-5.1) Chloride Level 104 mmol/L (98-107) Carbon Dioxide Level 22 mmol/L (21-32) Anion Gap 10 (6-14) Blood Urea Nitrogen 17 mg/dL (8-26) Creatinine 0.9 mg/dL (0.7-1.3) Estimated GFR (Cockcroft-Gault) 85.5 Glucose Level 112 mg/dL (70-99) Calcium Level 8.0 mg/dL (8.5-10.1) Phosphorus Level 2.7 mg/dL (2.6-4.7) Magnesium Level 2.0 mg/dL (1.8-2.4) Micro CT A/P IMPRESSION: 1. Persistent mural thickening involving the cecum raising the possibility of neoplasm versus nonspecific colitis. 2. A small amount of free fluid has developed in the abdomen and pelvis. 3. Mild generalized mesenteric edema. 4. Increasing small right pleural effusion and new small left pleural effusion with mild bibasilar atelectasis. 5. Cholelithiasis. Objective: Assessment: Sepsis with lactic acidosis source GI Hypothermia, now improved and off Jo-Ann hugger Leukocytosis trending upwards Acute encephalopathy likely metabolic with hepatic failure,improved NATHANIEL on CKD Acute liver failure ,ammonia wnl Respiratory insufficiency, O2 5L Abdo pain CT showsing Persistent mural thickening involving the cecum raising the possibility of neoplasm versus nonspecific colitis. Mild generalized mesenteric edema. Cholelithiasis A- fib Hep C, VL 24,700 Anemia s/p fall Recent hospitalization Myoclonic movements bue, from hepatic failure improved pleural effusion with mild bibasilar atelectasis. Plan: Plan of Care oscar, was on Zosyn,DC due to thrombocytopenia One time dose Levaquin, 5/4 f/u cultures Monitor labs DNR will tranition to po soon for dc D/W FIDELIA HERNANDEZ MD October 16, 2018 07:36
[2018-10-16 08:20] LABS: BASO % 0 % (0-3); EOS # 0.1 x10^3/uL (0.0-0.7); EOS % 1 % (0-3); HEMATOCRIT 27.7 % (39.0-53.0); HEMOGLOBIN 8.5 g/dL (13.0-17.5); LYMPH # 1.3 x10^3/uL (1.0-4.8); LYMPH % 11 % (24-48); MEAN CORPUSCULAR HEMOGLOBIN 21 pg (25-35); MEAN CORPUSCULAR HGB CONC 31 g/dL (31-37); MEAN CORPUSCULAR VOLUME 67 fL (79-100); MONO # 2.1 x10^3/uL (0.0-1.1); MONO % 19 % (0-9); NEUT # 7.7 x10^3uL (1.8-7.7); NEUT % 68 % (31-73); PLATELET COUNT 84 x10^3/uL (140-400); RED BLOOD COUNT 4.14 x10^6/uL (4.30-5.70); RED CELL DISTRIBUTION WIDTH 28.9 % (11.5-14.5); WHITE BLOOD COUNT 11.3 x10^3/uL (4.0-11.0)
--- NOTE | 2018-10-16 08:54 | PDOC ---
PULMONARY PROGRESS NOTES Subjective PT FEELS BETTER LESS SOA Vitals Vital Signs Date Time Temp Pulse Resp B/P (MAP) Pulse Ox O2 Delivery O2 Flow Rate FiO2 10/16/18 07:00 98.8 83 18 159/85 (109) 95 Room Air 98.8 ROS: No Nausea, No Chest Pain, No Abdominal Pain, No Increase Cough General: Alert Lungs: Clear, Other (decrease bs) Cardiovascular: S1 Abdomen: Soft Neuro Exam: Alert Extremities: No Edema Skin: Warm Labs Laboratory Tests Test 10/15/18 05:35 10/16/18 06:20 Sodium Level 134 mmol/L (136-145) 136 mmol/L (136-145) Potassium Level 3.2 mmol/L (3.5-5.1) 3.7 mmol/L (3.5-5.1) Chloride Level 100 mmol/L (98-107) 104 mmol/L (98-107) Carbon Dioxide Level 24 mmol/L (21-32) 22 mmol/L (21-32) Anion Gap 10 (6-14) 10 (6-14) Blood Urea Nitrogen 21 mg/dL (8-26) 17 mg/dL (8-26) Creatinine 1.0 mg/dL (0.7-1.3) 0.9 mg/dL (0.7-1.3) Estimated GFR (Cockcroft-Gault) 75.7 85.5 Glucose Level 111 mg/dL (70-99) 112 mg/dL (70-99) Calcium Level 8.2 mg/dL (8.5-10.1) 8.0 mg/dL (8.5-10.1) Phosphorus Level 2.4 mg/dL (2.6-4.7) 2.7 mg/dL (2.6-4.7) Magnesium Level 1.7 mg/dL (1.8-2.4) 2.0 mg/dL (1.8-2.4) White Blood Count 11.3 x10^3/uL (4.0-11.0) Red Blood Count 4.14 x10^6/uL (4.30-5.70) Hemoglobin 8.5 g/dL (13.0-17.5) Hematocrit 27.7 % (39.0-53.0) Mean Corpuscular Volume 67 fL (79-100) Mean Corpuscular Hemoglobin 21 pg (25-35) Mean Corpuscular Hemoglobin Concent 31 g/dL (31-37) Red Cell Distribution Width 28.9 % (11.5-14.5) Platelet Count 84 x10^3/uL (140-400) Neutrophils (%) (Auto) 68 % (31-73) Lymphocytes (%) (Auto) 11 % (24-48) Monocytes (%) (Auto) 19 % (0-9) Eosinophils (%) (Auto) 1 % (0-3) Basophils (%) (Auto) 0 % (0-3) Neutrophils # (Auto) 7.7 x10^3uL (1.8-7.7) Lymphocytes # (Auto) 1.3 x10^3/uL (1.0-4.8) Monocytes # (Auto) 2.1 x10^3/uL (0.0-1.1) Eosinophils # (Auto) 0.1 x10^3/uL (0.0-0.7) Basophils # (Auto) 0.0 x10^3/uL (0.0-0.2) Laboratory Tests Test 10/16/18 06:20 White Blood Count 11.3 x10^3/uL (4.0-11.0) Red Blood Count 4.14 x10^6/uL (4.30-5.70) Hemoglobin 8.5 g/dL (13.0-17.5) Hematocrit 27.7 % (39.0-53.0) Mean Corpuscular Volume 67 fL (79-100) Mean Corpuscular Hemoglobin 21 pg (25-35) Mean Corpuscular Hemoglobin Concent 31 g/dL (31-37) Red Cell Distribution Width 28.9 % (11.5-14.5) Platelet Count 84 x10^3/uL (140-400) Neutrophils (%) (Auto) 68 % (31-73) Lymphocytes (%) (Auto) 11 % (24-48) Monocytes (%) (Auto) 19 % (0-9) Eosinophils (%) (Auto) 1 % (0-3) Basophils (%) (Auto) 0 % (0-3) Neutrophils # (Auto) 7.7 x10^3uL (1.8-7.7) Lymphocytes # (Auto) 1.3 x10^3/uL (1.0-4.8) Monocytes # (Auto) 2.1 x10^3/uL (0.0-1.1) Eosinophils # (Auto) 0.1 x10^3/uL (0.0-0.7) Basophils # (Auto) 0.0 x10^3/uL (0.0-0.2) Sodium Level 136 mmol/L (136-145) Potassium Level 3.7 mmol/L (3.5-5.1) Chloride Level 104 mmol/L (98-107) Carbon Dioxide Level 22 mmol/L (21-32) Anion Gap 10 (6-14) Blood Urea Nitrogen 17 mg/dL (8-26) Creatinine 0.9 mg/dL (0.7-1.3) Estimated GFR (Cockcroft-Gault) 85.5 Glucose Level 112 mg/dL (70-99) Calcium Level 8.0 mg/dL (8.5-10.1) Phosphorus Level 2.7 mg/dL (2.6-4.7) Magnesium Level 2.0 mg/dL (1.8-2.4) Medications Active Scripts Medications Dose Route/Sig Max Daily Dose Days Date Category Lactulose 20 Gm/30 Ml Solution 20 Gm PO PRN TID PRN 30 10/07/18 Rx Tums (Calcium Carbonate) 300 Mg Tab.chew 300 Mg PO TIDAC PRN 10/06/18 Reported Cyclobenzaprine Hcl 10 Mg Tablet 1 Tab PO QHS 10/06/18 Reported Gabapentin (Gabapentin) 300 Mg Capsule 300 Mg PO TID 10/06/18 Reported Klor-Con M20 (Potassium Chloride) 20 Meq Tab.er.prt 40 Meq PO DAILY 09/13/18 Rx [Pantoprazole] 40 MG Tablet.dr 40 Mg PO DAILYAC 09/13/18 Rx Hydroxyzine Pamoate 25 Mg Capsule 25 Mg PO PRN Q8HRS PRN 09/13/18 Rx Aspirin Ec (Aspirin) 81 Mg Tablet.dr 81 Mg PO DAILYWBKFT 09/13/18 Rx [Diltiazem Hcl] 240 MG Cap.er.24h 240 Mg PO DAILY 09/13/18 Rx Metoprolol Tartrate 25 Mg Tablet 25 Mg PO BID 09/13/18 Rx Vitamin B-1 (Thiamine Mononitrate) 100 Mg Tablet 100 Mg PO DAILY 02/07/17 Rx Hydrocodone-Apap 7.5-325 (Hydrocodone Bit/Acetaminophen) 1 Each Tablet 1 Tab PO PRN Q3HRS PRN 02/07/17 Rx Folic Acid 1 Mg Tablet 1 Mg PO DAILY 02/07/17 Rx Impression . 1. Acute hypoxic respiratory failure with multisystem organ involvement. The etiology of respiratory failure secondary to sepsis and acute liver failure. 2. Significantly abnormal liver function tests related to acute hepatic failure in a patient who has hepatitis C. 3. Acute blood loss anemia secondary to gastrointestinal bleed. 4. Coagulopathy with high INR of 5.2 related to liver disease and sepsis. 5. Thrombocytopenia. 6. Abnormal chest x-ray consistent with pneumonia. 7. Recently abnormal echo with [id number] mitral regurgitation and ejection fraction of 50%. 8. Severe metabolic acidosis secondary to lactic acidosis resulting from sepsis along with underlying liver failure. 9. Possible underlying COPD/tobaccoism. 10. Hyperkalemia. 11. NATHANIEL 12. ABDOMINAL PAIN CT 10/14 IMPRESSION: 1. Persistent mural thickening involving the cecum raising the possibility of neoplasm versus nonspecific colitis. 2. A small amount of free fluid has developed in the abdomen and pelvis. 3. Mild generalized mesenteric edema. 4. Increasing small right pleural effusion and new small left pleural effusion with mild bibasilar atelectasis. 5. Cholelithiasis. Plan . IS D/W RN NEEDS UP TO CHAIR PT OT IMPROVING OFF 02 IS ANTIBX PER ID FOLLOW GI RECOMMENDATION 02 NEEDED PARESH FONSECA MD October 16, 2018 08:54
[2018-10-16] MEDS: PANTOPRAZOLE IV PUSH 40 MG VIAL. IVP SCH ×2 (08:55→20:46)
--- NOTE | 2018-10-16 09:01 | PDOC ---
Renal-Progress Notes Subjective Notes Notes NOTHING NEW REPORTED EXCEPT SOME ABD PAIN History of Present Illness Hx of present illness BETTER Vitals Vitals Vital Signs Date Time Temp Pulse Resp B/P (MAP) Pulse Ox O2 Delivery O2 Flow Rate FiO2 10/16/18 07:00 98.8 83 18 159/85 (109) 95 Room Air 98.8 Weight Weight [ ] I.O. Intake and Output Intake and Output 10/16/18 07:00 Intake Total 399 ml Output Total 1300 ml Balance -901 ml Intake Oral 0 ml IV Total 399 ml Output Urine Total 1300 ml Labs Labs Laboratory Tests Test 10/16/18 06:20 White Blood Count 11.3 x10^3/uL (4.0-11.0) Red Blood Count 4.14 x10^6/uL (4.30-5.70) Hemoglobin 8.5 g/dL (13.0-17.5) Hematocrit 27.7 % (39.0-53.0) Mean Corpuscular Volume 67 fL (79-100) Mean Corpuscular Hemoglobin 21 pg (25-35) Mean Corpuscular Hemoglobin Concent 31 g/dL (31-37) Red Cell Distribution Width 28.9 % (11.5-14.5) Platelet Count 84 x10^3/uL (140-400) Neutrophils (%) (Auto) 68 % (31-73) Lymphocytes (%) (Auto) 11 % (24-48) Monocytes (%) (Auto) 19 % (0-9) Eosinophils (%) (Auto) 1 % (0-3) Basophils (%) (Auto) 0 % (0-3) Neutrophils # (Auto) 7.7 x10^3uL (1.8-7.7) Lymphocytes # (Auto) 1.3 x10^3/uL (1.0-4.8) Monocytes # (Auto) 2.1 x10^3/uL (0.0-1.1) Eosinophils # (Auto) 0.1 x10^3/uL (0.0-0.7) Basophils # (Auto) 0.0 x10^3/uL (0.0-0.2) Sodium Level 136 mmol/L (136-145) Potassium Level 3.7 mmol/L (3.5-5.1) Chloride Level 104 mmol/L (98-107) Carbon Dioxide Level 22 mmol/L (21-32) Anion Gap 10 (6-14) Blood Urea Nitrogen 17 mg/dL (8-26) Creatinine 0.9 mg/dL (0.7-1.3) Estimated GFR (Cockcroft-Gault) 85.5 Glucose Level 112 mg/dL (70-99) Calcium Level 8.0 mg/dL (8.5-10.1) Phosphorus Level 2.7 mg/dL (2.6-4.7) Magnesium Level 2.0 mg/dL (1.8-2.4) Micro Micro Microbiology 10/10/18 Blood Culture - Final, Complete NO GROWTH AFTER 5 DAYS 10/12/18 Stool Culture - Final, Complete 10/12/18 Stool Culture Result 1 (JABIER) - Final, Complete 10/12/18 Campylobacter Antigen Assay - Final, Complete 10/12/18 Campylobactor Result 1 - Final, Complete 10/12/18 Shiga Toxin Test - Final, Complete Review of Systems Constitutional: yes: other (CONFUSED) Physical Exam General Appearance: no apparent distress Skin: warm Respiratory: decreased breath sounds Heart: S1S2 Abdomen: soft, bowel sounds present Genitourinary: bladder flat Extremities: pulses present Neurology: alert, oriented, follow commands, confused Assessment Assessment IMP NATHANIEL-RESOLVED MET ACIDOSIS-RESOLVED MET ENCEPHALOPATHY-IMPROVED SEPSIS ANEMIA AFIB RVR LIVER FAILURE WITH HEP C-IMPROVING LFT'S COAGULOPATHY HYPOKALEMIA-CORRECTED LOW PO4, LOW MAG-CORRECTED LEUCOCYTOSIS PLAN WILL SIGN OFF PLEASE CALL IF NEEDED SUJATHA VOSS MD October 16, 2018 09:00
--- NOTE | 2018-10-16 10:09 | PDOC ---
COLEMAN MARQUEZ [employer] 10/16/18 1009: SURGICAL PROGRESS NOTE Subjective says his pain has been much less than in a while no nausea hungry Vital Signs Vital Signs Date Time Temp Pulse Resp B/P (MAP) Pulse Ox O2 Delivery O2 Flow Rate FiO2 10/16/18 08:00 Room Air 10/16/18 07:00 98.8 83 18 159/85 (109) 95 98.8 I&O Intake and Output 10/16/18 07:00 Intake Total 399 ml Output Total 1300 ml Balance -901 ml Intake Oral 0 ml IV Total 399 ml Output Urine Total 1300 ml General: Alert, Oriented X3, Cooperative, No acute distress Abdomen: Soft, No tenderness Labs Laboratory Tests Test 10/15/18 05:35 10/16/18 06:20 Sodium Level 134 mmol/L (136-145) 136 mmol/L (136-145) Potassium Level 3.2 mmol/L (3.5-5.1) 3.7 mmol/L (3.5-5.1) Chloride Level 100 mmol/L (98-107) 104 mmol/L (98-107) Carbon Dioxide Level 24 mmol/L (21-32) 22 mmol/L (21-32) Anion Gap 10 (6-14) 10 (6-14) Blood Urea Nitrogen 21 mg/dL (8-26) 17 mg/dL (8-26) Creatinine 1.0 mg/dL (0.7-1.3) 0.9 mg/dL (0.7-1.3) Estimated GFR (Cockcroft-Gault) 75.7 85.5 Glucose Level 111 mg/dL (70-99) 112 mg/dL (70-99) Calcium Level 8.2 mg/dL (8.5-10.1) 8.0 mg/dL (8.5-10.1) Phosphorus Level 2.4 mg/dL (2.6-4.7) 2.7 mg/dL (2.6-4.7) Magnesium Level 1.7 mg/dL (1.8-2.4) 2.0 mg/dL (1.8-2.4) White Blood Count 11.3 x10^3/uL (4.0-11.0) Red Blood Count 4.14 x10^6/uL (4.30-5.70) Hemoglobin 8.5 g/dL (13.0-17.5) Hematocrit 27.7 % (39.0-53.0) Mean Corpuscular Volume 67 fL (79-100) Mean Corpuscular Hemoglobin 21 pg (25-35) Mean Corpuscular Hemoglobin Concent 31 g/dL (31-37) Red Cell Distribution Width 28.9 % (11.5-14.5) Platelet Count 84 x10^3/uL (140-400) Neutrophils (%) (Auto) 68 % (31-73) Lymphocytes (%) (Auto) 11 % (24-48) Monocytes (%) (Auto) 19 % (0-9) Eosinophils (%) (Auto) 1 % (0-3) Basophils (%) (Auto) 0 % (0-3) Neutrophils # (Auto) 7.7 x10^3uL (1.8-7.7) Lymphocytes # (Auto) 1.3 x10^3/uL (1.0-4.8) Monocytes # (Auto) 2.1 x10^3/uL (0.0-1.1) Eosinophils # (Auto) 0.1 x10^3/uL (0.0-0.7) Basophils # (Auto) 0.0 x10^3/uL (0.0-0.2) Laboratory Tests Test 10/16/18 06:20 White Blood Count 11.3 x10^3/uL (4.0-11.0) Red Blood Count 4.14 x10^6/uL (4.30-5.70) Hemoglobin 8.5 g/dL (13.0-17.5) Hematocrit 27.7 % (39.0-53.0) Mean Corpuscular Volume 67 fL (79-100) Mean Corpuscular Hemoglobin 21 pg (25-35) Mean Corpuscular Hemoglobin Concent 31 g/dL (31-37) Red Cell Distribution Width 28.9 % (11.5-14.5) Platelet Count 84 x10^3/uL (140-400) Neutrophils (%) (Auto) 68 % (31-73) Lymphocytes (%) (Auto) 11 % (24-48) Monocytes (%) (Auto) 19 % (0-9) Eosinophils (%) (Auto) 1 % (0-3) Basophils (%) (Auto) 0 % (0-3) Neutrophils # (Auto) 7.7 x10^3uL (1.8-7.7) Lymphocytes # (Auto) 1.3 x10^3/uL (1.0-4.8) Monocytes # (Auto) 2.1 x10^3/uL (0.0-1.1) Eosinophils # (Auto) 0.1 x10^3/uL (0.0-0.7) Basophils # (Auto) 0.0 x10^3/uL (0.0-0.2) Sodium Level 136 mmol/L (136-145) Potassium Level 3.7 mmol/L (3.5-5.1) Chloride Level 104 mmol/L (98-107) Carbon Dioxide Level 22 mmol/L (21-32) Anion Gap 10 (6-14) Blood Urea Nitrogen 17 mg/dL (8-26) Creatinine 0.9 mg/dL (0.7-1.3) Estimated GFR (Cockcroft-Gault) 85.5 Glucose Level 112 mg/dL (70-99) Calcium Level 8.0 mg/dL (8.5-10.1) Phosphorus Level 2.7 mg/dL (2.6-4.7) Magnesium Level 2.0 mg/dL (1.8-2.4) Problem List Problems Medical Problems: (1) Lactic acidosis Status: Acute (2) Liver failure Status: Acute (3) Pneumonia Status: Acute (4) Renal failure Status: Acute Assessment/Plan appears improved will review with MARJ Godoy MD 10/16/18 1521: SURGICAL PROGRESS NOTE Assessment/Plan Pt seen and examined. Agree with Ms. Marquez's note Pt feels much better, passing flatus, no N/V abd soft, min TTP cont supportive care, no surgical plans. COLEMAN MARQUEZ [employer] October 16, 2018 10:09 MARJ GUTIERREZ MD October 16, 2018 15:21
--- NOTE | 2018-10-16 10:45 | PDOC ---
CARDIO Progress Notes Date and Time Date of Service 10/16/18 Time of Evaluation 1030 Subjective Subjective: No Chest Pain, No shortness of breath, No Palpitations, Other (abdominal pain better) Vitals Vitals Vital Signs Date Time Temp Pulse Resp B/P (MAP) Pulse Ox O2 Delivery O2 Flow Rate FiO2 10/16/18 08:00 Room Air 10/16/18 07:00 98.8 83 18 159/85 (109) 95 98.8 Weight Weight [ ] Input and Output Intake and Output Intake and Output 10/16/18 07:00 Intake Total 399 ml Output Total 1300 ml Balance -901 ml Intake Oral 0 ml IV Total 399 ml Output Urine Total 1300 ml Laboratory Labs Laboratory Tests Test 10/16/18 06:20 White Blood Count 11.3 x10^3/uL (4.0-11.0) Red Blood Count 4.14 x10^6/uL (4.30-5.70) Hemoglobin 8.5 g/dL (13.0-17.5) Hematocrit 27.7 % (39.0-53.0) Mean Corpuscular Volume 67 fL (79-100) Mean Corpuscular Hemoglobin 21 pg (25-35) Mean Corpuscular Hemoglobin Concent 31 g/dL (31-37) Red Cell Distribution Width 28.9 % (11.5-14.5) Platelet Count 84 x10^3/uL (140-400) Neutrophils (%) (Auto) 68 % (31-73) Lymphocytes (%) (Auto) 11 % (24-48) Monocytes (%) (Auto) 19 % (0-9) Eosinophils (%) (Auto) 1 % (0-3) Basophils (%) (Auto) 0 % (0-3) Neutrophils # (Auto) 7.7 x10^3uL (1.8-7.7) Lymphocytes # (Auto) 1.3 x10^3/uL (1.0-4.8) Monocytes # (Auto) 2.1 x10^3/uL (0.0-1.1) Eosinophils # (Auto) 0.1 x10^3/uL (0.0-0.7) Basophils # (Auto) 0.0 x10^3/uL (0.0-0.2) Sodium Level 136 mmol/L (136-145) Potassium Level 3.7 mmol/L (3.5-5.1) Chloride Level 104 mmol/L (98-107) Carbon Dioxide Level 22 mmol/L (21-32) Anion Gap 10 (6-14) Blood Urea Nitrogen 17 mg/dL (8-26) Creatinine 0.9 mg/dL (0.7-1.3) Estimated GFR (Cockcroft-Gault) 85.5 Glucose Level 112 mg/dL (70-99) Calcium Level 8.0 mg/dL (8.5-10.1) Phosphorus Level 2.7 mg/dL (2.6-4.7) Magnesium Level 2.0 mg/dL (1.8-2.4) Microbiology Micro Microbiology 10/10/18 Blood Culture - Final, Complete NO GROWTH AFTER 5 DAYS 10/12/18 Stool Culture - Final, Complete 10/12/18 Stool Culture Result 1 (JABIER) - Final, Complete 10/12/18 Campylobacter Antigen Assay - Final, Complete 10/12/18 Campylobactor Result 1 - Final, Complete 10/12/18 Shiga Toxin Test - Final, Complete Review of Systems Constitutional: yes: other (CONFUSED) Physical Exam HEENT: Neck Supple W Full Motion Chest: Symmetric LUNGS: Other (diminished bases) Heart: irregularly irregular (AFIB ) Abdomen: Soft N/T Extremities: No Edema, Other (trace bilateral LE pitting edema) Neurology: alert, follow commands Assessment Assessment 1. Acute respiratory failure; improved 2. Persistent AFIB: rate mostly controlled 3. Sepsis: ID following 4. GI bleed; s/p 1 unit PRBCs. Hgb 8.5 5. Coagulopathy with past ETOH use and Hep C, cirrhosis. s/p FFP. INR 1.7 GI following 6. Shock liver/Cirrhosis/cholelithiasis with possible colitis: General surgery following. NPO 7. Hypertension; adequate 8. Suspect COPD with continued tobaccoism: moderate pulmonary hypertension 9. NATHANIEL on CKD: improved 10. Metabolic encephalopathy; better 12. Hypokalemia; resolved Recommendations Remains NPO; continue Cardizem drip and metoprolol IV while NPO. Covert to PO when able to take oral Supportive care MAYO BUSTOS APRN October 16, 2018 10:45
--- NOTE | 2018-10-16 10:52 | PDOC ---
[employer] PROGRESS NOTE Chief Complaint Chief Complaint Found down by a neighbor with Transaminaseitis and mental status change (AST 4514, ALT 1550, Lactate 14.9. WBC 14.7, Hb 6.5 with bright red blood per rectum ) Abd pain, abnormal cecum on CT Hep C, shock liver ALLI A Fib Severe metabolic encephalopathy History of Present Illness History of Present Illness Patient seen and examined No longer in ICU Reports abdominal pain has been improving He states he does have small bowl movements Patient is much more alert and talkative Discussed with nurse Vitals Vitals Vital Signs Date Time Temp Pulse Resp B/P (MAP) Pulse Ox O2 Delivery O2 Flow Rate FiO2 10/16/18 08:00 Room Air 10/16/18 07:00 98.8 83 18 159/85 (109) 95 98.8 Physical Exam Physical Exam GENERAL: alert awake HENT: PERRL. Oral cavity dry LUNGS: Clear CV: S1 S2 irregular ABD: Soft, tenderness in RLQ improving, no rebound or guarding : Rodriguez out EXT: No gross edema or cyanosis SKIN: No generalized rash ROUTER TENDER:awake , alert ,nonfocal Nontunneled RIJ/HDC (10/11) clean General: Alert, Oriented X3, Cooperative, No acute distress Heart: Regular rate, Normal S1, Other (irregularly irregular) Lungs: Clear, Wheezing (slight), Other (decrease bs) Abdomen: Soft, No tenderness Extremities: No clubbing, No cyanosis Skin: No rashes, No breakdown Labs LABS Laboratory Tests Test 10/16/18 06:20 White Blood Count 11.3 x10^3/uL (4.0-11.0) Red Blood Count 4.14 x10^6/uL (4.30-5.70) Hemoglobin 8.5 g/dL (13.0-17.5) Hematocrit 27.7 % (39.0-53.0) Mean Corpuscular Volume 67 fL (79-100) Mean Corpuscular Hemoglobin 21 pg (25-35) Mean Corpuscular Hemoglobin Concent 31 g/dL (31-37) Red Cell Distribution Width 28.9 % (11.5-14.5) Platelet Count 84 x10^3/uL (140-400) Neutrophils (%) (Auto) 68 % (31-73) Lymphocytes (%) (Auto) 11 % (24-48) Monocytes (%) (Auto) 19 % (0-9) Eosinophils (%) (Auto) 1 % (0-3) Basophils (%) (Auto) 0 % (0-3) Neutrophils # (Auto) 7.7 x10^3uL (1.8-7.7) Lymphocytes # (Auto) 1.3 x10^3/uL (1.0-4.8) Monocytes # (Auto) 2.1 x10^3/uL (0.0-1.1) Eosinophils # (Auto) 0.1 x10^3/uL (0.0-0.7) Basophils # (Auto) 0.0 x10^3/uL (0.0-0.2) Sodium Level 136 mmol/L (136-145) Potassium Level 3.7 mmol/L (3.5-5.1) Chloride Level 104 mmol/L (98-107) Carbon Dioxide Level 22 mmol/L (21-32) Anion Gap 10 (6-14) Blood Urea Nitrogen 17 mg/dL (8-26) Creatinine 0.9 mg/dL (0.7-1.3) Estimated GFR (Cockcroft-Gault) 85.5 Glucose Level 112 mg/dL (70-99) Calcium Level 8.0 mg/dL (8.5-10.1) Phosphorus Level 2.7 mg/dL (2.6-4.7) Magnesium Level 2.0 mg/dL (1.8-2.4) Review of Systems Review of Systems Patient denies MENDEZ Patient denies swelling of extremities Assessment and Plan Assessmemt and Plan Problems Medical Problems: (1) Lactic acidosis Status: Acute (2) Liver failure Status: Acute (3) Pneumonia Status: Acute (4) Renal failure Status: Acute Assessment: Metabolic encephalopathy Respiratory failure Alcoholism Shock liver Hypokalemia Hep C Coagulopathy Possible ischemic bowel Plan Tele monitoring EtOH withdrawal protocol when necessary IV lopressor PRN. Cardizem drip. PPN IV Antibiotics- meropenem Monitor labs DNR DVT prophylaxis GI, Surgery, Pulm, Neuro, Cardio, ID have followed Comment Review of Relevant I have reviewed the following items daysi (where applicable) has been applied. Labs Laboratory Tests Test 10/15/18 05:35 10/16/18 06:20 Sodium Level 134 mmol/L (136-145) 136 mmol/L (136-145) Potassium Level 3.2 mmol/L (3.5-5.1) 3.7 mmol/L (3.5-5.1) Chloride Level 100 mmol/L (98-107) 104 mmol/L (98-107) Carbon Dioxide Level 24 mmol/L (21-32) 22 mmol/L (21-32) Anion Gap 10 (6-14) 10 (6-14) Blood Urea Nitrogen 21 mg/dL (8-26) 17 mg/dL (8-26) Creatinine 1.0 mg/dL (0.7-1.3) 0.9 mg/dL (0.7-1.3) Estimated GFR (Cockcroft-Gault) 75.7 85.5 Glucose Level 111 mg/dL (70-99) 112 mg/dL (70-99) Calcium Level 8.2 mg/dL (8.5-10.1) 8.0 mg/dL (8.5-10.1) Phosphorus Level 2.4 mg/dL (2.6-4.7) 2.7 mg/dL (2.6-4.7) Magnesium Level 1.7 mg/dL (1.8-2.4) 2.0 mg/dL (1.8-2.4) White Blood Count 11.3 x10^3/uL (4.0-11.0) Red Blood Count 4.14 x10^6/uL (4.30-5.70) Hemoglobin 8.5 g/dL (13.0-17.5) Hematocrit 27.7 % (39.0-53.0) Mean Corpuscular Volume 67 fL (79-100) Mean Corpuscular Hemoglobin 21 pg (25-35) Mean Corpuscular Hemoglobin Concent 31 g/dL (31-37) Red Cell Distribution Width 28.9 % (11.5-14.5) Platelet Count 84 x10^3/uL (140-400) Neutrophils (%) (Auto) 68 % (31-73) Lymphocytes (%) (Auto) 11 % (24-48) Monocytes (%) (Auto) 19 % (0-9) Eosinophils (%) (Auto) 1 % (0-3) Basophils (%) (Auto) 0 % (0-3) Neutrophils # (Auto) 7.7 x10^3uL (1.8-7.7) Lymphocytes # (Auto) 1.3 x10^3/uL (1.0-4.8) Monocytes # (Auto) 2.1 x10^3/uL (0.0-1.1) Eosinophils # (Auto) 0.1 x10^3/uL (0.0-0.7) Basophils # (Auto) 0.0 x10^3/uL (0.0-0.2) Laboratory Tests Test 10/16/18 06:20 White Blood Count 11.3 x10^3/uL (4.0-11.0) Red Blood Count 4.14 x10^6/uL (4.30-5.70) Hemoglobin 8.5 g/dL (13.0-17.5) Hematocrit 27.7 % (39.0-53.0) Mean Corpuscular Volume 67 fL (79-100) Mean Corpuscular Hemoglobin 21 pg (25-35) Mean Corpuscular Hemoglobin Concent 31 g/dL (31-37) Red Cell Distribution Width 28.9 % (11.5-14.5) Platelet Count 84 x10^3/uL (140-400) Neutrophils (%) (Auto) 68 % (31-73) Lymphocytes (%) (Auto) 11 % (24-48) Monocytes (%) (Auto) 19 % (0-9) Eosinophils (%) (Auto) 1 % (0-3) Basophils (%) (Auto) 0 % (0-3) Neutrophils # (Auto) 7.7 x10^3uL (1.8-7.7) Lymphocytes # (Auto) 1.3 x10^3/uL (1.0-4.8) Monocytes # (Auto) 2.1 x10^3/uL (0.0-1.1) Eosinophils # (Auto) 0.1 x10^3/uL (0.0-0.7) Basophils # (Auto) 0.0 x10^3/uL (0.0-0.2) Sodium Level 136 mmol/L (136-145) Potassium Level 3.7 mmol/L (3.5-5.1) Chloride Level 104 mmol/L (98-107) Carbon Dioxide Level 22 mmol/L (21-32) Anion Gap 10 (6-14) Blood Urea Nitrogen 17 mg/dL (8-26) Creatinine 0.9 mg/dL (0.7-1.3) Estimated GFR (Cockcroft-Gault) 85.5 Glucose Level 112 mg/dL (70-99) Calcium Level 8.0 mg/dL (8.5-10.1) Phosphorus Level 2.7 mg/dL (2.6-4.7) Magnesium Level 2.0 mg/dL (1.8-2.4) Microbiology 10/10/18 Blood Culture - Final, Complete NO GROWTH AFTER 5 DAYS 10/12/18 Stool Culture - Final, Complete 10/12/18 Stool Culture Result 1 (JABIER) - Final, Complete 10/12/18 Campylobacter Antigen Assay - Final, Complete 10/12/18 Campylobactor Result 1 - Final, Complete 10/12/18 Shiga Toxin Test - Final, Complete Medications Current Medications Sodium Chloride 1,000 ml @ 1,000 mls/hr 1X ONCE IV Last administered on 10/10/18at 22:43; Start 10/10/18 at 22:00; Stop 10/10/18 at 22:59; Status DC Sodium Chloride 1,000 ml @ 1,000 mls/hr 1X ONCE IV Last administered on 10/10/18at 22:42; Start 10/10/18 at 22:00; Stop 10/10/18 at 22:59; Status DC Piperacillin Sod/ Tazobactam Sod (Zosyn Per Pharmacy) 1 each PRN DAILY PRN MC SEE COMMENTS; Start 10/10/18 at 22:00; Stop 10/10/18 at 22:33; Status DC Piperacillin Sod/ Tazobactam Sod 3.375 gm/Sodium Chloride 50 ml @ 100 mls/hr 1X ONCE IV Last administered on 10/10/18at 22:44; Start 10/10/18 at 22:15; Stop 10/10/18 at 22:44; Status DC Sodium Bicarbonate (Sodium Bicarb Adult 8.4% Syr) 50 meq 1X ONCE IV Last administered on 10/10/18at 22:43; Start 10/10/18 at 22:30; Stop 10/10/18 at 22:31; Status DC Calcium Gluconate (Calcium Gluconate) 1,000 mg 1X ONCE IVP Last administered on 10/10/18at 22:43; Start 10/10/18 at 22:30; Stop 10/10/18 at 22:31; Status DC Piperacillin Sod/ Tazobactam Sod (Zosyn Per Pharmacy) 1 each PRN DAILY PRN MC SEE COMMENTS; Start 10/10/18 at 22:45; Stop 10/14/18 at 08:32; Status DC Pantoprazole Sodium 80 mg/ Sodium Chloride 100 ml @ 10 mls/hr Q10H IV Last administered on 10/12/18at 08:31; Start 10/10/18 at 23:30; Stop 10/12/18 at 14:57; Status DC Phytonadione 10 mg/Dextrose 51 ml @ 102 mls/hr 1X ONCE IV Last administered on 10/10/18at 23:46; Start 10/10/18 at 23:30; Stop 10/10/18 at 23:59; Status DC Octreotide Acetate 500 mcg/ Sodium Chloride 101 ml @ 0 mls/hr CONT PRN IV SEE I/O RECORD Last administered on 10/12/18at 08:32; Start 10/10/18 at 23:45; Stop 10/12/18 at 14:57; Status DC Sodium Bicarbonate 50 meq/Dextrose 1,050 ml @ 125 mls/hr 1X ONCE IV Last administered on 10/11/18at 00:01; Start 10/10/18 at 23:55; Stop 10/11/18 at 08:18; Status DC Piperacillin Sod/ Tazobactam Sod 2.25 gm/Sodium Chloride 50 ml @ 100 mls/hr Q6HRS IV Last administered on 10/11/18at 05:30; Start 10/11/18 at 06:00; Stop 10/11/18 at 08:25; Status DC Meropenem 500 mg/ Sodium Chloride 50 ml @ 100 mls/hr Q8HRS IV ; Start 10/11/18 at 14:00; Stop 10/11/18 at 14:00; Status DC Ondansetron HCl (Zofran) 4 mg 1X ONCE IV Last administered on 10/11/18at 06:41; Start 10/11/18 at 06:45; Stop 10/11/18 at 06:46; Status DC Thiamine HCl 100 mg/Dextrose 51 ml @ 102 mls/hr 1X ONCE IV Last administered on 10/11/18at 07:40; Start 10/11/18 at 07:00; Stop 10/11/18 at 07:29; Status DC Folic Acid (Folic Acid) 1 mg DAILY PO ; Start 10/11/18 at 09:00; Stop 10/12/18 at 09:03; Status DC Levofloxacin/ Dextrose 50 ml @ 50 mls/hr 1X ONCE IV Last administered on 10/11/18at 07:42; Start 10/11/18 at 07:00; Stop 10/11/18 at 07:59; Status DC Albuterol Sulfate (Ventolin Neb Soln) 2.5 mg PRN Q4HRS PRN NEB SHORTNESS OF BREATH Last administered on 10/14/18at 03:05; Start 10/11/18 at 07:15 Lorazepam (Ativan) 1 mg 1X ONCE IV Last administered on 10/11/18at 07:37; Start 10/11/18 at 07:30; Stop 10/11/18 at 09:35; Status DC Lorazepam (Ativan) 1 mg PRN Q3HRS PRN IV ANXIETY / AGITATION; Start 10/11/18 at 08:00; Stop 10/11/18 at 09:35; Status DC Piperacillin Sod/ Tazobactam Sod 2.25 gm/Sodium Chloride 50 ml @ 100 mls/hr Q8HRS IV Last administered on 10/13/18at 05:34; Start 10/11/18 at 14:00; Stop 10/13/18 at 08:15; Status DC Ondansetron HCl (Zofran) 4 mg PRN Q6HRS PRN IV NAUSEA/VOMITING; Start 10/11/18 at 08:45 Lactulose (Lactulose) 30 gm TID PO ; Start 10/11/18 at 09:30; Stop 10/11/18 at 11:25; Status DC Sodium Bicarbonate 50 meq/Dextrose 1,050 ml @ 60 mls/hr [id number] IV Last administered on 10/12/18at 02:21; Start 10/11/18 at 10:00; Stop 10/12/18 at 10:58; Status DC Dexmedetomidine HCl 200 mcg/ Sodium Chloride 50 ml @ 0 mls/hr CONT PRN IV PER PROTOCOL Last administered on 10/13/18at 07:33; Start 10/11/18 at 09:45; Stop 10/16/18 at 09:56; Status DC Sodium Chloride 500 ml @ 500 mls/hr 1X PRN PRN IV SEE COMMENTS; Start 10/11/18 at 09:45 Atropine Sulfate (ATROPINE 0.5mg SYRINGE) 0.5 mg PRN Q5MIN PRN IV SEE COMMENTS; Start 10/11/18 at 09:45 Sodium Bicarbonate (Sodium Bicarb Adult 8.4% Syr) 50 meq STK-MED ONCE .ROUTE ; Start 10/11/18 at 09:42; Stop 10/11/18 at 09:43; Status DC Sodium Bicarbonate (Sodium Bicarb Adult 8.4% Syr) 100 meq 1X ONCE IV Last administered on 10/11/18at 10:00; Start 10/11/18 at 10:00; Stop 10/11/18 at 10:01; Status DC Lactulose (Lactulose) 30 gm TID NE ; Start 10/11/18 at 12:00; Stop 10/11/18 at 13:06; Status DC Lidocaine/Sodium Bicarbonate (Buffered Lidocaine 1%) 3 ml STK-MED ONCE .ROUTE ; Start 10/11/18 at 12:34; Stop 10/11/18 at 12:35; Status DC Heparin Sodium (Porcine) (Heparin Sodium) 10,000 unit STK-MED ONCE .ROUTE ; Start 10/11/18 at 12:34; Stop 10/11/18 at 12:35; Status DC Lactulose (Lactulose) 200 gm TID NE Last administered on 10/11/18at 20:55; Start 10/11/18 at 14:00; Stop 10/12/18 at 09:22; Status DC Sodium Chloride 1,000 ml @ 1,000 mls/hr Q1H PRN IV hypotension; Start 10/11/18 at 13:06; Stop 10/11/18 at 19:05; Status DC Albumin Human 200 ml @ 200 mls/hr 1X PRN PRN IV Hypotension; Start 10/11/18 at 13:15; Stop 10/11/18 at 19:14; Status DC Sodium Chloride (Normal Saline Flush) 10 ml 1X PRN PRN IV AP catheter pack; Start 10/11/18 at 13:15; Stop 10/12/18 at 13:14; Status DC Sodium Chloride (Normal Saline Flush) 10 ml 1X PRN PRN IV PARTS RUNNER catheter pack; Start 10/11/18 at 13:15; Stop 10/12/18 at 13:14; Status DC Sodium Chloride 1,000 ml @ 400 mls/hr Q2H30M PRN IV PATENCY; Start 10/11/18 at 13:06; Stop 10/12/18 at 01:05; Status DC Info (PHARMACY MONITORING -- do not chart) 1 each PRN DAILY PRN MC SEE COMMENTS; Start 10/11/18 at 13:15; Status UNV Info (PHARMACY MONITORING -- do not chart) 1 each PRN DAILY PRN MC SEE COMMENTS; Start 10/11/18 at 13:15; Stop 10/15/18 at 13:41; Status DC Lidocaine/Sodium Bicarbonate (Buffered Lidocaine 1%) 6 ml 1X ONCE INJ Last administered on 10/11/18at 13:42; Start 10/11/18 at 13:45; Stop 10/11/18 at 13:46; Status DC Potassium Chloride/Water 50 ml @ 50 mls/hr 1X ONCE IV Last administered on 10/12/18at 09:30; Start 10/12/18 at 09:00; Stop 10/12/18 at 09:59; Status DC Lactulose (Lactulose) 200 gm PRN TID PRN NE CONFUSION Last administered on 10/12/18at 11:37; Start 10/12/18 at 09:30 Amino Acids/ Glycerin/ Electrolytes 1,000 ml @ 60 mls/hr [id number] IV Last administered on 10/15/18at 21:01; Start 10/12/18 at 10:00 Amino Acids/ Glycerin/ Electrolytes 1,000 ml @ As Directed STK-MED ONCE IV ; Start 10/12/18 at 09:58; Stop 10/12/18 at 09:59; Status DC Pantoprazole Sodium (PROTONIX VIAL for IV PUSH) 40 mg BID IVP Last administered on 10/16/18at 08:55; Start 10/12/18 at 21:00 Albumin Human 50 ml @ 50 mls/hr 1X ONCE IV Last administered on 10/12/18at 18: 04; Start 10/12/18 at 18:00; Stop 10/12/18 at 18:59; Status DC Potassium Chloride/Water 100 ml @ 100 mls/hr Q1H IV Last administered on 10/13/18at 11:33; Start 10/13/18 at 07:00; Stop 10/13/18 at 10:59; Status DC Piperacillin Sod/ Tazobactam Sod 2.25 gm/Sodium Chloride 50 ml @ 100 mls/hr Q6HRS IV Last administered on 10/14/18at 05:59; Start 10/13/18 at 12:00; Stop 10/14/18 at 08:32; Status DC Potassium Chloride/Water 50 ml @ 50 mls/hr PRN Q1HR PRN IV SEE ORDER COMMENTS; Start 10/13/18 at 10:45 Potassium Chloride/Water 50 ml @ 50 mls/hr PRN Q1HR PRN IV SEE ORDER COMMENTS; Start 10/13/18 at 10:45 Potassium Chloride/Water 50 ml @ 50 mls/hr PRN Q1HR PRN IV SEE ORDER COMMENTS; Start 10/13/18 at 11:00 Metoprolol Tartrate (Lopressor Vial) 2.5 mg Q6HRS IVP Last administered on 10/13/18at 16:51; Start 10/13/18 at 15:00; Stop 10/13/18 at 17:22; Status DC Metoprolol Tartrate (Lopressor Vial) 5 mg Q6HRS IVP Last administered on 10/14/18at 05:25; Start 10/13/18 at 18:00; Stop 10/14/18 at 08:54; Status DC Digoxin (Lanoxin) 500 mcg 1X ONCE IV Last administered on 10/13/18at 17:37; Start 10/13/18 at 17:30; Stop 10/13/18 at 17:31; Status DC Potassium Chloride/Water 50 ml @ 0 mls/hr Q1H IV Last administered on 10/14/18at 11:50; Start 10/14/18 at 09:00; Stop 10/14/18 at 12:01; Status DC Diltiazem HCl 125 mg/Dextrose 125 ml @ 5 mls/hr CONT PRN IV SEE I/O RECORD Last administered on 10/15/18at 18:33; Start 10/14/18 at 09:00 Diltiazem HCl (Cardizem Iv Push) 10 mg 1X ONCE IVP Last administered on 10/14/18at 09:06; Start 10/14/18 at 09:00; Stop 10/14/18 at 09:01; Status DC Metoprolol Tartrate (Lopressor Vial) 5 mg PRN Q6HRS PRN IVP HYPERTENSION, SEE COMMENTS; Start 10/14/18 at 09:00 Potassium Phosphate 15 mmol/ Sodium Chloride 255 ml @ 127.5 mls/ hr 1X ONCE IV Last administered on 10/14/18at 11:17; Start 10/14/18 at 11:00; Stop 10/14/18 at 12:59; Status DC Fentanyl Citrate (Fentanyl 2ml Vial) 50 mcg PRN Q2HR PRN IV PAIN Last administered on 10/15/18at 08:20; Start 10/14/18 at 13:00 Meropenem 500 mg/ Sodium Chloride 50 ml @ 100 mls/hr Q6HRS IV Last a dministered on 10/16/18at 06:13; Start 10/15/18 at 08:00 Potassium Chloride/Water 50 ml @ 50 mls/hr Q1H IV Last administered on 10/15/18at 11:01; Start 10/15/18 at 10:30; Stop 10/15/18 at 12:29; Status DC Magnesium Sulfate 50 ml @ 25 mls/hr 1X ONCE IV Last administered on 10/15/18at 12:22; Start 10/15/18 at 10:30; Stop 10/15/18 at 12:29; Status DC Sodium Phosphate 20 mmol/Dextrose 256.6667 ml @ 64.167 m... 1X ONCE IV Last administered on 10/15/18at 11:01; Start 10/15/18 at 10:30; Stop 10/15/18 at 14:29; Status DC Active Scripts Active Lactulose 20 Gm/30 Ml Solution 20 Gm PO PRN TID PRN 30 Days Klor-Con M20 (Potassium Chloride) 20 Meq Tab.er.prt 40 Meq PO DAILY 30 Days [Pantoprazole] 40 MG Tablet.dr 40 Mg PO DAILYAC 30 Days Hydroxyzine Pamoate 25 Mg Capsule 25 Mg PO PRN Q8HRS PRN 30 Days Aspirin Ec (Aspirin) 81 Mg Tablet.dr 81 Mg PO DAILYWBKFT 30 Days [Diltiazem Hcl] 240 MG Cap.er.24h 240 Mg PO DAILY 30 Days Metoprolol Tartrate 25 Mg Tablet 25 Mg PO BID 30 Days Vitamin B-1 (Thiamine Mononitrate) 100 Mg Tablet 100 Mg PO DAILY Hydrocodone-Apap 7.5-325 (Hydrocodone Bit/Acetaminophen) 1 Each Tablet 1 Tab PO PRN Q3HRS PRN Folic Acid 1 Mg Tablet 1 Mg PO DAILY Reported Tums (Calcium Carbonate) 300 Mg Tab.chew 300 Mg PO TIDAC PRN Cyclobenzaprine Hcl 10 Mg Tablet 1 Tab PO QHS Gabapentin (Gabapentin) 300 Mg Capsule 300 Mg PO TID Vitals/I & O Vital Sign - Last 24 Hours 10/15/18 10/15/18 10/15/18 10/15/18 12:00 16:00 16:10 18:11 Temp 98.3 98.0 98.5 98.3 98.0 98.5 Pulse 88 90 94 Resp 22 18 B/P (MAP) 150/88 (108) 138/86 (103) 148/82 (104) Pulse Ox 95 96 96 O2 Delivery Room Air Room Air Room Air Room Air 10/15/18 10/15/18 10/15/18 10/16/18 20:00 20:44 23:32 03:00 Temp 97.6 98.3 97.6 98.3 Pulse 90 98 93 Resp 19 18 B/P (MAP) 148/81 (103) 144/90 (108) 146/87 (106) Pulse Ox 99 95 O2 Delivery Room Air Room Air Room Air 10/16/18 10/16/18 07:00 08:00 Temp 98.8 98.8 Pulse 83 Resp 18 B/P (MAP) 159/85 (109) Pulse Ox 95 O2 Delivery Room Air Room Air Intake and Output 10/15/18 10/15/18 10/16/18 15:00 23:00 07:00 Intake Total 399 ml Output Total 600 ml 700 ml Balance -600 ml -301 ml JENNIFER WHITE III DO October 16, 2018 10:52
[2018-10-16 11:00] VITALS: BP 152/77
[2018-10-16] MEDS: dilTIAZem INJ 125 MG in IV DEXTROSE 5% 100ML 100 ML IV PRN ×2 (13:09→20:47)
[2018-10-16] MEDS: AMINO AC 3%/ELECTROLYTE/GLYCER 1,000 ML IV SCH (13:12)
[2018-10-16 13:39] LABS: PROTHROMBIN TIME PATIENT 17.8 SEC (11.7-14.0)
--- NOTE | 2018-10-16 14:58 | NUR ---
SS following up with discharge planning. PT recommended home. Pt is currently on room air. SS will continue to follow for discharge planning.
[2018-10-16 15:00] VITALS: BP 152/82
--- NOTE | 2018-10-16 16:03 | RAD ---
Portable chest, 10/16/2018: HISTORY: Atelectasis Comparison is made to a study from 10/11/2018. A right jugular dialysis type catheter remains in place extending into the superior aspect of the right atrium. The heart is at the upper limits of normal in size. There are predominantly interstitial opacities in both lungs, similar to those seen on the previous study. Pleural effusions evident on the 10/14/2018 CT study are not visible on this AP portable exam. No new pulmonary abnormality is seen. There is no evidence of pneumothorax. IMPRESSION: Ongoing predominantly interstitial bilateral pulmonary opacities suggesting interstitial edema superimposed upon fibrosis. Electronically signed by: Brayan Fountain MD (10/16/2018 4:00 PM) [facility]
--- NOTE | 2018-10-16 16:14 | PDOC ---
G I PROGRESS NOTE Subjective Pain much better. Not a lot of stool, but flatus. Physical Exam Lungs clear. IRRR Abdomen soft, nil tenderness RLQ. Review of Relevant I have reviewed the following items daysi (where applicable) has been applied. Labs Laboratory Tests Test 10/15/18 05:35 10/16/18 06:20 10/16/18 13:18 Sodium Level 134 mmol/L (136-145) 136 mmol/L (136-145) Potassium Level 3.2 mmol/L (3.5-5.1) 3.7 mmol/L (3.5-5.1) Chloride Level 100 mmol/L (98-107) 104 mmol/L (98-107) Carbon Dioxide Level 24 mmol/L (21-32) 22 mmol/L (21-32) Anion Gap 10 (6-14) 10 (6-14) Blood Urea Nitrogen 21 mg/dL (8-26) 17 mg/dL (8-26) Creatinine 1.0 mg/dL (0.7-1.3) 0.9 mg/dL (0.7-1.3) Estimated GFR (Cockcroft-Gault) 75.7 85.5 Glucose Level 111 mg/dL (70-99) 112 mg/dL (70-99) Calcium Level 8.2 mg/dL (8.5-10.1) 8.0 mg/dL (8.5-10.1) Phosphorus Level 2.4 mg/dL (2.6-4.7) 2.7 mg/dL (2.6-4.7) Magnesium Level 1.7 mg/dL (1.8-2.4) 2.0 mg/dL (1.8-2.4) White Blood Count 11.3 x10^3/uL (4.0-11.0) Red Blood Count 4.14 x10^6/uL (4.30-5.70) Hemoglobin 8.5 g/dL (13.0-17.5) Hematocrit 27.7 % (39.0-53.0) Mean Corpuscular Volume 67 fL (79-100) Mean Corpuscular Hemoglobin 21 pg (25-35) Mean Corpuscular Hemoglobin Concent 31 g/dL (31-37) Red Cell Distribution Width 28.9 % (11.5-14.5) Platelet Count 84 x10^3/uL (140-400) Neutrophils (%) (Auto) 68 % (31-73) Lymphocytes (%) (Auto) 11 % (24-48) Monocytes (%) (Auto) 19 % (0-9) Eosinophils (%) (Auto) 1 % (0-3) Basophils (%) (Auto) 0 % (0-3) Neutrophils # (Auto) 7.7 x10^3uL (1.8-7.7) Lymphocytes # (Auto) 1.3 x10^3/uL (1.0-4.8) Monocytes # (Auto) 2.1 x10^3/uL (0.0-1.1) Eosinophils # (Auto) 0.1 x10^3/uL (0.0-0.7) Basophils # (Auto) 0.0 x10^3/uL (0.0-0.2) Prothrombin Time 17.8 SEC (11.7-14.0) Prothromb Time International Ratio 1.5 (0.8-1.1) Laboratory Tests Test 10/16/18 06:20 10/16/18 13:18 White Blood Count 11.3 x10^3/uL (4.0-11.0) Red Blood Count 4.14 x10^6/uL (4.30-5.70) Hemoglobin 8.5 g/dL (13.0-17.5) Hematocrit 27.7 % (39.0-53.0) Mean Corpuscular Volume 67 fL (79-100) Mean Corpuscular Hemoglobin 21 pg (25-35) Mean Corpuscular Hemoglobin Concent 31 g/dL (31-37) Red Cell Distribution Width 28.9 % (11.5-14.5) Platelet Count 84 x10^3/uL (140-400) Neutrophils (%) (Auto) 68 % (31-73) Lymphocytes (%) (Auto) 11 % (24-48) Monocytes (%) (Auto) 19 % (0-9) Eosinophils (%) (Auto) 1 % (0-3) Basophils (%) (Auto) 0 % (0-3) Neutrophils # (Auto) 7.7 x10^3uL (1.8-7.7) Lymphocytes # (Auto) 1.3 x10^3/uL (1.0-4.8) Monocytes # (Auto) 2.1 x10^3/uL (0.0-1.1) Eosinophils # (Auto) 0.1 x10^3/uL (0.0-0.7) Basophils # (Auto) 0.0 x10^3/uL (0.0-0.2) Sodium Level 136 mmol/L (136-145) Potassium Level 3.7 mmol/L (3.5-5.1) Chloride Level 104 mmol/L (98-107) Carbon Dioxide Level 22 mmol/L (21-32) Anion Gap 10 (6-14) Blood Urea Nitrogen 17 mg/dL (8-26) Creatinine 0.9 mg/dL (0.7-1.3) Estimated GFR (Cockcroft-Gault) 85.5 Glucose Level 112 mg/dL (70-99) Calcium Level 8.0 mg/dL (8.5-10.1) Phosphorus Level 2.7 mg/dL (2.6-4.7) Magnesium Level 2.0 mg/dL (1.8-2.4) Prothrombin Time 17.8 SEC (11.7-14.0) Prothromb Time International Ratio 1.5 (0.8-1.1) Microbiology 10/10/18 Blood Culture - Final, Complete NO GROWTH AFTER 5 DAYS 10/12/18 Stool Culture - Final, Complete 10/12/18 Stool Culture Result 1 (JABIER) - Final, Complete 10/12/18 Campylobacter Antigen Assay - Final, Complete 10/12/18 Campylobactor Result 1 - Final, Complete 10/12/18 Shiga Toxin Test - Final, Complete Labs stable/improved. Vitals/I & O Vital Sign - Last 24 Hours 10/15/18 10/15/18 10/15/18 10/15/18 18:11 20:00 20:44 23:32 Temp 98.5 97.6 98.5 97.6 Pulse 94 90 98 Resp 18 19 B/P (MAP) 148/82 (104) 148/81 (103) 144/90 (108) Pulse Ox 96 99 O2 Delivery Room Air Room Air Room Air 10/16/18 10/16/18 10/16/18 10/16/18 03:00 07:00 08:00 11:00 Temp 98.3 98.8 98.0 98.3 98.8 98.0 Pulse 93 83 96 Resp 18 18 18 B/P (MAP) 146/87 (106) 159/85 (109) 152/77 (102) Pulse Ox 95 95 98 O2 Delivery Room Air Room Air Room Air Room Air 10/16/18 15:00 Temp 98.3 98.3 Pulse 90 Resp 18 B/P (MAP) 152/82 (105) Pulse Ox 96 O2 Delivery Room Air Intake and Output 10/15/18 10/15/18 10/16/18 15:00 23:00 07:00 Intake Total 399 ml Output Total 600 ml 700 ml Balance -600 ml -301 ml Problem List Problems Medical Problems: (1) Lactic acidosis Status: Acute (2) Liver failure Status: Acute (3) Pneumonia Status: Acute (4) Renal failure Status: Acute Assessment Ischemic colitis? Better regardless. ALLI HEP C Plan of Care Note Will try full liquids and observe; advance if tolerated. Ultimately merits w/u for the ALLI. REJI FANG MD October 16, 2018 16:14
[2018-10-16] MEDS: METOPROLOL TARTRATE 5 MG/5 ML VIAL. IVP SCH ×2 (18:15→23:22)
[2018-10-16 19:37] VITALS: BP 149/84
[2018-10-16 23:25] VITALS: BP 154/85
[2018-10-17 03:16] VITALS: BP 147/86
[2018-10-17 03:48] LABS: BASO % 0 % (0-3); EOS # 0.2 x10^3/uL (0.0-0.7); EOS % 2 % (0-3); HEMATOCRIT 28.9 % (39.0-53.0); HEMOGLOBIN 8.9 g/dL (13.0-17.5); LYMPH # 1.4 x10^3/uL (1.0-4.8); LYMPH % 13 % (24-48); MEAN CORPUSCULAR HEMOGLOBIN 21 pg (25-35); MEAN CORPUSCULAR HGB CONC 31 g/dL (31-37); MEAN CORPUSCULAR VOLUME 67 fL (79-100); MONO # 1.8 x10^3/uL (0.0-1.1); MONO % 17 % (0-9); NEUT # 7.1 x10^3uL (1.8-7.7); NEUT % 67 % (31-73); PLATELET COUNT 95 x10^3/uL (140-400); RED CELL DISTRIBUTION WIDTH 29.8 % (11.5-14.5); WHITE BLOOD COUNT 10.7 x10^3/uL (4.0-11.0)
[2018-10-17 04:05] LABS: ALBUMIN 2.3 g/dL (3.4-5.0); ALBUMIN/GLOBULIN RATIO 0.7 (1.0-1.7); CALCIUM 8.1 mg/dL (8.5-10.1); CREATININE 0.9 mg/dL (0.7-1.3); GFR 85.5; POTASSIUM 3.7 mmol/L (3.5-5.1); TOTAL BILIRUBIN 2.3 mg/dL (0.2-1.0); TOTAL PROTEIN 5.8 g/dL (6.4-8.2)
[2018-10-17] MEDS: METOPROLOL TARTRATE 5 MG/5 ML VIAL. IVP SCH ×2 (05:36→12:20)
[2018-10-17] MEDS: MEROPENEM 500 MG in IV NORMAL SALINE 50ML 50 ML IV SCH ×4 (05:36→23:06)
[2018-10-17] MEDS: AMINO AC 3%/ELECTROLYTE/GLYCER 1,000 ML IV SCH ×2 (05:45→23:20)
[2018-10-17] MEDS: dilTIAZem INJ 125 MG in IV DEXTROSE 5% 100ML 100 ML IV PRN (05:45)
[2018-10-17 07:26] VITALS: BP 143/80
--- NOTE | 2018-10-17 07:41 | PDOC ---
Infectious Disease Note Subjective: Subjective pt is doing better abdo pain is improving no nausea/f/c no diarrhea d/w rn ROS: ROS Negative except for above. Vital Signs: Vital Signs Vital Signs Date Time Temp Pulse Resp B/P (MAP) Pulse Ox O2 Delivery O2 Flow Rate FiO2 10/17/18 07:26 98.0 82 17 143/80 (101) 95 Room Air 98.0 Physical Exam: PHYSICAL EXAM GENERAL: alert awake HENT: PERRL. 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 Nontunneled RIJ/HDC (10/11) clean Medications: Inpatient Meds: Current Medications Medications (Trade) Dose Ordered Sig/Debbie Start Time Stop Time Status Last Admin Dose Admin Albumin Human 50 ml @ 50 mls/hr 1X ONCE 10/12/18 18:00 10/12/18 18:59 DC 10/12/18 18:04 50 MLS/HR Albuterol Sulfate (Ventolin Neb Soln) 2.5 mg PRN Q4HRS PRN 10/11/18 07:15 10/14/18 03:05 2.5 MG Amino Acids/ Glycerin/ Electrolytes 1,000 ml @ As Directed STK-MED ONCE 10/12/18 09:58 10/12/18 09:59 DC Atropine Sulfate (ATROPINE 0.5mg SYRINGE) 0.5 mg PRN Q5MIN PRN 10/11/18 09:45 Calcium Gluconate (Calcium Gluconate) 1,000 mg 1X ONCE 10/10/18 22:30 10/10/18 22:31 DC 10/10/18 22:43 1,000 MG Dexmedetomidine HCl 200 mcg/ Sodium Chloride 50 ml @ 0 mls/hr CONT PRN 10/11/18 09:45 10/16/18 09:56 DC 10/13/18 07:33 13.3 MLS/HR Digoxin (Lanoxin) 500 mcg 1X ONCE 10/13/18 17:30 10/13/18 17:31 DC 10/13/18 17:37 500 MCG Diltiazem HCl (Cardizem Iv Push) 10 mg 1X ONCE 10/14/18 09:00 10/14/18 09:01 DC 10/14/18 09:06 10 MG Diltiazem HCl 125 mg/Dextrose 125 ml @ 5 mls/hr CONT PRN 10/14/18 09:00 10/17/18 05:45 15 MLS/HR Fentanyl Citrate (Fentanyl 2ml Vial) 50 mcg PRN Q2HR PRN 10/14/18 13:00 10/15/18 08:20 50 MCG Folic Acid (Folic Acid) 1 mg DAILY 10/11/18 09:00 10/12/18 09:03 DC Heparin Sodium (Porcine) (Heparin Sodium) 10,000 unit STK-MED ONCE 10/11/18 12:34 10/11/18 12:35 DC Info (PHARMACY MONITORING -- do not chart) 1 each PRN DAILY PRN 10/11/18 13:15 10/15/18 13:41 DC Lactulose (Lactulose) 200 gm PRN TID PRN 10/12/18 09:30 10/12/18 11:37 200 GM Levofloxacin/ Dextrose 50 ml @ 50 mls/hr 1X ONCE 10/11/18 07:00 10/11/18 07:59 DC 10/11/18 07:42 50 MLS/HR Lidocaine/Sodium Bicarbonate (Buffered Lidocaine 1%) 6 ml 1X ONCE 10/11/18 13:45 10/11/18 13:46 DC 10/11/18 13:42 4 ML Lorazepam (Ativan) 1 mg PRN Q3HRS PRN 10/11/18 08:00 10/11/18 09:35 DC Magnesium Sulfate 50 ml @ 25 mls/hr 1X ONCE 10/15/18 10:30 10/15/18 12:29 DC 10/15/18 12:22 25 MLS/HR Meropenem 500 mg/ Sodium Chloride 50 ml @ 100 mls/hr Q6HRS 10/15/18 08:00 10/17/18 05:36 100 MLS/HR Metoprolol Tartrate (Lopressor Vial) 2.5 mg Q6HRS 10/16/18 18:00 10/17/18 05:36 2.5 MG Octreotide Acetate 500 mcg/ Sodium Chloride 101 ml @ 0 mls/hr CONT PRN 10/10/18 23:45 10/12/18 14:57 DC 10/12/18 08:32 5 MLS/HR Ondansetron HCl (Zofran) 4 mg PRN Q6HRS PRN 10/11/18 08:45 Pantoprazole Sodium (PROTONIX VIAL for IV PUSH) 40 mg BID 10/12/18 21:00 10/16/18 20:46 40 MG Pantoprazole Sodium 80 mg/ Sodium Chloride 100 ml @ 10 mls/hr Q10H 10/10/18 23:30 10/12/18 14:57 DC 10/12/18 08:31 10 MLS/HR Phytonadione 10 mg/Dextrose 51 ml @ 102 mls/hr 1X ONCE 10/10/18 23:30 10/10/18 23:59 DC 10/10/18 23:46 102 MLS/HR Piperacillin Sod/ Tazobactam Sod (Zosyn Per Pharmacy) 1 each PRN DAILY PRN 10/10/18 22:45 10/14/18 08:32 DC Piperacillin Sod/ Tazobactam Sod 2.25 gm/Sodium Chloride 50 ml @ 100 mls/hr Q6HRS 10/13/18 12:00 10/14/18 08:32 DC 10/14/18 05:59 100 MLS/HR Piperacillin Sod/ Tazobactam Sod 3.375 gm/Sodium Chloride 50 ml @ 100 mls/hr 1X ONCE 10/10/18 22:15 10/10/18 22:44 DC 10/10/18 22:44 100 MLS/HR Potassium Chloride/Water 50 ml @ 50 mls/hr Q1H 10/15/18 10:30 10/15/18 12:29 DC 10/15/18 11:01 50 MLS/HR Potassium Phosphate 15 mmol/ Sodium Chloride 255 ml @ 127.5 mls/ hr 1X ONCE 10/14/18 11:00 10/14/18 12:59 DC 10/14/18 11:17 127.5 MLS/HR Sodium Bicarbonate 50 meq/Dextrose 1,050 ml @ 60 mls/hr [id number] 10/11/18 10:00 10/12/18 10:58 DC 10/12/18 02:21 125 MLS/HR Sodium Bicarbonate (Sodium Bicarb Adult 8.4% Syr) 100 meq 1X ONCE 10/11/18 10:00 10/11/18 10:01 DC 10/11/18 10:00 100 MEQ Sodium Chloride 1,000 ml @ 400 mls/hr Q2H30M PRN 10/11/18 13:06 10/12/18 01:05 DC Sodium Chloride (Normal Saline Flush) 10 ml 1X PRN PRN 10/11/18 13:15 10/12/18 13:14 DC Sodium Phosphate 20 mmol/Dextrose 256.6667 ml @ 64.167 m... 1X ONCE 10/15/18 10:30 10/15/18 14:29 DC 10/15/18 11:01 64.167 MLS/HR Thiamine HCl 100 mg/Dextrose 51 ml @ 102 mls/hr 1X ONCE 10/11/18 07:00 10/11/18 07:29 DC 10/11/18 07:40 102 MLS/HR Labs: Lab Laboratory Tests Test 10/16/18 13:18 10/17/18 03:30 Prothrombin Time 17.8 SEC (11.7-14.0) Prothromb Time International Ratio 1.5 (0.8-1.1) White Blood Count 10.7 x10^3/uL (4.0-11.0) Red Blood Count 4.30 x10^6/uL (4.30-5.70) Hemoglobin 8.9 g/dL (13.0-17.5) Hematocrit 28.9 % (39.0-53.0) Mean Corpuscular Volume 67 fL (79-100) Mean Corpuscular Hemoglobin 21 pg (25-35) Mean Corpuscular Hemoglobin Concent 31 g/dL (31-37) Red Cell Distribution Width 29.8 % (11.5-14.5) Platelet Count 95 x10^3/uL (140-400) Neutrophils (%) (Auto) 67 % (31-73) Lymphocytes (%) (Auto) 13 % (24-48) Monocytes (%) (Auto) 17 % (0-9) Eosinophils (%) (Auto) 2 % (0-3) Basophils (%) (Auto) 0 % (0-3) Neutrophils # (Auto) 7.1 x10^3uL (1.8-7.7) Lymphocytes # (Auto) 1.4 x10^3/uL (1.0-4.8) Monocytes # (Auto) 1.8 x10^3/uL (0.0-1.1) Eosinophils # (Auto) 0.2 x10^3/uL (0.0-0.7) Basophils # (Auto) 0.0 x10^3/uL (0.0-0.2) Sodium Level 136 mmol/L (136-145) Potassium Level 3.7 mmol/L (3.5-5.1) Chloride Level 104 mmol/L (98-107) Carbon Dioxide Level 21 mmol/L (21-32) Anion Gap 11 (6-14) Blood Urea Nitrogen 16 mg/dL (8-26) Creatinine 0.9 mg/dL (0.7-1.3) Estimated GFR (Cockcroft-Gault) 85.5 BUN/Creatinine Ratio 18 (6-20) Glucose Level 107 mg/dL (70-99) Calcium Level 8.1 mg/dL (8.5-10.1) Total Bilirubin 2.3 mg/dL (0.2-1.0) Aspartate Amino Transf (AST/SGOT) 64 U/L (15-37) Alanine Aminotransferase (ALT/SGPT) 350 U/L (16-63) Alkaline Phosphatase 87 U/L (46-116) Total Protein 5.8 g/dL (6.4-8.2) Albumin 2.3 g/dL (3.4-5.0) Albumin/Globulin Ratio 0.7 (1.0-1.7) Micro CT A/P IMPRESSION: 1. Persistent mural thickening involving the cecum raising the possibility of neoplasm versus nonspecific colitis. 2. A small amount of free fluid has developed in the abdomen and pelvis. 3. Mild generalized mesenteric edema. 4. Increasing small right pleural effusion and new small left pleural effusion with mild bibasilar atelectasis. 5. Cholelithiasis. Objective: Assessment: Sepsis with lactic acidosis source GI ischemic colitis Leukocytosis resolved Acute encephalopathy likely metabolic with hepatic failure,improved NATHANIEL on CKD Acute liver failure ,ammonia wnl Respiratory insufficiency, O2 5L Abdo pain CT showsing Persistent mural thickening involving the cecum raising the possibility of neoplasm versus nonspecific colitis. Mild generalized mesenteric edema. Cholelithiasis A- fib Hep C, VL 24,700 Anemia s/p fall Recent hospitalization Myoclonic movements bue, from hepatic failure improved pleural effusion with mild bibasilar atelectasis. Plan: Plan of Care LYLA Mejia on discharge augmentin for 5 days for dc home today One time dose Levaquin, / tx for etoh d/w FIDELIA Sylvester MD October 17, 2018 07:40
--- NOTE | 2018-10-17 08:09 | PDOC ---
SURGICAL PROGRESS NOTE Subjective Pt without c/o, pain resolved, howard PO, passing flatus and stool Vital Signs Vital Signs Date Time Temp Pulse Resp B/P (MAP) Pulse Ox O2 Delivery O2 Flow Rate FiO2 10/17/18 07:26 98.0 82 17 143/80 (101) 95 Room Air 98.0 I&O Intake and Output 10/17/18 07:00 Intake Total 1450 ml Output Total 1125 ml Balance 325 ml IV Total 1450 ml Output Urine Total 1125 ml # Bowel Movements 2 General: Alert, Oriented X3, Cooperative, No acute distress Abdomen: Soft, No tenderness Labs Laboratory Tests Test 10/16/18 06:20 10/16/18 13:18 10/17/18 03:30 White Blood Count 11.3 x10^3/uL (4.0-11.0) 10.7 x10^3/uL (4.0-11.0) Red Blood Count 4.14 x10^6/uL (4.30-5.70) 4.30 x10^6/uL (4.30-5.70) Hemoglobin 8.5 g/dL (13.0-17.5) 8.9 g/dL (13.0-17.5) Hematocrit 27.7 % (39.0-53.0) 28.9 % (39.0-53.0) Mean Corpuscular Volume 67 fL (79-100) 67 fL (79-100) Mean Corpuscular Hemoglobin 21 pg (25-35) 21 pg (25-35) Mean Corpuscular Hemoglobin Concent 31 g/dL (31-37) 31 g/dL (31-37) Red Cell Distribution Width 28.9 % (11.5-14.5) 29.8 % (11.5-14.5) Platelet Count 84 x10^3/uL (140-400) 95 x10^3/uL (140-400) Neutrophils (%) (Auto) 68 % (31-73) 67 % (31-73) Lymphocytes (%) (Auto) 11 % (24-48) 13 % (24-48) Monocytes (%) (Auto) 19 % (0-9) 17 % (0-9) Eosinophils (%) (Auto) 1 % (0-3) 2 % (0-3) Basophils (%) (Auto) 0 % (0-3) 0 % (0-3) Neutrophils # (Auto) 7.7 x10^3uL (1.8-7.7) 7.1 x10^3uL (1.8-7.7) Lymphocytes # (Auto) 1.3 x10^3/uL (1.0-4.8) 1.4 x10^3/uL (1.0-4.8) Monocytes # (Auto) 2.1 x10^3/uL (0.0-1.1) 1.8 x10^3/uL (0.0-1.1) Eosinophils # (Auto) 0.1 x10^3/uL (0.0-0.7) 0.2 x10^3/uL (0.0-0.7) Basophils # (Auto) 0.0 x10^3/uL (0.0-0.2) 0.0 x10^3/uL (0.0-0.2) Sodium Level 136 mmol/L (136-145) 136 mmol/L (136-145) Potassium Level 3.7 mmol/L (3.5-5.1) 3.7 mmol/L (3.5-5.1) Chloride Level 104 mmol/L (98-107) 104 mmol/L (98-107) Carbon Dioxide Level 22 mmol/L (21-32) 21 mmol/L (21-32) Anion Gap 10 (6-14) 11 (6-14) Blood Urea Nitrogen 17 mg/dL (8-26) 16 mg/dL (8-26) Creatinine 0.9 mg/dL (0.7-1.3) 0.9 mg/dL (0.7-1.3) Estimated GFR (Cockcroft-Gault) 85.5 85.5 Glucose Level 112 mg/dL (70-99) 107 mg/dL (70-99) Calcium Level 8.0 mg/dL (8.5-10.1) 8.1 mg/dL (8.5-10.1) Phosphorus Level 2.7 mg/dL (2.6-4.7) Magnesium Level 2.0 mg/dL (1.8-2.4) Prothrombin Time 17.8 SEC (11.7-14.0) Prothromb Time International Ratio 1.5 (0.8-1.1) BUN/Creatinine Ratio 18 (6-20) Total Bilirubin 2.3 mg/dL (0.2-1.0) Aspartate Amino Transf (AST/SGOT) 64 U/L (15-37) Alanine Aminotransferase (ALT/SGPT) 350 U/L (16-63) Alkaline Phosphatase 87 U/L (46-116) Total Protein 5.8 g/dL (6.4-8.2) Albumin 2.3 g/dL (3.4-5.0) Albumin/Globulin Ratio 0.7 (1.0-1.7) Laboratory Tests Test 10/16/18 13:18 10/17/18 03:30 Prothrombin Time 17.8 SEC (11.7-14.0) Prothromb Time International Ratio 1.5 (0.8-1.1) White Blood Count 10.7 x10^3/uL (4.0-11.0) Red Blood Count 4.30 x10^6/uL (4.30-5.70) Hemoglobin 8.9 g/dL (13.0-17.5) Hematocrit 28.9 % (39.0-53.0) Mean Corpuscular Volume 67 fL (79-100) Mean Corpuscular Hemoglobin 21 pg (25-35) Mean Corpuscular Hemoglobin Concent 31 g/dL (31-37) Red Cell Distribution Width 29.8 % (11.5-14.5) Platelet Count 95 x10^3/uL (140-400) Neutrophils (%) (Auto) 67 % (31-73) Lymphocytes (%) (Auto) 13 % (24-48) Monocytes (%) (Auto) 17 % (0-9) Eosinophils (%) (Auto) 2 % (0-3) Basophils (%) (Auto) 0 % (0-3) Neutrophils # (Auto) 7.1 x10^3uL (1.8-7.7) Lymphocytes # (Auto) 1.4 x10^3/uL (1.0-4.8) Monocytes # (Auto) 1.8 x10^3/uL (0.0-1.1) Eosinophils # (Auto) 0.2 x10^3/uL (0.0-0.7) Basophils # (Auto) 0.0 x10^3/uL (0.0-0.2) Sodium Level 136 mmol/L (136-145) Potassium Level 3.7 mmol/L (3.5-5.1) Chloride Level 104 mmol/L (98-107) Carbon Dioxide Level 21 mmol/L (21-32) Anion Gap 11 (6-14) Blood Urea Nitrogen 16 mg/dL (8-26) Creatinine 0.9 mg/dL (0.7-1.3) Estimated GFR (Cockcroft-Gault) 85.5 BUN/Creatinine Ratio 18 (6-20) Glucose Level 107 mg/dL (70-99) Calcium Level 8.1 mg/dL (8.5-10.1) Total Bilirubin 2.3 mg/dL (0.2-1.0) Aspartate Amino Transf (AST/SGOT) 64 U/L (15-37) Alanine Aminotransferase (ALT/SGPT) 350 U/L (16-63) Alkaline Phosphatase 87 U/L (46-116) Total Protein 5.8 g/dL (6.4-8.2) Albumin 2.3 g/dL (3.4-5.0) Albumin/Globulin Ratio 0.7 (1.0-1.7) Problem List Problems Medical Problems: (1) Lactic acidosis Status: Acute (2) Liver failure Status: Acute (3) Pneumonia Status: Acute (4) Renal failure Status: Acute Assessment/Plan abd pain, resolved ADAT per GI OK to work towards d/c no surgical plans. MARJ GUTIERREZ MD October 17, 2018 08:09
[2018-10-17] MEDS: PANTOPRAZOLE IV PUSH 40 MG VIAL. IVP SCH (08:35)
--- NOTE | 2018-10-17 09:37 | PDOC ---
PULMONARY PROGRESS NOTES Subjective PT FEELS BETTER LESS SOA Vitals Vital Signs Date Time Temp Pulse Resp B/P (MAP) Pulse Ox O2 Delivery O2 Flow Rate FiO2 10/17/18 07:26 98.0 82 17 143/80 (101) 95 Room Air 98.0 ROS: No Nausea, No Chest Pain, No Abdominal Pain, No Increase Cough General: Alert Lungs: Clear, Wheezing (slight), Other (decrease bs) Cardiovascular: S1 Abdomen: Soft Neuro Exam: Alert Extremities: No Edema Skin: Warm Labs Laboratory Tests Test 10/16/18 06:20 10/16/18 13:18 10/17/18 03:30 White Blood Count 11.3 x10^3/uL (4.0-11.0) 10.7 x10^3/uL (4.0-11.0) Red Blood Count 4.14 x10^6/uL (4.30-5.70) 4.30 x10^6/uL (4.30-5.70) Hemoglobin 8.5 g/dL (13.0-17.5) 8.9 g/dL (13.0-17.5) Hematocrit 27.7 % (39.0-53.0) 28.9 % (39.0-53.0) Mean Corpuscular Volume 67 fL (79-100) 67 fL (79-100) Mean Corpuscular Hemoglobin 21 pg (25-35) 21 pg (25-35) Mean Corpuscular Hemoglobin Concent 31 g/dL (31-37) 31 g/dL (31-37) Red Cell Distribution Width 28.9 % (11.5-14.5) 29.8 % (11.5-14.5) Platelet Count 84 x10^3/uL (140-400) 95 x10^3/uL (140-400) Neutrophils (%) (Auto) 68 % (31-73) 67 % (31-73) Lymphocytes (%) (Auto) 11 % (24-48) 13 % (24-48) Monocytes (%) (Auto) 19 % (0-9) 17 % (0-9) Eosinophils (%) (Auto) 1 % (0-3) 2 % (0-3) Basophils (%) (Auto) 0 % (0-3) 0 % (0-3) Neutrophils # (Auto) 7.7 x10^3uL (1.8-7.7) 7.1 x10^3uL (1.8-7.7) Lymphocytes # (Auto) 1.3 x10^3/uL (1.0-4.8) 1.4 x10^3/uL (1.0-4.8) Monocytes # (Auto) 2.1 x10^3/uL (0.0-1.1) 1.8 x10^3/uL (0.0-1.1) Eosinophils # (Auto) 0.1 x10^3/uL (0.0-0.7) 0.2 x10^3/uL (0.0-0.7) Basophils # (Auto) 0.0 x10^3/uL (0.0-0.2) 0.0 x10^3/uL (0.0-0.2) Sodium Level 136 mmol/L (136-145) 136 mmol/L (136-145) Potassium Level 3.7 mmol/L (3.5-5.1) 3.7 mmol/L (3.5-5.1) Chloride Level 104 mmol/L (98-107) 104 mmol/L (98-107) Carbon Dioxide Level 22 mmol/L (21-32) 21 mmol/L (21-32) Anion Gap 10 (6-14) 11 (6-14) Blood Urea Nitrogen 17 mg/dL (8-26) 16 mg/dL (8-26) Creatinine 0.9 mg/dL (0.7-1.3) 0.9 mg/dL (0.7-1.3) Estimated GFR (Cockcroft-Gault) 85.5 85.5 Glucose Level 112 mg/dL (70-99) 107 mg/dL (70-99) Calcium Level 8.0 mg/dL (8.5-10.1) 8.1 mg/dL (8.5-10.1) Phosphorus Level 2.7 mg/dL (2.6-4.7) Magnesium Level 2.0 mg/dL (1.8-2.4) Prothrombin Time 17.8 SEC (11.7-14.0) Prothromb Time International Ratio 1.5 (0.8-1.1) BUN/Creatinine Ratio 18 (6-20) Total Bilirubin 2.3 mg/dL (0.2-1.0) Aspartate Amino Transf (AST/SGOT) 64 U/L (15-37) Alanine Aminotransferase (ALT/SGPT) 350 U/L (16-63) Alkaline Phosphatase 87 U/L (46-116) Total Protein 5.8 g/dL (6.4-8.2) Albumin 2.3 g/dL (3.4-5.0) Albumin/Globulin Ratio 0.7 (1.0-1.7) Laboratory Tests Test 10/16/18 13:18 10/17/18 03:30 Prothrombin Time 17.8 SEC (11.7-14.0) Prothromb Time International Ratio 1.5 (0.8-1.1) White Blood Count 10.7 x10^3/uL (4.0-11.0) Red Blood Count 4.30 x10^6/uL (4.30-5.70) Hemoglobin 8.9 g/dL (13.0-17.5) Hematocrit 28.9 % (39.0-53.0) Mean Corpuscular Volume 67 fL (79-100) Mean Corpuscular Hemoglobin 21 pg (25-35) Mean Corpuscular Hemoglobin Concent 31 g/dL (31-37) Red Cell Distribution Width 29.8 % (11.5-14.5) Platelet Count 95 x10^3/uL (140-400) Neutrophils (%) (Auto) 67 % (31-73) Lymphocytes (%) (Auto) 13 % (24-48) Monocytes (%) (Auto) 17 % (0-9) Eosinophils (%) (Auto) 2 % (0-3) Basophils (%) (Auto) 0 % (0-3) Neutrophils # (Auto) 7.1 x10^3uL (1.8-7.7) Lymphocytes # (Auto) 1.4 x10^3/uL (1.0-4.8) Monocytes # (Auto) 1.8 x10^3/uL (0.0-1.1) Eosinophils # (Auto) 0.2 x10^3/uL (0.0-0.7) Basophils # (Auto) 0.0 x10^3/uL (0.0-0.2) Sodium Level 136 mmol/L (136-145) Potassium Level 3.7 mmol/L (3.5-5.1) Chloride Level 104 mmol/L (98-107) Carbon Dioxide Level 21 mmol/L (21-32) Anion Gap 11 (6-14) Blood Urea Nitrogen 16 mg/dL (8-26) Creatinine 0.9 mg/dL (0.7-1.3) Estimated GFR (Cockcroft-Gault) 85.5 BUN/Creatinine Ratio 18 (6-20) Glucose Level 107 mg/dL (70-99) Calcium Level 8.1 mg/dL (8.5-10.1) Total Bilirubin 2.3 mg/dL (0.2-1.0) Aspartate Amino Transf (AST/SGOT) 64 U/L (15-37) Alanine Aminotransferase (ALT/SGPT) 350 U/L (16-63) Alkaline Phosphatase 87 U/L (46-116) Total Protein 5.8 g/dL (6.4-8.2) Albumin 2.3 g/dL (3.4-5.0) Albumin/Globulin Ratio 0.7 (1.0-1.7) Medications Active Scripts Medications Dose Route/Sig Max Daily Dose Days Date Category Lactulose 20 Gm/30 Ml Solution 20 Gm PO PRN TID PRN 10/07/18 Rx Tums (Calcium Carbonate) 300 Mg Tab.chew 300 Mg PO TIDAC PRN 10/06/18 Reported Cyclobenzaprine Hcl 10 Mg Tablet 1 Tab PO QHS 10/06/18 Reported Gabapentin (Gabapentin) 300 Mg Capsule 300 Mg PO TID 10/06/18 Reported Klor-Con M20 (Potassium Chloride) 20 Meq Tab.er.prt 40 Meq PO DAILY 09/13/18 Rx [Pantoprazole] 40 MG Tablet.dr 40 Mg PO DAILYAC 09/13/18 Rx Hydroxyzine Pamoate 25 Mg Capsule 25 Mg PO PRN Q8HRS PRN 09/13/18 Rx Aspirin Ec (Aspirin) 81 Mg Tablet.dr 81 Mg PO [id number] 09/13/18 Rx [Diltiazem Hcl] 240 MG Cap.er.24h 240 Mg PO DAILY 09/13/18 Rx Metoprolol Tartrate 25 Mg Tablet 25 Mg PO BID 30 4/6/19 Rx Vitamin B-1 (Thiamine Mononitrate) 100 Mg Tablet 100 Mg PO DAILY 02/07/17 Rx Hydrocodone-Apap 7.5-325 (Hydrocodone Bit/Acetaminophen) 1 Each Tablet 1 Tab PO PRN Q3HRS PRN 02/07/17 Rx Folic Acid 1 Mg Tablet 1 Mg PO DAILY 02/07/17 Rx Impression . 1. Acute hypoxic respiratory failure with multisystem organ involvement. The etiology of respiratory failure secondary to sepsis and acute liver failure. 2. Significantly abnormal liver function tests related to acute hepatic failure in a patient who has hepatitis C. 3. Acute blood loss anemia secondary to gastrointestinal bleed. 4. Coagulopathy with high INR of 5.2 related to liver disease and sepsis. 5. Thrombocytopenia. 6. Abnormal chest x-ray consistent with pneumonia. 7. Recently abnormal echo with fogl-oi-[id number] mitral regurgitation and ejection fraction of 50%. 8. Severe metabolic acidosis secondary to lactic acidosis resulting from sepsis along with underlying liver failure. 9. Possible underlying COPD/tobaccoism. 10. Hyperkalemia. 11. NATHANIEL 12. ABDOMINAL PAIN CT 10/14 IMPRESSION: 1. Persistent mural thickening involving the cecum raising the possibility of neoplasm versus nonspecific colitis. 2. A small amount of free fluid has developed in the abdomen and pelvis. 3. Mild generalized mesenteric edema. 4. Increasing small right pleural effusion and new small left pleural effusion with mild bibasilar atelectasis. 5. Cholelithiasis. Plan . RESP STATUS COMPENSATED PT OT IMPROVING OFF 02 IS ANTIBX PER ID FOLLOW GI RECOMMENDATION 02 NEEDED PARESH FONSECA MD October 17, 2018 09:37
--- NOTE | 2018-10-17 09:37 | PDOC ---
PROGRESS NOTES Assessment Problems Medical Problems: (1) Lactic acidosis Status: Acute (2) Liver failure Status: Acute (3) Pneumonia Status: Acute (4) Renal failure Status: Acute Metabolic encephalopathy in patient with respiratory failure, sepsis, acute liver failure with transaminitis and coagulopathy, gastrointestinal bleed, thrombocytopenia, pneumonia, metabolic acidosis secondary to lactic acidosis, hyperkalemia. He remains much better Plan Will follow at intervals No additional neurological studies needed especially given marked improvement. Objective Vital Signs Date Time Temp Pulse Resp B/P (MAP) Pulse Ox O2 Delivery O2 Flow Rate FiO2 10/17/18 07:26 98.0 82 17 143/80 (101) 95 Room Air 98.0 Intake and Output 10/17/18 07:00 Intake Total 1450 ml Output Total 1125 ml Balance 325 ml IV Total 1450 ml Output Urine Total 1125 ml # Bowel Movements 2 PHYSICAL EXAM Alert. Oriented to time, place and person. Speech is dysarthric, this is his normal speech according to the brother SUSAN. EOMI. CN: no focal findings. Muscle tone: normal. Muscle strength: 4/5 DTR: 1+ Plantar reflex: flexor Gait: not examined in bed. Sensory exam: no abnormal findings. No cerebellar signs elicited. No asterixis Review of Relevant I have reviewed the following items daysi (where applicable) has been applied. Labs Laboratory Tests Test 10/16/18 06:20 10/16/18 13:18 10/17/18 03:30 White Blood Count 11.3 x10^3/uL (4.0-11.0) 10.7 x10^3/uL (4.0-11.0) Red Blood Count 4.14 x10^6/uL (4.30-5.70) 4.30 x10^6/uL (4.30-5.70) Hemoglobin 8.5 g/dL (13.0-17.5) 8.9 g/dL (13.0-17.5) Hematocrit 27.7 % (39.0-53.0) 28.9 % (39.0-53.0) Mean Corpuscular Volume 67 fL (79-100) 67 fL (79-100) Mean Corpuscular Hemoglobin 21 pg (25-35) 21 pg (25-35) Mean Corpuscular Hemoglobin Concent 31 g/dL (31-37) 31 g/dL (31-37) Red Cell Distribution Width 28.9 % (11.5-14.5) 29.8 % (11.5-14.5) Platelet Count 84 x10^3/uL (140-400) 95 x10^3/uL (140-400) Neutrophils (%) (Auto) 68 % (31-73) 67 % (31-73) Lymphocytes (%) (Auto) 11 % (24-48) 13 % (24-48) Monocytes (%) (Auto) 19 % (0-9) 17 % (0-9) Eosinophils (%) (Auto) 1 % (0-3) 2 % (0-3) Basophils (%) (Auto) 0 % (0-3) 0 % (0-3) Neutrophils # (Auto) 7.7 x10^3uL (1.8-7.7) 7.1 x10^3uL (1.8-7.7) Lymphocytes # (Auto) 1.3 x10^3/uL (1.0-4.8) 1.4 x10^3/uL (1.0-4.8) Monocytes # (Auto) 2.1 x10^3/uL (0.0-1.1) 1.8 x10^3/uL (0.0-1.1) Eosinophils # (Auto) 0.1 x10^3/uL (0.0-0.7) 0.2 x10^3/uL (0.0-0.7) Basophils # (Auto) 0.0 x10^3/uL (0.0-0.2) 0.0 x10^3/uL (0.0-0.2) Sodium Level 136 mmol/L (136-145) 136 mmol/L (136-145) Potassium Level 3.7 mmol/L (3.5-5.1) 3.7 mmol/L (3.5-5.1) Chloride Level 104 mmol/L (98-107) 104 mmol/L (98-107) Carbon Dioxide Level 22 mmol/L (21-32) 21 mmol/L (21-32) Anion Gap 10 (6-14) 11 (6-14) Blood Urea Nitrogen 17 mg/dL (8-26) 16 mg/dL (8-26) Creatinine 0.9 mg/dL (0.7-1.3) 0.9 mg/dL (0.7-1.3) Estimated GFR (Cockcroft-Gault) 85.5 85.5 Glucose Level 112 mg/dL (70-99) 107 mg/dL (70-99) Calcium Level 8.0 mg/dL (8.5-10.1) 8.1 mg/dL (8.5-10.1) Phosphorus Level 2.7 mg/dL (2.6-4.7) Magnesium Level 2.0 mg/dL (1.8-2.4) Prothrombin Time 17.8 SEC (11.7-14.0) Prothromb Time International Ratio 1.5 (0.8-1.1) BUN/Creatinine Ratio 18 (6-20) Total Bilirubin 2.3 mg/dL (0.2-1.0) Aspartate Amino Transf (AST/SGOT) 64 U/L (15-37) Alanine Aminotransferase (ALT/SGPT) 350 U/L (16-63) Alkaline Phosphatase 87 U/L (46-116) Total Protein 5.8 g/dL (6.4-8.2) Albumin 2.3 g/dL (3.4-5.0) Albumin/Globulin Ratio 0.7 (1.0-1.7) Laboratory Tests Test 10/16/18 13:18 10/17/18 03:30 Prothrombin Time 17.8 SEC (11.7-14.0) Prothromb Time International Ratio 1.5 (0.8-1.1) White Blood Count 10.7 x10^3/uL (4.0-11.0) Red Blood Count 4.30 x10^6/uL (4.30-5.70) Hemoglobin 8.9 g/dL (13.0-17.5) Hematocrit 28.9 % (39.0-53.0) Mean Corpuscular Volume 67 fL (79-100) Mean Corpuscular Hemoglobin 21 pg (25-35) Mean Corpuscular Hemoglobin Concent 31 g/dL (31-37) Red Cell Distribution Width 29.8 % (11.5-14.5) Platelet Count 95 x10^3/uL (140-400) Neutrophils (%) (Auto) 67 % (31-73) Lymphocytes (%) (Auto) 13 % (24-48) Monocytes (%) (Auto) 17 % (0-9) Eosinophils (%) (Auto) 2 % (0-3) Basophils (%) (Auto) 0 % (0-3) Neutrophils # (Auto) 7.1 x10^3uL (1.8-7.7) Lymphocytes # (Auto) 1.4 x10^3/uL (1.0-4.8) Monocytes # (Auto) 1.8 x10^3/uL (0.0-1.1) Eosinophils # (Auto) 0.2 x10^3/uL (0.0-0.7) Basophils # (Auto) 0.0 x10^3/uL (0.0-0.2) Sodium Level 136 mmol/L (136-145) Potassium Level 3.7 mmol/L (3.5-5.1) Chloride Level 104 mmol/L (98-107) Carbon Dioxide Level 21 mmol/L (21-32) Anion Gap 11 (6-14) Blood Urea Nitrogen 16 mg/dL (8-26) Creatinine 0.9 mg/dL (0.7-1.3) Estimated GFR (Cockcroft-Gault) 85.5 BUN/Creatinine Ratio 18 (6-20) Glucose Level 107 mg/dL (70-99) Calcium Level 8.1 mg/dL (8.5-10.1) Total Bilirubin 2.3 mg/dL (0.2-1.0) Aspartate Amino Transf (AST/SGOT) 64 U/L (15-37) Alanine Aminotransferase (ALT/SGPT) 350 U/L (16-63) Alkaline Phosphatase 87 U/L (46-116) Total Protein 5.8 g/dL (6.4-8.2) Albumin 2.3 g/dL (3.4-5.0) Albumin/Globulin Ratio 0.7 (1.0-1.7) Microbiology 10/10/18 Blood Culture - Final, Complete NO GROWTH AFTER 5 DAYS 10/12/18 Stool Culture - Final, Complete 10/12/18 Stool Culture Result 1 (JABIER) - Final, Complete 10/12/18 Campylobacter Antigen Assay - Final, Complete 10/12/18 Campylobactor Result 1 - Final, Complete 10/12/18 Shiga Toxin Test - Final, Complete Medications Current Medications Sodium Chloride 1,000 ml @ 1,000 mls/hr 1X ONCE IV Last administered on 10/10/18at 22:43; Start 10/10/18 at 22:00; Stop 10/10/18 at 22:59; Status DC Sodium Chloride 1,000 ml @ 1,000 mls/hr 1X ONCE IV Last administered on 10/10/18at 22:42; Start 10/10/18 at 22:00; Stop 10/10/18 at 22:59; Status DC Piperacillin Sod/ Tazobactam Sod (Zosyn Per Pharmacy) 1 each PRN DAILY PRN MC SEE COMMENTS; Start 10/10/18 at 22:00; Stop 10/10/18 at 22:33; Status DC Piperacillin Sod/ Tazobactam Sod 3.375 gm/Sodium Chloride 50 ml @ 100 mls/hr 1X ONCE IV Last administered on 10/10/18at 22:44; Start 10/10/18 at 22:15; Stop 10/10/18 at 22:44; Status DC Sodium Bicarbonate (Sodium Bicarb Adult 8.4% Syr) 50 meq 1X ONCE IV Last administered on 10/10/18at 22:43; Start 10/10/18 at 22:30; Stop 10/10/18 at 22:31; Status DC Calcium Gluconate (Calcium Gluconate) 1,000 mg 1X ONCE IVP Last administered on 10/10/18at 22:43; Start 10/10/18 at 22:30; Stop 10/10/18 at 22:31; Status DC Piperacillin Sod/ Tazobactam Sod (Zosyn Per Pharmacy) 1 each PRN DAILY PRN MC SEE COMMENTS; Start 10/10/18 at 22:45; Stop 10/14/18 at 08:32; Status DC Pantoprazole Sodium 80 mg/ Sodium Chloride 100 ml @ 10 mls/hr Q10H IV Last administered on 10/12/18at 08:31; Start 10/10/18 at 23:30; Stop 10/12/18 at 14:57; Status DC Phytonadione 10 mg/Dextrose 51 ml @ 102 mls/hr 1X ONCE IV Last administered on 10/10/18at 23:46; Start 10/10/18 at 23:30; Stop 10/10/18 at 23:59; Status DC Octreotide Acetate 500 mcg/ Sodium Chloride 101 ml @ 0 mls/hr CONT PRN IV SEE I/O RECORD Last administered on 10/12/18at 08:32; Start 10/10/18 at 23:45; Stop 10/12/18 at 14:57; Status DC Sodium Bicarbonate 50 meq/Dextrose 1,050 ml @ 125 mls/hr 1X ONCE IV Last admi nistered on 10/11/18at 00:01; Start 10/10/18 at 23:55; Stop 10/11/18 at 08:18; Status DC Piperacillin Sod/ Tazobactam Sod 2.25 gm/Sodium Chloride 50 ml @ 100 mls/hr Q6HRS IV Last administered on 10/11/18at 05:30; Start 10/11/18 at 06:00; Stop 10/11/18 at 08:25; Status DC Meropenem 500 mg/ Sodium Chloride 50 ml @ 100 mls/hr Q8HRS IV ; Start 10/11/18 at 14:00; Stop 10/11/18 at 14:00; Status DC Ondansetron HCl (Zofran) 4 mg 1X ONCE IV Last administered on 10/11/18at 06:41; Start 10/11/18 at 06:45; Stop 10/11/18 at 06:46; Status DC Thiamine HCl 100 mg/Dextrose 51 ml @ 102 mls/hr 1X ONCE IV Last administered on 10/11/18at 07:40; Start 10/11/18 at 07:00; Stop 10/11/18 at 07:29; Status DC Folic Acid (Folic Acid) 1 mg DAILY PO ; Start 10/11/18 at 09:00; Stop 10/12/18 at 09:03; Status DC Levofloxacin/ Dextrose 50 ml @ 50 mls/hr 1X ONCE IV Last administered on 10/11/18at 07:42; Start 10/11/18 at 07:00; Stop 10/11/18 at 07:59; Status DC Albuterol Sulfate (Ventolin Neb Soln) 2.5 mg PRN Q4HRS PRN NEB SHORTNESS OF BREATH Last administered on 10/14/18at 03:05; Start 10/11/18 at 07:15 Lorazepam (Ativan) 1 mg 1X ONCE IV Last administered on 10/11/18at 07:37; Start 10/11/18 at 07:30; Stop 10/11/18 at 09:35; Status DC Lorazepam (Ativan) 1 mg PRN Q3HRS PRN IV ANXIETY / AGITATION; Start 10/11/18 at 08:00; Stop 10/11/18 at 09:35; Status DC Piperacillin Sod/ Tazobactam Sod 2.25 gm/Sodium Chloride 50 ml @ 100 mls/hr Q 8HRS IV Last administered on 10/13/18at 05:34; Start 10/11/18 at 14:00; Stop 10/13/18 at 08:15; Status DC Ondansetron HCl (Zofran) 4 mg PRN Q6HRS PRN IV NAUSEA/VOMITING; Start 10/11/18 at 08:45 Lactulose (Lactulose) 30 gm TID PO ; Start 10/11/18 at 09:30; Stop 10/11/18 at 11:25; Status DC Sodium Bicarbonate 50 meq/Dextrose 1,050 ml @ 60 mls/hr [id number] IV Last administered on 10/12/18at 02:21; Start 10/11/18 at 10:00; Stop 10/12/18 at 10:58; Status DC Dexmedetomidine HCl 200 mcg/ Sodium Chloride 50 ml @ 0 mls/hr CONT PRN IV PER PROTOCOL Last administered on 10/13/18at 07:33; Start 10/11/18 at 09:45; Stop 10/16/18 at 09:56; Status DC Sodium Chloride 500 ml @ 500 mls/hr 1X PRN PRN IV SEE COMMENTS; Start 10/11/18 at 09:45 Atropine Sulfate (ATROPINE 0.5mg SYRINGE) 0.5 mg PRN Q5MIN PRN IV SEE COMMENTS; Start 10/11/18 at 09:45 Sodium Bicarbonate (Sodium Bicarb Adult 8.4% Syr) 50 meq STK-MED ONCE .ROUTE ; Start 10/11/18 at 09:42; Stop 10/11/18 at 09:43; Status DC Sodium Bicarbonate (Sodium Bicarb Adult 8.4% Syr) 100 meq 1X ONCE IV Last administered on 10/11/18at 10:00; Start 10/11/18 at 10:00; Stop 10/11/18 at 10:01; Status DC Lactulose (Lactulose) 30 gm TID UT ; Start 10/11/18 at 12:00; Stop 10/11/18 at 13:06; Status DC Lidocaine/Sodium Bicarbonate (Buffered Lidocaine 1%) 3 ml STK-MED ONCE .ROUTE ; Start 10/11/18 at 12:34; Stop 10/11/18 at 12:35; Status DC Heparin Sodium (Porcine) (Heparin Sodium) 10,000 unit STK-MED ONCE .ROUTE ; Start 10/11/18 at 12:34; Stop 10/11/18 at 12:35; Status DC Lactulose (Lactulose) 200 gm TID UT Last administered on 10/11/18at 20:55; Start 10/11/18 at 14:00; Stop 10/12/18 at 09:22; Status DC Sodium Chloride 1,000 ml @ 1,000 mls/hr Q1H PRN IV hypotension; Start 10/11/18 at 13:06; Stop 10/11/18 at 19:05; Status DC Albumin Human 200 ml @ 200 mls/hr 1X PRN PRN IV Hypotension; Start 10/11/18 at 13:15; Stop 10/11/18 at 19:14; Status DC Sodium Chloride (Normal Saline Flush) 10 ml 1X PRN PRN IV AP catheter pack; Start 10/11/18 at 13:15; Stop 10/12/18 at 13:14; Status DC Sodium Chloride (Normal Saline Flush) 10 ml 1X PRN PRN IV RECORD CENTER COORDINATOR catheter pack; Start 10/11/18 at 13:15; Stop 10/12/18 at 13:14; Status DC Sodium Chloride 1,000 ml @ 400 mls/hr Q2H30M PRN IV PATENCY; Start 10/11/18 at 13:06; Stop 10/12/18 at 01:05; Status DC Info (PHARMACY MONITORING -- do not chart) 1 each PRN DAILY PRN MC SEE COMMENTS; Start 10/11/18 at 13:15; Status UNV Info (PHARMACY MONITORING -- do not chart) 1 each PRN DAILY PRN MC SEE COMMENTS; Start 10/11/18 at 13:15; Stop 10/15/18 at 13:41; Status DC Lidocaine/Sodium Bicarbonate (Buffered Lidocaine 1%) 6 ml 1X ONCE INJ Last administered on 10/11/18at 13:42; Start 10/11/18 at 13:45; Stop 10/11/18 at 13:46; Status DC Potassium Chloride/Water 50 ml @ 50 mls/hr 1X ONCE IV Last administered on 10/12/18at 09:30; Start 10/12/18 at 09:00; Stop 10/12/18 at 09:59; Status DC Lactulose (Lactulose) 200 gm PRN TID PRN UT CONFUSION Last administered on 10/12/18at 11:37; Start 10/12/18 at 09:30 Amino Acids/ Glycerin/ Electrolytes 1,000 ml @ 60 mls/hr [id number] IV Last administered on 10/17/18at 05:45; Start 10/12/18 at 10:00 Amino Acids/ Glycerin/ Electrolytes 1,000 ml @ As Directed STK-MED ONCE IV ; Start 10/12/18 at 09:58; Stop 10/12/18 at 09:59; Status DC Pantoprazole Sodium (PROTONIX VIAL for IV PUSH) 40 mg BID IVP Last administered on 10/17/18at 08:35; Start 10/12/18 at 21:00 Albumin Human 50 ml @ 50 mls/hr 1X ONCE IV Last administered on 10/12/18at 18:04; Start 10/12/18 at 18:00; Stop 10/12/18 at 18:59; Status DC Potassium Chloride/Water 100 ml @ 100 mls/hr Q1H IV Last administered on 10/13/18at 11:33; Start 10/13/18 at 07:00; Stop 10/13/18 at 10:59; Status DC Piperacillin Sod/ Tazobactam Sod 2.25 gm/Sodium Chloride 50 ml @ 100 mls/hr Q 6HRS IV Last administered on 10/14/18at 05:59; Start 10/13/18 at 12:00; Stop 10/14/18 at 08:32; Status DC Potassium Chloride/Water 50 ml @ 50 mls/hr PRN Q1HR PRN IV SEE ORDER COMMENTS; Start 10/13/18 at 10:45 Potassium Chloride/Water 50 ml @ 50 mls/hr PRN Q1HR PRN IV SEE ORDER COMMENTS; Start 10/13/18 at 10:45 Potassium Chloride/Water 50 ml @ 50 mls/hr PRN Q1HR PRN IV SEE ORDER COMMENTS; Start 10/13/18 at 11:00 Metoprolol Tartrate (Lopressor Vial) 2.5 mg Q6HRS IVP Last administered on 10/13/18at 16:51; Start 10/13/18 at 15:00; Stop 10/13/18 at 17:22; Status DC Metoprolol Tartrate (Lopressor Vial) 5 mg Q6HRS IVP Last administered on 10/14at 05:25; Start 10/13/18 at 18:00; Stop 10/14/18 at 08:54; Status DC Digoxin (Lanoxin) 500 mcg 1X ONCE IV Last administered on 10/13/18at 17:37; Start 10/13/18 at 17:30; Stop 10/13/18 at 17:31; Status DC Potassium Chloride/Water 50 ml @ 0 mls/hr Q1H IV Last administered on 10/14/18at 11:50; Start 10/14/18 at 09:00; Stop 10/14/18 at 12:01; Status DC Diltiazem HCl 125 mg/Dextrose 125 ml @ 5 mls/hr CONT PRN IV SEE I/O RECORD Last administered on 10/17/18at 05:45; Start 10/14/18 at 09:00 Diltiazem HCl (Cardizem Iv Push) 10 mg 1X ONCE IVP Last administered on 10/14/18at 09:06; Start 10/14/18 at 09:00; Stop 10/14/18 at 09:01; Status DC Metoprolol Tartrate (Lopressor Vial) 5 mg PRN Q6HRS PRN IVP HYPERTENSION, SEE COMMENTS; Start 10/14/18 at 09:00 Potassium Phosphate 15 mmol/ Sodium Chloride 255 ml @ 127.5 mls/ hr 1X ONCE IV Last administered on 10/14/18at 11:17; Start 10/14/18 at 11:00; Stop 10/14/18 at 12:59; Status DC Fentanyl Citrate (Fentanyl 2ml Vial) 50 mcg PRN Q2HR PRN IV PAIN Last administered on 10/15/18at 08:20; Start 10/14/18 at 13:00 Meropenem 500 mg/ Sodium Chloride 50 ml @ 100 mls/hr Q6HRS IV Last administered on 10/17/18at 05:36; Start 10/15/18 at 08:00 Potassium Chloride/Water 50 ml @ 50 mls/hr Q1H IV Last administered on 10/15/18at 11:01; Start 10/15/18 at 10:30; Stop 10/15/18 at 12:29; Status DC Magnesium Sulfate 50 ml @ 25 mls/hr 1X ONCE IV Last administered on 10/15/18at 12:22; Start 10/15/18 at 10:30; Stop 10/15/18 at 12:29; Status DC Sodium Phosphate 20 mmol/Dextrose 256.6667 ml @ 64.167 m... 1X ONCE IV Last administered on 10/15/18at 11:01; Start 10/15/18 at 10:30; Stop 10/15/18 at 14:29; Status DC Metoprolol Tartrate (Lopressor Vial) 2.5 mg Q6HRS IVP Last administered on 10/17/18at 05:36; Start 10/16/18 at 18:00 Active Scripts Active Lactulose 20 Gm/30 Ml Solution 20 Gm PO PRN TID PRN 30 Days Klor-Con M20 (Potassium Chloride) 20 Meq Tab.er.prt 40 Meq PO DAILY 30 Days [Pantoprazole] 40 MG Tablet. 40 Mg PO DAILYAC 30 Days Hydroxyzine Pamoate 25 Mg Capsule 25 Mg PO PRN Q8HRS PRN 30 Days Aspirin Ec (Aspirin) 81 Mg Tablet.dr 81 Mg PO [id number] 30 Days [Diltiazem Hcl] 240 MG Cap.er.24h 240 Mg PO DAILY 30 Days Metoprolol Tartrate 25 Mg Tablet 25 Mg PO BID 30 Days Vitamin B-1 (Thiamine Mononitrate) 100 Mg Tablet 100 Mg PO DAILY Hydrocodone-Apap 7.5-325 (Hydrocodone Bit/Acetaminophen) 1 Each Tablet 1 Tab PO PRN Q3HRS PRN Folic Acid 1 Mg Tablet 1 Mg PO DAILY Reported Tums (Calcium Carbonate) 300 Mg Tab.chew 300 Mg PO TIDAC PRN Cyclobenzaprine Hcl 10 Mg Tablet 1 Tab PO QHS Gabapentin (Gabapentin) 300 Mg Capsule 300 Mg PO TID Vitals/I & O Vital Sign - Last 24 Hours 10/16/18 10/16/18 10/16/18 10/16/18 11:00 15:00 18:15 19:37 Temp 98.0 98.3 98.1 98.0 98.3 98.1 Pulse 96 90 90 78 Resp 18 18 17 B/P (MAP) 152/77 (102) 152/82 (105) 152/82 149/84 (105) Pulse Ox 98 96 97 O2 Delivery Room Air Room Air Room Air 10/16/18 10/16/18 10/16/18 10/17/18 20:00 23:22 23:25 03:16 Temp 98.1 98.0 98.1 98.0 Pulse 78 90 70 Resp 18 17 B/P (MAP) 149/84 154/85 (108) 147/86 (106) Pulse Ox 97 97 O2 Delivery Room Air Room Air Room Air 10/17/18 10/17/18 05:36 07:26 Temp 98.0 98.0 Pulse 70 82 Resp 17 B/P (MAP) 147/86 143/80 (101) Pulse Ox 95 O2 Delivery Room Air Intake and Output 10/16/18 10/16/18 10/17/18 15:00 23:00 07:00 Intake Total 50 ml 175 ml 1225 ml Output Total 400 ml 150 ml 575 ml Balance -350 ml 25 ml 650 ml JESU MORENO MD October 17, 2018 09:37
[2018-10-17 10:44] VITALS: BP 146/86
--- NOTE | 2018-10-17 10:46 | PDOC ---
[employer] PROGRESS NOTE Chief Complaint Chief Complaint Found down by a neighbor with Transaminaseitis and mental status change (AST 4514, ALT 1550, Lactate 14.9. WBC 14.7, Hb 6.5 with bright red blood per rectum ) Abd pain, abnormal cecum on CT Hep C, shock liver ALLI A Fib Severe metabolic encephalopathy History of Present Illness History of Present Illness Patient seen and examined Patient alert in NAD Discussed with Nurse He states has begun eating, Nurses say he has only had liquids Reports abdominal pain has been improving Reports no pulmonary complaint Vitals Vitals Vital Signs Date Time Temp Pulse Resp B/P (MAP) Pulse Ox O2 Delivery O2 Flow Rate FiO2 10/17/18 07:26 98.0 82 17 143/80 (101) 95 Room Air 98.0 Physical Exam Physical Exam GENERAL: alert awake HENT: PERRL. Oral cavity dry LUNGS: Clear CV: S1 S2 irregular ABD: Soft, tenderness in RLQ improving, no rebound or guarding : Rodriguez out EXT: No gross edema or cyanosis SKIN: No generalized rash SALES INTERN:awake , alert ,nonfocal Nontunneled RIJ/HDC (10/11) clean General: Alert, Oriented X3, Cooperative, No acute distress Heart: Regular rate, Normal S1, Other (irregularly irregular) Lungs: Clear, Wheezing (slight), Other (decrease bs) Abdomen: Soft, No tenderness Extremities: No clubbing, No cyanosis Skin: No rashes, No breakdown Labs LABS Laboratory Tests Test 10/16/18 13:18 10/17/18 03:30 Prothrombin Time 17.8 SEC (11.7-14.0) Prothromb Time International Ratio 1.5 (0.8-1.1) White Blood Count 10.7 x10^3/uL (4.0-11.0) Red Blood Count 4.30 x10^6/uL (4.30-5.70) Hemoglobin 8.9 g/dL (13.0-17.5) Hematocrit 28.9 % (39.0-53.0) Mean Corpuscular Volume 67 fL (79-100) Mean Corpuscular Hemoglobin 21 pg (25-35) Mean Corpuscular Hemoglobin Concent 31 g/dL (31-37) Red Cell Distribution Width 29.8 % (11.5-14.5) Platelet Count 95 x10^3/uL (140-400) Neutrophils (%) (Auto) 67 % (31-73) Lymphocytes (%) (Auto) 13 % (24-48) Monocytes (%) (Auto) 17 % (0-9) Eosinophils (%) (Auto) 2 % (0-3) Basophils (%) (Auto) 0 % (0-3) Neutrophils # (Auto) 7.1 x10^3uL (1.8-7.7) Lymphocytes # (Auto) 1.4 x10^3/uL (1.0-4.8) Monocytes # (Auto) 1.8 x10^3/uL (0.0-1.1) Eosinophils # (Auto) 0.2 x10^3/uL (0.0-0.7) Basophils # (Auto) 0.0 x10^3/uL (0.0-0.2) Sodium Level 136 mmol/L (136-145) Potassium Level 3.7 mmol/L (3.5-5.1) Chloride Level 104 mmol/L (98-107) Carbon Dioxide Level 21 mmol/L (21-32) Anion Gap 11 (6-14) Blood Urea Nitrogen 16 mg/dL (8-26) Creatinine 0.9 mg/dL (0.7-1.3) Estimated GFR (Cockcroft-Gault) 85.5 BUN/Creatinine Ratio 18 (6-20) Glucose Level 107 mg/dL (70-99) Calcium Level 8.1 mg/dL (8.5-10.1) Total Bilirubin 2.3 mg/dL (0.2-1.0) Aspartate Amino Transf (AST/SGOT) 64 U/L (15-37) Alanine Aminotransferase (ALT/SGPT) 350 U/L (16-63) Alkaline Phosphatase 87 U/L (46-116) Total Protein 5.8 g/dL (6.4-8.2) Albumin 2.3 g/dL (3.4-5.0) Albumin/Globulin Ratio 0.7 (1.0-1.7) Review of Systems Review of Systems Patient denies cough Patient denies MENDEZ Assessment and Plan Assessmemt and Plan Problems Medical Problems: (1) Lactic acidosis Status: Acute (2) Liver failure Status: Acute (3) Pneumonia Status: Acute (4) Renal failure Status: Acute Assessment: Metabolic encephalopathy Respiratory failure Alcoholism Shock liver Hypokalemia Hep C Coagulopathy Possible ischemic bowel Plan Hope to change Cardizem drip to PO if okay with cardiology Tele monitoring EtOH withdrawal protocol when necessary IV lopressor PRN. PPN- ProcalAmine IV Antibiotics- meropenem Monitor labs DNR DVT prophylaxis Discharge Dispo: Pending GI, Surgery, Pulm, Neuro, Cardio, ID have followed Comment Review of Relevant I have reviewed the following items daysi (where applicable) has been applied. Labs Laboratory Tests Test 10/16/18 06:20 10/16/18 13:18 10/17/18 03:30 White Blood Count 11.3 x10^3/uL (4.0-11.0) 10.7 x10^3/uL (4.0-11.0) Red Blood Count 4.14 x10^6/uL (4.30-5.70) 4.30 x10^6/uL (4.30-5.70) Hemoglobin 8.5 g/dL (13.0-17.5) 8.9 g/dL (13.0-17.5) Hematocrit 27.7 % (39.0-53.0) 28.9 % (39.0-53.0) Mean Corpuscular Volume 67 fL (79-100) 67 fL (79-100) Mean Corpuscular Hemoglobin 21 pg (25-35) 21 pg (25-35) Mean Corpuscular Hemoglobin Concent 31 g/dL (31-37) 31 g/dL (31-37) Red Cell Distribution Width 28.9 % (11.5-14.5) 29.8 % (11.5-14.5) Platelet Count 84 x10^3/uL (140-400) 95 x10^3/uL (140-400) Neutrophils (%) (Auto) 68 % (31-73) 67 % (31-73) Lymphocytes (%) (Auto) 11 % (24-48) 13 % (24-48) Monocytes (%) (Auto) 19 % (0-9) 17 % (0-9) Eosinophils (%) (Auto) 1 % (0-3) 2 % (0-3) Basophils (%) (Auto) 0 % (0-3) 0 % (0-3) Neutrophils # (Auto) 7.7 x10^3uL (1.8-7.7) 7.1 x10^3uL (1.8-7.7) Lymphocytes # (Auto) 1.3 x10^3/uL (1.0-4.8) 1.4 x10^3/uL (1.0-4.8) Monocytes # (Auto) 2.1 x10^3/uL (0.0-1.1) 1.8 x10^3/uL (0.0-1.1) Eosinophils # (Auto) 0.1 x10^3/uL (0.0-0.7) 0.2 x10^3/uL (0.0-0.7) Basophils # (Auto) 0.0 x10^3/uL (0.0-0.2) 0.0 x10^3/uL (0.0-0.2) Sodium Level 136 mmol/L (136-145) 136 mmol/L (136-145) Potassium Level 3.7 mmol/L (3.5-5.1) 3.7 mmol/L (3.5-5.1) Chloride Level 104 mmol/L (98-107) 104 mmol/L (98-107) Carbon Dioxide Level 22 mmol/L (21-32) 21 mmol/L (21-32) Anion Gap 10 (6-14) 11 (6-14) Blood Urea Nitrogen 17 mg/dL (8-26) 16 mg/dL (8-26) Creatinine 0.9 mg/dL (0.7-1.3) 0.9 mg/dL (0.7-1.3) Estimated GFR (Cockcroft-Gault) 85.5 85.5 Glucose Level 112 mg/dL (70-99) 107 mg/dL (70-99) Calcium Level 8.0 mg/dL (8.5-10.1) 8.1 mg/dL (8.5-10.1) Phosphorus Level 2.7 mg/dL (2.6-4.7) Magnesium Level 2.0 mg/dL (1.8-2.4) Prothrombin Time 17.8 SEC (11.7-14.0) Prothromb Time International Ratio 1.5 (0.8-1.1) BUN/Creatinine Ratio 18 (6-20) Total Bilirubin 2.3 mg/dL (0.2-1.0) Aspartate Amino Transf (AST/SGOT) 64 U/L (15-37) Alanine Aminotransferase (ALT/SGPT) 350 U/L (16-63) Alkaline Phosphatase 87 U/L (46-116) Total Protein 5.8 g/dL (6.4-8.2) Albumin 2.3 g/dL (3.4-5.0) Albumin/Globulin Ratio 0.7 (1.0-1.7) Laboratory Tests Test 10/16/18 13:18 10/17/18 03:30 Prothrombin Time 17.8 SEC (11.7-14.0) Prothromb Time International Ratio 1.5 (0.8-1.1) White Blood Count 10.7 x10^3/uL (4.0-11.0) Red Blood Count 4.30 x10^6/uL (4.30-5.70) Hemoglobin 8.9 g/dL (13.0-17.5) Hematocrit 28.9 % (39.0-53.0) Mean Corpuscular Volume 67 fL (79-100) Mean Corpuscular Hemoglobin 21 pg (25-35) Mean Corpuscular Hemoglobin Concent 31 g/dL (31-37) Red Cell Distribution Width 29.8 % (11.5-14.5) Platelet Count 95 x10^3/uL (140-400) Neutrophils (%) (Auto) 67 % (31-73) Lymphocytes (%) (Auto) 13 % (24-48) Monocytes (%) (Auto) 17 % (0-9) Eosinophils (%) (Auto) 2 % (0-3) Basophils (%) (Auto) 0 % (0-3) Neutrophils # (Auto) 7.1 x10^3uL (1.8-7.7) Lymphocytes # (Auto) 1.4 x10^3/uL (1.0-4.8) Monocytes # (Auto) 1.8 x10^3/uL (0.0-1.1) Eosinophils # (Auto) 0.2 x10^3/uL (0.0-0.7) Basophils # (Auto) 0.0 x10^3/uL (0.0-0.2) Sodium Level 136 mmol/L (136-145) Potassium Level 3.7 mmol/L (3.5-5.1) Chloride Level 104 mmol/L (98-107) Carbon Dioxide Level 21 mmol/L (21-32) Anion Gap 11 (6-14) Blood Urea Nitrogen 16 mg/dL (8-26) Creatinine 0.9 mg/dL (0.7-1.3) Estimated GFR (Cockcroft-Gault) 85.5 BUN/Creatinine Ratio 18 (6-20) Glucose Level 107 mg/dL (70-99) Calcium Level 8.1 mg/dL (8.5-10.1) Total Bilirubin 2.3 mg/dL (0.2-1.0) Aspartate Amino Transf (AST/SGOT) 64 U/L (15-37) Alanine Aminotransferase (ALT/SGPT) 350 U/L (16-63) Alkaline Phosphatase 87 U/L (46-116) Total Protein 5.8 g/dL (6.4-8.2) Albumin 2.3 g/dL (3.4-5.0) Albumin/Globulin Ratio 0.7 (1.0-1.7) Microbiology 10/10/18 Blood Culture - Final, Complete NO GROWTH AFTER 5 DAYS 10/12/18 Stool Culture - Final, Complete 10/12/18 Stool Culture Result 1 (JABIER) - Final, Complete 10/12/18 Campylobacter Antigen Assay - Final, Complete 10/12/18 Campylobactor Result 1 - Final, Complete 10/12/18 Shiga Toxin Test - Final, Complete Medications Current Medications Sodium Chloride 1,000 ml @ 1,000 mls/hr 1X ONCE IV Last administered on 10/10/18at 22:43; Start 10/10/18 at 22:00; Stop 10/10/18 at 22:59; Status DC Sodium Chloride 1,000 ml @ 1,000 mls/hr 1X ONCE IV Last administered on 10/10/18at 22:42; Start 10/10/18 at 22:00; Stop 10/10/18 at 22:59; Status DC Piperacillin Sod/ Tazobactam Sod (Zosyn Per Pharmacy) 1 each PRN DAILY PRN MC SEE COMMENTS; Start 10/10/18 at 22:00; Stop 10/10/18 at 22:33; Status DC Piperacillin Sod/ Tazobactam Sod 3.375 gm/Sodium Chloride 50 ml @ 100 mls/hr 1X ONCE IV Last administered on 10/10/18at 22:44; Start 10/10/18 at 22:15; Stop 10/10/18 at 22:44; Status DC Sodium Bicarbonate (Sodium Bicarb Adult 8.4% Syr) 50 meq 1X ONCE IV Last admin istered on 10/10/18at 22:43; Start 10/10/18 at 22:30; Stop 10/10/18 at 22:31; Status DC Calcium Gluconate (Calcium Gluconate) 1,000 mg 1X ONCE IVP Last administered on 10/10/18at 22:43; Start 10/10/18 at 22:30; Stop 10/10/18 at 22:31; Status DC Piperacillin Sod/ Tazobactam Sod (Zosyn Per Pharmacy) 1 each PRN DAILY PRN MC SEE COMMENTS; Start 10/10/18 at 22:45; Stop 10/14/18 at 08:32; Status DC Pantoprazole Sodium 80 mg/ Sodium Chloride 100 ml @ 10 mls/hr Q10H IV Last administered on 10/12/18at 08:31; Start 10/10/18 at 23:30; Stop 10/12/18 at 14:57; Status DC Phytonadione 10 mg/Dextrose 51 ml @ 102 mls/hr 1X ONCE IV Last administered on 10/10/18at 23:46; Start 10/10/18 at 23:30; Stop 10/10/18 at 23:59; Status DC Octreotide Acetate 500 mcg/ Sodium Chloride 101 ml @ 0 mls/hr CONT PRN IV SEE I/O RECORD Last administered on 10/12/18at 08:32; Start 10/10/18 at 23:45; Stop 10/12/18 at 14:57; Status DC Sodium Bicarbonate 50 meq/Dextrose 1,050 ml @ 125 mls/hr 1X ONCE IV Last administered on 10/11/18at 00:01; Start 10/10/18 at 23:55; Stop 10/11/18 at 08:18; Status DC Piperacillin Sod/ Tazobactam Sod 2.25 gm/Sodium Chloride 50 ml @ 100 mls/hr Q6HRS IV Last administered on 10/11/18at 05:30; Start 10/11/18 at 06:00; Stop 10/11/18 at 08:25; Status DC Meropenem 500 mg/ Sodium Chloride 50 ml @ 100 mls/hr Q8HRS IV ; Start 10/11/18 at 14:00; Stop 10/11/18 at 14:00; Status DC Ondansetron HCl (Zofran) 4 mg 1X ONCE IV Last administered on 10/11/18at 06:41; Start 10/11/18 at 06:45; Stop 10/11/18 at 06:46; Status DC Thiamine HCl 100 mg/Dextrose 51 ml @ 102 mls/hr 1X ONCE IV Last administered on 10/11/18at 07:40; Start 10/11/18 at 07:00; Stop 10/11/18 at 07:29; Status DC Folic Acid (Folic Acid) 1 mg DAILY PO ; Start 10/11/18 at 09:00; Stop 10/12/18 at 09:03; Status DC Levofloxacin/ Dextrose 50 ml @ 50 mls/hr 1X ONCE IV Last administered on 10/11/18at 07:42; Start 10/11/18 at 07:00; Stop 10/11/18 at 07:59; Status DC Albuterol Sulfate (Ventolin Neb Soln) 2.5 mg PRN Q4HRS PRN NEB SHORTNESS OF BREATH Last administered on 10/14/18at 03:05; Start 10/11/18 at 07:15 Lorazepam (Ativan) 1 mg 1X ONCE IV Last administered on 10/11/18at 07:37; Start 10/11/18 at 07:30; Stop 10/11/18 at 09:35; Status DC Lorazepam (Ativan) 1 mg PRN Q3HRS PRN IV ANXIETY / AGITATION; Start 10/11/18 at 08:00; Stop 10/11/18 at 09:35; Status DC Piperacillin Sod/ Tazobactam Sod 2.25 gm/Sodium Chloride 50 ml @ 100 mls/hr Q8HRS IV Last administered on 10/13/18at 05:34; Start 10/11/18 at 14:00; Stop 10/13/18 at 08:15; Status DC Ondansetron HCl (Zofran) 4 mg PRN Q6HRS PRN IV NAUSEA/VOMITING; Start 10/11/18 at 08:45 Lactulose (Lactulose) 30 gm TID PO ; Start 10/11/18 at 09:30; Stop 10/11/18 at 11:25; Status DC Sodium Bicarbonate 50 meq/Dextrose 1,050 ml @ 60 mls/hr [id number] IV Last administered on 10/12/18at 02:21; Start 10/11/18 at 10:00; Stop 10/12/18 at 10:58; Status DC Dexmedetomidine HCl 200 mcg/ Sodium Chloride 50 ml @ 0 mls/hr CONT PRN IV PER PROTOCOL Last administered on 10/13/18at 07:33; Start 10/11/18 at 09:45; Stop 10/16/18 at 09:56; Status DC Sodium Chloride 500 ml @ 500 mls/hr 1X PRN PRN IV SEE COMMENTS; Start 10/11/18 at 09:45 Atropine Sulfate (ATROPINE 0.5mg SYRINGE) 0.5 mg PRN Q5MIN PRN IV SEE COMMENTS; Start 10/11/18 at 09:45 Sodium Bicarbonate (Sodium Bicarb Adult 8.4% Syr) 50 meq STK-MED ONCE .ROUTE ; Start 10/11/18 at 09:42; Stop 10/11/18 at 09:43; Status DC Sodium Bicarbonate (Sodium Bicarb Adult 8.4% Syr) 100 meq 1X ONCE IV Last administered on 10/11/18at 10:00; Start 10/11/18 at 10:00; Stop 10/11/18 at 10:01; Status DC Lactulose (Lactulose) [address] ; Start 10/11/18 at 12:00; Stop 10/11/18 at 13:06; Status DC Lidocaine/Sodium Bicarbonate (Buffered Lidocaine 1%) 3 ml STK-MED ONCE .ROUTE ; Start 10/11/18 at 12:34; Stop 10/11/18 at 12:35; Status DC Heparin Sodium (Porcine) (Heparin Sodium) 10,000 unit STK-MED ONCE .ROUTE ; Start 10/11/18 at 12:34; Stop 10/11/18 at 12:35; Status DC Lactulose (Lactulose) [address] Last administered on 10/11/18at 20:55; Start 10/11/18 at 14:00; Stop 10/12/18 at 09:22; Status DC Sodium Chloride 1,000 ml @ 1,000 mls/hr Q1H PRN IV hypotension; Start 10/11/18 at 13:06; Stop 10/11/18 at 19:05; Status DC Albumin Human 200 ml @ 200 mls/hr 1X PRN PRN IV Hypotension; Start 10/11/18 at 13:15; Stop 10/11/18 at 19:14; Status DC Sodium Chloride (Normal Saline Flush) 10 ml 1X PRN PRN IV AP catheter pack; Start 10/11/18 at 13:15; Stop 10/12/18 at 13:14; Status DC Sodium Chloride (Normal Saline Flush) 10 ml 1X PRN PRN IV CISO catheter pack; Start 10/11/18 at 13:15; Stop 10/12/18 at 13:14; Status DC Sodium Chloride 1,000 ml @ 400 mls/hr Q2H30M PRN IV PATENCY; Start 10/11/18 at 13:06; Stop 10/12/18 at 01:05; Status DC Info (PHARMACY MONITORING -- do not chart) 1 each PRN DAILY PRN MC SEE COMMENTS; Start 10/11/18 at 13:15; Status UNV Info (PHARMACY MONITORING -- do not chart) 1 each PRN DAILY PRN MC SEE COMMENTS; Start 10/11/18 at 13:15; Stop 10/15/18 at 13:41; Status DC Lidocaine/Sodium Bicarbonate (Buffered Lidocaine 1%) 6 ml 1X ONCE INJ Last administered on 10/11/18at 13:42; Start 10/11/18 at 13:45; Stop 10/11/18 at 13:46; Status DC Potassium Chloride/Water 50 ml @ 50 mls/hr 1X ONCE IV Last administered on 10/12/18at 09:30; Start 10/12/18 at 09:00; Stop 10/12/18 at 09:59; Status DC Lactulose (Lactulose) [address] CONFUSION Last administered on 10/12/18at 11:37; Start 10/12/18 at 09:30 Amino Acids/ Glycerin/ Electrolytes 1,000 ml @ 60 mls/hr [id number] IV Last administered on 10/17/18at 05:45; Start 10/12/18 at 10:00 Amino Acids/ Glycerin/ Electrolytes 1,000 ml @ As Directed STK-MED ONCE IV ; Start 10/12/18 at 09:58; Stop 10/12/18 at 09:59; Status DC Pantoprazole Sodium (PROTONIX VIAL for IV PUSH) 40 mg BID IVP Last administered on 10/17/18at 08:35; Start 10/12/18 at 21:00 Albumin Human 50 ml @ 50 mls/hr 1X ONCE IV Last administered on 10/12/18at 18:04; Start 10/12/18 at 18:00; Stop 10/12/18 at 18:59; Status DC Potassium Chloride/Water 100 ml @ 100 mls/hr Q1H IV Last administered on 10/13/18at 11:33; Start 10/13/18 at 07:00; Stop 10/13/18 at 10:59; Status DC Piperacillin Sod/ Tazobactam Sod 2.25 gm/Sodium Chloride 50 ml @ 100 mls/hr Q6HRS IV Last administered on 10/14/18at 05:59; Start 10/13/18 at 12:00; Stop 10/14/18 at 08:32; Status DC Potassium Chloride/Water 50 ml @ 50 mls/hr PRN Q1HR PRN IV SEE ORDER COMMENTS; Start 10/13/18 at 10:45 Potassium Chloride/Water 50 ml @ 50 mls/hr PRN Q1HR PRN IV SEE ORDER COMMENTS; Start 10/13/18 at 10:45 Potassium Chloride/Water 50 ml @ 50 mls/hr PRN Q1HR PRN IV SEE ORDER COMMENTS; Start 10/13/18 at 11:00 Metoprolol Tartrate (Lopressor Vial) 2.5 mg Q6HRS IVP Last administered on 10/13/18at 16:51; Start 10/13/18 at 15:00; Stop 10/13/18 at 17:22; Status DC Metoprolol Tartrate (Lopressor Vial) 5 mg Q6HRS IVP Last administered on 10/14/18at 05:25; Start 10/13/18 at 18:00; Stop 10/14/18 at 08:54; Status DC Digoxin (Lanoxin) 500 mcg 1X ONCE IV Last administered on 10/13/18at 17:37; Start 10/13/18 at 17:30; Stop 10/13/18 at 17:31; Status DC Potassium Chloride/Water 50 ml @ 0 mls/hr Q1H IV Last administered on 10/14/18 11:50; Start 10/14/18 at 09:00; Stop 10/14/18 at 12:01; Status DC Diltiazem HCl 125 mg/Dextrose 125 ml @ 5 mls/hr CONT PRN IV SEE I/O RECORD Last administered on 10/17/18at 05:45; Start 10/14/18 at 09:00 Diltiazem HCl (Cardizem Iv Push) 10 mg 1X ONCE IVP Last administered on 10/14/18 09:06; Start 10/14/18 at 09:00; Stop 10/14/18 at 09:01; Status DC Metoprolol Tartrate (Lopressor Vial) 5 mg PRN Q6HRS PRN IVP HYPERTENSION, SEE COMMENTS; Start 10/14/18 at 09:00 Potassium Phosphate 15 mmol/ Sodium Chloride 255 ml @ 127.5 mls/ hr 1X ONCE IV Last administered on 10/14/18at 11:17; Start 10/14/18 at 11:00; Stop 10/14/18 at 12:59; Status DC Fentanyl Citrate (Fentanyl 2ml Vial) 50 mcg PRN Q2HR PRN IV PAIN Last administered on 10/15/18 08:20; Start 10/14/18 at 13:00 Meropenem 500 mg/ Sodium Chloride 50 ml @ 100 mls/hr Q6HRS IV Last administered on 10/17/18 05:36; Start 10/15/18 at 08:00 Potassium Chloride/Water 50 ml @ 50 mls/hr Q1H IV Last administered on 10/15/18 11:01; Start 10/15/18 at 10:30; Stop 10/15/18 at 12:29; Status DC Magnesium Sulfate 50 ml @ 25 mls/hr 1X ONCE IV Last administered on 10/15/18at 12:22; Start 10/15/18 at 10:30; Stop 10/15/18 at 12:29; Status DC Sodium Phosphate 20 mmol/Dextrose 256.6667 ml @ 64.167 m... 1X ONCE IV Last administered on 10/15/18 11:01; Start 10/15/18 at 10:30; Stop 10/15/18 at 14:29; Status DC Metoprolol Tartrate (Lopressor Vial) 2.5 mg Q6HRS IVP Last administered on 10/17/18at 05:36; Start 10/16/18 at 18:00 Active Scripts Active Lactulose 20 Gm/30 Ml Solution 20 Gm PO PRN TID PRN 30 Days Klor-Con M20 (Potassium Chloride) 20 Meq Tab.er.prt 40 Meq PO DAILY 30 Days [Pantoprazole] 40 MG Tablet.dr 40 Mg PO DAILYAC 30 Days Hydroxyzine Pamoate 25 Mg Capsule 25 Mg PO PRN Q8HRS PRN 30 Days Aspirin Ec (Aspirin) 81 Mg Tablet.dr 81 Mg PO DAILYWBKFT 30 Days [Diltiazem Hcl] 240 MG Cap.er.24h 240 Mg PO DAILY 30 Days Metoprolol Tartrate 25 Mg Tablet 25 Mg PO BID 30 Days Vitamin B-1 (Thiamine Mononitrate) 100 Mg Tablet 100 Mg PO DAILY Hydrocodone-Apap 7.5-325 (Hydrocodone Bit/Acetaminophen) 1 Each Tablet 1 Tab PO PRN Q3HRS PRN Folic Acid 1 Mg Tablet 1 Mg PO DAILY Reported Tums (Calcium Carbonate) 300 Mg Tab.chew 300 Mg PO TIDAC PRN Cyclobenzaprine Hcl 10 Mg Tablet 1 Tab PO QHS Gabapentin (Gabapentin) 300 Mg Capsule 300 Mg PO TID Vitals/I & O Vital Sign - Last 24 Hours 10/16/18 10/16/18 10/16/18 10/16/18 11:00 15:00 18:15 19:37 Temp 98.0 98.3 98.1 98.0 98.3 98.1 Pulse 96 90 90 78 Resp 18 18 17 B/P (MAP) 152/77 (102) 152/82 (105) 152/82 149/84 (105) Pulse Ox 98 96 97 O2 Delivery Room Air Room Air Room Air 10/16/18 10/16/18 10/16/18 10/17/18 20:00 23:22 23:25 03:16 Temp 98.1 98.0 98.1 98.0 Pulse 78 90 70 Resp 18 17 B/P (MAP) 149/84 154/85 (108) 147/86 (106) Pulse Ox 97 97 O2 Delivery Room Air Room Air Room Air 10/17/18 10/17/18 05:36 07:26 Temp 98.0 98.0 Pulse 70 82 Resp 17 B/P (MAP) 147/86 143/80 (101) Pulse Ox 95 O2 Delivery Room Air Intake and Output 10/16/18 10/16/18 10/17/18 15:00 23:00 07:00 Intake Total 50 ml 175 ml 1225 ml Output Total 400 ml 150 ml 575 ml Balance -350 ml 25 ml 650 ml JENNIFER WHITE III DO October 17, 2018 10:46
--- NOTE | 2018-10-17 11:45 | PDOC ---
Subjective: Subjective: Feels fine - says eating and stooling, asks to go home. Objective: Vital Signs: Vital Signs Date Time Temp Pulse Resp B/P (MAP) Pulse Ox O2 Delivery O2 Flow Rate FiO2 10/17/18 10:44 98.6 79 17 146/86 (106) 97 Room Air 98.6 Labs: Laboratory Tests Test 10/16/18 13:18 10/17/18 03:30 Prothrombin Time 17.8 SEC Prothromb Time International Ratio 1.5 White Blood Count 10.7 x10^3/uL Red Blood Count 4.30 x10^6/uL Hemoglobin 8.9 g/dL Hematocrit 28.9 % Mean Corpuscular Volume 67 fL Mean Corpuscular Hemoglobin 21 pg Mean Corpuscular Hemoglobin Concent 31 g/dL Red Cell Distribution Width 29.8 % Platelet Count 95 x10^3/uL Neutrophils (%) (Auto) 67 % Lymphocytes (%) (Auto) 13 % Monocytes (%) (Auto) 17 % Eosinophils (%) (Auto) 2 % Basophils (%) (Auto) 0 % Neutrophils # (Auto) 7.1 x10^3uL Lymphocytes # (Auto) 1.4 x10^3/uL Monocytes # (Auto) 1.8 x10^3/uL Eosinophils # (Auto) 0.2 x10^3/uL Basophils # (Auto) 0.0 x10^3/uL Sodium Level 136 mmol/L Potassium Level 3.7 mmol/L Chloride Level 104 mmol/L Carbon Dioxide Level 21 mmol/L Anion Gap 11 Blood Urea Nitrogen 16 mg/dL Creatinine 0.9 mg/dL Estimated GFR (Cockcroft-Gault) 85.5 BUN/Creatinine Ratio 18 Glucose Level 107 mg/dL Calcium Level 8.1 mg/dL Total Bilirubin 2.3 mg/dL Aspartate Amino Transf (AST/SGOT) 64 U/L Alanine Aminotransferase (ALT/SGPT) 350 U/L Alkaline Phosphatase 87 U/L Total Protein 5.8 g/dL Albumin 2.3 g/dL Albumin/Globulin Ratio 0.7 STOOL CULTURE Final Final report STOOL CULT RES 1 Final Comment No Salmonella or Shigella recovered. CAMPY Final Final report CAMPY RES 1 Final Comment No Campylobacter species isolated. SHIGA TOXIN Final Negative Imaging: CXR 10/16 IMPRESSION: Ongoing predominantly interstitial bilateral pulmonary opacities suggesting interstitial edema superimposed upon fibrosis. PE: GEN: NAD LUNGS: CTAB HEART: RRR ABD: NABS, S/ND/NT NEURO/PSYCH: A & O 3 A/P: Abd pain, abnormal cecum on CT - better Hep C, hepatic steatosis - LFTs improving ALLI - stable -- ADAT, PO PPI. JASIEL WALSH October 17, 2018 11:45
--- NOTE | 2018-10-17 12:51 | PDOC ---
CARDIO Progress Notes Date and Time Date of Service 10/17/2018 Time of Evaluation 1250 Subjective Subjective: No Chest Pain, No shortness of breath, No Palpitations, Other (wants to go home) Vitals Vitals Vital Signs Date Time Temp Pulse Resp B/P (MAP) Pulse Ox O2 Delivery O2 Flow Rate FiO2 10/17/18 12:20 79 146/86 10/17/18 10:44 98.6 17 97 Room Air 98.6 Weight Weight [ ] Input and Output Intake and Output Intake and Output 10/17/18 07:00 Intake Total 1450 ml Output Total 1125 ml Balance 325 ml IV Total 1450 ml Output Urine Total 1125 ml # Bowel Movements 2 Laboratory Labs Laboratory Tests Test 10/16/18 13:18 10/17/18 03:30 Prothrombin Time 17.8 SEC (11.7-14.0) Prothromb Time International Ratio 1.5 (0.8-1.1) White Blood Count 10.7 x10^3/uL (4.0-11.0) Red Blood Count 4.30 x10^6/uL (4.30-5.70) Hemoglobin 8.9 g/dL (13.0-17.5) Hematocrit 28.9 % (39.0-53.0) Mean Corpuscular Volume 67 fL (79-100) Mean Corpuscular Hemoglobin 21 pg (25-35) Mean Corpuscular Hemoglobin Concent 31 g/dL (31-37) Red Cell Distribution Width 29.8 % (11.5-14.5) Platelet Count 95 x10^3/uL (140-400) Neutrophils (%) (Auto) 67 % (31-73) Lymphocytes (%) (Auto) 13 % (24-48) Monocytes (%) (Auto) 17 % (0-9) Eosinophils (%) (Auto) 2 % (0-3) Basophils (%) (Auto) 0 % (0-3) Neutrophils # (Auto) 7.1 x10^3uL (1.8-7.7) Lymphocytes # (Auto) 1.4 x10^3/uL (1.0-4.8) Monocytes # (Auto) 1.8 x10^3/uL (0.0-1.1) Eosinophils # (Auto) 0.2 x10^3/uL (0.0-0.7) Basophils # (Auto) 0.0 x10^3/uL (0.0-0.2) Sodium Level 136 mmol/L (136-145) Potassium Level 3.7 mmol/L (3.5-5.1) Chloride Level 104 mmol/L (98-107) Carbon Dioxide Level 21 mmol/L (21-32) Anion Gap 11 (6-14) Blood Urea Nitrogen 16 mg/dL (8-26) Creatinine 0.9 mg/dL (0.7-1.3) Estimated GFR (Cockcroft-Gault) 85.5 BUN/Creatinine Ratio 18 (6-20) Glucose Level 107 mg/dL (70-99) Calcium Level 8.1 mg/dL (8.5-10.1) Total Bilirubin 2.3 mg/dL (0.2-1.0) Aspartate Amino Transf (AST/SGOT) 64 U/L (15-37) Alanine Aminotransferase (ALT/SGPT) 350 U/L (16-63) Alkaline Phosphatase 87 U/L (46-116) Total Protein 5.8 g/dL (6.4-8.2) Albumin 2.3 g/dL (3.4-5.0) Albumin/Globulin Ratio 0.7 (1.0-1.7) Microbiology Micro Microbiology 10/10/18 Blood Culture - Final, Complete NO GROWTH AFTER 5 DAYS 10/12/18 Stool Culture - Final, Complete 10/12/18 Stool Culture Result 1 (JABIER) - Final, Complete 10/12/18 Campylobacter Antigen Assay - Final, Complete 10/12/18 Campylobactor Result 1 - Final, Complete 10/12/18 Shiga Toxin Test - Final, Complete Review of Systems Constitutional: yes: other (CONFUSED) Physical Exam HEENT: Neck Supple W Full Motion Chest: Symmetric LUNGS: Other (diminished bases) Heart: irregularly irregular (AFIB) Abdomen: Other (soft mkld abd tenderness) Extremities: No Edema, Other (trace bilateral LE pitting edema) Neurology: alert, oriented, follow commands Assessment Assessment 1. Acute respiratory failure: resolved 2. Persistent AFIB: rate controlled 3. Sepsis: ID following 4. GI bleed; s/p 1 unit PRBCs. Hgb 8.8 5. Coagulopathy with past ETOH use and Hep C, cirrhosis. s/p FFP. INR 1.5 GI following 6. Shock liver/Cirrhosis/cholelithiasis with possible colitis: improved 7. Hypertension; Controlled 8. Suspect COPD with continued tobaccoism: moderate pulmonary hypertension 9. NATHANIEL on CKD: resolved 10. Metabolic encephalopathy: resolved 12. Hypokalemia: resolved Recommendations Tolerating PO. DC IV and chnage to PO cardizem and metoprolol. ASA 81 mg for stroke prevention. Follow up in office in 4 weeks. MARY JANE POTTER APRN October 17, 2018 12:51
[2018-10-17] MEDS ORDERED: ASPIRIN ENTERIC COATED 81 MG TABLET.DR. PO SCH (13:00)
[2018-10-17] MEDS ORDERED: CALCIUM CARBONATE 500 MG TAB.CHEW PO PRN (13:00)
[2018-10-17] MEDS: METOPROLOL TART IMMED RELEASE 25 MG TABLET. PO SCH ×2 (13:49→20:35)
[2018-10-17] MEDS: ASPIRIN ENTERIC COATED 81 MG TABLET.DR. PO SCH (14:13)
[2018-10-17 14:43] VITALS: BP 141/83
[2018-10-17 19:35] VITALS: BP 130/77
[2018-10-17] MEDS: LACTOBACILLUS RHAMNOSUS GG 1 CAPSULE. PO SCH (20:35)
[2018-10-17] MEDS: fentaNYL PF VIAL 100 MCG/2 ML VIAL IV PRN (20:36)
[2018-10-17 22:26] VITALS: BP 139/84
[2018-10-18 03:20] VITALS: BP 136/78
[2018-10-18 04:51] LABS: BASO # 0.1 x10^3/uL (0.0-0.2); BASO % 0 % (0-3); EOS # 0.3 x10^3/uL (0.0-0.7); EOS % 2 % (0-3); HEMATOCRIT 28.7 % (39.0-53.0); HEMOGLOBIN 8.7 g/dL (13.0-17.5); LYMPH # 1.7 x10^3/uL (1.0-4.8); LYMPH % 13 % (24-48); MEAN CORPUSCULAR HEMOGLOBIN 21 pg (25-35); MEAN CORPUSCULAR HGB CONC 30 g/dL (31-37); MEAN CORPUSCULAR VOLUME 68 fL (79-100); MONO # 1.6 x10^3/uL (0.0-1.1); MONO % 12 % (0-9); NEUT # 9.7 x10^3uL (1.8-7.7); NEUT % 73 % (31-73); PLATELET COUNT 120 x10^3/uL (140-400); RED BLOOD COUNT 4.22 x10^6/uL (4.30-5.70); RED CELL DISTRIBUTION WIDTH 29.5 % (11.5-14.5); WHITE BLOOD COUNT 13.3 x10^3/uL (4.0-11.0)
[2018-10-18] MEDS: AMINO AC 3%/ELECTROLYTE/GLYCER 1,000 ML IV SCH ×2 (05:04→16:00)
[2018-10-18] MEDS: MEROPENEM 500 MG in IV NORMAL SALINE 50ML 50 ML IV SCH (05:05)
[2018-10-18 05:07] LABS: ALBUMIN 2.4 g/dL (3.4-5.0); ALBUMIN/GLOBULIN RATIO 0.6 (1.0-1.7); CALCIUM 8.1 mg/dL (8.5-10.1); CREATININE 0.8 mg/dL (0.7-1.3); POTASSIUM 3.8 mmol/L (3.5-5.1); TOTAL BILIRUBIN 2.2 mg/dL (0.2-1.0); TOTAL PROTEIN 6.1 g/dL (6.4-8.2)
[2018-10-18] MEDS ORDERED: PANTOPRAZOLE 40 MG TABLET.DR. PO SCH (07:30)
[2018-10-18 07:31] VITALS: BP 149/95
[2018-10-18] MEDS: LACTOBACILLUS RHAMNOSUS GG 1 CAPSULE. PO SCH (08:17)
[2018-10-18] MEDS: ASPIRIN ENTERIC COATED 81 MG TABLET.DR. PO SCH (08:17)
[2018-10-18] MEDS: METOPROLOL TART IMMED RELEASE 25 MG TABLET. PO SCH (08:19)
--- NOTE | 2018-10-18 08:47 | PDOC ---
PROGRESS NOTES Chief Complaint Chief Complaint Found down by a neighbor with Transaminaseitis and mental status change (AST 4514, ALT 1550, Lactate 14.9. WBC 14.7, Hb 6.5 with bright red blood per rectum ) Abd pain, abnormal cecum on CT Hep C, shock liver ALLI A Fib Severe metabolic encephalopathy 44 min pt exam, chart review, > 50% of time spent with exam, chart review, pt care coordination History of Present Illness History of Present Illness Patient seen and examined Patient alert in NAD Discussed with Nurse He states has begun eating, Nurses say he has only had liquids Reports abdominal pain has been improving Reports no pulmonary complaint Vitals Vitals Vital Signs Date Time Temp Pulse Resp B/P (MAP) Pulse Ox O2 Delivery O2 Flow Rate FiO2 10/18/18 08:19 102 149/95 10/18/18 07:31 97.5 18 98 Room Air 97.5 Physical Exam Physical Exam GENERAL: alert awake HENT: PERRL. Oral cavity dry LUNGS: Clear CV: S1 S2 irregular ABD: Soft, tenderness in RLQ improving, no rebound or guarding : Rodriguez out EXT: No gross edema or cyanosis SKIN: No generalized rash CLAY MILLER:awake , alert ,nonfocal Nontunneled RIJ/HDC (10/11) clean General: Alert, Oriented X3, Cooperative, No acute distress Heart: Regular rate, Normal S1, Other (irregularly irregular) Lungs: Clear, Wheezing (slight), Other (decrease bs) Abdomen: Soft, No tenderness Extremities: No clubbing, No cyanosis Skin: No rashes, No breakdown Labs LABS Laboratory Tests Test 10/18/18 04:30 White Blood Count 13.3 x10^3/uL (4.0-11.0) Red Blood Count 4.22 x10^6/uL (4.30-5.70) Hemoglobin 8.7 g/dL (13.0-17.5) Hematocrit 28.7 % (39.0-53.0) Mean Corpuscular Volume 68 fL (79-100) Mean Corpuscular Hemoglobin 21 pg (25-35) Mean Corpuscular Hemoglobin Concent 30 g/dL (31-37) Red Cell Distribution Width 29.5 % (11.5-14.5) Platelet Count 120 x10^3/uL (140-400) Neutrophils (%) (Auto) 73 % (31-73) Lymphocytes (%) (Auto) 13 % (24-48) Monocytes (%) (Auto) 12 % (0-9) Eosinophils (%) (Auto) 2 % (0-3) Basophils (%) (Auto) 0 % (0-3) Neutrophils # (Auto) 9.7 x10^3uL (1.8-7.7) Lymphocytes # (Auto) 1.7 x10^3/uL (1.0-4.8) Monocytes # (Auto) 1.6 x10^3/uL (0.0-1.1) Eosinophils # (Auto) 0.3 x10^3/uL (0.0-0.7) Basophils # (Auto) 0.1 x10^3/uL (0.0-0.2) Sodium Level 132 mmol/L (136-145) Potassium Level 3.8 mmol/L (3.5-5.1) Chloride Level 101 mmol/L (98-107) Carbon Dioxide Level 20 mmol/L (21-32) Anion Gap 11 (6-14) Blood Urea Nitrogen 13 mg/dL (8-26) Creatinine 0.8 mg/dL (0.7-1.3) Estimated GFR (Cockcroft-Gault) 98.0 BUN/Creatinine Ratio 16 (6-20) Glucose Level 88 mg/dL (70-99) Calcium Level 8.1 mg/dL (8.5-10.1) Total Bilirubin 2.2 mg/dL (0.2-1.0) Aspartate Amino Transf (AST/SGOT) 49 U/L (15-37) Alanine Aminotransferase (ALT/SGPT) 270 U/L (16-63) Alkaline Phosphatase 93 U/L (46-116) Total Protein 6.1 g/dL (6.4-8.2) Albumin 2.4 g/dL (3.4-5.0) Albumin/Globulin Ratio 0.6 (1.0-1.7) Assessment and Plan Assessmemt and Plan Problems Medical Problems: (1) Lactic acidosis Status: Acute (2) Liver failure Status: Acute (3) Pneumonia Status: Acute (4) Renal failure Status: Acute Comment Review of Relevant I have reviewed the following items daysi (where applicable) has been applied. Labs Laboratory Tests Test 10/16/18 13:18 10/17/18 03:30 10/18/18 04:30 Prothrombin Time 17.8 SEC (11.7-14.0) Prothromb Time International Ratio 1.5 (0.8-1.1) White Blood Count 10.7 x10^3/uL (4.0-11.0) 13.3 x10^3/uL (4.0-11.0) Red Blood Count 4.30 x10^6/uL (4.30-5.70) 4.22 x10^6/uL (4.30-5.70) Hemoglobin 8.9 g/dL (13.0-17.5) 8.7 g/dL (13.0-17.5) Hematocrit 28.9 % (39.0-53.0) 28.7 % (39.0-53.0) Mean Corpuscular Volume 67 fL (79-100) 68 fL (79-100) Mean Corpuscular Hemoglobin 21 pg (25-35) 21 pg (25-35) Mean Corpuscular Hemoglobin Concent 31 g/dL (31-37) 30 g/dL (31-37) Red Cell Distribution Width 29.8 % (11.5-14.5) 29.5 % (11.5-14.5) Platelet Count 95 x10^3/uL (140-400) 120 x10^3/uL (140-400) Neutrophils (%) (Auto) 67 % (31-73) 73 % (31-73) Lymphocytes (%) (Auto) 13 % (24-48) 13 % (24-48) Monocytes (%) (Auto) 17 % (0-9) 12 % (0-9) Eosinophils (%) (Auto) 2 % (0-3) 2 % (0-3) Basophils (%) (Auto) 0 % (0-3) 0 % (0-3) Neutrophils # (Auto) 7.1 x10^3uL (1.8-7.7) 9.7 x10^3uL (1.8-7.7) Lymphocytes # (Auto) 1.4 x10^3/uL (1.0-4.8) 1.7 x10^3/uL (1.0-4.8) Monocytes # (Auto) 1.8 x10^3/uL (0.0-1.1) 1.6 x10^3/uL (0.0-1.1) Eosinophils # (Auto) 0.2 x10^3/uL (0.0-0.7) 0.3 x10^3/uL (0.0-0.7) Basophils # (Auto) 0.0 x10^3/uL (0.0-0.2) 0.1 x10^3/uL (0.0-0.2) Sodium Level 136 mmol/L (136-145) 132 mmol/L (136-145) Potassium Level 3.7 mmol/L (3.5-5.1) 3.8 mmol/L (3.5-5.1) Chloride Level 104 mmol/L (98-107) 101 mmol/L (98-107) Carbon Dioxide Level 21 mmol/L (21-32) 20 mmol/L (21-32) Anion Gap 11 (6-14) 11 (6-14) Blood Urea Nitrogen 16 mg/dL (8-26) 13 mg/dL (8-26) Creatinine 0.9 mg/dL (0.7-1.3) 0.8 mg/dL (0.7-1.3) Estimated GFR (Cockcroft-Gault) 85.5 98.0 BUN/Creatinine Ratio 18 (6-20) 16 (6-20) Glucose Level 107 mg/dL (70-99) 88 mg/dL (70-99) Calcium Level 8.1 mg/dL (8.5-10.1) 8.1 mg/dL (8.5-10.1) Total Bilirubin 2.3 mg/dL (0.2-1.0) 2.2 mg/dL (0.2-1.0) Aspartate Amino Transf (AST/SGOT) 64 U/L (15-37) 49 U/L (15-37) Alanine Aminotransferase (ALT/SGPT) 350 U/L (16-63) 270 U/L (16-63) Alkaline Phosphatase 87 U/L (46-116) 93 U/L (46-116) Total Protein 5.8 g/dL (6.4-8.2) 6.1 g/dL (6.4-8.2) Albumin 2.3 g/dL (3.4-5.0) 2.4 g/dL (3.4-5.0) Albumin/Globulin Ratio 0.7 (1.0-1.7) 0.6 (1.0-1.7) Laboratory Tests Test 10/18/18 04:30 White Blood Count 13.3 x10^3/uL (4.0-11.0) Red Blood Count 4.22 x10^6/uL (4.30-5.70) Hemoglobin 8.7 g/dL (13.0-17.5) Hematocrit 28.7 % (39.0-53.0) Mean Corpuscular Volume 68 fL (79-100) Mean Corpuscular Hemoglobin 21 pg (25-35) Mean Corpuscular Hemoglobin Concent 30 g/dL (31-37) Red Cell Distribution Width 29.5 % (11.5-14.5) Platelet Count 120 x10^3/uL (140-400) Neutrophils (%) (Auto) 73 % (31-73) Lymphocytes (%) (Auto) 13 % (24-48) Monocytes (%) (Auto) 12 % (0-9) Eosinophils (%) (Auto) 2 % (0-3) Basophils (%) (Auto) 0 % (0-3) Neutrophils # (Auto) 9.7 x10^3uL (1.8-7.7) Lymphocytes # (Auto) 1.7 x10^3/uL (1.0-4.8) Monocytes # (Auto) 1.6 x10^3/uL (0.0-1.1) Eosinophils # (Auto) 0.3 x10^3/uL (0.0-0.7) Basophils # (Auto) 0.1 x10^3/uL (0.0-0.2) Sodium Level 132 mmol/L (136-145) Potassium Level 3.8 mmol/L (3.5-5.1) Chloride Level 101 mmol/L (98-107) Carbon Dioxide Level 20 mmol/L (21-32) Anion Gap 11 (6-14) Blood Urea Nitrogen 13 mg/dL (8-26) Creatinine 0.8 mg/dL (0.7-1.3) Estimated GFR (Cockcroft-Gault) 98.0 BUN/Creatinine Ratio 16 (6-20) Glucose Level 88 mg/dL (70-99) Calcium Level 8.1 mg/dL (8.5-10.1) Total Bilirubin 2.2 mg/dL (0.2-1.0) Aspartate Amino Transf (AST/SGOT) 49 U/L (15-37) Alanine Aminotransferase (ALT/SGPT) 270 U/L (16-63) Alkaline Phosphatase 93 U/L (46-116) Total Protein 6.1 g/dL (6.4-8.2) Albumin 2.4 g/dL (3.4-5.0) Albumin/Globulin Ratio 0.6 (1.0-1.7) Microbiology 10/10/18 Blood Culture - Final, Complete NO GROWTH AFTER 5 DAYS 10/12/18 Stool Culture - Final, Complete 10/12/18 Stool Culture Result 1 (JABIER) - Final, Complete 10/12/18 Campylobacter Antigen Assay - Final, Complete 10/12/18 Campylobactor Result 1 - Final, Complete 10/12/18 Shiga Toxin Test - Final, Complete Medications Current Medications Sodium Chloride 1,000 ml @ 1,000 mls/hr 1X ONCE IV Last administered on 10/10/18at 22:43; Start 10/10/18 at 22:00; Stop 10/10/18 at 22:59; Status DC Sodium Chloride 1,000 ml @ 1,000 mls/hr 1X ONCE IV Last administered on 10/10/18at 22:42; Start 10/10/18 at 22:00; Stop 10/10/18 at 22:59; Status DC Piperacillin Sod/ Tazobactam Sod (Zosyn Per Pharmacy) 1 each PRN DAILY PRN MC SEE COMMENTS; Start 10/10/18 at 22:00; Stop 10/10/18 at 22:33; Status DC Piperacillin Sod/ Tazobactam Sod 3.375 gm/Sodium Chloride 50 ml @ 100 mls/hr 1X ONCE IV Last administered on 10/10/18at 22:44; Start 10/10/18 at 22:15; Stop 10/10/18 at 22:44; Status DC Sodium Bicarbonate (Sodium Bicarb Adult 8.4% Syr) 50 meq 1X ONCE IV Last administered on 10/10/18at 22:43; Start 10/10/18 at 22:30; Stop 10/10/18 at 22:31; Status DC Calcium Gluconate (Calcium Gluconate) 1,000 mg 1X ONCE IVP Last administered on 10/10/18at 22:43; Start 10/10/18 at 22:30; Stop 10/10/18 at 22:31; Status DC Piperacillin Sod/ Tazobactam Sod (Zosyn Per Pharmacy) 1 each PRN DAILY PRN MC SEE COMMENTS; Start 10/10/18 at 22:45; Stop 10/14/18 at 08:32; Status DC Pantoprazole Sodium 80 mg/ Sodium Chloride 100 ml @ 10 mls/hr Q10H IV Last administered on 10/12/18at 08:31; Start 10/10/18 at 23:30; Stop 10/12/18 at 14:57; Status DC Phytonadione 10 mg/Dextrose 51 ml @ 102 mls/hr 1X ONCE IV Last administered on 10/10/18at 23:46; Start 10/10/18 at 23:30; Stop 10/10/18 at 23:59; Status DC Octreotide Acetate 500 mcg/ Sodium Chloride 101 ml @ 0 mls/hr CONT PRN IV SEE I/O RECORD Last administered on 10/12/18at 08:32; Start 10/10/18 at 23:45; Stop 10/12/18 at 14:57; Status DC Sodium Bicarbonate 50 meq/Dextrose 1,050 ml @ 125 mls/hr 1X ONCE IV Last administered on 10/11/18at 00:01; Start 10/10/18 at 23:55; Stop 10/11/18 at 08:18; Status DC Piperacillin Sod/ Tazobactam Sod 2.25 gm/Sodium Chloride 50 ml @ 100 mls/hr Q6HRS IV Last administered on 10/11/18at 05:30; Start 10/11/18 at 06:00; Stop 10/11/18 at 08:25; Status DC Meropenem 500 mg/ Sodium Chloride 50 ml @ 100 mls/hr Q8HRS IV ; Start 10/11/18 at 14:00; Stop 10/11/18 at 14:00; Status DC Ondansetron HCl (Zofran) 4 mg 1X ONCE IV Last administered on 10/11/18at 06:41; Start 10/11/18 at 06:45; Stop 10/11/18 at 06:46; Status DC Thiamine HCl 100 mg/Dextrose 51 ml @ 102 mls/hr 1X ONCE IV Last administered on 10/11/18at 07:40; Start 10/11/18 at 07:00; Stop 10/11/18 at 07:29; Status DC Folic Acid (Folic Acid) 1 mg DAILY PO ; Start 10/11/18 at 09:00; Stop 10/12/18 at 09:03; Status DC Levofloxacin/ Dextrose 50 ml @ 50 mls/hr 1X ONCE IV Last administered on 10/11/18at 07:42; Start 10/11/18 at 07:00; Stop 10/11/18 at 07:59; Status DC Albuterol Sulfate (Ventolin Neb Soln) 2.5 mg PRN Q4HRS PRN NEB SHORTNESS OF BREATH Last administered on 10/14/18at 03:05; Start 10/11/18 at 07:15 Lorazepam (Ativan) 1 mg 1X ONCE IV Last administered on 10/11/18at 07:37; Start 10/11/18 at 07:30; Stop 10/11/18 at 09:35; Status DC Lorazepam (Ativan) 1 mg PRN Q3HRS PRN IV ANXIETY / AGITATION; Start 10/11/18 at 08:00; Stop 10/11/18 at 09:35; Status DC Piperacillin Sod/ Tazobactam Sod 2.25 gm/Sodium Chloride 50 ml @ 100 mls/hr Q8HRS IV Last administered on 10/13/18at 05:34; Start 10/11/18 at 14:00; Stop 10/13/18 at 08:15; Status DC Ondansetron HCl (Zofran) 4 mg PRN Q6HRS PRN IV NAUSEA/VOMITING; Start 10/11/18 at 08:45 Lactulose (Lactulose) 30 gm TID PO ; Start 10/11/18 at 09:30; Stop 10/11/18 at 11:25; Status DC Sodium Bicarbonate 50 meq/Dextrose 1,050 ml @ 60 mls/hr [id number] IV Last administered on 10/12/18at 02:21; Start 10/11/18 at 10:00; Stop 10/12/18 at 10:58; Status DC Dexmedetomidine HCl 200 mcg/ Sodium Chloride 50 ml @ 0 mls/hr CONT PRN IV PER PROTOCOL Last administered on 10/13/18at 07:33; Start 10/11/18 at 09:45; Stop 10/16/18 at 09:56; Status DC Sodium Chloride 500 ml @ 500 mls/hr 1X PRN PRN IV SEE COMMENTS; Start 10/11/18 at 09:45 Atropine Sulfate (ATROPINE 0.5mg SYRINGE) 0.5 mg PRN Q5MIN PRN IV SEE COMMENTS; Start 10/11/18 at 09:45 Sodium Bicarbonate (Sodium Bicarb Adult 8.4% Syr) 50 meq STK-MED ONCE .ROUTE ; Start 10/11/18 at 09:42; Stop 10/11/18 at 09:43; Status DC Sodium Bicarbonate (Sodium Bicarb Adult 8.4% Syr) 100 meq 1X ONCE IV Last administered on 10/11/18at 10:00; Start 10/11/18 at 10:00; Stop 10/11/18 at 10:01; Status DC Lactulose (Lactulose) 30 gm TID [place] ; Start 10/11/18 at 12:00; Stop 10/11/18 at 13:06; Status DC Lidocaine/Sodium Bicarbonate (Buffered Lidocaine 1%) 3 ml STK-MED ONCE .ROUTE ; Start 10/11/18 at 12:34; Stop 10/11/18 at 12:35; Status DC Heparin Sodium (Porcine) (Heparin Sodium) 10,000 unit STK-MED ONCE .ROUTE ; Start 10/11/18 at 12:34; Stop 10/11/18 at 12:35; Status DC Lactulose (Lactulose) 200 gm TID [place] Last administered on 10/11/18at 20:55; Start 10/11/18 at 14:00; Stop 10/12/18 at 09:22; Status DC Sodium Chloride 1,000 ml @ 1,000 mls/hr Q1H PRN IV hypotension; Start 10/11/18 at 13:06; Stop 10/11/18 at 19:05; Status DC Albumin Human 200 ml @ 200 mls/hr 1X PRN PRN IV Hypotension; Start 10/11/18 at 13:15; Stop 10/11/18 at 19:14; Status DC Sodium Chloride (Normal Saline Flush) 10 ml 1X PRN PRN IV AP catheter pack; Start 10/11/18 at 13:15; Stop 10/12/18 at 13:14; Status DC Sodium Chloride (Normal Saline Flush) 10 ml 1X PRN PRN IV SEC ACCOUNTANT catheter pack; Start 10/11/18 at 13:15; Stop 10/12/18 at 13:14; Status DC Sodium Chloride 1,000 ml @ 400 mls/hr Q2H30M PRN IV PATENCY; Start 10/11/18 at 13:06; Stop 10/12/18 at 01:05; Status DC Info (PHARMACY MONITORING -- do not chart) 1 each PRN DAILY PRN MC SEE COMMENTS; Start 10/11/18 at 13:15; Status UNV Info (PHARMACY MONITORING -- do not chart) 1 each PRN DAILY PRN MC SEE COM MENTS; Start 10/11/18 at 13:15; Stop 10/15/18 at 13:41; Status DC Lidocaine/Sodium Bicarbonate (Buffered Lidocaine 1%) 6 ml 1X ONCE INJ Last administered on 10/11/18at 13:42; Start 10/11/18 at 13:45; Stop 10/11/18 at 13:46; Status DC Potassium Chloride/Water 50 ml @ 50 mls/hr 1X ONCE IV Last administered on 10/12/18at 09:30; Start 10/12/18 at 09:00; Stop 10/12/18 at 09:59; Status DC Lactulose (Lactulose) 200 gm PRN TID PRN [place] CONFUSION Last administered on 10/12/18at 11:37; Start 10/12/18 at 09:30 Amino Acids/ Glycerin/ Electrolytes 1,000 ml @ 60 mls/hr [id number] IV Last administered on 10/18/18at 05:04; Start 10/12/18 at 10:00 Amino Acids/ Glycerin/ Electrolytes 1,000 ml @ As Directed STK-MED ONCE IV ; Start 10/12/18 at 09:58; Stop 10/12/18 at 09:59; Status DC Pantoprazole Sodium (PROTONIX VIAL for IV PUSH) 40 mg BID IVP Last administered on 10/17/18at 08:35; Start 10/12/18 at 21:00; Stop 10/17/18 at 11:45; Status DC Albumin Human 50 ml @ 50 mls/hr 1X ONCE IV Last administered on 10/12/18at 18:04; Start 10/12/18 at 18:00; Stop 10/12/18 at 18:59; Status DC Potassium Chloride/Water 100 ml @ 100 mls/hr Q1H IV Last administered on 10/13/18at 11:33; Start 10/13/18 at 07:00; Stop 10/13/18 at 10:59; Status DC Piperacillin Sod/ Tazobactam Sod 2.25 gm/Sodium Chloride 50 ml @ 100 mls/hr Q6HRS IV Last administered on 10/14/18at 05:59; Start 10/13/18 at 12:00; Stop 10/14/18 at 08:32; Status DC Potassium Chloride/Water 50 ml @ 50 mls/hr PRN Q1HR PRN IV SEE ORDER COMMENTS; Start 10/13/18 at 10:45 Potassium Chloride/Water 50 ml @ 50 mls/hr PRN Q1HR PRN IV SEE ORDER COMMENTS; Start 10/13/18 at 10:45 Potassium Chloride/Water 50 ml @ 50 mls/hr PRN Q1HR PRN IV SEE ORDER COMMENTS; Start 10/13/18 at 11:00 Metoprolol Tartrate (Lopressor Vial) 2.5 mg Q6HRS IVP Last administered on 10/13/18at 16:51; Start 10/13/18 at 15:00; Stop 10/13/18 at 17:22; Status DC Metoprolol Tartrate (Lopressor Vial) 5 mg Q6HRS IVP Last administered on 10/14/18at 05:25; Start 10/13/18 at 18:00; Stop 10/14/18 at 08:54; Status DC Digoxin (Lanoxin) 500 mcg 1X ONCE IV Last administered on 10/13/18at 17:37; Start 10/13/18 at 17:30; Stop 10/13/18 at 17:31; Status DC Potassium Chloride/Water 50 ml @ 0 mls/hr Q1H IV Last administered on 10/14/18at 11:50; Start 10/14/18 at 09:00; Stop 10/14/18 at 12:01; Status DC Diltiazem HCl 125 mg/Dextrose 125 ml @ 5 mls/hr CONT PRN IV SEE I/O RECORD Last administered on 10/17/18at 05:45; Start 10/14/18 at 09:00; Stop 10/17/18 at 18:44; Status DC Diltiazem HCl (Cardizem Iv Push) 10 mg 1X ONCE IVP Last administered on 10/14/18at 09:06; Start 10/14/18 at 09:00; Stop 10/14/18 at 09:01; Status DC Metoprolol Tartrate (Lopressor Vial) 5 mg PRN Q6HRS PRN IVP HYPERTENSION, SEE COMMENTS; Start 10/14/18 at 09:00 Potassium Phosphate 15 mmol/ Sodium Chloride 255 ml @ 127.5 mls/ hr 1X ONCE IV Last administered on 10/14/18 11:17; Start 10/14/18 at 11:00; Stop 10/14/18 at 12:59; Status DC Fentanyl Citrate (Fentanyl 2ml Vial) 50 mcg PRN Q2HR PRN IV PAIN Last administered on 10/17/18at 20:36; Start 10/14/18 at 13:00 Meropenem 500 mg/ Sodium Chloride 50 ml @ 100 mls/hr Q6HRS IV Last administered on 10/18/18at 05:05; Start 10/15/18 at 08:00 Potassium Chloride/Water 50 ml @ 50 mls/hr Q1H IV Last administered on 10/15/18 11:01; Start 10/15/18 at 10:30; Stop 10/15/18 at 12:29; Status DC Magnesium Sulfate 50 ml @ 25 mls/hr 1X ONCE IV Last administered on 10/15/18 12:22; Start 10/15/18 at 10:30; Stop 10/15/18 at 12:29; Status DC Sodium Phosphate 20 mmol/Dextrose 256.6667 ml @ 64.167 m... 1X ONCE IV Last administered on 10/15/18 11:01; Start 10/15/18 at 10:30; Stop 10/15/18 at 14:29; Status DC Metoprolol Tartrate (Lopressor Vial) 2.5 mg Q6HRS IVP Last administered on 10/17/18at 12:20; Start 10/16/18 at 18:00; Stop 10/17/18 at 13:33; Status DC Pantoprazole Sodium (Protonix) 40 mg DAILYAC PO Last administered on 10/18/18at 08:17; Start 10/18/18 at 07:30 Lactobacillus Rhamnosus (Culturelle) 1 cap BID PO Last administered on 10/18/18at 08:17; Start 10/17/18 at 21:00 Aspirin (Ecotrin) 81 mg DAILYWBKFT PO ; Start 10/17/18 at 13:00; Stop 10/17/18 at 13:37; Status DC Metoprolol Tartrate (Lopressor) 25 mg BID PO Last administered on 10/18/18at 08:19; Start 10/17/18 at 13:00 Diltiazem HCl (Cardizem 24hr Cd) 240 mg DAILY PO Last administered on 10/18/18at 08:18; Start 10/17/18 at 13:00 Calcium Carbonate/ Glycine (Tums) 500 mg PRN AFTMEALHC PRN PO INDIGESTION Last administered on 10/17/18at 13:16; Start 10/17/18 at 13:00 Aspirin (Ecotrin) 81 mg DAILYWBKFT PO Last administered on 10/18/18at 08:17; Start 10/17/18 at 14:00 Active Scripts Active Lactulose 20 Gm/30 Ml Solution 20 Gm PO PRN TID PRN 30 Days Klor-Con M20 (Potassium Chloride) 20 Meq Tab.er.prt 40 Meq PO DAILY 30 Days [Pantoprazole] 40 MG Tablet.dr 40 Mg PO DAILYAC 30 Days Hydroxyzine Pamoate 25 Mg Capsule 25 Mg PO PRN Q8HRS PRN 30 Days Aspirin Ec (Aspirin) 81 Mg Tablet.dr 81 Mg PO DAILYWBKFT 30 Days [Diltiazem Hcl] 240 MG Cap.er.24h 240 Mg PO DAILY 30 Days Metoprolol Tartrate 25 Mg Tablet 25 Mg PO BID 30 Days Vitamin B-1 (Thiamine Mononitrate) 100 Mg Tablet 100 Mg PO DAILY Hydrocodone-Apap 7.5-325 (Hydrocodone Bit/Acetaminophen) 1 Each Tablet 1 Tab PO PRN Q3HRS PRN Folic Acid 1 Mg Tablet 1 Mg PO DAILY Reported Tums (Calcium Carbonate) 300 Mg Tab.chew 300 Mg PO TIDAC PRN Cyclobenzaprine Hcl 10 Mg Tablet 1 Tab PO QHS Gabapentin (Gabapentin) 300 Mg Capsule 300 Mg PO TID Vitals/I & O Vital Sign - Last 24 Hours 10/17/18 10/17/18 10/17/1819 10:44 12:20 13:16 13:49 Temp 98.6 98.6 Pulse 79 79 79 79 Resp 17 B/P (MAP) 146/86 (106) 146/86 146/86 146/86 Pulse Ox 97 O2 Delivery Room Air 10/17/18 10/17/18 10/17/18 10/17/18 14:43 19:35 20:00 20:35 Temp 98.1 98.0 98.1 98.0 Pulse 87 81 81 Resp 17 20 B/P (MAP) 141/83 (102) 130/77 (94) 130/77 Pulse Ox 96 97 O2 Delivery Room Air Room Air Room Air 10/17/18 10/17/18 10/17/18 10/18/18 20:36 21:06 22:26 03:20 Temp 97.9 97.7 97.9 97.7 Pulse 75 74 Resp 18 20 20 21 B/P (MAP) 139/84 (102) 136/78 (97) Pulse Ox 97 97 98 96 O2 Delivery Room Air Room Air Room Air Room Air 10/18/18 10/18/18 10/18/18 07:31 08:18 08:19 Temp 97.5 97.5 Pulse 84 84 102 Resp 18 B/P (MAP) 149/95 (113) 149/95 149/95 Pulse Ox 98 O2 Delivery Room Air Intake and Output 10/17/18 10/17/18 10/18/18 14:59 22:59 06:59 Intake Total 240 ml 120 ml 1340 ml Output Total 300 ml 50 ml 850 ml Balance -60 ml 70 ml 490 ml Nutrition Consultation Dietary Evaluation: Recommendations by RD: Increase Calorie Intake, PPN/TPN Comments: Intake 75-100% on full liquids, obtained food preferences REC d/c ppn REc advance PO diet to low salt/high protein when able Expected Outcomes/Goals: diet advancement - on going Malnutrition Findings: Food and Nutrition Intake (Sev: <50% est energy req 5days Weight Status: Appropriate CARMELINA LAMBERT MD October 18, 2018 08:47
--- NOTE | 2018-10-18 10:41 | PDOC ---
Infectious Disease Note Subjective Subjective Comfortable, denies pain Wants to go home and see his dog, feels ready Eating and walking Denies F/C/D/N/V/SOA ROS ROS per HPI Vital Sign Vital Signs Vital Signs Date Time Temp Pulse Resp B/P (MAP) Pulse Ox O2 Delivery O2 Flow Rate FiO2 10/18/18 08:19 102 149/95 10/18/18 07:31 97.5 18 98 Room Air 97.5 Physical Exam PHYSICAL EXAM GENERAL: Lying down, alert, NAD HENT: PERRL. Oral cavity dry, edentulous LUNGS: Clear CV: S1 S2 irregular ABD: Soft and nontender, BS present EXT: No gross edema or cyanosis SKIN: No generalized rash RESEARCH GROUP DIRECTOR: Alert ,nonfocal Nontunneled RIJ trialysis cath (10/11) clean Labs Lab Laboratory Tests Test 10/18/18 04:30 White Blood Count 13.3 x10^3/uL (4.0-11.0) Red Blood Count 4.22 x10^6/uL (4.30-5.70) Hemoglobin 8.7 g/dL (13.0-17.5) Hematocrit 28.7 % (39.0-53.0) Mean Corpuscular Volume 68 fL (79-100) Mean Corpuscular Hemoglobin 21 pg (25-35) Mean Corpuscular Hemoglobin Concent 30 g/dL (31-37) Red Cell Distribution Width 29.5 % (11.5-14.5) Platelet Count 120 x10^3/uL (140-400) Neutrophils (%) (Auto) 73 % (31-73) Lymphocytes (%) (Auto) 13 % (24-48) Monocytes (%) (Auto) 12 % (0-9) Eosinophils (%) (Auto) 2 % (0-3) Basophils (%) (Auto) 0 % (0-3) Neutrophils # (Auto) 9.7 x10^3uL (1.8-7.7) Lymphocytes # (Auto) 1.7 x10^3/uL (1.0-4.8) Monocytes # (Auto) 1.6 x10^3/uL (0.0-1.1) Eosinophils # (Auto) 0.3 x10^3/uL (0.0-0.7) Basophils # (Auto) 0.1 x10^3/uL (0.0-0.2) Sodium Level 132 mmol/L (136-145) Potassium Level 3.8 mmol/L (3.5-5.1) Chloride Level 101 mmol/L (98-107) Carbon Dioxide Level 20 mmol/L (21-32) Anion Gap 11 (6-14) Blood Urea Nitrogen 13 mg/dL (8-26) Creatinine 0.8 mg/dL (0.7-1.3) Estimated GFR (Cockcroft-Gault) 98.0 BUN/Creatinine Ratio 16 (6-20) Glucose Level 88 mg/dL (70-99) Calcium Level 8.1 mg/dL (8.5-10.1) Total Bilirubin 2.2 mg/dL (0.2-1.0) Aspartate Amino Transf (AST/SGOT) 49 U/L (15-37) Alanine Aminotransferase (ALT/SGPT) 270 U/L (16-63) Alkaline Phosphatase 93 U/L (46-116) Total Protein 6.1 g/dL (6.4-8.2) Albumin 2.4 g/dL (3.4-5.0) Albumin/Globulin Ratio 0.6 (1.0-1.7) Micro 5/3. BLOOD CULTURE Preliminary NO GROWTH AFTER 1 DAY Objective Assessment Sepsis with lactic acidosis source GI ischemic colitis, improved Leukocytosis Acute encephalopathy likely metabolic with hepatic failure, improved NATHANIEL on CKD, improved Acute liver failure, ammonia wnl, improved Respiratory insufficiency Abdominal pain CT 10/14 showing persistent mural thickening involving the cecum raising the possibility of neoplasm versus nonspecific colitis. Cholelithiasis A- fib Hep C Anemia s/p fall Recent hospitalization Myoclonic movements bue, from hepatic failure improved Pleural effusion with mild bibasilar atelectasis. Plan Plan of Care Clinically doing well D/c meropenem Start Augmentin for 5 days Anticipating discharge home soon Colonoscopy and EGD, OP per GI D/w nursing D/w Dr. Mckenzie Patient seen and examined. Chart reviewed in detail. Case discussed with SPRAY GUN OPERATOR. Agree with above plan. JAKOB SCOTT APRN October 18, 2018 10:41 AMADOR PENALOZA MD October 19, 2018 18:58
[2018-10-18] MEDS ORDERED: AMOXICILLIN/K CLAV 875/125MG TABLET. PO SCH (11:00)
[2018-10-18 11:18] VITALS: BP 127/85
--- NOTE | 2018-10-18 11:34 | PDOC3 ---
Discharge Summary Date of Admission: October 10, 2018 Date of Discharge: October 18, 2018 Follow-Up: 1-2 days Admitting Diagnosis comment: discharge dx 1.Severe septic shock 2.Shock liver 3 Circumferential wall thickening of the cecum and rectum suggests focal colitis. Underlying mass not ruled out. Colonoscopy recommended. No bowel obstruction. 4 Consolidation in the right lower lobe may be secondary to passive atelectasis from the adjacent small bowel pleural effusion aspiration pneumonia. 5. Fractures of the right transverse processes of the L2-L4 vertebral bodies, age indeterminate. Clinically correlate with focal tenderness. 6. Left groin emphysema may be secondary to placement of the intravenous catheter. Clinically correlate with signs of infection. 6. Cholelithiasis. 7. hx severe alcohol abuse 8. metabolic acidosis, severe 9. Hep C viral titer positive. Given compliance issues, seems not a good candidate for anti-HCV treatment 10. cardiomegaly, recent echo 09/26 c/w The Ejection Fraction was estimated at 50%. Septal motion consistent with conduction abnormality. There is no significant aortic valvular stenosis. Doppler and Color Flow revealed no significant aortic regurgitation. Doppler and Color-flow revealed mild to moderate mitral regurgitation. 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 anemia, prob GI BLEED 13. hypothermia 14. hypoxic resp failure 15. coagulopathy 16. TOBACCO ABUSE/ COPD 17. Metabolic toxic encephalopathy 18. Afib 19. microcytic anemia 20. Moderate atrophy with white matter changes likely secondary to chronic microvascular ischemic disease.on ct head 21. Interstitial pulmonary edema or atypical/viral infection. Found down by a neighbor with Transaminaseitis and mental status change (AST 4514, ALT 1550, Lactate 14.9. WBC 14.7, Hb 6.5 with bright red blood per rectum ) Abd pain, abnormal cecum on CT Hep C, shock liver ALLI A Fib Severe metabolic encephalopathy 44 min pt exam, chart review, > 50% of time spent with exam, chart review, pt care coordination History of Present Illness History of Present Illness Patient seen and examined Patient alert in NAD Discussed with Nurse He states has begun eating,PULM OK WITH D/C TODAY, HOME HEALTH Reports abdominal pain has been improving Reports no pulmonary complaint D/C PLANNING 43 MIN Vitals Vitals Vital Signs Date Time Temp Pulse Resp B/P (MAP) Pulse Ox O2 Delivery O2 Flow Rate FiO2 10/18/18 08:19 102 149/95 10/18/18 07:31 97.5 18 98 Room Air 97.5 Physical Exam Physical Exam GENERAL: alert awake HENT: PERRL. Oral cavity dry LUNGS: Clear CV: S1 S2 irregular ABD: Soft, tenderness in RLQ improving, no rebound or guarding : Rodriguez out EXT: No gross edema or cyanosis SKIN: No generalized rash ENCEPHALOGRAPHER:awake , alert ,nonfocal Nontunneled RIJ/HDC (10/11) clean General: Alert, Oriented X3, Cooperative, No acute distress Heart: Regular rate, Normal S1, Other (irregularly irregular) Lungs: Clear, Wheezing (slight), Other (decrease bs) Abdomen: Soft, No tenderness Extremities: No clubbing, No cyanosis Skin: No rashes, No breakdown FINAL DIAGNOSIS Problems Medical Problems: (1) Lactic acidosis Status: Acute (2) Liver failure Status: Acute (3) Pneumonia Status: Acute (4) Renal failure Status: Acute Brief Hospital Course Mr. Whitney is a 63 old [sex] who presented with [SEVERE SEPSIS ] CONDITION AT DISCHARGE: Improved Discharge Medications Current Medications Sodium Chloride 1,000 ml @ 1,000 mls/hr 1X ONCE IV Last administered on 10/10/18 22:43; Start 10/10/18 at 22:00; Stop 10/10/18 at 22:59; Status DC Sodium Chloride 1,000 ml @ 1,000 mls/hr 1X ONCE IV Last administered on 10/10/18at 22:42; Start 10/10/18 at 22:00; Stop 10/10/18 at 22:59; Status DC Piperacillin Sod/ Tazobactam Sod (Zosyn Per Pharmacy) 1 each PRN DAILY PRN MC SEE COMMENTS; Start 10/10/18 at 22:00; Stop 10/10/18 at 22:33; Status DC Piperacillin Sod/ Tazobactam Sod 3.375 gm/Sodium Chloride 50 ml @ 100 mls/hr 1X ONCE IV Last administered on 10/10/18at 22:44; Start 10/10/18 at 22:15; Stop 10/10/18 at 22:44; Status DC Sodium Bicarbonate (Sodium Bicarb Adult 8.4% Syr) 50 meq 1X ONCE IV Last administered on 10/10/18at 22:43; Start 10/10/18 at 22:30; Stop 10/10/18 at 22:31; Status DC Calcium Gluconate (Calcium Gluconate) 1,000 mg 1X ONCE IVP Last administered on 10/10/18at 22:43; Start 10/10/18 at 22:30; Stop 10/10/18 at 22:31; Status DC Piperacillin Sod/ Tazobactam Sod (Zosyn Per Pharmacy) 1 each PRN DAILY PRN MC SEE COMMENTS; Start 10/10/18 at 22:45; Stop 10/14/18 at 08:32; Status DC Pantoprazole Sodium 80 mg/ Sodium Chloride 100 ml @ 10 mls/hr Q10H IV Last administered on 10/12/18at 08:31; Start 10/10/18 at 23:30; Stop 10/12/18 at 14:57; Status DC Phytonadione 10 mg/Dextrose 51 ml @ 102 mls/hr 1X ONCE IV Last administered on 10/10/18at 23:46; Start 10/10/18 at 23:30; Stop 10/10/18 at 23:59; Status DC Octreotide Acetate 500 mcg/ Sodium Chloride 101 ml @ 0 mls/hr CONT PRN IV SEE I/O RECORD Last administered on 10/12/18at 08:32; Start 10/10/18 at 23:45; Stop 10/12/18 at 14:57; Status DC Sodium Bicarbonate 50 meq/Dextrose 1,050 ml @ 125 mls/hr 1X ONCE IV Last administered on 10/11/18at 00:01; Start 10/10/18 at 23:55; Stop 10/11/18 at 08:18; Status DC Piperacillin Sod/ Tazobactam Sod 2.25 gm/Sodium Chloride 50 ml @ 100 mls/hr Q6HRS IV Last administered on 10/11/18at 05:30; Start 10/11/18 at 06:00; Stop 10/11/18 at 08:25; Status DC Meropenem 500 mg/ Sodium Chloride 50 ml @ 100 mls/hr Q8HRS IV ; Start 10/11/18 at 14:00; Stop 10/11/18 at 14:00; Status DC Ondansetron HCl (Zofran) 4 mg 1X ONCE IV Last administered on 10/11/18at 06:41; Start 10/11/18 at 06:45; Stop 10/11/18 at 06:46; Status DC Thiamine HCl 100 mg/Dextrose 51 ml @ 102 mls/hr 1X ONCE IV Last administered on 10/11/18at 07:40; Start 10/11/18 at 07:00; Stop 10/11/18 at 07:29; Status DC Folic Acid (Folic Acid) 1 mg DAILY PO ; Start 10/11/18 at 09:00; Stop 10/12/18 at 09:03; Status DC Levofloxacin/ Dextrose 50 ml @ 50 mls/hr 1X ONCE IV Last administered on 10/11/18at 07:42; Start 10/11/18 at 07:00; Stop 10/11/18 at 07:59; Status DC Albuterol Sulfate (Ventolin Neb Soln) 2.5 mg PRN Q4HRS PRN NEB SHORTNESS OF BREATH Last administered on 10/14/18at 03:05; Start 10/11/18 at 07:15 Lorazepam (Ativan) 1 mg 1X ONCE IV Last administered on 10/11/18at 07:37; Start 10/11/18 at 07:30; Stop 10/11/18 at 09:35; Status DC Lorazepam (Ativan) 1 mg PRN Q3HRS PRN IV ANXIETY / AGITATION; Start 10/11/18 at 08:00; Stop 10/11/18 at 09:35; Status DC Piperacillin Sod/ Tazobactam Sod 2.25 gm/Sodium Chloride 50 ml @ 100 mls/hr Q8HRS IV Last administered on 10/13/18at 05:34; Start 10/11/18 at 14:00; Stop 10/13/18 at 08:15; Status DC Ondansetron HCl (Zofran) 4 mg PRN Q6HRS PRN IV NAUSEA/VOMITING; Start 10/11/18 at 08:45 Lactulose (Lactulose) 30 gm TID PO ; Start 10/11/18 at 09:30; Stop 10/11/18 at 11:25; Status DC Sodium Bicarbonate 50 meq/Dextrose 1,050 ml @ 60 mls/hr [id number] IV Last administered on 10/12/18at 02:21; Start 10/11/18 at 10:00; Stop 10/12/18 at 10:58; Status DC Dexmedetomidine HCl 200 mcg/ Sodium Chloride 50 ml @ 0 mls/hr CONT PRN IV PER PROTOCOL Last administered on 10/13/18at 07:33; Start 10/11/18 at 09:45; Stop 10/16/18 at 09:56; Status DC Sodium Chloride 500 ml @ 500 mls/hr 1X PRN PRN IV SEE COMMENTS; Start 10/11/18 at 09:45 Atropine Sulfate (ATROPINE 0.5mg SYRINGE) 0.5 mg PRN Q5MIN PRN IV SEE COMMENTS; Start 10/11/18 at 09:45 Sodium Bicarbonate (Sodium Bicarb Adult 8.4% Syr) 50 meq STK-MED ONCE .ROUTE ; Start 10/11/18 at 09:42; Stop 10/11/18 at 09:43; Status DC Sodium Bicarbonate (Sodium Bicarb Adult 8.4% Syr) 100 meq 1X ONCE IV Last administered on 10/11/18at 10:00; Start 10/11/18 at 10:00; Stop 10/11/18 at 10:01; Status DC Lactulose (Lactulose) 30 gm TID VT ; Start 10/11/18 at 12:00; Stop 10/11/18 at 13:06; Status DC Lidocaine/Sodium Bicarbonate (Buffered Lidocaine 1%) 3 ml STK-MED ONCE .ROUTE ; Start 10/11/18 at 12:34; Stop 10/11/18 at 12:35; Status DC Heparin Sodium (Porcine) (Heparin Sodium) 10,000 unit STK-MED ONCE .ROUTE ; Start 10/11/18 at 12:34; Stop 10/11/18 at 12:35; Status DC Lactulose (Lactulose) 200 gm TID VT Last administered on 10/11/18at 20:55; Start 10/11/18 at 14:00; Stop 10/12/18 at 09:22; Status DC Sodium Chloride 1,000 ml @ 1,000 mls/hr Q1H PRN IV hypotension; Start 10/11/18 at 13:06; Stop 10/11/18 at 19:05; Status DC Albumin Human 200 ml @ 200 mls/hr 1X PRN PRN IV Hypotension; Start 10/11/18 at 13:15; Stop 10/11/18 at 19:14; Status DC Sodium Chloride (Normal Saline Flush) 10 ml 1X PRN PRN IV AP catheter pack; Start 10/11/18 at 13:15; Stop 10/12/18 at 13:14; Status DC Sodium Chloride (Normal Saline Flush) 10 ml 1X PRN PRN IV SPECIAL SERVICE REPRESENTATIVE catheter pack; Start 10/11/18 at 13:15; Stop 10/12/18 at 13:14; Status DC Sodium Chloride 1,000 ml @ 400 mls/hr Q2H30M PRN IV PATENCY; Start 10/11/18 at 13:06; Stop 10/12/18 at 01:05; Status DC Info (PHARMACY MONITORING -- do not chart) 1 each PRN DAILY PRN MC SEE COMMENTS; Start 10/11/18 at 13:15; Status UNV Info (PHARMACY MONITORING -- do not chart) 1 each PRN DAILY PRN MC SEE COMMENTS; Start 10/11/18 at 13:15; Stop 10/15/18 at 13:41; Status DC Lidocaine/Sodium Bicarbonate (Buffered Lidocaine 1%) 6 ml 1X ONCE INJ Last administered on 10/11/18at 13:42; Start 10/11/18 at 13:45; Stop 10/11/18 at 13:46; Status DC Potassium Chloride/Water 50 ml @ 50 mls/hr 1X ONCE IV Last administered on 10/12/18at 09:30; Start 10/12/18 at 09:00; Stop 10/12/18 at 09:59; Status DC Lactulose (Lactulose) 200 gm PRN TID PRN VT CONFUSION Last administered on 10/12/18at 11:37; Start 10/12/18 at 09:30 Amino Acids/ Glycerin/ Electrolytes 1,000 ml @ 60 mls/hr [id number] IV Last administered on 10/18/18at 05:04; Start 10/12/18 at 10:00 Amino Acids/ Glycerin/ Electrolytes 1,000 ml @ As Directed STK-MED ONCE IV ; Start 10/12/18 at 09:58; Stop 10/12/18 at 09:59; Status DC Pantoprazole Sodium (PROTONIX VIAL for IV PUSH) 40 mg BID IVP Last administered on 10/17/18at 08:35; Start 10/12/18 at 21:00; Stop 10/17/18 at 11:45; Status DC Albumin Human 50 ml @ 50 mls/hr 1X ONCE IV Last administered on 10/12/18at 18:04; Start 10/12/18 at 18:00; Stop 10/12/18 at 18:59; Status DC Potassium Chloride/Water 100 ml @ 100 mls/hr Q1H IV Last administered on 10/13/18at 11:33; Start 10/13/18 at 07:00; Stop 10/13/18 at 10:59; Status DC Piperacillin Sod/ Tazobactam Sod 2.25 gm/Sodium Chloride 50 ml @ 100 mls/hr Q6HRS IV Last administered on 10/14/18at 05:59; Start 10/13/18 at 12:00; Stop 10/14/18 at 08:32; Status DC Potassium Chloride/Water 50 ml @ 50 mls/hr PRN Q1HR PRN IV SEE ORDER COMMENTS; Start 10/13/18 at 10:45 Potassium Chloride/Water 50 ml @ 50 mls/hr PRN Q1HR PRN IV SEE ORDER COMMENTS; Start 10/13/18 at 10:45 Potassium Chloride/Water 50 ml @ 50 mls/hr PRN Q1HR PRN IV SEE ORDER COMMENTS; Start 10/13/18 at 11:00 Metoprolol Tartrate (Lopressor Vial) 2.5 mg Q6HRS IVP Last administered on 10/13/18at 16:51; Start 10/13/18 at 15:00; Stop 10/13/18 at 17:22; Status DC Metoprolol Tartrate (Lopressor Vial) 5 mg Q6HRS IVP Last administered on 10/14/18at 05:25; Start 10/13/18 at 18:00; Stop 10/14/18 at 08:54; Status DC Digoxin (Lanoxin) 500 mcg 1X ONCE IV Last administered on 10/13/18at 17:37; Start 10/13/18 at 17:30; Stop 10/13/18 at 17:31; Status DC Potassium Chloride/Water 50 ml @ 0 mls/hr Q1H IV Last administered on 10/14/18at 11:50; Start 10/14/18 at 09:00; Stop 10/14/18 at 12:01; Status DC Diltiazem HCl 125 mg/Dextrose 125 ml @ 5 mls/hr CONT PRN IV SEE I/O RECORD Last administered on 10/17/18at 05:45; Start 10/14/18 at 09:00; Stop 10/17/18 at 18:44; Status DC Diltiazem HCl (Cardizem Iv Push) 10 mg 1X ONCE IVP Last administered on 10/14/18at 09:06; Start 10/14/18 at 09:00; Stop 10/14/18 at 09:01; Status DC Metoprolol Tartrate (Lopressor Vial) 5 mg PRN Q6HRS PRN IVP HYPERTENSION, SEE COMMENTS; Start 10/14/18 at 09:00 Potassium Phosphate 15 mmol/ Sodium Chloride 255 ml @ 127.5 mls/ hr 1X ONCE IV Last administered on 10/14/18at 11:17; Start 10/14/18 at 11:00; Stop 10/14/18 at 12:59; Status DC Fentanyl Citrate (Fentanyl 2ml Vial) 50 mcg PRN Q2HR PRN IV PAIN Last administered on 10/17/18at 20:36; Start 10/14/18 at 13:00 Meropenem 500 mg/ Sodium Chloride 50 ml @ 100 mls/hr Q6HRS IV Last administered on 10/18/18at 05:05; Start 10/15/18 at 08:00; Stop 10/18/18 at 10:41; Status DC Potassium Chloride/Water 50 ml @ 50 mls/hr Q1H IV Last administered on 10/15/18at 11:01; Start 10/15/18 at 10:30; Stop 10/15/18 at 12:29; Status DC Magnesium Sulfate 50 ml @ 25 mls/hr 1X ONCE IV Last administered on 10/15/18at 12:22; Start 10/15/18 at 10:30; Stop 10/15/18 at 12:29; Status DC Sodium Phosphate 20 mmol/Dextrose 256.6667 ml @ 64.167 m... 1X ONCE IV Last administered on 10/15/18at 11:01; Start 10/15/18 at 10:30; Stop 10/15/18 at 14:29; Status DC Metoprolol Tartrate (Lopressor Vial) 2.5 mg Q6HRS IVP Last administered on 10/17/18at 12:20; Start 10/16/18 at 18:00; Stop 10/17/18 at 13:33; Status DC Pantoprazole Sodium (Protonix) 40 mg DAILYAC PO Last administered on 10/18/18 08:17; Start 10/18/18 at 07:30 Lactobacillus Rhamnosus (Culturelle) 1 cap BID PO Last administered on 10/18/18at 08:17; Start 10/17/18 at 21:00 Aspirin (Ecotrin) 81 mg DAILYWBKFT PO ; Start 10/17/18 at 13:00; Stop 10/17/18 at 13:37; Status DC Metoprolol Tartrate (Lopressor) 25 mg BID PO Last administered on 10/18/18at 08:19; Start 10/17/18 at 13:00 Diltiazem HCl (Cardizem 24hr Cd) 240 mg DAILY PO Last administered on 10/18/18at 08:18; Start 10/17/18 at 13:00 Calcium Carbonate/ Glycine (Tums) 500 mg PRN AFTMEALHC PRN PO INDIGESTION Last administered on 10/17/18at 13:16; Start 10/17/18 at 13:00 Aspirin (Ecotrin) 81 mg DAILYWBKFT PO Last administered on 10/18/18at 08:17; Start 10/17/18 at 14:00 Amoxicillin/ Clavulanate Potassium (Augmentin 875/ 125mg) 1 tab BID PO Last administered on 10/18/18at 11:29; Start 10/18/18 at 11:00 Active Scripts Active Lactulose 20 Gm/30 Ml Solution 20 Gm PO PRN TID PRN 30 Days Klor-Con M20 (Potassium Chloride) 20 Meq Tab.er.prt 40 Meq PO DAILY 30 Days [Pantoprazole] 40 MG Tablet.dr 40 Mg PO DAILYAC 30 Days Hydroxyzine Pamoate 25 Mg Capsule 25 Mg PO PRN Q8HRS PRN 30 Days Aspirin Ec (Aspirin) 81 Mg Tablet.dr 81 Mg PO DAILYWBKFT 30 Days [Diltiazem Hcl] 240 MG Cap.er.24h 240 Mg PO DAILY 30 Days Metoprolol Tartrate 25 Mg Tablet 25 Mg PO BID 30 Days Vitamin B-1 (Thiamine Mononitrate) 100 Mg Tablet 100 Mg PO DAILY Hydrocodone-Apap 7.5-325 (Hydrocodone Bit/Acetaminophen) 1 Each Tablet 1 Tab PO PRN Q3HRS PRN Folic Acid 1 Mg Tablet 1 Mg PO DAILY Reported Tums (Calcium Carbonate) 300 Mg Tab.chew 300 Mg PO TIDAC PRN Cyclobenzaprine Hcl 10 Mg Tablet 1 Tab PO QHS Gabapentin (Gabapentin) 300 Mg Capsule 300 Mg PO TID Vital Signs Vital Signs Date Time Temp Pulse Resp B/P (MAP) Pulse Ox O2 Delivery O2 Flow Rate FiO2 10/18/18 11:18 97.7 99 18 127/85 (99) 97 Room Air 97.7 Labs Laboratory Tests Test 10/16/18 13:18 10/17/18 03:30 10/18/18 04:30 Prothrombin Time 17.8 SEC (11.7-14.0) Prothromb Time International Ratio 1.5 (0.8-1.1) White Blood Count 10.7 x10^3/uL (4.0-11.0) 13.3 x10^3/uL (4.0-11.0) Red Blood Count 4.30 x10^6/uL (4.30-5.70) 4.22 x10^6/uL (4.30-5.70) Hemoglobin 8.9 g/dL (13.0-17.5) 8.7 g/dL (13.0-17.5) Hematocrit 28.9 % (39.0-53.0) 28.7 % (39.0-53.0) Mean Corpuscular Volume 67 fL (79-100) 68 fL (79-100) Mean Corpuscular Hemoglobin 21 pg (25-35) 21 pg (25-35) Mean Corpuscular Hemoglobin Concent 31 g/dL (31-37) 30 g/dL (31-37) Red Cell Distribution Width 29.8 % (11.5-14.5) 29.5 % (11.5-14.5) Platelet Count 95 x10^3/uL (140-400) 120 x10^3/uL (140-400) Neutrophils (%) (Auto) 67 % (31-73) 73 % (31-73) Lymphocytes (%) (Auto) 13 % (24-48) 13 % (24-48) Monocytes (%) (Auto) 17 % (0-9) 12 % (0-9) Eosinophils (%) (Auto) 2 % (0-3) 2 % (0-3) Basophils (%) (Auto) 0 % (0-3) 0 % (0-3) Neutrophils # (Auto) 7.1 x10^3uL (1.8-7.7) 9.7 x10^3uL (1.8-7.7) Lymphocytes # (Auto) 1.4 x10^3/uL (1.0-4.8) 1.7 x10^3/uL (1.0-4.8) Monocytes # (Auto) 1.8 x10^3/uL (0.0-1.1) 1.6 x10^3/uL (0.0-1.1) Eosinophils # (Auto) 0.2 x10^3/uL (0.0-0.7) 0.3 x10^3/uL (0.0-0.7) Basophils # (Auto) 0.0 x10^3/uL (0.0-0.2) 0.1 x10^3/uL (0.0-0.2) Sodium Level 136 mmol/L (136-145) 132 mmol/L (136-145) Potassium Level 3.7 mmol/L (3.5-5.1) 3.8 mmol/L (3.5-5.1) Chloride Level 104 mmol/L (98-107) 101 mmol/L (98-107) Carbon Dioxide Level 21 mmol/L (21-32) 20 mmol/L (21-32) Anion Gap 11 (6-14) 11 (6-14) Blood Urea Nitrogen 16 mg/dL (8-26) 13 mg/dL (8-26) Creatinine 0.9 mg/dL (0.7-1.3) 0.8 mg/dL (0.7-1.3) Estimated GFR (Cockcroft-Gault) 85.5 98.0 BUN/Creatinine Ratio 18 (6-20) 16 (6-20) Glucose Level 107 mg/dL (70-99) 88 mg/dL (70-99) Calcium Level 8.1 mg/dL (8.5-10.1) 8.1 mg/dL (8.5-10.1) Total Bilirubin 2.3 mg/dL (0.2-1.0) 2.2 mg/dL (0.2-1.0) Aspartate Amino Transf (AST/SGOT) 64 U/L (15-37) 49 U/L (15-37) Alanine Aminotransferase (ALT/SGPT) 350 U/L (16-63) 270 U/L (16-63) Alkaline Phosphatase 87 U/L (46-116) 93 U/L (46-116) Total Protein 5.8 g/dL (6.4-8.2) 6.1 g/dL (6.4-8.2) Albumin 2.3 g/dL (3.4-5.0) 2.4 g/dL (3.4-5.0) Albumin/Globulin Ratio 0.7 (1.0-1.7) 0.6 (1.0-1.7) Laboratory Tests Test 10/18/18 04:30 White Blood Count 13.3 x10^3/uL (4.0-11.0) Red Blood Count 4.22 x10^6/uL (4.30-5.70) Hemoglobin 8.7 g/dL (13.0-17.5) Hematocrit 28.7 % (39.0-53.0) Mean Corpuscular Volume 68 fL (79-100) Mean Corpuscular Hemoglobin 21 pg (25-35) Mean Corpuscular Hemoglobin Concent 30 g/dL (31-37) Red Cell Distribution Width 29.5 % (11.5-14.5) Platelet Count 120 x10^3/uL (140-400) Neutrophils (%) (Auto) 73 % (31-73) Lymphocytes (%) (Auto) 13 % (24-48) Monocytes (%) (Auto) 12 % (0-9) Eosinophils (%) (Auto) 2 % (0-3) Basophils (%) (Auto) 0 % (0-3) Neutrophils # (Auto) 9.7 x10^3uL (1.8-7.7) Lymphocytes # (Auto) 1.7 x10^3/uL (1.0-4.8) Monocytes # (Auto) 1.6 x10^3/uL (0.0-1.1) Eosinophils # (Auto) 0.3 x10^3/uL (0.0-0.7) Basophils # (Auto) 0.1 x10^3/uL (0.0-0.2) Sodium Level 132 mmol/L (136-145) Potassium Level 3.8 mmol/L (3.5-5.1) Chloride Level 101 mmol/L (98-107) Carbon Dioxide Level 20 mmol/L (21-32) Anion Gap 11 (6-14) Blood Urea Nitrogen 13 mg/dL (8-26) Creatinine 0.8 mg/dL (0.7-1.3) Estimated GFR (Cockcroft-Gault) 98.0 BUN/Creatinine Ratio 16 (6-20) Glucose Level 88 mg/dL (70-99) Calcium Level 8.1 mg/dL (8.5-10.1) Total Bilirubin 2.2 mg/dL (0.2-1.0) Aspartate Amino Transf (AST/SGOT) 49 U/L (15-37) Alanine Aminotransferase (ALT/SGPT) 270 U/L (16-63) Alkaline Phosphatase 93 U/L (46-116) Total Protein 6.1 g/dL (6.4-8.2) Albumin 2.4 g/dL (3.4-5.0) Albumin/Globulin Ratio 0.6 (1.0-1.7) Allergies Allergies Coded Allergies Type Severity Reaction Last Updated Verified lisinopril Allergy Severe Swelling 01/27/17 Yes Disposition/Orders: D/C to Home w/ PARMJIT Patient Instructions D/C PLANNING 43 MIN CARMELINA LAMBERT MD October 18, 2018 11:34
[2018-10-18] MEDS ORDERED: ALBU2.5V8 NEB (11:39)
[2018-10-18] MEDS ORDERED: AMOX1TAB11 PO (11:39)
[2018-10-18] MEDS ORDERED: LACT1CAP19 PO (11:39)
--- NOTE | 2018-10-18 11:41 | SNU/HH DC ---
DISCHARGE WITH HOME HEALTH DISCHARGE INFORMATION: Final Diagnosis: Problems Medical Problems: (1) Lactic acidosis Status: Acute (2) Liver failure Status: Acute (3) Pneumonia Status: Acute (4) Renal failure Status: Acute Condition on Discharge: Stable CODE STATUS: Code Status: Full HOME HEALTH: Face to Face: I certify this patient is under my care and that I, or a nurse practitioner or physician's credit assistant working with me, had a face to face encounter that meets the physician face to face encounter requirements with this patient on [10/18/18]. Medical Complications: COPD, Falls, Other (SEPSIS) RN For Eval/Treatment: Yes Physical Therapy For: Evalulation/Treatment Occupational Therapy For: Evaluation/Treatment Speech Language Pathology For: Evaluation/Treatment Home Health Aide For: Self-care CRIPPLE CUTTER For: Community Resources Pt Meets Homebound Status: Unsteady balance w/ amb, POST DISCHARGE ORDERS: Activity Instructions for Disc: Activity as tolerated Weight Bearing Status after Di: As tolerated DIET AFTER DISCHARGE: Cardiac CHECKS AFTER DISCHARGE: Checks after discharge: Check blood press - daily, Check your Temp as needed FOLLOW-UP: PCP to follow Home Health: 1 DAY Follow up with: PCP 4 DAYS TREATMENT/EQUIPMENT ORDERS: Adaptive Equipment Issued: None CERTIFICATION STATEMENT: Certification Statement: Certification Statement: Based on the above finding, I certify that this patient is confined to the home and needs intermittent detention care, physical therapy and/or speech therapy, or continues to need occupational therapy.~ This patient is under my care, and I have initiated the establishment of the plan of care.~ This patient will be followed by myself or a community physician who will periodically review the plan of care. Home Meds Active Scripts Lactobacillus Rhamnosus Gg (CULTURELLE) 1 Each Cap.sprink, 1 CAP PO BID for SUPPLEMENT for 14 Days, #28 CAP Prov:CARMELINA LAMBERT MD 10/18/18 Albuterol Sulfate (Proair Hfa) 8.5 Gm Hfa.aer.ad, 2.5 MG NEB PRN Q4HRS PRN for SHORTNESS OF BREATH for 30 Days, #1 INHALER Prov:CARMELINA LAMBETR MD 10/18/18 Amoxicillin/Potassium Clav (AMOX TR-K CLV 875-125 MG TAB) 1 Each Tablet, 1 TAB PO BID for INFECTION for 5 Days, #10 TAB Prov:CARMELINA LAMBERT MD 10/18/18 Lactulose (LACTULOSE) 20 Gm/30 Ml Solution, 20 GM PO PRN TID PRN for CONSTIPATION for 30 Days, #1 MISC Prov:REESE HENAO MD 10/07/18 Potassium Chloride (KLOR-CON M20) 20 Meq Tab.er.prt, 40 MEQ PO DAILY for Hypokalemia for 30 Days, #60 TAB.SR 2 Refills Prov:REESE HENAO MD 09/13/18 [Pantoprazole] 40 MG TABLET. No Conflict Check, 40 MG PO DAILYAC for GERD for 30 Days, #30 2 Refills Prov:REESE HENAO MD 09/13/18 Aspirin (ASPIRIN EC) 81 Mg Tablet., 81 MG PO DAILYWBKFT for Afib for 30 Days, #30 TAB.SR 11 Refills Prov:REESE HENAO MD 09/13/18 [dilTIAZem HCL] 240 MG CAP.ER.24H No Conflict Check, 240 MG PO DAILY for AFIB f or 30 Days, #30 CAP.SR 2 Refills Prov:REESE HENAO MD 09/13/18 Metoprolol Tartrate (METOPROLOL TARTRATE) 25 Mg Tablet, 25 MG PO BID for Afib for 30 Days, #60 TAB 2 Refills Prov:REESE HENAO MD 09/13/18 Thiamine Mononitrate (VITAMIN B-1) 100 Mg Tablet, 100 MG PO DAILY, #30 TAB Prov:DANIEL WOO MD 02/07/17 Folic Acid (FOLIC ACID) 1 Mg Tablet, 1 MG PO DAILY, #30 TAB Prov:DANIEL WOO MD 02/07/17 Reported Medications Calcium Carbonate (TUMS) 300 Mg Tab.chew, 300 MG PO TIDAC PRN for GI SYMPTOMS, TAB.CHEW 10/06/18 Discontinued Reported Medications Cyclobenzaprine Hcl (CYCLOBENZAPRINE HCL) 10 Mg Tablet, 1 TAB PO QHS for pain, #30 TAB 10/06/18 Gabapentin (GABAPENTIN ) 300 Mg Capsule, 300 MG PO TID for NEUROGENIC PAIN, CAP 10/06/18 Discontinued Scripts Hydroxyzine Pamoate (HYDROXYZINE PAMOATE) 25 Mg Capsule, 25 MG PO PRN Q8HRS PRN for ITCHING for 30 Days, #90 CAP 2 Refills Prov:REESE HENAO MD 09/13/18 Hydrocodone Bit/Acetaminophen (HYDROCODONE-APAP 7.5-325 ) 1 Each Tablet, 1 TAB PO PRN Q3HRS PRN for PAIN, #20 TAB Prov:DANIEL WOO MD 02/07/17 CARMELINA LAMBERT MD October 18, 2018 11:41
--- NOTE | 2018-10-18 14:09 | PDOC ---
PULMONARY PROGRESS NOTES Subjective PT FEELS BETTER LESS SOA Vitals Vital Signs Date Time Temp Pulse Resp B/P (MAP) Pulse Ox O2 Delivery O2 Flow Rate FiO2 10/18/18 11:18 97.7 99 18 127/85 (99) 97 Room Air 97.7 ROS: No Nausea, No Chest Pain, No Abdominal Pain, No Increase Cough General: Alert Lungs: Clear, Wheezing (slight), Other (decrease bs) Cardiovascular: S1 Abdomen: Soft Neuro Exam: Alert Extremities: No Edema Skin: Warm Labs Laboratory Tests Test 10/17/18 03:30 10/18/18 04:30 White Blood Count 10.7 x10^3/uL (4.0-11.0) 13.3 x10^3/uL (4.0-11.0) Red Blood Count 4.30 x10^6/uL (4.30-5.70) 4.22 x10^6/uL (4.30-5.70) Hemoglobin 8.9 g/dL (13.0-17.5) 8.7 g/dL (13.0-17.5) Hematocrit 28.9 % (39.0-53.0) 28.7 % (39.0-53.0) Mean Corpuscular Volume 67 fL (79-100) 68 fL (79-100) Mean Corpuscular Hemoglobin 21 pg (25-35) 21 pg (25-35) Mean Corpuscular Hemoglobin Concent 31 g/dL (31-37) 30 g/dL (31-37) Red Cell Distribution Width 29.8 % (11.5-14.5) 29.5 % (11.5-14.5) Platelet Count 95 x10^3/uL (140-400) 120 x10^3/uL (140-400) Neutrophils (%) (Auto) 67 % (31-73) 73 % (31-73) Lymphocytes (%) (Auto) 13 % (24-48) 13 % (24-48) Monocytes (%) (Auto) 17 % (0-9) 12 % (0-9) Eosinophils (%) (Auto) 2 % (0-3) 2 % (0-3) Basophils (%) (Auto) 0 % (0-3) 0 % (0-3) Neutrophils # (Auto) 7.1 x10^3uL (1.8-7.7) 9.7 x10^3uL (1.8-7.7) Lymphocytes # (Auto) 1.4 x10^3/uL (1.0-4.8) 1.7 x10^3/uL (1.0-4.8) Monocytes # (Auto) 1.8 x10^3/uL (0.0-1.1) 1.6 x10^3/uL (0.0-1.1) Eosinophils # (Auto) 0.2 x10^3/uL (0.0-0.7) 0.3 x10^3/uL (0.0-0.7) Basophils # (Auto) 0.0 x10^3/uL (0.0-0.2) 0.1 x10^3/uL (0.0-0.2) Sodium Level 136 mmol/L (136-145) 132 mmol/L (136-145) Potassium Level 3.7 mmol/L (3.5-5.1) 3.8 mmol/L (3.5-5.1) Chloride Level 104 mmol/L (98-107) 101 mmol/L (98-107) Carbon Dioxide Level 21 mmol/L (21-32) 20 mmol/L (21-32) Anion Gap 11 (6-14) 11 (6-14) Blood Urea Nitrogen 16 mg/dL (8-26) 13 mg/dL (8-26) Creatinine 0.9 mg/dL (0.7-1.3) 0.8 mg/dL (0.7-1.3) Estimated GFR (Cockcroft-Gault) 85.5 98.0 BUN/Creatinine Ratio 18 (6-20) 16 (6-20) Glucose Level 107 mg/dL (70-99) 88 mg/dL (70-99) Calcium Level 8.1 mg/dL (8.5-10.1) 8.1 mg/dL (8.5-10.1) Total Bilirubin 2.3 mg/dL (0.2-1.0) 2.2 mg/dL (0.2-1.0) Aspartate Amino Transf (AST/SGOT) 64 U/L (15-37) 49 U/L (15-37) Alanine Aminotransferase (ALT/SGPT) 350 U/L (16-63) 270 U/L (16-63) Alkaline Phosphatase 87 U/L (46-116) 93 U/L (46-116) Total Protein 5.8 g/dL (6.4-8.2) 6.1 g/dL (6.4-8.2) Albumin 2.3 g/dL (3.4-5.0) 2.4 g/dL (3.4-5.0) Albumin/Globulin Ratio 0.7 (1.0-1.7) 0.6 (1.0-1.7) Laboratory Tests Test 10/18/18 04:30 White Blood Count 13.3 x10^3/uL (4.0-11.0) Red Blood Count 4.22 x10^6/uL (4.30-5.70) Hemoglobin 8.7 g/dL (13.0-17.5) Hematocrit 28.7 % (39.0-53.0) Mean Corpuscular Volume 68 fL (79-100) Mean Corpuscular Hemoglobin 21 pg (25-35) Mean Corpuscular Hemoglobin Concent 30 g/dL (31-37) Red Cell Distribution Width 29.5 % (11.5-14.5) Platelet Count 120 x10^3/uL (140-400) Neutrophils (%) (Auto) 73 % (31-73) Lymphocytes (%) (Auto) 13 % (24-48) Monocytes (%) (Auto) 12 % (0-9) Eosinophils (%) (Auto) 2 % (0-3) Basophils (%) (Auto) 0 % (0-3) Neutrophils # (Auto) 9.7 x10^3uL (1.8-7.7) Lymphocytes # (Auto) 1.7 x10^3/uL (1.0-4.8) Monocytes # (Auto) 1.6 x10^3/uL (0.0-1.1) Eosinophils # (Auto) 0.3 x10^3/uL (0.0-0.7) Basophils # (Auto) 0.1 x10^3/uL (0.0-0.2) Sodium Level 132 mmol/L (136-145) Potassium Level 3.8 mmol/L (3.5-5.1) Chloride Level 101 mmol/L (98-107) Carbon Dioxide Level 20 mmol/L (21-32) Anion Gap 11 (6-14) Blood Urea Nitrogen 13 mg/dL (8-26) Creatinine 0.8 mg/dL (0.7-1.3) Estimated GFR (Cockcroft-Gault) 98.0 BUN/Creatinine Ratio 16 (6-20) Glucose Level 88 mg/dL (70-99) Calcium Level 8.1 mg/dL (8.5-10.1) Total Bilirubin 2.2 mg/dL (0.2-1.0) Aspartate Amino Transf (AST/SGOT) 49 U/L (15-37) Alanine Aminotransferase (ALT/SGPT) 270 U/L (16-63) Alkaline Phosphatase 93 U/L (46-116) Total Protein 6.1 g/dL (6.4-8.2) Albumin 2.4 g/dL (3.4-5.0) Albumin/Globulin Ratio 0.6 (1.0-1.7) Medications Active Scripts Medications Dose Route/Sig Max Daily Dose Days Date Category Lactulose 20 Gm/30 Ml Solution 20 Gm PO PRN TID PRN 30 10/07/18 Rx Tums (Calcium Carbonate) 300 Mg Tab.chew 300 Mg PO TIDAC PRN 10/06/18 Reported Cyclobenzaprine Hcl 10 Mg Tablet 1 Tab PO QHS 10/06/18 Reported Gabapentin (Gabapentin) 300 Mg Capsule 300 Mg PO TID 10/06/18 Reported Klor-Con M20 (Potassium Chloride) 20 Meq Tab.er.prt 40 Meq PO DAILY 09/13/18 Rx [Pantoprazole] 40 MG Tablet.dr 40 Mg PO DAILYAC 09/13/18 Rx Hydroxyzine Pamoate 25 Mg Capsule 25 Mg PO PRN Q8HRS PRN 30 09/13/18 Rx Aspirin Ec (Aspirin) 81 Mg Tablet.dr 81 Mg PO DAILYWBKFT 09/13/18 Rx [Diltiazem Hcl] 240 MG Cap.er.24h 240 Mg PO DAILY 09/13/18 Rx Metoprolol Tartrate 25 Mg Tablet 25 Mg PO BID 09/13/18 Rx Vitamin B-1 (Thiamine Mononitrate) 100 Mg Tablet 100 Mg PO DAILY 02/07/17 Rx Hydrocodone-Apap 7.5-325 (Hydrocodone Bit/Acetaminophen) 1 Each Tablet 1 Tab PO PRN Q3HRS PRN 02/07/17 Rx Folic Acid 1 Mg Tablet 1 Mg PO DAILY 02/07/17 Rx Impression . 1. Acute hypoxic respiratory failure with multisystem organ involvement. The etiology of respiratory failure secondary to sepsis and acute liver failure. 2. Significantly abnormal liver function tests related to acute hepatic failure in a patient who has hepatitis C. 3. Acute blood loss anemia secondary to gastrointestinal bleed. 4. Coagulopathy with high INR of 5.2 related to liver disease and sepsis. 5. Thrombocytopenia. 6. Abnormal chest x-ray consistent with pneumonia. 7. Recently abnormal echo with [id number] mitral regurgitation and ejection fraction of 50%. 8. Severe metabolic acidosis secondary to lactic acidosis resulting from sepsis along with underlying liver failure. 9. Possible underlying COPD/tobaccoism. 10. Hyperkalemia. 11. NATHANIEL 12. ABDOMINAL PAIN CT 10/14 IMPRESSION: 1. Persistent mural thickening involving the cecum raising the possibility of neoplasm versus nonspecific colitis. 2. A small amount of free fluid has developed in the abdomen and pelvis. 3. Mild generalized mesenteric edema. 4. Increasing small right pleural effusion and new small left pleural effusion with mild bibasilar atelectasis. 5. Cholelithiasis. Plan . RESP STATUS COMPENSATED D/W DR LAMBERT D/C [place] PARESH FONSECA MD October 18, 2018 14:09
[2018-10-18 14:59] VITALS: BP 136/88
--- NOTE | 2018-10-18 15:15 | NUR ---
PATIENT GIVEN INFORMATION UPON DISCHARGE REGARDING, MEDICATIONS, FOLLOW UP APPTS, HOME HEALTH CARE. PT LEFT WITH ALL BELONGINGS AND BROTHER NICHO TO PICK THE PT UP. [phone].
--- NOTE | 2018-10-18 16:57 | NUR ---
Pts scripts called to [facility] in [place]. Brother jefferson notified that all scripts should be wtg. no issues with removing IV line.
== END 2018-10-18 16:30 | disposition home health service (06) | DRG 871 ==
LOC: ER 21:38 → 1 WEST ICU 22:30 → 2 SOUTH 10-15 15:40
PROVIDERS: ADMIT Family Medicine; ATTEND Family Medicine
PROC: 02H633Z Insertion of Infusion Device into Right Atrium, Percutaneous Approach (ICD-10-PCS; principal; 2018-10-11)
PROC: B244ZZZ Ultrasonography of Right Heart (ICD-10-PCS; 2018-10-11)
PROC: 30233N1 Transfusion of Nonautologous Red Blood Cells into Peripheral Vein, Percutaneous Approach (ICD-10-PCS; 2018-10-11)
PROC: 5A1D70Z Performance of Urinary Filtration, Intermittent, Less than 6 Hours Per Day (ICD-10-PCS; 2018-10-11)
DX: A41.9 Sepsis, unspecified organism (principal); J96.01 Acute respiratory failure with hypoxia; K72.00 Acute and subacute hepatic failure without coma; R65.21 Severe sepsis with septic shock; J69.0 Pneumonitis due to inhalation of food and vomit; K76.7 Hepatorenal syndrome; G93.41 Metabolic encephalopathy; N17.9 Acute kidney failure, unspecified; B17.9 Acute viral hepatitis, unspecified; D62 Acute posthemorrhagic anemia; D68.4 Acquired coagulation factor deficiency; E87.1 Hypo-osmolality and hyponatremia; J98.11 Atelectasis; J90 Pleural effusion, not elsewhere classified; I42.6 Alcoholic cardiomyopathy; K55.9 Vascular disorder of intestine, unspecified; I48.1 Persistent atrial fibrillation; T81.82XA Emphysema (subcutaneous) resulting from a procedure, initial encounter; F10.20 Alcohol dependence, uncomplicated; G89.29 Other chronic pain; Z88.8 Allergy status to other drugs, medicaments and biological substances; K21.9 Gastro-esophageal reflux disease without esophagitis; L29.9 Pruritus, unspecified; F17.210 Nicotine dependence, cigarettes, uncomplicated; B18.2 Chronic viral hepatitis C; I34.0 Nonrheumatic mitral (valve) insufficiency; E87.5 Hyperkalemia; K70.9 Alcoholic liver disease, unspecified; Z66 Do not resuscitate; I12.9 Hypertensive chronic kidney disease with stage 1 through stage 4 chronic kidney disease, or unspecified chronic kidney disease; N18.9 Chronic kidney disease, unspecified; R68.0 Hypothermia, not associated with low environmental temperature; Y83.8 Other surgical procedures as the cause of abnormal reaction of the patient, or of later complication, without mention of misadventure at the time of the procedure; J44.9 Chronic obstructive pulmonary disease, unspecified; K80.20 Calculus of gallbladder without cholecystitis without obstruction; E87.6 Hypokalemia; G25.3 Myoclonus; K74.60 Unspecified cirrhosis of liver; K76.0 Fatty (change of) liver, not elsewhere classified; Z82.0 Family history of epilepsy and other diseases of the nervous system; Z71.6 Tobacco abuse counseling; Z80.1 Family history of malignant neoplasm of trachea, bronchus and lung; Z82.49 Family history of ischemic heart disease and other diseases of the circulatory system; Y92.89 Other specified places as the place of occurrence of the external cause; Z91.19 Patient's noncompliance with other medical treatment and regimen
CPT/HCPCS: 36415; 36556; 36600; 51702; 70450; 71045; 72125; 74176; 76700; 76937; 77001; 80048; 80053; 80076; 80307; 80329; 81001; 82140; 82274; 82550; 82805; 82962; 83605; 83690; 83735; 83880; 83930; 84100; 84145; 84484; 85007; 85025; 85027; 85384; 85610; 85730; 86706; 86850; 86900; 86901; 86920; 87040; 87045; 87340; 87493; 93005; 93976; 94640; 94760; 96365; 96367; 96368; 96375; 99291; C1769; C1892; C9113; G0480; J0610; J1160; J1956; J2060; J2185; J2354; J2405; J2543; J3010; J3430; J3475; J3480; J3490; J7030; J7050; J7613; P9016; P9046; 97116